=== PATIENT | female | born 1965 | race Hispanic/Latino ===

== ENCOUNTER 2018-08-21 14:21 | Emergency (ER) | payer OTHER ==
--- OUTSIDE RECORDS SUMMARY | 2018-08-21 14:23 | XMS REPORT | Clinical Summary ---
:1965 Author Organization [facility] Address [address] [place] [address] Phone Care Team Providers Name Role Phone Unavailable Primary Care Provider Unavailable Allergies No Known Allergies Current Medications Prescription Sig. Disp. Refills Start Date End Date Status risperiDONE (RISPERDAL) Take 4 mg by Active 4 MG tablet mouth 2 (two) times daily. insulin syringe-needle To use 4 a day. 400 each 3 05/09/2016 Active U-100 1 mL 31 x 5/16" Syrg Active Problems Problem Noted Date Hypokalemia 05/10/2016 Hypomagnesemia 05/10/2016 Essential hypertension 05/08/2016 Metabolic syndrome 05/08/2016 DM ketoacidosis type II, uncontrolled ([facility]) 05/08/2016 Bipolar affective disorder in remission ([facility]) 05/08/2016 DKA (diabetic ketoacidoses) ([facility]) 05/07/2016 Immunizations Name Dates Previously Given Next Due Influenza Three-TIV PF 5+ YRS 05/09/2016 Social History Tobacco Use Types Packs/Day Years Used Date Never Smoker Sex Assigned at Date Recorded Not on file Last Filed Vital Signs Not on file Plan of Treatment Not on file Results Not on fileafter 08/20/2017
[2018-08-21] MEDS ORDERED: NA CHLORIDE 0.9% 500 ML ONE ×2 (15:26→17:42)
[2018-08-21] MEDS ORDERED: ONDANSETRON 4 MG/2 ML VIAL ONE (15:26)
[2018-08-21] MEDS ORDERED: MORPHINE 4 MG/ML SYR ONE (15:26)
[2018-08-21 15:30] LABS: Absolute Lymphocytes (CBC) 1.1 K/uL (0.7-4.9); Absolute Monocytes 0.4 K/uL (0.1-1.3); Absolute Neutrophil 6.2 K/uL (1.8-8.0); Basophils % 0.3 % (0-1.3); Hematocrit 31.1 % (36.0-45.0); Lymphocytes % 13.9 % (15.3-44.8); MCV 83.9 fL (80-100); MPV 6.6 fL (7.6-11.3); Monocytes % 4.9 % (3.3-12.3); RBC Red Blood Cell Count 3.71 M/uL (3.86-4.86)
[2018-08-21 15:56] LABS: Urine Blood TRACE (NEG); Urine Glucose NEGATIVE (NEG); Urine Protein NEGATIVE (NEG); Urine Specific Gravity 1.025 (1.005-1.030)
[2018-08-21 16:32] LABS: Albumin 3.9 g/dL (3.4-5.0); Bilirubin Direct 0.2 mg/dL (0-0.2); Bilirubin Total 0.3 mg/dL (0.2-1.0); Potassium 3.5 mmol/L (3.5-5.1); Protein, Total 8.3 g/dL (6.4-8.2)
[2018-08-21 17:02] LABS: Urine Bacteria <20 /HPF (<20); Urine Culture Reflex Order REFLEXED; Urine RBC <5 /HPF (NONE SEEN)
--- NOTE | 2018-08-21 17:11 | RAD REPORT ---
EXAM DESCRIPTION: CT - Abdomen Pelvis W Contrast - 08/21/2018 4:48 pm CLINICAL HISTORY: Abdominal pain with vomiting. Status post hysterectomy approximately 2 weeks ago COMPARISON: October 2017 TECHNIQUE: Computed axial tomography of the abdomen pelvis was obtained. 100 cc Isovue-300 was admin istered intravenously. Oral contrast was not requested which limits evaluation of bowel. All CT scans are performed using dose optimization technique as appropriate and may include automated exposure control or mA/KV adjustment according to patient size. FINDINGS: Liver has a diminished attenuation consistent with fatty infiltration Spleen, pancreas, and adrenals appear unremarkable. Mild renal cortical thinning likely secondary to prior inflammation There is no evidence of diverticulitis. Appendix is normal A hysterectomy has been performed. Air is present within the vagina. Sigmoid colon abuts the vagina. Significant stranding within the adjacent fat is not seen. A fluid collection is not noted A heterogeneous fluid collection is present within the anterior subcutaneous fat of the pelvis near m idline measuring 55 millimeters IMPRESSION: Heterogeneous fluid collection within the anterior subcutaneous fat of the pelvis near m idline measuring 55 millimeters likely represents a subacute hematoma Small amount of air is present within the vagina. Presumably this is not significant. Infection and f istula can result in this appearance and should be correlated clinically
--- NOTE | 2018-08-21 17:48 | ER ---
Nurse's Notes [facility] Name: Mary Jane Jacobsen Age: 53 yrs Sex: Female : 1965 Arrival Date: 08/21/2018 Time: 14:24 Bed 7 Private MD: Diagnosis: Hematoma of abdominal wall Presentation: 08/21 14:33 Presenting complaint: Patient states: lower abd pain. Pt states "the abdominal pain aa5 started right after I vomited about 2 days ago and it felt like something ruptured inside". Pt states "I just vomited once". Pt reports hysterectomy completed 08/09/18 at [facility]. Transition of care: patient was not received from another setting of care. Onset of symptoms was August 2018. Risk Assessment: Do you want to hurt yourself or someone else? Patient reports no desire to harm self or others. Initial Sepsis Screen: Does the patient meet any 2 criteria? No. Patient's initial sepsis screen is negative. Does the patient have a suspected source of infection? No. Patient's initial sepsis screen is negative. Care prior to arrival: None. 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 - Social history:: Smoking status: Patient/guardian denies using tobacco. - Ebola Screening: : No symptoms or risks identified at this time. - Family history:: not pertinent. - Hospitalizations: : Patient was recently seen at. Screenin:22 Abuse screen: Denies threats or abuse. Nutritional screening: No deficits noted. la1 Tuberculosis screening: No symptoms or risk factors identified. Fall Risk None identified. Assessment: 15:21 General: Appears uncomfortable, Behavior is calm, cooperative. Pain: Complains of pain la1 in suprapubic area, right lower quadrant and left lower quadrant. Neuro: Level of Consciousness is awake, alert, obeys commands, Oriented to person, place, time, situation. Cardiovascular: Capillary refill < 3 seconds Patient's skin is warm and dry. Respiratory: Airway is patent Respiratory effort is even, unlabored, Respiratory pattern is regular, symmetrical. GI: Abdomen is obese, Bowel sounds present X 4 quads. Abd is soft X 4 quads. : No signs and/or symptoms were reported regarding the genitourinary system. 18:07 Reassessment: Patient appears in no apparent distress at this time. No changes from la1 previously documented assessment. Patient and/or family updated on plan of care and expected duration. Pain level reassessed. Patient is alert, oriented x 3, equal unlabored respirations, skin warm/dry/pink. GI: surgical abdominal wound well approximated without redness swelling or drainage. Vital Signs: 14:35 BP 139 / 80; Pulse 114; Resp 18 S; Temp 97.2(TE); Pulse Ox 96% on R/A; Weight 91.63 kg aa5 (R); Height 5 ft. 5 in. (165.10 cm) (R); Pain 8/10; 16:13 BP 124 / 77; Pulse 98; Resp 16; Pulse Ox 98% on R/A; la1 18:07 BP 122 / 74; Pulse 86; Resp 16; Pulse Ox 98% on R/A; la1 14:35 Body Mass Index 33.61 (91.63 kg, 165.10 cm) aa5 ED Course: 14:24 Patient arrived in ED. as 14:34 Triage completed. aa5 14:35 Arm band placed on. aa5 14:36 Rosendo Colmenares, RN is Primary Nurse. la1 14:37 Lyndon Causey MD is Attending Physician. rn 15:21 No provider procedures requiring assistance completed. Inserted saline lock: 20 gauge la1 in right antecubital area, using aseptic technique. Blood collected. 15:54 Radiology exam delayed due to lab results not completed at this time. (BUN/Creatinine). jg6 16:14 Placed in gown. Bed in low position. Call light in reach. la1 16:42 CT completed. Patient moved to CT via wheelchair. Patient moved back from CT. jg6 16:48 CT Abd/Pelvis - W/Contrast In Process Unspecified. EDMS 18:07 IV discontinued, intact, bleeding controlled, No redness/swelling at site. Pressure la1 dressing applied. Administered Medications: 15:35 Drug: NS 0.9% 500 ml Route: IV; Rate: bolus; Site: right antecubital; ph 16:23 Follow up: IV Status: Completed infusion la1 15:35 Drug: morphine 4 mg Route: IVP; Site: right antecubital; ph 16:23 Follow up: Response: No adverse reaction; Pain is decreased la1 15:35 Drug: Zofran 4 mg Route: IVP; Site: right antecubital; ph 16:23 Follow up: Response: No adverse reaction la1 18:07 Not Given (Physician Discretion): NS 0.9% 500 ml IV at bolus once la1 Outcome: 17:48 Discharge ordered by . rn 18:07 Discharged to home ambulatory. la1 18:07 Condition: stable 18:07 Discharge instructions given to patient, Instructed on discharge instructions, follow up and referral plans. medication usage, Demonstrated understanding of instructions, follow-up care, medications, Prescriptions given X 3. 18:08 Patient left the ED. la1 Addendum: 08/24/2018 08:47 Addendum: Culture Results: Positive urine culture. Instruct pt to follow up with PCP a a5 (sensitive to other cephalosporins) per Sandra Obrien NP. Unable to contact patient, pt's phone number not active at this time. Attempted to contact pt's daughter Jodie per contact information on file and phone number does not belong to pt's daughter. Signatures: Dispatcher [employer] Elana Willoughby Roman, MD MD rn Calderon, Audri, RN RN aa5 Rosendo Colmenares RN RN laYvette Tellez RN RN Brianda Friend
--- NOTE | 2018-08-21 17:48 | EDPHYS ---
Physician Documentation [facility] Name: Mary Jane Jacobsen Age: 53 yrs Sex: Female : 1965 Arrival Date: 08/21/2018 Time: 14:24 Bed 7 Private MD: ED Physician Lyndon Causey HPI: 08/21 15:21 This 53 yrs old Female presents to ER via Ambulatory with complaints of rn Abdominal Pain - post hysterectomy. 15:21 The patient presents with abdominal pain. rn 15:21 Onset: The symptoms/episode began/occurred 2 day(s) ago. The symptoms do not radiate. rn Associated signs and symptoms: Pertinent positives: nausea and vomiting, constipation, Pertinent negatives: fever, hematuria, vaginal discharge, vomiting blood. The symptoms are described as crampy, intermittent, sharp. Modifying factors: The symptoms are alleviated by nothing, the symptoms are aggravated by movement, touching the area, vomiting. Severity of pain: At its worst the pain was moderate in the emergency department the pain has improved. The patient has not experienced similar symptoms in the past. Reports hysterectomy at [facility] almost 2 weeks ago, uncomplicated surgery, was doing fine until 2 days ago, had single episode of vomiting, states "a lot", and felt something in abdomen "rip open", + constipation, but having bowel movements, ran out of pain meds recently. . 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 - Social history:: Smoking status: Patient/guardian denies using tobacco. - Ebola Screening: : No symptoms or risks identified at this time. - Family history:: not pertinent. - Hospitalizations: : Patient was recently seen at. ROS: 15:21 Constitutional: Negative for fever, chills, and weight loss, Eyes: Negative for injury, rn pain, redness, and discharge, Neck: Negative for injury, pain, and swelling, Cardiovascular: Negative for chest pain, palpitations, and edema, Respiratory: Negative for shortness of breath, cough, wheezing, and pleuritic chest pain, Abdomen/GI: + abdominal pain and constipation MS/Extremity: Negative for injury and deformity, Skin: Negative for injury, rash, and discoloration, Neuro: Negative for headache, weakness, numbness, tingling, and seizure. Exam: 15:21 Constitutional: Overweight female, no acute distress Head/Face: Normocephalic, rn atraumatic. Eyes: Pupils equal round and reactive to light, extra-ocular motions intact. Lids and lashes normal. Conjunctiva and sclera are non-icteric and not injected. Cornea within normal limits. Periorbital areas with no swelling, redness, or edema. Cardiovascular: tachycardic, regular, no murmur Respiratory: Lungs have equal breath sounds bilaterally, clear to auscultation. No increased work of breathing, no retractions or nasal flaring. Abdomen/GI: soft, mild LLQ tenderness, wound c/d/i, no signs of superficial infection Skin: Warm, dry with normal turgor. Normal color with no rashes, no lesions, and no evidence of cellulitis. MS/ Extremity: Pulses equal, no cyanosis. Neurovascular intact. Full, normal range of motion. Equal circumference. Neuro: Awake and alert, GCS 15, oriented to person, place, time, and situation. Cranial nerves II-XII grossly intact. Motor strength 5/5 in all extremities. Sensory grossly intact. Vital Signs: 14:35 BP 139 / 80; Pulse 114; Resp 18 S; Temp 97.2(TE); Pulse Ox 96% on R/A; Weight 91.63 kg aa5 (R); Height 5 ft. 5 in. (165.10 cm) (R); Pain 8/10; 16:13 BP 124 / 77; Pulse 98; Resp 16; Pulse Ox 98% on R/A; la1 18:07 BP 122 / 74; Pulse 86; Resp 16; Pulse Ox 98% on R/A; la1 14:35 Body Mass Index 33.61 (91.63 kg, 165.10 cm) aa5 MDM: 14:37 Patient medically screened. rn 17:41 Differential diagnosis: diverticulitis, non-specific abd pain, urinary tract infection, rn hematoma, post-op complication, fluid collection. Data reviewed: vital signs, nurses notes, lab test result(s), radiologic studies, CT scan. Counseling: I had a detailed discussion with the patient and/or guardian regarding: the historical points, exam findings, and any diagnostic results supporting the discharge/admit diagnosis, lab results, radiology results, the need for outpatient follow up, to return to the emergency department if symptoms worsen or persist or if there are any questions or concerns that arise at home. Response to treatment: the patient's symptoms have markedly improved after treatment, and as a result, I will discharge patient. Special discussion: Based on the patient's Hx, exam, and Dx evaluation, there is no indication for emergent surgery or inpatient Tx. It is understood by the patient/guardian that if the Sx's persist or worsen they need to return immediately for re-evaluation. I discussed with the patient/guardian in detail that at this point there is no indication for admission to the hospital. It is understood, however, that if the symptoms persist or worsen the patient needs to return immediately for re-evaluation. ED course: Pt with ct showing some post-op changes along with subcutaneous hematoma, no stranding, no sign of fluid collection or stranding, normal WBC, afebrile, non-toxic, hematoma of subcutaneous tissue fits with story of vomiting and feeling like something tore, only involves subcutaneous tissues, peritoneum intact, will dc home with pain meds, warm compresses, abx, and has appt with her surgeon in 1 week. . 08/21 14:57 Order name: Basic Metabolic Panel; Complete Time: 17: rn 08/21 14:57 Order name: CBC with Diff; Complete Time: 17: rn 08/21 14:57 Order name: Creatinine for Radiology; Complete Time: 17: rn 08/21 14:57 Order name: Hepatic Function; Complete Time: 17: rn 08/21 14:57 Order name: Lipase; Complete Time: 17:09 rn 08/21 14:57 Order name: Urine Microscopic Only; Complete Time: 17:09 rn 08/21 14:57 Order name: IV Saline Lock; Complete Time: 15:42 rn 08/21 14:57 Order name: CT Abd/Pelvis - W/Contrast; Complete Time: 17:20 rn 08/21 15:44 Order name: Urine Dipstick--Ancillary (enter results); Complete Time: 17:09 eb 08/21 17:03 Order name: Urine Culture EDTX 08/21 14:57 Order name: Labs collected and sent; Complete Time: 15:42 rn 08/21 14:57 Order name: Urine Dipstick-Ancillary (obtain specimen); Complete Time: 15:42 rn Administered Medications: 15:35 Drug: NS 0.9% 500 ml Route: IV; Rate: bolus; Site: right antecubital; ph 16:23 Follow up: IV Status: Completed infusion la1 15:35 Drug: morphine 4 mg Route: IVP; Site: right antecubital; ph 16:23 Follow up: Response: No adverse reaction; Pain is decreased la1 15:35 Drug: Zofran 4 mg Route: IVP; Site: right antecubital; ph 16:23 Follow up: Response: No adverse reaction la1 18:07 Not Given (Physician Discretion): NS 0.9% 500 ml IV at bolus once la1 Disposition: 08/21/18 17:48 Discharged to Home. Impression: Hematoma of abdominal wall. - Condition is Stable. - Discharge Instructions: Hematoma. - Prescriptions for Keflex 500 mg Oral Capsule - take 1 capsule by ORAL route every 12 hours for 10 days; 20 capsule. Tylenol- Codeine #3 300-30 mg Oral Tablet - take 1 tablet by ORAL route every 6 hours As needed; 15 tablet. Doxycycline Monohydrate 100 mg Oral Tablet - take 1 tablet by ORAL route every 12 hours for 10 days; 20 tablet. - Medication Reconciliation Form, Thank You Letter, Antibiotic Education, Prescription Opioid Use form. - Follow up: Private Physician; When: 5 - 6 days; Reason: Recheck today's complaints, Re-evaluation by your physician. - Problem is new. - Symptoms have improved. Signatures: Dispatcher [employer] EDMS Lyndon Causey MD MD rn Calderon, Audri, RN RN aa5 Rosendo Colmenares RN RN la1 Yvette Davis RN RN ph Corrections: (The following items were deleted from the chart) 18:08 17:48 08/21/2018 17:48 Discharged to Home. Impression: Hematoma of abdominal wall. la1 Condition is Stable. Forms are Medication Reconciliation Form, Thank You Letter, Antibiotic Education, Prescription Opioid Use. Follow up: Private Physician; When: 5 - 6 days; Reason: Recheck today's complaints, Re-evaluation by your physician. Problem is new. Symptoms have improved. rn
[2018-08-21 18:17] VITALS: TEMP 97.2
[2018-08-21 18:18] VITALS: O2SAT 98
[2018-08-21 18:20] VITALS: BP 122/74
== END 2018-08-21 18:08 | disposition home or self-care (01) ==
LOC: ER 14:21
DX: S30.1XXA Contusion of abdominal wall, initial encounter (principal); Z90.710 Acquired absence of both cervix and uterus; I10 Essential (primary) hypertension
CPT/HCPCS: 36415; 74177; 80048; 80076; 83690; 85025; 87077; 87086; 87088; 87186; 96361; 96374; 96375; 99284; J2405; Q9967; 81003; 81015

== ENCOUNTER 2018-08-26 16:43 | Emergency (ER) | payer OTHER ==
--- OUTSIDE RECORDS SUMMARY | 2018-08-26 17:07 | XMS REPORT | Clinical Summary ---
:1965 [address] [facility] Address [address] [place] [address] Phone Care Team Providers Name Role Phone [...] syndrome 05/08/2016 DM ketoacidosis type II, uncontrolled ([facility]) 05/08/2016 Bipolar affective disorder in remission ([facility]) 05/08/2016 DKA (diabetic ketoacidoses) ([facility]) 05/07/2016 Immunizations Name Dates Previously Given Next Due Influenza Three-TIV PF 5+ YRS 05/09/2016 Social History Tobacco Use Types Packs/Day Years Used Date Never Smoker Sex Assigned at Date Recorded Not on file Last Filed Vital Signs Not on file Plan of Treatment Not on file Results Not on fileafter 08/25/2017
[2018-08-26] MEDS ORDERED: NA CHLORIDE 0.9% 500 ML ONE (17:38)
[2018-08-26 17:50] LABS: Absolute Monocytes 0.4 K/uL (0.1-1.3); Absolute Neutrophil 4.6 K/uL (1.8-8.0); Basophils % 0.3 % (0-1.3); Eosinophils % 4.7 % (0-4.4); Hematocrit 31.2 % (36.0-45.0); Lymphocytes % 16.5 % (15.3-44.8); MCH 28.9 pg (27.0-35.0); MPV 6.7 fL (7.6-11.3); Monocytes % 5.7 % (3.3-12.3); RBC Red Blood Cell Count 3.75 M/uL (3.86-4.86)
[2018-08-26] MEDS ORDERED: FENTANYL CITR 100 MCG/2 ML ONE (18:08)
[2018-08-26 18:45] LABS: ALT/SGPT 54 U/L (12-78); AST/SGOT 28 U/L (15-37); Alkaline Phosphatase 108 U/L (45-117); BUN Blood Urea Nitrogen 24 mg/dL (7-18); Bicarbonate 29 mmol/L (21-32); Bilirubin Direct < 0.1 mg/dL (0-0.2); Bilirubin Total 0.3 mg/dL (0.2-1.0); Glucose Level 129 mg/dL (74-106); Lipase 294 U/L (73-393); Magnesium 1.9 mg/dL (1.8-2.4); Potassium 3.5 mmol/L (3.5-5.1); Sodium Level 140 mmol/L (136-145)
[2018-08-26] MEDS ORDERED: D50W 25 GM/50 ML SYRINGE IV ONE (18:55)
[2018-08-26] MEDS ORDERED: CLINDAMYCIN 900MG/D5W 900 MG/50 ML BAG IV ONE (19:02)
[2018-08-26] MEDS ORDERED: SMZ./TMP. 800/160 MG TABLET ONE (19:02)
--- NOTE | 2018-08-26 19:57 | ER ---
Nurse's Notes [facility] Name: Mary Jane Jacobsen Age: 53 yrs Sex: Female : 1965 Arrival Date: 08/26/2018 Time: 16:47 Bed 8 Private MD: Diagnosis: Cellulitis of abdominal wall Presentation: 08/26 16:51 Presenting complaint: Patient states: pt had a hysterectomy 2 weeks ago, pt was seen sv here Thursday for having the incision open after coughing. Pt reports that now her incision has opened up more and "leaking stuff.". Transition of care: patient was not received from another setting of care. Onset of symptoms was August 26, 2018. Care prior to arrival: None. 16:51 Method Of Arrival: Wheelchair sv 16:51 Acuity: MILLY 3 sv 17:20 Risk Assessment: Do you want to hurt yourself or someone else? Patient reports no hj desire to harm self or others. Initial Sepsis Screen: Does the patient meet any 2 criteria? No. Patient's initial sepsis screen is negative. Does the patient have a suspected source of infection? No. Patient's initial sepsis screen is negative. Triage Assessment: 17:19 General: Appears in no apparent distress. uncomfortable, Behavior is calm, cooperative, hj appropriate for age. Pain: Complains of pain in abdomen. EENT: No signs and/or symptoms were reported regarding the EENT system. Neuro: Level of Consciousness is awake, alert, obeys commands, Oriented to person, place, time, situation, Appropriate for age. Cardiovascular: Capillary refill < 3 seconds Patient's skin is warm and dry. Respiratory: Airway is patent Respiratory effort is even, unlabored, Respiratory pattern is regular, symmetrical. GI: Reports lower abdominal pain, incision sites; stats" my incision is open". : No signs and/or symptoms were reported regarding the genitourinary system. Derm: Musculoskeletal: No signs and/or symptoms reported regarding the musculoskeletal system. 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 - Social history:: Smoking status: Patient/guardian denies using tobacco. - Ebola Screening: : No symptoms or risks identified at this time. Screenin:19 Abuse screen: Denies threats or abuse. Denies injuries from another. Nutritional hj screening: No deficits noted. Tuberculosis screening: No symptoms or risk factors identified. Fall Risk None identified. Assessment: 17:22 Reassessment: see triage for assessment;. hj 18:39 Reassessment: awaiting results and POC:. hj 20:07 Reassessment: Patient and/or family updated on plan of care and expected duration. Pain tl1 level reassessed. Patient is alert, oriented x 3, equal unlabored respirations, skin warm/dry/pink. Patient states feeling better. Patient states symptoms have improved. Vital Signs: 16:52 BP 152 / 81; Pulse 101; Resp 18; Temp 97.5; Pulse Ox 99% ; Weight 92.08 kg; Height 5 sv ft. 5 in. (165.10 cm); Pain 10/10; 18:39 BP 133 / 69; Pulse 95; Resp 18; Pulse Ox 100% on R/A; hj 19:08 BP 146 / 72; Pulse 101; Resp 17; Pulse Ox 98% on R/A; tl1 19:36 BP 148 / 82; Pulse 99; Pulse Ox 97% on R/A; tl2 19:55 BP 148 / 82; Pulse 96; Resp 18; Pulse Ox 100% on R/A; mt 20:08 Temp 97.2; Pain 2/10; tl1 16:52 Body Mass Index 33.78 (92.08 kg, 165.10 cm) sv ED Course: 16:47 Patient arrived in ED. as 16:52 Triage completed. sv 16:53 Arm band placed on. sv 17:18 Justni Linares, GAVIN is Primary Nurse. hj 17:19 Initial lab(s) drawn, by wy. Inserted saline lock: 22 gauge in right antecubital area, hj using aseptic technique. Blood collected. 17:20 Patient has correct armband on for positive identification. Placed in gown. Bed in low hj position. Call light in reach. Side rails up X 1. 17:22 Miles Yu PA is PHCP. cp 17:22 Roly Car MD is Attending Physician. cp 19:14 Hui Adorno, GAVIN is Primary Nurse. tl1 20:08 No provider procedures requiring assistance completed. IV discontinued, intact, tl1 bleeding controlled, No redness/swelling at site. Pressure dressing applied. 20:11 Primary Nurse role handed off by Hui Adorno RN tl1 20:32 Wound care: to surgical incision located on abdomen was cleaned with with normal tl1 saline, dressed with steri strips. Administered Medications: 17:30 Drug: NS 0.9% 500 ml Route: IV; Rate: bolus; Site: right antecubital; hj 20:09 Follow up: IV Status: Completed infusion tl1 17:58 Drug: fentaNYL (PF) 25 mcg Route: IVP; Site: right antecubital; hj 20:03 Follow up: Response: No adverse reaction; Marked relief of symptoms; Pain is decreased tl1 18:48 Drug: D50W 50 ml Route: IVP; Site: right antecubital; hj 20:02 Follow up: Response: No adverse reaction; Marked relief of symptoms; Blood sugar is tl1 elevated 18:50 Drug: Clindamycin 900 mg Route: IVPB; Infused Over: 30 mins; Site: right antecubital; hj 20:09 Follow up: IV Status: Completed infusion tl1 18:50 Drug: Bactrim (160 mg-800 mg (DS) 1 tablet Route: PO; hj 20:03 Follow up: Response: No adverse reaction; No change in condition; Medication tl1 administered at discharge. Point of Care Testing: Blood Glucose: 18:50 Blood Glucose: 42 mg/dL; hj 19:14 Blood Glucose: 160 mg/dL; tl1 Ranges: Outcome: 19:56 Discharge ordered by . cp 20:08 Discharged to home ambulatory, with family. tl1 20:08 Condition: improved 20:08 Discharge instructions given to patient, Instructed on discharge instructions, follow up and referral plans. medication usage, Demonstrated understanding of instructions, follow-up care, medications, Prescriptions given X 2. 20:10 Patient left the ED. tl1 20:34 Patient left the ED. tl1 Signatures: Laurita Hunter RN RN sv Martinez, Amelia as Lasagna, Tonya, RN RN tl1 Justin Linares RN RN hj Page, Corey, PA PA cp Knox, Taylor, RN RN tl2 Mariely Suazo mt
--- NOTE | 2018-08-26 19:57 | EDPHYS ---
Physician Documentation [facility] Name: Mary Jane Jacobsen Age: 53 yrs Sex: Female : 1965 Arrival Date: 08/26/2018 Time: 16:47 Bed 8 Private MD: ED Physician Roly Car HPI: 08/26 17:30 This 53 yrs old Female presents to ER via Wheelchair with complaints of cp Incision Problem. 17:30 The patient presents with abdominal pain in the lower abdomen. cp 17:30 Onset: The symptoms/episode began/occurred gradually. Associated signs and symptoms: cp Pertinent negatives: nausea and vomiting, chest pain, constipation, diarrhea, dysuria, fever. 17:30 Patient reports having hysterectomy 2 weeks at [facility] and reports noticing cp drainage from wound that has increased since being seen on 08-21-2018. Patient reports she has been taking prescribed doxycycline. 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 - Social history:: Smoking status: Patient/guardian denies using tobacco. - Ebola Screening: : No symptoms or risks identified at this time. ROS: 17:35 Constitutional: Negative for body aches, chills, fever, poor PO intake. cp 17:35 Eyes: Negative for injury, pain, redness, and discharge. cp 17:35 ENT: Negative for drainage from ear(s), ear pain, sore throat, difficulty swallowing, difficulty handling secretions. 17:35 Cardiovascular: Negative for chest pain, edema, palpitations. 17:35 Respiratory: Negative for cough, shortness of breath, wheezing. 17:35 Abdomen/GI: Positive for abdominal pain, Negative for constipation, black/tarry stool, rectal bleeding. 17:35 Neuro: Negative for altered mental status, headache, weakness. 17:35 All other systems are negative. Exam: 17:40 Head/Face: Normocephalic, atraumatic. cp 17:40 Constitutional: The patient appears in no acute distress, alert, awake, non-diaphoretic, non-toxic, well developed, well nourished. 17:40 Eyes: Periorbital structures: appear normal, Conjunctiva: normal, no exudate, no cp injection, Sclera: no appreciated abnormality, Lids and lashes: appear normal, bilaterally. 17:40 ENT: External ear(s): are unremarkable, Nose: is normal, Mouth: Lips: moist, Oral mucosa: moist, Posterior pharynx: is normal, airway is patent, no erythema, no exudate. 17:40 Chest/axilla: Inspection: normal, Palpation: is normal, no crepitus, no tenderness. 17:40 Cardiovascular: Rate: tachycardic, Rhythm: regular. 17:40 Respiratory: the patient does not display signs of respiratory distress, Respirations: normal, no use of accessory muscles, no retractions, no splinting, no tachypnea, labored breathing, is not present, Breath sounds: are clear throughout, no decreased breath sounds, no stridor, no wheezing. 17:40 Abdomen/GI: Inspection: scar(s), are noted in the midline lower abdomen, surgical wound appears with mild dehiscence, scant colored drainage noted, minimal erythema. 17:40 Back: pain, is absent, ROM is normal. Vital Signs: 16:52 BP 152 / 81; Pulse 101; Resp 18; Temp 97.5; Pulse Ox 99% ; Weight 92.08 kg; Height 5 sv ft. 5 in. (165.10 cm); Pain 10/10; 18:39 BP 133 / 69; Pulse 95; Resp 18; Pulse Ox 100% on R/A; hj 19:08 BP 146 / 72; Pulse 101; Resp 17; Pulse Ox 98% on R/A; tl1 19:36 BP 148 / 82; Pulse 99; Pulse Ox 97% on R/A; tl2 19:55 BP 148 / 82; Pulse 96; Resp 18; Pulse Ox 100% on R/A; mt 20:08 Temp 97.2; Pain 2/10; tl1 16:52 Body Mass Index 33.78 (92.08 kg, 165.10 cm) sv MDM: 17:22 Patient medically screened. cp 19:55 Data reviewed: vital signs, nurses notes, old medical records, lab test result(s), and cp as a result, I will discharge patient. 19:55 ED course: VSS. Culture report and CT report of abdomen/pelvis reviewed from visit on cp 08-21-2018. Will have patient stop doxycycline and start oral clindamycin and Bactrim. Patient reports having appt with surgeon tomorrow. 08/26 17:29 Order name: Basic Metabolic Panel; Complete Time: 18:47 cp 08/26 18:47 Interpretation: Normal except: GLUC 129; BUN 24; GFR 58. cp 08/26 17:29 Order name: CBC with Diff; Complete Time: 18:18 cp 08/26 18:18 Interpretation: Normal except: WBC 6.3; RBC 3.75; HGB 10.8; HCT 31.2; PLT 490; MPV 6.7; cp EOSINOPHIL % 4.7. 08/26 17:29 Order name: Creatinine for Radiology; Complete Time: 18:18 cp 08/26 18:18 Interpretation: Abnormal: GFR 58. cp 08/26 17:29 Order name: Hepatic Function; Complete Time: 18:47 cp 08/26 17:29 Order name: Lipase; Complete Time: 18:47 cp 08/26 17:29 Order name: Magnesium; Complete Time: 18:47 cp 08/26 17:29 Order name: IV Saline Lock; Complete Time: 17:30 cp 08/26 17:29 Order name: Labs collected and sent; Complete Time: 17:30 cp 08/26 20:12 Order name: Wound dressing: redress with steri strips; Complete Time: 20:27 cp Administered Medications: 17:30 Drug: NS 0.9% 500 ml Route: IV; Rate: bolus; Site: right antecubital; hj 20:09 Follow up: IV Status: Completed infusion tl1 17:58 Drug: fentaNYL (PF) 25 mcg Route: IVP; Site: right antecubital; hj 20:03 Follow up: Response: No adverse reaction; Marked relief of symptoms; Pain is decreased tl1 18:48 Drug: D50W 50 ml Route: IVP; Site: right antecubital; hj 20:02 Follow up: Response: No adverse reaction; Marked relief of symptoms; Blood sugar is tl1 elevated 18:50 Drug: Clindamycin 900 mg Route: IVPB; Infused Over: 30 mins; Site: right antecubital; hj 20:09 Follow up: IV Status: Completed infusion tl1 18:50 Drug: Bactrim (160 mg-800 mg (DS) 1 tablet Route: PO; 20:03 Follow up: Response: No adverse reaction; No change in condition; Medication tl1 administered at discharge. Point of Care Testing: Blood Glucose: 18:50 Blood Glucose: 42 mg/dL; hj 19:14 Blood Glucose: 160 mg/dL; tl1 Ranges: Critical Glucose Levels:Adult <50 mg/dl or >400 mg/dl <40 mg/dl or >180 mg/dl Disposition: 08/26/18 19:56 Discharged to Home. Impression: Cellulitis of abdominal wall. - Condition is Stable. - Discharge Instructions: Cellulitis, Adult, Surgical Wound Debridement, Care After. - Prescriptions for Clindamycin HCl 300 mg Oral Capsule - take 1 capsule by ORAL route every 6 hours for 10 days; 40 capsule. Bactrim DS 800- 160 mg Oral Tablet - take 1 tablet by ORAL route every 12 hours for 10 days; 20 tablet. - Medication Reconciliation Form, Thank You Letter, Antibiotic Education, Prescription Opioid Use form. - Follow up: Private Physician; When: Tomorrow; Reason: Recheck today's complaints, as scheduled for wound check. - Problem is an ongoing problem. - Symptoms have improved. Addendum: 08/28/2018 13:34 Co-signature as Attending Physician, Roly Car MD. tahir beasley Signatures: Dispatcher [employer] Laurita Rose RN RN sv Rittger, Kevin, MD MD kdr Lasagna, Tonya, RN RN tl1 Justin Linares RN RN hj Page, Corey, PA PA cp Corrections: (The following items were deleted from the chart) 08/26 20:10 19:56 08/26/2018 19:56 Discharged to Home. Impression: Cellulitis of abdominal wall. tl1 Condition is Stable. Forms are Medication Reconciliation Form, Thank You Letter, Antibiotic Education, Prescription Opioid Use. Follow up: Private Physician; When: Tomorrow; Reason: Recheck today's complaints, as scheduled for wound check. Problem is an ongoing problem. Symptoms have improved. cp 20:34 20:10 08/26/2018 19:56 Discharged to Home. Impression: Cellulitis of abdominal wall. tl1 Condition is Stable. Discharge Instructions: Cellulitis, Adult, Surgical Wound Debridement, Care After. Prescriptions for Clindamycin HCl 300 mg Oral Capsule - take 1 capsule by ORAL route every 6 hours for 10 days; 40 capsule, Bactrim DS 800-160 mg Oral Tablet - take 1 tablet by ORAL route every 12 hours for 10 days; 20 tablet. and Forms are Medication Reconciliation Form, Thank You Letter, Antibiotic Education, Prescription Opioid Use. Follow up: Private Physician; When: Tomorrow; Reason: Recheck today's complaints, as scheduled for wound check. Problem is an ongoing problem. Symptoms have improved. tl1
[2018-08-26 20:32] VITALS: BP 148/82
[2018-08-26 20:33] VITALS: O2SAT 100
[2018-08-26 20:34] VITALS: TEMP 97.2
== END 2018-08-26 20:34 | disposition home or self-care (01) ==
LOC: ER 16:43
DX: L03.311 Cellulitis of abdominal wall (principal); I10 Essential (primary) hypertension; Z90.710 Acquired absence of both cervix and uterus
CPT/HCPCS: 36415; 80048; 80076; 83690; 83735; 85025; 96361; 96365; 96375; 99284; J3010; 82962

== ENCOUNTER 2018-11-11 16:37 | Emergency (ER) | payer OTHER ==
--- OUTSIDE RECORDS SUMMARY | 2018-11-11 16:40 | XMS REPORT ---
:1965 Author Organization [facility] Address [address] [place] [address] [place] [id number] Care Team Providers Name Role Phone Unavailable Unavailable Unavailable Problems This patient has no known problems. Allergies, Adverse Reactions, Alerts This patient has no known allergies or adverse reactions. Medications This patient has no known medications.
--- OUTSIDE RECORDS SUMMARY | 2018-11-11 16:40 | XMS REPORT | Clinical Summary ---
:1965 Author Organization [facility] Address [address] [place] [address] Care Team Providers Name Role Phone Magaly Primary Care Provider Allergies No Known Allergies Medications Medication Sig Dispensed Refills Start Date End Date Status risperiDONE (RISPERDAL) Take 4 mg by 0 Active 4 MG tablet mouth 2 (two) times daily. insulin syringe-needle To use 4 a day. 400 each 3 05/09/2016 Active U-100 1 mL 31 x 5/16" Syrg Active Problems Problem Noted Date Hypokalemia 05/10/2016 Hypomagnesemia 05/10/2016 Essential hypertension 05/08/2016 Metabolic syndrome 05/08/2016 DM ketoacidosis type II, uncontrolled 05/08/2016 Bipolar affective disorder in remission 05/08/2016 DKA (diabetic ketoacidoses) 05/07/2016 Immunizations Name Dates Previously Given Next Due Influenza Three-TIV PF 5+ YRS 05/09/2016 Social History Tobacco Use Types Packs/Day Years Used Date Never Smoker Sex Assigned at Date Recorded Not on file Job Start Date Occupation Industry Not on file Not on file Not on file Travel History Travel Start Travel End No recent travel history available. Last Filed Vital Signs Not on file Plan of Treatment Not on file Results Not on fileafter 11/10/2017 Advance Directives For more information, please contact:[facility] [place] [address] [phone] Code Status Date Activated Date Inactivated Comments Full Code 05/07/2016 3:14 PM 05/11/2016 3:28 PM This code status was determined by: Patient
[2018-11-11 17:20] LABS: Absolute Lymphocytes (CBC) 1.7 K/uL (0.7-4.9); Absolute Monocytes 0.4 K/uL (0.1-1.3); Absolute Neutrophil 5.3 K/uL (1.8-8.0); Basophils % 0.4 % (0-1.3); Eosinophils % 3.6 % (0-4.4); Hematocrit 33.7 % (36.0-45.0); Lymphocytes % 21.7 % (15.3-44.8); MPV 7.1 fL (7.6-11.3); Monocytes % 5.1 % (3.3-12.3); RBC Red Blood Cell Count 4.15 M/uL (3.86-4.86)
[2018-11-11] MEDS ORDERED: ONDANSETRON 4 MG/2 ML VIAL ONE (17:26)
[2018-11-11] MEDS ORDERED: MORPHINE 4 MG/ML SYR ONE (17:26)
--- NOTE | 2018-11-11 17:32 | RAD REPORT ---
EXAM DESCRIPTION: RAD - Chest Single View - 11/11/2018 5:18 pm CLINICAL HISTORY: CHEST PAIN Chest pain. COMPARISON: Chest Single View dated 03/29/2016; Chest Single View dated 03/28/2016; CHEST SINGLE VIEW dated 05/24/2014; CHEST SINGLE VIEW dated 09/12/2013 FINDINGS: Portable technique limits examination quality. The lungs are grossly clear. The heart is normal in size. No displaced fractures. IMPRESSION: No acute intrathoracic process suspected.
[2018-11-11 17:38] LABS: Protime INR 0.93
[2018-11-11 17:39] LABS: ALT/SGPT 44 U/L (12-78); AST/SGOT 27 U/L (15-37); Albumin 3.8 g/dL (3.4-5.0); Alkaline Phosphatase 103 U/L (45-117); BUN Blood Urea Nitrogen 18 mg/dL (7-18); Bicarbonate 28 mmol/L (21-32); Bilirubin Direct < 0.1 mg/dL (0-0.2); Bilirubin Total 0.1 mg/dL (0.2-1.0); Glucose Level 131 mg/dL (74-106); Magnesium 1.5 mg/dL (1.8-2.4); NT PRO-BNP 15 pg/mL (<125); Potassium 3.2 mmol/L (3.5-5.1); Protein, Total 7.6 g/dL (6.4-8.2); Sodium Level 141 mmol/L (136-145); Troponin (Emerg Dept Use Only) < 0.02 ng/mL (0.0-0.045)
[2018-11-11] MEDS ORDERED: POTASSIUM CL SA 10 MEQ TAB PO ONE (18:15)
[2018-11-11] MEDS ORDERED: MAGNESIUM SULFATE 1 gm IVPB 1 GM/100 ML BAG IV ONE (18:15)
--- NOTE | 2018-11-11 19:54 | EDPHYS ---
Physician Documentation [facility] Name: Mary Jane Jacobsen Age: 53 yrs Sex: Female : 1965 Arrival Date: 11/11/2018 Time: 16:49 Bed 8 Private MD: ED Physician Vale Navarro HPI: 11/11 17:30 This 53 yrs old Female presents to ER via EMS with complaints of Chest Pain. pm1 17:30 The patient or guardian reports chest pain that is located primarily in the anterior pm1 aspect of left upper chest. Onset: at 13:00. The pain does not radiate. Associated signs and symptoms: Pertinent negatives: abdominal pain, cough, diaphoresis, dizziness, headache, lightheadedness, nausea, palpitations, shortness of breath, vomiting. The chest pain is described as sharp. Duration: The patient or guardian reports a single episode, that is still ongoing. Modifying factors: The symptoms are alleviated by nothing. the symptoms are aggravated by deep breath, palpation of area, moving her left arm. Severity of pain: in the emergency department the pain is unchanged. The patient has not experienced similar symptoms in the past. 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 - Hysterectomy bp Historical: - Allergies: 16:57 NKDA; bp - Home Meds: 16:57 glimepiride 5 MG Oral tab 1 tab twice a day [Active]; lisinopril-hydrochlorothiazide bp 20-12.5 mg Oral tab 1 tab once daily [Active]; metformin 1,000 mg Oral tab 1 tab daily [Active]; atorvastatin 20 mg oral tab 1 tab once daily [Active]; amitriptyline 50 mg Oral tab 2 tabs once daily [Active]; benztropine 2 mg Oral tab 1 tab 2 times per day [Active]; propranolol 40 mg Oral tab 1 tab 2 times per day [Active]; Risperdal 4 mg Oral tab 2 tabs 2 times per day [Active]; Tegretol 200 mg Oral tab 3 tabs nightly [Active]; fenofibrate nanocrystallized 145 mg oral tab 1 tab once daily [Active]; - PMHx: 16:57 Bipolar disorder; Diabetes - NIDDM; High Cholesterol; Hypertension; Schizophrenia; bp Seizures; - Immunization history:: Adult Immunizations up to date. - Social history:: Smoking status: Patient/guardian denies using tobacco. - Ebola Screening: : Patient negative for fever greater than or equal to 101.5 degrees Fahrenheit, and additional compatible Ebola Virus Disease symptoms Patient denies exposure to infectious person Patient denies travel to an Ebola-affected area in the 21 days before illness onset No symptoms or risks identified at this time. ROS: 17:30 Constitutional: Negative for fever, chills, and weight loss, Eyes: Negative for injury, pm1 pain, redness, and discharge, ENT: Negative for injury, pain, and discharge, Neck: Negative for injury, pain, and swelling. 17:30 Respiratory: Negative for shortness of breath, cough, wheezing, and pleuritic chest pain, Abdomen/GI: Negative for abdominal pain, nausea, vomiting, diarrhea, and constipation, Back: Negative for injury and pain, : Negative for injury, bleeding, discharge, and swelling, MS/Extremity: Negative for injury and deformity, Skin: Negative for injury, rash, and discoloration, Neuro: Negative for headache, weakness, numbness, tingling, and seizure. 17:30 Cardiovascular: Positive for chest pain, Negative for edema, orthopnea, palpitations, paroxysmal nocturnal dyspnea. Exam: 17:30 Constitutional: This is a well developed, well nourished patient who is awake, alert, pm1 and in no acute distress. Head/Face: Normocephalic, atraumatic. Eyes: Pupils equal round and reactive to light, extra-ocular motions intact. Lids and lashes normal. Conjunctiva and sclera are non-icteric and not injected. Cornea within normal limits. Periorbital areas with no swelling, redness, or edema. ENT: Nares patent. No nasal discharge, no septal abnormalities noted. Tympanic membranes are normal and external auditory canals are clear. Oropharynx with no redness, swelling, or masses, exudates, or evidence of obstruction, uvula midline. Mucous membranes moist. Neck: Trachea midline, no thyromegaly or masses palpated, and no cervical lymphadenopathy. Supple, full range of motion without nuchal rigidity, or vertebral point tenderness. No Meningismus. Cardiovascular: Regular rate and rhythm with a normal S1 and S2. No gallops, murmurs, or rubs. Normal PMI, no JVD. No pulse deficits. Respiratory: Lungs have equal breath sounds bilaterally, clear to auscultation and percussion. No rales, rhonchi or wheezes noted. No increased work of breathing, no retractions or nasal flaring. Abdomen/GI: Soft, non-tender, with normal bowel sounds. No distension or tympany. No guarding or rebound. No evidence of tenderness throughout. 17:30 Back: No spinal tenderness. No costovertebral tenderness. Full range of motion. Skin: Warm, dry with normal turgor. Normal color with no rashes, no lesions, and no evidence of cellulitis. MS/ Extremity: Pulses equal, no cyanosis. Neurovascular intact. Full, normal range of motion. 17:30 Chest/axilla: Inspection: normal, Palpation: crepitus, is not appreciated, tenderness, that is moderate, of the anterior aspect of left upper chest, that totally reproduces the patient's complaints, reproduced with deep breathing and movement of left arm. 17:30 Neuro: Orientation: is normal, Motor: is normal, moves all fours. Vital Signs: 16:57 BP 149 / 89; Pulse 108; Resp 21; Temp 97; Pulse Ox 100% ; Weight 90.72 kg; bp 17:53 BP 134 / 116; Pulse 105; Resp 13; Pulse Ox 98% ; bp 18:55 BP 128 / 104; Pulse 108; Resp 20; Pulse Ox 98% ; bp 19:10 BP 130 / 82; Pulse 105; Resp 20; Pulse Ox 96% on R/A; Pain 0/10; ca1 19:47 BP 142 / 80; Pulse 104; Resp 18; Pulse Ox 99% on R/A; ca1 MDM: 16:55 Patient medically screened. pm1 19:50 Refusal of service: The patient/guardian displays adequate decision making capability pm1 and despite a detailed discussion of alternatives, benefits, risks, and consequences refuses: Admission to the hospital for further work-up and treatment, repeat troponin. Patient's pain resolved and she wants to go home. Patient present with family and they are present in the room with her decision. 19:52 Data reviewed: vital signs. Data interpreted: Pulse oximetry: on room air is 99 %. pm1 Interpretation: normal. Counseling: I had a detailed discussion with the patient and/or guardian regarding: the historical points, exam findings, and any diagnostic results supporting the discharge/admit diagnosis, lab results, radiology results, the need for outpatient follow up, to return to the emergency department if symptoms worsen or persist or if there are any questions or concerns that arise at home. 11/11 17:01 Order name: Basic Metabolic Panel; Complete Time: 17:50 pm1 11/11 17:01 Order name: CBC with Diff; Complete Time: 17:34 pm1 11/11 17:01 Order name: LFT's; Complete Time: 17:50 pm1 11/11 17:01 Order name: Magnesium; Complete Time: 17:50 pm1 11/11 17:01 Order name: NT PRO-BNP; Complete Time: 17:50 pm1 11/11 17:01 Order name: PT-INR; Complete Time: 17:50 pm1 11/11 17:01 Order name: Troponin (emerg Dept Use Only); Complete Time: 17:50 pm1 11/11 17:01 Order name: XRAY Chest (1 view); Complete Time: 17:34 pm1 11/11 17:01 Order name: EKG; Complete Time: 17:02 pm1 11/11 17:01 Order name: Cardiac monitoring; Complete Time: 17:51 pm1 11/11 17:01 Order name: EKG - Nurse/Tech; Complete Time: 17:51 pm1 11/11 17:01 Order name: IV Saline Lock; Complete Time: 17:51 pm1 11/11 17:01 Order name: Labs collected and sent; Complete Time: 17:52 pm1 11/11 17:01 Order name: O2 Per Protocol; Complete Time: 17:52 pm1 11/11 17:01 Order name: O2 Sat Monitoring; Complete Time: 17:52 pm1 Administered Medications: 17:20 Drug: morphine 4 mg Route: IVP; Site: left antecubital; bp 17:52 Follow up: Response: No adverse reaction; Pain is decreased bp 17:20 Drug: Zofran 4 mg Route: IVP; Site: left antecubital; bp 17:52 Follow up: Response: Pain is decreased bp 18:00 Drug: Magnesium Sulfate 1 grams Route: IVPB; Infused Over: 1 hrs; Site: left bp antecubital; 19:30 Follow up: Response: No adverse reaction; IV Status: Completed infusion ca1 18:00 Drug: Potassium Chloride 40 mEq Route: PO; bp 19:30 Follow up: Response: No adverse reaction ca1 Disposition: 11/11/18 19:53 Discharged to Home. Impression: Chest pain, unspecified. - Condition is Stable. - Discharge Instructions: Nonspecific Chest Pain. - Medication Reconciliation Form, Thank You Letter form. - Follow up: Emergency Department; When: As needed; Reason: Worsening of condition. Follow up: Private Physician; When: 2 - 3 days; Reason: Recheck today's complaints, Continuance of care, Re-evaluation by your physician. - Problem is new. - Symptoms have improved. Addendum: 11/13/2018 15:34 Co-signature as Attending Physician, Vale Navarro MD. m a2 Signatures: Dispatcher [employer] EDMS Ino Chaparro, DEANDRE DECKHAND CRAB BOAT pm1 Joe Soliman, RN RN Vale Hernandez MD MD ma2 Kassi Silva RN RN ca1 Corrections: (The following items were deleted from the chart) 11/11 20:06 19:53 11/11/2018 19:53 Discharged to Home. Impression: Chest pain, unspecified. ca1 Condition is Stable. Forms are Medication Reconciliation Form, Thank You Letter, Antibiotic Education, Prescription Opioid Use. Follow up: Emergency Department; When: As needed; Reason: Worsening of condition. Follow up: Private Physician; When: 2 - 3 days; Reason: Recheck today's complaints, Continuance of care, Re-evaluation by your physician. Problem is new. Symptoms have improved. pm1
--- NOTE | 2018-11-11 19:54 | ER ---
Nurse's Notes [facility] Name: Mary Jane Jacobsen Age: 53 yrs Sex: Female : 1965 Arrival Date: 11/11/2018 Time: 16:49 Bed 8 Private MD: Diagnosis: Chest pain, unspecified Presentation: 11/11 16:50 Presenting complaint: EMS states: LEFT SIDED CP RADIATING TO THE BACK. Transition of bp care: [facility]. Onset of symptoms was November 11, 2018 at 14:30. Risk Assessment: Do you want to hurt yourself or someone else? Patient reports no desire to harm self or others. Initial Sepsis Screen: Does the patient meet any 2 criteria? HR > 90 bpm. No. Patient's initial sepsis screen is negative. Does the patient have a suspected source of infection? No. Patient's initial sepsis screen is negative. Care prior to arrival: Medication(s) given: ASA, 81 mg, x 4, Nitroglycerin, 0.4 mg SL x 1, IV initiated. 20 GA, in the left antecubital area, Glucose check: 142. 16:50 Method Of Arrival: EMS: [facility] bp 16:50 Acuity: MILLY 2 bp Triage Assessment: 16:57 General: Appears in no apparent distress. comfortable, Behavior is cooperative, bp appropriate for age, anxious. Pain: Complains of pain in chest Pain radiates to back. EENT: No deficits noted. Neuro: Level of Consciousness is awake, alert, obeys commands, Oriented to person, place, time, situation, Appropriate for age. Cardiovascular: Rhythm is sinus tachycardia. Respiratory: Airway is patent Respiratory effort is even, unlabored, Respiratory pattern is regular, symmetrical. GI: No signs and/or symptoms were reported involving the gastrointestinal system. : No signs and/or symptoms were reported regarding the genitourinary system. Derm: No deficits noted. Musculoskeletal: Circulation, motion, and sensation intact. Range of motion: intact in all extremities. 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 DEVELOPMENT CONSULTANT: 16:57 LMP N/A - Hysterectomy bp Historical: - Allergies: 16:57 NKDA; bp - Home Meds: 16:57 glimepiride 5 MG Oral tab 1 tab twice a day [Active]; lisinopril-hydrochlorothiazide bp 20-12.5 mg Oral tab 1 tab once daily [Active]; metformin 1,000 mg Oral tab 1 tab daily [Active]; atorvastatin 20 mg oral tab 1 tab once daily [Active]; amitriptyline 50 mg Oral tab 2 tabs once daily [Active]; benztropine 2 mg Oral tab 1 tab 2 times per day [Active]; propranolol 40 mg Oral tab 1 tab 2 times per day [Active]; Risperdal 4 mg Oral tab 2 tabs 2 times per day [Active]; Tegretol 200 mg Oral tab 3 tabs nightly [Active]; fenofibrate nanocrystallized 145 mg oral tab 1 tab once daily [Active]; - PMHx: 16:57 Bipolar disorder; Diabetes - NIDDM; High Cholesterol; Hypertension; Schizophrenia; bp Seizures; - Immunization history:: Adult Immunizations up to date. - Social history:: Smoking status: Patient/guardian denies using tobacco. - Ebola Screening: : Patient negative for fever greater than or equal to 101.5 degrees Fahrenheit, and additional compatible Ebola Virus Disease symptoms Patient denies exposure to infectious person Patient denies travel to an Ebola-affected area in the 21 days before illness onset No symptoms or risks identified at this time. Screenin:02 Abuse screen: Denies threats or abuse. Denies injuries from another. Nutritional bp screening: No deficits noted. Tuberculosis screening: No symptoms or risk factors identified. Fall Risk None identified. Assessment: 17:00 General: SEE TRIAGE NOTE. Pain: Pain began THIS AM. bp 18:56 Reassessment: ALL CURRENT ORDERS COMPLETED, DISPO PENDING. bp 19:10 Reassessment: Patient appears in no apparent distress at this time. Patient and/or ca1 family updated on plan of care and expected duration. Pain level reassessed. Patient is alert, oriented x 3, equal unlabored respirations, skin warm/dry/pink. Pain: Denies pain. 19:50 Reassessment: Discussed importance of repeat Troponin to patient. Refused repeat ca1 Troponin test and requested to go home. . 19:55 Reassessment: Patient appears in no apparent distress at this time. Patient and/or ca1 family updated on plan of care and expected duration. Pain level reassessed. Patient is alert, oriented x 3, equal unlabored respirations, skin warm/dry/pink. Pain: Denies pain. Vital Signs: 16:57 BP 149 / 89; Pulse 108; Resp 21; Temp 97; Pulse Ox 100% ; Weight 90.72 kg; bp 17:53 BP 134 / 116; Pulse 105; Resp 13; Pulse Ox 98% ; bp 18:55 BP 128 / 104; Pulse 108; Resp 20; Pulse Ox 98% ; bp 19:10 BP 130 / 82; Pulse 105; Resp 20; Pulse Ox 96% on R/A; Pain 0/10; ca1 19:47 BP 142 / 80; Pulse 104; Resp 18; Pulse Ox 99% on R/A; ca1 ED Course: 16:49 Patient arrived in ED. bp 16:51 Triage completed. bp 16:53 Ino Chaparro, FEEDER CATCHER is PHCP. pm1 16:53 Vale Navarro MD is Attending Physician. pm1 16:57 Arm band placed on. bp 16:59 EKG done, by interventional technologist. reviewed by Ino Chaparro NP. sm3 17:02 Maintain EMS IV. Dressing intact. Good blood return noted. Site clean \T\ dry. 20 GAUGE bp LEFT AC. Patient maintains SpO2 saturation greater than 95% on room air. 17:02 Patient has correct armband on for positive identification. Placed in gown. Call light bp in reach. monitor tech on. Pulse ox on. NIBP on. 17:07 Joe Soliman, RN is Primary Nurse. bp 17:18 XRAY Chest (1 view) In Process Unspecified. EDMS 20:01 No provider procedures requiring assistance completed. IV discontinued, intact, jd3 bleeding controlled, No redness/swelling at site. Pressure dressing applied. Administered Medications: 17:20 Drug: morphine 4 mg Route: IVP; Site: left antecubital; bp 17:52 Follow up: Response: No adverse reaction; Pain is decreased bp 17:20 Drug: Zofran 4 mg Route: IVP; Site: left antecubital; bp 17:52 Follow up: Response: Pain is decreased bp 18:00 Drug: Magnesium Sulfate 1 grams Route: IVPB; Infused Over: 1 hrs; Site: left bp antecubital; 19:30 Follow up: Response: No adverse reaction; IV Status: Completed infusion ca1 18:00 Drug: Potassium Chloride 40 mEq Route: PO; bp 19:30 Follow up: Response: No adverse reaction ca1 Outcome: 19:53 Discharge ordered by . pm1 20:01 Discharged to home ambulatory, with family. jd3 20:01 Condition: stable 20:01 Discharge instructions given to patient, family, Instructed on discharge instructions, follow up and referral plans. Demonstrated understanding of instructions, follow-up care. 20:06 Patient left the ED. ca1 Signatures: Dispatcher [employer] EDMS Ino Chaparro NP FEEDER CATCHER pm1 Addison Ga RN RN jd3 Joe Soliman RN RN Ashlee Hart sm3 Kassi Silva RN RN ca1
[2018-11-11 21:02] VITALS: TEMP 97
[2018-11-11 21:07] VITALS: BP 142/80; O2SAT 99
--- NOTE | 2018-11-12 06:54 | EKG ---
Test Date: 2018-11-11 Test Time: 16:54:19 Spot Billing Clerk: BI MEASUREMENT RESULTS: Intervals: Rate: 108 NV: 170 QRSD: 96 QT: 358 QTc: 479 [place]: P: 56 NV: 170 QRS: -52 T: 53 INTERPRETIVE STATEMENTS: Sinus tachycardia Left anterior fascicular block Minimal voltage criteria for LVH, may be normal variant Anterior infarct, age undetermined Abnormal ECG Compared to ECG 03/29/2016 05:42:00 Left anterior fascicular block now present Myocardial infarct finding now present Sinus rhythm no longer present Left-axis deviation no longer present Electronically Signed On 11-12-18 06:53:35 DRAMATIC ART TEACHER by Silver Massey
== END 2018-11-11 20:06 | disposition home or self-care (01) ==
LOC: ER 16:37
DX: R07.9 Chest pain, unspecified (principal); I44.4 Left anterior fascicular block; R00.0 Tachycardia, unspecified; R94.31 Abnormal electrocardiogram [ECG] [EKG]; E11.9 Type 2 diabetes mellitus without complications; E78.00 Pure hypercholesterolemia, unspecified; I10 Essential (primary) hypertension; F20.9 Schizophrenia, unspecified; F31.9 Bipolar disorder, unspecified; Z79.84 Long term (current) use of oral hypoglycemic drugs; Z79.899 Other long term (current) drug therapy
CPT/HCPCS: 36415; 71045; 80048; 80076; 83735; 83880; 84484; 85025; 85610; 93005; 96365; 96375; 99285; J2405; J3475

== ENCOUNTER 2019-12-11 11:40 | Emergency (ER) | payer OTHER ==
--- OUTSIDE RECORDS SUMMARY | 2019-12-11 11:42 | XMS REPORT ---
:1965 Author Organization [facility] Address [address] [place] [address] [address] [place] [address] Care Team Providers Name Role Phone Unavailable Unavailable Unavailable Problems This patient has no known problems. Allergies, Adverse Reactions, Alerts This patient has no known allergies or adverse reactions. Medications This patient has no known medications.
[2019-12-11] MEDS ORDERED: NA CHLORIDE 0.9% 1,000 ML ONE (12:43)
[2019-12-11 12:46] LABS: Absolute Lymphocytes (CBC) 0.7 K/uL (0.7-4.9); Basophils % 0.3 % (0-1.3); Hematocrit 37.5 % (36.0-45.0); Lymphocytes % 11.8 % (15.3-44.8); RBC Red Blood Cell Count 4.46 M/uL (3.86-4.86)
[2019-12-11 13:03] LABS: Albumin 4.2 g/dL (3.4-5.0); Bilirubin Direct 0.1 mg/dL (0-0.2); Bilirubin Total 0.3 mg/dL (0.2-1.0); Potassium 3.6 mmol/L (3.5-5.1); Protein, Total 8.3 g/dL (6.4-8.2)
--- NOTE | 2019-12-11 14:27 | EDPHYS ---
Physician Documentation [facility] Name: Mary Jane Jacobsen Age: 54 yrs Sex: Female : 1965 Arrival Date: 12/11/2019 Time: 11:42 Bed 25 Private MD: out of town, doctor ED Physician Roly Car HPI: 12/11 12:17 This 54 yrs old Female presents to ER via Ambulatory with complaints of Fever, pm1 Chills, Diarrhea. 12:17 The patient presents to the emergency department with diarrhea, 3 times since the onset pm1 of symptoms. Onset: The symptoms/episode began/occurred last night. Possible causes: unknown, she thinks it might be the flu. The symptoms are aggravated by nothing. The symptoms are alleviated by nothing. Associated signs and symptoms: Pertinent positives: subjective fever, chills and bodyaches, Pertinent negatives: abdominal pain, nausea, vomiting, cough. It is unknown whether or not the patient has recently seen a physician. Patient presents to the ER with complaints of diarrhea (3 episodes since last night), body aches, subjective fever and chills. Patient is concerned that she might have the flu. No cough, SOB, chest pain, runny nose, sore throat, or earache present. Historical: - Allergies: 11:59 NKDA; aj1 - Home Meds: 11:59 amitriptyline 50 mg Oral tab 2 tabs once daily [Active]; atorvastatin 20 mg Oral tab 1 aj1 tab once daily [Active]; benztropine 2 mg Oral tab 1 tab 2 times per day [Active]; fenofibrate nanocrystallized 145 mg Oral tab 1 tab once daily [Active]; glimepiride 5 MG Oral tab 1 tab twice a day [Active]; lisinopril-hydrochlorothiazide 20-12.5 mg Oral tab 1 tab once daily [Active]; metformin 1,000 mg Oral tab 1 tab daily [Active]; propranolol 40 mg Oral tab 1 tab 2 times per day [Active]; Risperdal 4 mg Oral tab 2 tabs 2 times per day [Active]; Tegretol 200 mg Oral tab 3 tabs nightly [Active]; - PMHx: 11:59 Bipolar disorder; Diabetes - NIDDM; High Cholesterol; Hypertension; Schizophrenia; aj1 Seizures; - Immunization history:: Flu vaccine is up to date. - Coronavirus screen:: The patient has NOT traveled to [place], [place], or [place] in the past 14 days. - Social history:: Smoking status: Patient/guardian denies using tobacco. - Ebola Screening: : Patient denies travel to an Ebola-affected area in the 21 days before illness onset. ROS: 12:17 Eyes: Negative for injury, pain, redness, and discharge, ENT: Negative for injury, pm1 pain, and discharge, Neck: Negative for injury, pain, and swelling, Cardiovascular: Negative for chest pain, palpitations, and edema, Respiratory: Negative for shortness of breath, cough, wheezing, and pleuritic chest pain. 12:17 Back: Negative for injury and pain, : Negative for injury, bleeding, discharge, and swelling, MS/Extremity: Negative for injury and deformity, Skin: Negative for injury, rash, and discoloration, Neuro: Negative for headache, weakness, numbness, tingling, and seizure. 12:17 Constitutional: Positive for body aches, chills, fever. 12:17 Abdomen/GI: Positive for vomiting, Negative for abdominal pain, nausea and vomiting, constipation. Exam: 12:17 Constitutional: This is a well developed, well nourished patient who is awake, alert, pm1 and in no acute distress. Head/Face: Normocephalic, atraumatic. Neck: Trachea midline, no thyromegaly or masses palpated, and no cervical lymphadenopathy. Supple, full range of motion without nuchal rigidity, or vertebral point tenderness. No Meningismus. Chest/axilla: Normal chest wall appearance and motion. Nontender with no deformity. No lesions are appreciated. Cardiovascular: Regular rate and rhythm with a normal S1 and S2. No gallops, murmurs, or rubs. Normal PMI, no JVD. No pulse deficits. Respiratory: Lungs have equal breath sounds bilaterally, clear to auscultation and percussion. No rales, rhonchi or wheezes noted. No increased work of breathing, no retractions or nasal flaring. 12:17 Back: No spinal tenderness. No costovertebral tenderness. Full range of motion. Skin: Warm, dry with normal turgor. Normal color with no rashes, no lesions, and no evidence of cellulitis. MS/ Extremity: Pulses equal, no cyanosis. Neurovascular intact. Full, normal range of motion. 12:17 Abdomen/GI: Inspection: abdomen appears normal, Bowel sounds: normal, Palpation: abdomen is soft and non-tender, in all quadrants, mass, is not appreciated, rebound tenderness, is not appreciated. 12:17 Neuro: Orientation: is normal, Motor: is normal, moves all fours. Vital Signs: 11:59 BP 138 / 83; Pulse 121; Resp 18; Temp 98.5; Pulse Ox 97% on R/A; Weight 92.99 kg (R); aj1 Height 5 ft. 5 in. (165.10 cm) (R); Pain 0/10; 13:26 BP 110 / 74; Pulse 110; Resp 18; Pulse Ox 100% on R/A; aj1 14:21 BP 128 / 59; Pulse 111; Resp 18; Pulse Ox 99% on R/A; aj1 11:59 Body Mass Index 34.11 (92.99 kg, 165.10 cm) aj1 MDM: 12:11 Patient medically screened. pm1 14:19 Data reviewed: vital signs. Data interpreted: Pulse oximetry: on room air is 100 %. pm1 Interpretation: normal. Counseling: I had a detailed discussion with the patient and/or guardian regarding: the historical points, exam findings, and any diagnostic results supporting the discharge/admit diagnosis, lab results, radiology results, the need for outpatient follow up, for definitive care, a urologist, to return to the emergency department if symptoms worsen or persist or if there are any questions or concerns that arise at home. 12/11 12:16 Order name: Basic Metabolic Panel; Complete Time: 14:19 pm12/11 12:16 Order name: CBC with Diff; Complete Time: 14:19 pm12/11 12:16 Order name: Hepatic Function; Complete Time: 14:19 pm12/11 12:16 Order name: Flu; Complete Time: 14:19 pm12/11 12:16 Order name: IV Saline Lock; Complete Time: 12:43 pm12/11 12:16 Order name: Labs collected and sent; Complete Time: 12:43 pm1 Administered Medications: 12:42 Drug: NS 0.9% 1000 ml Route: IV; Rate: 1000 ml; Site: right antecubital; mg2 14:43 Follow up: IV Status: Completed infusion; IV Intake: 1000ml aj1 14:24 CANCELLED (Physician Discretion): Flomax 0.4 mg PO once aj1 14:40 CANCELLED (Physician Discretion): NS 0.9% 1000 ml IV at 1000 ml once aj1 Disposition: 21:28 Co-signature as Attending Physician, Roly Car MD I agree with the assessment and kdr plan of care. Disposition: 12/11/19 14:27 Discharged to Home. Impression: Diarrhea, unspecified. - Condition is Stable. - Discharge Instructions: Food Choices to Help Relieve Diarrhea, Adult, Diarrhea, Adult, Viral Gastroenteritis, Adult. - Work release form, Medication Reconciliation Form, Thank You Letter, Antibiotic Education, Prescription Opioid Use form. - Follow up: Emergency Department; When: As needed; Reason: Worsening of condition. Follow up: Private Physician; When: 2 - 3 days; Reason: Recheck today's complaints, Continuance of care, Re-evaluation by your physician. - Problem is new. - Symptoms have improved. Signatures: Dispatcher [employer] EDNY Clare Khoury RN RN aj1 Roly Car MD MD kdr Ino Chaparro, MALT HOUSE OPERATOR MALT HOUSE OPERATOR pm1 Clifton Boykin RN RN mg2 Corrections: (The following items were deleted from the chart) 14:24 14:21 Flomax 0.4 mg PO once ordered. pm1 aj 14:24 14:22 Urine Dipstick-Ancillary ordered. pm1 aj 14:25 14:23 Urine Microscopic Only ordered. EDNY EDNY 14:40 14:22 NS 0.9% 1000 ml IV at 1000 ml once ordered. pm1 aj 14:43 14:27 12/11/2019 14:27 Discharged to Home. Impression: Diarrhea, unspecified. Condition aj1 is Stable. Forms are Medication Reconciliation Form, Thank You Letter, Antibiotic Education, Prescription Opioid Use. Follow up: Emergency Department; When: As needed; Reason: Worsening of condition. Follow up: Private Physician; When: 2 - 3 days; Reason: Recheck today's complaints, Continuance of care, Re-evaluation by your physician. Problem is new. Symptoms have improved. pm1
--- NOTE | 2019-12-11 14:27 | ER ---
Nurse's Notes [facility] Name: Mary Jane Jacobsen Age: 54 yrs Sex: Female : 1965 Arrival Date: 12/11/2019 Time: 11:42 Bed 25 Private MD: out of town, doctor Diagnosis: Diarrhea, unspecified Presentation: 12/11 11:53 Presenting complaint: Patient states: Fever, chills, bodyaches, cough, congestion, and aj1 diarrhea since last night. Denies vomiting. Denies pain. Transition of care: patient was not received from another setting of care. Onset of symptoms was November 2019. Risk Assessment: Do you want to hurt yourself or someone else? Patient reports no desire to harm self or others. Initial Sepsis Screen: Does the patient meet any 2 criteria? HR > 90 bpm. No. Patient's initial sepsis screen is negative. Does the patient have a suspected source of infection? Yes: Productive cough/pneumonia. Care prior to arrival: None. 11:53 Method Of Arrival: Ambulatory aj1 11:53 Acuity: MILLY 3 aj1 Triage Assessment: 11:59 General: Appears in no apparent distress. comfortable, Behavior is calm, cooperative, aj1 appropriate for age. Pain: Denies pain. Historical: - Allergies: 11:59 NKDA; aj1 - Home Meds: 11:59 amitriptyline 50 mg Oral tab 2 tabs once daily [Active]; atorvastatin 20 mg Oral tab 1 aj1 tab once daily [Active]; benztropine 2 mg Oral tab 1 tab 2 times per day [Active]; fenofibrate nanocrystallized 145 mg Oral tab 1 tab once daily [Active]; glimepiride 5 MG Oral tab 1 tab twice a day [Active]; lisinopril-hydrochlorothiazide 20-12.5 mg Oral tab 1 tab once daily [Active]; metformin 1,000 mg Oral tab 1 tab daily [Active]; propranolol 40 mg Oral tab 1 tab 2 times per day [Active]; Risperdal 4 mg Oral tab 2 tabs 2 times per day [Active]; Tegretol 200 mg Oral tab 3 tabs nightly [Active]; - PMHx: 11:59 Bipolar disorder; Diabetes - NIDDM; High Cholesterol; Hypertension; Schizophrenia; aj1 Seizures; - Immunization history:: Flu vaccine is up to date. - Coronavirus screen:: The patient has NOT traveled to [place], [place], or [place] in the past 14 days. - Social history:: Smoking status: Patient/guardian denies using tobacco. - Ebola Screening: : Patient denies travel to an Ebola-affected area in the 21 days before illness onset. Screenin:01 Abuse screen: Denies threats or abuse. Denies injuries from another. Nutritional aj1 screening: No deficits noted. Tuberculosis screening: No symptoms or risk factors identified. 14:42 Fall Risk None identified. aj1 Assessment: 12:01 General: Appears in no apparent distress. comfortable, Behavior is calm, cooperative, aj1 appropriate for age. Pain: Denies pain. Neuro: Level of Consciousness is awake, alert, obeys commands, Oriented to person, place, time, situation. Cardiovascular: Patient's skin is warm and dry. Respiratory: Reports cough that is hacking, persistent Airway is patent Respiratory effort is even, unlabored, Respiratory pattern is regular, symmetrical. GI: Abdomen is non-distended, Reports diarrhea. : No signs and/or symptoms were reported regarding the genitourinary system. EENT: Reports nasal congestion nasal discharge. Derm: No signs and/or symptoms reported regarding the dermatologic system. Skin is pink, warm \T\ dry. normal. Musculoskeletal: No signs and/or symptoms reported regarding the musculoskeletal system. Circulation, motion, and sensation intact. 13:25 Reassessment: Patient appears in no apparent distress at this time. Patient and/or aj1 family updated on plan of care and expected duration. Pain level reassessed. Patient is alert, oriented x 3, equal unlabored respirations, skin warm/dry/pink. Patient states that she is feeling much better now that she has had some IV fluids. 14:20 Reassessment: Patient appears in no apparent distress at this time. No changes from aj1 previously documented assessment. Patient and/or family updated on plan of care and expected duration. Pain level reassessed. Patient is alert, oriented x 3, equal unlabored respirations, skin warm/dry/pink. Vital Signs: 11:59 BP 138 / 83; Pulse 121; Resp 18; Temp 98.5; Pulse Ox 97% on R/A; Weight 92.99 kg (R); aj1 Height 5 ft. 5 in. (165.10 cm) (R); Pain 0/10; 13:26 BP 110 / 74; Pulse 110; Resp 18; Pulse Ox 100% on R/A; aj1 14:21 BP 128 / 59; Pulse 111; Resp 18; Pulse Ox 99% on R/A; aj1 11:59 Body Mass Index 34.11 (92.99 kg, 165.10 cm) aj1 ED Course: 11:42 Patient arrived in ED. ag5 11:44 out of town, doctor is Private Physician. ag5 11:54 Triage completed. aj1 11:59 Arm band placed on Patient placed in an exam room. aj1 12:01 Patient has correct armband on for positive identification. Bed in low position. Call aj1 light in reach. 12:01 No provider procedures requiring assistance completed. aj1 12:11 Ino Chaparro NP is PHCP. pm1 12:11 Roly Car MD is Attending Physician. pm1 12:16 Clare Khoury RN is Primary Nurse. aj1 12:43 Inserted saline lock: 22 gauge in right antecubital area, using aseptic technique. mg2 Blood collected. by AMARI Smyth Tech. 14:41 IV discontinued, intact, bleeding controlled, No redness/swelling at site. Pressure aj1 dressing applied. Administered Medications: 12:42 Drug: NS 0.9% 1000 ml Route: IV; Rate: 1000 ml; Site: right antecubital; mg2 14:43 Follow up: IV Status: Completed infusion; IV Intake: 1000ml aj1 14:24 CANCELLED (Physician Discretion): Flomax 0.4 mg PO once aj1 14:40 CANCELLED (Physician Discretion): NS 0.9% 1000 ml IV at 1000 ml once aj1 Intake: 14:43 IV: 1000ml; Total: 1000ml. aj1 Outcome: 14:27 Discharge ordered by . pm1 14:43 Discharged to home ambulatory. aj1 14:43 Condition: good 14:43 Discharge instructions given to patient, Instructed on discharge instructions, follow up and referral plans. Demonstrated understanding of instructions, follow-up care. 14:43 Patient left the ED. aj1 Signatures: Clare Khoury RN RN aj1 Ino Chaparro NP FIELD PIPELINES SUPERVISOR pm1 Clifton Boykin RN RN mg2 Sonal Redmond ag5 Corrections: (The following items were deleted from the chart) 12:03 11:53 Acuity: MILLY 4 aj1 aj1
[2019-12-11 14:51] VITALS: TEMP 98.5
[2019-12-11 14:52] VITALS: BP 110/74; O2SAT 100
== END 2019-12-11 14:43 | disposition home or self-care (01) ==
LOC: ER 11:40
DX: R19.7 Diarrhea, unspecified (principal); I10 Essential (primary) hypertension; E78.5 Hyperlipidemia, unspecified; E11.9 Type 2 diabetes mellitus without complications; R56.9 Unspecified convulsions
CPT/HCPCS: 96361; 85025; 80048; 36415; 80076; 87804 ×2; 96360; 99283; J7030

== ENCOUNTER 2020-09-16 14:19 | Emergency (ER) | payer OTHER ==
--- OUTSIDE RECORDS SUMMARY | 2020-09-16 14:21 | XMS REPORT | Continuity of Care Document ---
:1965 Author Organization [facility] t Address [address] [place] [address] Care Team Providers Name Role Phone Sharpaleida Primary Care Physician Problems Condition Condition Condition Status Onset Resolution Last Treating Co mments Source Name Details Category Date Date Treatment Clinician Date Hypokalemi Hypokalemi Disease Active [facility] - [facility]: [facility] 00 [place] Hypomagnes Hypomagnes Disease Active [facility] emia emia 05-10 [facility]: Medical 00 [place] Essential Essential Disease Active [facility] hypertensi hypertensi 6-23 [facility] - on on 00:00: Medical 00 [place] Metabolic Metabolic Disease Active [facility] syndrome syndrome 05-08 [facility] - [facility]: Medical 00 [place] DM DM Disease Active [facility] ketoacidos ketoacidos 05-08 [facility] - is type is type 00:00: Medical II, II, 00 Center uncontroll uncontroll ed ed Bipolar Bipolar Disease Active [facility] affective affective 6- [facility] - disorder disorder 00:00: Medica l in in 00 Center remission remission DKA DKA Disease Active [facility] (diabetic (diabetic - [facility] - ketoacidos ketoacidos 00:00: Me dical es) es) 00 Center Allergies, Adverse Reactions, Alerts This patient has no known allergies or adverse reactions. Social History Social Habit Start Date Stop Date Quantity Comments Source Sex Assigned At [facility] Smoking Status Start Date Stop Date Source Never smoker [facility] Medications Ordered Filled Start Stop Current Ordering Indication Dosage Frequency Signature Comments Components Source Medication Medication Date Date Medication? Clinician (SIG) Name Name risperiDONE 2015-0 Yes 4mg Q.5D Take [address] (RISPERDAL) 6-26 by mouth 2 [facility] - 4 MG tablet 13:28: (two) Medic al 33 times Center daily. insulin Yes To use [address] [facility] syringe-nee 6-24 day. [facility] - dle U-100 1 00:00: Medica l mL 31 x 00 Center 03/31" Syrg Immunizations Ordered Immunization Filled Immunization Date Status Commen ts Source Name Name Influenza Three-TIV 2016-05-09 [facility] 5[facility] Procedures This patient has no known procedures. Results This patient has no known results.
--- OUTSIDE RECORDS SUMMARY | 2020-09-16 14:21 | XMS REPORT | Clinical Summary ---
:1965 Author Organization [facility] Address [address] [place] [address] Care Team Providers Name Role Phone Magaly [...] 05/08/2016 DKA (diabetic ketoacidoses) 05/07/2016 Immunizations Name Administration Dates Next Due Influenza Three-TIV PF 5+ YRS 05/09/2016 Social History Tobacco Use Types Packs/Day Years Used Date Never Smoker Sex Assigned at Date Recorded Not on file Last Filed Vital Signs Not on file Plan of Treatment Not on file Results Not on fileafter 09/16/2019 Advance Directives For more information, please contact: [phone] Code Status Date Activated Date Inactivated Comments Full Code 05/07/2016 3:14 PM 05/11/2016 3:28 PM This code status was determined by: Patient
--- NOTE | 2020-09-16 15:21 | RAD REPORT ---
EXAM DESCRIPTION: RAD - Chest Single View - 09/16/2020 3:07 pm CLINICAL HISTORY: COUGH COMPARISON: Portable October 2018 TECHNIQUE: AP portable chest image was obtained 09/16/2020 3:07 pm . FINDINGS: Lungs are clear. Heart and vasculature are normal. No measurable pleural effusion and no p neumothorax. No acute bony abnormality seen. No acute aortic findings suspected. IMPRESSION: No acute cardiopulmonary process. No suspicious change from comparison
--- NOTE | 2020-09-16 16:04 | ER ---
Nurse's Notes [facility] Name: Mary Jane Jacobsen Age: 55 yrs Sex: Female : 1965 Arrival Date: 09/16/2020 Time: 14:21 Bed 15 Private MD: Diagnosis: Streptococcal pharyngitis Presentation: 09/16 14:30 Chief complaint: Patient states: Severe cough x 2 mos. Seen several doctors and ca1 prescribed cough syrup with no relief. Cough is productive has been worse for the past month. Reports loss of voice and sore throat. Denies fever. Denies Nasal congestion. Coronavirus screen: Client denies travel out of the [place] in the last 14 days. cough unrelated to allergies, Client presents with at least one sign or symptom that may indicate coronavirus-19. Standard/surgical mask placed on the client. Provider contacted for isolation considerations. The client denies any previous COVID testing. Ebola Screen: Patient negative for fever greater than or equal to 101.5 degrees Fahrenheit, and additional compatible Ebola Virus Disease symptoms Patient denies exposure to infectious person. Patient denies travel to an Ebola-affected area in the 21 days before illness onset. No symptoms or risks identified at this time. Initial Sepsis Screen: Does the patient meet any 2 criteria? No. Patient's initial sepsis screen is negative. Does the patient have a suspected source of infection? No. Patient's initial sepsis screen is negative. Risk Assessment: Do you want to hurt yourself or someone else? Patient reports no desire to harm self or others. Onset of symptoms was September 16, 2020. 14:30 Method Of Arrival: Ambulatory ca1 14:30 Acuity: MILLY 3 ca1 Triage Assessment: 14:52 General: Appears in no apparent distress. comfortable, Behavior is calm, cooperative, ca1 appropriate for age. Pain: Denies pain. EENT: Throat is clear. Neuro: Level of Consciousness is awake, alert, obeys commands, Oriented to person, place, time, situation. Cardiovascular: Heart tones S1 S2 present Capillary refill < 3 seconds Patient's skin is warm and dry. Respiratory: Airway is patent Respiratory effort is even, unlabored, Respiratory pattern is regular, symmetrical, Breath sounds are clear bilaterally. Respiratory: Reports cough that is productive, since 2 months. GI: Abdomen is round non-distended, Bowel sounds present X 4 quads. Abd is soft and non tender X 4 quads. : No signs and/or symptoms were reported regarding the genitourinary system. Derm: Skin is intact, is healthy with good turgor, Skin is pink, warm \T\ dry. Musculoskeletal: Circulation, motion, and sensation intact. Capillary refill < 3 seconds. Historical: - Allergies: 14:52 NKDA; ca1 - Home Meds: 14:52 amitriptyline 50 mg Oral tab 2 tabs once daily [Active]; rosuvastatin 40 mg oral tab 1 ca1 tab once daily [Active]; metformin 1,000 mg Oral tab 1 tab daily [Active]; glipizide 5 mg Oral tab 1 tab 2 times per day [Active]; benztropine 2 mg Oral tab 1 tab 2 times per day [Active]; propranolol 40 mg Oral tab 1 tab 2 times per day [Active]; Tegretol 200 mg Oral tab 3 tabs nightly [Active]; Risperdal 4 mg Oral tab 2 tabs 2 times per day [Active]; losartan 100 mg oral tab 1 tab once daily [Active]; fluconazole 150 mg Oral tab 1 tab every 72 hrs [Active]; mupirocin 2 % topical oint 3 times per day [Active]; estrogen complete menopause Relief 4mg daily [Active]; loratadine 10 mg oral tab 1 tab once daily [Active]; - PMHx: 14:52 Bipolar disorder; Diabetes - NIDDM; High Cholesterol; Hypertension; Schizophrenia; ca1 Seizures; - Immunization history:: Adult Immunizations up to date, Flu vaccine is up to date. - Social history:: Smoking status: Patient denies any tobacco usage or history of. Screenin:54 Abuse screen: Denies threats or abuse. Denies injuries from another. Nutritional ca1 screening: No deficits noted. Tuberculosis screening: No symptoms or risk factors identified. Fall Risk None identified. Assessment: 14:54 Reassessment: see triage notes. ca1 15:55 Reassessment: Patient appears in no apparent distress at this time. Patient and/or ca1 family updated on plan of care and expected duration. Pain level reassessed. Patient is alert, oriented x 3, equal unlabored respirations, skin warm/dry/pink. Vital Signs: 14:30 BP 161 / 96; Pulse 105; Resp 18 S; Temp 99(O); Pulse Ox 100% on R/A; Weight 90.72 kg ca1 (R); Height 5 ft. 5 in. (165.10 cm) (R); Pain 0/10; 15:55 BP 160 / 92; Pulse 107; Resp 16 S; Pulse Ox 100% on R/A; ca1 14:30 Body Mass Index 33.28 (90.72 kg, 165.10 cm) ca1 ED Course: 14:21 Patient arrived in ED. as 14:27 Ino Chaparro NP is PHCP. pm1 14:27 Roly Car MD is Attending Physician. pm1 14:29 Kassi Silva RN is Primary Nurse. ca1 14:47 Triage completed. ca1 14:52 Arm band placed on right wrist. ca1 14:54 Patient has correct armband on for positive identification. Placed in gown. Bed in low ca1 position. Call light in reach. Side rails up X2. Pulse ox on. NIBP on. Warm blanket given. 15:07 Chest Single View XRAY In Process Unspecified. EDMS 15:12 COVID-19 Sent. [facility] 15:12 Flu Sent. 4 15:12 Strep Sent. dh4 16:30 No provider procedures requiring assistance completed. Patient did not have IV access ca1 during this emergency room visit. Administered Medications: No medications were administered Outcome: 16:04 Discharge ordered by . pm1 16:30 Discharged to home ambulatory, with family. ca1 16:30 Condition: stable 16:30 Discharge instructions given to patient, Instructed on discharge instructions, follow up and referral plans. medication usage, Demonstrated understanding of instructions, follow-up care, medications, Prescriptions given X 1. 16:31 Patient left the ED. ca1 Addendum: 09/18/2020 17:38 Addendum: COVID-19 Result: Negative result given to RN to notify pt. Attempted to a a5 contact pt regarding negative COVID-19 swab results. Other: Pt's phone number not working, called pt's daughter and left voice mail for pt to call back. Signatures: Dispatcher [employer] EDMS Elana Ivan Audri RN RN aa5 Ino Chaparro NP [employer]EWAL MANAGER pm1 Kassi Silva RN RN [facility] Brandon Tolbert [facility]
--- NOTE | 2020-09-16 16:04 | EDPHYS ---
Physician Documentation [facility] Name: Mary Jane Jacobsen Age: 55 yrs Sex: Female : 1965 Arrival Date: 09/16/2020 Time: 14:21 Bed 15 Private MD: ED Physician Roly Car HPI: 09/16 14:35 This 55 yrs old Female presents to ER via Ambulatory with complaints of Cough, pm1 Chest Congestion. 14:35 The patient or guardian reports cough, with productive sputum, that is yellow. Onset: pm1 The symptoms/episode began/occurred 2 month(s) ago. Severity of symptoms: in the emergency department the symptoms are actually worse, past 1 month. Modifying factors: The symptoms are alleviated by nothing, the symptoms are aggravated by nothing. Associated signs and symptoms: Pertinent positives: sore throat, hoarse voice, Pertinent negatives: chest pain, ear ache, fever, shortness of breath. Patient has seen 4 doctors in the past month for the same complaint and was told that it was a cold. She presents to the ER wanting to rule out pneumonia or bronchitis. Historical: - Allergies: 14:52 NKDA; ca1 - Home Meds: 14:52 amitriptyline 50 mg Oral tab 2 tabs once daily [Active]; rosuvastatin 40 mg oral tab 1 ca1 tab once daily [Active]; metformin 1,000 mg Oral tab 1 tab daily [Active]; glipizide 5 mg Oral tab 1 tab 2 times per day [Active]; benztropine 2 mg Oral tab 1 tab 2 times per day [Active]; propranolol 40 mg Oral tab 1 tab 2 times per day [Active]; Tegretol 200 mg Oral tab 3 tabs nightly [Active]; Risperdal 4 mg Oral tab 2 tabs 2 times per day [Active]; losartan 100 mg oral tab 1 tab once daily [Active]; fluconazole 150 mg Oral tab 1 tab every 72 hrs [Active]; mupirocin 2 % topical oint 3 times per day [Active]; estrogen complete menopause Relief 4mg daily [Active]; loratadine 10 mg oral tab 1 tab once daily [Active]; - PMHx: 14:52 Bipolar disorder; Diabetes - NIDDM; High Cholesterol; Hypertension; Schizophrenia; ca1 Seizures; - Immunization history:: Adult Immunizations up to date, Flu vaccine is up to date. - Social history:: Smoking status: Patient denies any tobacco usage or history of. ROS: 14:35 Constitutional: Negative for fever, chills, and weight loss. pm1 14:35 Cardiovascular: Negative for chest pain, palpitations, and edema. 14:35 Abdomen/GI: Negative for abdominal pain, nausea, vomiting, diarrhea, and constipation, Back: Negative for injury and pain, MS/Extremity: Negative for injury and deformity, Skin: Negative for injury, rash, and discoloration. 14:35 Neuro: Negative for headache, weakness, numbness, tingling, and seizure. 14:35 ENT: Positive for hoarseness, Negative for drainage from ear(s), ear pain, difficulty swallowing, difficulty handling secretions. 14:35 Respiratory: Positive for cough, with yellow sputum, Negative for shortness of breath, wheezing. Exam: 14:35 Constitutional: This is a well developed, well nourished patient who is awake, alert, pm1 and in no acute distress. Head/Face: Normocephalic, atraumatic. 14:35 Back: No spinal tenderness. No costovertebral tenderness. Full range of motion. Skin: Warm, dry with normal turgor. Normal color with no rashes, no lesions, and no evidence of cellulitis. MS/ Extremity: Pulses equal, no cyanosis. Neurovascular intact. Full, normal range of motion. 14:35 Cardiovascular: Exam negative for acute changes, Rate: normal, Rhythm: regular, Pulses: no pulse deficits are appreciated. 14:35 Respiratory: Exam negative for acute changes, respiratory distress, shortness of breath. 14:35 Neuro: Exam negative for acute changes, Orientation: is normal, Motor: is normal, moves all fours. Vital Signs: 14:30 BP 161 / 96; Pulse 105; Resp 18 S; Temp 99(O); Pulse Ox 100% on R/A; Weight 90.72 kg ca1 (R); Height 5 ft. 5 in. (165.10 cm) (R); Pain 0/10; 15:55 BP 160 / 92; Pulse 107; Resp 16 S; Pulse Ox 100% on R/A; ca1 14:30 Body Mass Index 33.28 (90.72 kg, 165.10 cm) ca1 MDM: 14:30 Patient medically screened. pm1 16:04 Data reviewed: vital signs. Data interpreted: Pulse oximetry: on room air is 100 %. pm1 Interpretation: normal. Counseling: I had a detailed discussion with the patient and/or guardian regarding: the historical points, exam findings, and any diagnostic results supporting the discharge/admit diagnosis, lab results, the need for outpatient follow up, to return to the emergency department if symptoms worsen or persist or if there are any questions or concerns that arise at home. 09/16 14:34 Order name: COVID-19 pm1 09/16 14:34 Order name: Flu; Complete Time: 16:03 pm1 09/16 14:34 Order name: Strep; Complete Time: 16:03 pm1 09/16 14:34 Order name: Droplet/Contact Precautions; Complete Time: 14:54 pm1 09/16 14:35 Order name: Chest Single View XRAY; Complete Time: 15:34 pm1 09/16 14:34 Order name: Labs collected and sent; Complete Time: 14:54 pm1 Administered Medications: No medications were administered Disposition: 09/17 06:38 Co-signature as Attending Physician, Roly Car MD I agree with the assessment and kdr plan of care. Disposition: 09/16/20 16:04 Discharged to Home. Impression: Streptococcal pharyngitis. - Condition is Stable. - Discharge Instructions: Strep Throat. - Prescriptions for Amoxicillin 500 mg Oral Capsule - take 1 capsule by ORAL route every 8 hours for 10 days; 30 tablet. - Medication Reconciliation Form, Thank You Letter, Antibiotic Education, Prescription Opioid Use form. - Follow up: Emergency Department; When: As needed; Reason: Worsening of condition. Follow up: Private Physician; When: 2 - 3 days; Reason: Recheck today's complaints, Continuance of care, Re-evaluation by your physician. - Problem is new. - Symptoms have improved. Signatures: Dispatcher [employer] Roly Salas MD MD kdr Marinas, Patrick, NP MAIL CLERK pm1 Kassi Silva RN RN ca1 Corrections: (The following items were deleted from the chart) 09/16 14:56 14:35 Chest Pa And Lat (2 Views)+RAD.RAD.BRZ ordered. [facility] 16:31 16:04 09/16/2020 16:04 Discharged to Home. Impression: Streptococcal pharyngitis. ca1 Condition is Stable. Forms are Medication Reconciliation Form, Thank You Letter, Antibiotic Education, Prescription Opioid Use. Follow up: Emergency Department; When: As needed; Reason: Worsening of condition. Follow up: Private Physician; When: 2 - 3 days; Reason: Recheck today's complaints, Continuance of care, Re-evaluation by your physician. Problem is new. Symptoms have improved. pm1
[2020-09-16 16:53] VITALS: TEMP 99; O2SAT 100
[2020-09-16 16:54] VITALS: BP 160/92
== END 2020-09-16 16:31 | disposition home or self-care (01) ==
LOC: ER 14:19
DX: J02.0 Streptococcal pharyngitis (principal); Z20.828 Contact with and (suspected) exposure to other viral communicable diseases; I10 Essential (primary) hypertension; E11.9 Type 2 diabetes mellitus without complications; E78.00 Pure hypercholesterolemia, unspecified; F20.9 Schizophrenia, unspecified
CPT/HCPCS: 87081; 87804 ×2; 71045; 99284; U0002

== ENCOUNTER 2021-08-20 12:17 | Emergency (ER) | payer OTHER ==
--- NOTE | 2021-08-20 14:30 | RAD REPORT ---
EXAM DESCRIPTION: RAD - Chest Single View - 08/20/2021 2:05 pm CLINICAL HISTORY: COUGH COMPARISON: Portable September 2020 TECHNIQUE: AP portable chest image was obtained 08/20/2021 2:05 pm . FINDINGS: Lung volumes are low. Linear stranding in each lung base is favored to be low lung volume atelectasis rather than infiltrate. Right costophrenic angle blunting is probably from low lung volum e as well. Minimal right pleural effusion is fossa. Minimal bibasilar infiltrates cannot be excluded. No chest findings suspicious for COVID-19 infection. Heart and vasculature are normal. No measurable pleural effusion and no pneumothorax. No acute bony abnormality seen. No acute aortic findings suspected. IMPRESSION: Bibasilar linear stranding favored to be atelectasis rather than bibasilar infiltrate. Possible minimal right pleural effusion. No chest findings typical for COVID-19 infection.
--- NOTE | 2021-08-20 15:23 | EDPHYS ---
Physician Documentation [facility] Name: Mary Jane Jacobsen Age: 56 yrs Sex: Female : 1965 Arrival Date: 08/20/2021 Time: 12:20 Bed 12 Private MD: ED Physician Lyndon Causey HPI: 08/20 14:36 This 56 yrs old Female presents to ER via Ambulatory with complaints of Cough, rn breathing Difficulty. 14:37 The patient or guardian reports cough, that is intermittent, described as mild, with rn productive sputum, difficulty breathing. Onset: The symptoms/episode began/occurred 2 day(s) ago. Severity of symptoms: At their worst the symptoms were mild, in the emergency department the symptoms are unchanged. Modifying factors: The symptoms are alleviated by nothing, the symptoms are aggravated by nothing. Associated signs and symptoms: Pertinent positives: rhinorrhea, Pertinent negatives: chest pain, fever, sore throat, vomiting. The patient has not experienced similar symptoms in the past. The patient has not recently seen a physician. Patient reports cough and shortness of breath that began 2 days ago. Denies any fever. Denies any sick contacts. No chronic lung issues or recurrent pneumonia.. Historical: - Allergies: 12:23 NKDA; sv - PMHx: 12:23 Bipolar disorder; Hypertension; Schizophrenia; High Cholesterol; Diabetes - NIDDM; sv Seizures; - Immunization history:: Adult Immunizations up to date. - Social history:: Smoking status: Patient denies any tobacco usage or history of. - Family history:: not pertinent. - Hospitalizations: : No recent hospitalization is reported. ROS: 14:37 Constitutional: Negative for fever, chills, and weight loss, Eyes: Negative for injury, rn pain, redness, and discharge, Neck: Negative for injury, pain, and swelling, Cardiovascular: Negative for chest pain, palpitations, and edema, Respiratory: Positive for cough and shortness of breath Abdomen/GI: Negative for abdominal pain, nausea, vomiting, diarrhea, and constipation, Back: Negative for injury and pain, MS/Extremity: Negative for injury and deformity, Skin: Negative for injury, rash, and discoloration, Neuro: Negative for headache,numbness, tingling, and seizure. Exam: 14:37 Constitutional: This is a well developed, well nourished patient who is awake, alert, rn and in no acute distress. Frequent coughing spells Head/Face: Normocephalic, atraumatic. Eyes: Periorbital areas with no swelling, redness, or edema. ENT: Moist mucous membranes, no stridor Cardiovascular: Tachycardic, regular. No pulse deficits. Respiratory: No increased work of breathing, no retractions or nasal flaring. Skin: Warm, dry MS/ Extremity: Pulses equal, no cyanosis. Neuro: Awake and alert, GCS 15 Vital Signs: 12:23 BP 153 / 94; Pulse 110; Resp 20; Temp 97; Pulse Ox 97% on R/A; Weight 81.65 kg; Height sv 5 ft. 5 in. (165.10 cm); 15:03 BP 144 / 90; Pulse 96; Resp 19; Pulse Ox 97% on R/A; oh 12:23 Body Mass Index 29.95 (81.65 kg, 165.10 cm) sv MDM: 12:45 Patient medically screened. rn 15:21 Differential Diagnosis: Bronchitis Influenza Upper Respiratory Infection Viral Syndrome rn Pneumonia. Data reviewed: vital signs, nurses notes, lab test result(s), radiologic studies, plain films, and as a result, I will discharge patient. Data interpreted: Pulse oximetry: on room air is 97 %. Interpretation: normal. Test interpretation: by ED physician or midlevel provider: plain radiologic studies, Chest x-ray with possible interstitial infiltrate. Counseling: I had a detailed discussion with the patient and/or guardian regarding: the historical points, exam findings, and any diagnostic results supporting the discharge/admit diagnosis, lab results, radiology results, the need for outpatient follow up, to return to the emergency department if symptoms worsen or persist or if there are any questions or concerns that arise at home. Special discussion: I discussed with the patient/guardian in detail that at this point there is no indication for admission to the hospital. It is understood, however, that if the symptoms persist or worsen the patient needs to return immediately for re-evaluation. 08/20 12:49 Order name: Flu; Complete Time: 15:21 rn 08/20 12:49 Order name: XRAY Chest (1 view); Complete Time: 14:32 rn 08/20 12:49 Order name: Strep; Complete Time: 14:32 rn 08/20 14:25 Order name: Throat Culture EDMS 08/20 14:35 Order name: SARS-COV-2 RT PCR; Complete Time: 15:21 EDMS Administered Medications: No medications were administered Disposition Summary: 08/20/21 15:22 Discharge Ordered Location: Home rn Problem: new rn Symptoms: have improved rn Condition: Stable rn Diagnosis - Pneumonia, unspecified organism rn Followup: rn - With: Private Physician - When: As needed - Reason: Recheck today's complaints, Re-evaluation by your physician Discharge Instructions: - Discharge Summary Sheet rn - Community-Acquired Pneumonia, Adult rn Forms: - Medication Reconciliation Form rn - Thank You Letter rn - Antibiotic event marketing intern - Prescription Opioid Use rn Prescriptions: - Zithromax Z-Hayden 250 mg Oral Tablet - take 1 tablet by ORAL route as directed for 5 days Day 1 - take two (2) tablets rn one time. Day 2, 3, 4 , 5 take one (1) tablet once daily.; 6 tablet; Refills: 0, Product Selection Permitted Signatures: Dispatcher [employer] Laurita Rose RN RN sv Nieto, Roman, MD MD rn Harriott, Oneka, RN RN ms Corrections: (The following items were deleted from the chart) 13:28 12:49 CORONAVIRUS+MR.LAB.BRZ ordered. EDNY EDMS
--- NOTE | 2021-08-20 15:23 | ER ---
Nurse's Notes [facility] Name: Mary Jane Jacobsen Age: 56 yrs Sex: Female : 1965 Arrival Date: 08/20/2021 Time: 12:20 Bed 12 Private MD: Diagnosis: Pneumonia, unspecified organism Presentation: 08/20 12:22 Chief complaint: Patient states: SOB and productive cough x 4 days. Coronavirus screen: sv Vaccine status: Patient reports receiving the 2nd dose of the covid vaccine. Patient reports receiving the 1st dose of the Covid vaccine. Client denies travel out of the [place] in the last 14 days. Ebola Screen: No symptoms or risks identified at this time. Risk Assessment: Do you want to hurt yourself or someone else? Patient reports no desire to harm self or others. Onset of symptoms was August 16, 2021. 12:22 Method Of Arrival: Ambulatory sv 12:22 Acuity: MILLY 3 sv 12:23 Initial Sepsis Screen: Does the patient meet any 2 criteria? HR > 90 bpm. No. Patient's sv initial sepsis screen is negative. Does the patient have a suspected source of infection? No. Patient's initial sepsis screen is negative. Triage Assessment: 12:24 General: Appears in no apparent distress. comfortable, Behavior is calm, cooperative. sv Neuro: Level of Consciousness is awake, alert, obeys commands, Gait is steady. Respiratory: Respiratory effort is even, unlabored. Historical: - Allergies: 12:23 NKDA; sv - PMHx: 12:23 Bipolar disorder; Hypertension; Schizophrenia; High Cholesterol; Diabetes - NIDDM; sv Seizures; - Immunization history:: Adult Immunizations up to date. - Social history:: Smoking status: Patient denies any tobacco usage or history of. - Family history:: not pertinent. - Hospitalizations: : No recent hospitalization is reported. Screenin:31 Abuse screen: Denies threats or abuse. Abuse screen: Denies threats or abuse. oh Nutritional screening: No deficits noted. Tuberculosis screening: No symptoms or risk factors identified. Fall Risk None identified. Assessment: 12:31 Respiratory: Reports shortness of breath cough that is. oh Vital Signs: 12:23 BP 153 / 94; Pulse 110; Resp 20; Temp 97; Pulse Ox 97% on R/A; Weight 81.65 kg; Height sv 5 ft. 5 in. (165.10 cm); 15:03 BP 144 / 90; Pulse 96; Resp 19; Pulse Ox 97% on R/A; oh 12:23 Body Mass Index 29.95 (81.65 kg, 165.10 cm) sv ED Course: 12:20 Patient arrived in ED. mr 12:22 Arm band placed on. sv 12:23 Triage completed. sv 12:26 Latonya Rajput, GAVIN is Primary Nurse. oh 12:45 Lyndon Causey MD is Attending Physician. rn 12:49 Bed in low position. Call light in reach. oh 12:59 Strep Sent. oh 12:59 Flu Sent. oh 14:05 XRAY Chest (1 view) In Process Unspecified. EDMS 15:54 Patient did not have IV access during this emergency room visit. oh Administered Medications: No medications were administered Outcome: 15:22 Discharge ordered by . rn 15:54 Discharged to home oh 15:54 Condition: stable 15:54 Discharge instructions given to Prescriptions given X 15:55 Patient left the ED. oh Signatures: Dispatcher [employer] EDMS Laurita Hunter RN GAVIN leon Alissa Goins mr Lyndon Causey MD MD rn Harriott, Oneka, RN RN oh Corrections: (The following items were deleted from the chart) 12:25 12:23 Pulse 110bpm; Resp 20bpm; Pulse Ox 97% RA; Temp 97F; 81.65 kg; Height 5 ft. 5 sv in.; BMI: 29.9; sv 13:28 12:59 CORONAVIRUS+MR.LAB.BRZ drawn and sent. oh EDMS
[2021-08-20 16:06] VITALS: TEMP 97; O2SAT 97
[2021-08-20 16:07] VITALS: BP 144/90
== END 2021-08-20 15:55 | disposition home or self-care (01) ==
LOC: ER 12:17
DX: J18.9 Pneumonia, unspecified organism (principal); Z20.822 Contact with and (suspected) exposure to COVID-19; I10 Essential (primary) hypertension
CPT/HCPCS: 87070; 87081; 87804 ×2; 71045; 99283; U0003

== ENCOUNTER 2021-11-06 21:18 | Emergency (ER) | payer OTHER ==
--- OUTSIDE RECORDS SUMMARY | 2021-11-06 21:25 | XMS REPORT | Continuity of Care Document ---
:1965 Author Organization [facility] t Address [address] [place] [address] Dr. Fern[address] [place] [address] Care Team Providers Name Role Phone DAX Primary Care Physician Unavailable Radiology Attending Clinician Unavailable RADIOLOGY Attending Clinician Unavailable Doctor Unassigned, Name Attending Clinician Unavailable DAX Attending Clinician Unavailable Makayla HUMPHREY Attending Clinician MAKAYLA Attending Clinician Unavailable John OG Attending Clinician Jenny PHD, L Attending Clinician Felix Schmitt DO Attending Clinician Payers Payer Name Policy Type Policy Number Effective Date Expiration Date S ource Problems Condition Condition Condition Status Onset Resolution Last Treating Co mments Source Name Details Category Date Date Treatment Clinician Date Surgery, Surgery, Disease Active Unive rs elective elective 9-25 ity of 00:00: [address] Branch Obesity Obesity Disease Active Univers (BMI (BMI 9-21 ity of 30-39.9) 30-39.9) 00:00: [place] [address] Medical Branch Adnexal Adnexal Disease Active Overview: Univ ers mass mass 9-17 Formattin ity of 00:00: g of this note Medical might be Branch different from the original. Added automatic ally from request for surgery [id number] Type 2 Type 2 Disease Active Univers diabetes diabetes 1-08 ity of mellitus mellitus 00:00: [place] [address] Medical Branch Bipolar Bipolar Disease Active Univers affective affective 6-23 ity of disorder disorder 00:00: [place] in in 00 Medical remission remission Bran ch Essential Essential Disease Active Uni vers hypertensi hypertensi 6-23 it y of on on 00:00: [address] Depression Depression Disease Active Overview : Univers Formattin ity of g of this [place] note Medical might be Branch different from the original. denies si/hi Hyperchole Hyperchole Disease Active U nivers steremia steremia ity of [facility] Hypertensi Hypertensi Disease Active U nivers on on ity of [facility] Mental Mental Disease Active Univers disorder disorder ity of [facility] Allergies, Adverse Reactions, Alerts Allergy Allergy Status Severity Reaction(s) Onset Inactive Treating Comm ents Source Name Type Date Date Clinician NO KNOWN Drug Active Univers ALLERGIE Class ity of [facility] Social History Social Habit Start Date Stop Date Quantity Comments Source Exposure to Not sure [facility] SARS-CoV-2 [facility] (event) Branch Alcohol intake 2021-02-01 2021-02-01 Current [facility] 00:00:00 00:00:00 non-drinker of [facility] alcohol [place] (finding) Tobacco use and 2014-04-25 2014-04-25 Never used Universit y of exposure 00:00:00 00:00:00 [facility] Sex Ass[birth year] Universit y of 00:00:00 00:00:00 [facility] Smoking Status Start Date Stop Date Source Never smoker [facility] Medications Ordered Filled Start Stop Current Ordering Indication Dosage Frequency Signature Comments Components Source Medication Medication Date Date Medication? Clinician (SIG) Name Name budesonide- Yes [id number] 2{puff} Inhale 2 Univers formoteroL 6-23 Puffs 2 ity of 80-4.5 00:00: (two) [place] mcg/actuati 00 times Medical on inhaler daily. Branch fluticasone Yes [id number] 1{spray Use 1 Univers propionate 6-23 } [place] in ity o f 50 00:00: each [place] mcg/actuati 00 nostril 2 Med ical on nasal (two) Branch spray times daily. budesonide- Yes [id number] 2{puff} Inhale 2 Univers formoteroL 6-23 Puffs 2 ity of 80-4.5 00:00: (two) [place] mcg/actuati 00 times Medical on inhaler daily. Branch fluticasone Yes [id number] 1{spray Use 1 Univers propionate 6-23 } [place] in ity o f 50 00:00: each [place] mcg/actuati 00 nostril 2 Med ical on nasal (two) Branch spray times daily. budesonide- Yes [id number] 2{puff} Inhale 2 Univers formoteroL 6-23 Puffs 2 ity of 80-4.5 00:00: (two) [place] mcg/actuati 00 times Medical on inhaler daily. Branch fluticasone Yes [id number] 1{spray Use 1 Univers propionate 6-23 } [place] in ity o f 50 00:00: each [place] mcg/actuati 00 nostril 2 Med ical on nasal (two) Branch spray times daily. budesonide- Yes [id number] 2{puff} Inhale 2 Univers formoteroL 6-23 Puffs 2 ity of 80-4.5 00:00: (two) [place] mcg/actuati 00 times Medical on inhaler daily. Branch fluticasone Yes [id number] 1{spray Use 1 Univers propionate 6-23 } [place] in ity o f 50 00:00: each [place] mcg/actuati 00 nostril 2 Med ical on nasal (two) Branch spray times daily. budesonide- Yes [id number] 2{puff} Inhale 2 Univers formoteroL 6-23 Puffs 2 ity of 80-4.5 00:00: (two) [place] mcg/actuati 00 times Medical on inhaler daily. Branch fluticasone Yes [id number] 1{spray Use 1 Univers propionate 6-23 } [place] in ity o f 50 00:00: each [place] mcg/actuati 00 nostril 2 Med ical on nasal (two) Branch spray times daily. budesonide- Yes [id number] 2{puff} Inhale 2 Univers formoteroL 6-23 Puffs 2 ity of 80-4.5 00:00: (two) [place] mcg/actuati 00 times Medical on inhaler daily. Branch fluticasone 2020- Yes [id number] 1{spray Use 1 Univers propionate 6-23 } [place] in ity o f 50 00:00: each [place] mcg/actuati 00 nostril 2 Med ical on nasal (two) Branch spray times daily. budesonide- Yes [id number] 2{puff} Inhale 2 Univers formoteroL 6-23 Puffs 2 ity of 80-4.5 00:00: (two) [place] mcg/actuati 00 times Medical on inhaler daily. Branch fluticasone Yes [id number] 1{spray Use 1 Univers propionate 6-23 } [place] in ity o f 50 00:00: each [place] mcg/actuati 00 nostril 2 Med ical on nasal (two) Branch spray times daily. budesonide- Yes [id number] 2{puff} Inhale 2 Univers formoteroL 6-23 Puffs 2 ity of 80-4.5 00:00: (two) [place] mcg/actuati 00 times Medical on inhaler daily. Branch fluticasone Yes [id number] 1{spray Use 1 Univers propionate 6-23 } [place] in ity o f 50 00:00: each [place] mcg/actuati 00 nostril 2 Med ical on nasal (two) Branch spray times daily. budesonide- Yes [id number] 2{puff} Inhale 2 Univers formoteroL 6-23 Puffs 2 ity of 80-4.5 00:00: (two) [place] mcg/actuati 00 times Medical on inhaler daily. Branch fluticasone Yes [id number] 1{spray Use 1 Univers propionate 6-23 } [place] in ity o f 50 00:00: each [place] mcg/actuati 00 nostril 2 Med ical on nasal (two) Branch spray times daily. fluticasone Yes [id number] 1{spray Use 1 Univers propionate 3-19 } [place] in ity o f 50 00:00: each [place] mcg/actuati 00 nostril 2 Med ical on nasal (two) Branch spray times daily. famotidine Yes [id number] 40mg Take 1 U nivers 40 mg 3-19 tablet by ity of tablet 00:00: mouth at [place] 00 bedtime. Medical Branch budesonide- Yes [id number] 2{puff} Inhale 2 Univers formoteroL 3-19 Puffs 2 ity of 80-4.5 00:00: (two) [place] mcg/actuati 00 times Medical on inhaler daily. Branch fluticasone Yes [id number] 1{spray Use 1 Univers propionate 3-19 } [place] in ity o f 50 00:00: each [place] mcg/actuati 00 nostril 2 Med ical on nasal (two) Branch spray times daily. famotidine Yes [id number] 40mg Take 1 U nivers 40 mg 3-19 tablet by ity of tablet 00:00: mouth at [place] 00 bedtime. Medical Branch budesonide- Yes [id number] 2{puff} Inhale 2 Univers formoteroL 3-19 Puffs 2 ity of 80-4.5 00:00: (two) [place] mcg/actuati 00 times Medical on inhaler daily. Branch fluticasone Yes [id number] 1{spray Use 1 Univers propionate 3-19 } [place] in ity o f 50 00:00: each [place] mcg/actuati 00 nostril 2 Med ical on nasal (two) Branch spray times daily. famotidine Yes [id number] 40mg Take 1 U nivers 40 mg 3-19 tablet by ity of tablet 00:00: mouth at [place] 00 bedtime. Medical Branch budesonide- Yes [id number] 2{puff} Inhale 2 Univers formoteroL 3-19 Puffs 2 ity of 80-4.5 00:00: (two) [place] mcg/actuati 00 times Medical on inhaler daily. Branch fluticasone Yes [id number] 1{spray Use 1 Univers propionate 3-19 } [place] in ity o f 50 00:00: each [place] mcg/actuati 00 nostril 2 Med ical on nasal (two) Branch spray times daily. famotidine Yes [id number] 40mg Take 1 U nivers 40 mg 3-19 tablet by ity of tablet 00:00: mouth at [place] 00 bedtime. Medical Branch budesonide- Yes [id number] 2{puff} Inhale 2 Univers formoteroL 3-19 Puffs 2 ity of 80-4.5 00:00: (two) [place] mcg/actuati 00 times Medical on inhaler daily. Branch fluticasone Yes [id number] 1{spray Use 1 Univers propionate 3-19 } [place] in ity o f 50 00:00: each [place] mcg/actuati 00 nostril 2 Med ical on nasal (two) Branch spray times daily. famotidine Yes [id number] 40mg Take 1 U nivers 40 mg 3-19 tablet by ity of tablet 00:00: mouth at [place] [address] bedtime. Medical Branch budesonide- Yes [id number] 2{puff} Inhale 2 Univers formoteroL 3-19 Puffs 2 ity of 80-4.5 00:00: (two) [place] mcg/actuati 00 times Medical on inhaler daily. Branch famotidine Yes [id number] 40mg Take 1 U nivers 40 mg 3-19 tablet by ity of tablet 00:00: mouth at [place] [address] bedtime. Medical Branch famotidine Yes [id number] 40mg Take 1 U nivers 40 mg 3-19 tablet by ity of tablet 00:00: mouth at [place] [address] bedtime. Medical Branch famotidine Yes [id number] 40mg Take 1 U nivers 40 mg 3-19 tablet by ity of tablet 00:00: mouth at [place] [address] bedtime. Medical Branch famotidine Yes [id number] 40mg Take 1 U nivers 40 mg 3-19 tablet by ity of tablet 00:00: mouth at [place] [address] bedtime. Medical Branch famotidine Yes [id number] 40mg Take 1 U nivers 40 mg 3-19 tablet by ity of tablet 00:00: mouth at [place] [address] bedtime. Medical Branch famotidine 0 Yes [id number] 40mg Take 1 U nivers 40 mg 3-19 tablet by ity of tablet 00:00: mouth at [place] [address] bedtime. Medical Branch famotidine 0 Yes [id number] 40mg Take 1 U nivers 40 mg 3-19 tablet by ity of tablet 00:00: mouth at [place] [address] bedtime. Medical Branch famotidine Yes [id number] 40mg Take 1 U nivers 40 mg 3-19 tablet by ity of tablet 00:00: mouth at [place] [address] bedtime. Medical Branch famotidine Yes [id number] 40mg Take 1 U nivers 40 mg 3-19 tablet by ity of tablet 00:00: mouth at [place] [address] bedtime. Medical Branch fluticasone 2020- No [id number] 1{spray Use 1 Univers propionate 3-23 } [place] in ity of 50 00:00: 00:00 each [place] mcg/actuati 00 :00 nostril 2 Med ical on nasal (two) Branch spray times daily. budesonide- 2020- No [id number] 2{puff} Inhale 2 Univers formoteroL 3-19 06-23 Puffs 2 ity o f 80-4.5 00:00: 00:00 (two) [place] mcg/actuati 00 :00 times Medical on inhaler daily. Branch benzonatate Yes [id number] 100mg Take 1 Univers 100 mg 1-07 capsule by ity of capsule 00:00: mouth 3 [place] (three) Medical times Branch daily as needed for Cough. famotidine Yes [id number] 40mg Take 1 U nivers 40 mg 1-07 tablet by ity of tablet 00:00: mouth at [place] [address] bedtime. Medical Branch fluticasone Yes [id number] 1{spray Use 1 Univers propionate 1-07 } [place] in ity o f 50 00:00: each [place] mcg/actuati 00 nostril 2 Med ical on nasal (two) Branch spray times daily. budesonide- 0 Yes [id number] 2{puff} Inhale 2 Univers formoteroL 1-07 Puffs 2 ity of 80-4.5 00:00: (two) [place] mcg/actuati 00 times Medical on inhaler daily. Branch benzonatate 2020-0 Yes [id number] 100mg Take 1 Univers 100 mg 1-07 capsule by ity of capsule 00:00: mouth 3 [place] 00 (three) Medical times Branch daily as needed for Cough. famotidine 2020-0 Yes [id number] 40mg Take 1 U nivers 40 mg 1-07 tablet by ity of tablet 00:00: mouth at [place] 00 bedtime. Medical Branch fluticasone Yes [id number] 1{spray Use 1 Univers propionate 1-07 } [place] in ity o f 50 00:00: each [place] mcg/actuati 00 nostril 2 Med ical on nasal (two) Branch spray times daily. budesonide- 0 Yes [id number] 2{puff} Inhale 2 Univers formoteroL 1-07 Puffs 2 ity of 80-4.5 00:00: (two) [place] mcg/actuati 00 times Medical on inhaler daily. Branch benzonatate Yes [id number] 100mg Take 1 Univers 100 mg 1-07 capsule by ity of capsule 00:00: mouth 3 [place] (three) Medical times Branch daily as needed for Cough. famotidine Yes [id number] 40mg Take 1 U nivers 40 mg 1-07 tablet by ity of tablet 00:00: mouth at [place] [address] bedtime. Medical Branch fluticasone Yes [id number] 1{spray Use 1 Univers propionate 1-07 } [place] in ity o f 50 00:00: each [place] mcg/actuati 00 nostril 2 Med ical on nasal (two) Branch spray times daily. budesonide- Yes [id number] 2{puff} Inhale 2 Univers formoteroL 1-07 Puffs 2 ity of 80-4.5 00:00: (two) [place] mcg/actuati 00 times Medical on inhaler daily. Branch benzonatate Yes [id number] 100mg Take 1 Univers 100 mg 1-07 capsule by ity of capsule 00:00: mouth 3 [place] 00 (three) Medical times Branch daily as needed for Cough. famotidine 0 Yes [id number] 40mg Take 1 U nivers 40 mg 1-07 tablet by ity of tablet 00:00: mouth at [place] [address] bedtime. Medical Branch fluticasone Yes [id number] 1{spray Use 1 Univers propionate 1-07 } [place] in ity o f 50 00:00: each [place] mcg/actuati 00 nostril 2 Med ical on nasal (two) Branch spray times daily. budesonide- 2020-0 Yes [id number] 2{puff} Inhale 2 Univers formoteroL 1-07 Puffs 2 ity of 80-4.5 00:00: (two) [place] mcg/actuati 00 times Medical on inhaler daily. Branch benzonatate 2020-0 Yes [id number] 100mg Take 1 Univers 100 mg 1-07 capsule by ity of capsule 00:00: mouth 3 (three) Medical times Branch daily as needed for Cough. benzonatate 2020-0 Yes [id number] 100mg Take 1 Univers 100 mg 1-07 capsule by ity of capsule 00:00: mouth 3 [place] (three) Medical times Branch daily as needed for Cough. benzonatate 2020-0 Yes [id number] 100mg Take 1 Univers 100 mg 1-07 capsule by ity of capsule 00:00: mouth 3 [place] (three) Medical times Branch daily as needed for Cough. benzonatate 2020-0 Yes [id number] 100mg Take 1 Univers 100 mg 1-07 capsule by ity of capsule 00:00: mouth 3 [place] (three) Medical times Branch daily as needed for Cough. benzonatate 2020-0 Yes [id number] 100mg Take 1 Univers 100 mg 1-07 capsule by ity of capsule 00:00: mouth [place] (three) Medical times Branch daily as needed for Cough. benzonatate 2020-0 Yes [id number] 100mg Take 1 Univers 100 mg 1-07 capsule by ity of capsule 00:00: mouth [address] [place] [address] (three) Medical times Branch daily as needed for Cough. benzonatate 2020-0 Yes [id number] 100mg Take 1 Univers 100 mg 1-07 capsule by ity of capsule 00:00: mouth [place] (three) Medical times Branch daily as needed for Cough. benzonatate 2020-0 Yes [id number] 100mg Take 1 Univers 100 mg 1-07 capsule by ity of capsule 00:00: mouth [place] (three) Medical times Branch daily as needed for Cough. benzonatate 2020-0 Yes [id number] 100mg Take 1 Univers 100 mg 1-07 capsule by ity of capsule 00:00: mouth 3 [place] (three) Medical times Branch daily as needed for Cough. benzonatate 2020-0 Yes [id number] 100mg Take 1 Univers 100 mg 1-07 capsule by ity of capsule 00:00: mouth [place] (three) Medical times Branch daily as needed for Cough. benzonatate 0 Yes [id number] 100mg Take 1 Univers 100 mg 1-07 capsule by ity of capsule 00:00: mouth 3 [place] 00 (three) Medical times Branch daily as needed for Cough. benzonatate 0 Yes [id number] 100mg Take 1 Univers 100 mg 1-07 capsule by ity of capsule 00:00: mouth 3 [place] 00 (three) Medical times Branch daily as needed for Cough. benzonatate Yes [id number] 100mg Take 1 Univers 100 mg 1-07 capsule by ity of capsule 00:00: mouth 3 [place] 00 (three) Medical times Branch daily as needed for Cough. benzonatate Yes [id number] 100mg Take 1 Univers 100 mg 1-07 capsule by ity of capsule 00:00: mouth 3 [place] 00 (three) Medical times Branch daily as needed for Cough. famotidine 2020- No [id number] 40mg Take 1 Univers 40 mg 11-22-19 tablet by ity of tablet 00:00: 00:00 mouth at [place] 00 :00 bedtime. Medical Branch fluticasone 2020- No [id number] 1{spray Use 1 Univers propionate 11-22- } [place] in ity of 50 00:00: 00:00 each [place] mcg/actuati 00 :00 nostril 2 Med ical on nasal (two) Branch spray times daily. budesonide- 2020- No [id number] 2{puff} Inhale 2 Univers formoteroL 11-22-19 Puffs 2 ity o f 80-4.5 00:00: 00:00 (two) [place] mcg/actuati 00 :00 times Medical on inhaler daily. Branch famotidine 2020- No [id number] 40mg Take 1 Univers 40 mg 11-22-19 tablet by ity of tablet 00:00: 00:00 mouth at [place] 00 :00 bedtime. Medical Branch fluticasone 2020- No [id number] 1{spray Use 1 Univers propionate 11-22-19 } [place] in ity of 50 00:00: 00:00 each [place] mcg/actuati 00 :00 nostril 2 Med ical on nasal (two) Branch spray times daily. budesonide- 2020-0 2020- No [id number] 2{puff} Inhale 2 Univers formoteroL 1-07 03-19 Puffs 2 ity o f 80-4.5 00:00: 00:00 (two) [place] mcg/actuati 00 :00 times Medical on inhaler daily. Branch lisinopril 2021-0 Yes 20mg Take 20 mg U nivers (PRINIVIL,Z 1-06 by mouth ity of ESTRIL) 20 15:36: daily. [place] mg tablet 18 Medical Branch metoprolol 2020-0 Yes 50mg Take 50 mg U nivers succinate 1-06 by mouth ity of XL (TOPROL 15:36: daily. [place] XL) 50 mg 18 Medical 24 hr Branch tablet metFORMIN 2020-0 Yes 500mg Take 500 Uni vers (GLUCOPHAGE 1-06 mg by ity of ) 500 mg 15:36: mouth 2 [place] tablet 18 (two) Medical times Branch daily with meals. lisinopril 1-0 Yes 20mg Take 20 mg U nivers (PRINIVIL,Z 1-06 by mouth ity of ESTRIL) 20 15:36: daily. [place] mg tablet 18 Medical Branch metoprolol 2020-0 Yes 50mg Take 50 mg U nivers succinate 1-06 by mouth ity of XL (TOPROL 15:36: daily. [place] XL) 50 mg 18 Medical 24 hr Branch tablet metFORMIN 2020-0 Yes 500mg Take 500 Uni vers (GLUCOPHAGE 1-06 mg by ity of ) 500 mg 15:36: mouth 2 [place] tablet 18 (two) Medical times Branch daily with meals. lisinopril 2021-0 Yes 20mg Take 20 mg U nivers (PRINIVIL,Z 1-06 by mouth ity of ESTRIL) 20 15:36: daily. [place] mg tablet 18 Medical Branch metoprolol 1-0 Yes 50mg Take 50 mg U nivers succinate 1-06 by mouth ity of XL (TOPROL 15:36: daily. [place] XL) 50 mg 18 Medical 24 hr Branch tablet metFORMIN 1-0 Yes 500mg Take 500 Uni vers (GLUCOPHAGE 1-06 mg by ity of ) 500 mg 15:36: mouth 2 [place] tablet 18 (two) Medical times Branch daily with meals. lisinopril 2021-0 Yes 20mg Take 20 mg U nivers (PRINIVIL,Z 1-06 by mouth ity of ESTRIL) 20 15:36: daily. [place] mg tablet 18 Medical Branch metoprolol 1-0 Yes 50mg Take 50 mg U nivers succinate 1-06 by mouth ity of XL (TOPROL 15:36: daily. [place] XL) 50 mg 18 Medical 24 hr Branch tablet metFORMIN 2021-0 Yes 500mg Take 500 Uni vers (GLUCOPHAGE 1-06 mg by ity of ) 500 mg 15:36: mouth 2 [place] tablet 18 (two) Medical times Branch daily with meals. lisinopril 2021-0 Yes 20mg Take 20 mg U nivers (PRINIVIL,Z 1-06 by mouth ity of ESTRIL) 20 15:36: daily. [place] mg tablet 18 Medical Branch metoprolol 1-0 Yes 50mg Take 50 mg U nivers succinate 1-06 by mouth ity of XL (TOPROL 15:36: daily. [place] XL) 50 mg 18 Medical 24 hr Branch tablet metFORMIN 2020-0 Yes 500mg Take 500 Uni vers (GLUCOPHAGE 1-06 mg by ity of ) 500 mg 15:36: mouth 2 [place] tablet 18 (two) Medical times Branch daily with meals. lisinopril 2021-0 Yes 20mg Take 20 mg U nivers (PRINIVIL,Z 1-06 by mouth ity of ESTRIL) 20 15:36: daily. [place] mg tablet 18 Medical Branch metoprolol 1-0 Yes 50mg Take 50 mg U nivers succinate 1-06 by mouth ity of XL (TOPROL 15:36: daily. [place] XL) 50 mg 18 Medical 24 hr Branch tablet metFORMIN 2020-0 Yes 500mg Take 500 Uni vers (GLUCOPHAGE 1-06 mg by ity of ) 500 mg 15:36: mouth 2 [place] tablet 18 (two) Medical times Branch daily with meals. lisinopril 2021-0 Yes 20mg Take 20 mg U nivers (PRINIVIL,Z 1-06 by mouth ity of ESTRIL) 20 15:36: daily. [place] mg tablet 18 Medical Branch metoprolol 2021-0 Yes 50mg Take 50 mg U nivers succinate 1-06 by mouth ity of XL (TOPROL 15:36: daily. [place] XL) 50 mg 18 Medical 24 hr Branch tablet metFORMIN 2021-0 Yes 500mg Take 500 Uni vers (GLUCOPHAGE 1-06 mg by ity of ) 500 mg 15:36: mouth 2 [place] tablet 18 (two) Medical times Branch daily with meals. lisinopril 2021-0 Yes 20mg Take 20 mg U nivers (PRINIVIL,Z 1-06 by mouth ity of ESTRIL) 20 15:36: daily. [place] mg tablet 18 Medical Branch metoprolol 2021-0 Yes 50mg Take 50 mg U nivers succinate 1-06 by mouth ity of XL (TOPROL 15:36: daily. [place] XL) 50 mg 18 Medical 24 hr Branch tablet metFORMIN 2021-0 Yes 500mg Take 500 Uni vers (GLUCOPHAGE 1-06 mg by ity of ) 500 mg 15:36: mouth 2 [place] tablet 18 (two) Medical times Branch daily with meals. lisinopril 2021-0 Yes 20mg Take 20 mg U nivers (PRINIVIL,Z 1-06 by mouth ity of ESTRIL) 20 15:36: daily. [place] mg tablet 18 Medical Branch metoprolol 2021-0 Yes 50mg Take 50 mg U nivers succinate 1-06 by mouth ity of XL (TOPROL 15:36: daily. [place] XL) 50 mg 18 Medical 24 hr Branch tablet metFORMIN 1-0 Yes 500mg Take 500 Uni vers (GLUCOPHAGE 1-06 mg by ity of ) 500 mg 15:36: mouth 2 [place] tablet 18 (two) Medical times Branch daily with meals. lisinopril 2021-0 Yes 20mg Take 20 mg U nivers (PRINIVIL,Z 1-06 by mouth ity of ESTRIL) 20 15:36: daily. [place] mg tablet 18 Medical Branch metoprolol 2021-0 Yes 50mg Take 50 mg U nivers succinate 1-06 by mouth ity of XL (TOPROL 15:36: daily. [place] XL) 50 mg 18 Medical 24 hr Branch tablet metFORMIN 2021-0 Yes 500mg Take 500 Uni vers (GLUCOPHAGE 1-06 mg by ity of ) 500 mg 15:36: mouth 2 [place] tablet 18 (two) Medical times Branch daily with meals. lisinopril 2021-0 Yes 20mg Take 20 mg U nivers (PRINIVIL,Z 1-06 by mouth ity of ESTRIL) 20 15:36: daily. [place] mg tablet 18 Medical Branch metoprolol 2021-0 Yes 50mg Take 50 mg U nivers succinate 1-06 by mouth ity of XL (TOPROL 15:36: daily. [place] XL) 50 mg 18 Medical 24 hr Branch tablet metFORMIN 1-0 Yes 500mg Take 500 Uni vers (GLUCOPHAGE 1-06 mg by ity of ) 500 mg 15:36: mouth 2 [place] tablet 18 (two) Medical times Branch daily with meals. lisinopril 2021-0 Yes 20mg Take 20 mg U nivers (PRINIVIL,Z 1-06 by mouth ity of ESTRIL) 20 15:36: daily. [place] mg tablet 18 Medical Branch metoprolol 1-0 Yes 50mg Take 50 mg U nivers succinate 1-06 by mouth ity of XL (TOPROL 15:36: daily. [place] XL) 50 mg 18 Medical 24 hr Branch tablet metFORMIN 2020-0 Yes 500mg Take 500 Uni vers (GLUCOPHAGE 1-06 mg by ity of ) 500 mg 15:36: mouth 2 [place] tablet 18 (two) Medical times Branch daily with meals. lisinopril 2021-0 Yes 20mg Take 20 mg U nivers (PRINIVIL,Z 1-06 by mouth ity of ESTRIL) 20 15:36: daily. [place] mg tablet 18 Medical Branch metoprolol 1-0 Yes 50mg Take 50 mg U nivers succinate 1-06 by mouth ity of XL (TOPROL 15:36: daily. [place] XL) 50 mg 18 Medical 24 hr Branch tablet metFORMIN 1-0 Yes 500mg Take 500 Uni vers (GLUCOPHAGE 1-06 mg by ity of ) 500 mg 15:36: mouth 2 [place] tablet 18 (two) Medical times Branch daily with meals. lisinopril 2021-0 Yes 20mg Take 20 mg U nivers (PRINIVIL,Z 1-06 by mouth ity of ESTRIL) 20 09:36: daily. [place] mg tablet 18 Medical Branch metoprolol 2021-0 Yes 50mg Take 50 mg U nivers succinate 1-06 by mouth ity of XL (TOPROL 09:36: daily. [place] XL) 50 mg 18 Medical 24 hr Branch tablet metFORMIN 2021-0 Yes 500mg Take 500 Uni vers (GLUCOPHAGE 1-06 mg by ity of ) 500 mg 09:36: mouth 2 [place] tablet 18 (two) Medical times Branch daily with meals. lisinopril 2021-0 Yes 20mg Take 20 mg U nivers (PRINIVIL,Z 1-06 by mouth ity of ESTRIL) 20 09:36: daily. [place] mg tablet 18 Medical Branch metoprolol 2021-0 Yes 50mg Take 50 mg U nivers succinate 1-06 by mouth ity of XL (TOPROL 09:36: daily. [place] XL) 50 mg 18 Medical 24 hr Branch tablet metFORMIN 2021-0 Yes 500mg Take 500 Uni vers (GLUCOPHAGE 1-06 mg by ity of ) 500 mg 09:36: mouth 2 [place] tablet 18 (two) Medical times Branch daily with meals. lisinopril 2021-0 Yes 20mg Take 20 mg U nivers (PRINIVIL,Z 1-06 by mouth ity of ESTRIL) 20 09:36: daily. [place] mg tablet 18 Medical Branch metoprolol 2021-0 Yes 50mg Take 50 mg U nivers succinate 1-06 by mouth ity of XL (TOPROL 09:36: daily. [place] XL) 50 mg 18 Medical 24 hr Branch tablet metFORMIN 2021-0 Yes 500mg Take 500 Uni vers (GLUCOPHAGE 1-06 mg by ity of ) 500 mg 09:36: mouth 2 [place] tablet 18 (two) Medical times Branch daily with meals. lisinopril 2021-0 Yes 20mg Take 20 mg U nivers (PRINIVIL,Z 1-06 by mouth ity of ESTRIL) 20 09:36: daily. [place] mg tablet 18 Medical Branch metoprolol 2021-0 Yes 50mg Take 50 mg U nivers succinate 1-06 by mouth ity of XL (TOPROL 09:36: daily. [place] XL) 50 mg 18 Medical 24 hr Branch tablet metFORMIN 2021-0 Yes 500mg Take 500 Uni vers (GLUCOPHAGE 1-06 mg by ity of ) 500 mg 09:36: mouth 2 [place] tablet 18 (two) Medical times Branch daily with meals. lisinopril 2021-0 Yes 20mg Take 20 mg [facility] (PRINIVIL,Z 1-06 by mouth ity of ESTRIL) 20 09:36: daily. [place] mg tablet 18 Medical Branch metoprolol 2021-0 Yes 50mg Take 50 mg [facility] succinate 1-06 by mouth ity of XL (TOPROL 09:36: daily. [place] XL) 50 mg 18 Medical 24 hr Branch tablet metFORMIN 2021-0 Yes 500mg Take 500 [facility] vers (GLUCOPHAGE 1-06 mg by ity of ) 500 mg 09:36: mouth 2 [place] tablet 18 (two) Medical times Branch daily with meals. lisinopril 2021-0 Yes 20mg Take 20 mg [facility] (PRINIVIL,Z 1-06 by mouth ity of ESTRIL) 20 09:36: daily. [place] mg tablet 18 Medical Branch metoprolol 2021-0 Yes 50mg Take 50 mg [facility] succinate 1-06 by mouth ity of XL (TOPROL 09:36: daily. [place] XL) 50 mg 18 Medical 24 hr Branch tablet metFORMIN 1-0 Yes 500mg Take 500 [facility] vers (GLUCOPHAGE 1-06 mg by ity of ) 500 mg 09:36: mouth 2 [place] tablet 18 (two) Medical times Branch daily with meals. lisinopril 2021-0 Yes 20mg Take 20 mg [facility] (PRINIVIL,Z 1-06 by mouth ity of ESTRIL) 20 09:36: daily. [place] mg tablet 18 Medical Branch metoprolol 1-0 Yes 50mg Take 50 mg [facility] succinate 1-06 by mouth ity of XL (TOPROL 09:36: daily. [place] XL) 50 mg 18 Medical 24 hr Branch tablet metFORMIN 2020-0 Yes 500mg Take 500 [facility] vers (GLUCOPHAGE 1-06 mg by ity of ) 500 mg 09:36: mouth 2 [place] tablet 18 (two) Medical times Branch daily with meals. lisinopril 2021-0 Yes 20mg Take 20 mg [facility] (PRINIVIL,Z 1-06 by mouth ity of ESTRIL) 20 09:36: daily. [place] mg tablet 18 Medical [facility] metoprolol 2021-0 Yes 50mg Take 50 mg [facility] succinate 1-06 by mouth ity of XL (TOPROL 09:36: daily. [place] XL) 50 mg 18 Medical 24 hr Branch tablet metFORMIN 2021-0 Yes 500mg Take 500 [facility] vers (GLUCOPHAGE 1-06 mg by ity of ) 500 mg 09:36: mouth 2 [place] tablet 18 (two) Medical times Branch daily with meals. budesonide- 2021-0 Yes [id number] 2{puff} Inhale 2 [facility] formoteroL 1-06 Puffs 2 ity of 80-4.5 00:00: (two) [place] mcg/actuati 00 times Medical on inhaler daily. Branch fluticasone 2020- Yes [id number] 1{spray Use 1 [facility] propionate 1-06 } [place] in ity o f 50 00:00: each [place] mcg/actuati 00 nostril 2 Med ical on nasal (two) Branch spray times daily. famotidine 2020-0 Yes [id number] 40mg Take 1 [facility] 40 mg 1-06 tablet by ity of tablet 00:00: mouth at [place] 00 bedtime. Medical Branch benzonatate 2020-0 Yes [id number] 100mg Take 1 [facility] 100 mg 1-06 capsule by ity of capsule 00:00: mouth 3 [place] (three) Medical times Branch daily as needed for Cough. budesonide- 2020-0 Yes [id number] 2{puff} Inhale 2 [facility] formoteroL 1-06 Puffs 2 ity of 80-4.5 00:00: (two) [place] mcg/actuati 00 times Medical on inhaler daily. Branch fluticasone 0 Yes [id number] 1{spray Use 1 [facility] propionate 1-06 } [place] in ity o f 50 00:00: each [place] mcg/actuati 00 nostril 2 Med ical on nasal (two) Branch spray times daily. famotidine 0 Yes [id number] 40mg Take 1 [facility] 40 mg 1-06 tablet by ity of tablet 00:00: mouth at [place] [address] bedtime. Medical Branch benzonatate 0 Yes [id number] 100mg Take 1 [facility] 100 mg 1-06 capsule by ity of capsule 00:00: mouth 3 [place] 00 (three) Medical times Branch daily as needed for Cough. budesonide- 2020-0 Yes [id number] 2{puff} Inhale 2 [facility] formoteroL 1-06 Puffs 2 ity of 80-4.5 00:00: (two) [place] mcg/actuati 00 times Medical on inhaler daily. Branch fluticasone 2020-0 Yes [id number] 1{spray Use 1 [facility] propionate 1-06 } [place] in ity o f 50 00:00: each [place] mcg/actuati 00 nostril 2 Med ical on nasal (two) Branch spray times daily. famotidine Yes [id number] 40mg Take 1 [facility] 40 mg -06 tablet by ity of tablet 00:00: mouth at [place] 00 bedtime. Medical Branch benzonatate Yes [id number] 100mg Take 1 [facility] 100 mg -06 capsule by ity of capsule 00:00: mouth 3 [place] 00 (three) Medical times Branch daily as needed for Cough. budesonide- 2020- No [id number] 2{puff} Inhale 2 [facility] formoteroL 11-21 Puffs 2 ity o f 80-4.5 00:00: 00:00 (two) [place] mcg/actuati 00 :00 times Medical on inhaler daily. Branch fluticasone 2020- No [id number] 1{spray Use 1 [facility] propionate 11-21 } [place] in ity of 50 00:00: 00:00 each [place] mcg/actuati 00 :00 nostril 2 Med ical on nasal (two) Branch spray times daily. famotidine 2020- No [id number] 40mg Take 1 [facility] 40 mg 11-21 tablet by ity of tablet 00:00: 00:00 mouth at [place] 00 :00 bedtime. Medical Branch benzonatate 2020- No [id number] 100mg Take 1 [facility] 100 mg 11-21 capsule by ity of capsule 00:00: 00:00 mouth 3 [place] 00 :00 (three) Medical times Branch daily as needed for Cough. budesonide- 2020- No [id number] 2{puff} Inhale 2 [facility] formoteroL 11-21 Puffs 2 ity o f 80-4.5 00:00: 00:00 (two) [place] mcg/actuati 00 :00 times Medical on inhaler daily. Branch fluticasone 2020- No [id number] 1{spray Use 1 [facility] propionate 11-21 } [place] in ity of 50 00:00: 00:00 each [place] mcg/actuati 00 :00 nostril 2 Med ical on nasal (two) Branch spray times daily. famotidine 2020- No [id number] 40mg Take 1 [facility] 40 mg 1-06 01-07 tablet by ity of tablet 00:00: 00:00 mouth at [place] 00 :00 bedtime. Medical Branch benzonatate 2020-0 2020- No [id number] 100mg Take 1 [facility] 100 mg 11-21 capsule by ity of capsule 00:00: 00:00 mouth 3 [place] 00 :00 (three) Medical times Branch daily as needed for Cough. sulfamethox 2017-11 Yes [id number] 1{tbl} Take 1 [facility] azole-trime 0-12 tablet by ity of thoprim 00:00: mouth 2 [place] 800-160 mg 00 (two) Medical per tablet times Branch daily. traMADOL 50 2017-11 Yes [id number] 50mg Take 1 [facility] mg tablet 0-12 tablet by ity o f 00:00: mouth [place] 00 every 6 Medical (six) Branch hours as needed for Pain (scale 4-6) or Pain (scale 7-10). sulfamethox 2017-11 Yes [id number] 1{tbl} Take 1 [facility] azole-trime 0-12 tablet by ity of thoprim 00:00: mouth 2 [place] 800-160 mg 00 (two) Medical per tablet times Branch daily. traMADOL 50 2017-11 Yes [id number] 50mg Take 1 [facility] mg tablet 0-12 tablet by ity o f 00:00: mouth [place] 00 every 6 Medical (six) Branch hours as needed for Pain (scale 4-6) or Pain (scale 7-10). sulfamethox 2017-11 Yes [id number] 1{tbl} Take 1 [facility] azole-trime 0-12 tablet by ity of thoprim 00:00: mouth 2 [place] 800-160 mg 00 (two) Medical per tablet times Branch daily. traMADOL 50 2017-11 Yes [id number] 50mg Take 1 [facility] mg tablet 0-12 tablet by ity o f 00:00: mouth [place] 00 every 6 Medical (six) Branch hours as needed for Pain (scale 4-6) or Pain (scale 7-10). sulfamethox 2017-11 Yes [id number] 1{tbl} Take 1 [facility] azole-trime 0-12 tablet by ity of thoprim 00:00: mouth 2 [place] 800-160 mg 00 (two) Medical per tablet times Branch daily. traMADOL 50 2017-11 Yes [id number] 50mg Take 1 [facility] mg tablet 0-12 tablet by ity o f 00:00: mouth [place] 00 every 6 Medical (six) Branch hours as needed for Pain (scale 4-6) or Pain (scale 7-10). sulfamethox 2017-11 Yes [id number] 1{tbl} Take 1 [facility] azole-trime 0-12 tablet by ity of thoprim 00:00: mouth 2 [place] 800-160 mg 00 (two) Medical per tablet times Branch daily. traMADOL 50 2017-11 Yes [id number] 50mg Take 1 [facility] mg tablet 0-12 tablet by ity o f 00:00: mouth [place] 00 every 6 Medical (six) Branch hours as needed for Pain (scale 4-6) or Pain (scale 7-10). sulfamethox 2017-11 Yes [id number] 1{tbl} Take 1 [facility] azole-trime 0-12 tablet by ity of thoprim 00:00: mouth 2 [place] 800-160 mg 00 (two) Medical per tablet times Branch daily. traMADOL 50 2017-11 Yes [id number] 50mg Take 1 [facility] mg tablet 0-12 tablet by ity o f 00:00: mouth [place] 00 every 6 Medical (six) Branch hours as needed for Pain (scale 4-6) or Pain (scale 7-10). sulfamethox 2017-11 Yes [id number] 1{tbl} Take 1 [facility] azole-trime 0-12 tablet by ity of thoprim 00:00: mouth 2 [place] 800-160 mg 00 (two) Medical per tablet times Branch daily. traMADOL 50 2017-11 Yes [id number] 50mg Take 1 [facility] mg tablet 0-12 tablet by ity o f 00:00: mouth [place] 00 every 6 Medical (six) Branch hours as needed for Pain (scale 4-6) or Pain (scale 7-10). sulfamethox 2017-11 Yes [id number] 1{tbl} Take 1 [facility] azole-trime 0-12 tablet by ity of thoprim 00:00: mouth 2 [place] 800-160 mg 00 (two) Medical per tablet times Branch daily. traMADOL 50 2017-11 Yes [id number] 50mg Take 1 [facility] mg tablet 0-12 tablet by ity o f 00:00: mouth [place] 00 every 6 Medical (six) Branch hours as needed for Pain (scale 4-6) or Pain (scale 7-10). sulfamethox 2017-11 Yes [id number] 1{tbl} Take 1 [facility] azole-trime 0-12 tablet by ity of thoprim 00:00: mouth 2 [place] 800-160 mg 00 (two) Medical per tablet times Branch daily. traMADOL 50 2017-11 Yes [id number] 50mg Take 1 [facility] mg tablet 0-12 tablet by ity o f 00:00: mouth [place] 00 every 6 Medical (six) Branch hours as needed for Pain (scale 4-6) or Pain (scale 7-10). sulfamethox 2017-11 Yes [id number] 1{tbl} Take 1 [facility] azole-trime 0-12 tablet by ity of thoprim 00:00: mouth 2 [place] 800-160 mg 00 (two) Medical per tablet times Branch daily. traMADOL 50 2017-11 Yes [id number] 50mg Take 1 [facility] mg tablet 0-12 tablet by ity o f 00:00: mouth [place] 00 every 6 Medical (six) Branch hours as needed for Pain (scale 4-6) or Pain (scale 7-10). sulfamethox 2017-11 Yes [id number] 1{tbl} Take 1 [facility] azole-trime 0-12 tablet by ity of thoprim 00:00: mouth 2 [place] 800-160 mg 00 (two) Medical per tablet times Branch daily. traMADOL 50 2017-11 Yes [id number] 50mg Take 1 [facility] mg tablet 0-12 tablet by ity o f 00:00: mouth [place] 00 every 6 Medical (six) Branch hours as needed for Pain (scale 4-6) or Pain (scale 7-10). sulfamethox 2017-11 Yes [id number] 1{tbl} Take 1 [facility] azole-trime 0-12 tablet by ity of thoprim 00:00: mouth 2 [place] 800-160 mg 00 (two) Medical per tablet times Branch daily. traMADOL 50 2017-11 Yes [id number] 50mg Take 1 [facility] mg tablet 0-12 tablet by ity o f 00:00: mouth [place] 00 every 6 Medical (six) Branch hours as needed for Pain (scale 4-6) or Pain (scale 7-10). sulfamethox 2017-11 Yes [id number] 1{tbl} Take 1 [facility] azole-trime 0-12 tablet by ity of thoprim 00:00: mouth 2 [place] 800-160 mg 00 (two) Medical per tablet times Branch daily. traMADOL 50 2017-11 Yes [id number] 50mg Take 1 [facility] mg tablet 0-12 tablet by ity o f 00:00: mouth [place] 00 every 6 Medical (six) Branch hours as needed for Pain (scale 4-6) or Pain (scale 7-10). sulfamethox 2017-11 Yes [id number] 1{tbl} Take 1 [facility] azole-trime 0-12 tablet by ity of thoprim 00:00: mouth 2 [place] 800-160 mg 00 (two) Medical per tablet times Branch daily. traMADOL 50 2017-11 Yes [id number] 50mg Take 1 [facility] mg tablet 0-12 tablet by ity o f 00:00: mouth [place] 00 every 6 Medical (six) Branch hours as needed for Pain (scale 4-6) or Pain (scale 7-10). sulfamethox 2017-11 Yes [id number] 1{tbl} Take 1 [facility] azole-trime 0-12 tablet by ity of thoprim 00:00: mouth 2 [place] 800-160 mg 00 (two) Medical per tablet times Branch daily. traMADOL 50 2017-11 Yes [id number] 50mg Take 1 [facility] mg tablet 0-12 tablet by ity o f 00:00: mouth [place] 00 every 6 Medical (six) Branch hours as needed for Pain (scale 4-6) or Pain (scale 7-10). sulfamethox 2017-11 Yes [id number] 1{tbl} Take 1 [facility] azole-trime 0-12 tablet by ity of thoprim 00:00: mouth 2 [place] 800-160 mg 00 (two) Medical per tablet times Branch daily. traMADOL 50 2017-11 Yes [id number] 50mg Take 1 [facility] mg tablet 0-12 tablet by ity o f 00:00: mouth [place] 00 every 6 Medical (six) Branch hours as needed for Pain (scale 4-6) or Pain (scale 7-10). sulfamethox 2017-11 Yes [id number] 1{tbl} Take 1 [facility] azole-trime 0-12 tablet by ity of thoprim 00:00: mouth 2 [place] 800-160 mg 00 (two) Medical per tablet times Branch daily. traMADOL 50 2017-11 Yes [id number] 50mg Take 1 [facility] mg tablet 0-12 tablet by ity o f 00:00: mouth [place] 00 every 6 Medical (six) Branch hours as needed for Pain (scale 4-6) or Pain (scale 7-10). sulfamethox 2017-11 Yes [id number] 1{tbl} Take 1 [facility] azole-trime 0-12 tablet by ity of thoprim 00:00: mouth 2 [place] 800-160 mg 00 (two) Medical per tablet times Branch daily. traMADOL 50 2017-11 Yes [id number] 50mg Take 1 [facility] mg tablet 0-12 tablet by ity o f 00:00: mouth [place] 00 every 6 Medical (six) Branch hours as needed for Pain (scale 4-6) or Pain (scale 7-10). sulfamethox 2017-11 Yes [id number] 1{tbl} Take 1 [facility] azole-trime 0-12 tablet by ity of thoprim 00:00: mouth 2 [place] 800-160 mg 00 (two) Medical per tablet times Branch daily. traMADOL 50 2017-11 Yes [id number] 50mg Take 1 [facility] mg tablet 0-12 tablet by ity o f 00:00: mouth [place] 00 every 6 Medical (six) Branch hours as needed for Pain (scale 4-6) or Pain (scale 7-10). sulfamethox 2017-11 Yes [id number] 1{tbl} Take 1 [facility] azole-trime 0-12 tablet by ity of thoprim 00:00: mouth 2 [place] 800-160 mg 00 (two) Medical per tablet times Branch daily. traMADOL 50 2017-11 Yes [id number] 50mg Take 1 [facility] mg tablet 0-12 tablet by ity o f 00:00: mouth [place] 00 every 6 Medical (six) Branch hours as needed for Pain (scale 4-6) or Pain (scale 7-10). sulfamethox 2017-11 Yes [id number] 1{tbl} Take 1 [facility] azole-trime 0-12 tablet by ity of thoprim 00:00: mouth 2 [place] 800-160 mg 00 (two) Medical per tablet times Branch daily. traMADOL 50 2017-11 Yes [id number] 50mg Take 1 [facility] mg tablet 0-12 tablet by ity o f 00:00: mouth [place] 00 every 6 Medical (six) Branch hours as needed for Pain (scale 4-6) or Pain (scale 7-10). sulfamethox 2017-11 Yes [id number] 1{tbl} Take 1 [facility] azole-trime 0-12 tablet by ity of thoprim 00:00: mouth 2 [place] 800-160 mg 00 (two) Medical per tablet times Branch daily. traMADOL 50 2017-11 Yes [id number] 50mg Take 1 [facility] mg tablet 0-12 tablet by ity o f 00:00: mouth [place] 00 every 6 Medical (six) Branch hours as needed for Pain (scale 4-6) or Pain (scale 7-10). lisinopril 2017- Yes 20mg Take 20 mg [facility] (PRINIVIL,Z 9-26 by mouth ity of ESTRIL) 20 20:04: daily. [place] mg tablet 20 Medical Branch metoprolol Yes 50mg Take 50 mg [facility] succinate 9-26 by mouth ity of XL (TOPROL 20:04: daily. [place] XL) 50 mg 20 Medical 24 hr Branch tablet metFORMIN Yes 500mg Take 500 [facility] vers (GLUCOPHAGE 9-26 mg by ity of ) 500 mg 20:04: mouth 2 [place] tablet 20 (two) Medical times Branch daily with meals. ibuprofen Yes 600mg Take 1 [facility] rs 600 mg 9-26 tablet by ity of tablet 00:00: mouth [place] 00 every 6 Medical (six) Branch hours as needed for Pain (scale 4-6) or Alternate with [facility] for pain scale 1-3. LORazepam 2018- Yes .5mg Take 1 [facility] s 0.5 mg 9-26 tablet by ity of tablet 00:00: mouth at [place] 00 bedtime as Medical needed for Branch Anxiety. ibuprofen 2018-0 Yes 600mg Take 1 [facility] rs 600 mg 9-26 tablet by ity of tablet 00:00: mouth [place] 00 every 6 Medical (six) Branch hours as needed for Pain (scale 4-6) or Alternate with [facility] Branch for pain scale 1-3. LORazepam 2018- Yes .5mg Take 1 [facility] s 0.5 mg 9-26 tablet by ity of tablet 00:00: mouth at [place] 00 bedtime as Medical needed for Branch Anxiety. ibuprofen 2017-0 Yes 600mg Take 1 [facility] rs 600 mg 9-26 tablet by ity of tablet 00:00: mouth [place] 00 every 6 Medical (six) Branch hours as needed for Pain (scale 4-6) or Alternate with [facility] Branch for pain scale 1-3. LORazepam 2018-0 Yes .5mg Take 1 [facility] s 0.5 mg 9-26 tablet by ity of tablet 00:00: mouth at [place] 00 bedtime as Medical needed for Branch Anxiety. ibuprofen 2018-0 Yes 600mg Take 1 [facility] rs 600 mg 9-26 tablet by ity of tablet 00:00: mouth [place] 00 every 6 Medical (six) Branch hours as needed for Pain (scale 4-6) or Alternate with [facility] Branch for pain scale 1-3. LORazepam 2018-0 Yes .5mg Take 1 [facility] s 0.5 mg 9-26 tablet by ity of tablet 00:00: mouth at [place] 00 bedtime as Medical needed for Branch Anxiety. ibuprofen 2018-0 Yes 600mg Take 1 [facility] rs 600 mg 9-26 tablet by ity of tablet 00:00: mouth [place] 00 every 6 Medical (six) Branch hours as needed for Pain (scale 4-6) or Alternate with [facility] Branch for pain scale 1-3. LORazepam 2018-0 Yes .5mg Take 1 [facility] 0.5 mg 9-26 tablet by ity of tablet 00:00: mouth at [place] 00 bedtime as Medical needed for Branch Anxiety. ibuprofen 2018-0 Yes 600mg Take 1 [facility] rs 600 mg 9-26 tablet by ity of tablet 00:00: mouth [place] 00 every 6 Medical (six) Branch hours as needed for Pain (scale 4-6) or Alternate with [facility] Branch for pain scale 1-3. LORazepam 2018-0 Yes .5mg Take 1 [facility] 0.5 mg 9-26 tablet by ity of tablet 00:00: mouth at [place] 00 bedtime as Medical needed for Branch Anxiety. ibuprofen 2018-0 Yes 600mg Take 1 [facility] rs 600 mg 9-26 tablet by ity of tablet 00:00: mouth [place] 00 every 6 Medical (six) Branch hours as needed for Pain (scale 4-6) or Alternate with [facility] for pain scale 1-3. LORazepam 2018-0 Yes .5mg Take 1 [facility] 0.5 mg 9-26 tablet by ity of tablet 00:00: mouth at [place] 00 bedtime as Medical needed for Branch Anxiety. ibuprofen 2018-0 Yes 600mg Take 1 [facility] rs 600 mg 9-26 tablet by ity of tablet 00:00: mouth [place] 00 every 6 Medical (six) Branch hours as needed for Pain (scale 4-6) or Alternate with [facility] for pain scale 1-3. LORazepam 2018-0 Yes .5mg Take 1 [facility] s 0.5 mg 9-26 tablet by ity of tablet 00:00: mouth at [place] 00 bedtime as Medical needed for Branch Anxiety. ibuprofen 2018-0 Yes 600mg Take 1 [facility] rs 600 mg 9-26 tablet by ity of tablet 00:00: mouth [place] 00 every 6 Medical (six) Branch hours as needed for Pain (scale 4-6) or Alternate with [facility] Branch for pain scale 1-3. LORazepam 2018-0 Yes .5mg Take 1 [facility] 0.5 mg 9-26 tablet by ity of tablet 00:00: mouth at [place] 00 bedtime as Medical needed for Branch Anxiety. ibuprofen 2018-0 Yes 600mg Take 1 [facility] rs 600 mg 9-26 tablet by ity of tablet 00:00: mouth [place] 00 every 6 Medical (six) Branch hours as needed for Pain (scale 4-6) or Alternate with [facility] Branch for pain scale 1-3. LORazepam 2018-0 Yes .5mg Take 1 [facility] 0.5 mg 9-26 tablet by ity of tablet 00:00: mouth at [place] 00 bedtime as Medical needed for Branch Anxiety. ibuprofen 2018-0 Yes 600mg Take 1 [facility] rs 600 mg 9-26 tablet by ity of tablet 00:00: mouth [place] 00 every 6 Medical (six) Branch hours as needed for Pain (scale 4-6) or Alternate with [facility] for pain scale 1-3. LORazepam 2018-0 Yes .5mg Take 1 [facility] 0.5 mg 9-26 tablet by ity of tablet 00:00: mouth at [place] 00 bedtime as Medical needed for Branch Anxiety. ibuprofen 2018-0 Yes 600mg Take 1 [facility] rs 600 mg 9-26 tablet by ity of tablet 00:00: mouth [place] 00 every 6 Medical (six) Branch hours as needed for Pain (scale 4-6) or Alternate with [facility] for pain scale 1-3. LORazepam 2018-0 Yes .5mg Take 1 [facility] 0.5 mg 9-26 tablet by ity of tablet 00:00: mouth at [place] 00 bedtime as Medical needed for Branch Anxiety. ibuprofen 2018-0 Yes 600mg Take 1 [facility] rs 600 mg 9-26 tablet by ity of tablet 00:00: mouth [place] 00 every 6 Medical (six) Branch hours as needed for Pain (scale 4-6) or Alternate with [facility] Branch for pain scale 1-3. LORazepam 2018-0 Yes .5mg Take 1 [facility] 0.5 mg 9-26 tablet by ity of tablet 00:00: mouth at [place] 00 bedtime as Medical needed for Branch Anxiety. ibuprofen 2018-0 Yes 600mg Take 1 [facility] rs 600 mg 9-26 tablet by ity of tablet 00:00: mouth [place] 00 every 6 Medical (six) Branch hours as needed for Pain (scale 4-6) or Alternate with [facility] for pain scale 1-3. LORazepam 2018-0 Yes .5mg Take 1 [facility] 0.5 mg 9-26 tablet by ity of tablet 00:00: mouth at [place] 00 bedtime as Medical needed for Branch Anxiety. ibuprofen 2018-0 Yes 600mg Take 1 [facility] rs 600 mg 9-26 tablet by ity of tablet 00:00: mouth [place] 00 every 6 Medical (six) Branch hours as needed for Pain (scale 4-6) or Alternate with [facility] for pain scale 1-3. LORazepam 2018-0 Yes .5mg Take 1 [facility] 0.5 mg 9-26 tablet by ity of tablet 00:00: mouth at [place] 00 bedtime as Medical needed for Branch Anxiety. ibuprofen 2018-0 Yes 600mg Take 1 [facility] rs 600 mg 9-26 tablet by ity of tablet 00:00: mouth [place] 00 every 6 Medical (six) Branch hours as needed for Pain (scale 4-6) or Alternate with [facility] for pain scale 1-3. LORazepam 2018-0 Yes .5mg Take 1 [facility] 0.5 mg 9-26 tablet by ity of tablet 00:00: mouth at [place] 00 bedtime as Medical needed for Branch Anxiety. ibuprofen 2018-0 Yes 600mg Take 1 [facility] rs 600 mg 9-26 tablet by ity of tablet 00:00: mouth [place] 00 every 6 Medical (six) Branch hours as needed for Pain (scale 4-6) or Alternate with [facility] for pain scale 1-3. LORazepam 2018-0 Yes .5mg Take 1 [facility] 0.5 mg 9-26 tablet by ity of tablet 00:00: mouth at [place] 00 bedtime as Medical needed for Branch Anxiety. ibuprofen 2018-0 Yes 600mg Take 1 [facility] rs 600 mg 9-26 tablet by ity of tablet 00:00: mouth [place] 00 every 6 Medical (six) Branch hours as needed for Pain (scale 4-6) or Alternate with [facility] for pain scale 1-3. LORazepam 2018-0 Yes .5mg Take 1 [facility] 0.5 mg 9-26 tablet by ity of tablet 00:00: mouth at [place] 00 bedtime as Medical needed for Branch Anxiety. ibuprofen 2018-0 Yes 600mg Take 1 [facility] rs 600 mg 9-26 tablet by ity of tablet 00:00: mouth [place] 00 every 6 Medical (six) Branch hours as needed for Pain (scale 4-6) or Alternate with [facility] for pain scale 1-3. LORazepam 2018-0 Yes .5mg Take 1 [facility] 0.5 mg 9-26 tablet by ity of tablet 00:00: mouth at [place] 00 bedtime as Medical needed for Branch Anxiety. ibuprofen 2018-0 Yes 600mg Take 1 [facility] rs 600 mg 9-26 tablet by ity of tablet 00:00: mouth [place] 00 every 6 Medical (six) Branch hours as needed for Pain (scale 4-6) or Alternate with [facility] for pain scale 1-3. LORazepam 2018-0 Yes .5mg Take 1 [facility] 0.5 mg 9-26 tablet by ity of tablet 00:00: mouth at [place] 00 bedtime as Medical needed for Branch Anxiety. ibuprofen 2018-0 Yes 600mg Take 1 [facility] rs 600 mg 9-26 tablet by ity of tablet 00:00: mouth [place] 00 every 6 Medical (six) Branch hours as needed for Pain (scale 4-6) or Alternate with [facility] for pain scale 1-3. LORazepam 2018-0 Yes .5mg Take 1 [facility] 0.5 mg 9-26 tablet by ity of tablet 00:00: mouth at [place] 00 bedtime as Medical needed for Branch Anxiety. ibuprofen 2018-0 Yes 600mg Take 1 [facility] rs 600 mg 9-26 tablet by ity of tablet 00:00: mouth [place] 00 every 6 Medical (six) Branch hours as needed for Pain (scale 4-6) or Alternate with [facility] for pain scale 1-3. LORazepam Yes .5mg Take 1 [facility] 0.5 mg 9-26 tablet by ity of tablet 00:00: mouth at [place] 00 bedtime as Medical needed for Branch Anxiety. traZODone Yes [id number] 150mg Take 1 Tab [facility] (DESYREL) 8-06 by mouth ity of 150 mg 00:00: at [place] tablet 00 bedtime. Medical Branch traZODone Yes [id number] 150mg Take 1 Tab [facility] (DESYREL) 8-06 by mouth ity of 150 mg 00:00: at [place] tablet 00 bedtime. Medical Branch traZODone Yes [id number] 150mg Take 1 Tab [facility] (DESYREL) 8-06 by mouth ity of 150 mg 00:00: at [place] tablet 00 bedtime. Medical Branch traZODone Yes [id number] 150mg Take 1 Tab [facility] (DESYREL) 8-06 by mouth ity of 150 mg 00:00: at [place] tablet 00 bedtime. Medical Branch traZODone Yes [id number] 150mg Take 1 Tab [facility] (DESYREL) 8-06 by mouth ity of 150 mg 00:00: at [place] tablet 00 bedtime. Medical Branch traZODone Yes [id number] 150mg Take 1 Tab [facility] (DESYREL) 8-06 by mouth ity of 150 mg 00:00: at [place] tablet 00 bedtime. Medical Branch traZODone Yes [id number] 150mg Take 1 Tab [facility] (DESYREL) 8-06 by mouth ity of 150 mg 00:00: at [place] tablet 00 bedtime. Medical Branch traZODone Yes [id number] 150mg Take 1 Tab [facility] (DESYREL) 8-06 by mouth ity of 150 mg 00:00: at [place] tablet 00 bedtime. Medical Branch traZODone Yes [id number] 150mg Take 1 Tab [facility] (DESYREL) 8-06 by mouth ity of 150 mg 00:00: at [place] tablet 00 bedtime. Medical Branch traZODone Yes [id number] 150mg Take 1 Tab [facility] (DESYREL) 8-06 by mouth ity of 150 mg 00:00: at [place] tablet 00 bedtime. Medical Branch traZODone 2013-0 Yes [id number] 150mg Take 1 Tab [facility] (DESYREL) 8-06 by mouth ity of 150 mg 00:00: at [place] tablet 00 bedtime. Medical Branch traZODone 2013-0 Yes [id number] 150mg Take 1 Tab [facility] (DESYREL) 8-06 by mouth ity of 150 mg 00:00: at [place] tablet 00 bedtime. Medical Branch traZODone 2013-0 Yes [id number] 150mg Take 1 Tab [facility] (DESYREL) 8-06 by mouth ity of 150 mg 00:00: at [place] tablet 00 bedtime. Medical Branch traZODone 2013-0 Yes [id number] 150mg Take 1 Tab [facility] (DESYREL) 8-06 by mouth ity of 150 mg 00:00: at [place] tablet 00 bedtime. Medical Branch traZODone 2013-0 Yes [id number] 150mg Take 1 Tab [facility] (DESYREL) 8-06 by mouth ity of 150 mg 00:00: at [place] tablet 00 bedtime. Medical Branch traZODone 2013-0 Yes [id number] 150mg Take 1 Tab [facility] (DESYREL) 8-06 by mouth ity of 150 mg 00:00: at [place] tablet 00 bedtime. [facility] traZODone 2013-0 Yes [id number] 150mg Take 1 [facility] (DESYREL) 8-06 by mouth ity of 150 mg 00:00: at [place] tablet 00 bedtime. [facility] traZODone 2013-0 Yes [id number] 150mg Take 1 Tab [facility] (DESYREL) 8-06 by mouth ity of 150 mg 00:00: at [place] tablet 00 bedtime. [facility] traZODone 2013-0 Yes [id number] 150mg Take 1 Tab [facility] (DESYREL) 8-06 by mouth ity of 150 mg 00:00: at [place] tablet 00 bedtime. [facility] traZODone 2013-0 Yes [id number] 150mg Take 1 Tab [facility] (DESYREL) 8-06 by mouth ity of 150 mg 00:00: at [place] tablet 00 bedtime. [facility] traZODone 2013-0 Yes [id number] 150mg Take 1 Tab [facility] (DESYREL) 8-06 by mouth ity of 150 mg 00:00: at [place] tablet 00 bedtime. [facility] traZODone Yes [id number] 150mg Take 1 Tab [facility] (DESYREL) 8-06 by mouth ity of 150 mg 00:00: at [place] tablet 00 bedtime. [facility] benztropine Yes [id number] 2mg Take 1 [facility] (COGENTIN) 7-09 by mouth ity o f 2 mg tablet 00:00: at [place] 00 bedtime. [facility] citalopram Yes [id number] 40mg Take 1 [facility] (CELEXA) 40 7-09 by mouth ity of mg tablet 00:00: daily. [facility] benztropine Yes [id number] 2mg Take 1 [facility] (COGENTIN) 7-09 by mouth ity o f 2 mg tablet 00:00: at [place] 00 bedtime. [facility] citalopram Yes [id number] 40mg Take 1 [facility] (CELEXA) 40 7-09 by mouth ity of mg tablet 00:00: daily. [facility] benztropine Yes [id number] 2mg Take 1 [facility] (COGENTIN) 7-09 by mouth ity o f 2 mg tablet 00:00: at [place] 00 bedtime. [facility] citalopram Yes [id number] 40mg Take 1 [facility] (CELEXA) 40 7-09 by mouth ity of mg tablet 00:00: daily. [facility] benztropine Yes [id number] 2mg Take 1 [facility] (COGENTIN) 7-09 by mouth ity o f 2 mg tablet 00:00: at [place] 00 bedtime. [facility] citalopram Yes [id number] 40mg Take 1 [facility] (CELEXA) 40 7-09 by mouth ity of mg tablet 00:00: daily. [facility] benztropine Yes [id number] 2mg Take 1 [facility] (COGENTIN) 7-09 by mouth ity o f 2 mg tablet 00:00: at [place] 00 bedtime. [facility] citalopram Yes [id number] 40mg Take 1 [facility] (CELEXA) 40 7-09 by mouth ity of mg tablet 00:00: daily. [facility] benztropine Yes [id number] 2mg Take 1 [facility] (COGENTIN) 7-09 by mouth ity o f 2 mg tablet 00:00: at [place] [address] bedtime. [facility] citalopram Yes [id number] 40mg Take 1 [facility] (CELEXA) 40 7-09 by mouth ity of mg tablet 00:00: daily. [facility] benztropine Yes [id number] 2mg Take 1 [facility] (COGENTIN) 7-09 by mouth ity o f 2 mg tablet 00:00: at [place] 00 bedtime. [facility] citalopram Yes [id number] 40mg Take 1 [facility] (CELEXA) 40 7-09 by mouth ity of mg tablet 00:00: daily. Medical [place] benztropine Yes [id number] 2mg Take 1 [facility] (COGENTIN) 7-09 by mouth ity o f 2 mg tablet 00:00: at [place] [address] bedtime. [facility] citalopram Yes [id number] 40mg Take 1 [facility] (CELEXA) 40 7-09 by mouth ity of mg tablet 00:00: daily. [facility] benztropine Yes [id number] 2mg Take 1 [facility] (COGENTIN) 7-09 by mouth ity o f 2 mg tablet 00:00: at [place] [address] bedtime. [facility] citalopram Yes [id number] 40mg Take 1 [facility] (CELEXA) 40 7-09 by mouth ity of mg tablet 00:00: daily. [facility] benztropine Yes [id number] 2mg Take 1 [facility] (COGENTIN) 7-09 by mouth ity o f 2 mg tablet 00:00: at [place] [address] bedtime. [facility] citalopram Yes [id number] 40mg Take 1 [facility] (CELEXA) 40 7-09 by mouth ity of mg tablet 00:00: daily. [facility] benztropine Yes [id number] 2mg Take 1 [facility] (COGENTIN) 7-09 by mouth ity o f 2 mg tablet 00:00: at [place] 00 bedtime. [facility] citalopram Yes [id number] 40mg Take 1 [facility] (CELEXA) 40 7-09 by mouth ity of mg tablet 00:00: daily. [facility] benztropine Yes [id number] 2mg Take 1 [facility] (COGENTIN) 7-09 by mouth ity o f 2 mg tablet 00:00: at [place] [address] bedtime. [facility] citalopram Yes [id number] 40mg Take 1 [facility] (CELEXA) 40 7-09 by mouth ity of mg tablet 00:00: daily. [facility] benztropine Yes [id number] 2mg Take 1 [facility] (COGENTIN) 7-09 by mouth ity o f 2 mg tablet 00:00: at [place] [address] bedtime. [facility] citalopram Yes [id number] 40mg Take 1 [facility] (CELEXA) 40 7-09 by mouth ity of mg tablet 00:00: daily. [facility] benztropine Yes [id number] 2mg Take 1 [facility] (COGENTIN) 7-09 by mouth ity o f 2 mg tablet 00:00: at [place] [address] bedtime. [facility] citalopram Yes [id number] 40mg Take 1 [facility] (CELEXA) 40 7-09 by mouth ity of mg tablet 00:00: daily. [facility] benztropine Yes [id number] 2mg Take 1 [facility] (COGENTIN) 7-09 by mouth ity o f 2 mg tablet 00:00: at [place] [address] bedtime. [facility] citalopram Yes [id number] 40mg Take 1 [facility] (CELEXA) 40 7-09 by mouth ity of mg tablet 00:00: daily. [facility] benztropine Yes [id number] 2mg Take 1 [facility] (COGENTIN) 7-09 by mouth ity o f 2 mg tablet 00:00: at [place] [address] bedtime. [facility] citalopram Yes [id number] 40mg Take 1 [facility] (CELEXA) 40 7-09 by mouth ity of mg tablet 00:00: daily. [facility] benztropine Yes [id number] 2mg Take 1 [facility] (COGENTIN) 7-09 by mouth ity o f 2 mg tablet 00:00: at [place] [address] bedtime. [facility] citalopram Yes [id number] 40mg Take 1 [facility] (CELEXA) 40 7-09 by mouth ity of mg tablet 00:00: daily. [facility] benztropine Yes [id number] 2mg Take 1 [facility] (COGENTIN) 7-09 by mouth ity o f 2 mg tablet 00:00: at [place] 00 bedtime. [facility] citalopram Yes [id number] 40mg Take 1 [facility] (CELEXA) 40 7-09 by mouth ity of mg tablet 00:00: daily. Medical [place] benztropine Yes [id number] 2mg Take 1 [facility] (COGENTIN) 7-09 by mouth ity o f 2 mg tablet 00:00: at [place] [address] bedtime. [facility] citalopram Yes [id number] 40mg Take 1 [facility] (CELEXA) 40 7-09 by mouth ity of mg tablet 00:00: daily. [facility] benztropine Yes [id number] 2mg Take 1 [facility] (COGENTIN) 7-09 by mouth ity o f 2 mg tablet 00:00: at [place] [address] bedtime. [facility] citalopram Yes [id number] 40mg Take 1 [facility] (CELEXA) 40 7-09 by mouth ity of mg tablet 00:00: daily. [facility] benztropine Yes [id number] 2mg Take 1 Tab [facility] (COGENTIN) 7-09 by mouth ity o f 2 mg tablet 00:00: at [place] [address] bedtime. [facility] citalopram 0 Yes [id number] 40mg Take 1 [facility] (CELEXA) 40 7-09 by mouth ity of mg tablet 00:00: daily. [facility] benztropine Yes [id number] 2mg Take 1 Tab [facility] (COGENTIN) 7-09 by mouth ity o f 2 mg tablet 00:00: at [place] [address] bedtime. [facility] citalopram 2014-0 Yes [id number] 40mg Take 1 [facility] (CELEXA) 40 7-09 by mouth ity of mg tablet 00:00: daily. [place] 00 [facility] pravastatin 0 Yes [id number] 40mg Take 1 Tab [facility] (PRAVACHOL) 6-11 by mouth ity of 40 mg 00:00: at [place] tablet 00 bedtime. [facility] pravastatin Yes [id number] 40mg Take 1 Tab [facility] (PRAVACHOL) 6-11 by mouth ity of 40 mg 00:00: at [place] tablet 00 bedtime. [facility] pravastatin Yes [id number] 40mg Take 1 Tab [facility] (PRAVACHOL) 6-11 by mouth ity of 40 mg 00:00: at [place] tablet 00 bedtime. [facility] pravastatin Yes [id number] 40mg Take 1 Tab [facility] (PRAVACHOL) 6-11 by mouth ity of 40 mg 00:00: at [place] tablet 00 bedtime. [facility] pravastatin Yes [id number] 40mg Take 1 Tab [facility] (PRAVACHOL) 6-11 by mouth ity of 40 mg 00:00: at [place] tablet 00 bedtime. [facility] pravastatin Yes [id number] 40mg Take 1 Tab [facility] (PRAVACHOL) 6-11 by mouth ity of 40 mg 00:00: at [place] tablet 00 bedtime. [facility] pravastatin Yes [id number] 40mg Take 1 Tab [facility] (PRAVACHOL) 6-11 by mouth ity of 40 mg 00:00: at [place] tablet 00 bedtime. [facility] pravastatin Yes [id number] 40mg Take 1 Tab [facility] (PRAVACHOL) 6-11 by mouth ity of 40 mg 00:00: at [place] tablet 00 bedtime. [facility] pravastatin Yes [id number] 40mg Take 1 Tab [facility] (PRAVACHOL) 6-11 by mouth ity of 40 mg 00:00: at [place] tablet 00 bedtime. [facility] pravastatin 2013- Yes [id number] 40mg Take 1 Tab [facility] (PRAVACHOL) 6-11 by mouth ity of 40 mg 00:00: at [place] tablet 00 bedtime. [facility] pravastatin Yes [id number] 40mg Take 1 Tab [facility] (PRAVACHOL) 6-11 by mouth ity of 40 mg 00:00: at [place] tablet 00 bedtime. [facility] pravastatin 2013-0 Yes [id number] 40mg Take 1 Tab [facility] (PRAVACHOL) 6-11 by mouth ity of 40 mg 00:00: at [place] tablet 00 bedtime. [facility] pravastatin 2013-0 Yes [id number] 40mg Take 1 Tab [facility] (PRAVACHOL) 6-11 by mouth ity of 40 mg 00:00: at [place] tablet 00 bedtime. [facility] pravastatin 2013-0 Yes [id number] 40mg Take 1 Tab [facility] (PRAVACHOL) 6-11 by mouth ity of 40 mg 00:00: at [place] tablet 00 bedtime. [facility] pravastatin 2013-0 Yes [id number] 40mg Take 1 Tab [facility] (PRAVACHOL) 6-11 by mouth ity of 40 mg 00:00: at [place] tablet 00 bedtime. [facility] pravastatin 2013-0 Yes [id number] 40mg Take 1 Tab [facility] (PRAVACHOL) 6-11 by mouth ity of 40 mg 00:00: at [place] tablet 00 bedtime. [facility] pravastatin 2013-0 Yes [id number] 40mg Take 1 Tab [facility] (PRAVACHOL) 6-11 by mouth ity of 40 mg 00:00: at [place] tablet 00 bedtime. [facility] pravastatin 2013-0 Yes [id number] 40mg Take 1 Tab [facility] (PRAVACHOL) 6-11 by mouth ity of 40 mg 00:00: at [place] tablet 00 bedtime. [facility] pravastatin 2013-0 Yes [id number] 40mg Take 1 Tab [facility] (PRAVACHOL) 6-11 by mouth ity of 40 mg 00:00: at [place] tablet 00 bedtime. [facility] pravastatin 2013-0 Yes [id number] 40mg Take 1 Tab [facility] (PRAVACHOL) 6-11 by mouth ity of 40 mg 00:00: at [place] tablet 00 bedtime. [facility] pravastatin 2013-0 Yes [id number] 40mg Take 1 Tab [facility] (PRAVACHOL) 6-11 by mouth ity of 40 mg 00:00: at [place] tablet 00 bedtime. [facility] pravastatin 2013-0 Yes [id number] 40mg Take 1 Tab [facility] (PRAVACHOL) 6-11 by mouth ity of 40 mg 00:00: at [place] tablet 00 bedtime. [facility] Immunizations Ordered Filled Immunization Date Status Comments [facility] e Immunization Name Name Influenza Virus 2018-08-11 Completed Universit y of Vaccine Quad .5 mL 00:00:00 [place] [facility] 6+ MO Branch Influenza Virus 2018-08-11 Completed Universit y of Vaccine Quad .5 mL 00:00:00 [place] [facility] IM 6+ MO Branch Influenza Virus 2018-08-11 Completed Universit y of Vaccine Quad .5 mL 00:00:00 [place] [facility] IM 6+ MO Branch Influenza Virus 2018-08-11 Completed Universit y of Vaccine Quad .5 mL 00:00:00 [place] [facility] IM 6+ MO Branch Influenza Virus 2018-08-11 Completed Universit y of Vaccine Quad .5 mL 00:00:00 [place] [facility] IM 6+ MO Branch Influenza Virus 2018-08-11 Completed Universit y of Vaccine Quad .5 mL 00:00:00 [place] [facility] 6+ MO Branch Influenza Virus 2018-08-11 Completed Universit y of Vaccine Quad .5 mL 00:00:00 [place] [facility] IM 6+ MO Branch Influenza Virus 2018-08-11 Completed Universit y of Vaccine Quad .5 mL 00:00:00 [place] [facility] 6+ MO Branch Influenza Virus 2018-08-11 Completed Universit y of Vaccine Quad .5 mL 00:00:00 [place] [facility] IM 6+ MO Branch Influenza Virus 2018-08-11 Completed Universit y of Vaccine Quad .5 mL 00:00:00 [place] [facility] 6+ MO Branch Influenza Virus 2018-08-11 Completed Universit y of Vaccine Quad .5 mL 00:00:00 [place] [facility] IM 6+ MO Branch Influenza Virus 2018-08-11 Completed Universit y of Vaccine Quad .5 mL 00:00:00 [place] [facility] IM 6+ MO Branch Influenza Virus 2018-08-11 Completed Universit y of Vaccine Quad .5 mL 00:00:00 [place] [facility] IM 6+ MO Branch Influenza Virus 2018-08-11 Completed Universit y of Vaccine Quad .5 mL 00:00:00 [place] [facility] IM 6+ MO Branch Influenza Virus 2018-08-11 Completed Universit y of Vaccine Quad .5 mL 00:00:00 [place] [facility] IM 6+ MO Branch Influenza Virus 2018-08-11 Completed Universit y of Vaccine Quad .5 mL 00:00:00 [place] [facility] IM 6+ MO Branch Influenza Virus 2018-08-11 Completed Universit y of Vaccine Quad .5 mL 00:00:00 [facility] IM 6+ MO Branch Influenza Virus 2018-08-11 Completed Universit y of Vaccine Quad .5 mL 00:00:00 [place] [facility] IM 6+ MO Branch Influenza Virus 2018-08-11 Completed Universit y of Vaccine Quad .5 mL 00:00:00 [facility] IM 6+ MO Branch Influenza Virus 2018-08-11 Completed Universit y of Vaccine Quad .5 mL 00:00:00 [facility] IM 6+ MO Branch Influenza Virus 2018-08-11 Completed Universit y of Vaccine Quad .5 mL 00:00:00 [facility] IM 6+ MO Branch Influenza Virus 2018-08-11 Completed Universit y of Vaccine Quad .5 mL 00:00:00 [facility] 6+ MO Branch Influenza Virus 2017-10-26 Completed Universit y of Vaccine 00:00:00 [facility] Pneumococcal 2017-10-26 Completed University o f Polysaccharide, 00:00:00 [place] [facility] ical PPSV23 (PNEUMOVAX) Branch Influenza Virus 2017-10-26 Completed Universit y of Vaccine 00:00:00 [facility] Pneumococcal 2017-10-26 Completed University o f Polysaccharide, 00:00:00 [place] [facility] ical PPSV23 (PNEUMOVAX) Branch Influenza Virus 2017-10-26 Completed Universit y of Vaccine 00:00:00 [facility] Pneumococcal 2017-10-26 Completed University o f Polysaccharide, 00:00:00 [place] [facility] PPSV23 (PNEUMOVAX) Branch Influenza Virus 2017-10-26 Completed Universit y of Vaccine 00:00:00 [facility] Pneumococcal 2017-10-26 Completed University o f Polysaccharide, 00:00:00 [place] [facility] ical PPSV23 (PNEUMOVAX) Branch Influenza Virus 2017-10-26 Completed Universit y of Vaccine 00:00:00 [facility] Pneumococcal 2017-10-26 Completed University o f Polysaccharide, 00:00:00 [place] [facility] ical PPSV23 (PNEUMOVAX) Branch Influenza Virus 2017-10-26 Completed Universit y of Vaccine 00:00:00 [facility] Pneumococcal 2017-10-26 Completed University o f Polysaccharide, 00:00:00 [place] [facility] PPSV23 (PNEUMOVAX) Branch Influenza Virus 2017-10-26 Completed Universit y of Vaccine 00:00:00 [facility] Pneumococcal 2017-10-26 Completed University o f Polysaccharide, 00:00:00 [place] [facility] ical PPSV23 (PNEUMOVAX) Branch Influenza Virus 2017-10-26 Completed Universit y of Vaccine 00:00:00 [facility] Pneumococcal 2017-10-26 Completed University o f Polysaccharide, 00:00:00 [place] [facility] PPSV23 (PNEUMOVAX) Branch Influenza Virus 2017-10-26 Completed Universit y of Vaccine 00:00:00 [facility] Pneumococcal 2017-10-26 Completed University o f Polysaccharide, 00:00:00 [place] [facility] PPSV23 (PNEUMOVAX) Branch Influenza Virus 2017-10-26 Completed Universit y of Vaccine 00:00:00 [facility] Pneumococcal 2017-10-26 Completed University o f Polysaccharide, 00:00:00 [place] [facility] PPSV23 (PNEUMOVAX) Branch Influenza Virus 2017-10-26 Completed Universit y of Vaccine 00:00:00 [facility] Pneumococcal 2017-10-26 Completed University o f Polysaccharide, 00:00:00 [place] [facility] PPSV23 (PNEUMOVAX) Branch Influenza Virus 2017-10-26 Completed Universit y of Vaccine 00:00:00 [facility] Pneumococcal 2017-10-26 Completed University o f Polysaccharide, 00:00:00 [facility] ical PPSV23 (PNEUMOVAX) Branch Influenza Virus 2017-10-26 Completed Universit y of Vaccine 00:00:00 [facility] Pneumococcal 2017-10-26 Completed University o f Polysaccharide, 00:00:00 [facility] ical PPSV23 (PNEUMOVAX) Branch Influenza Virus 2017-10-26 Completed Universit y of Vaccine 00:00:00 [facility] Pneumococcal 2017-10-26 Completed University o f Polysaccharide, 00:00:00 [place] [facility] PPSV23 (PNEUMOVAX) Branch Influenza Virus 2017-10-26 Completed Universit y of Vaccine 00:00:00 [facility] Pneumococcal 2017-10-26 Completed University o f Polysaccharide, 00:00:00 [place] [facility] PPSV23 (PNEUMOVAX) Branch Influenza Virus 2017-10-26 Completed Universit y of Vaccine 00:00:00 [facility] Pneumococcal 2017-10-26 Completed University o f Polysaccharide, 00:00:00 [place] [facility] PPSV23 (PNEUMOVAX) Branch Influenza Virus 2017-10-26 Completed Universit y of Vaccine 00:00:00 [facility] Pneumococcal 2017-10-26 Completed University o f Polysaccharide, 00:00:00 [place] [facility] PPSV23 (PNEUMOVAX) Branch Influenza Virus 2017-10-26 Completed Universit y of Vaccine 00:00:00 [facility] Pneumococcal 2017-10-26 Completed University o f Polysaccharide, 00:00:00 [place] [facility] ical PPSV23 (PNEUMOVAX) Branch Influenza Virus 2017-10-26 Completed Universit y of Vaccine 00:00:00 [facility] Pneumococcal 2017-10-26 Completed University o f Polysaccharide, 00:00:00 [place] [facility] ical PPSV23 (PNEUMOVAX) Branch Influenza Virus 2017-10-26 Completed Universit y of Vaccine 00:00:00 [facility] Pneumococcal 2017-10-26 Completed University o f Polysaccharide, 00:00:00 [place] [facility] PPSV23 (PNEUMOVAX) Branch Influenza Virus 2017-10-26 Completed Universit y of Vaccine 00:00:00 [facility] Pneumococcal 2017-10-26 Completed University o f Polysaccharide, 00:00:00 [place] [facility] PPSV23 (PNEUMOVAX) Branch Influenza Virus 2017-10-26 Completed Universit y of Vaccine 00:00:00 [facility] Pneumococcal 2017-10-26 Completed University o f Polysaccharide, 00:00:00 [place] [facility] PPSV23 (PNEUMOVAX) [place] Influenza Virus 2016-05-09 Completed Universit y of Vaccine 00:00:00 [facility] Influenza Virus 2016-05-09 Completed Universit y of Vaccine 00:00:00 [facility] Influenza Virus 2016-05-09 Completed Universit y of Vaccine 00:00:00 [facility] Influenza Virus 2016-05-09 Completed Universit y of Vaccine 00:00:00 [facility] Influenza Virus 2016-05-09 Completed Universit y of Vaccine 00:00:00 [facility] Influenza Virus 2016-05-09 Completed Universit y of Vaccine 00:00:00 [facility] Influenza Virus 2016-05-09 Completed Universit y of Vaccine 00:00:00 [facility] Influenza Virus 2016-05-09 Completed Universit y of Vaccine 00:00:00 [facility] Influenza Virus 2016-05-09 Completed Universit y of Vaccine 00:00:00 [facility] Influenza Virus 2016-05-09 Completed Universit y of Vaccine 00:00:00 [facility] Influenza Virus 2016-05-09 Completed Universit y of Vaccine 00:00:00 [facility] Influenza Virus 2016-05-09 Completed Universit y of Vaccine 00:00:00 [facility] Influenza Virus 2016-05-09 Completed Universit y of Vaccine 00:00:00 [facility] Influenza Virus 2016-05-09 Completed Universit y of Vaccine 00:00:00 [facility] Influenza Virus 2016-05-09 Completed Universit y of Vaccine 00:00:00 [facility] Influenza Virus 2016-05-09 Completed Universit y of Vaccine 00:00:00 [facility] Influenza Virus 2016-05-09 Completed Universit y of Vaccine 00:00:00 [facility] Influenza Virus 2016-05-09 Completed Universit y of Vaccine 00:00:00 [facility] Influenza Virus 2016-05-09 Completed Universit y of Vaccine 00:00:00 [facility] Influenza Virus 2016-05-09 Completed Universit y of Vaccine 00:00:00 [facility] Influenza Virus 2016-05-09 Completed Universit y of Vaccine 00:00:00 [facility] Influenza Virus 2016-05-09 Completed Universit y of Vaccine 00:00:00 [facility] Td 2006-11-16 Completed University of 00:00:00 [facility] Td 2006-11-16 Completed University of 00:00:00 [facility] Td 2006-11-16 Completed University of 00:00:00 [facility] Td 2006-11-16 Completed University of 00:00:00 [facility] Td 2006-11-16 Completed University of 00:00:00 [facility] Td 2006-11-16 Completed University of 00:00:00 [facility] Td 2006-11-16 Completed University of 00:00:00 [facility] Td 2006-11-16 Completed University of 00:00:00 [facility] Td 2006-11-16 Completed University of 00:00:00 [facility] Td 2006-11-16 Completed University of 00:00:00 [facility] Td 2006-11-16 Completed University of 00:00:00 [facility] Td 2006-11-16 Completed University of 00:00:00 [facility] Td 2006-11-16 Completed University of 00:00:00 [facility] Td 2006-11-16 Completed University of 00:00:00 [facility] Td 2006-11-16 Completed University of 00:00:00 [facility] Td 2006-11-16 Completed University of 00:00:00 [place] [facility] Td 2006-11-16 Completed University of 00:00:00 [place] [facility] Td 2006-11-16 Completed University of 00:00:00 [place] [facility] Td 2006-11-16 Completed University of 00:00:00 [place] [facility] Td 2006-11-16 Completed University of 00:00:00 [place] [facility] Td 2006-11-16 Completed University of 00:00:00 [place] [facility] Td 2006-11-16 Completed University of 00:00:00 [facility] Vital Signs Vital Name Observation Time Observation Value Comments Source Body temperature 2021-02-01 19:33:[address] [facility] Body height 2021-02-01 19:33:00 165.1 cm Universi ty [facility] Body weight 2021-02-01 19:33:00 90.266 kg [facility] BMI 2021-02-01 19:33:00 33.12 kg/m2 [facility] Body temperature 2020-11-21 15:37:[address] [facility] Body height 2020-11-21 15:37:00 165.1 cm Universi ty [facility] Body weight 2020-11-21 15:37:00 91.989 kg [facility] BMI 2020-11-21 15:37:00 33.75 kg/m2 [facility] Procedures Procedure Date / Time Performing Clinician Source Performed BI US GUIDED CORE BREAST 2021-10-19 15:54:25 [facility] BIOPSY [facility] BI ULTRASOUND BREAST 2021-09-17 20:49:30 Requisition, Paper [facility] COMPLETE [facility] BI DIAGNOSTIC 2021-09-17 20:06:54 Requisition, Paper [facility] TOMOSYNTHESIS [facility] Medical [facility] h ASSIGNMENT OF BENEFITS 2021-09-17 18:57:21 Doctor Unassigned, No [facility] Medical Branch ASSIGNMENT OF BENEFITS 2021-08-27 17:40:18 Doctor Unassigned, No [facility] Branch ASSIGNMENT OF BENEFITS 2021-04-03 14:38:13 Doctor Unassigned, No [facility] Branch ASSIGNMENT OF BENEFITS 2021-02-01 18:02:47 Doctor Unassigned, No [facility] Name Medical Branch REFERRAL- 2020-11-13 06:01:00 Doctor Unassigned, No [facility] REQUEST/RESPONSE Name Medical Branch Encounters Start End Encounter Admission Attending Care Care Encounter Source Date/Time Date/Time Type Type Clinicians Facility Department ID 2021-10-19 2021-10-19 [facility] Radiology [facility] [id number] Univers 08:50:54 23:59:00 Encounter [place] [id number] ity [place] [id number] [id number] [place] [id number] [place] 2021-10-19 2021-10-19 [facility] Radiology [facility] [id number] Univers 08:50:39 23:59:00 Encounter [place] [id number] [place] [id number] [address] 2021-10-19 2021-10-19 Outpatient R RADIOLOGY [facility] [id number] Univers 00:00:00 23:59:00 ity of [facility] 2021-10-19 2021-10-19 Outpatient R RADIOLOGY [facility] [id number] Univers 00:00:00 00:00:00 [id number] ity of [facility] 2021-09-17 2021-09-17 [facility] Radiology [facility] 1.2.840.114 [id number] Univers 14:01:36 23:59:00 Encounter [place] [id number] [place] [id number] [address] 2021-09-17 2021-09-17 Outpatient R RADIOLOGY [facility] [id number] Univers 13:58:59 14:00:00 ity of [facility] 2021-09-17 2021-09-17 [facility] Radiology [facility] 1.2.840.114 [id number] Univers 13:58:59 14:00:00 Encounter [place] [id number] [place] [id number] [facility] [address] 2021-09-17 2021-09-17 Outpatient R RADIOLOGY [facility] [id number] Univers 00:00:00 00:00:00 [id number] ity of [facility] 2021-09-17 2021-09-17 Orders Doctor COLE[place] 1.2.840.114 [id number] Univers 00:00:00 00:00:00 Only Unassigned, SURAJ 350.1.13.10 ity of [place] [facility] 4.2.7.2.686 [place] [id number] [facility] [address] 2021-08-27 2021-08-27 [facility] Radiology [facility] 1.2.840.114 [id number] Univers 12:43:08 23:59:00 Encounter [employer] 350.1.13.10 ity of [place] [facility] [id number] [facility] [address] 2021-08-27 2021-08-27 [facility] Radiology [facility] 1.2.840.114 [id number] Univers 12:30:00 12:42:00 Encounter [employer] 350.1.13.10 ity of [place] [facility]7[place]2[facility] [id number] [facility] [address] 2021-08-27 2021-08-27 Outpatient R [facility] [id number] Univers 00:00:00 00:00:00 [id number] ity of [facility] 2021-08-27 2021-08-27 Outpatient R RADIOLOGY [facility] [id number] Univers 00:00:00 00:00:00 ity of [facility] 2021-08-27 2021-08-27 Orders Doctor COLEEN 1.2.840.114 [id number] Univers 00:00:00 00:00:00 Only Unassigned, SURAJ 350.1.13.10 ity of [place] [facility] 4.2.7.2.686 [place] [id number] [facility] [address] 2021-07-02 2021-07-02 Outpatient R RADIOLOGY [facility] [id number] Univers 10:00:00 10:00:00 [id number] ity of [facility] 2021-06-14 2021-06-14 Outpatient R DAX [facility] [id number] Univers 00:00:00 00:00:00 ANGEL [id number] ity of [facility] 2021-06-07 2021-06-07 Outpatient R DAX [facility] [id number] Univers 10:00:00 10:00:00 ANGEL [id number] ity of [facility] 2021-06-07 2021-06-07 [facility] [id number] Univers 00:00:00 00:00:00 ANGEL ity [facility] 2021-05-06 2021-05-06 [facility] 1.2.840.114 [id number] Univers 00:00:00 00:00:00 Lea SHEEHAN 350.1.13.10 i ty of [facility] [place] [id number] [facility] [address] 2021-04-03 2021-04-03 Hospital Radiology [facility] 1.2.840.114 [id number] Univers 09:39:20 23:59:00 Encounter Y[place] 350.1.13.10 ity of [place] 4.2.7[address] [facility] [id number] [facility] [address] 2021-04-03 2021-04-03 Outpatient R RADIOLOGY [facility] [id number] Univers 09:40:00 09:40:00 [id number] ity of [facility] 2021-04-03 2021-04-03 Outpatient R RADIOLOGY [facility] [id number] Univers 00:00:00 00:00:00 ity of [facility] 2021-04-03 2021-04-03 Orders Doctor COLEEN 1.2.840.114 [id number] Univers 00:00:00 00:00:00 Only Unassigned, SURAJ 350.1.13.10 ity of [place] [facility] 4.2.7.2.686 [place] [id number] [facility] [address] 2021-02-01 2021-02-01 [facility] [id number] Univers 14:30:00 14:30:00 LEA bally of [facility] 2021-02-01 2021-02-01 Ancillary Geovanna Lopez [facility] 1.2.840.1 [id number] Univers 13:05:26 13:50:26 Visit Natasha AlvaradoTANY 350.1.13.1 0 ity of [facility] [place] [id number] [facility] [address] 2021-02-01 2021-02-01 Office Makayla [facility] 1.2.840.114 [id number] Univers 13:05:43 13:20:43 Visit Lea SHEEHAN 350.1.13.10 i ty of [facility] [place] [id number] [facility] [address] 2021-02-01 2021-02-01 Outpatient R [facility] [id number] Univers 13:00:00 13:00:00 [id number] ity [facility] 2021-02-01 2021-02-01 Orders Doctor COLEEN 1.2.840.114 [id number] Univers 00:00:00 00:00:00 Only Unassigned, SURAJ 350.1.13.10 ity of [place] [facility] 4.2.7.2.686 [place] [id number] [facility] [address] 2021-01-26 2021-01-26 Patient Oskar [facility] 1.2.840.114 [id number] Univers 00:00:00 00:00:00 Outreach Tomasz CERNA 350.1.13.10 i ty of [facility] [place]7.2.[place] [id number] [place] [address] 2021-01-23 2021-01-23 Outpatient R [facility] [id number] Univers 09:45:00 09:45:00 [id number] ity [facility] 2021-01-02 2021-01-02 Outpatient R [facility] [id number] Univers 09:00:00 09:00:00 [id number] ity [facility] 2021-01-02 2021-01-02 Outpatient R [facility] [id number] Univers 09:00:00 09:00:00 ity [facility] 2020-11-21 2020-11-21 Outpatient Adel[facility] [id number] Univers 09:45:00 09:45:00 LEA [id number] ity [facility] 2020-11-21 2020-11-21 Outpatient Adelso [facility] [id number] Univers 09:45:00 09:45:00 LEA [facility] 2020-11-21 2020-11-21 Office [facility] 1.2.840.114 [id number] Univers 08:50:03 09:05:03 Visit Lea SHEEHAN 350.1.13.10 i ty of [facility] [place] [id number] [address] 2020-11-21 2020-11-21 [facility]phone [facility] 1.2.840.114 [id number] Univers 00:00:00 00:00:00 Lea SISSY 350.1.13.10 i ty of [facility] [place] [id number] [facility] [address] 2020-11-13 2020-11-13 Orders Doctor COLEEN 1.2.840.114 [id number] Univers 00:00:00 00:00:00 Only Unassigned, SURAJ 350.1.13.10 ity of [place] [facility] 4.2.7.2.686 [place] [id number] [place] [address] Branch Results This patient has no known results.
[2021-11-06 22:43] LABS: Urine Blood Trace-intact (Negative); Urine Glucose 1+ (Negative); Urine Protein 1+ (Negative); Urine Specific Gravity 1.015 (1.005-1.030)
[2021-11-06 22:55] LABS: Absolute Lymphocytes (CBC) 1.5 K/uL (0.7-4.9); Basophils % 0.3 % (0-1.3); Lymphocytes % 17.3 % (15.3-44.8); MPV 6.5 fL (7.6-11.3); RBC Red Blood Cell Count 4.16 M/uL (3.86-4.86)
[2021-11-06 22:55] LABS: Urine Bacteria 20-50 /HPF (<20)
[2021-11-06 22:56] LABS: Urine RBC <5 /HPF (NONE SEEN); Urine Urothelial Cells <5 /HPF (NONE SEEN)
[2021-11-06 23:03] LABS: Potassium 3.4 mmol/L (3.5-5.1)
[2021-11-06] MEDS ORDERED: CIPROFLOXACIN HCL 500 MG TAB ONE (23:30)
--- NOTE | 2021-11-07 00:55 | ER ---
Nurse's Notes [facility] Name: Mary Jane Jacobsen Age: 56 yrs Sex: Female : 1965 Arrival Date: 11/06/2021 Time: 21:23 Bed 18 Private MD: Diagnosis: UTI/ Urinary tract infection, site not specified;Low back pain Presentation: 11/06 21:59 Chief complaint: Patient states: My lower back is hurting, both sides. Pain began ld1 yesterday and is worse today. Pt reports feeling a "gush" on the right side of lower back yesterday evening \\T\\ now she is in pain. Coronavirus screen: At this time, the client does not indicate any symptoms associated with coronavirus-19. Ebola Screen: No symptoms or risks identified at this time. Initial Sepsis Screen: Does the patient meet any 2 criteria? No. Patient's initial sepsis screen is negative. Does the patient have a suspected source of infection? No. Patient's initial sepsis screen is negative. Risk Assessment: Do you want to hurt yourself or someone else? Patient reports no desire to harm self or others. Onset of symptoms was November 06, 2021. 21:59 Method Of Arrival: Ambulatory ld1 21:59 Acuity: IMLLY 3 ld1 Triage Assessment: 22:01 General: Appears in no apparent distress. comfortable, Behavior is cooperative. Pain: ld1 Complains of pain in back. Respiratory: Airway is patent Respiratory effort is even, unlabored. Historical: - Allergies: 22:01 NKDA; ld1 - Home Meds: 22:01 Unable to obtain [Active]; ld1 - PMHx: 22:01 Bipolar disorder; Diabetes - NIDDM; High Cholesterol; Hypertension; Seizures; ld1 Schizophrenia; - PSHx: 22:01 None; ld1 - Immunization history:: Adult Immunizations up to date, Client reports receiving the 2nd dose of the Covid vaccine. - Social history:: Smoking status: Patient denies any tobacco usage or history of. Patient/guardian denies using alcohol, street drugs. - Family history:: not pertinent. - Hospitalizations: : No recent hospitalization is reported. Screenin:56 Abuse screen: Denies threats or abuse. Denies injuries from another. Nutritional kd3 screening: No deficits noted. Tuberculosis screening: No symptoms or risk factors identified. Fall Risk IV access (20 points). Vital Signs: 21:59 BP 172 / 99; Pulse 109; Resp 19; Temp 98.4(O); Pulse Ox 99% on R/A; Weight 84.37 kg; ld1 Height 5 ft. 6 in. (167.64 cm); Pain 10/10; 12 01:13 BP 168 / 89; Pulse 98; Resp 16; Pulse Ox 100% on R/A; kd3 11/06 21:59 Body Mass Index 30.02 (84.37 kg, 167.64 cm) ld1 ED Course: 11/06 21:23 Patient arrived in ED. ja2 22:01 Triage completed. ld1 22:01 Arm band placed on left wrist. ld1 22:15 Lyndon Causey MD is Attending Physician. rn 22:29 Julita Meléndez RN is Primary Nurse. kd3 22:37 Inserted saline lock: 22 gauge in left antecubital area, using aseptic technique. Blood ds4 collected. 23:56 Patient has correct armband on for positive identification. Bed in low position. Call kd3 light in reach. Side rails up X 1. 11/07 00:08 CT Stone Protocol In Process Unspecified. EDMS 01:13 No provider procedures requiring assistance completed. IV discontinued, bleeding kd3 controlled, No redness/swelling at site. Pressure dressing applied. Administered Medications: 11/06 23:33 Drug: Cipro (ciprofloxacin) 500 mg Route: PO; kd3 11/07 01:14 Follow up: Response: No adverse reaction kd3 Outcome: 00:55 Discharge ordered by . rn 01:13 Discharged to home ambulatory. kd3 01:13 Condition: stable 01:13 Discharge instructions given to patient, Instructed on discharge instructions, follow up and referral plans. medication usage, Demonstrated understanding of instructions, follow-up care, medications. 01:14 Patient left the ED. kd3 Addendum: 11/10/2021 07:07 Addendum: Culture Results: Positive urine culture. No further action required. Bacteria e b sensitive to prescribed antibiotic. Signatures: Dispatcher [employer] EDMS Lyndon Causey MD MD rn Swanson, Donovan ds4 Dixie Rich Lauren, RN RN ld1 SixtoBrianda Kyli, RN RN kd3
--- NOTE | 2021-11-07 00:55 | EDPHYS ---
Physician Documentation [facility] Name: Mary Jane Jacobsen Age: 56 yrs Sex: Female : 1965 Arrival Date: 11/06/2021 Time: 21:23 Bed 18 Private MD: ED Physician Lyndon Causey HPI: 11/06 22:32 This 56 yrs old Female presents to ER via Ambulatory with complaints of Low rn Back Pain. 22:32 The patient presents with pain that is acute. The symptoms are located in the low back. rn The pain does not radiate. The problem was sustained when bending over, when lifting. Onset: The symptoms/episode began/occurred this morning. Modifying factors: The patient symptoms are alleviated by remaining still, the patient symptoms are aggravated by any movement, bending, lifting. Associated signs and symptoms: Pertinent positives: none Pertinent negatives: abdominal pain, chest pain, constipation, dysuria, fever, hematuria, incontinence, nausea, numbness, tingling, urinary retention. Severity of symptoms: At their worst the symptoms were mild, in the emergency department the symptoms are unchanged. The patient has not experienced similar symptoms in the past. The patient has been recently seen by a physician:. Patient reports was lifting a family member today a small child, when felt low back pain and a gush. She is concerned that it may have injured her kidneys because she was told she has severe kidney disease by her PCP and was given an appointment to follow-up with the plumber assistant. Patient reports diabetes and hypertension for years and was diagnosed with chronic kidney disease and anemia of chronic disease recently and told needs to follow-up with nephrology. She is concerned because her follow-up visit is not for a few more weeks and then had back pain today. She wants to make sure her kidneys were not injured. Historical: - Allergies: 22:01 NKDA; ld1 - Home Meds: 22:01 Unable to obtain [Active]; ld1 - PMHx: 22:01 Bipolar disorder; Diabetes - NIDDM; High Cholesterol; Hypertension; Seizures; ld1 Schizophrenia; - PSHx: 22:01 None; ld1 - Immunization history:: Adult Immunizations up to date, Client reports receiving the 2nd dose of the Covid vaccine. - Social history:: Smoking status: Patient denies any tobacco usage or history of. Patient/guardian denies using alcohol, street drugs. - Family history:: not pertinent. - Hospitalizations: : No recent hospitalization is reported. ROS: 22:32 Constitutional: Negative for fever, chills, and weight loss, Eyes: Negative for injury, rn pain, redness, and discharge, Neck: Negative for injury, pain, and swelling, Cardiovascular: Negative for chest pain, palpitations, and edema, Respiratory: Negative for shortness of breath, cough, wheezing, and pleuritic chest pain, Abdomen/GI: Negative for abdominal pain, nausea, vomiting, diarrhea, and constipation, Back: Positive for low back pain : Negative for injury, bleeding, discharge, and swelling, MS/Extremity: Negative for injury and deformity, Skin: Negative for injury, rash, and discoloration, Neuro: Negative for headache, weakness, numbness, tingling, and seizure. Exam: 22:32 Constitutional: This is a well developed, well nourished patient who is awake, alert, rn and in no acute distress. Head/Face: Normocephalic, atraumatic. Eyes: Periorbital areas with no swelling, redness, or edema. Cardiovascular: Tachycardic, regular. No pulse deficits. Respiratory: No increased work of breathing, no retractions or nasal flaring. Abdomen/GI: Soft, non-tender Back: No spinal tenderness. No costovertebral tenderness. Skin: Warm, dry MS/ Extremity: Pulses equal, no cyanosis. Neurovascular intact. Full, normal range of motion. Equal circumference. Neuro: Awake and alert, GCS 15, oriented to person, place, time, and situation. Cranial nerves II-XII grossly intact. Motor strength 5/5 in all extremities. Sensory grossly intact. Cerebellar exam normal. Normal gait. Vital Signs: 21:59 BP 172 / 99; Pulse 109; Resp 19; Temp 98.4(O); Pulse Ox 99% on R/A; Weight 84.37 kg; ld1 Height 5 ft. 6 in. (167.64 cm); Pain 10; 11/07 01:13 BP 168 / 89; Pulse 98; Resp 16; Pulse Ox 100% on R/A; kd3 11/06 21:59 Body Mass Index 30.02 (84.37 kg, 167.64 cm) ld1 MDM: 11/06 22:15 Patient medically screened. rn 12/23 00:54 Differential diagnosis: strain, Herniated disc UTI, CKD. Data reviewed: vital signs, rn nurses notes, lab test result(s), radiologic studies, doppler, and as a result, I will discharge patient. Counseling: I had a detailed discussion with the patient and/or guardian regarding: the historical points, exam findings, and any diagnostic results supporting the discharge/admit diagnosis, lab results, radiology results, the need for outpatient follow up, to return to the emergency department if symptoms worsen or persist or if there are any questions or concerns that arise at home. Response to treatment: the patient's symptoms have mildly improved after treatment, and as a result, I will discharge patient. Special discussion: I discussed with the patient/guardian in detail that at this point there is no indication for admission to the hospital. It is understood, however, that if the symptoms persist or worsen the patient needs to return immediately for re-evaluation. 11/06 22:23 Order name: CBC with Diff; Complete Time: 23:21 rn 11/06 22:23 Order name: Basic Metabolic Panel; Complete Time: 23:21 rn 11/06 22:23 Order name: Urine Microscopic Only; Complete Time: 23:21 rn 11/06 22:23 Order name: CT Stone Protocol rn 11/06 22:42 Order name: Urine Dipstick-Ancillary; Complete Time: 23:21 EDMS 11/06 22:56 Order name: Urine Culture EDDE 11/06 22:23 Order name: IV Start; Complete Time: 22:37 rn 11/06 22:23 Order name: Urine Dipstick-Ancillary (obtain specimen); Complete Time: 22:44 rn Administered Medications: 11/06 23:33 Drug: Cipro (ciprofloxacin) 500 mg Route: PO; kd3 11/07 01:14 Follow up: Response: No adverse reaction kd3 Disposition Summary: 11/07/21 00:55 Discharge Ordered Location: Home rn Problem: new rn Symptoms: have improved rn Condition: Stable rn Diagnosis - UTI/ Urinary tract infection, site not specified rn - Low back pain rn Followup: rn - With: Private Physician - When: As needed - Reason: Recheck today's complaints, Re-evaluation by your physician Discharge Instructions: - Discharge Summary Sheet rn - Acute Back Pain, Adult rn - Urinary Tract Infection, Adult rn Forms: - Medication Reconciliation Form rn - Thank You Letter rn - Antibiotic case management rn - Prescription Opioid Use rn Prescriptions: - Cipro 500 mg Oral Tablet - take 1 tablet by ORAL route every 12 hours for 7 days; 14 tablet; Refills: 0, rn Product Selection Permitted Signatures: Dispatcher [employer] Lyndon Stokes MD MD rn Dibbern, Lauren RN RN ld1 Julita Meléndez RN RN kd3
[2021-11-07 01:26] VITALS: TEMP 98.4
[2021-11-07 01:28] VITALS: BP 168/89; O2SAT 100
--- NOTE | 2021-11-07 12:23 | RAD REPORT ---
EXAM DESCRIPTION: CT - Stone Protocol - 11/07/2021 5:31 am CLINICAL HISTORY: 56 years, Female, back pain COMPARISON: 08/21/2018. TECHNIQUE: Multiple transaxial tomograms of the abdomen and pelvis were performed from the lung base s to the symphysis pubis 3 mm slice thickness at 3 mm interval reconstruction, without administration of IV and oral contrast. Multiplanar reformats in the sagittal and coronal plane were generated and reviewed. This exam was performed according to our departmental dose-optimization protocol, which includes auto mated exposure control, adjustment of the mA and/or kV according to patient size and/or use of iterat regina reconstruction technique. FINDINGS: The lack of IV and oral contrast limits evaluation of solid organs, subtle lesions cannot be excluded. The lung bases demonstrate to be clear. Minimal dependent atelectatic changes. Small trace pericardia l effusion. Grossly the unopacified liver is prominent. Otherwise the liver, gallbladder, pancreas, spleen and ad renal glands demonstrate to be within normal limits, no significant focal lesions were identified. The kidneys demonstrate grossly unremarkable. There is no evidence for nephrolithiasis and/or hydro nephrosis. No focal masses were demonstrated. The ureters displays normal appearance with normal caliber, no hydroureter was seen. Grossly the unopacified stomach, small bowel and large bowel demonstrate to be within normal limits. There is no evidence for bowel dilatation/or free air. The appendix is normal. The left site colon is decompressed. The urinary bladder demonstrate to be within normal limits. The uterus is absent. There are no adnexa l masses. The aorta demonstrate minimal atheromatous plaque formation at the aortic bifurcation. Th ere is no retroperitoneal lymphadenopathy. There is no evidence for ascites. The rest of the soft t issue demonstrate to be grossly unremarkable. IMPRESSION: No evidence for nephrolithiasis and/or hydronephrosis. Small trace pericardial effusion. Hepatomegaly. Status post hysterectomy. 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 The interpreting r adiologist is fully responsible for the content of the report.
== END 2021-11-07 01:14 | disposition home or self-care (01) ==
LOC: ER 21:18
DX: N39.0 Urinary tract infection, site not specified (principal); I10 Essential (primary) hypertension
CPT/HCPCS: 36415; 74176; 76377; 80048; 81003; 81015; 85025; 87077; 87086; 87088; 87186; 99284

== ENCOUNTER 2022-08-18 21:02 | Observation (INO) | payer OTHER ==
--- OUTSIDE RECORDS SUMMARY | 2022-08-18 21:47 | XMS REPORT | Continuity of Care Document ---
:1965 Author Organization [facility] t Address [address] [place] [address] Care Team Providers Name Role Phone Sharpless Primary Care Physician Radiology Attending Clinician Unavailable RADIOLOGY Attending Clinician Unavailable Doctor Unassigned, [place] Attending Clinician Unavailable ANGEL VERDUZCO Attending Clinician Unavailable Lea Benavides MD Attending Clinician LEA BENAVIDES Attending Clinician Unavailable Geovnana Biswas Attending Clinician Jenny PHD, Natasha Collins Attending Clinician Tomasz Schmitt DO Attending Clinician Payers Payer Name Policy Type Policy Number Effective Date Expiration Date S ource Problems Condition Condition Condition Status Onset Resolution Last Treating Co mments Source Name Details Category Date Date Treatment Clinician Date Surgery, Surgery, Disease Active Unive rs elective elective -25 ity of 00:00: [place] [address] Medical Branch Obesity Obesity Disease Active Univers (BMI (BMI 9-21 ity of 30-39.9) 30-39.9) 00:00: [place] [address] Medical Branch Adnexal Adnexal Disease Active Overview: Univ ers mass mass 9-17 Formattin ity of 00:00: g of this [place] [address] note Medical might be Branch different from the original. Added automatic ally from request for surgery [id number] Type 2 Type 2 Disease Active [facility] diabetes diabetes 1-08 ity of mellitus mellitus 00:00: [place] [address] Medical Branch Hypokalemi Hypokalemi Disease Active [facility] Hypomagnes Hypomagnes Disease Active [facility] emia [facility] Essential Essential Disease Active [facility]ensi [facility]-08 [facility] Center Metabolic Metabolic Disease Active [facility] DM DM Disease Active [facility] ketoacidos ketoacidos 05-08 [facility] [facility] is type is type 00:00: Medical II, II, 00 Center uncontroll uncontroll ed ed Bipolar Bipolar Disease Active [facility] affective affective 05-08 [facility] disorder disorder 00:00: Medica l in in 00 Center remission remission DKA DKA Disease Active [facility] (diabetic (diabetic 05-07 [facility] ketoacidos ketoacidos 00:00: Me dical es) es) 00 Center Depression Depression Disease Active Overview : Univers Formattin ity of g of this [place] note Medical might be Branch different from the original. denies si/hi Hyperchole Hyperchole Disease [facility] Disease Active U nivers on on ity of [facility] Mental Mental Disease Active Univers disorder disorder ity of [facility] Allergies, Adverse Reactions, Alerts Allergy Allergy Status Severity Reaction(s) Onset Inactive Treating Comm ents Source Name Type Date Date Clinician NO KNOWN Drug Active Univers ALLERGIE Class ity of S [facility] Social History Social Habit Start Date Stop Date Quantity Comments Source Exposure to Not sure [facility] SARS-CoV-2 [facility] (event) Branch Alcohol intake 2021-02-01 2021-02-01 Current University of 00:00:00 00:00:00 non-drinker of [facility] alcohol Branch (finding) Tobacco use and 2014-04-25 2014-04-25 Never used Universit y of exposure 00:00:00 00:00:00 [facility] Sex Assigned At [address] [facility] 00:00[facility]00 [facility]00 [facility] Center Smoking Status Start Date Stop Date Source Never smoker [facility] Medications Ordered Filled Start Stop Current Ordering Indication Dosage Frequency Signature Comments Components Source Medication Medication Date Date Medication? Clinician (SIG) Name Name Dose 2-0 No 1000 Unknown 07-03 00:00: 00 Dose 2022-0 No 1000 Unknown 07-03 00:00: 00 Dose 2022-0 No Unknown 06-27 00:00: 00 Dose 2022-0 No Unknown 06-27 00:00: 00 Dose 2022-0 No Unknown 06-27 00:00: 00 Dose 2022-0 No Unknown 06-25 00:00: 00 Dose 2022-0 No 150 Unknown 06-25 00:00: 00 Dose 2022-0 No Unknown 06-25 00:00: 00 Dose 2022-0 No 150 Unknown 06-25 00:00: 00 Dose 2022-0 No Unknown 06-25 00:00: 00 Dose 2022-0 No 150 Unknown 06-25 00:00: 00 Dose 2022-0 No 200 Unknown 06-24 00:00: 00 Dose 2022-0 No 150 Unknown 06-24 00:00: 00 Dose 2022-0 No 40 Unknown 06-24 00:00: 00 Dose 2022-0 No Unknown 06-24 00:00: 00 TAKE 1 2-0 No 10 TABLET 06-24 DAILY. 00:00: 00 Dose 2022-0 No 150 Unknown 06-24 00:00: 00 Dose 2022-0 No Unknown 06-24 00:00: 00 Dose 2022-0 No 200 Unknown 06-24 00:00: 00 Dose 2022-0 No 200 Unknown 06-24 00:00: 00 Dose 2022-0 No 150 Unknown 06-24 00:00: 00 Dose 2022-0 No 40 Unknown 06-24 00:00: 00 Dose 2022-0 No Unknown 06-24 00:00: 00 TAKE 1 2-0 No 10 TABLET - DAILY. 00:00: 00 Dose 2022-0 No 150 Unknown 06-24 00:00: 00 Dose 2022-0 No Unknown 06-24 00:00: 00 Dose 2022-0 No 200 Unknown 06-24 00:00: 00 Dose 2022-0 No 200 Unknown 06-24 00:00: 00 Dose 2022-0 No 150 Unknown 06-24 00:00: 00 Dose 2022-0 No 40 Unknown 06-24 00:00: 00 Dose 2022-0 No Unknown 06-24 00:00: 00 TAKE 1 2022-0 No 10 TABLET 06-24 DAILY. 00:00: 00 Dose 2022-0 No 150 Unknown 06-24 00:00: 00 Dose 2022-0 No Unknown 06-24 00:00: 00 Dose 2022-0 No 200 Unknown 06-24 00:00: 00 Dose 2022-0 No 200 Unknown 06-24 00:00: 00 Dose 2022-0 No 150 Unknown 06-24 00:00: 00 Dose 2022-0 No 40 Unknown 06-24 00:00: 00 Dose 2022-0 No Unknown 06-24 00:00: 00 TAKE 1 2022-0 No 10 TABLET 06-24 DAILY. 00:00: 00 Dose 2022-0 No 150 Unknown 06-24 00:00: 00 Dose 2022-0 No Unknown 06-24 00:00: 00 Dose 2022-0 No 200 Unknown 06-24 00:00: 00 &lt 2022-0 No 2 8- 00:00: 00 &lt 2022-0 No 2 - 00:00: 00 &lt 2022-0 No 2 06-23 00:00: 00 &lt 2022-0 No 2 06-23 00:00: 00 Dose 2022-0 No 2 Unknown 06-18 00:00: 00 Dose 2022-0 No Unknown 06-18 00:00: 00 Dose 2022-0 No 2 Unknown 06-18 00:00: 00 Dose 2022-0 No Unknown 06-18 00:00: 00 Dose 2022-0 No 2 Unknown 06-18 00:00: 00 Dose 2022-0 No Unknown 06-18 00:00: 00 Dose 2022-0 No 2 Unknown 06-18 00:00: 00 Dose 2022-0 No Unknown 06-18 00:00: 00 Dose 2022-0 No 200 Unknown 06-13 00:00: 00 Dose 2022-0 No Unknown 06-13 00:00: 00 TAKE 1 2022-0 No 2 TABLET BY 06-13 MOUTH TWICE 00:00: DAILY 00 NEEDED FOR SHAKING OR TONGUE MOVEMENTS Dose 2022-0 No 40 Unknown 06-13 00:00: 00 Dose 2022-0 No Unknown 06-13 00:00: 00 Dose 2022-0 No 200 Unknown 06-13 00:00: 00 &lt 2022-0 No 10 06-13 00:00: 00 TAKE 1 2-0 No 40 TABLET BY 06-13 MOUTH ONCE 00:00: DAILY FOR 00 RESTLESSNES S &lt 2022-0 No 2 06-13 00:00: 00 Dose 2022-0 No Unknown 06-13 00:00: 00 Dose 2022-0 No Unknown 06-13 00:00: 00 Dose 2022-0 No Unknown 06-13 00:00: 00 &lt 2022-0 No 4 06-13 00:00: 00 &lt 2022-0 No 2 06-13 00:00: 00 Dose 2-0 No Unknown 06-13 00:00: 00 Dose 2-0 No 150 Unknown 06-13 00:00: 00 TAKE 2 2-0 No 4 TABLETS BY 06-13 MOUTH ONCE 00:00: DAILY IN 00 THE MORNING , THEN TAKE 2 TABLETS AT BEDTIME &lt 2022-0 No 2 06-13 00:00: 00 Dose 2022-0 No 150 Unknown 06-13 00:00: 00 Dose 2022-0 No Unknown 06-13 00:00: 00 Dose 2022-0 No 200 Unknown 06-13 00:00: 00 Dose 2022-0 No Unknown 06-13 00:00: 00 TAKE 1 2-0 No 2 TABLET BY 06-13 MOUTH TWICE 00:00: DAILY 00 NEEDED FOR SHAKING OR TONGUE MOVEMENTS Dose 2-0 No 40 Unknown 06-13 00:00: 00 Dose 2022-0 No Unknown 06-13 00:00: 00 Dose 2022-0 No 200 Unknown 06-13 00:00: 00 &lt 2022-0 No 10 06-13 00:00: 00 TAKE 1 2021-0 No 40 TABLET BY 06-13 MOUTH ONCE 00:00: DAILY FOR 00 RESTLESSNES S &lt 2022-0 No 2 06-13 00:00: 00 Dose 2022-0 No Unknown 06-13 00:00: 00 Dose 2022-0 No Unknown 06-13 00:00: 00 Dose 2022-0 No Unknown 06-13 00:00: 00 &lt 2022-0 No 4 06-13 00:00: 00 &lt 2022-0 No 2 06-13 00:00: 00 Dose 2022-0 No Unknown 06-13 00:00: 00 Dose 2022-0 No 150 Unknown 06-13 00:00: 00 TAKE 2 2-0 No 4 TABLETS BY 06-13 MOUTH ONCE 00:00: DAILY IN 00 THE MORNING , THEN TAKE 2 TABLETS AT BEDTIME &lt 2022-0 No 2 06-13 00:00: 00 Dose 2022-0 No 150 Unknown 06-13 00:00: 00 Dose 2022-0 No Unknown 06-13 00:00: 00 Dose 2022-0 No 200 Unknown 06-13 00:00: 00 Dose 2022-0 No Unknown 06-13 00:00: 00 TAKE 1 2-0 No 2 TABLET BY 06-13 MOUTH TWICE 00:00: DAILY 00 NEEDED FOR SHAKING OR TONGUE MOVEMENTS Dose 2-0 No 40 Unknown 06-13 00:00: 00 Dose 2022-0 No Unknown 06-13 00:00: 00 Dose 2022-0 No 200 Unknown 06-13 00:00: 00 &lt 2022-0 No 10 06-13 00:00: 00 TAKE 1 2-0 No 40 TABLET BY 06-13 MOUTH ONCE 00:00: DAILY FOR 00 RESTLESSNES S &lt 2-0 No 2 06-13 00:00: 00 Dose 2-0 No Unknown 06-13 00:00: 00 Dose 2022-0 No Unknown 06-13 00:00: 00 Dose 2022-0 No Unknown 06-13 00:00: 00 &lt 2022-0 No 4 06-13 00:00: 00 &lt 2022-0 No 2 06-13 00:00: 00 Dose 2022-0 No Unknown 06-13 00:00: 00 Dose 2022-0 No 150 Unknown 06-13 00:00: 00 TAKE 2 2-0 No 4 TABLETS BY 06-13 MOUTH ONCE 00:00: DAILY IN 00 THE MORNING , THEN TAKE 2 TABLETS AT BEDTIME &lt 2022-0 No 2 06-13 00:00: 00 Dose 2022-0 No 150 Unknown 06-13 00:00: 00 Dose 2022-0 No Unknown 06-13 00:00: 00 Dose 2022-0 No 200 Unknown 06-13 00:00: 00 Dose 2022-0 No Unknown 06-13 00:00: 00 TAKE 1 2-0 No 2 TABLET BY 06-13 MOUTH TWICE 00:00: DAILY 00 NEEDED FOR SHAKING OR TONGUE MOVEMENTS Dose 2-0 No 40 Unknown 06-13 00:00: 00 Dose 2022-0 No Unknown 06-13 00:00: 00 Dose 2022-0 No 200 Unknown 06-13 00:00: 00 &lt 2022-0 No 10 06-13 00:00: 00 TAKE 1 2021-0 No 40 TABLET BY 06-13 MOUTH ONCE 00:00: DAILY FOR 00 RESTLESSNES S &lt 2022-0 No 2 06-13 00:00: 00 Dose 2-0 No Unknown 06-13 00:00: 00 Dose 2-0 No Unknown 06-13 00:00: 00 Dose 2-0 No Unknown 06-13 00:00: 00 &lt 2022-0 No 4 06-13 00:00: 00 &lt 2022-0 No 2 06-13 00:00: 00 Dose 2022-0 No Unknown 06-13 00:00: 00 Dose 2022-0 No 150 Unknown 06-13 00:00: 00 TAKE 2 2-0 No 4 TABLETS BY 06-13 MOUTH ONCE 00:00: DAILY IN 00 THE MORNING , THEN TAKE 2 TABLETS AT BEDTIME &lt 2-0 No 2 06-13 00:00: 00 Dose 2-0 No 150 Unknown 06-13 00:00: 00 Dose 2022-0 No Unknown 06-13 00:00: 00 Dose 2022-0 No 40 Unknown 06-12 00:00: 00 Dose 2022-0 No Unknown 06-12 00:00: 00 TAKE 1 2-0 No 40 TABLET BY 06-12 MOUTH ONCE 00:00: DAILY FOR 00 RESTLESSNES S Dose 2021-0 No Unknown 06-12 00:00: 00 &lt 2022-0 No 150 06-12 00:00: 00 Dose 2022-0 No Unknown 06-12 00:00: 00 Dose 2022-0 No 40 Unknown 06-12 00:00: 00 Dose 2022-0 No 200 Unknown 06-12 00:00: 00 &lt 2022-0 No 2 06-12 00:00: 00 Dose 2022-0 No Unknown 06-12 00:00: 00 Dose 2022-0 No Unknown 06-12 00:00: 00 Dose 2022-0 No 10 Unknown 06-12 00:00: 00 Dose 2022-0 No Unknown 06-12 00:00: 00 TAKE 1 TO 2 2022-0 No 50 TABLETS BY - MOUTH AT 00:00: BEDTIME 00 NEEDED FOR SLEEP Dose 2022-0 No Unknown 06-12 00:00: 00 Dose 2022-0 No 200 Unknown 06-12 00:00: 00 TAKE 1 2-0 No 40 TABLET BY 06-12 MOUTH ONCE 00:00: DAILY FOR 00 RESTLESSNES S Dose 2022-0 No 2 Unknown 06-12 00:00: 00 &lt 2022-0 No 250 06-12 00:00: 00 Dose 2022-0 No 40 Unknown 06-12 00:00: 00 Dose 2022-0 No 10 Unknown 06-12 00:00: 00 Dose 2022-0 No 150 Unknown 06-12 00:00: 00 Dose 2022-0 No 40 Unknown 06-12 00:00: 00 Dose 2022-0 No Unknown 06-12 00:00: 00 TAKE 1 2-0 No 40 TABLET BY 06-12 MOUTH ONCE 00:00: DAILY FOR 00 RESTLESSNES S Dose 2022-0 No Unknown 06-12 00:00: 00 &lt 2022-0 No 150 06-12 00:00: 00 Dose 2022-0 No Unknown 06-12 00:00: 00 Dose 2022-0 No 40 Unknown 06-12 00:00: 00 Dose 2022-0 No 200 Unknown 06-12 00:00: 00 &lt 2022-0 No 2 06-12 00:00: 00 Dose 2022-0 No Unknown 06-12 00:00: 00 Dose 2022-0 No Unknown 06-12 00:00: 00 Dose 2022-0 No 10 Unknown 06-12 00:00: 00 Dose 2022-0 No Unknown 06-12 00:00: 00 TAKE 1 TO 2 2-0 No 50 TABLETS BY - MOUTH AT 00:00: BEDTIME 00 NEEDED FOR SLEEP Dose 2022-0 No Unknown 06-12 00:00: 00 Dose 2022-0 No 200 Unknown 06-12 00:00: 00 TAKE 1 2022-0 No 40 TABLET BY - MOUTH ONCE 00:00: DAILY FOR 00 RESTLESSNES S Dose 2022-0 No 2 Unknown 06-12 00:00: 00 &lt 2022-0 No 250 06-12 00:00: 00 Dose 2022-0 No 40 Unknown 06-12 00:00: 00 Dose 2022-0 No 10 Unknown 06-12 00:00: 00 Dose 2022-0 No 150 Unknown 06-12 00:00: 00 Dose 2022-0 No 40 Unknown 06-12 00:00: 00 Dose 2022-0 No Unknown 06-12 00:00: 00 TAKE 1 2022-0 No 40 TABLET BY 06-12 MOUTH ONCE 00:00: DAILY FOR 00 RESTLESSNES S Dose 2022-0 No Unknown 06-12 00:00: 00 &lt 2022-0 No 150 06-12 00:00: 00 Dose 2022-0 No Unknown 06-12 00:00: 00 Dose 2022-0 No 40 Unknown 06-12 00:00: 00 Dose 2022-0 No 200 Unknown 06-12 00:00: 00 &lt 2022-0 No 2 06-12 00:00: 00 Dose 2022-0 No Unknown 06-12 00:00: 00 Dose 2022-0 No Unknown 06-12 00:00: 00 Dose 2022-0 No 10 Unknown 06-12 00:00: 00 Dose 2022-0 No Unknown 06-12 00:00: 00 TAKE 1 TO 2 2-0 No 50 TABLETS BY - MOUTH AT 00:00: BEDTIME 00 NEEDED FOR SLEEP Dose 2022-0 No Unknown 06-12 00:00: 00 Dose 2022-0 No 200 Unknown 06-12 00:00: 00 TAKE 1 2-0 No 40 TABLET BY 06-12 MOUTH ONCE 00:00: DAILY FOR 00 RESTLESSNES S Dose 2022-0 No 2 Unknown 06-12 00:00: 00 &lt 2022-0 No 250 06-12 00:00: 00 Dose 2022-0 No 40 Unknown 06-12 00:00: 00 Dose 2022-0 No 10 Unknown 06-12 00:00: 00 Dose 2022-0 No 150 Unknown 06-12 00:00: 00 Dose 2022-0 No 40 Unknown 06-12 00:00: 00 Dose 2022-0 No Unknown 06-12 00:00: 00 TAKE 1 2-0 No 40 TABLET BY 06-12 MOUTH ONCE 00:00: DAILY FOR 00 RESTLESSNES S Dose 2022-0 No Unknown 06-12 00:00: 00 &lt 2022-0 No 150 06-12 00:00: 00 Dose 2022-0 No Unknown 06-12 00:00: 00 Dose 2022-0 No 40 Unknown 06-12 00:00: 00 Dose 2022-0 No 200 Unknown 06-12 00:00: 00 &lt 2022-0 No 2 06-12 00:00: 00 Dose 2022-0 No Unknown 06-12 00:00: 00 Dose 2022-0 No Unknown 06-12 00:00: 00 Dose 2022-0 No 10 Unknown 06-12 00:00: 00 Dose 2022-0 No Unknown 06-12 00:00: 00 TAKE 1 TO 2 2-0 No 50 TABLETS BY 06-12 MOUTH AT 00:00: BEDTIME 00 NEEDED FOR SLEEP Dose 2022-0 No Unknown 06-12 00:00: 00 Dose 2022-0 No 200 Unknown 06-12 00:00: 00 TAKE 1 2-0 No 40 TABLET BY 06-12 MOUTH ONCE 00:00: DAILY FOR 00 RESTLESSNES S Dose 2022-0 No 2 Unknown 06-12 00:00: 00 &lt 2022-0 No 250 06-12 00:00: 00 Dose 2022-0 No 40 Unknown 06-12 00:00: 00 Dose 2022-0 No 10 Unknown 06-12 00:00: 00 Dose 2022-0 No 150 Unknown 06-12 00:00: 00 Dose 2022-0 No 200 Unknown 06-10 00:00: 00 Dose 2022-0 No 200 Unknown 06-10 00:00: 00 Dose 2022-0 No 200 Unknown 06-10 00:00: 00 Dose 2022-0 No 200 Unknown 06-10 00:00: 00 Dose 2022-0 No 200 Unknown 05-22 00:00: 00 Dose 2022-0 No 10 Unknown 05-22 00:00: 00 Dose 2022-0 No Unknown 05-22 00:00: 00 Dose 2022-0 No 200 Unknown 05-22 00:00: 00 Dose 2022-0 No 10 Unknown 05-22 00:00: 00 Dose 2022-0 No Unknown 05-22 00:00: 00 Dose 2022-0 No 200 Unknown 05-22 00:00: 00 Dose 2022-0 No 10 Unknown 05-22 00:00: 00 Dose 2022-0 No Unknown 05-22 00:00: 00 Dose 2022-0 No 200 Unknown 05-22 00:00: 00 Dose 2022-0 No 10 Unknown 05-22 00:00: 00 Dose 2022-0 No Unknown 05-22 00:00: 00 &lt 2022-0 No 6-22 00:00: 00 &lt 2022-0 No 6-22 00:00: 00 &lt 2022-0 No 6-22 00:00: 00 &lt 2022-0 No 6-22 00:00: 00 &lt 2022-0 No 6-22 00:00: 00 &lt 2022-0 No 6-22 00:00: 00 &lt 2022-0 No 6-22 00:00: 00 &lt 2022-0 No 6-22 00:00: 00 &lt 2022-0 No 6-22 00:00: 00 &lt 2022-0 No 6-22 00:00: 00 &lt 2022-0 No 6-22 00:00: 00 &lt 2022-0 No 6-22 00:00: 00 &lt 2022-0 No 6-22 00:00: 00 &lt 2022-0 No 6-22 00:00: 00 &lt 2022-0 No 6-22 00:00: 00 &lt 2022-0 No 6-22 00:00: 00 &lt 2022-0 No 6-22 00:00: 00 &lt 2022-0 No 6-22 00:00: 00 &lt 2022-0 No 6-22 00:00: 00 &lt 2022-0 No 6-22 00:00: 00 &lt 2022-0 No 6-22 00:00: 00 &lt 2022-0 No 6-22 00:00: 00 &lt 2022-0 No 6-22 00:00: 00 &lt 2022-0 No 6-22 00:00: 00 &lt 2022-0 No 6-22 00:00: 00 &lt 2022-0 No 6-22 00:00: 00 &lt 2022-0 No 6-22 00:00: 00 &lt 2022-0 No 6-22 00:00: 00 fluconazole 2022-0 No 1mg 150 mg 6-21 tablet 00:00: 00 TAKE 2 2022-0 No TABLETS BY 6-21 MOUTH IN 00:00: THE MORNING 00 2 TABLETS AT BEDTIME TAKE 1 2022-0 No TABLET BY 6-21 MOUTH TWICE 00:00: DAILY 00 NEEDED FOR SHAKING OR TONGUE MOVEMENTS TAKE 1 2022-0 No TABLET BY 6-21 MOUTH IN 00:00: THE MORNING 00 , THEN TAKE 2 TABLETS AT BEDTIME &lt 2022-0 No 6-21 00:00: 00 fluconazole 2022-0 No 1mg 150 mg 6-21 tablet 00:00: 00 TAKE 2 2022-0 No TABLETS BY 6-21 MOUTH IN 00:00: THE MORNING 00 2 TABLETS AT BEDTIME TAKE 1 2022-0 No TABLET BY 6-21 MOUTH TWICE 00:00: DAILY 00 NEEDED FOR SHAKING OR TONGUE MOVEMENTS TAKE 1 2022-0 No TABLET BY 6-21 MOUTH IN 00:00: THE MORNING 00 , THEN TAKE 2 TABLETS AT BEDTIME &lt 2022-0 No 6-21 00:00: 00 fluconazole 2022-0 No 1mg 150 mg 6-21 tablet 00:00: 00 TAKE 2 2022-0 No TABLETS BY 6-21 MOUTH IN 00:00: THE MORNING 00 2 TABLETS AT BEDTIME TAKE 1 2022-0 No TABLET BY 6-21 MOUTH TWICE 00:00: DAILY 00 NEEDED FOR SHAKING OR TONGUE MOVEMENTS TAKE 1 2022-0 No TABLET BY 6-21 MOUTH IN 00:00: THE MORNING 00 , THEN TAKE 2 TABLETS AT BEDTIME &lt 2022-0 No 6-21 00:00: 00 fluconazole 2022-0 No 1mg 150 mg 6-21 tablet 00:00: 00 TAKE 2 2022-0 No TABLETS BY 6-21 MOUTH IN 00:00: THE MORNING 00 2 TABLETS AT BEDTIME TAKE 1 2022-0 No TABLET BY 6-21 MOUTH TWICE 00:00: DAILY 00 NEEDED FOR SHAKING OR TONGUE MOVEMENTS TAKE 1 2022-0 No TABLET BY 6-21 MOUTH IN 00:00: THE MORNING 00 , THEN TAKE 2 TABLETS AT BEDTIME &lt 2022-0 No 6-21 00:00: 00 Jardiance 2022-0 No 1mg 10 mg 6-17 tablet 00:00: 00 &lt 2022-0 No 6-17 00:00: 00 &lt 2022-0 No 6-17 00:00: 00 Jardiance 2022-0 No 1mg 10 mg 6-17 tablet 00:00: 00 &lt 2022-0 No 6-17 00:00: 00 &lt 2022-0 No 6-17 00:00: 00 Jardiance 2022-0 No 1mg 10 mg 6-17 tablet 00:00: 00 &lt 2022-0 No 6-17 00:00: 00 &lt 2022-0 No 6-17 00:00: 00 Jardiance 2022-0 No 1mg 10 mg 6-17 tablet 00:00: 00 &lt 2022-0 No 6-17 00:00: 00 &lt 2022-0 No 6-17 00:00: 00 lisinopril 2022-0 No 1mg 40 mg 6-12 tablet 00:00: 00 &lt 2022-0 No 6-12 00:00: 00 lisinopril 2022-0 No 1mg 40 mg 6-12 tablet 00:00: 00 &lt 2022-0 No 6-12 00:00: 00 lisinopril 2022-0 No 1mg 40 mg 6-12 tablet 00:00: 00 &lt 2022-0 No 6-12 00:00: 00 lisinopril 2022-0 No 1mg 40 mg 6-12 tablet 00:00: 00 &lt 2022-0 No 6-12 00:00: 00 Invokana 2022-0 No 1mg 100 mg 6-06 tablet 00:00: 00 &lt 2022-0 No 6-06 00:00: 00 &lt 2022-0 No 6-06 00:00: 00 &lt 2022-0 No 6-06 00:00: 00 &lt 2022-0 No 6-06 00:00: 00 &lt 2022-0 No 6-06 00:00: 00 &lt 2022-0 No 6-06 00:00: 00 &lt 2022-0 No 6-06 00:00: 00 &lt 2022-0 No 6-06 00:00: 00 &lt 2022-0 No 6-06 00:00: 00 &lt 2022-0 No 6-06 00:00: 00 &lt 2022-0 No 6-06 00:00: 00 &lt 2022-0 No 6-06 00:00: 00 Invokana 2022-0 No 1mg 100 mg 6-06 tablet 00:00: 00 &lt 2022-0 No 6-06 00:00: 00 &lt 2022-0 No 6-06 00:00: 00 &lt 2022-0 No 6-06 00:00: 00 &lt 2022-0 No 6-06 00:00: 00 &lt 2022-0 No 6-06 00:00: 00 &lt 2022-0 No 6-06 00:00: 00 &lt 2022-0 No 6-06 00:00: 00 &lt 2022-0 No 6-06 00:00: 00 &lt 2022-0 No 6-06 00:00: 00 &lt 2022-0 No 6-06 00:00: 00 &lt 2022-0 No 6-06 00:00: 00 &lt 2022-0 No 6-06 00:00: 00 Invokana 2022-0 No 1mg 100 mg 6-06 tablet 00:00: 00 &lt 2022-0 No 6-06 00:00: 00 &lt 2022-0 No 6-06 00:00: 00 &lt 2022-0 No 6-06 00:00: 00 &lt 2022-0 No 6-06 00:00: 00 &lt 2022-0 No 6-06 00:00: 00 &lt 2022-0 No 6-06 00:00: 00 &lt 2022-0 No 6-06 00:00: 00 &lt 2022-0 No 6-06 00:00: 00 &lt 2022-0 No 6-06 00:00: 00 &lt 2022-0 No 6-06 00:00: 00 &lt 2022-0 No 6-06 00:00: 00 &lt 2022-0 No 6-06 00:00: 00 Invokana 2022-0 No 1mg 100 mg 6-06 tablet 00:00: 00 &lt 2022-0 No 6-06 00:00: 00 &lt 2022-0 No 6-06 00:00: 00 &lt 2022-0 No 6-06 00:00: 00 &lt 2022-0 No 6-06 00:00: 00 &lt 2022-0 No 6-06 00:00: 00 &lt 2022-0 No 6-06 00:00: 00 &lt 2022-0 No 6-06 00:00: 00 &lt 2022-0 No 6-06 00:00: 00 &lt 2022-0 No 6-06 00:00: 00 &lt 2022-0 No 6-06 00:00: 00 &lt 2022-0 No 6-06 00:00: 00 &lt 2022-0 No 6-06 00:00: 00 Tricor 48 2022-0 No 1mg mg tablet 5-20 00:00: 00 rosuvastati 2022-0 No 1mg n 40 mg 5-20 tablet 00:00: 00 ezetimibe 2022-0 No 1mg 10 mg 5-20 tablet 00:00: 00 glipizide 2022-0 No 1mg 10 mg 5-20 tablet 00:00: 00 Tricor 48 2022-0 No 1mg mg tablet 5-20 00:00: 00 rosuvastati 2022-0 No 1mg n 40 mg 5-20 tablet 00:00: 00 ezetimibe 2022-0 No 1mg 10 mg 5-20 tablet 00:00: 00 glipizide 2022-0 No 1mg 10 mg 5-20 tablet 00:00: 00 Tricor 48 2022-0 No 1mg mg tablet 5-20 00:00: 00 rosuvastati 2022-0 No 1mg n 40 mg 5-20 tablet 00:00: 00 Dose 2022-0 No Unknown 5-20 00:00: 00 glipizide 2022-0 No 1mg 10 mg 5-20 tablet 00:00: 00 Tricor 48 2022-0 No 1mg mg tablet 5-20 00:00: 00 rosuvastati 2022-0 No 1mg n 40 mg 5-20 tablet 00:00: 00 ezetimibe 2022-0 No 1mg 10 mg 5-20 tablet 00:00: 00 glipizide 2022-0 No 1mg 10 mg 5-20 tablet 00:00: 00 hydrocortis 2022-0 No 1% one 1 % 4-27 topical 00:00: cream 00 rosuvastati 2-0 No 1mg n 40 mg 4-27 tablet 00:00: 00 Tricor 48 2-0 No 1mg mg tablet 03-12 00:00: 00 amlodipine 2022-0 No 1mg 5 mg tablet 03-12 00:00: 00 lisinopril 2022-0 No 1mg 10 mg 4-27 tablet 00:00: 00 fluconazole 2022-0 No 1mg 150 mg 4-27 tablet 00:00: 00 glipizide 2022-0 No 1mg 10 mg 4-27 tablet 00:00: 00 hydrocortis 2022-0 No 1% one 1 % 03-12 topical 00:00: cream 00 rosuvastati 2-0 No 1mg n 40 mg 4-27 tablet 00:00: 00 Tricor 48 2-0 No 1mg mg tablet 03-12 00:00: 00 amlodipine 2022-0 No 1mg 5 mg tablet 03-12 00:00: 00 lisinopril 2022-0 No 1mg 10 mg 4-27 tablet 00:00: 00 fluconazole 2022-0 No 1mg 150 mg 4-27 tablet 00:00: 00 glipizide 2022-0 No 1mg 10 mg 4-27 tablet 00:00: 00 Dose 2022-0 No Unknown - 00:00: 00 rosuvastati 2-0 No 1mg n 40 mg -27 tablet 00:00: 00 Tricor 48 2-0 No 1mg mg tablet 03-12 00:00: 00 amlodipine 2022-0 No 1mg 5 mg tablet 03-12 00:00: 00 lisinopril 2022-0 No 1mg 10 mg 4-27 tablet 00:00: 00 fluconazole 2022-0 No 1mg 150 mg 4-27 tablet 00:00: 00 glipizide 2022-0 No 1mg 10 mg 4-27 tablet 00:00: 00 hydrocortis 2022-0 No 1% one 1 % - topical 00:00: cream 00 rosuvastati 2022-0 No 1mg n 40 mg 4-27 tablet 00:00: 00 Tricor 48 2-0 No 1mg mg tablet 03-12 00:00: 00 amlodipine 2022-0 No 1mg 5 mg tablet 03-12 00:00: 00 lisinopril 2-0 No 1mg 10 mg 4-27 tablet 00:00: 00 fluconazole 2022-0 No 1mg 150 mg 4-27 tablet 00:00: 00 glipizide 2022-0 No 1mg 10 mg 4-27 tablet 00:00: 00 Dose 2022-0 No Unknown 4-22 00:00: 00 Dose 2022-0 No Unknown 4-22 00:00: 00 Dose 2022-0 No Unknown 4-22 00:00: 00 Dose 2022-0 No Unknown 4-22 00:00: 00 Dose 2022-0 No Unknown 4-22 00:00: 00 Dose 2022-0 No Unknown 4-22 00:00: 00 Dose 2-0 No Unknown 4-22 00:00: 00 Dose 2-0 No Unknown 4-22 00:00: 00 Dose 2022-0 No Unknown 4-09 00:00: 00 Dose 2022-0 No Unknown 4-09 00:00: 00 Dose 2022-0 No Unknown 4-09 00:00: 00 Dose 2022-0 No Unknown 4-09 00:00: 00 Dose 2022-0 No Unknown 4-09 00:00: 00 Dose 2022-0 No Unknown 4-09 00:00: 00 Dose 2022-0 No Unknown 4-09 00:00: 00 Dose 2022-0 No Unknown 4-09 00:00: 00 Dose 2022-0 No Unknown 4-09 00:00: 00 Dose 2022-0 No Unknown 4-09 00:00: 00 Dose 2022-0 No Unknown 4-09 00:00: 00 Dose 2022-0 No Unknown 4-09 00:00: 00 Dose 2022-0 No Unknown 4-09 00:00: 00 Dose 2022-0 No Unknown 4-09 00:00: 00 Dose 2022-0 No Unknown 4-09 00:00: 00 Dose 2022-0 No Unknown 4-09 00:00: 00 Dose 2022-0 No Unknown 4-09 00:00: 00 Dose 2022-0 No Unknown 4-09 00:00: 00 Dose 2022-0 No Unknown 4-09 00:00: 00 Dose 2022-0 No Unknown 4-09 00:00: 00 Dose 2022-0 No Unknown 4-09 00:00: 00 Dose 2022-0 No Unknown 4- 00:00: 00 Dose 2-0 No Unknown 4- 00:00: 00 Dose 2-0 No Unknown 4- 00:00: 00 Dose 2-0 No Unknown 4- 00:00: 00 Dose 2-0 No Unknown 4- 00:00: 00 Dose 2022-0 No Unknown 4- 00:00: 00 Dose 2-0 No Unknown 4- 00:00: 00 ProAir HFA 2-0 No 12mcg/a 90 4-06 ctuatio mcg/actuati 00:00: n on aerosol 00 inhaler amoxicillin 2-0 No 1mg 875 4-06 mg-potassiu 00:00: m 00 clavulanate 125 mg tablet ProAir HFA 2021-0 No 12mcg/a 90 4-06 ctuatio mcg/actuati 00:00: n on aerosol 00 inhaler amoxicillin 2-0 No 1mg 875 4-06 mg-potassiu 00:00: m 00 clavulanate 125 mg tablet ProAir HFA 2-0 No 12mcg/a 90 4-06 ctuatio mcg/actuati 00:00: n on aerosol 00 inhaler amoxicillin 2-0 No 1mg 875 4-06 mg-potassiu 00:00: m 00 clavulanate 125 mg tablet ProAir HFA 2-0 No 12mcg/a 90 4-06 ctuatio mcg/actuati 00:00: n on aerosol 00 inhaler amoxicillin 2-0 No 1mg 875 4-06 mg-potassiu 00:00: m 00 clavulanate 125 mg tablet Dose 2-0 No Unknown 3-29 00:00: 00 Dose 2-0 No Unknown 3-29 00:00: 00 Dose 2-0 No Unknown 3-29 00:00: 00 Dose 2-0 No Unknown 3-29 00:00: 00 Dose 2-0 No Unknown 3-19 00:00: 00 fluconazole 2022-0 No 1mg 150 mg 3-19 tablet 00:00: 00 Dose 2022-0 No Unknown 3-19 00:00: 00 Dose 2022-0 No Unknown 3-19 00:00: 00 Dose 2022-0 No Unknown 3-19 00:00: 00 Dose 2022-0 No Unknown 3-19 00:00: 00 Dose 2022-0 No Unknown 3-19 00:00: 00 Dose 2022-0 No Unknown 3-19 00:00: 00 Dose 2022-0 No Unknown 3-19 00:00: 00 Dose 2022-0 No Unknown 3-19 00:00: 00 Dose 2022-0 No Unknown 3-19 00:00: 00 Dose 2022-0 No Unknown 3-19 00:00: 00 Dose 2022-0 No Unknown 3-19 00:00: 00 Dose 2022-0 No Unknown 3-19 00:00: 00 Dose 2022-0 No Unknown 3-19 00:00: 00 Dose 2022-0 No Unknown 3-19 00:00: 00 Dose 2022-0 No Unknown 3-19 00:00: 00 Dose 2022-0 No Unknown 3-19 00:00: 00 Dose 2022-0 No Unknown 3-19 00:00: 00 Dose 2022-0 No Unknown 3-19 00:00: 00 Dose 2022-0 No Unknown 3-19 00:00: 00 Dose 2022-0 No Unknown 3-19 00:00: 00 Dose 2022-0 No Unknown 3-19 00:00: 00 Dose 2022-0 No Unknown 3-19 00:00: 00 Dose 2022-0 No Unknown 3-19 00:00: 00 Dose 2022-0 No Unknown 3-19 00:00: 00 Dose 2022-0 No Unknown 3-19 00:00: 00 Dose 2022-0 No Unknown 3-19 00:00: 00 Dose 2022-0 No Unknown 3-19 00:00: 00 Dose 2022-0 No Unknown 3-19 00:00: 00 Dose 2022-0 No Unknown 3-19 00:00: 00 Dose 2022-0 No Unknown 3-19 00:00: 00 Dose 2022-0 No Unknown 3-19 00:00: 00 Dose 2022-0 No Unknown 3-19 00:00: 00 Dose 2022-0 No Unknown 3-19 00:00: 00 Dose 2022-0 No Unknown 3-19 00:00: 00 Dose 2022-0 No Unknown 3-19 00:00: 00 Dose 2022-0 No Unknown 3-19 00:00: 00 Dose 2022-0 No Unknown 3-19 00:00: 00 Dose 2022-0 No Unknown 3-19 00:00: 00 Dose 2022-0 No Unknown 3-19 00:00: 00 Dose 2022-0 No Unknown 3-19 00:00: 00 Dose 2022-0 No Unknown 3-19 00:00: 00 Dose 2022-0 No Unknown 3-19 00:00: 00 Dose 2022-0 No Unknown 3-19 00:00: 00 Dose 2022-0 No Unknown 3-19 00:00: 00 Dose 2022-0 No Unknown 3-19 00:00: 00 Dose 2022-0 No Unknown 3-19 00:00: 00 Dose 2022-0 No Unknown 3-19 00:00: 00 Dose 2022-0 No Unknown 3-19 00:00: 00 Dose 2022-0 No Unknown 3-19 00:00: 00 Dose 2022-0 No Unknown 3-19 00:00: 00 Dose 2022-0 No Unknown 3-19 00:00: 00 Dose 2022-0 No Unknown 3-19 00:00: 00 Dose 2022-0 No Unknown 3-19 00:00: 00 Dose 2022-0 No Unknown 3-19 00:00: 00 Dose 2022-0 No Unknown 3-19 00:00: 00 Dose 2022-0 No Unknown 3-19 00:00: 00 Dose 2022-0 No Unknown 3-19 00:00: 00 Dose 2022-0 No Unknown 3-19 00:00: 00 Dose 2022-0 No Unknown 3-19 00:00: 00 Dose 2022-0 No Unknown 3-19 00:00: 00 Dose 2022-0 No Unknown 3-19 00:00: 00 Dose 2022-0 No Unknown 3-19 00:00: 00 Dose 2022-0 No Unknown 3-19 00:00: 00 Dose 2022-0 No Unknown 3-19 00:00: 00 Dose 2022-0 No Unknown 3-19 00:00: 00 Dose 2022-0 No Unknown 3-19 00:00: 00 Dose 2022-0 No Unknown 3-19 00:00: 00 Dose 2022-0 No Unknown 3-19 00:00: 00 Dose 2022-0 No Unknown 3-19 00:00: 00 Dose 2022-0 No Unknown 3-19 00:00: 00 Dose 2022-0 No Unknown 3-19 00:00: 00 Dose 2022-0 No Unknown 3-19 00:00: 00 Dose 2022-0 No Unknown 3-19 00:00: 00 Dose 2022-0 No Unknown 3-19 00:00: 00 Dose 2022-0 No Unknown 3-19 00:00: 00 Dose 2022-0 No Unknown 3-19 00:00: 00 Dose 2022-0 No Unknown 3-19 00:00: 00 Dose 2022-0 No Unknown 3-19 00:00: 00 Dose 2022-0 No Unknown 3-19 00:00: 00 Dose 2022-0 No Unknown 3-19 00:00: 00 Dose 2022-0 No Unknown 3-19 00:00: 00 Dose 2022-0 No Unknown 3-19 00:00: 00 Dose 2022-0 No Unknown 3-19 00:00: 00 Dose 2022-0 No Unknown 3-19 00:00: 00 Dose 2022-0 No Unknown 3-19 00:00: 00 Dose 2022-0 No Unknown 3-19 00:00: 00 Dose 2022-0 No Unknown 3-19 00:00: 00 Dose 2022-0 No Unknown 3-19 00:00: 00 Dose 2022-0 No Unknown 3-19 00:00: 00 Dose 2022-0 No Unknown 3-19 00:00: 00 Dose 2022-0 No Unknown 3-19 00:00: 00 Dose 2022-0 No Unknown 3-19 00:00: 00 Dose 2022-0 No Unknown 3-19 00:00: 00 Dose 2022-0 No Unknown 3-19 00:00: 00 Dose 2022-0 No Unknown 3-19 00:00: 00 Dose 2022-0 No Unknown 3-19 00:00: 00 Dose 2022-0 No Unknown 3-19 00:00: 00 Dose 2022-0 No Unknown 3-19 00:00: 00 Dose 2022-0 No Unknown 3-19 00:00: 00 Dose 2022-0 No Unknown 3-19 00:00: 00 Dose 2022-0 No Unknown 3-19 00:00: 00 Dose 2022-0 No Unknown 3-19 00:00: 00 Dose 2022-0 No Unknown 3-19 00:00: 00 Dose 2022-0 No Unknown 3-19 00:00: 00 Dose 2022-0 No Unknown 3-19 00:00: 00 Dose 2022-0 No Unknown 3-19 00:00: 00 Dose 2022-0 No Unknown 3-19 00:00: 00 Dose 2022-0 No Unknown 3-19 00:00: 00 Dose 2022-0 No Unknown 3-19 00:00: 00 Dose 2022-0 No Unknown 3-19 00:00: 00 Dose 2022-0 No Unknown 3-19 00:00: 00 Dose 2022-0 No Unknown 3-19 00:00: 00 Dose 2022-0 No Unknown 3-19 00:00: 00 Dose 2022-0 No Unknown 3-19 00:00: 00 Dose 2022-0 No Unknown 3-19 00:00: 00 Dose 2022-0 No Unknown 3-19 00:00: 00 Dose 2022-0 No Unknown 3-19 00:00: 00 Dose 2022-0 No Unknown 3-19 00:00: 00 Dose 2022-0 No Unknown 3-19 00:00: 00 Dose 2022-0 No Unknown 3-19 00:00: 00 Dose 2022-0 No Unknown 3-19 00:00: 00 Dose 2022-0 No Unknown 3-19 00:00: 00 Dose 2022-0 No Unknown 3-19 00:00: 00 Dose 2022-0 No Unknown 3-19 00:00: 00 Dose 2022-0 No Unknown 3-19 00:00: 00 Dose 2022-0 No Unknown 3-19 00:00: 00 Dose 2022-0 No Unknown 3-19 00:00: 00 Dose 2022-0 No Unknown 3-19 00:00: 00 Dose 2022-0 No Unknown 3-19 00:00: 00 Dose 2022-0 No Unknown 3-19 00:00: 00 Dose 2022-0 No Unknown 3-19 00:00: 00 Dose 2022-0 No Unknown 3-19 00:00: 00 Dose 2022-0 No Unknown 3-19 00:00: 00 Dose 2022-0 No Unknown 3-19 00:00: 00 Dose 2022-0 No Unknown 3-19 00:00: 00 Dose 2022-0 No Unknown 3-19 00:00: 00 Dose 2022-0 No Unknown 3-19 00:00: 00 Dose 2022-0 No Unknown 3-19 00:00: 00 Dose 2022-0 No Unknown 3-19 00:00: 00 Dose 2022-0 No Unknown 3-19 00:00: 00 Dose 2022-0 No Unknown 3-19 00:00: 00 fluconazole 2022-0 No 1mg 150 mg 3-19 tablet 00:00: 00 Dose 2022-0 No Unknown 3-19 00:00: 00 Dose 2022-0 No Unknown 3-19 00:00: 00 Dose 2022-0 No Unknown 3-19 00:00: 00 Dose 2022-0 No Unknown 3-19 00:00: 00 Dose 2022-0 No Unknown 3-19 00:00: 00 Dose 2022-0 No Unknown 3-19 00:00: 00 Dose 2022-0 No Unknown 3-19 00:00: 00 Dose 2022-0 No Unknown 3-19 00:00: 00 Dose 2022-0 No Unknown 3-19 00:00: 00 Dose 2022-0 No Unknown 3-19 00:00: 00 Dose 2022-0 No Unknown 3-19 00:00: 00 Dose 2022-0 No Unknown 3-19 00:00: 00 Dose 2022-0 No Unknown 3-19 00:00: 00 Dose 2022-0 No Unknown 3-19 00:00: 00 Dose 2022-0 No Unknown 3-19 00:00: 00 Dose 2022-0 No Unknown 3-19 00:00: 00 Dose 2022-0 No Unknown 3-19 00:00: 00 Dose 2022-0 No Unknown 3-19 00:00: 00 Dose 2022-0 No Unknown 3-19 00:00: 00 Dose 2022-0 No Unknown 3-19 00:00: 00 Dose 2022-0 No Unknown 3-19 00:00: 00 Dose 2022-0 No Unknown 3-19 00:00: 00 Dose 2022-0 No Unknown 3-19 00:00: 00 Dose 2022-0 No Unknown 3-19 00:00: 00 Dose 2022-0 No Unknown 3-19 00:00: 00 Dose 2022-0 No Unknown 3-19 00:00: 00 Dose 2022-0 No Unknown 3-19 00:00: 00 Dose 2022-0 No Unknown 3-19 00:00: 00 Dose 2022-0 No Unknown 3-19 00:00: 00 Dose 2022-0 No Unknown 3-19 00:00: 00 Dose 2022-0 No Unknown 3-19 00:00: 00 Dose 2022-0 No Unknown 3-19 00:00: 00 Dose 2022-0 No Unknown 3-19 00:00: 00 Dose 2022-0 No Unknown 3-19 00:00: 00 Dose 2022-0 No Unknown 3-19 00:00: 00 Dose 2022-0 No Unknown 3-19 00:00: 00 Dose 2022-0 No Unknown 3-19 00:00: 00 Dose 2022-0 No Unknown 3-19 00:00: 00 Dose 2022-0 No Unknown 3-19 00:00: 00 Dose 2022-0 No Unknown 3-19 00:00: 00 Dose 2022-0 No Unknown 3-19 00:00: 00 Dose 2022-0 No Unknown 3-19 00:00: 00 Dose 2022-0 No Unknown 3-19 00:00: 00 Dose 2022-0 No Unknown 3-19 00:00: 00 Dose 2022-0 No Unknown 3-19 00:00: 00 Dose 2022-0 No Unknown 3-19 00:00: 00 Dose 2022-0 No Unknown 3-19 00:00: 00 Dose 2022-0 No Unknown 3-19 00:00: 00 Dose 2022-0 No Unknown 3-19 00:00: 00 Dose 2022-0 No Unknown 3-19 00:00: 00 Dose 2022-0 No Unknown 3-19 00:00: 00 Dose 2022-0 No Unknown 3-19 00:00: 00 Dose 2022-0 No Unknown 3-19 00:00: 00 Dose 2022-0 No Unknown 3-19 00:00: 00 Dose 2022-0 No Unknown 3-19 00:00: 00 Dose 2022-0 No Unknown 3-19 00:00: 00 Dose 2022-0 No Unknown 3-19 00:00: 00 Dose 2022-0 No Unknown 3-19 00:00: 00 Dose 2022-0 No Unknown 3-19 00:00: 00 Dose 2022-0 No Unknown 3-19 00:00: 00 Dose 2022-0 No Unknown 3-19 00:00: 00 Dose 2022-0 No Unknown 3-19 00:00: 00 Dose 2022-0 No Unknown 3-19 00:00: 00 Dose 2022-0 No Unknown 3-19 00:00: 00 Dose 2022-0 No Unknown 3-19 00:00: 00 Dose 2022-0 No Unknown 3-19 00:00: 00 Dose 2022-0 No Unknown 3-19 00:00: 00 Dose 2022-0 No Unknown 3-19 00:00: 00 Dose 2022-0 No Unknown 3-19 00:00: 00 Dose 2022-0 No Unknown 3-19 00:00: 00 Dose 2022-0 No Unknown 3-19 00:00: 00 Dose 2022-0 No Unknown 3-19 00:00: 00 Dose 2022-0 No Unknown 3-19 00:00: 00 Dose 2022-0 No Unknown 3-19 00:00: 00 Dose 2022-0 No Unknown 3-19 00:00: 00 Dose 2022-0 No Unknown 3-19 00:00: 00 Dose 2022-0 No Unknown 3-19 00:00: 00 Dose 2022-0 No Unknown 3-19 00:00: 00 Dose 2022-0 No Unknown 3-19 00:00: 00 Dose 2022-0 No Unknown 3-19 00:00: 00 Dose 2022-0 No Unknown 3-19 00:00: 00 Dose 2022-0 No Unknown 3-19 00:00: 00 Dose 2022-0 No Unknown 3-19 00:00: 00 Dose 2022-0 No Unknown 3-19 00:00: 00 Dose 2022-0 No Unknown 3-19 00:00: 00 Dose 2022-0 No Unknown 3-19 00:00: 00 Dose 2022-0 No Unknown 3-19 00:00: 00 Dose 2022-0 No Unknown 3-19 00:00: 00 Dose 2022-0 No Unknown 3-19 00:00: 00 Dose 2022-0 No Unknown 3-19 00:00: 00 Dose 2022-0 No Unknown 3-19 00:00: 00 Dose 2022-0 No Unknown 3-19 00:00: 00 Dose 2022-0 No Unknown 3-19 00:00: 00 Dose 2022-0 No Unknown 3-19 00:00: 00 Dose 2022-0 No Unknown 3-19 00:00: 00 Dose 2022-0 No Unknown 3-19 00:00: 00 Dose 2022-0 No Unknown 3-19 00:00: 00 Dose 2022-0 No Unknown 3-19 00:00: 00 Dose 2022-0 No Unknown 3-19 00:00: 00 Dose 2022-0 No Unknown 3-19 00:00: 00 Dose 2022-0 No Unknown 3-19 00:00: 00 Dose 2022-0 No Unknown 3-19 00:00: 00 Dose 2022-0 No Unknown 3-19 00:00: 00 Dose 2022-0 No Unknown 3-19 00:00: 00 Dose 2022-0 No Unknown 3-19 00:00: 00 Dose 2022-0 No Unknown 3-19 00:00: 00 Dose 2022-0 No Unknown 3-19 00:00: 00 Dose 2022-0 No Unknown 3-19 00:00: 00 Dose 2022-0 No Unknown 3-19 00:00: 00 Dose 2022-0 No Unknown 3-19 00:00: 00 Dose 2022-0 No Unknown 3-19 00:00: 00 Dose 2022-0 No Unknown 3-19 00:00: 00 Dose 2022-0 No Unknown 3-19 00:00: 00 Dose 2022-0 No Unknown 3-19 00:00: 00 Dose 2022-0 No Unknown 3-19 00:00: 00 Dose 2022-0 No Unknown 3-19 00:00: 00 Dose 2022-0 No Unknown 3-19 00:00: 00 Dose 2022-0 No Unknown 3-19 00:00: 00 Dose 2022-0 No Unknown 3-19 00:00: 00 Dose 2022-0 No Unknown 3-19 00:00: 00 Dose 2022-0 No Unknown 3-19 00:00: 00 Dose 2022-0 No Unknown 3-19 00:00: 00 Dose 2022-0 No Unknown 3-19 00:00: 00 Dose 2022-0 No Unknown 3-19 00:00: 00 Dose 2022-0 No Unknown 3-19 00:00: 00 Dose 2022-0 No Unknown 3-19 00:00: 00 Dose 2022-0 No Unknown 3-19 00:00: 00 Dose 2022-0 No Unknown 3-19 00:00: 00 Dose 2022-0 No Unknown 3-19 00:00: 00 Dose 2022-0 No Unknown 3-19 00:00: 00 Dose 2022-0 No Unknown 3-19 00:00: 00 Dose 2022-0 No Unknown 3-19 00:00: 00 Dose 2022-0 No Unknown 3-19 00:00: 00 Dose 2022-0 No Unknown 3-19 00:00: 00 Dose 2022-0 No Unknown 3-19 00:00: 00 Dose 2022-0 No Unknown 3-19 00:00: 00 Dose 2022-0 No Unknown 3-19 00:00: 00 Dose 2022-0 No Unknown 3-19 00:00: 00 Dose 2022-0 No Unknown 3-19 00:00: 00 Dose 2022-0 No Unknown 3-19 00:00: 00 Dose 2022-0 No Unknown 3-19 00:00: 00 fluconazole 2022-0 No 1mg 150 mg 3-19 tablet 00:00: 00 Dose 2022-0 No Unknown 3-19 00:00: 00 Dose 2022-0 No Unknown 3-19 00:00: 00 Dose 2022-0 No Unknown 3-19 00:00: 00 Dose 2022-0 No Unknown 3-19 00:00: 00 Dose 2022-0 No Unknown 3-19 00:00: 00 Dose 2022-0 No Unknown 3-19 00:00: 00 Dose 2022-0 No Unknown 3-19 00:00: 00 Dose 2022-0 No Unknown 3-19 00:00: 00 Dose 2022-0 No Unknown 3-19 00:00: 00 Dose 2022-0 No Unknown 3-19 00:00: 00 Dose 2022-0 No Unknown 3-19 00:00: 00 Dose 2022-0 No Unknown 3-19 00:00: 00 Dose 2022-0 No Unknown 3-19 00:00: 00 Dose 2022-0 No Unknown 3-19 00:00: 00 Dose 2022-0 No Unknown 3-19 00:00: 00 Dose 2022-0 No Unknown 3-19 00:00: 00 Dose 2022-0 No Unknown 3-19 00:00: 00 Dose 2022-0 No Unknown 3-19 00:00: 00 Dose 2022-0 No Unknown 3-19 00:00: 00 Dose 2022-0 No Unknown 3-19 00:00: 00 Dose 2022-0 No Unknown 3-19 00:00: 00 Dose 2022-0 No Unknown 3-19 00:00: 00 Dose 2022-0 No Unknown 3-19 00:00: 00 Dose 2022-0 No Unknown 3-19 00:00: 00 Dose 2022-0 No Unknown 3-19 00:00: 00 Dose 2022-0 No Unknown 3-19 00:00: 00 Dose 2022-0 No Unknown 3-19 00:00: 00 Dose 2022-0 No Unknown 3-19 00:00: 00 Dose 2022-0 No Unknown 3-19 00:00: 00 Dose 2022-0 No Unknown 3-19 00:00: 00 Dose 2022-0 No Unknown 3-19 00:00: 00 Dose 2022-0 No Unknown 3-19 00:00: 00 Dose 2022-0 No Unknown 3-19 00:00: 00 Dose 2022-0 No Unknown 3-19 00:00: 00 Dose 2022-0 No Unknown 3-19 00:00: 00 Dose 2022-0 No Unknown 3-19 00:00: 00 Dose 2022-0 No Unknown 3-19 00:00: 00 Dose 2022-0 No Unknown 3-19 00:00: 00 Dose 2022-0 No Unknown 3-19 00:00: 00 Dose 2022-0 No Unknown 3-19 00:00: 00 Dose 2022-0 No Unknown 3-19 00:00: 00 Dose 2022-0 No Unknown 3-19 00:00: 00 Dose 2022-0 No Unknown 3-19 00:00: 00 Dose 2022-0 No Unknown 3-19 00:00: 00 Dose 2022-0 No Unknown 3-19 00:00: 00 Dose 2022-0 No Unknown 3-19 00:00: 00 Dose 2022-0 No Unknown 3-19 00:00: 00 Dose 2022-0 No Unknown 3-19 00:00: 00 Dose 2022-0 No Unknown 3-19 00:00: 00 Dose 2022-0 No Unknown 3-19 00:00: 00 Dose 2022-0 No Unknown 3-19 00:00: 00 Dose 2022-0 No Unknown 3-19 00:00: 00 Dose 2022-0 No Unknown 3-19 00:00: 00 Dose 2022-0 No Unknown 3-19 00:00: 00 Dose 2022-0 No Unknown 3-19 00:00: 00 Dose 2022-0 No Unknown 3-19 00:00: 00 Dose 2022-0 No Unknown 3-19 00:00: 00 Dose 2022-0 No Unknown 3-19 00:00: 00 Dose 2022-0 No Unknown 3-19 00:00: 00 Dose 2022-0 No Unknown 3-19 00:00: 00 Dose 2022-0 No Unknown 3-19 00:00: 00 Dose 2022-0 No Unknown 3-19 00:00: 00 Dose 2022-0 No Unknown 3-19 00:00: 00 Dose 2022-0 No Unknown 3-19 00:00: 00 Dose 2022-0 No Unknown 3-19 00:00: 00 Dose 2022-0 No Unknown 3-19 00:00: 00 Dose 2022-0 No Unknown 3-19 00:00: 00 Dose 2022-0 No Unknown 3-19 00:00: 00 Dose 2022-0 No Unknown 3-19 00:00: 00 Dose 2022-0 No Unknown 3-19 00:00: 00 Dose 2022-0 No Unknown 3-19 00:00: 00 Dose 2022-0 No Unknown 3-19 00:00: 00 Dose 2022-0 No Unknown 3-19 00:00: 00 Dose 2022-0 No Unknown 3-19 00:00: 00 Dose 2022-0 No Unknown 3-19 00:00: 00 Dose 2022-0 No Unknown 3-19 00:00: 00 Dose 2022-0 No Unknown 3-19 00:00: 00 Dose 2022-0 No Unknown 3-19 00:00: 00 Dose 2022-0 No Unknown 3-19 00:00: 00 Dose 2022-0 No Unknown 3-19 00:00: 00 Dose 2022-0 No Unknown 3-19 00:00: 00 Dose 2022-0 No Unknown 3-19 00:00: 00 Dose 2022-0 No Unknown 3-19 00:00: 00 Dose 2022-0 No Unknown 3-19 00:00: 00 Dose 2022-0 No Unknown 3-19 00:00: 00 Dose 2022-0 No Unknown 3-19 00:00: 00 Dose 2022-0 No Unknown 3-19 00:00: 00 Dose 2022-0 No Unknown 3-19 00:00: 00 Dose 2022-0 No Unknown 3-19 00:00: 00 Dose 2022-0 No Unknown 3-19 00:00: 00 Dose 2022-0 No Unknown 3-19 00:00: 00 Dose 2022-0 No Unknown 3-19 00:00: 00 Dose 2022-0 No Unknown 3-19 00:00: 00 Dose 2022-0 No Unknown 3-19 00:00: 00 Dose 2022-0 No Unknown 3-19 00:00: 00 Dose 2022-0 No Unknown 3-19 00:00: 00 Dose 2022-0 No Unknown 3-19 00:00: 00 Dose 2022-0 No Unknown 3-19 00:00: 00 Dose 2022-0 No Unknown 3-19 00:00: 00 Dose 2022-0 No Unknown 3-19 00:00: 00 Dose 2022-0 No Unknown 3-19 00:00: 00 Dose 2022-0 No Unknown 3-19 00:00: 00 Dose 2022-0 No Unknown 3-19 00:00: 00 Dose 2022-0 No Unknown 3-19 00:00: 00 Dose 2022-0 No Unknown 3-19 00:00: 00 Dose 2022-0 No Unknown 3-19 00:00: 00 Dose 2022-0 No Unknown 3-19 00:00: 00 Dose 2022-0 No Unknown 3-19 00:00: 00 Dose 2022-0 No Unknown 3-19 00:00: 00 Dose 2022-0 No Unknown 3-19 00:00: 00 Dose 2022-0 No Unknown 3-19 00:00: 00 Dose 2022-0 No Unknown 3-19 00:00: 00 Dose 2022-0 No Unknown 3-19 00:00: 00 Dose 2022-0 No Unknown 3-19 00:00: 00 Dose 2022-0 No Unknown 3-19 00:00: 00 Dose 2022-0 No Unknown 3-19 00:00: 00 Dose 2022-0 No Unknown 3-19 00:00: 00 Dose 2022-0 No Unknown 3-19 00:00: 00 Dose 2022-0 No Unknown 3-19 00:00: 00 Dose 2022-0 No Unknown 3-19 00:00: 00 Dose 2022-0 No Unknown 3-19 00:00: 00 Dose 2022-0 No Unknown 3-19 00:00: 00 Dose 2022-0 No Unknown 3-19 00:00: 00 Dose 2022-0 No Unknown 3-19 00:00: 00 Dose 2022-0 No Unknown 3-19 00:00: 00 Dose 2022-0 No Unknown 3-19 00:00: 00 Dose 2022-0 No Unknown 3-19 00:00: 00 Dose 2022-0 No Unknown 3-19 00:00: 00 Dose 2022-0 No Unknown 3-19 00:00: 00 Dose 2022-0 No Unknown 3-19 00:00: 00 Dose 2022-0 No Unknown 3-19 00:00: 00 Dose 2022-0 No Unknown 3-19 00:00: 00 Dose 2022-0 No Unknown 3-19 00:00: 00 Dose 2022-0 No Unknown 3-19 00:00: 00 Dose 2022-0 No Unknown 3-19 00:00: 00 Dose 2022-0 No Unknown 3-19 00:00: 00 Dose 2022-0 No Unknown 3-19 00:00: 00 Dose 2022-0 No Unknown 3-19 00:00: 00 Dose 2022-0 No Unknown 3-19 00:00: 00 Dose 2022-0 No Unknown 3-19 00:00: 00 Dose 2022-0 No Unknown 3-19 00:00: 00 fluconazole 2022-0 No 1mg 150 mg 3-19 tablet 00:00: 00 Dose 2022-0 No Unknown 3-19 00:00: 00 Dose 2022-0 No Unknown 3-19 00:00: 00 Dose 2022-0 No Unknown 3-19 00:00: 00 Dose 2022-0 No Unknown 3-19 00:00: 00 Dose 2022-0 No Unknown 3-19 00:00: 00 Dose 2022-0 No Unknown 3-19 00:00: 00 Dose 2022-0 No Unknown 3-19 00:00: 00 Dose 2022-0 No Unknown 3-19 00:00: 00 Dose 2022-0 No Unknown 3-19 00:00: 00 Dose 2022-0 No Unknown 3-19 00:00: 00 Dose 2022-0 No Unknown 3-19 00:00: 00 Dose 2022-0 No Unknown 3-19 00:00: 00 Dose 2022-0 No Unknown 3-19 00:00: 00 Dose 2022-0 No Unknown 3-19 00:00: 00 Dose 2022-0 No Unknown 3-19 00:00: 00 Dose 2022-0 No Unknown 3-19 00:00: 00 Dose 2022-0 No Unknown 3-19 00:00: 00 Dose 2022-0 No Unknown 3-19 00:00: 00 Dose 2022-0 No Unknown 3-19 00:00: 00 Dose 2022-0 No Unknown 3-19 00:00: 00 Dose 2022-0 No Unknown 3-19 00:00: 00 Dose 2022-0 No Unknown 3-19 00:00: 00 Dose 2022-0 No Unknown 3-19 00:00: 00 Dose 2022-0 No Unknown 3-19 00:00: 00 Dose 2022-0 No Unknown 3-19 00:00: 00 Dose 2022-0 No Unknown 3-19 00:00: 00 Dose 2022-0 No Unknown 3-19 00:00: 00 Dose 2022-0 No Unknown 3-19 00:00: 00 Dose 2022-0 No Unknown 3-19 00:00: 00 Dose 2022-0 No Unknown 3-19 00:00: 00 Dose 2022-0 No Unknown 3-19 00:00: 00 Dose 2022-0 No Unknown 3-19 00:00: 00 Dose 2022-0 No Unknown 3-19 00:00: 00 Dose 2022-0 No Unknown 3-19 00:00: 00 Dose 2022-0 No Unknown 3-19 00:00: 00 Dose 2022-0 No Unknown 3-19 00:00: 00 Dose 2022-0 No Unknown 3-19 00:00: 00 Dose 2022-0 No Unknown 3-19 00:00: 00 Dose 2022-0 No Unknown 3-19 00:00: 00 Dose 2022-0 No Unknown 3-19 00:00: 00 Dose 2022-0 No Unknown 3-19 00:00: 00 Dose 2022-0 No Unknown 3-19 00:00: 00 Dose 2022-0 No Unknown 3-19 00:00: 00 Dose 2022-0 No Unknown 3-19 00:00: 00 Dose 2022-0 No Unknown 3-19 00:00: 00 Dose 2022-0 No Unknown 3-19 00:00: 00 Dose 2022-0 No Unknown 3-19 00:00: 00 Dose 2022-0 No Unknown 3-19 00:00: 00 Dose 2022-0 No Unknown 3-19 00:00: 00 Dose 2022-0 No Unknown 3-19 00:00: 00 Dose 2022-0 No Unknown 3-19 00:00: 00 Dose 2022-0 No Unknown 3-19 00:00: 00 Dose 2022-0 No Unknown 3-19 00:00: 00 Dose 2022-0 No Unknown 3-19 00:00: 00 Dose 2022-0 No Unknown 3-19 00:00: 00 Dose 2022-0 No Unknown 3-19 00:00: 00 Dose 2022-0 No Unknown 3-19 00:00: 00 Dose 2022-0 No Unknown 3-19 00:00: 00 Dose 2022-0 No Unknown 3-19 00:00: 00 Dose 2022-0 No Unknown 3-19 00:00: 00 Dose 2022-0 No Unknown 3-19 00:00: 00 Dose 2022-0 No Unknown 3-19 00:00: 00 Dose 2022-0 No Unknown 3-19 00:00: 00 Dose 2022-0 No Unknown 3-19 00:00: 00 Dose 2022-0 No Unknown 3-19 00:00: 00 Dose 2022-0 No Unknown 3-19 00:00: 00 Dose 2022-0 No Unknown 3-19 00:00: 00 Dose 2022-0 No Unknown 3-19 00:00: 00 Dose 2022-0 No Unknown 3-19 00:00: 00 Dose 2022-0 No Unknown 3-19 00:00: 00 Dose 2022-0 No Unknown 3-19 00:00: 00 Dose 2022-0 No Unknown 3-19 00:00: 00 Dose 2022-0 No Unknown 3-19 00:00: 00 Dose 2022-0 No Unknown 3-19 00:00: 00 Dose 2022-0 No Unknown 3-19 00:00: 00 Dose 2022-0 No Unknown 3-19 00:00: 00 Dose 2022-0 No Unknown 3-19 00:00: 00 Dose 2022-0 No Unknown 3-19 00:00: 00 Dose 2022-0 No Unknown 3-19 00:00: 00 Dose 2022-0 No Unknown 3-19 00:00: 00 Dose 2022-0 No Unknown 3-19 00:00: 00 Dose 2022-0 No Unknown 3-19 00:00: 00 Dose 2022-0 No Unknown 3-19 00:00: 00 Dose 2022-0 No Unknown 3-19 00:00: 00 Dose 2022-0 No Unknown 3-19 00:00: 00 Dose 2022-0 No Unknown 3-19 00:00: 00 Dose 2022-0 No Unknown 3-19 00:00: 00 Dose 2022-0 No Unknown 3-19 00:00: 00 Dose 2022-0 No Unknown 3-19 00:00: 00 Dose 2022-0 No Unknown 3-19 00:00: 00 Dose 2022-0 No Unknown 3-19 00:00: 00 Dose 2022-0 No Unknown 3-19 00:00: 00 Dose 2022-0 No Unknown 3-19 00:00: 00 Dose 2022-0 No Unknown 3-19 00:00: 00 Dose 2022-0 No Unknown 3-19 00:00: 00 Dose 2022-0 No Unknown 3-19 00:00: 00 Dose 2022-0 No Unknown 3-19 00:00: 00 Dose 2022-0 No Unknown 3-19 00:00: 00 Dose 2022-0 No Unknown 3-19 00:00: 00 Dose 2022-0 No Unknown 3-19 00:00: 00 Dose 2022-0 No Unknown 3-19 00:00: 00 Dose 2022-0 No Unknown 3-19 00:00: 00 Dose 2022-0 No Unknown 3-19 00:00: 00 Dose 2022-0 No Unknown 3-19 00:00: 00 Dose 2022-0 No Unknown 3-19 00:00: 00 Dose 2022-0 No Unknown 3-19 00:00: 00 Dose 2022-0 No Unknown 3-19 00:00: 00 Dose 2022-0 No Unknown 3-19 00:00: 00 Dose 2022-0 No Unknown 3-19 00:00: 00 Dose 2022-0 No Unknown 3-19 00:00: 00 Dose 2022-0 No Unknown 3-19 00:00: 00 Dose 2022-0 No Unknown 3-19 00:00: 00 Dose 2022-0 No Unknown 3-19 00:00: 00 Dose 2022-0 No Unknown 3-19 00:00: 00 Dose 2022-0 No Unknown 3-19 00:00: 00 Dose 2022-0 No Unknown 3-19 00:00: 00 Dose 2022-0 No Unknown 3-19 00:00: 00 Dose 2022-0 No Unknown 3-19 00:00: 00 Dose 2022-0 No Unknown 3-19 00:00: 00 Dose 2022-0 No Unknown 3-19 00:00: 00 Dose 2022-0 No Unknown 3-19 00:00: 00 Dose 2022-0 No Unknown 3-19 00:00: 00 Dose 2022-0 No Unknown 3-19 00:00: 00 Dose 2022-0 No Unknown 3-19 00:00: 00 Dose 2022-0 No Unknown 3-19 00:00: 00 Dose 2022-0 No Unknown 3-19 00:00: 00 Dose 2022-0 No Unknown 3-19 00:00: 00 Dose 2022-0 No Unknown 3-19 00:00: 00 Dose 2022-0 No Unknown 3-19 00:00: 00 Dose 2022-0 No Unknown 3-19 00:00: 00 Dose 2022-0 No Unknown 3-19 00:00: 00 Dose 2022-0 No Unknown 3-19 00:00: 00 Dose 2022-0 No Unknown 3-19 00:00: 00 Dose 2022-0 No Unknown 3-19 00:00: 00 Dose 2022-0 No Unknown 3-19 00:00: 00 Dose 2022-0 No Unknown 3-19 00:00: 00 Dose 2022-0 No Unknown 3-19 00:00: 00 Dose 2022-0 No Unknown 3-19 00:00: 00 Dose 2022-0 No Unknown 3-19 00:00: 00 Dose 2022-0 No Unknown 3-19 00:00: 00 Dose 2022-0 No Unknown 3-16 00:00: 00 Dose 2022-0 No Unknown 3-16 00:00: 00 Dose 2022-0 No Unknown 3-16 00:00: 00 Dose 2022-0 No Unknown 3-16 00:00: 00 Dose 2022-0 No Unknown 3-16 00:00: 00 Dose 2022-0 No Unknown 3-16 00:00: 00 Dose 2022-0 No Unknown 3-16 00:00: 00 Dose 2022-0 No Unknown 3-16 00:00: 00 Dose 2022-0 No Unknown 3-16 00:00: 00 Dose 2022-0 No Unknown 3-16 00:00: 00 Dose 2022-0 No Unknown 3-16 00:00: 00 Dose 2022-0 No Unknown 3-16 00:00: 00 Dose 2022-0 No Unknown 3-16 00:00: 00 Dose 2022-0 No Unknown 3-16 00:00: 00 Dose 2022-0 No Unknown 3-16 00:00: 00 Dose 2022-0 No Unknown 3-16 00:00: 00 Dose 2022-0 No Unknown 3-16 00:00: 00 Dose 2022-0 No Unknown 3-16 00:00: 00 Dose 2022-0 No Unknown 3-16 00:00: 00 Dose 2022-0 No Unknown 3-16 00:00: 00 Dose 2022-0 No Unknown 3-16 00:00: 00 Dose 2022-0 No Unknown 3-16 00:00: 00 Dose 2022-0 No Unknown 3-16 00:00: 00 Dose 2022-0 No Unknown 3-16 00:00: 00 Dose 2022-0 No Unknown 3-16 00:00: 00 Dose 2022-0 No Unknown 3-16 00:00: 00 Dose 2022-0 No Unknown 3-16 00:00: 00 Dose 2022-0 No Unknown 3-16 00:00: 00 lisinopril 2022-0 No 1mg 20 mg 3-07 tablet 00:00: 00 lisinopril 2022-0 No 1mg 20 mg 3-07 tablet 00:00: 00 lisinopril 2022-0 No 1mg 20 mg 3-07 tablet 00:00: 00 lisinopril 2022-0 No 1mg 20 mg 3-07 tablet 00:00: 00 Dose 2022-0 No Unknown 3-02 00:00: 00 Dose 2022-0 No Unknown 3-02 00:00: 00 Dose 2022-0 No Unknown 3-02 00:00: 00 Dose 2022-0 No Unknown 3-02 00:00: 00 Dose 2022-0 No Unknown 3-02 00:00: 00 Dose 2022-0 No Unknown 3-02 00:00: 00 Dose 2022-0 No Unknown 3-02 00:00: 00 Dose 2022-0 No Unknown 3-02 00:00: 00 Dose 2022-0 No Unknown 3-02 00:00: 00 Dose 2022-0 No Unknown 3-02 00:00: 00 Dose 2022-0 No Unknown 3-02 00:00: 00 Dose 2022-0 No Unknown 3-02 00:00: 00 Dose 2022-0 No Unknown 3-02 00:00: 00 Dose 2022-0 No Unknown 3-02 00:00: 00 Dose 2022-0 No Unknown 3-02 00:00: 00 Dose 2022-0 No Unknown 3-02 00:00: 00 Dose 2022-0 No Unknown 3-02 00:00: 00 Dose 2022-0 No Unknown 3-02 00:00: 00 Dose 2022-0 No Unknown 3-02 00:00: 00 Dose 2022-0 No Unknown 3-02 00:00: 00 Dose 2022-0 No Unknown 3-02 00:00: 00 Dose 2022-0 No Unknown 3-02 00:00: 00 Dose 2022-0 No Unknown 3-02 00:00: 00 Dose 2022-0 No Unknown 3-02 00:00: 00 Dose 2022-0 No Unknown 3-02 00:00: 00 Dose 2022-0 No Unknown 3-02 00:00: 00 Dose 2022-0 No Unknown 3-02 00:00: 00 Dose 2022-0 No Unknown 3-02 00:00: 00 Dose 2022-0 No Unknown 3-02 00:00: 00 Dose 2022-0 No Unknown 3-02 00:00: 00 Dose 2022-0 No Unknown 3-02 00:00: 00 Dose 2022-0 No Unknown 3-02 00:00: 00 Dose 2022-0 No Unknown 3-02 00:00: 00 Dose 2022-0 No Unknown 3-02 00:00: 00 Dose 2022-0 No Unknown 3-02 00:00: 00 Dose 2022-0 No Unknown 3-02 00:00: 00 Dose 2022-0 No Unknown 3-02 00:00: 00 Dose 2022-0 No Unknown 3-02 00:00: 00 Dose 2022-0 No Unknown 3-02 00:00: 00 Dose 2022-0 No Unknown 3-02 00:00: 00 Dose 2022-0 No Unknown 3-02 00:00: 00 Dose 2022-0 No Unknown 3-02 00:00: 00 Dose 2022-0 No Unknown 3-02 00:00: 00 Dose 2022-0 No Unknown 3-02 00:00: 00 Dose 2022-0 No Unknown 3-02 00:00: 00 Dose 2022-0 No Unknown 3-02 00:00: 00 Dose 2022-0 No Unknown 3-02 00:00: 00 Dose 2022-0 No Unknown 3-02 00:00: 00 Dose 2022-0 No Unknown 3-02 00:00: 00 Dose 2022-0 No Unknown 3-02 00:00: 00 Dose 2022-0 No Unknown 3-02 00:00: 00 Dose 2022-0 No Unknown 3-02 00:00: 00 Dose 2022-0 No Unknown 3-02 00:00: 00 Dose 2022-0 No Unknown 3-02 00:00: 00 Dose 2022-0 No Unknown 3-02 00:00: 00 Dose 2022-0 No Unknown 3-02 00:00: 00 Dose 2022-0 No Unknown 3-02 00:00: 00 Dose 2022-0 No Unknown 3-02 00:00: 00 Dose 2022-0 No Unknown 3-02 00:00: 00 Dose 2022-0 No Unknown 3-02 00:00: 00 Dose 2022-0 No Unknown 3-02 00:00: 00 Dose 2022-0 No Unknown 3-02 00:00: 00 Dose 2022-0 No Unknown 3-02 00:00: 00 Dose 2022-0 No Unknown 3-02 00:00: 00 Dose 2022-0 No Unknown 3-02 00:00: 00 Dose 2022-0 No Unknown 3-02 00:00: 00 Dose 2022-0 No Unknown 3-02 00:00: 00 Dose 2022-0 No Unknown 3-02 00:00: 00 Dose 2022-0 No Unknown 3-02 00:00: 00 Dose 2022-0 No Unknown 3-02 00:00: 00 Dose 2022-0 No Unknown 3-02 00:00: 00 Dose 2022-0 No Unknown 3-02 00:00: 00 Dose 2022-0 No Unknown 3-02 00:00: 00 Dose 2022-0 No Unknown 3-02 00:00: 00 Dose 2022-0 No Unknown 3-02 00:00: 00 Dose 2022-0 No Unknown 3-02 00:00: 00 Dose 2022-0 No Unknown 3-02 00:00: 00 Dose 2022-0 No Unknown 3-02 00:00: 00 Dose 2022-0 No Unknown 3-02 00:00: 00 Dose 2022-0 No Unknown 3-02 00:00: 00 Dose 2022-0 No Unknown 3-02 00:00: 00 Dose 2022-0 No Unknown 3-02 00:00: 00 Dose 2022-0 No Unknown 3-02 00:00: 00 Dose 2022-0 No Unknown 3-02 00:00: 00 Dose 2022-0 No Unknown 3-02 00:00: 00 Dose 2022-0 No Unknown 3-02 00:00: 00 Dose 2022-0 No Unknown 3-02 00:00: 00 Dose 2022-0 No Unknown 3-02 00:00: 00 Dose 2022-0 No Unknown 3-02 00:00: 00 Dose 2022-0 No Unknown 3-02 00:00: 00 Dose 2022-0 No Unknown 3-02 00:00: 00 Dose 2022-0 No Unknown 3-02 00:00: 00 Dose 2022-0 No Unknown 3-02 00:00: 00 Dose 2022-0 No Unknown 3-02 00:00: 00 Dose 2022-0 No Unknown 3-02 00:00: 00 Dose 2022-0 No Unknown 3-02 00:00: 00 Dose 2022-0 No Unknown 3-02 00:00: 00 Dose 2022-0 No Unknown 3-02 00:00: 00 Dose 2022-0 No Unknown 3-02 00:00: 00 Dose 2022-0 No Unknown 3-02 00:00: 00 Dose 2022-0 No Unknown 3-02 00:00: 00 Dose 2022-0 No Unknown 3-02 00:00: 00 Dose 2022-0 No Unknown 3-02 00:00: 00 Dose 2022-0 No Unknown 3-02 00:00: 00 Dose 2022-0 No Unknown 3-02 00:00: 00 Dose 2022-0 No Unknown 3-02 00:00: 00 Dose 2022-0 No Unknown 3-02 00:00: 00 Dose 2022-0 No Unknown 3-02 00:00: 00 Dose 2022-0 No Unknown 3-02 00:00: 00 Dose 2022-0 No Unknown 3-02 00:00: 00 Dose 2022-0 No Unknown 3-02 00:00: 00 Dose 2022-0 No Unknown 3-02 00:00: 00 Dose 2022-0 No Unknown 3-02 00:00: 00 Dose 2022-0 No Unknown 3-02 00:00: 00 Dose 2022-0 No Unknown 3-02 00:00: 00 Dose 2022-0 No Unknown 3-02 00:00: 00 Dose 2022-0 No Unknown 3-02 00:00: 00 Dose 2022-0 No Unknown 3-02 00:00: 00 Dose 2022-0 No Unknown 3-02 00:00: 00 Dose 2022-0 No Unknown 3-02 00:00: 00 Dose 2022-0 No Unknown 3-02 00:00: 00 Dose 2022-0 No Unknown 3-02 00:00: 00 Dose 2022-0 No Unknown 3-02 00:00: 00 Dose 2022-0 No Unknown 3-02 00:00: 00 Dose 2022-0 No Unknown 3-02 00:00: 00 Dose 2022-0 No Unknown 3-02 00:00: 00 Dose 2022-0 No Unknown 3-02 00:00: 00 Dose 2022-0 No Unknown 3-02 00:00: 00 Dose 2022-0 No Unknown 3-02 00:00: 00 Dose 2022-0 No Unknown 3-02 00:00: 00 Dose 2022-0 No Unknown 3-02 00:00: 00 Dose 2022-0 No Unknown 3-02 00:00: 00 Dose 2022-0 No Unknown 3-02 00:00: 00 Dose 2022-0 No Unknown 3-02 00:00: 00 Dose 2022-0 No Unknown 3-02 00:00: 00 Dose 2022-0 No Unknown 3-02 00:00: 00 Dose 2022-0 No Unknown 3-02 00:00: 00 Dose 2022-0 No Unknown 3-02 00:00: 00 Dose 2022-0 No Unknown 3-02 00:00: 00 Dose 2022-0 No Unknown 3-02 00:00: 00 Dose 2022-0 No Unknown 3-02 00:00: 00 Dose 2022-0 No Unknown 3-02 00:00: 00 Dose 2022-0 No Unknown 3-02 00:00: 00 Dose 2022-0 No Unknown 3-02 00:00: 00 Dose 2022-0 No Unknown 3-02 00:00: 00 Dose 2022-0 No Unknown 3-02 00:00: 00 Dose 2022-0 No Unknown 3-02 00:00: 00 Dose 2022-0 No Unknown 3-02 00:00: 00 Dose 2022-0 No Unknown 3-02 00:00: 00 Dose 2022-0 No Unknown 3-02 00:00: 00 Dose 2022-0 No Unknown 3-02 00:00: 00 Dose 2022-0 No Unknown 3-02 00:00: 00 Dose 2022-0 No Unknown 3-02 00:00: 00 Dose 2022-0 No Unknown 3-02 00:00: 00 Dose 2022-0 No Unknown 3-02 00:00: 00 Dose 2022-0 No Unknown 3-02 00:00: 00 Dose 2022-0 No Unknown 3-02 00:00: 00 Dose 2022-0 No Unknown 3-02 00:00: 00 Dose 2022-0 No Unknown 3-02 00:00: 00 Dose 2022-0 No Unknown 3-02 00:00: 00 Dose 2022-0 No Unknown 3-02 00:00: 00 Dose 2022-0 No Unknown 3-02 00:00: 00 Dose 2022-0 No Unknown 3-02 00:00: 00 Dose 2022-0 No Unknown 3-02 00:00: 00 Dose 2022-0 No Unknown 3-02 00:00: 00 Dose 2022-0 No Unknown 3-02 00:00: 00 Dose 2022-0 No Unknown 3-02 00:00: 00 Dose 2022-0 No Unknown 3-02 00:00: 00 Dose 2022-0 No Unknown 3-02 00:00: 00 Dose 2022-0 No Unknown 3-02 00:00: 00 Dose 2022-0 No Unknown 3-02 00:00: 00 Dose 2022-0 No Unknown 3-02 00:00: 00 Dose 2022-0 No Unknown 3-02 00:00: 00 Dose 2022-0 No Unknown 3-02 00:00: 00 Dose 2022-0 No Unknown 3-02 00:00: 00 Dose 2022-0 No Unknown 3-02 00:00: 00 Dose 2022-0 No Unknown 3-02 00:00: 00 Dose 2022-0 No Unknown 3-02 00:00: 00 Dose 2022-0 No Unknown 3-02 00:00: 00 Dose 2022-0 No Unknown 3-02 00:00: 00 Dose 2022-0 No Unknown 3-02 00:00: 00 Dose 2022-0 No Unknown 3-02 00:00: 00 Dose 2022-0 No Unknown 3-02 00:00: 00 Dose 2022-0 No Unknown 3-02 00:00: 00 Dose 2022-0 No Unknown 3-02 00:00: 00 Dose 2022-0 No Unknown 3-02 00:00: 00 Dose 2022-0 No Unknown 3-02 00:00: 00 Dose 2022-0 No Unknown 3-02 00:00: 00 Dose 2022-0 No Unknown 3-02 00:00: 00 Dose 2022-0 No Unknown 3-02 00:00: 00 Dose 2022-0 No Unknown 3-02 00:00: 00 Dose 2022-0 No Unknown 3-02 00:00: 00 Dose 2022-0 No Unknown 3-02 00:00: 00 Dose 2022-0 No Unknown 3-02 00:00: 00 Dose 2022-0 No Unknown 3-02 00:00: 00 Dose 2022-0 No Unknown 3-02 00:00: 00 Dose 2022-0 No Unknown 3-02 00:00: 00 Dose 2022-0 No Unknown 3-02 00:00: 00 Dose 2022-0 No Unknown 3-02 00:00: 00 Dose 2022-0 No Unknown 3-02 00:00: 00 Dose 2022-0 No Unknown 3-02 00:00: 00 Dose 2022-0 No Unknown 3-02 00:00: 00 Dose 2022-0 No Unknown 3-02 00:00: 00 Dose 2022-0 No Unknown 3-02 00:00: 00 Dose 2022-0 No Unknown 3-02 00:00: 00 Dose 2022-0 No Unknown 3-02 00:00: 00 Dose 2022-0 No Unknown 3-02 00:00: 00 Dose 2022-0 No Unknown 3-02 00:00: 00 Dose 2022-0 No Unknown 3-02 00:00: 00 Dose 2022-0 No Unknown 3-02 00:00: 00 Dose 2022-0 No Unknown 3-02 00:00: 00 Dose 2022-0 No Unknown 3-02 00:00: 00 Dose 2022-0 No Unknown 3-02 00:00: 00 Dose 2022-0 No Unknown 3-02 00:00: 00 Dose 2022-0 No Unknown 3-02 00:00: 00 Dose 2022-0 No Unknown 3-02 00:00: 00 Dose 2022-0 No Unknown 3-02 00:00: 00 Dose 2022-0 No Unknown 3-02 00:00: 00 Dose 2022-0 No Unknown 3-02 00:00: 00 Dose 2022-0 No Unknown 3-02 00:00: 00 Dose 2022-0 No Unknown 3-02 00:00: 00 Dose 2022-0 No Unknown 3-02 00:00: 00 Dose 2022-0 No Unknown 3-02 00:00: 00 Dose 2022-0 No Unknown 3-02 00:00: 00 Dose 2022-0 No Unknown 3-02 00:00: 00 Dose 2022-0 No Unknown 3-02 00:00: 00 Dose 2022-0 No Unknown 3-02 00:00: 00 Dose 2022-0 No Unknown 3-02 00:00: 00 Dose 2022-0 No Unknown 3-02 00:00: 00 Dose 2022-0 No Unknown 3-02 00:00: 00 Dose 2022-0 No Unknown 3-02 00:00: 00 Dose 2022-0 No Unknown 3-02 00:00: 00 Dose 2022-0 No Unknown 3-02 00:00: 00 Dose 2022-0 No Unknown 3-02 00:00: 00 Dose 2022-0 No Unknown 3-02 00:00: 00 Dose 2022-0 No Unknown 3-02 00:00: 00 Dose 2022-0 No Unknown 3-02 00:00: 00 Dose 2022-0 No Unknown 3-02 00:00: 00 Dose 2022-0 No Unknown 3-02 00:00: 00 Dose 2022-0 No Unknown 3-02 00:00: 00 Dose 2022-0 No Unknown 3-02 00:00: 00 Dose 2022-0 No Unknown 3-02 00:00: 00 Dose 2022-0 No Unknown 3-02 00:00: 00 Dose 2022-0 No Unknown 3-02 00:00: 00 Dose 2022-0 No Unknown 3-02 00:00: 00 Dose 2022-0 No Unknown 3-02 00:00: 00 Dose 2022-0 No Unknown 3-02 00:00: 00 Dose 2022-0 No Unknown 3-02 00:00: 00 Dose 2022-0 No Unknown 3-02 00:00: 00 Dose 2022-0 No Unknown 3-02 00:00: 00 Dose 2022-0 No Unknown 3-02 00:00: 00 Dose 2022-0 No Unknown 3-02 00:00: 00 Dose 2022-0 No Unknown 3-02 00:00: 00 Dose 2022-0 No Unknown 3-02 00:00: 00 Dose 2022-0 No Unknown 3-02 00:00: 00 Dose 2022-0 No Unknown 3-02 00:00: 00 Dose 2022-0 No Unknown 3-02 00:00: 00 Dose 2022-0 No Unknown 3-02 00:00: 00 Dose 2022-0 No Unknown 3-02 00:00: 00 Dose 2022-0 No Unknown 3-02 00:00: 00 Dose 2022-0 No Unknown 3-02 00:00: 00 Dose 2022-0 No Unknown 3-02 00:00: 00 Dose 2022-0 No Unknown 3-02 00:00: 00 Dose 2022-0 No Unknown 3-02 00:00: 00 Dose 2022-0 No Unknown 3-02 00:00: 00 Dose 2022-0 No Unknown 3-02 00:00: 00 Dose 2022-0 No Unknown 3-02 00:00: 00 Dose 2022-0 No Unknown 3-02 00:00: 00 Dose 2022-0 No Unknown 3-02 00:00: 00 Dose 2022-0 No Unknown 3-02 00:00: 00 Dose 2022-0 No Unknown 3-02 00:00: 00 Dose 2022-0 No Unknown 3-02 00:00: 00 Dose 2022-0 No Unknown 3-02 00:00: 00 Dose 2022-0 No Unknown 3-02 00:00: 00 Dose 2022-0 No Unknown 3-02 00:00: 00 Dose 2022-0 No Unknown 3-02 00:00: 00 Dose 2022-0 No Unknown 3-02 00:00: 00 Dose 2022-0 No Unknown 3-02 00:00: 00 Dose 2022-0 No Unknown 3-02 00:00: 00 Dose 2022-0 No Unknown 3-02 00:00: 00 Dose 2022-0 No Unknown 3-02 00:00: 00 Dose 2022-0 No Unknown 3-02 00:00: 00 Dose 2022-0 No Unknown 3-02 00:00: 00 Dose 2022-0 No Unknown 3-02 00:00: 00 Dose 2022-0 No Unknown 3-02 00:00: 00 Dose 2022-0 No Unknown 3-02 00:00: 00 Dose 2022-0 No Unknown 3-02 00:00: 00 Dose 2022-0 No Unknown 3-02 00:00: 00 Dose 2022-0 No Unknown 3-02 00:00: 00 Dose 2022-0 No Unknown 3-02 00:00: 00 Dose 2022-0 No Unknown 3-02 00:00: 00 Dose 2022-0 No Unknown 3-02 00:00: 00 Dose 2022-0 No Unknown 3-02 00:00: 00 Dose 2022-0 No Unknown 3-02 00:00: 00 Dose 2022-0 No Unknown 3-02 00:00: 00 Dose 2022-0 No Unknown 3-02 00:00: 00 Dose 2022-0 No Unknown 3-02 00:00: 00 Dose 2022-0 No Unknown 3-02 00:00: 00 Dose 2022-0 No Unknown 3-02 00:00: 00 Dose 2022-0 No Unknown 3-02 00:00: 00 Dose 2022-0 No Unknown 3-02 00:00: 00 Dose 2022-0 No Unknown 3-02 00:00: 00 Dose 2022-0 No Unknown 3-02 00:00: 00 Dose 2022-0 No Unknown 3-02 00:00: 00 Dose 2022-0 No Unknown 3-02 00:00: 00 Dose 2022-0 No Unknown 3-02 00:00: 00 Dose 2022-0 No Unknown 3-02 00:00: 00 Dose 2022-0 No Unknown 3-02 00:00: 00 Dose 2022-0 No Unknown 3-02 00:00: 00 Dose 2022-0 No Unknown 3-02 00:00: 00 Dose 2022-0 No Unknown 3-02 00:00: 00 Dose 2022-0 No Unknown 3-02 00:00: 00 Dose 2022-0 No Unknown 3-02 00:00: 00 Dose 2022-0 No Unknown 3-02 00:00: 00 Dose 2022-0 No Unknown 3-02 00:00: 00 Dose 2022-0 No Unknown 3-02 00:00: 00 Dose 2022-0 No Unknown 3-02 00:00: 00 Dose 2022-0 No Unknown 3-02 00:00: 00 Dose 2022-0 No Unknown 3-02 00:00: 00 Dose 2022-0 No Unknown 3-02 00:00: 00 Dose 2022-0 No Unknown 3-02 00:00: 00 Dose 2022-0 No Unknown 3-02 00:00: 00 Dose 2022-0 No Unknown 3-02 00:00: 00 Dose 2022-0 No Unknown 3-02 00:00: 00 Dose 2022-0 No Unknown 3-02 00:00: 00 Dose 2022-0 No Unknown 3-02 00:00: 00 Dose 2022-0 No Unknown 3-02 00:00: 00 Dose 2022-0 No Unknown 3-02 00:00: 00 Dose 2022-0 No Unknown 3-02 00:00: 00 Dose 2022-0 No Unknown 3-02 00:00: 00 Dose 2022-0 No Unknown 3-02 00:00: 00 Dose 2022-0 No Unknown 3-02 00:00: 00 Dose 2022-0 No Unknown 3-02 00:00: 00 Dose 2022-0 No Unknown 3-02 00:00: 00 Dose 2022-0 No Unknown 3-02 00:00: 00 Dose 2022-0 No Unknown 3-02 00:00: 00 Dose 2022-0 No Unknown 3-02 00:00: 00 Dose 2022-0 No Unknown 3-02 00:00: 00 Dose 2022-0 No Unknown 3-02 00:00: 00 Dose 2022-0 No Unknown 3-02 00:00: 00 Dose 2022-0 No Unknown 3-02 00:00: 00 Dose 2022-0 No Unknown 3-02 00:00: 00 Dose 2022-0 No Unknown 3-02 00:00: 00 Dose 2022-0 No Unknown 3-02 00:00: 00 Dose 2022-0 No Unknown 3-02 00:00: 00 Dose 2022-0 No Unknown 3-02 00:00: 00 Dose 2022-0 No Unknown 3-02 00:00: 00 Dose 2022-0 No Unknown 3-02 00:00: 00 Dose 2022-0 No Unknown 3-02 00:00: 00 Dose 2022-0 No Unknown 3-02 00:00: 00 Dose 2022-0 No Unknown 3-02 00:00: 00 Dose 2022-0 No Unknown 3-02 00:00: 00 Dose 2022-0 No Unknown 3-02 00:00: 00 Dose 2022-0 No Unknown 3-02 00:00: 00 Dose 2022-0 No Unknown 3-02 00:00: 00 Dose 2022-0 No Unknown 3-02 00:00: 00 Dose 2022-0 No Unknown 3-02 00:00: 00 Dose 2022-0 No Unknown 3-02 00:00: 00 Dose 2022-0 No Unknown 3-02 00:00: 00 Dose 2022-0 No Unknown 3-02 00:00: 00 Dose 2022-0 No Unknown 3-02 00:00: 00 Dose 2022-0 No Unknown 3-02 00:00: 00 Dose 2022-0 No Unknown 3-02 00:00: 00 Dose 2022-0 No Unknown 3-02 00:00: 00 Dose 2022-0 No Unknown 3-02 00:00: 00 Dose 2022-0 No Unknown 3-02 00:00: 00 Dose 2022-0 No Unknown 3-02 00:00: 00 Dose 2022-0 No Unknown 3-02 00:00: 00 Dose 2022-0 No Unknown 3-02 00:00: 00 Dose 2022-0 No Unknown 3-02 00:00: 00 Dose 2022-0 No Unknown 3-02 00:00: 00 Dose 2022-0 No Unknown 3-02 00:00: 00 Dose 2022-0 No Unknown 3-02 00:00: 00 Dose 2022-0 No Unknown 3-02 00:00: 00 Dose 2022-0 No Unknown 3-02 00:00: 00 Dose 2022-0 No Unknown 3-02 00:00: 00 Dose 2022-0 No Unknown 3-02 00:00: 00 Dose 2022-0 No Unknown 3-02 00:00: 00 Dose 2022-0 No Unknown 3-02 00:00: 00 Dose 2022-0 No Unknown 3-02 00:00: 00 Dose 2022-0 No Unknown 3-02 00:00: 00 Dose 2022-0 No Unknown 3-02 00:00: 00 Dose 2022-0 No Unknown 3-02 00:00: 00 Dose 2022-0 No Unknown 3-02 00:00: 00 EpiPen 0.3 2022-0 No mg/0.3 mg/0.3 mL 2-28 mL injection, 00:00: auto-inject 00 or Dose 2022-0 No Unknown 2-28 00:00: 00 Dose 2022-0 No Unknown 2-28 00:00: 00 Dose 2022-0 No Unknown 2-28 00:00: 00 Dose 2022-0 No Unknown 2-28 00:00: 00 Dose 2022-0 No Unknown 2-28 00:00: 00 Dose 2022-0 No Unknown 2-28 00:00: 00 Dose 2022-0 No Unknown 2-28 00:00: 00 Dose 2022-0 No Unknown 2-28 00:00: 00 Dose 2022-0 No Unknown 2-28 00:00: 00 Dose 2022-0 No Unknown 2-28 00:00: 00 Dose 2022-0 No Unknown 2-28 00:00: 00 Dose 2022-0 No Unknown 2-28 00:00: 00 Dose 2022-0 No Unknown 2-28 00:00: 00 Dose 2022-0 No Unknown 2-28 00:00: 00 Dose 2022-0 No Unknown 2-28 00:00: 00 Dose 2022-0 No Unknown 2-28 00:00: 00 Dose 2022-0 No Unknown 2-28 00:00: 00 Dose 2022-0 No Unknown 2-28 00:00: 00 Dose 2022-0 No Unknown 2-28 00:00: 00 Dose 2022-0 No Unknown 2-28 00:00: 00 Dose 2022-0 No Unknown 2-28 00:00: 00 Dose 2022-0 No Unknown 2-28 00:00: 00 Dose 2022-0 No Unknown 2-28 00:00: 00 Dose 2022-0 No Unknown 2-28 00:00: 00 Dose 2022-0 No Unknown 2-28 00:00: 00 Dose 2022-0 No Unknown 2-28 00:00: 00 Dose 2022-0 No Unknown 2-28 00:00: 00 Dose 2022-0 No Unknown 2-28 00:00: 00 Dose 2022-0 No Unknown 2-28 00:00: 00 Dose 2022-0 No Unknown 2-28 00:00: 00 Dose 2022-0 No Unknown 2-28 00:00: 00 Dose 2022-0 No Unknown 2-28 00:00: 00 Dose 2022-0 No Unknown 2-28 00:00: 00 Dose 2022-0 No Unknown 2-28 00:00: 00 Dose 2022-0 No Unknown 2-28 00:00: 00 Dose 2022-0 No Unknown 2-28 00:00: 00 Dose 2022-0 No Unknown 2-28 00:00: 00 Dose 2022-0 No Unknown 2-28 00:00: 00 Dose 2022-0 No Unknown 2-28 00:00: 00 Dose 2022-0 No Unknown 2-28 00:00: 00 Dose 2022-0 No Unknown 2-28 00:00: 00 Dose 2022-0 No Unknown 2-28 00:00: 00 Dose 2022-0 No Unknown 2-28 00:00: 00 Dose 2022-0 No Unknown 2-28 00:00: 00 Dose 2022-0 No Unknown 2-28 00:00: 00 Dose 2022-0 No Unknown 2-28 00:00: 00 Dose 2022-0 No Unknown 2-28 00:00: 00 Dose 2022-0 No Unknown 2-28 00:00: 00 Dose 2022-0 No Unknown 2-28 00:00: 00 Dose 2022-0 No Unknown 2-28 00:00: 00 Dose 2022-0 No Unknown 2-28 00:00: 00 Dose 2022-0 No Unknown 2-28 00:00: 00 Dose 2022-0 No Unknown 2-28 00:00: 00 Dose 2022-0 No Unknown 2-28 00:00: 00 Dose 2022-0 No Unknown 2-28 00:00: 00 Dose 2022-0 No Unknown 2-28 00:00: 00 Dose 2022-0 No Unknown 2-28 00:00: 00 Dose 2022-0 No Unknown 2-28 00:00: 00 Dose 2022-0 No Unknown 2-28 00:00: 00 Dose 2022-0 No Unknown 2-28 00:00: 00 Dose 2022-0 No Unknown 2-28 00:00: 00 Dose 2022-0 No Unknown 2-28 00:00: 00 Dose 2022-0 No Unknown 2-28 00:00: 00 Dose 2022-0 No Unknown 2-28 00:00: 00 Dose 2022-0 No Unknown 2-28 00:00: 00 Dose 2022-0 No Unknown 2-28 00:00: 00 Dose 2022-0 No Unknown 2-28 00:00: 00 Dose 2022-0 No Unknown 2-28 00:00: 00 Dose 2022-0 No Unknown 2-28 00:00: 00 Dose 2022-0 No Unknown 2-28 00:00: 00 Dose 2022-0 No Unknown 2-28 00:00: 00 Dose 2022-0 No Unknown 2-28 00:00: 00 Dose 2022-0 No Unknown 2-28 00:00: 00 Dose 2022-0 No Unknown 2-28 00:00: 00 Dose 2022-0 No Unknown 2-28 00:00: 00 Dose 2022-0 No Unknown 2-28 00:00: 00 Dose 2022-0 No Unknown 2-28 00:00: 00 Dose 2022-0 No Unknown 2-28 00:00: 00 Dose 2022-0 No Unknown 2-28 00:00: 00 Dose 2022-0 No Unknown 2-28 00:00: 00 Dose 2022-0 No Unknown 2-28 00:00: 00 Dose 2022-0 No Unknown 2-28 00:00: 00 Dose 2022-0 No Unknown 2-28 00:00: 00 Dose 2022-0 No Unknown 2-28 00:00: 00 Dose 2022-0 No Unknown 2-28 00:00: 00 Dose 2022-0 No Unknown 2-28 00:00: 00 Dose 2022-0 No Unknown 2-28 00:00: 00 Dose 2022-0 No Unknown 2-28 00:00: 00 Dose 2022-0 No Unknown 2-28 00:00: 00 Dose 2022-0 No Unknown 2-28 00:00: 00 Dose 2022-0 No Unknown 2-28 00:00: 00 Dose 2022-0 No Unknown 2-28 00:00: 00 Dose 2022-0 No Unknown 2-28 00:00: 00 Dose 2022-0 No Unknown 2- 00:00: 00 Dose 2022-0 No Unknown 2- 00:00: 00 Dose 2022-0 No Unknown 2- 00:00: 00 EpiPen 0.3 2022-0 No mg/0.3 mg/0.3 mL 2-28 mL injection, 00:00: auto-inject 00 or Dose 2022-0 No Unknown 2-28 00:00: 00 Dose 2022-0 No Unknown 2-28 00:00: 00 Dose 2022-0 No Unknown 2-28 00:00: 00 Dose 2022-0 No Unknown 2-28 00:00: 00 Dose 2022-0 No Unknown 2-28 00:00: 00 Dose 2022-0 No Unknown 2-28 00:00: 00 Dose 2022-0 No Unknown 2-28 00:00: 00 Dose 2022-0 No Unknown 2-28 00:00: 00 Dose 2022-0 No Unknown 2-28 00:00: 00 Dose 2022-0 No Unknown 2-28 00:00: 00 Dose 2022-0 No Unknown 2-28 00:00: 00 Dose 2022-0 No Unknown 2-28 00:00: 00 Dose 2022-0 No Unknown 2-28 00:00: 00 Dose 2022-0 No Unknown 2-28 00:00: 00 Dose 2022-0 No Unknown 2-28 00:00: 00 Dose 2022-0 No Unknown 2-28 00:00: 00 Dose 2022-0 No Unknown 2-28 00:00: 00 Dose 2022-0 No Unknown 2-28 00:00: 00 Dose 2022-0 No Unknown 2-28 00:00: 00 Dose 2022-0 No Unknown 2-28 00:00: 00 Dose 2022-0 No Unknown 2-28 00:00: 00 Dose 2022-0 No Unknown 2-28 00:00: 00 Dose 2022-0 No Unknown 2-28 00:00: 00 Dose 2022-0 No Unknown 2-28 00:00: 00 Dose 2022-0 No Unknown 2-28 00:00: 00 Dose 2022-0 No Unknown 2-28 00:00: 00 Dose 2022-0 No Unknown 2-28 00:00: 00 Dose 2022-0 No Unknown 2-28 00:00: 00 Dose 2022-0 No Unknown 2-28 00:00: 00 Dose 2022-0 No Unknown 2-28 00:00: 00 Dose 2022-0 No Unknown 2-28 00:00: 00 Dose 2022-0 No Unknown 2-28 00:00: 00 Dose 2022-0 No Unknown 2-28 00:00: 00 Dose 2022-0 No Unknown 2-28 00:00: 00 Dose 2022-0 No Unknown 2-28 00:00: 00 Dose 2022-0 No Unknown 2-28 00:00: 00 Dose 2022-0 No Unknown 2-28 00:00: 00 Dose 2022-0 No Unknown 2-28 00:00: 00 Dose 2022-0 No Unknown 2-28 00:00: 00 Dose 2022-0 No Unknown 2-28 00:00: 00 Dose 2022-0 No Unknown 2-28 00:00: 00 Dose 2022-0 No Unknown 2-28 00:00: 00 Dose 2022-0 No Unknown 2-28 00:00: 00 Dose 2022-0 No Unknown 2-28 00:00: 00 Dose 2022-0 No Unknown 2-28 00:00: 00 Dose 2022-0 No Unknown 2-28 00:00: 00 Dose 2022-0 No Unknown 2-28 00:00: 00 Dose 2022-0 No Unknown 2-28 00:00: 00 Dose 2022-0 No Unknown 2-28 00:00: 00 Dose 2022-0 No Unknown 2-28 00:00: 00 Dose 2022-0 No Unknown 2-28 00:00: 00 Dose 2022-0 No Unknown 2-28 00:00: 00 Dose 2022-0 No Unknown 2-28 00:00: 00 Dose 2022-0 No Unknown 2-28 00:00: 00 Dose 2022-0 No Unknown 2-28 00:00: 00 Dose 2022-0 No Unknown 2-28 00:00: 00 Dose 2022-0 No Unknown 2-28 00:00: 00 Dose 2022-0 No Unknown 2-28 00:00: 00 Dose 2022-0 No Unknown 2-28 00:00: 00 Dose 2022-0 No Unknown 2-28 00:00: 00 Dose 2022-0 No Unknown 2-28 00:00: 00 Dose 2022-0 No Unknown 2-28 00:00: 00 Dose 2022-0 No Unknown 2-28 00:00: 00 Dose 2022-0 No Unknown 2-28 00:00: 00 Dose 2022-0 No Unknown 2-28 00:00: 00 Dose 2022-0 No Unknown 2-28 00:00: 00 Dose 2022-0 No Unknown 2-28 00:00: 00 Dose 2022-0 No Unknown 2-28 00:00: 00 Dose 2022-0 No Unknown 2-28 00:00: 00 Dose 2022-0 No Unknown 2-28 00:00: 00 Dose 2022-0 No Unknown 2-28 00:00: 00 Dose 2022-0 No Unknown 2-28 00:00: 00 Dose 2022-0 No Unknown 2-28 00:00: 00 Dose 2022-0 No Unknown 2-28 00:00: 00 Dose 2022-0 No Unknown 2-28 00:00: 00 Dose 2022-0 No Unknown 2-28 00:00: 00 Dose 2022-0 No Unknown 2-28 00:00: 00 Dose 2022-0 No Unknown 2-28 00:00: 00 Dose 2022-0 No Unknown 2-28 00:00: 00 Dose 2022-0 No Unknown 2-28 00:00: 00 Dose 2022-0 No Unknown 2-28 00:00: 00 Dose 2022-0 No Unknown 2-28 00:00: 00 Dose 2022-0 No Unknown 2-28 00:00: 00 Dose 2022-0 No Unknown 2-28 00:00: 00 Dose 2022-0 No Unknown 2-28 00:00: 00 Dose 2022-0 No Unknown 2-28 00:00: 00 Dose 2022-0 No Unknown 2-28 00:00: 00 Dose 2022-0 No Unknown 2-28 00:00: 00 Dose 2022-0 No Unknown 2-28 00:00: 00 Dose 2022-0 No Unknown 2-28 00:00: 00 Dose 2022-0 No Unknown 2-28 00:00: 00 Dose 2022-0 No Unknown 2-28 00:00: 00 Dose 2022-0 No Unknown 2-28 00:00: 00 Dose 2022-0 No Unknown 2-28 00:00: 00 Dose 2022-0 No Unknown 2-28 00:00: 00 Dose 2022-0 No Unknown 2-28 00:00: 00 EpiPen 0.3 2022-0 No mg/0.3 mg/0.3 mL 2-28 mL injection, 00:00: auto-inject 00 or Dose 2022-0 No Unknown 2-28 00:00: 00 Dose 2022-0 No Unknown 2-28 00:00: 00 Dose 2022-0 No Unknown 2-28 00:00: 00 Dose 2022-0 No Unknown 2-28 00:00: 00 Dose 2022-0 No Unknown 2-28 00:00: 00 Dose 2022-0 No Unknown 2-28 00:00: 00 Dose 2022-0 No Unknown 2-28 00:00: 00 Dose 2022-0 No Unknown 2-28 00:00: 00 Dose 2022-0 No Unknown 2-28 00:00: 00 Dose 2022-0 No Unknown 2-28 00:00: 00 Dose 2022-0 No Unknown 2-28 00:00: 00 Dose 2022-0 No Unknown 2-28 00:00: 00 Dose 2022-0 No Unknown 2-28 00:00: 00 Dose 2022-0 No Unknown 2-28 00:00: 00 Dose 2022-0 No Unknown 2-28 00:00: 00 Dose 2022-0 No Unknown 2-28 00:00: 00 Dose 2022-0 No Unknown 2-28 00:00: 00 Dose 2022-0 No Unknown 2-28 00:00: 00 Dose 2022-0 No Unknown 2-28 00:00: 00 EpiPen 0.3 2-0 No mg/0.3 mg/0.3 mL 2-28 mL injection, 00:00: auto-inject 00 or Dose 2022-0 No Unknown 2-28 00:00: 00 Dose 2022-0 No Unknown 2-28 00:00: 00 Dose 2022-0 No Unknown 2-28 00:00: 00 Dose 2022-0 No Unknown 2-28 00:00: 00 Dose 2022-0 No Unknown 2-28 00:00: 00 Dose 2022-0 No Unknown 2-28 00:00: 00 Dose 2022-0 No Unknown 2-28 00:00: 00 Dose 2022-0 No Unknown 2-28 00:00: 00 Dose 2022-0 No Unknown 2-28 00:00: 00 Dose 2022-0 No Unknown 2-28 00:00: 00 Dose 2022-0 No Unknown 2-28 00:00: 00 Dose 2022-0 No Unknown 2-28 00:00: 00 Dose 2022-0 No Unknown 2-28 00:00: 00 Dose 2022-0 No Unknown 2-28 00:00: 00 Dose 2022-0 No Unknown 2-28 00:00: 00 Dose 2022-0 No Unknown 2-28 00:00: 00 Dose 2022-0 No Unknown 2-28 00:00: 00 Dose 2022-0 No Unknown 2-28 00:00: 00 Dose 2022-0 No Unknown 2-28 00:00: 00 Dose 2022-0 No Unknown 2-28 00:00: 00 Dose 2022-0 No Unknown 2-28 00:00: 00 Dose 2022-0 No Unknown 2-28 00:00: 00 Dose 2022-0 No Unknown 2-28 00:00: 00 Dose 2022-0 No Unknown 2-28 00:00: 00 Dose 2022-0 No Unknown 2-28 00:00: 00 Dose 2022-0 No Unknown 2-28 00:00: 00 Dose 2022-0 No Unknown 2-28 00:00: 00 Dose 2022-0 No Unknown 2-28 00:00: 00 Dose 2022-0 No Unknown 2-28 00:00: 00 Dose 2022-0 No Unknown 2-28 00:00: 00 Dose 2022-0 No Unknown 2-28 00:00: 00 Dose 2022-0 No Unknown 2-28 00:00: 00 Dose 2022-0 No Unknown 2-28 00:00: 00 Dose 2022-0 No Unknown 2-28 00:00: 00 Dose 2022-0 No Unknown 2-28 00:00: 00 Dose 2022-0 No Unknown 2-28 00:00: 00 Dose 2022-0 No Unknown 2-28 00:00: 00 Dose 2022-0 No Unknown 2-28 00:00: 00 Dose 2022-0 No Unknown 2-28 00:00: 00 Dose 2022-0 No Unknown 2-28 00:00: 00 Dose 2022-0 No Unknown 2-28 00:00: 00 Dose 2022-0 No Unknown 2-28 00:00: 00 Dose 2022-0 No Unknown 2-28 00:00: 00 Dose 2022-0 No Unknown 2-28 00:00: 00 Dose 2022-0 No Unknown 2-28 00:00: 00 Dose 2022-0 No Unknown 2-28 00:00: 00 Dose 2022-0 No Unknown 2-28 00:00: 00 Dose 2022-0 No Unknown 2-28 00:00: 00 Dose 2022-0 No Unknown 2-28 00:00: 00 Dose 2022-0 No Unknown 2-28 00:00: 00 Dose 2022-0 No Unknown 2-28 00:00: 00 Dose 2022-0 No Unknown 2-28 00:00: 00 Dose 2022-0 No Unknown 2-28 00:00: 00 Dose 2022-0 No Unknown 2-28 00:00: 00 Dose 2022-0 No Unknown 2-28 00:00: 00 Dose 2022-0 No Unknown 2-28 00:00: 00 Dose 2022-0 No Unknown 2-28 00:00: 00 Dose 2022-0 No Unknown 2-28 00:00: 00 Dose 2022-0 No Unknown 2-28 00:00: 00 Dose 2022-0 No Unknown 2-28 00:00: 00 Dose 2022-0 No Unknown 2-28 00:00: 00 Dose 2022-0 No Unknown 2-28 00:00: 00 Dose 2022-0 No Unknown 2-28 00:00: 00 Dose 2022-0 No Unknown 2-28 00:00: 00 Dose 2022-0 No Unknown 2-28 00:00: 00 Dose 2022-0 No Unknown 2-28 00:00: 00 Dose 2022-0 No Unknown 2-28 00:00: 00 Dose 2022-0 No Unknown 2-28 00:00: 00 Dose 2022-0 No Unknown 2-28 00:00: 00 Dose 2022-0 No Unknown 2-28 00:00: 00 Dose 2022-0 No Unknown 2-28 00:00: 00 Dose 2022-0 No Unknown 2-28 00:00: 00 Dose 2022-0 No Unknown 2-28 00:00: 00 Dose 2022-0 No Unknown 2-28 00:00: 00 Dose 2022-0 No Unknown 2-28 00:00: 00 Dose 2022-0 No Unknown 2-28 00:00: 00 Dose 2022-0 No Unknown 2-28 00:00: 00 Dose 2022-0 No Unknown 2-28 00:00: 00 Dose 2022-0 No Unknown 2-28 00:00: 00 Dose 2022-0 No Unknown 2-28 00:00: 00 Dose 2022-0 No Unknown 2-28 00:00: 00 Dose 2022-0 No Unknown 2-28 00:00: 00 Dose 2022-0 No Unknown 2-28 00:00: 00 Dose 2022-0 No Unknown 2-28 00:00: 00 Dose 2022-0 No Unknown 2-28 00:00: 00 Dose 2022-0 No Unknown 2-28 00:00: 00 Dose 2022-0 No Unknown 2-28 00:00: 00 Dose 2022-0 No Unknown 2-28 00:00: 00 Dose 2022-0 No Unknown 2-28 00:00: 00 Dose 2022-0 No Unknown 2-28 00:00: 00 Dose 2022-0 No Unknown 2-28 00:00: 00 Dose 2022-0 No Unknown 2-28 00:00: 00 Dose 2022-0 No Unknown 2-28 00:00: 00 Dose 2022-0 No Unknown 2-28 00:00: 00 Dose 2022-0 No Unknown 2-28 00:00: 00 Dose 2022-0 No Unknown 2-28 00:00: 00 Dose 2022-0 No Unknown 2-28 00:00: 00 Dose 2022-0 No Unknown 2-28 00:00: 00 Dose 2022-0 No Unknown 2-28 00:00: 00 Dose 2022-0 No Unknown 2-28 00:00: 00 Dose 2022-0 No Unknown 2-28 00:00: 00 Dose 2022-0 No Unknown 2-28 00:00: 00 Dose 2022-0 No Unknown 2-28 00:00: 00 Dose 2022-0 No Unknown 2-28 00:00: 00 Dose 2022-0 No Unknown 2-28 00:00: 00 Dose 2022-0 No Unknown 2-28 00:00: 00 Dose 2022-0 No Unknown 2-28 00:00: 00 Dose 2022-0 No Unknown 2-28 00:00: 00 Dose 2022-0 No Unknown 2-28 00:00: 00 Dose 2022-0 No Unknown 2-28 00:00: 00 Dose 2022-0 No Unknown 2-28 00:00: 00 Dose 2022-0 No Unknown 2-28 00:00: 00 Dose 2022-0 No Unknown 2-28 00:00: 00 Dose 2022-0 No Unknown 2-28 00:00: 00 Dose 2022-0 No Unknown 2-28 00:00: 00 Dose 2022-0 No Unknown 2-28 00:00: 00 Dose 2022-0 No Unknown 2-28 00:00: 00 Dose 2022-0 No Unknown 2-28 00:00: 00 Dose 2022-0 No Unknown 2-28 00:00: 00 Dose 2022-0 No Unknown 2-28 00:00: 00 Dose 2022-0 No Unknown 2-28 00:00: 00 Dose 2022-0 No Unknown 2-28 00:00: 00 Dose 2022-0 No Unknown 2-28 00:00: 00 Dose 2022-0 No Unknown 2-28 00:00: 00 Dose 2022-0 No Unknown 2-28 00:00: 00 Dose 2022-0 No Unknown 2-28 00:00: 00 Dose 2022-0 No Unknown 2-28 00:00: 00 Dose 2022-0 No Unknown 2-28 00:00: 00 Dose 2022-0 No Unknown 2-28 00:00: 00 Dose 2022-0 No Unknown 2-28 00:00: 00 Dose 2022-0 No Unknown 2-28 00:00: 00 Dose 2022-0 No Unknown 2-28 00:00: 00 Dose 2022-0 No Unknown 2-28 00:00: 00 Dose 2022-0 No Unknown 2-28 00:00: 00 Dose 2022-0 No Unknown 2-28 00:00: 00 Dose 2022-0 No Unknown 2-28 00:00: 00 Dose 2022-0 No Unknown 2-28 00:00: 00 Dose 2022-0 No Unknown 2-28 00:00: 00 Dose 2022-0 No Unknown 2-28 00:00: 00 Dose 2022-0 No Unknown 2-28 00:00: 00 Dose 2022-0 No Unknown 2-28 00:00: 00 Dose 2022-0 No Unknown 2-28 00:00: 00 Dose 2022-0 No Unknown 2-28 00:00: 00 Dose 2022-0 No Unknown 2-28 00:00: 00 Dose 2022-0 No Unknown 2-28 00:00: 00 Dose 2022-0 No Unknown 2-28 00:00: 00 Dose 2022-0 No Unknown 2-28 00:00: 00 Dose 2022-0 No Unknown 2-28 00:00: 00 Dose 2022-0 No Unknown 2-28 00:00: 00 Dose 2022-0 No Unknown 2-28 00:00: 00 Dose 2022-0 No Unknown 2-28 00:00: 00 Dose 2022-0 No Unknown 2-28 00:00: 00 Dose 2022-0 No Unknown 2-28 00:00: 00 Dose 2022-0 No Unknown 2-28 00:00: 00 Dose 2022-0 No Unknown 2-28 00:00: 00 Dose 2022-0 No Unknown 2-28 00:00: 00 Dose 2022-0 No Unknown 2-28 00:00: 00 Dose 2022-0 No Unknown 2-28 00:00: 00 Dose 2022-0 No Unknown 2-28 00:00: 00 Dose 2022-0 No Unknown 2-28 00:00: 00 Dose 2022-0 No Unknown 2-28 00:00: 00 Dose 2022-0 No Unknown 2-28 00:00: 00 Dose 2022-0 No Unknown 2-28 00:00: 00 Dose 2022-0 No Unknown 2-28 00:00: 00 Dose 2022-0 No Unknown 2-28 00:00: 00 Dose 2022-0 No Unknown 2-28 00:00: 00 Dose 2022-0 No Unknown 2-28 00:00: 00 Dose 2022-0 No Unknown 2-28 00:00: 00 Dose 2022-0 No Unknown 2-28 00:00: 00 Dose 2022-0 No Unknown 2-28 00:00: 00 Dose 2022-0 No Unknown 2-28 00:00: 00 Dose 2022-0 No Unknown 2-28 00:00: 00 Dose 2022-0 No Unknown 2-28 00:00: 00 Dose 2022-0 No Unknown 2-25 00:00: 00 Dose 2022-0 No Unknown 2-25 00:00: 00 Dose 2022-0 No Unknown 2-25 00:00: 00 Dose 2022-0 No Unknown 2-25 00:00: 00 Dose 2022-0 No Unknown 2-25 00:00: 00 Dose 2022-0 No Unknown 2-25 00:00: 00 Dose 2022-0 No Unknown 2-25 00:00: 00 Dose 2022-0 No Unknown 2-25 00:00: 00 Dose 2022-0 No Unknown 2-25 00:00: 00 Dose 2022-0 No Unknown 2-25 00:00: 00 Dose 2022-0 No Unknown 2-25 00:00: 00 Dose 2022-0 No Unknown 2-25 00:00: 00 Dose 2022-0 No Unknown 2-25 00:00: 00 Dose 2022-0 No Unknown 2-25 00:00: 00 Dose 2022-0 No Unknown 2-25 00:00: 00 Dose 2022-0 No Unknown 2-25 00:00: 00 Dose 2022-0 No Unknown 2-25 00:00: 00 Dose 2022-0 No Unknown 2-25 00:00: 00 Dose 2022-0 No Unknown 2-25 00:00: 00 Dose 2022-0 No Unknown 2-25 00:00: 00 Dose 2022-0 No Unknown 2-25 00:00: 00 Dose 2022-0 No Unknown 2-25 00:00: 00 Dose 2022-0 No Unknown 2-25 00:00: 00 Dose 2022-0 No Unknown 2-25 00:00: 00 Dose 2022-0 No Unknown 2-25 00:00: 00 Dose 2022-0 No Unknown 2-25 00:00: 00 Dose 2022-0 No Unknown 2-25 00:00: 00 Dose 2022-0 No Unknown 2-25 00:00: 00 Dose 2022-0 No Unknown 2-25 00:00: 00 Dose 2022-0 No Unknown 2-25 00:00: 00 Dose 2022-0 No Unknown 2-25 00:00: 00 Dose 2022-0 No Unknown 2-25 00:00: 00 Dose 2022-0 No Unknown 2-25 00:00: 00 Dose 2022-0 No Unknown 2-25 00:00: 00 Dose 2022-0 No Unknown 2-25 00:00: 00 Dose 2022-0 No Unknown 2-25 00:00: 00 Dose 2022-0 No Unknown 2-25 00:00: 00 Dose 2022-0 No Unknown 2-25 00:00: 00 Dose 2022-0 No Unknown 2-25 00:00: 00 Dose 2022-0 No Unknown 2-25 00:00: 00 Dose 2022-0 No Unknown 2-25 00:00: 00 Dose 2022-0 No Unknown 2-25 00:00: 00 Dose 2022-0 No Unknown 2-25 00:00: 00 Dose 2022-0 No Unknown 2-25 00:00: 00 Dose 2022-0 No Unknown 2-25 00:00: 00 Dose 2022-0 No Unknown 2-25 00:00: 00 Dose 2022-0 No Unknown 2-25 00:00: 00 Dose 2022-0 No Unknown 2-25 00:00: 00 Dose 2022-0 No Unknown 2-25 00:00: 00 Dose 2022-0 No Unknown 2-25 00:00: 00 Dose 2022-0 No Unknown 2-25 00:00: 00 Dose 2022-0 No Unknown 2-25 00:00: 00 Dose 2022-0 No Unknown 2-25 00:00: 00 Dose 2022-0 No Unknown 2-25 00:00: 00 Dose 2022-0 No Unknown 2-25 00:00: 00 Dose 2022-0 No Unknown 2-25 00:00: 00 Dose 2022-0 No Unknown 2-25 00:00: 00 Dose 2022-0 No Unknown 2-25 00:00: 00 Dose 2022-0 No Unknown 2-25 00:00: 00 Dose 2022-0 No Unknown 2-25 00:00: 00 Dose 2022-0 No Unknown 2-25 00:00: 00 Dose 2022-0 No Unknown 2-25 00:00: 00 Dose 2022-0 No Unknown 2-25 00:00: 00 Dose 2022-0 No Unknown 2-25 00:00: 00 Dose 2022-0 No Unknown 2-25 00:00: 00 Dose 2022-0 No Unknown 2-25 00:00: 00 Dose 2022-0 No Unknown 2-25 00:00: 00 Dose 2022-0 No Unknown 2-25 00:00: 00 Dose 2022-0 No Unknown 2-25 00:00: 00 Dose 2022-0 No Unknown 2-25 00:00: 00 Dose 2022-0 No Unknown 2-25 00:00: 00 Dose 2022-0 No Unknown 2-25 00:00: 00 Dose 2022-0 No Unknown 2-25 00:00: 00 Dose 2022-0 No Unknown 2-25 00:00: 00 Dose 2022-0 No Unknown 2-25 00:00: 00 Dose 2022-0 No Unknown 2-25 00:00: 00 Dose 2022-0 No Unknown 2-25 00:00: 00 Dose 2022-0 No Unknown 2-25 00:00: 00 Dose 2022-0 No Unknown 2-25 00:00: 00 Dose 2022-0 No Unknown 2-25 00:00: 00 Dose 2022-0 No Unknown 2-25 00:00: 00 Dose 2022-0 No Unknown 2-25 00:00: 00 Dose 2022-0 No Unknown 2-25 00:00: 00 Dose 2022-0 No Unknown 2-25 00:00: 00 Dose 2022-0 No Unknown 2-25 00:00: 00 Dose 2022-0 No Unknown 2-25 00:00: 00 Dose 2022-0 No Unknown 2-25 00:00: 00 Dose 2022-0 No Unknown 2-25 00:00: 00 Dose 2022-0 No Unknown 2-25 00:00: 00 Dose 2022-0 No Unknown 2-25 00:00: 00 Dose 2022-0 No Unknown 2-25 00:00: 00 Dose 2022-0 No Unknown 2-25 00:00: 00 Dose 2022-0 No Unknown 2-25 00:00: 00 Dose 2022-0 No Unknown 2-25 00:00: 00 Dose 2022-0 No Unknown 2-25 00:00: 00 Dose 2022-0 No Unknown 2-25 00:00: 00 Dose 2022-0 No Unknown 2-25 00:00: 00 Dose 2022-0 No Unknown 2-25 00:00: 00 Dose 2022-0 No Unknown 2-25 00:00: 00 Dose 2022-0 No Unknown 2-25 00:00: 00 Dose 2022-0 No Unknown 2-25 00:00: 00 Dose 2022-0 No Unknown 2-25 00:00: 00 Dose 2022-0 No Unknown 2-25 00:00: 00 Dose 2022-0 No Unknown 2-25 00:00: 00 Dose 2022-0 No Unknown 2-25 00:00: 00 Dose 2022-0 No Unknown 2-25 00:00: 00 Dose 2022-0 No Unknown 2-25 00:00: 00 Dose 2022-0 No Unknown 2-25 00:00: 00 Dose 2022-0 No Unknown 2-25 00:00: 00 Dose 2022-0 No Unknown 2-25 00:00: 00 Dose 2022-0 No Unknown 2-25 00:00: 00 Dose 2022-0 No Unknown 2-25 00:00: 00 Dose 2022-0 No Unknown 2-25 00:00: 00 Dose 2022-0 No Unknown 2-25 00:00: 00 Dose 2022-0 No Unknown 2-25 00:00: 00 Dose 2022-0 No Unknown 2-25 00:00: 00 Dose 2022-0 No Unknown 2-25 00:00: 00 Dose 2022-0 No Unknown 2-25 00:00: 00 Dose 2022-0 No Unknown 2-25 00:00: 00 Dose 2022-0 No Unknown 2-25 00:00: 00 Dose 2022-0 No Unknown 2-25 00:00: 00 Dose 2022-0 No Unknown 2-25 00:00: 00 Dose 2022-0 No Unknown 2-25 00:00: 00 Dose 2022-0 No Unknown 2-25 00:00: 00 Dose 2022-0 No Unknown 2-25 00:00: 00 Dose 2022-0 No Unknown 2-25 00:00: 00 Dose 2022-0 No Unknown 2-25 00:00: 00 Dose 2022-0 No Unknown 2-25 00:00: 00 Dose 2022-0 No Unknown 2-25 00:00: 00 Dose 2022-0 No Unknown 2-25 00:00: 00 Dose 2022-0 No Unknown 2-25 00:00: 00 Dose 2022-0 No Unknown 2-25 00:00: 00 Dose 2022-0 No Unknown 2-25 00:00: 00 Dose 2022-0 No Unknown 2-25 00:00: 00 Dose 2022-0 No Unknown 2-25 00:00: 00 Dose 2022-0 No Unknown 2-25 00:00: 00 Dose 2022-0 No Unknown 2-25 00:00: 00 Dose 2022-0 No Unknown 2-25 00:00: 00 Dose 2022-0 No Unknown 2-25 00:00: 00 Dose 2022-0 No Unknown 2-25 00:00: 00 Dose 2022-0 No Unknown 2-25 00:00: 00 Dose 2022-0 No Unknown 2-25 00:00: 00 Dose 2022-0 No Unknown 2-25 00:00: 00 Dose 2022-0 No Unknown 2-25 00:00: 00 Dose 2022-0 No Unknown 2-25 00:00: 00 Dose 2022-0 No Unknown 2-25 00:00: 00 Dose 2022-0 No Unknown 2-25 00:00: 00 Dose 2022-0 No Unknown 2-25 00:00: 00 Dose 2022-0 No Unknown 2-25 00:00: 00 Dose 2022-0 No Unknown 2-25 00:00: 00 Dose 2022-0 No Unknown 2-25 00:00: 00 Dose 2022-0 No Unknown 2-25 00:00: 00 Dose 2022-0 No Unknown 2-25 00:00: 00 Dose 2022-0 No Unknown 2-25 00:00: 00 Dose 2022-0 No Unknown 2-25 00:00: 00 Dose 2022-0 No Unknown 2-25 00:00: 00 Dose 2022-0 No Unknown 2-25 00:00: 00 Dose 2022-0 No Unknown 2-25 00:00: 00 Dose 2022-0 No Unknown 2-25 00:00: 00 Dose 2022-0 No Unknown 2-25 00:00: 00 Dose 2022-0 No Unknown 2-25 00:00: 00 Dose 2022-0 No Unknown 2-25 00:00: 00 Dose 2022-0 No Unknown 2-25 00:00: 00 Dose 2022-0 No Unknown 2-25 00:00: 00 Dose 2022-0 No Unknown 2-25 00:00: 00 Dose 2022-0 No Unknown 2-25 00:00: 00 Dose 2022-0 No Unknown 2-25 00:00: 00 Dose 2022-0 No Unknown 2-25 00:00: 00 Dose 2022-0 No Unknown 2-25 00:00: 00 Dose 2022-0 No Unknown 2-25 00:00: 00 Dose 2022-0 No Unknown 2-25 00:00: 00 Dose 2022-0 No Unknown 2-25 00:00: 00 Dose 2022-0 No Unknown 2-25 00:00: 00 Dose 2022-0 No Unknown 2-25 00:00: 00 Dose 2022-0 No Unknown 2-25 00:00: 00 Dose 2022-0 No Unknown 2-25 00:00: 00 Dose 2022-0 No Unknown 2-25 00:00: 00 Dose 2022-0 No Unknown 2-25 00:00: 00 Dose 2022-0 No Unknown 2-25 00:00: 00 Dose 2022-0 No Unknown 2-25 00:00: 00 Dose 2022-0 No Unknown 2-25 00:00: 00 Dose 2022-0 No Unknown 2-25 00:00: 00 Dose 2022-0 No Unknown 2-25 00:00: 00 Dose 2022-0 No Unknown 2-25 00:00: 00 Dose 2022-0 No Unknown 2-25 00:00: 00 Dose 2022-0 No Unknown 2-25 00:00: 00 Dose 2022-0 No Unknown 2-25 00:00: 00 Dose 2022-0 No Unknown 2-25 00:00: 00 Dose 2022-0 No Unknown 2-25 00:00: 00 Dose 2022-0 No Unknown 2-25 00:00: 00 Dose 2022-0 No Unknown 2-25 00:00: 00 Dose 2022-0 No Unknown 2-25 00:00: 00 Dose 2022-0 No Unknown 2-25 00:00: 00 Dose 2022-0 No Unknown 2-25 00:00: 00 Dose 2022-0 No Unknown 2-25 00:00: 00 Dose 2022-0 No Unknown 2-25 00:00: 00 Dose 2022-0 No Unknown 2-25 00:00: 00 Dose 2022-0 No Unknown 2-25 00:00: 00 Dose 2022-0 No Unknown 2-25 00:00: 00 Dose 2022-0 No Unknown 2-25 00:00: 00 Dose 2022-0 No Unknown 2-25 00:00: 00 Dose 2022-0 No Unknown 2-25 00:00: 00 Dose 2022-0 No Unknown 2-25 00:00: 00 Dose 2022-0 No Unknown 2-25 00:00: 00 Dose 2022-0 No Unknown 2-25 00:00: 00 Dose 2022-0 No Unknown 2-25 00:00: 00 Dose 2022-0 No Unknown 2-25 00:00: 00 Dose 2022-0 No Unknown 2-25 00:00: 00 Dose 2022-0 No Unknown 2-25 00:00: 00 Dose 2022-0 No Unknown 2-25 00:00: 00 Dose 2022-0 No Unknown 2-25 00:00: 00 Dose 2022-0 No Unknown 2-25 00:00: 00 Dose 2022-0 No Unknown 2-25 00:00: 00 Dose 2022-0 No Unknown 2-25 00:00: 00 Dose 2022-0 No Unknown 2-25 00:00: 00 Dose 2022-0 No Unknown 2-25 00:00: 00 Dose 2022-0 No Unknown 2-25 00:00: 00 Dose 2022-0 No Unknown 2-25 00:00: 00 Dose 2022-0 No Unknown 2-25 00:00: 00 Dose 2022-0 No Unknown 2-25 00:00: 00 Dose 2022-0 No Unknown 2-25 00:00: 00 Dose 2022-0 No Unknown 2-25 00:00: 00 Dose 2022-0 No Unknown 2-25 00:00: 00 Dose 2022-0 No Unknown 2-25 00:00: 00 Dose 2022-0 No Unknown 2-25 00:00: 00 Dose 2022-0 No Unknown 2-25 00:00: 00 Dose 2022-0 No Unknown 2-25 00:00: 00 Dose 2022-0 No Unknown 2-25 00:00: 00 Dose 2022-0 No Unknown 2-25 00:00: 00 Dose 2022-0 No Unknown 2-25 00:00: 00 Dose 2022-0 No Unknown 2-25 00:00: 00 Dose 2022-0 No Unknown 2-25 00:00: 00 Dose 2022-0 No Unknown 2-25 00:00: 00 Dose 2022-0 No Unknown 2-25 00:00: 00 Dose 2022-0 No Unknown 2-25 00:00: 00 Dose 2022-0 No Unknown 2-25 00:00: 00 Dose 2022-0 No Unknown 2-25 00:00: 00 Dose 2022-0 No Unknown 2-25 00:00: 00 Dose 2022-0 No Unknown 2-25 00:00: 00 Dose 2022-0 No Unknown 2-25 00:00: 00 Dose 2022-0 No Unknown 2-25 00:00: 00 Dose 2022-0 No Unknown 2-25 00:00: 00 Dose 2022-0 No Unknown 2-25 00:00: 00 Dose 2022-0 No Unknown 2-25 00:00: 00 Dose 2022-0 No Unknown 2-25 00:00: 00 Dose 2022-0 No Unknown 2-25 00:00: 00 Dose 2022-0 No Unknown 2-25 00:00: 00 Dose 2022-0 No Unknown 2-25 00:00: 00 Dose 2022-0 No Unknown 2-25 00:00: 00 Dose 2022-0 No Unknown 2-25 00:00: 00 Dose 2022-0 No Unknown 2-25 00:00: 00 Dose 2022-0 No Unknown 2-25 00:00: 00 Dose 2022-0 No Unknown 2-25 00:00: 00 Dose 2022-0 No Unknown 2-25 00:00: 00 Dose 2022-0 No Unknown 2-25 00:00: 00 Dose 2022-0 No Unknown 2-25 00:00: 00 Dose 2022-0 No Unknown 2-25 00:00: 00 Dose 2022-0 No Unknown 2-25 00:00: 00 Dose 2022-0 No Unknown 2-25 00:00: 00 Dose 2022-0 No Unknown 2-25 00:00: 00 Dose 2022-0 No Unknown 2-25 00:00: 00 Dose 2022-0 No Unknown 2-25 00:00: 00 Dose 2022-0 No Unknown 2-25 00:00: 00 Dose 2022-0 No Unknown 2-25 00:00: 00 Dose 2022-0 No Unknown 2-25 00:00: 00 Dose 2022-0 No Unknown 2-25 00:00: 00 Dose 2022-0 No Unknown 2-25 00:00: 00 Dose 2022-0 No Unknown 2-25 00:00: 00 Dose 2022-0 No Unknown 2-25 00:00: 00 Dose 2022-0 No Unknown 2-25 00:00: 00 Dose 2022-0 No Unknown 2-25 00:00: 00 Dose 2022-0 No Unknown 2-25 00:00: 00 Dose 2022-0 No Unknown 2-25 00:00: 00 Dose 2022-0 No Unknown 2-25 00:00: 00 Dose 2022-0 No Unknown 2-25 00:00: 00 Dose 2022-0 No Unknown 2-25 00:00: 00 Dose 2022-0 No Unknown 2-25 00:00: 00 Dose 2022-0 No Unknown 2-25 00:00: 00 Dose 2022-0 No Unknown 2-25 00:00: 00 Dose 2022-0 No Unknown 2-25 00:00: 00 Dose 2022-0 No Unknown 2-25 00:00: 00 Dose 2022-0 No Unknown 2-25 00:00: 00 Dose 2022-0 No Unknown 2-25 00:00: 00 Dose 2022-0 No Unknown 2-25 00:00: 00 Dose 2022-0 No Unknown 2-25 00:00: 00 Dose 2022-0 No Unknown 2-25 00:00: 00 Dose 2022-0 No Unknown 2-25 00:00: 00 Dose 2022-0 No Unknown 2-25 00:00: 00 Dose 2022-0 No Unknown 2-23 00:00: 00 Dose 2022-0 No Unknown 2-23 00:00: 00 Dose 2022-0 No Unknown 2-23 00:00: 00 Dose 2022-0 No Unknown 2-23 00:00: 00 Dose 2022-0 No Unknown 2-23 00:00: 00 Dose 2022-0 No Unknown 2-23 00:00: 00 Dose 2022-0 No Unknown 2-23 00:00: 00 Dose 2022-0 No Unknown 2-23 00:00: 00 Dose 2022-0 No Unknown 2-23 00:00: 00 Dose 2022-0 No Unknown 2-23 00:00: 00 Dose 2022-0 No Unknown 2-23 00:00: 00 Dose 2022-0 No Unknown 2-23 00:00: 00 Dose 2022-0 No Unknown 2-23 00:00: 00 Dose 2022-0 No Unknown 2-23 00:00: 00 Dose 2022-0 No Unknown 2-23 00:00: 00 Dose 2022-0 No Unknown 2-23 00:00: 00 Dose 2022-0 No Unknown 2-23 00:00: 00 Dose 2022-0 No Unknown 2-23 00:00: 00 Dose 2022-0 No Unknown 2-23 00:00: 00 Dose 2022-0 No Unknown 2-23 00:00: 00 Dose 2022-0 No Unknown 2-23 00:00: 00 Dose 2022-0 No Unknown 2-23 00:00: 00 Dose 2022-0 No Unknown 2-23 00:00: 00 Dose 2022-0 No Unknown 2-23 00:00: 00 Dose 2022-0 No Unknown 2-23 00:00: 00 Dose 2022-0 No Unknown 2-23 00:00: 00 Dose 2022-0 No Unknown 2-23 00:00: 00 Dose 2022-0 No Unknown 2-23 00:00: 00 Dose 2022-0 No Unknown 2-23 00:00: 00 Dose 2022-0 No Unknown 2-23 00:00: 00 Dose 2022-0 No Unknown 2-23 00:00: 00 Dose 2022-0 No Unknown 2-23 00:00: 00 Dose 2022-0 No Unknown 2-23 00:00: 00 Dose 2022-0 No Unknown 2-23 00:00: 00 Dose 2022-0 No Unknown 2-23 00:00: 00 Dose 2022-0 No Unknown 2-23 00:00: 00 Dose 2022-0 No Unknown 2-23 00:00: 00 Dose 2022-0 No Unknown 2-23 00:00: 00 Dose 2022-0 No Unknown 2-23 00:00: 00 Dose 2022-0 No Unknown 2-23 00:00: 00 Dose 2022-0 No Unknown 2-23 00:00: 00 Dose 2022-0 No Unknown 2-23 00:00: 00 Dose 2022-0 No Unknown 2-23 00:00: 00 Dose 2022-0 No Unknown 2-23 00:00: 00 Dose 2022-0 No Unknown 2-23 00:00: 00 Dose 2022-0 No Unknown 2-23 00:00: 00 Dose 2022-0 No Unknown 2-23 00:00: 00 Dose 2022-0 No Unknown 2-23 00:00: 00 Dose 2022-0 No Unknown 2-23 00:00: 00 Dose 2022-0 No Unknown 2-23 00:00: 00 Dose 2022-0 No Unknown 2-23 00:00: 00 Dose 2022-0 No Unknown 2-23 00:00: 00 Dose 2022-0 No Unknown 2-23 00:00: 00 Dose 2022-0 No Unknown 2-23 00:00: 00 Dose 2022-0 No Unknown 2-23 00:00: 00 Dose 2022-0 No Unknown 2-23 00:00: 00 Dose 2022-0 No Unknown 2-23 00:00: 00 Dose 2022-0 No Unknown 2-23 00:00: 00 Dose 2022-0 No Unknown 2-23 00:00: 00 Dose 2022-0 No Unknown 2-23 00:00: 00 Dose 2022-0 No Unknown 2-23 00:00: 00 Dose 2022-0 No Unknown 2-23 00:00: 00 Dose 2022-0 No Unknown 2-23 00:00: 00 Dose 2022-0 No Unknown 2-23 00:00: 00 Dose 2022-0 No Unknown 2-23 00:00: 00 Dose 2022-0 No Unknown 2-23 00:00: 00 Dose 2022-0 No Unknown 2-23 00:00: 00 Dose 2022-0 No Unknown 2-23 00:00: 00 Dose 2022-0 No Unknown 2-23 00:00: 00 Dose 2022-0 No Unknown 2-23 00:00: 00 Dose 2022-0 No Unknown 2-23 00:00: 00 Dose 2022-0 No Unknown 2-23 00:00: 00 Dose 2022-0 No Unknown 2-23 00:00: 00 Dose 2022-0 No Unknown 2-23 00:00: 00 Dose 2022-0 No Unknown 2-23 00:00: 00 Dose 2022-0 No Unknown 2-23 00:00: 00 Dose 2022-0 No Unknown 2-23 00:00: 00 Dose 2022-0 No Unknown 2-23 00:00: 00 Dose 2022-0 No Unknown 2-23 00:00: 00 Dose 2022-0 No Unknown 2-23 00:00: 00 Dose 2022-0 No Unknown 2-23 00:00: 00 Dose 2022-0 No Unknown 2-23 00:00: 00 Dose 2022-0 No Unknown 2-23 00:00: 00 Dose 2022-0 No Unknown 2-23 00:00: 00 Dose 2022-0 No Unknown 2-23 00:00: 00 Dose 2022-0 No Unknown 2-23 00:00: 00 Dose 2022-0 No Unknown 2-23 00:00: 00 Dose 2022-0 No Unknown 2-23 00:00: 00 Dose 2022-0 No Unknown 2-23 00:00: 00 Dose 2022-0 No Unknown 2-23 00:00: 00 Dose 2022-0 No Unknown 2-23 00:00: 00 Dose 2022-0 No Unknown 2-23 00:00: 00 Dose 2022-0 No Unknown 2-23 00:00: 00 Dose 2022-0 No Unknown 2-23 00:00: 00 Dose 2022-0 No Unknown 2-23 00:00: 00 Dose 2022-0 No Unknown 2-23 00:00: 00 Dose 2022-0 No Unknown 2-23 00:00: 00 Dose 2022-0 No Unknown 2-23 00:00: 00 Dose 2022-0 No Unknown 2-23 00:00: 00 Dose 2022-0 No Unknown 2-23 00:00: 00 Dose 2022-0 No Unknown 2-23 00:00: 00 Dose 2022-0 No Unknown 2-23 00:00: 00 Dose 2022-0 No Unknown 2-23 00:00: 00 Dose 2022-0 No Unknown 2-23 00:00: 00 Dose 2022-0 No Unknown 2-23 00:00: 00 Dose 2022-0 No Unknown 2-23 00:00: 00 Dose 2022-0 No Unknown 2-23 00:00: 00 Dose 2022-0 No Unknown 2-23 00:00: 00 Dose 2022-0 No Unknown 2-23 00:00: 00 Dose 2022-0 No Unknown 2-23 00:00: 00 Dose 2022-0 No Unknown 2-23 00:00: 00 Dose 2022-0 No Unknown 2-23 00:00: 00 Dose 2022-0 No Unknown 2-23 00:00: 00 Dose 2022-0 No Unknown 2-23 00:00: 00 Dose 2022-0 No Unknown 2-23 00:00: 00 Dose 2022-0 No Unknown 2-23 00:00: 00 Dose 2022-0 No Unknown 2-23 00:00: 00 Dose 2022-0 No Unknown 2-23 00:00: 00 Dose 2022-0 No Unknown 2-23 00:00: 00 Dose 2022-0 No Unknown 2-23 00:00: 00 Dose 2022-0 No Unknown 2-23 00:00: 00 Dose 2022-0 No Unknown 2-23 00:00: 00 Dose 2022-0 No Unknown 2-23 00:00: 00 Dose 2022-0 No Unknown 2-23 00:00: 00 Dose 2022-0 No Unknown 2-23 00:00: 00 Dose 2022-0 No Unknown 2-23 00:00: 00 Dose 2022-0 No Unknown 2-23 00:00: 00 Dose 2022-0 No Unknown 2-23 00:00: 00 Dose 2022-0 No Unknown 2-23 00:00: 00 Dose 2022-0 No Unknown 2-23 00:00: 00 Dose 2022-0 No Unknown 2-23 00:00: 00 Dose 2022-0 No Unknown 2-23 00:00: 00 Dose 2022-0 No Unknown 2-23 00:00: 00 Dose 2022-0 No Unknown 2-23 00:00: 00 Dose 2022-0 No Unknown 2-23 00:00: 00 Dose 2022-0 No Unknown 2-23 00:00: 00 Dose 2022-0 No Unknown 2-23 00:00: 00 Dose 2022-0 No Unknown 2-23 00:00: 00 Dose 2022-0 No Unknown 2-23 00:00: 00 Dose 2022-0 No Unknown 2-23 00:00: 00 Dose 2022-0 No Unknown 2-23 00:00: 00 Dose 2022-0 No Unknown 2-23 00:00: 00 Dose 2022-0 No Unknown 2-23 00:00: 00 Dose 2-0 No Unknown 2-23 00:00: 00 amlodipine 2-0 No 1mg 5 mg tablet 2-22 00:00: 00 Invokana 2-0 No 1mg 100 mg 2-22 tablet 00:00: 00 Dose 2-0 No Unknown 2-22 00:00: 00 lactulose 2-0 No 15gram/ 10 gram/15 2-22 15 mL mL oral 00:00: solution 00 Dose 2-0 No Unknown 2-22 00:00: 00 Dose 2-0 No Unknown 2-22 00:00: 00 Dose 2022-0 No Unknown 2-22 00:00: 00 Dose 2-0 No Unknown 2-22 00:00: 00 Dose 2-0 No Unknown 2-22 00:00: 00 Dose 2-0 No Unknown 2-22 00:00: 00 Dose 2-0 No Unknown 2-22 00:00: 00 Dose 2022-0 No Unknown 2-22 00:00: 00 Dose 2022-0 No Unknown 2-22 00:00: 00 Dose 2022-0 No Unknown 2-22 00:00: 00 Dose 2022-0 No Unknown 2-22 00:00: 00 Dose 2022-0 No Unknown 2-22 00:00: 00 Dose 2022-0 No Unknown 2-22 00:00: 00 Dose 2022-0 No Unknown 2-22 00:00: 00 Dose 2022-0 No Unknown 2-22 00:00: 00 Dose 2022-0 No Unknown 2-22 00:00: 00 Dose 2022-0 No Unknown 2-22 00:00: 00 Dose 2022-0 No Unknown 2-22 00:00: 00 Dose 2022-0 No Unknown 2-22 00:00: 00 Dose 2022-0 No Unknown 2-22 00:00: 00 Dose 2022-0 No Unknown 2-22 00:00: 00 Dose 2-0 No Unknown 2-22 00:00: 00 Dose 2-0 No Unknown 2-22 00:00: 00 Dose 2022-0 No Unknown 2-22 00:00: 00 Dose 2022-0 No Unknown 2-22 00:00: 00 Dose 2022-0 No Unknown 2-22 00:00: 00 Dose 2022-0 No Unknown 2-22 00:00: 00 Dose 2-0 No Unknown 2-22 00:00: 00 Dose 2-0 No Unknown 2-22 00:00: 00 Dose 2-0 No Unknown 2-22 00:00: 00 Dose 2-0 No Unknown 2-22 00:00: 00 Dose 2-0 No Unknown 2-22 00:00: 00 Dose 2-0 No Unknown 2-22 00:00: 00 Dose 2-0 No Unknown 2-22 00:00: 00 Dose 2-0 No Unknown 2-22 00:00: 00 Dose 2-0 No Unknown 2-22 00:00: 00 Dose 2-0 No Unknown 2-22 00:00: 00 Dose 2-0 No Unknown 2-22 00:00: 00 Dose 2-0 No Unknown 2-22 00:00: 00 Dose 2-0 No Unknown 2-22 00:00: 00 Dose 2-0 No Unknown 2-22 00:00: 00 Dose 2-0 No Unknown 2-22 00:00: 00 amlodipine 2-0 No 1mg 5 mg tablet 2-22 00:00: 00 Invokana 2-0 No 1mg 100 mg 2-22 tablet 00:00: 00 Dose 2-0 No Unknown 2-22 00:00: 00 lactulose 2-0 No 15gram/ 10 gram/15 2-22 15 mL mL oral 00:00: solution 00 Dose 2-0 No Unknown 2-22 00:00: 00 Dose 2-0 No Unknown 2-22 00:00: 00 Dose 2-0 No Unknown 2-22 00:00: 00 Dose 2-0 No Unknown 2-22 00:00: 00 Dose 2-0 No Unknown 2-22 00:00: 00 Dose 2022-0 No Unknown 2-22 00:00: 00 Dose 2022-0 No Unknown 2-22 00:00: 00 Dose 2022-0 No Unknown 2-22 00:00: 00 Dose 2022-0 No Unknown 2-22 00:00: 00 Dose 2022-0 No Unknown 2-22 00:00: 00 Dose 2022-0 No Unknown 2-22 00:00: 00 Dose 2022-0 No Unknown 2-22 00:00: 00 Dose 2022-0 No Unknown 2-22 00:00: 00 Dose 2022-0 No Unknown 2-22 00:00: 00 Dose 2022-0 No Unknown 2-22 00:00: 00 Dose 2022-0 No Unknown 2-22 00:00: 00 Dose 2022-0 No Unknown 2-22 00:00: 00 Dose 2022-0 No Unknown 2-22 00:00: 00 Dose 2022-0 No Unknown 2-22 00:00: 00 Dose 2022-0 No Unknown 2-22 00:00: 00 Dose 2022-0 No Unknown 2-22 00:00: 00 Dose 2022-0 No Unknown 2-22 00:00: 00 Dose 2022-0 No Unknown 2-22 00:00: 00 Dose 2022-0 No Unknown 2-22 00:00: 00 Dose 2022-0 No Unknown 2-22 00:00: 00 Dose 2022-0 No Unknown 2-22 00:00: 00 Dose 2022-0 No Unknown 2-22 00:00: 00 Dose 2022-0 No Unknown 2-22 00:00: 00 Dose 2022-0 No Unknown 2-22 00:00: 00 Dose 2022-0 No Unknown 2-22 00:00: 00 Dose 2022-0 No Unknown 2-22 00:00: 00 Dose 2022-0 No Unknown 2-22 00:00: 00 Dose 2022-0 No Unknown 2-22 00:00: 00 Dose 2022-0 No Unknown 2-22 00:00: 00 Dose 2022-0 No Unknown 2-22 00:00: 00 Dose 2022-0 No Unknown 2-22 00:00: 00 Dose 2022-0 No Unknown 2-22 00:00: 00 Dose 2022-0 No Unknown 2-22 00:00: 00 Dose 2022-0 No Unknown 2-22 00:00: 00 Dose 2022-0 No Unknown 2-22 00:00: 00 Dose 2022-0 No Unknown 2-22 00:00: 00 Dose 2-0 No Unknown 2-22 00:00: 00 amlodipine 2-0 No 1mg 5 mg tablet 2-22 00:00: 00 Invokana 2-0 No 1mg 100 mg 2-22 tablet 00:00: 00 Dose 2-0 No Unknown 2-22 00:00: 00 lactulose 2-0 No 15gram/ 10 gram/15 2-22 15 mL mL oral 00:00: solution 00 Dose 2-0 No Unknown 2-22 00:00: 00 Dose 2-0 No Unknown 2-22 00:00: 00 Dose 2-0 No Unknown 2-22 00:00: 00 Dose 2-0 No Unknown 2-22 00:00: 00 Dose 2-0 No Unknown 2-22 00:00: 00 Dose 2-0 No Unknown 2-22 00:00: 00 Dose 2-0 No Unknown 2-22 00:00: 00 Dose 2022-0 No Unknown 2-22 00:00: 00 Dose 2-0 No Unknown 2-22 00:00: 00 Dose 2-0 No Unknown 2-22 00:00: 00 Dose 2-0 No Unknown 2-22 00:00: 00 Dose 2-0 No Unknown 2-22 00:00: 00 Dose 2022-0 No Unknown 2-22 00:00: 00 Dose 2022-0 No Unknown 2-22 00:00: 00 Dose 2022-0 No Unknown 2-22 00:00: 00 Dose 2-0 No Unknown 2-22 00:00: 00 Dose 2022-0 No Unknown 2-22 00:00: 00 Dose 2022-0 No Unknown 2-22 00:00: 00 Dose 2-0 No Unknown 2-22 00:00: 00 Dose 2022-0 No Unknown 2-22 00:00: 00 Dose 2022-0 No Unknown 2-22 00:00: 00 Dose 2022-0 No Unknown 2-22 00:00: 00 Dose 2022-0 No Unknown 2-22 00:00: 00 Dose 2022-0 No Unknown 2-22 00:00: 00 Dose 2022-0 No Unknown 2-22 00:00: 00 Dose 2022-0 No Unknown 2-22 00:00: 00 Dose 2022-0 No Unknown 2-22 00:00: 00 Dose 2022-0 No Unknown 2-22 00:00: 00 Dose 2022-0 No Unknown 2-22 00:00: 00 Dose 2022-0 No Unknown 2-22 00:00: 00 Dose 2022-0 No Unknown 2-22 00:00: 00 Dose 2022-0 No Unknown 2-22 00:00: 00 Dose 2022-0 No Unknown 2-22 00:00: 00 Dose 2-0 No Unknown 2-22 00:00: 00 Dose 2-0 No Unknown 2-22 00:00: 00 Dose 2-0 No Unknown 2-22 00:00: 00 Dose 2-0 No Unknown 2-22 00:00: 00 Dose 2-0 No Unknown 2-22 00:00: 00 Dose 2-0 No Unknown 2-22 00:00: 00 Dose 2-0 No Unknown 2-22 00:00: 00 Dose 2-0 No Unknown 2-22 00:00: 00 Dose 2-0 No Unknown 2-22 00:00: 00 amlodipine 2-0 No 1mg 5 mg tablet 2-22 00:00: 00 Invokana 2-0 No 1mg 100 mg 2-22 tablet 00:00: 00 Dose 2-0 No Unknown 2-22 00:00: 00 lactulose 2-0 No 15gram/ 10 gram/15 2-22 15 mL mL oral 00:00: solution 00 Dose 2-0 No Unknown 2-22 00:00: 00 Dose 2-0 No Unknown 2-22 00:00: 00 Dose 2-0 No Unknown 2-22 00:00: 00 Dose 2-0 No Unknown 2-22 00:00: 00 Dose 2-0 No Unknown 2-22 00:00: 00 Dose 2-0 No Unknown 2-22 00:00: 00 Dose 2022-0 No Unknown 2-22 00:00: 00 Dose 2022-0 No Unknown 2-22 00:00: 00 Dose 2022-0 No Unknown 2-22 00:00: 00 Dose 2022-0 No Unknown 2-22 00:00: 00 Dose 2022-0 No Unknown 2-22 00:00: 00 Dose 2022-0 No Unknown 2-22 00:00: 00 Dose 2022-0 No Unknown 2-22 00:00: 00 Dose 2022-0 No Unknown 2-22 00:00: 00 Dose 2022-0 No Unknown 2-22 00:00: 00 Dose 2022-0 No Unknown 2-22 00:00: 00 Dose 2022-0 No Unknown 2-22 00:00: 00 Dose 2022-0 No Unknown 2-22 00:00: 00 Dose 2022-0 No Unknown 2-22 00:00: 00 Dose 2022-0 No Unknown 2-22 00:00: 00 Dose 2022-0 No Unknown 2-22 00:00: 00 Dose 2022-0 No Unknown 2-22 00:00: 00 Dose 2022-0 No Unknown 2-22 00:00: 00 Dose 2022-0 No Unknown 2-22 00:00: 00 Dose 2022-0 No Unknown 2-22 00:00: 00 Dose 2022-0 No Unknown 2-22 00:00: 00 Dose 2022-0 No Unknown 2-22 00:00: 00 Dose 2022-0 No Unknown 2-22 00:00: 00 Dose 2022-0 No Unknown 2-22 00:00: 00 Dose 2022-0 No Unknown 2-22 00:00: 00 Dose 2022-0 No Unknown 2-22 00:00: 00 Dose 2022-0 No Unknown 2-22 00:00: 00 Dose 2022-0 No Unknown 2-22 00:00: 00 Dose 2022-0 No Unknown 2-22 00:00: 00 Dose 2022-0 No Unknown 2-22 00:00: 00 Dose 2022-0 No Unknown 2-22 00:00: 00 Dose 2022-0 No Unknown 2-22 00:00: 00 Dose 2022-0 No Unknown 2-22 00:00: 00 Dose 2022-0 No Unknown 2-22 00:00: 00 Dose 2022-0 No Unknown 2-22 00:00: 00 Dose 2022-0 No Unknown 2-22 00:00: 00 Dose 2022-0 No Unknown 2-22 00:00: 00 Dose 2022-0 No Unknown 2-19 00:00: 00 Dose 2022-0 No Unknown 2-19 00:00: 00 Dose 2022-0 No Unknown 2-19 00:00: 00 Dose 2022-0 No Unknown 2-19 00:00: 00 Dose 2022-0 No Unknown 2-19 00:00: 00 Dose 2022-0 No Unknown 2-19 00:00: 00 Dose 2022-0 No Unknown 2-19 00:00: 00 Dose 2022-0 No Unknown 2-19 00:00: 00 Dose 2022-0 No Unknown 2-19 00:00: 00 Dose 2022-0 No Unknown 2-19 00:00: 00 Dose 2022-0 No Unknown 2-19 00:00: 00 Dose 2022-0 No Unknown 2-19 00:00: 00 ezetimibe 2022-0 No 1mg 10 mg 1-13 tablet 00:00: 00 Dose 2022-0 No Unknown 1-13 00:00: 00 Dose 2022-0 No Unknown 1-13 00:00: 00 lisinopril 2022-0 No 1mg 10 mg 1-13 tablet 00:00: 00 Dose 2022-0 No Unknown 1-13 00:00: 00 Dose 2022-0 No Unknown 1-13 00:00: 00 ezetimibe 2022-0 No 1mg 10 mg 1-13 tablet 00:00: 00 Dose 2022-0 No Unknown 1-13 00:00: 00 Dose 2022-0 No Unknown 1-13 00:00: 00 lisinopril 2022-0 No 1mg 10 mg 1-13 tablet 00:00: 00 Dose 2022-0 No Unknown 1-13 00:00: 00 Dose 2022-0 No Unknown 1-13 00:00: 00 ezetimibe 2022-0 No 1mg 10 mg 1-13 tablet 00:00: 00 Dose 2022-0 No Unknown 1-13 00:00: 00 Dose 2022-0 No Unknown 1-13 00:00: 00 lisinopril 2022-0 No 1mg 10 mg 1-13 tablet 00:00: 00 Dose 2022-0 No Unknown 1-13 00:00: 00 Dose 2022-0 No Unknown 1-13 00:00: 00 ezetimibe 2022-0 No 1mg 10 mg 1-13 tablet 00:00: 00 Dose 2-0 No Unknown 1-13 00:00: 00 Dose 2022-0 No Unknown 1-13 00:00: 00 lisinopril 2-0 No 1mg 10 mg 1-13 tablet 00:00: 00 Dose 2022-0 No Unknown 1-13 00:00: 00 Dose 2022-0 No Unknown 1-13 00:00: 00 Invokana 2022-0 No 1mg 100 mg 1-08 tablet 00:00: 00 Invokana 2022-0 No 1mg 100 mg 1-08 tablet 00:00: 00 Invokana 2022-0 No 1mg 100 mg 1-08 tablet 00:00: 00 Invokana 2022-0 No 1mg 100 mg 1-08 tablet 00:00: 00 Dose 1-1 No Unknown 1-15 00:00: 00 prednisone 1-1 No 1mg 10 mg 1-15 tablet 00:00: 00 doxycycline 2020-1 No 1mg hyclate 100 1-15 mg capsule 00:00: 00 Dose 1-1 No Unknown 1-15 00:00: 00 prednisone 1-1 No 1mg 10 mg 1-15 tablet 00:00: 00 doxycycline 1-1 No 1mg hyclate 100 1-15 mg capsule 00:00: 00 Dose 1-1 No Unknown 1-15 00:00: 00 prednisone 1-1 No 1mg 10 mg 1-15 tablet 00:00: 00 doxycycline 1-1 No 1mg hyclate 100 1-15 mg capsule 00:00: 00 Dose 1-1 No Unknown 1-15 00:00: 00 prednisone 1-1 No 1mg 10 mg 1-15 tablet 00:00: 00 doxycycline 1-1 No 1mg hyclate 100 1-15 mg capsule 00:00: 00 lisinopril 1-1 No 1mg 2.5 mg 0-27 tablet 00:00: 00 lisinopril 1-1 No 1mg 2.5 mg 0-27 tablet 00:00: 00 lisinopril 1-1 No 1mg 2.5 mg 0-27 tablet 00:00: 00 lisinopril 2020-1 No 1mg 2.5 mg 0-27 tablet 00:00: 00 Ozempic 1 2020-1 No 1(2 mg/dose (2 0-23 mg/1.5 mg/1.5 mL) 00:00: mL) subcutaneou 00 s pen injector ezetimibe 2020-11 No 1mg 10 mg 0-23 tablet 00:00: 00 Ozempic 1 2020-11 No 1(2 mg/dose (2 0-23 mg/1.5 mg/1.5 mL) 00:00: mL) subcutaneou 00 s pen injector ezetimibe 2020-11 No 1mg 10 mg 0-23 tablet 00:00: 00 Ozempic 1 2020-11 No 1(2 mg/dose (2 0-23 mg/1.5 mg/1.5 mL) 00:00: mL) subcutaneou 00 s pen injector ezetimibe 2020-11 No 1mg 10 mg 0-23 tablet 00:00: 00 Ozempic 1 2020-11 No 1(2 mg/dose (2 0-23 mg/1.5 mg/1.5 mL) 00:00: mL) subcutaneou 00 s pen injector ezetimibe 2020-11 No 1mg 10 mg 0-23 tablet 00:00: 00 prednisone 2020-1 No 1mg 10 mg 0-13 tablet 00:00: 00 Tricor 48 2020-11 No 1mg mg tablet 0-13 00:00: 00 rosuvastati 2020-11 No 1mg n 40 mg 0-13 tablet 00:00: 00 lisinopril 2020-11 No 1mg 2.5 mg 0-13 tablet 00:00: 00 metformin 2020- No 1mg 1,000 mg 0-13 tablet 00:00: 00 glipizide 2020-11 No 1mg 10 mg 0-13 tablet 00:00: 00 prednisone 2020-1 No 1mg 10 mg 0-13 tablet 00:00: 00 Tricor 48 2020-11 No 1mg mg tablet 0-13 00:00: 00 rosuvastati 2020-11 No 1mg n 40 mg 0-13 tablet 00:00: 00 lisinopril 2020-11 No 1mg 2.5 mg 0-13 tablet 00:00: 00 metformin 2020- No 1mg 1,000 mg 0-13 tablet 00:00: 00 glipizide 2021-1 No 1mg 10 mg 0-13 tablet 00:00: 00 prednisone 2021-1 No 1mg 10 mg 0-13 tablet 00:00: 00 Tricor 48 1-1 No 1mg mg tablet 0-13 00:00: 00 rosuvastati 1-1 No 1mg n 40 mg 0-13 tablet 00:00: 00 lisinopril 1-1 No 1mg 2.5 mg 0-13 tablet 00:00: 00 metformin 1-1 No 1mg 1,000 mg 0-13 tablet 00:00: 00 glipizide 1-1 No 1mg 10 mg 0-13 tablet 00:00: 00 prednisone 1-1 No 1mg 10 mg 0-13 tablet 00:00: 00 Tricor 48 2020-1 No 1mg mg tablet 0-13 00:00: 00 rosuvastati 2020-1 No 1mg n 40 mg 0-13 tablet 00:00: 00 lisinopril 1-1 No 1mg 2.5 mg 0-13 tablet 00:00: 00 metformin 1-1 No 1mg 1,000 mg 0-13 tablet 00:00: 00 glipizide 1-1 No 1mg 10 mg 0-13 tablet 00:00: 00 lisinopril 1-0 No 1mg 2.5 mg 7-08 tablet 00:00: 00 Tricor 48 1-0 No 1mg mg tablet 7-08 00:00: 00 rosuvastati 1-0 No 1mg n 40 mg 7-08 tablet 00:00: 00 metformin 1-0 No 1mg 1,000 mg 7-08 tablet 00:00: 00 glipizide 2021-0 No 1mg 10 mg 7-08 tablet 00:00: 00 Dose 2021-0 No Unknown 7-08 00:00: 00 lisinopril 2021-0 No 1mg 2.5 mg 7-08 tablet 00:00: 00 Tricor 48 2021-0 No 1mg mg tablet 7-08 00:00: 00 rosuvastati 2021-0 No 1mg n 40 mg 7-08 tablet 00:00: 00 metformin 2021-0 No 1mg 1,000 mg 7-08 tablet 00:00: 00 glipizide 2021-0 No 1mg 10 mg 7-08 tablet 00:00: 00 Dose 2021-0 No Unknown 7-08 00:00: 00 lisinopril 2021-0 No 1mg 2.5 mg 7-08 tablet 00:00: 00 Tricor 48 1-0 No 1mg mg tablet 7-08 00:00: 00 rosuvastati 2021-0 No 1mg n 40 mg 7-08 tablet 00:00: 00 metformin 2021-0 No 1mg 1,000 mg 7-08 tablet 00:00: 00 glipizide 2021-0 No 1mg 10 mg 7-08 tablet 00:00: 00 Dose 2021-0 No Unknown 7-08 00:00: 00 lisinopril 2021-0 No 1mg 2.5 mg 7-08 tablet 00:00: 00 Tricor 48 1-0 No 1mg mg tablet 7-08 00:00: 00 rosuvastati 2021-0 No 1mg n 40 mg 7-08 tablet 00:00: 00 metformin 1-0 No 1mg 1,000 mg 7-08 tablet 00:00: 00 glipizide 2021-0 No 1mg 10 mg 7-08 tablet 00:00: 00 Dose 2021-0 No Unknown 7-08 00:00: 00 Dose 2021-0 No Unknown 6-30 00:00: 00 Dose 2021-0 No Unknown 6-30 00:00: 00 Dose 2021-0 No Unknown 6-30 00:00: 00 Dose 2021-0 No Unknown 6-30 00:00: 00 budesonide- 2020-0 Yes [id number] 2{puff} Inhale 2 [facility] formoteroL 6-23 Puffs 2 ity of 80-4.5 00:00: (two) [place] mcg/actuati 00 times Medical on inhaler daily. Branch fluticasone 0 Yes [id number] 1{spray Use 1 [facility] propionate 6-23 } Cascade in ity o f 50 00:00: each [place] mcg/actuati 00 nostril 2 Med ical on nasal (two) Branch spray times daily. budesonide- 0 Yes [id number] 2{puff} Inhale 2 [facility] formoteroL 6-23 Puffs 2 ity of 80-4.5 00:00: (two) [place] mcg/actuati 00 times Medical on inhaler daily. Branch fluticasone Yes [id number] 1{spray Use 1 [facility] propionate 6-23 } Cascade in ity o f 50 00:00: each [place] mcg/actuati 00 nostril 2 Med ical on nasal (two) Branch spray times daily. budesonide- Yes [id number] 2{puff} Inhale 2 [facility] formoteroL 6-23 Puffs 2 ity of 80-4.5 00:00: (two) [place] mcg/actuati 00 times Medical on inhaler daily. Branch fluticasone Yes [id number] 1{spray Use 1 [facility] propionate 6-23 } Cascade in ity o f 50 00:00: each [place] mcg/actuati 00 nostril 2 Med ical on nasal (two) Branch spray times daily. budesonide- Yes [id number] 2{puff} Inhale 2 [facility] formoteroL 6-23 Puffs 2 ity of 80-4.5 00:00: (two) [place] mcg/actuati 00 times Medical on inhaler daily. Branch fluticasone Yes [id number] 1{spray Use 1 [facility] propionate 6-23 } [place] in ity o f 50 00:00: each [place] mcg/actuati 00 nostril 2 Med ical on nasal (two) Branch spray times daily. budesonide- Yes [id number] 2{puff} Inhale 2 [facility] formoteroL 6-23 Puffs 2 ity of 80-4.5 00:00: (two) [place] mcg/actuati 00 times Medical on inhaler daily. Branch fluticasone Yes [id number] 1{spray Use 1 [facility] propionate 6-23 } Cascade in ity o f 50 00:00: each [place] mcg/actuati 00 nostril 2 Med ical on nasal (two) Branch spray times daily. budesonide- Yes [id number] 2{puff} Inhale 2 [facility] formoteroL 6-23 Puffs 2 ity of 80-4.5 00:00: (two) [place] mcg/actuati 00 times Medical on inhaler daily. Branch fluticasone Yes [id number] 1{spray Use 1 [facility] propionate 6-23 } [place]ascade in ity o f 50 00:00: each [place] mcg/actuati 00 nostril 2 Med ical on nasal (two) Branch spray times daily. budesonide- Yes [id number] 2{puff} Inhale 2 [facility] formoteroL 6-23 Puffs 2 ity of 80-4.5 00:00: (two) [place] mcg/actuati 00 times Medical on inhaler daily. Branch fluticasone Yes [id number] 1{spray Use 1 [facility] propionate 6-23 } [place] in ity o f 50 00:00: each [place] mcg/actuati 00 nostril 2 Med ical on nasal (two) Branch spray times daily. budesonide- Yes [id number] 2{puff} Inhale 2 [facility] formoteroL 6-23 Puffs 2 ity of 80-4.5 00:00: (two) [place] mcg/actuati 00 times Medical on inhaler daily. Branch fluticasone Yes [id number] 1{spray Use 1 [facility] propionate 6-23 } [place]ascade in ity o f 50 00:00: each [place] mcg/actuati 00 nostril 2 Med ical on nasal (two) Branch spray times daily. budesonide- Yes [id number] 2{puff} Inhale 2 [facility] formoteroL 6-23 Puffs 2 ity of 80-4.5 00:00: (two) [place] mcg/actuati 00 times Medical on inhaler daily. Branch fluticasone Yes [id number] 1{spray Use 1 [facility] propionate 6-23 } Cascade in ity o f 50 00:00: each [place] mcg/actuati 00 nostril 2 Med ical on nasal (two) Branch spray times daily. Dose 2020-0 No Unknown 4-22 00:00: 00 Dose 2020-0 No Unknown 4-22 00:00: 00 Dose 2020-0 No Unknown 4-22 00:00: 00 Dose 2020-0 No Unknown 4-22 00:00: 00 Dose 2020-0 No Unknown 4-22 00:00: 00 Dose 2020-0 No Unknown 4-22 00:00: 00 Dose 2020-0 No Unknown 4-22 00:00: 00 Dose 2021-0 No Unknown 4-22 00:00: 00 Tricor 48 1-0 No 1mg mg tablet 4-08 00:00: 00 Dose 1-0 No Unknown 4-08 00:00: 00 Dose 2020-0 No Unknown 4-08 00:00: 00 Tricor 48 2020-0 No 1mg mg tablet 4-08 00:00: 00 Dose 2020-0 No Unknown 4-08 00:00: 00 Dose 2020-0 No Unknown 4-08 00:00: 00 Tricor 48 2020-0 No 1mg mg tablet 4-08 00:00: 00 Dose 2020-0 No Unknown 4-08 00:00: 00 Dose 2020-0 No Unknown 4-08 00:00: 00 Tricor 48 2020-0 No 1mg mg tablet 4-08 00:00: 00 Dose 2020-0 No Unknown 4-08 00:00: 00 Dose 1-0 No Unknown 4-08 00:00: 00 rosuvastati 2020-0 No 1mg n 40 mg 3-20 tablet 00:00: 00 Dose 2020-0 No Unknown 3-20 00:00: 00 Dose 2020-0 No Unknown 3-20 00:00: 00 rosuvastati 1-0 No 1mg n 40 mg 3-20 tablet 00:00: 00 Dose 2020-0 No Unknown 3-20 00:00: 00 Dose 2020-0 No Unknown 3-20 00:00: 00 rosuvastati 1-0 No 1mg n 40 mg 3-20 tablet 00:00: 00 Dose 1-0 No Unknown 3-20 00:00: 00 Dose 2020-0 No Unknown 3-20 00:00: 00 rosuvastati 1-0 No 1mg n 40 mg 3-20 tablet 00:00: 00 Dose 2020-0 No Unknown 3-20 00:00: 00 Dose 2020-0 No Unknown 3-20 00:00: 00 fluticasone 2020-0 Yes [id number] 1{spray Use 1 [facility] propionate 3-19 } [place] in ity o f 50 00:00: each [place] mcg/actuati 00 nostril 2 Med ical on nasal (two) Branch spray times daily. famotidine 0 Yes [id number] 40mg Take 1 U nivers 40 mg 3-19 tablet by ity of tablet 00:00: mouth at [place] 00 bedtime. Medical Branch budesonide- Yes [id number] 2{puff} Inhale 2 [facility] formoteroL 3-19 Puffs 2 ity of 80-4.5 00:00: (two) [place] mcg/actuati 00 times Medical on inhaler daily. Branch fluticasone Yes [id number] 1{spray Use 1 [facility] propionate 3-19 } [place] in ity o f 50 00:00: each [place] mcg/actuati 00 nostril 2 Med ical on nasal (two) Branch spray times daily. famotidine Yes [id number] 40mg Take 1 U nivers 40 mg 3-19 tablet by ity of tablet 00:00: mouth at [place] 00 bedtime. Medical Branch budesonide- Yes [id number] 2{puff} Inhale 2 [facility] formoteroL 3-19 Puffs 2 ity of 80-4.5 00:00: (two) [place] mcg/actuati 00 times Medical on inhaler daily. Branch fluticasone Yes [id number] 1{spray Use 1 [facility] propionate 3-19 } [place] in ity o f 50 00:00: each [place] mcg/actuati 00 nostril 2 Med ical on nasal (two) Branch spray times daily. famotidine Yes [id number] 40mg Take 1 U nivers 40 mg 3-19 tablet by ity of tablet 00:00: mouth at [place] 00 bedtime. Medical Branch budesonide- Yes [id number] 2{puff} Inhale 2 [facility] formoteroL 3-19 Puffs 2 ity of 80-4.5 00:00: (two) [place] mcg/actuati 00 times Medical on inhaler daily. Branch fluticasone Yes [id number] 1{spray Use 1 [facility] propionate 3-19 } Cascade in ity o f 50 00:00: each [place] mcg/actuati 00 nostril 2 Med ical on nasal (two) Branch spray times daily. famotidine Yes [id number] 40mg Take 1 U nivers 40 mg 3-19 tablet by ity of tablet 00:00: mouth at [place] 00 bedtime. Medical Branch budesonide- Yes [id number] 2{puff} Inhale 2 [facility] formoteroL 3-19 Puffs 2 ity of 80-4.5 00:00: (two) [place] mcg/actuati 00 times Medical on inhaler daily. Branch fluticasone Yes [id number] 1{spray Use 1 [facility] propionate 3-19 } Cascade in ity o f 50 00:00: each [place] mcg/actuati 00 nostril 2 Med ical on nasal (two) Branch spray times daily. famotidine Yes [id number] 40mg Take 1 [facility] nivers 40 mg 3-19 tablet by ity of tablet 00:00: mouth at [place] [address] bedtime. Medical Branch budesonide- Yes [id number] 2{puff} Inhale 2 [facility] formoteroL 3-19 Puffs 2 ity of 80-4.5 00:00: (two) [place] mcg/actuati 00 times Medical on inhaler daily. Branch famotidine Yes [id number] 40mg Take 1 [facility] nivers 40 mg 3-19 tablet by ity of tablet 00:00: mouth at [place] [address] bedtime. Medical Branch famotidine Yes [id number] 40mg Take 1 [facility] nivers 40 mg 3-19 tablet by ity of tablet 00:00: mouth at [place] [address] bedtime. Medical Branch famotidine Yes [id number] 40mg Take 1 [facility] nivers 40 mg 3-19 tablet by ity of tablet 00:00: mouth at [place] [address] bedtime. Medical Branch famotidine Yes [id number] 40mg Take 1 [facility] nivers 40 mg 3-19 tablet by ity of tablet 00:00: mouth at [place] [address] bedtime. Medical Branch famotidine 0 Yes [id number] 40mg Take 1 [facility] nivers 40 mg 3-19 tablet by ity of tablet 00:00: mouth at [place] [address] bedtime. Medical Branch famotidine 0 Yes [id number] 40mg Take 1 [facility] nivers 40 mg 3-19 tablet by ity of tablet 00:00: mouth at [place] [address] bedtime. Medical Branch famotidine 0 Yes [id number] 40mg Take 1 [facility] nivers 40 mg 3-19 tablet by ity of tablet 00:00: mouth at [place] [address] bedtime. Medical Branch famotidine 2020-0 Yes [id number] 40mg Take 1 [facility] nivers 40 mg 3-19 tablet by ity of tablet 00:00: mouth at [place] [address] bedtime. Medical Branch famotidine 2020-0 Yes [id number] 40mg Take 1 [facility] nivers 40 mg 3-19 tablet by ity of tablet 00:00: mouth at [place] [address] bedtime. Medical Branch fluticasone 2020- No [id number] 1{spray Use 1 [facility] propionate 02-01 } Cascade in ity of 50 00:00: 00:00 each [place] mcg/actuati 00 :00 nostril 2 Med ical on nasal (two) Branch spray times daily. budesonide- 2020- No [id number] 2{puff} Inhale 2 [facility] formoteroL 02-01 Puffs 2 ity o f 80-4.5 00:00: 00:00 (two) [place] mcg/actuati 00 :00 times Medical on inhaler daily. Branch metformin 2020-0 No 1mg 1,000 mg 3-05 tablet 00:00: 00 metformin 1-0 No 1mg 1,000 mg 3-05 tablet 00:00: 00 metformin 1-0 No 1mg 1,000 mg 3-05 tablet 00:00: 00 metformin 1-0 No 1mg 1,000 mg 3-05 tablet 00:00: 00 ibuprofen 2021-0 No 1mg 800 mg 2-26 tablet 00:00: 00 ibuprofen 2021-0 No 1mg 800 mg 2-26 tablet 00:00: 00 ibuprofen 2021-0 No 1mg 800 mg 2-26 tablet 00:00: 00 ibuprofen 2021-0 No 1mg 800 mg 2-26 tablet 00:00: 00 rosuvastati 2021-0 No 1mg n 40 mg 2-12 tablet 00:00: 00 rosuvastati 1-0 No 1mg n 40 mg 2-12 tablet 00:00: 00 rosuvastati 2021-0 No 1mg n 40 mg 2-12 tablet 00:00: 00 rosuvastati 1-0 No 1mg n 40 mg 2-12 tablet 00:00: 00 glipizide 5 2020-0 No 1mg mg tablet 1-20 00:00: 00 glipizide 5 2020-0 No 1mg mg tablet -20 00:00: 00 glipizide 5 2020-0 No 1mg mg tablet -20 00:00: 00 glipizide 5 2020-0 No 1mg mg tablet -20 00:00: 00 rosuvastati 1-0 No 1mg n 40 mg 1-09 tablet 00:00: 00 rosuvastati 2020-0 No 1mg n 40 mg 1-09 tablet 00:00: 00 rosuvastati 1-0 No 1mg n 40 mg 1-09 tablet 00:00: 00 rosuvastati 2020-0 No 1mg n 40 mg 1-09 tablet 00:00: 00 benzonatate 2020-0 Yes [id number] 100mg Take 1 [facility] 100 mg 1-07 capsule by ity of capsule 00:00: mouth 3 [place] [address] (three) Medical times Branch daily as needed for Cough. famotidine Yes [id number] 40mg Take 1 [facility] nivers 40 mg 1-07 tablet by ity of tablet 00:00: mouth at [place] [address] bedtime. Medical Branch fluticasone Yes [id number] 1{spray Use 1 [facility] propionate 1-07 } Cascade in ity o f 50 00:00: each [place] mcg/actuati 00 nostril 2 Med ical on nasal (two) Branch spray times daily. budesonide- Yes [id number] 2{puff} Inhale 2 [facility] formoteroL 1-07 Puffs 2 ity of 80-4.5 00:00: (two) [place] mcg/actuati 00 times Medical on inhaler daily. Branch benzonatate 0 Yes [id number] 100mg Take 1 [facility] 100 mg 1-07 capsule by ity of capsule 00:00: mouth 3 [place] 00 (three) Medical times Branch daily as needed for Cough. famotidine 2020-0 Yes [id number] 40mg Take 1 [facility] nivers 40 mg 1-07 tablet by ity of tablet 00:00: mouth at [place] [address] bedtime. Medical Branch fluticasone 2020- Yes [id number] 1{spray Use 1 [facility] propionate 1-07 } [place] in ity o f 50 00:00: each [place] mcg/actuati 00 nostril 2 Med ical on nasal (two) Branch spray times daily. budesonide- 2020-0 Yes [id number] 2{puff} Inhale 2 [facility] formoteroL 1-07 Puffs 2 ity of 80-4.5 00:00: (two) [place] mcg/actuati 00 times Medical on inhaler daily. Branch benzonatate 2020-0 Yes [id number] 100mg Take 1 [facility] 100 mg 1-07 capsule by ity of capsule 00:00: mouth 3 [place] (three) Medical times Branch daily as needed for Cough. famotidine 2020-0 Yes [id number] 40mg Take 1 [facility] nivers 40 mg 1-07 tablet by ity of tablet 00:00: mouth at [place] [address] bedtime. Medical Branch fluticasone 2020-0 Yes [id number] 1{spray Use 1 [facility] propionate 1-07 } [place] in ity o f 50 00:00: each [place] mcg/actuati 00 nostril 2 Med ical on nasal (two) Branch spray times daily. budesonide- 2020-0 Yes [id number] 2{puff} Inhale 2 [facility] formoteroL 1-07 Puffs 2 ity of 80-4.5 00:00: (two) [place] mcg/actuati 00 times Medical on inhaler daily. Branch benzonatate 2020-0 Yes [id number] 100mg Take 1 [facility] 100 mg 1-07 capsule by ity of capsule 00:00: mouth 3 [place] 00 (three) Medical times Branch daily as needed for Cough. famotidine 2020-0 Yes [id number] 40mg Take 1 [facility] nivers 40 mg 1-07 tablet by ity of tablet 00:00: mouth at [place] [address] bedtime. Medical Branch fluticasone 2020-0 Yes [id number] 1{spray Use 1 [facility] propionate 1-07 } [place] in ity o f 50 00:00: each [place] mcg/actuati 00 nostril 2 Med ical on nasal (two) Branch spray times daily. budesonide- 2020-0 Yes [id number] 2{puff} Inhale 2 [facility] formoteroL 1-07 Puffs 2 ity of 80-4.5 00:00: (two) [place] mcg/actuati 00 times Medical on inhaler daily. Branch benzonatate 2020-0 Yes [id number] 100mg Take 1 [facility] 100 mg 1-07 capsule by ity of capsule 00:00: mouth [place] (three) Medical times Branch daily as needed for Cough. benzonatate 2020-0 Yes [id number] 100mg Take 1 [facility] 100 mg 1-07 capsule by ity of capsule 00:00: mouth (three) Medical times Branch daily as needed for Cough. benzonatate 2020-0 Yes [id number] 100mg Take 1 [facility] 100 mg 1-07 capsule by ity of capsule 00:00: mouth (three) Medical times Branch daily as needed for Cough. benzonatate 2020-0 Yes [id number] 100mg Take 1 [facility] 100 mg 1-07 capsule by ity of capsule 00:00: mouth [place] (three) Medical times Branch daily as needed for Cough. benzonatate 2020-0 Yes [id number] 100mg Take 1 [facility] 100 mg 1-07 capsule by ity of capsule 00:00: mouth [place] (three) Medical times Branch daily as needed for Cough. benzonatate 2020-0 Yes [id number] 100mg Take 1 [facility] 100 mg 1-07 capsule by ity of capsule 00:00: mouth [place] (three) Medical times Branch daily as needed for Cough. benzonatate 2020-0 Yes [id number] 100mg Take 1 [facility] 100 mg 1-07 capsule by ity of capsule 00:00: mouth [place] (three) Medical times Branch daily as needed for Cough. benzonatate 2020-0 Yes [id number] 100mg Take 1 [facility] 100 mg 1-07 capsule by ity of capsule 00:00: mouth [place] (three) Medical times Branch daily as needed for Cough. benzonatate 2020-0 Yes [id number] 100mg Take 1 [facility] 100 mg 1-07 capsule by ity of capsule 00:00: mouth [place] (three) Medical times Branch daily as needed for Cough. benzonatate 1-0 Yes [id number] 100mg Take 1 [facility] 100 mg 1-07 capsule by ity of capsule 00:00: mouth 3 [place] (three) Medical times Branch daily as needed for Cough. benzonatate 1-0 Yes [id number] 100mg Take 1 [facility] 100 mg 1-07 capsule by ity of capsule 00:00: mouth 3 [place] 00 (three) Medical times Branch daily as needed for Cough. benzonatate Yes [id number] 100mg Take 1 [facility] 100 mg 1-07 capsule by ity of capsule 00:00: mouth 3 [place] 00 (three) Medical times Branch daily as needed for Cough. benzonatate Yes [id number] 100mg Take 1 [facility] 100 mg 1-07 capsule by ity of capsule 00:00: mouth 3 [place] 00 (three) Medical times Branch daily as needed for Cough. benzonatate Yes [id number] 100mg Take 1 [facility] 100 mg 1-07 capsule by ity of capsule 00:00: mouth 3 [place] 00 (three) Medical times Branch daily as needed for Cough. famotidine 2020- No [id number] 40mg Take 1 [facility] 40 mg 11-22 tablet by ity of tablet 00:00: 00:00 mouth at [place] 00 :00 bedtime. Medical Branch fluticasone 2020- No [id number] 1{spray Use 1 [facility] propionate 11-22 } [place] in ity of 50 00:00: 00:00 each [place] mcg/actuati 00 :00 nostril 2 Med ical on nasal (two) Branch spray times daily. budesonide- 2020- No [id number] 2{puff} Inhale 2 [facility] formoteroL 11-22 Puffs 2 ity o f 80-4.5 00:00: 00:00 (two) [place] mcg/actuati 00 :00 times Medical on inhaler daily. Branch famotidine 2020- No [id number] 40mg Take 1 [facility] 40 mg 11-22 tablet by ity of tablet 00:00: 00:00 mouth at [place] 00 :00 bedtime. Medical Branch fluticasone 2020- No [id number] 1{spray Use 1 [facility] propionate 11-22 } [place] in ity of 50 00:00: 00:00 each [place] mcg/actuati 00 :00 nostril 2 Med ical on nasal (two) Branch spray times daily. budesonide- 2020- No [id number] 2{puff} Inhale 2 [facility] formoteroL 1-07 03-19 [...] Branch daily with meals. budesonide- 2021-0 Yes [id number] 2{puff} Inhale 2 [facility] formoteroL 1-06 Puffs 2 ity of 80-4.5 00:00: (two) [place] mcg/actuati 00 times Medical on inhaler daily. Branch fluticasone Yes [id number] 1{spray Use 1 [facility] propionate 1-06 } [place] in ity o f 50 00:00: each [place] mcg/actuati 00 nostril 2 Med ical on nasal (two) Branch spray times daily. famotidine 0 Yes [id number] 40mg Take 1 [facility] 40 mg 1-06 tablet by ity of tablet 00:00: mouth at [place] 00 bedtime. Medical Branch benzonatate Yes [id number] 100mg Take 1 [facility] 100 mg 1-06 capsule by ity of capsule 00:00: mouth 3 [place] 00 (three) Medical times Branch daily as needed for Cough. budesonide- Yes [id number] 2{puff} Inhale 2 [facility] formoteroL 1-06 Puffs 2 ity of 80-4.5 00:00: (two) [place] mcg/actuati 00 times Medical on inhaler daily. Branch fluticasone Yes [id number] 1{spray Use 1 [facility] propionate 1-06 } [place] in ity o f 50 00:00: each [place] mcg/actuati 00 nostril 2 Med ical on nasal (two) Branch spray times daily. famotidine Yes [id number] 40mg Take 1 [facility] 40 mg 1-06 tablet by ity of tablet 00:00: mouth at [place] 00 bedtime. Medical Branch benzonatate 0 Yes [id number] 100mg Take 1 [facility] 100 mg 1-06 capsule by ity of capsule 00:00: mouth 3 [place] 00 (three) Medical times Branch daily as needed for Cough. budesonide- 0 Yes [id number] 2{puff} Inhale 2 [facility] formoteroL 1-06 Puffs 2 ity of 80-4.5 00:00: (two) [place] mcg/actuati 00 times Medical on inhaler daily. Branch fluticasone Yes [id number] 1{spray Use 1 [facility] propionate 1-06 } [place] in ity o f 50 00:00: each [place] mcg/actuati 00 nostril 2 Med ical on nasal (two) Branch spray times daily. famotidine 2020-0 Yes [id number] 40mg Take 1 [facility] 40 mg 1-06 tablet by ity of tablet 00:00: mouth at [place] 00 bedtime. Medical Branch benzonatate Yes [id number] 100mg Take 1 [facility] 100 mg - capsule by ity of capsule 00:00: mouth 3 [place] 00 (three) Medical times [place] daily as needed for Cough. budesonide- 2020- No [id number] 2{puff} Inhale 2 [facility] formoteroL 11-21- Puffs 2 ity o f 80-4.5 00:00: 00:00 (two) [place] mcg/actuati 00 :00 times Medical on inhaler daily. Branch fluticasone 2020- No [id number] 1{spray Use 1 [facility] propionate 11-21 } [place] in ity of 50 00:00: 00:00 each [place] mcg/actuati 00 :00 nostril 2 Med ical on nasal (two) Branch spray times daily. famotidine 2020- No [id number] 40mg Take 1 [facility] 40 mg 11-21 tablet by ity of tablet 00:00: 00:00 mouth at [place] 00 :[address] [facility] benzonatate 2020- No [id number] 100mg Take 1 [facility] 100 mg 11-21 capsule by ity of capsule 00:00: 00:00 mouth 3 [place] 00 :00 (three) Medical times [place] daily as needed for Cough. budesonide- 2020- No [id number] 2{puff} Inhale 2 [facility] formoteroL 11-21- Puffs 2 ity o f 80-4.5 00:00: 00:00 (two) [place] mcg/actuati 00 :00 times Medical on inhaler daily. Branch fluticasone 2020- No [id number] 1{spray Use 1 [facility] propionate 11-21 } [place] in ity of 50 00:00: 00:00 each [place] mcg/actuati 00 :00 nostril 2 Med ical on nasal (two) Branch spray times daily. famotidine 2020- No [id number] 40mg Take 1 [facility] 40 mg 11-21 tablet by ity of tablet 00:00: 00:00 mouth at [place] 00 :00 bedtime. Medical Branch benzonatate 0 202- No [id number] 100mg Take 1 [facility] 100 mg 11-21 capsule by ity of capsule 00:00: 00:00 mouth 3 [place] 00 :00 (three) Medical times Branch daily as needed for Cough. loratadine 2019-11 No 1mg 10 mg 2-29 tablet 00:00: 00 azithromyci 2019- No 1mg n 250 mg 2-29 tablet 00:00: 00 loratadine 2019- No 1mg 10 mg 2-29 tablet 00:00: 00 azithromyci 2019- No 1mg n 250 mg 2-29 tablet 00:00: 00 loratadine 2019-11 No 1mg 10 mg 2-29 tablet 00:00: 00 azithromyci 2019- No 1mg n 250 mg 2-29 tablet 00:00: 00 loratadine 2019-11 No 1mg 10 mg 2-29 tablet 00:00: 00 azithromyci 2019-11 No 1mg n 250 mg 2-29 tablet 00:00: 00 Dose 2019- No Unknown 2-15 00:00: 00 Dose 2019- No Unknown 2-15 00:00: 00 Dose 2019- No Unknown 2-15 00:00: 00 Dose 2019- No Unknown 2-15 00:00: 00 Bromfed DM 2019-11 No 10mg/5 2 mg-30 2-08 mL mg-10 mg/5 00:00: mL oral 00 syrup Bromfed DM 2019-11 No 10mg/5 2 mg-30 2-08 mL mg-10 mg/5 00:00: mL oral 00 syrup Bromfed DM 2019-11 No 10mg/5 2 mg-30 2-08 mL mg-10 mg/5 00:00: mL oral 00 syrup Bromfed DM 2019-11 No 10mg/5 2 mg-30 2-08 mL mg-10 mg/5 00:00: mL oral 00 syrup loratadine 2019-11 No 1mg 10 mg 2-02 tablet 00:00: 00 loratadine 2019-11 No 1mg 10 mg 2-02 tablet 00:00: 00 loratadine 2019-11 No 1mg 10 mg 2-02 tablet 00:00: 00 loratadine 2019- No 1mg 10 mg 2-02 tablet 00:00: 00 Bromfed DM 2019- No 5mg/5 2 mg-30 1-16 mL mg-10 mg/5 00:00: mL oral 00 syrup Bromfed DM 2019- No 5mg/5 2 mg-30 1-16 mL mg-10 mg/5 00:00: mL oral 00 syrup Bromfed DM 2019- No 5mg/5 2 mg-30 1-16 mL mg-10 mg/5 00:00: mL oral 00 syrup Bromfed DM 2019- No 5mg/5 2 mg-30 1-16 mL mg-10 mg/5 00:00: mL oral 00 syrup mupirocin 2 2019- No 1% % topical 0-26 ointment 00:00: 00 rosuvastati 2019- No 1mg n 40 mg 0-26 tablet 00:00: 00 losartan 2019- No 1mg 100 mg 0-26 tablet 00:00: 00 glipizide 5 2019-11 No 1mg mg tablet 0-26 00:00: 00 metformin 2019- No 1mg 1,000 mg 0-26 tablet 00:00: 00 fluconazole 2019- No 1mg 150 mg 0-26 tablet 00:00: 00 mupirocin 2 2019- No 1% % topical 0-26 ointment 00:00: 00 rosuvastati 2019- No 1mg n 40 mg 0-26 tablet 00:00: 00 losartan 2019- No 1mg 100 mg 0-26 tablet 00:00: 00 glipizide 5 2019- No 1mg mg tablet 0-26 00:00: 00 metformin 2019-1 No 1mg 1,000 mg 0-26 tablet 00:00: 00 fluconazole 2019-1 No 1mg 150 mg 0-26 tablet 00:00: 00 mupirocin 2 2019- No 1% % topical 0-26 ointment 00:00: 00 rosuvastati 2020- No 1mg n 40 mg 0-26 tablet 00:00: 00 losartan 2019-1 No 1mg 100 mg 0-26 tablet 00:00: 00 glipizide 5 2019-1 No 1mg mg tablet 0-26 00:00: 00 metformin 2020-1 No 1mg 1,000 mg 0-26 tablet 00:00: 00 fluconazole 2019-1 No 1mg 150 mg 0-26 tablet 00:00: 00 mupirocin 2 2019- No 1% % topical 0-26 ointment 00:00: 00 rosuvastati 2019- No 1mg n 40 mg 0-26 tablet 00:00: 00 losartan 2019-1 No 1mg 100 mg 0-26 tablet 00:00: 00 glipizide 5 2019- No 1mg mg tablet 0-26 00:00: 00 metformin 2019- No 1mg 1,000 mg 0-26 tablet 00:00: 00 fluconazole 2019- No 1mg 150 mg 0-26 tablet 00:00: 00 Bromfed DM 2019- No 5mg/5 2 mg-30 0-23 mL mg-10 mg/5 00:00: mL oral 00 syrup Bromfed DM 2019- No 5mg/5 2 mg-30 0-23 mL mg-10 mg/5 00:00: mL oral 00 syrup Bromfed DM 2019- No 5mg/5 2 mg-30 0-23 mL mg-10 mg/5 00:00: mL oral 00 syrup Bromfed DM 2019- No 5mg/5 2 mg-30 0-23 mL mg-10 mg/5 00:00: mL oral 00 syrup Bromfed DM 2019- No 5mg/5 2 mg-30 0-23 mL mg-10 mg/5 00:00: mL oral 00 syrup Bromfed DM 2019- No 5mg/5 2 mg-30 0-23 mL mg-10 mg/5 00:00: mL oral 00 syrup Bromfed DM 2019- No 5mg/5 2 mg-30 0-23 mL mg-10 mg/5 00:00: mL oral 00 syrup Bromfed DM 2019- No 5mg/5 2 mg-30 0-23 mL mg-10 mg/5 00:00: mL oral 00 syrup miconazole 2019-0 No % nitrate 2 % 08-12 topical 00:00: cream 00 Preparation 2019-0 No % H Maximum 08-12 Strength 00:00: 0.25 %-1 % 00 rectal cream benzonatate 2019-0 No 1mg 100 mg 9 capsule 00:00: 00 miconazole 2019-0 No % nitrate 2 % 08-12 topical 00:00: cream Preparation 2019-0 No % H Maximum 9-27 Strength 00:00: 0.25 %-1 % 00 rectal cream benzonatate 2020-0 No 1mg 100 mg 9- capsule 00:00: 00 miconazole 2020-0 No % nitrate 2 % 9 topical 00:00: cream 00 Preparation 2020-0 No % H Maximum 9-27 Strength 00:00: 0.25 %-1 % 00 rectal cream benzonatate 2020-0 No 1mg 100 mg 9- capsule 00:00: 00 miconazole 2020-0 No % nitrate 2 % 08-12 topical 00:00: cream 00 Preparation 2020-0 No % H Maximum 9 Strength 00:00: 0.25 %-1 % 00 rectal cream benzonatate 2020-0 No 1mg 100 mg 9- capsule 00:00: 00 benzonatate 2020-0 No 12mg 100 mg 8- capsule 00:00: 00 benzonatate 2020-0 No 12mg 100 mg 8- capsule 00:00: 00 benzonatate 2020-0 No 12mg 100 mg 8- capsule 00:00: 00 benzonatate 2020-0 No 12mg 100 mg 8-28 capsule 00:00: 00 Tricor 48 2020-0 No 1mg mg tablet 07-10 00:00: 00 Tricor 48 2020-0 No 1mg mg tablet 07-10 00:00: 00 Tricor 48 2020-0 No 1mg mg tablet 07-10 00:00: 00 Tricor 48 2020-0 No 1mg mg tablet 07-10 00:00: 00 loratadine 2020-0 No 1mg 10 mg 8-08 tablet 00:00: 00 rosuvastati 2020-0 No 1mg n 20 mg 8-08 tablet 00:00: 00 glipizide 5 2020-0 No 1mg mg tablet 808 00:00: 00 metformin 2020-0 No 1mg 1,000 mg 8-08 tablet 00:00: 00 lisinopril 2020-0 No 1mg 20 8-08 mg-hydrochl 00:00: orothiazide 00 12.5 mg tablet loratadine 2020-0 No 1mg 10 mg 8-08 tablet 00:00: 00 rosuvastati 2020-0 No 1mg n 20 mg 8-08 tablet 00:00: 00 glipizide 5 2020-0 No 1mg mg tablet 8-08 00:00: 00 metformin 2020-0 No 1mg 1,000 mg 8-08 tablet 00:00: 00 lisinopril 2020-0 No 1mg 20 8-08 mg-hydrochl 00:00: orothiazide 00 12.5 mg tablet loratadine 2020-0 No 1mg 10 mg 8-08 tablet 00:00: 00 rosuvastati 2020-0 No 1mg n 20 mg 8-08 tablet 00:00: 00 glipizide 5 2020-0 No 1mg mg tablet 8-08 00:00: 00 metformin 2020-0 No 1mg 1,000 mg 8-08 tablet 00:00: 00 lisinopril 2020-0 No 1mg 20 8-08 mg-hydrochl 00:00: orothiazide 00 12.5 mg tablet loratadine 2020-0 No 1mg 10 mg 8-08 tablet 00:00: 00 rosuvastati 2020-0 No 1mg n 20 mg 8-08 tablet 00:00: 00 glipizide 5 2020-0 No 1mg mg tablet 8-08 00:00: 00 metformin 2020-0 No 1mg 1,000 mg 8-08 tablet 00:00: 00 lisinopril 2020-0 No 1mg 20 8-08 mg-hydrochl 00:00: orothiazide 00 12.5 mg tablet lisinopril 2020-0 No 1mg 20 7-30 mg-hydrochl 00:00: orothiazide 00 12.5 mg tablet lisinopril 2020-0 No 1mg 20 7-30 mg-hydrochl 00:00: orothiazide 00 12.5 mg tablet lisinopril 2020-0 No 1mg 20 7-30 mg-hydrochl 00:00: orothiazide 00 12.5 mg tablet lisinopril 2020-0 No 1mg 20 7-30 mg-hydrochl 00:00: orothiazide 00 12.5 mg tablet rosuvastati 2020-0 No 1mg n 20 mg 7-02 tablet 00:00: 00 loratadine 2020-0 No 1mg 10 mg 7-02 tablet 00:00: 00 rosuvastati 2020-0 No 1mg n 20 mg 7-02 tablet 00:00: 00 loratadine 2020-0 No 1mg 10 mg 7-02 tablet 00:00: 00 lisinopril 2020-0 No 1mg 20 7-02 mg-hydrochl 00:00: orothiazide 00 12.5 mg tablet metformin 2020-0 No 1mg 1,000 mg 7-02 tablet 00:00: 00 glipizide 5 2020-0 No 1mg mg tablet 7 00:00: 00 lisinopril 2020-0 No 1mg 20 7-02 mg-hydrochl 00:00: orothiazide 00 12.5 mg tablet metformin 2020-0 No 1mg 1,000 mg 7-02 tablet 00:00: 00 glipizide 5 2020-0 No 1mg mg tablet 7 00:00: 00 rosuvastati 2020-0 No 1mg n 20 mg 7-02 tablet 00:00: 00 loratadine 2020-0 No 1mg 10 mg 7-02 tablet 00:00: 00 lisinopril 2020-0 No 1mg 20 7-02 mg-hydrochl 00:00: orothiazide 00 12.5 mg tablet metformin 2020-0 No 1mg 1,000 mg 7-02 tablet 00:00: 00 glipizide 5 2020-0 No 1mg mg tablet 7 00:00: 00 rosuvastati 2020-0 No 1mg n 20 mg 7-02 tablet 00:00: 00 loratadine 2020-0 No 1mg 10 mg 7-02 tablet 00:00: 00 lisinopril 2020-0 No 1mg 20 7-02 mg-hydrochl 00:00: orothiazide 00 12.5 mg tablet metformin 2020-0 No 1mg 1,000 mg 7-02 tablet 00:00: 00 glipizide 5 2020-0 No 1mg mg tablet 7 00:00: 00 loratadine 2020-0 No 1mg 10 mg 6-25 tablet 00:00: 00 loratadine 2020-0 No 1mg 10 mg 6-25 tablet 00:00: 00 loratadine 2020-0 No 1mg 10 mg 6-25 tablet 00:00: 00 loratadine 2020-0 No 1mg 10 mg 6-25 tablet 00:00: 00 loratadine 2020-0 No 1mg 10 mg 3-27 tablet 00:00: 00 lisinopril 2020-0 No 1mg 20 3-27 mg-hydrochl 00:00: orothiazide 00 12.5 mg tablet glipizide 5 2020-0 No 1mg mg tablet 3-27 00:00: 00 metformin 2020-0 No 1mg 1,000 mg 3-27 tablet 00:00: 00 loratadine 2020-0 No 1mg 10 mg 3-27 tablet 00:00: 00 lisinopril 2020-0 No 1mg 20 3-27 mg-hydrochl 00:00: orothiazide 00 12.5 mg tablet glipizide 5 2020-0 No 1mg mg tablet 3 00:00: 00 metformin 2020-0 No 1mg 1,000 mg 3-27 tablet 00:00: 00 loratadine 2020-0 No 1mg 10 mg 3-27 tablet 00:00: 00 lisinopril 2020-0 No 1mg 20 3-27 mg-hydrochl 00:00: orothiazide 00 12.5 mg tablet glipizide 5 2020-0 No 1mg mg tablet 02-09 00:00: 00 metformin 2020-0 No 1mg 1,000 mg 3-27 tablet 00:00: 00 loratadine 2020-0 No 1mg 10 mg 3-27 tablet 00:00: 00 lisinopril 2020-0 No 1mg 20 3-27 mg-hydrochl 00:00: orothiazide 00 12.5 mg tablet glipizide 5 2020-0 No 1mg mg tablet 02-09 00:00: 00 metformin 2020-0 No 1mg 1,000 mg 3-27 tablet 00:00: 00 rosuvastati 2020-0 No 1mg n 20 mg 2-04 tablet 00:00: 00 rosuvastati 2020-0 No 1mg n 20 mg 2-04 tablet 00:00: 00 rosuvastati 2020-0 No 1mg n 20 mg 2-04 tablet 00:00: 00 rosuvastati 2020-0 No 1mg n 20 mg 2-04 tablet 00:00: 00 rosuvastati 2020-0 No 1mg n 20 mg 1-03 tablet 00:00: 00 loratadine 2020-0 No 1mg 10 mg 1-03 tablet 00:00: 00 metformin 2020-0 No 1mg 1,000 mg 1-03 tablet 00:00: 00 glipizide 5 2020-0 No 1mg mg tablet 1-03 00:00: 00 lisinopril 2020-0 No 1mg 20 1-03 mg-hydrochl 00:00: orothiazide 00 12.5 mg tablet rosuvastati 2020-0 No 1mg n 20 mg 1-03 tablet 00:00: 00 loratadine 2020-0 No 1mg 10 mg 1-03 tablet 00:00: 00 metformin 2020-0 No 1mg 1,000 mg 1-03 tablet 00:00: 00 glipizide 5 2020-0 No 1mg mg tablet 1-03 00:00: 00 lisinopril 2020-0 No 1mg 20 1-03 mg-hydrochl 00:00: orothiazide 00 12.5 mg tablet rosuvastati 2020-0 No 1mg n 20 mg 1-03 tablet 00:00: 00 loratadine 2020-0 No 1mg 10 mg 1-03 tablet 00:00: 00 metformin 2020-0 No 1mg 1,000 mg 1-03 tablet 00:00: 00 glipizide 5 2019-0 No 1mg mg tablet 1-03 00:00: 00 lisinopril 2020-0 No 1mg 20 1-03 mg-hydrochl 00:00: orothiazide 00 12.5 mg tablet rosuvastati 2020-0 No 1mg n 20 mg 1-03 tablet 00:00: 00 loratadine 2020-0 No 1mg 10 mg 1-03 tablet 00:00: 00 metformin 2020-0 No 1mg 1,000 mg 1-03 tablet 00:00: 00 glipizide 5 2019-0 No 1mg mg tablet 11-18 00:00: 00 lisinopril 2020-0 No 1mg 20 1-03 mg-hydrochl 00:00: orothiazide 00 12.5 mg tablet glipizide 5 2018-1 No 1mg mg tablet 12-10 00:00: 00 metformin 2019-1 No 1mg 1,000 mg 1-25 tablet 00:00: 00 glipizide 5 2018-1 No 1mg mg tablet 12-10 00:00: 00 metformin 2019-1 No 1mg 1,000 mg 1-25 tablet 00:00: 00 glipizide 5 2018-1 No 1mg mg tablet 12-10 00:00: 00 metformin 2019-1 No 1mg 1,000 mg 1-25 tablet 00:00: 00 glipizide 5 2018-1 No 1mg mg tablet 12-10 00:00: 00 metformin 2019-1 No 1mg 1,000 mg 1-25 tablet 00:00: 00 loratadine 2019-1 No 1mg 10 mg 1-19 tablet 00:00: 00 lisinopril 2019-1 No 1mg 20 1-19 mg-hydrochl 00:00: orothiazide 00 12.5 mg tablet loratadine 2019-1 No 1mg 10 mg 1-19 tablet 00:00: 00 lisinopril 2019-1 No 1mg 20 1-19 mg-hydrochl 00:00: orothiazide 00 12.5 mg tablet loratadine 2019-1 No 1mg 10 mg 1-19 tablet 00:00: 00 lisinopril 2019-1 No 1mg 20 1-19 mg-hydrochl 00:00: orothiazide 00 12.5 mg tablet loratadine 2018-1 No 1mg 10 mg 1-19 tablet 00:00: 00 lisinopril 2019-1 No 1mg 20 1-19 mg-hydrochl 00:00: orothiazide 00 12.5 mg tablet ibuprofen 2019-1 No 1mg 800 mg 0-02 tablet 00:00: 00 ibuprofen 2019-1 No 1mg 800 mg 0-02 tablet 00:00: 00 ibuprofen 2019-1 No 1mg 800 mg 0-02 tablet 00:00: 00 ibuprofen 2019-1 No 1mg 800 mg 0-02 tablet 00:00: 00 lisinopril 2019-0 No 1mg 20 8-22 mg-hydrochl 00:00: orothiazide 00 12.5 mg tablet lisinopril 2019-0 No 1mg 20 8-22 mg-hydrochl 00:00: orothiazide 00 12.5 mg tablet lisinopril 2019-0 No 1mg 20 8-22 mg-hydrochl 00:00: orothiazide 00 12.5 mg tablet lisinopril 2019-0 No 1mg 20 8-22 mg-hydrochl 00:00: orothiazide 00 12.5 mg tablet glipizide 5 2019-0 No 1mg mg tablet 8 00:00: 00 metformin 2019-0 No 1mg 1,000 mg 8-21 tablet 00:00: 00 glipizide 5 2019-0 No 1mg mg tablet 8 00:00: 00 metformin 2019-0 No 1mg 1,000 mg 8-21 tablet 00:00: 00 glipizide 5 2019-0 No 1mg mg tablet 8-21 00:00: 00 metformin 2019-0 No 1mg 1,000 mg 8-21 tablet 00:00: 00 glipizide 5 2019-0 No 1mg mg tablet 8-21 00:00: 00 metformin 2019-0 No 1mg 1,000 mg 8-21 tablet 00:00: 00 lisinopril 2019-0 No 1mg 20 7-02 mg-hydrochl 00:00: orothiazide 00 12.5 mg tablet lisinopril 2019-0 No 1mg 20 7-02 mg-hydrochl 00:00: orothiazide 00 12.5 mg tablet lisinopril 2019-0 No 1mg 20 7-02 mg-hydrochl 00:00: orothiazide 00 12.5 mg tablet lisinopril 2019-0 No 1mg 20 7-02 mg-hydrochl 00:00: orothiazide 00 12.5 mg tablet glipizide 5 2019-0 No 1mg mg tablet 6-10 00:00: 00 glipizide 5 2019-0 No 1mg mg tablet 6-10 00:00: 00 glipizide 5 2019-0 No 1mg mg tablet 6-10 00:00: 00 glipizide 5 2019-0 No 1mg mg tablet 6-10 00:00: 00 lisinopril 2019-0 No 1mg 20 5-30 mg-hydrochl 00:00: orothiazide 00 12.5 mg tablet lisinopril 2019-0 No 1mg 20 5-30 mg-hydrochl 00:00: orothiazide 00 12.5 mg tablet lisinopril 2019-0 No 1mg 20 5-30 mg-hydrochl 00:00: orothiazide 00 12.5 mg tablet lisinopril 2019-0 No 1mg 20 5-30 mg-hydrochl 00:00: orothiazide 00 12.5 mg tablet metformin 2019-0 No 1mg 1,000 mg 5-16 tablet 00:00: 00 metformin 2019-0 No 1mg 1,000 mg 5-16 tablet 00:00: 00 metformin 2019-0 No 1mg 1,000 mg 5-16 tablet 00:00: 00 metformin 2019-0 No 1mg 1,000 mg 5-16 tablet 00:00: 00 glipizide 5 2019-0 No 1mg mg tablet 5-10 00:00: 00 glipizide 5 2019-0 No 1mg mg tablet 5-10 00:00: 00 glipizide 5 2019-0 No 1mg mg tablet 5-10 00:00: 00 glipizide 5 2019-0 No 1mg mg tablet 5-10 00:00: 00 ketoconazol 2019-0 No 1% e 2 % 4-16 topical 00:00: cream ketoconazol 2019-0 No 1% e 2 % 4-16 topical 00:00: cream 00 ketoconazol 2019-0 No 1% e 2 % 4-16 topical 00:00: cream 00 ketoconazol 2019-0 No 1% e 2 % 4-16 topical 00:00: cream 00 glipizide 5 2019-0 No 1mg mg tablet 2- 00:00: 00 lisinopril 2019-0 No 1mg 20 2-01 mg-hydrochl 00:00: orothiazide 00 12.5 mg tablet metformin 2019-0 No 1mg 1,000 mg 2-01 tablet 00:00: 00 glipizide 5 2019-0 No 1mg mg tablet 2 00:00: 00 lisinopril 2019-0 No 1mg 20 2-01 mg-hydrochl 00:00: orothiazide 00 12.5 mg tablet metformin 2019-0 No 1mg 1,000 mg 2-01 tablet 00:00: 00 glipizide 5 2019-0 No 1mg mg tablet 2 00:00: 00 lisinopril 2019-0 No 1mg 20 2-01 mg-hydrochl 00:00: orothiazide 00 12.5 mg tablet metformin 2019-0 No 1mg 1,000 mg 2-01 tablet 00:00: 00 glipizide 5 2019-0 No 1mg mg tablet 2 00:00: 00 lisinopril 2019-0 No 1mg 20 2-01 mg-hydrochl 00:00: orothiazide 00 12.5 mg tablet metformin 2019-0 No 1mg 1,000 mg 2-01 tablet 00:00: 00 glipizide 5 2017-1 No 1mg mg tablet 2- 00:00: 00 glipizide 5 2017-1 No 1mg mg tablet 2- 00:00: 00 glipizide 5 2018-1 No 1mg mg tablet - 00:00: 00 glipizide 5 2017-11 No 1mg mg tablet - 00:00: 00 glipizide 5 2017-11 No 1mg mg tablet - 00:00: 00 glipizide 5 2017-11 No 1mg mg tablet - 00:00: 00 glipizide 5 2017-11 No 1mg mg tablet - 00:00: 00 glipizide 5 2017-11 No 1mg mg tablet - 00:00: 00 sulfamethox 2017- Yes [id number] 1{tbl} Take 1 [facility] azole-trime 0-12 tablet by ity of thoprim 00:00: mouth 2 [place] 800-160 mg 00 (two) Medical per tablet times Branch daily. traMADOL 50 2017-11 Yes [id number] 50mg Take 1 [facility] mg tablet 0-12 tablet by ity o f 00:00: mouth [place] 00 every 6 Medical (six) Branch hours as needed for Pain (scale 4-6) or Pain (scale 7-10). sulfamethox 2017-11 Yes [id number] 1{tbl} Take 1 [facility] azole-trime 0-12 tablet by ity of thoprim 00:00: mouth 2 [place] 800-160 mg 00 (two) Medical per tablet times Branch daily. traMADOL 50 2017-11 Yes [id number] 50mg Take 1 [facility] mg tablet 0-12 tablet by ity o f 00:00: mouth [place] 00 every 6 Medical (six) Branch hours as needed for Pain (scale 4-6) or Pain (scale 7-10). sulfamethox 2017-11 Yes [id number] 1{tbl} Take 1 [facility] azole-trime 0-12 tablet by ity of thoprim 00:00: mouth 2 [place] 800-160 mg 00 (two) Medical per tablet times Branch daily. traMADOL 50 2017-11 Yes [id number] 50mg Take 1 [facility] mg tablet 0-12 tablet by ity o f 00:00: mouth [place] 00 every 6 Medical (six) Branch hours as needed for Pain (scale 4-6) or Pain (scale 7-10). sulfamethox 2017-11 Yes [id number] 1{tbl} Take 1 [facility] azole-trime 0-12 tablet by ity of thoprim 00:00: mouth 2 [place] 800-160 mg 00 (two) Medical per tablet times Branch daily. traMADOL 50 2017-11 Yes [id number] 50mg Take 1 [facility] mg tablet 0-12 tablet by ity o f 00:00: mouth [place] 00 every 6 Medical (six) Branch hours as needed for Pain (scale 4-6) or Pain (scale 7-10). sulfamethox 2017-11 Yes [id number] 1{tbl} Take 1 [facility] azole-trime 0-12 tablet by ity of thoprim 00:00: mouth 2 [place] 800-160 mg 00 (two) Medical per tablet times Branch daily. traMADOL 50 2017-11 Yes [id number] 50mg Take 1 [facility] mg tablet 0-12 tablet by ity o f 00:00: mouth [place] 00 every 6 Medical (six) Branch hours as needed for Pain (scale 4-6) or Pain (scale 7-10). sulfamethox 2017-11 Yes [id number] 1{tbl} Take 1 [facility] azole-trime 0-12 tablet by ity of thoprim 00:00: mouth 2 [place] 800-160 mg 00 (two) Medical per tablet times Branch daily. traMADOL 50 2017-11 Yes [id number] 50mg Take 1 [facility] mg tablet 0-12 tablet by ity o f 00:00: mouth [place] 00 every 6 Medical (six) Branch hours as needed for Pain (scale 4-6) or Pain (scale 7-10). sulfamethox 2017-11 Yes [id number] 1{tbl} Take 1 [facility] azole-trime 0-12 tablet by ity of thoprim 00:00: mouth 2 [place] 800-160 mg 00 (two) Medical per tablet times Branch daily. traMADOL 50 2017-11 Yes [id number] 50mg Take 1 [facility] mg tablet 0-12 tablet by ity o f 00:00: mouth [place] 00 every 6 Medical (six) Branch hours as needed for Pain (scale 4-6) or Pain (scale 7-10). sulfamethox 2017- Yes [id number] 1{tbl} Take 1 [facility] azole-trime 0-12 tablet by ity of thoprim 00:00: mouth 2 [place] 800-160 mg 00 (two) Medical per tablet times Branch daily. traMADOL 50 2017-11 Yes [id number] 50mg Take 1 [facility] mg tablet 0-12 tablet by ity o f 00:00: mouth [place] 00 every 6 Medical (six) Branch hours as needed for Pain (scale 4-6) or Pain (scale 7-10). sulfamethox 2017-11 Yes [id number] 1{tbl} Take 1 [facility] azole-trime 0-12 tablet by ity of thoprim 00:00: mouth 2 [place] 800-160 mg 00 (two) Medical per tablet times Branch daily. traMADOL 50 2017-11 Yes [id number] 50mg Take 1 [facility] mg tablet 0-12 tablet by ity o f 00:00: mouth [place] 00 every 6 Medical (six) Branch hours as needed for Pain (scale 4-6) or Pain (scale 7-10). sulfamethox 2017-11 Yes [id number] 1{tbl} Take 1 [facility] azole-trime 0-12 tablet by ity of thoprim 00:00: mouth 2 [place] 800-160 mg 00 (two) Medical per tablet times Branch daily. traMADOL 50 2017-11 Yes [id number] 50mg Take 1 [facility] mg tablet 0-12 tablet by [facility] o f 00:00: mouth [place] 00 every 6 Medical (six) Branch hours as needed for Pain (scale 4-6) or Pain (scale 7-10). sulfamethox 2017-11 Yes [id number] 1{tbl} Take 1 [facility] azole-trime 0-12 tablet by [facility] of thoprim 00:00: mouth 2 [place] 800-160 mg 00 (two) Medical per tablet times Branch daily. traMADOL 50 2017-11 Yes [id number] 50mg Take 1 [facility] mg tablet 0-12 tablet by [facility] o f 00:00: mouth [place] 00 every 6 Medical (six) Branch hours as needed for Pain (scale 4-6) or Pain (scale 7-10). sulfamethox 2017-11 Yes [id number] 1{tbl} Take 1 [facility] azole-trime 0-12 tablet by [facility] of thoprim 00:00: mouth 2 [place] 800-160 mg 00 (two) Medical per tablet times Branch daily. traMADOL 50 2017-11 Yes [id number] 50mg Take 1 [facility] mg tablet 0-12 tablet by [facility] o f 00:00: mouth [place] 00 every 6 Medical (six) Branch hours as needed for Pain (scale 4-6) or Pain (scale 7-10). sulfamethox 2017-11 Yes [id number] 1{tbl} Take 1 [facility] azole-trime 0-12 tablet by [facility] of thoprim 00:00: mouth 2 [place] 800-160 mg 00 (two) Medical per tablet times Branch daily. traMADOL 50 2017-11 Yes [id number] 50mg Take 1 [facility] mg tablet 0-12 tablet by [facility] o f 00:00: mouth [place] 00 every 6 Medical (six) Branch hours as needed for Pain (scale 4-6) or Pain (scale 7-10). sulfamethox 2017-11 Yes [id number] 1{tbl} Take 1 [facility] azole-trime 0-12 tablet by [facility] of thoprim 00:00: mouth 2 [place] 800-160 mg 00 (two) Medical per tablet times Branch daily. traMADOL 50 2017-11 Yes [id number] 50mg Take 1 [facility] mg tablet 0-12 tablet by [facility] o f 00:00: mouth [place] 00 every 6 Medical (six) Branch hours as needed for Pain (scale 4-6) or Pain (scale 7-10). sulfamethox 2017-11 Yes [id number] 1{tbl} Take 1 [facility] azole-trime 0-12 tablet by [facility] of thoprim 00:00: mouth 2 [place] 800-160 mg 00 (two) Medical per tablet times Branch daily. traMADOL 50 2017-11 Yes [id number] 50mg Take 1 [facility] mg tablet 0-12 tablet by [facility] o f 00:00: mouth [place] 00 every 6 Medical (six) Branch hours as needed for Pain (scale 4-6) or Pain (scale 7-10). sulfamethox 2017-11 Yes [id number] 1{tbl} Take 1 [facility] azole-trime 0-12 tablet by [facility] thoprim 00:00: mouth 2 [place] 800-160 mg 00 (two) Medical per tablet times Branch daily. traMADOL 50 2017-11 Yes [id number] 50mg Take 1 [facility] mg tablet 0-12 tablet by ity o f 00:00: mouth [place] 00 every 6 Medical (six) Branch hours as needed for Pain (scale 4-6) or Pain (scale 7-10). sulfamethox 2017-11 Yes [id number] 1{tbl} Take 1 [facility] azole-trime 0-12 tablet by [facility] of thoprim 00:00: mouth 2 [place] 800-160 mg 00 (two) Medical per tablet times Branch daily. traMADOL 50 2017-11 Yes [id number] 50mg Take 1 [facility] mg tablet 0-12 tablet by ity o f 00:00: mouth [place] 00 every 6 Medical (six) Branch hours as needed for Pain (scale 4-6) or Pain (scale 7-10). sulfamethox 2017-11 Yes [id number] 1{tbl} Take 1 [facility] azole-trime 0-12 tablet by [facility] of thoprim 00:00: mouth 2 [place] 800-160 mg 00 (two) Medical per tablet times Branch daily. traMADOL 50 2017-11 Yes [id number] 50mg Take 1 [facility] mg tablet 0-12 tablet by ity o f 00:00: mouth [place] 00 every 6 Medical (six) Branch hours as needed for Pain (scale 4-6) or Pain (scale 7-10). sulfamethox 2017-11 Yes [id number] 1{tbl} Take 1 [facility] azole-trime 0-12 tablet by [facility] of thoprim 00:00: mouth 2 [place] 800-160 mg 00 (two) Medical per tablet times Branch daily. traMADOL 50 2017-11 Yes [id number] 50mg Take 1 [facility] mg tablet 0-12 tablet by ity o f 00:00: mouth [place] 00 every 6 Medical (six) Branch hours as needed for Pain (scale 4-6) or Pain (scale 7-10). sulfamethox 2017-11 Yes [id number] 1{tbl} Take 1 [facility] azole-trime 0-12 tablet by [facility] of thoprim 00:00: mouth 2 [place] 800-160 mg 00 (two) Medical per tablet times Branch daily. traMADOL 50 2017-11 Yes [id number] 50mg Take 1 [facility] mg tablet 0-12 tablet by ity o f 00:00: mouth [place] 00 every 6 Medical (six) Branch hours as needed for Pain (scale 4-6) or Pain (scale 7-10). sulfamethox 2017-11 Yes [id number] 1{tbl} Take 1 [facility] azole-trime 0-12 tablet by [facility] of thoprim 00:00: mouth 2 [place] 800-160 mg 00 (two) Medical per tablet times Branch daily. traMADOL 50 2017-11 Yes [id number] 50mg Take 1 [facility] mg tablet 0-12 tablet by ity o f 00:00: mouth [place] 00 every 6 Medical (six) Branch hours as needed for Pain (scale 4-6) or Pain (scale 7-10). sulfamethox 2017-11 Yes [id number] 1{tbl} Take 1 [facility] azole-trime 0-12 tablet by [facility] of thoprim 00:00: mouth 2 [place] 800-160 mg 00 (two) Medical per tablet times Branch daily. traMADOL 50 2017-11 Yes [id number] 50mg Take 1 [facility] mg tablet 0-12 tablet by ity o f 00:00: mouth [place] 00 every 6 Medical (six) Branch hours as needed for Pain (scale 4-6) or Pain (scale 7-10). lisinopril 2017-11 No 1mg 20 0-09 mg-hydrochl 00:00: orothiazide 00 12.5 mg tablet metformin 2017-11 No 1mg 1,000 mg 0-09 tablet 00:00: 00 lisinopril 2017-11 No 1mg 20 0-09 mg-hydrochl 00:00: orothiazide 00 12.5 mg tablet metformin 2017-11 No 1mg 1,000 mg 0-09 tablet 00:00: 00 lisinopril 2017-11 No 1mg 20 0-09 mg-hydrochl 00:00: orothiazide 00 12.5 mg tablet metformin 2017-11 No 1mg 1,000 mg 0-09 tablet 00:00: 00 lisinopril 2017-11 No 1mg 20 0-09 mg-hydrochl 00:00: orothiazide 00 12.5 mg tablet metformin 2017-11 No 1mg 1,000 mg 0-09 tablet 00:00: 00 lisinopril Yes 20mg Take 20 mg [facility] (PRINIVIL,Z 9- by mouth ity of ESTRIL) 20 20:04: [...] Medical times Branch daily with meals. ibuprofen 2018-0 Yes 600mg Take 1 [facility] rs 600 mg 9-26 tablet by ity of tablet 00:00: mouth [place] 00 every 6 Medical (six) Branch hours as needed for Pain (scale 4-6) or Alternate with [place] for pain scale 1-3. LORazepam 2018-0 Yes .5mg Take 1 [facility] s 0.5 mg 9-26 tablet by ity of tablet 00:00: mouth at [place] 00 bedtime as Medical needed for Branch Anxiety. ibuprofen 2018-0 Yes 600mg Take 1 [facility] rs 600 mg 9-26 tablet by ity of tablet 00:00: mouth [place] 00 every 6 Medical (six) Branch hours as needed for Pain (scale 4-6) or Alternate with [place] for pain scale 1-3. LORazepam 2018-0 Yes .5mg Take 1 [facility] s 0.5 mg 9-26 tablet by ity of tablet 00:00: mouth at [place] 00 bedtime as Medical needed for Branch Anxiety. ibuprofen 2018-0 Yes 600mg Take 1 [facility] rs 600 mg 9-26 tablet by ity of tablet 00:00: mouth [place] 00 every 6 Medical (six) Branch hours as needed for Pain (scale 4-6) or Alternate with [place] for pain scale 1-3. LORazepam 2018-0 Yes .5mg Take 1 [facility] s 0.5 mg 9-26 tablet by ity of tablet 00:00: mouth at [place] 00 bedtime as Medical needed for Branch Anxiety. ibuprofen 2018-0 Yes 600mg Take 1 [facility] rs 600 mg 9-26 tablet by ity of tablet 00:00: mouth [place] 00 every 6 Medical (six) Branch hours as needed for Pain (scale 4-6) or Alternate with [place] for pain scale 1-3. LORazepam 2018-0 Yes .5mg Take 1 Univer s 0.5 mg 9-26 tablet by ity of tablet 00:00: mouth at [place] 00 bedtime as Medical needed for Branch Anxiety. ibuprofen 2018-0 Yes 600mg Take 1 [facility] rs 600 mg 9-26 tablet by ity of tablet 00:00: mouth [place] 00 every 6 Medical (six) Branch hours as needed for Pain (scale 4-6) or Alternate with [place] for pain scale 1-3. LORazepam 2018-0 Yes [...] for Pain (scale 4-6) or Alternate with [place] for pain scale 1-3. LORazepam 2018-0 Yes [...] for Pain (scale 4-6) or Alternate with [place] for pain scale 1-3. LORazepam 2018-0 Yes [...] for Pain (scale 4-6) or Alternate with [place] for pain scale 1-3. LORazepam 2018-0 Yes [...] for Pain (scale 4-6) or Alternate with [place] for pain scale 1-3. LORazepam 2018-0 Yes [...] for Pain (scale 4-6) or Alternate with [place] for pain scale 1-3. LORazepam 2018-0 Yes [...] for Pain (scale 4-6) or Alternate with [place] for pain scale 1-3. LORazepam 2018-0 Yes [...] for Pain (scale 4-6) or Alternate with [place] for pain scale 1-3. LORazepam 2018-0 Yes [...] for Pain (scale 4-6) or Alternate with [place] for pain scale 1-3. LORazepam 2018-0 Yes [...] for Pain (scale 4-6) or Alternate with [place] for pain scale 1-3. LORazepam 2018-0 Yes [...] for Pain (scale 4-6) or Alternate with [place] for pain scale 1-3. LORazepam 2018-0 Yes [...] for Pain (scale 4-6) or Alternate with [place] for pain scale 1-3. LORazepam 2018-0 Yes [...] for Pain (scale 4-6) or Alternate with [place] for pain scale 1-3. LORazepam 2018-0 Yes [...] for Pain (scale 4-6) or Alternate with [place] for pain scale 1-3. LORazepam 2018-0 Yes [...] for Pain (scale 4-6) or Alternate with [place] for pain scale 1-3. LORazepam 2018-0 Yes [...] for Pain (scale 4-6) or Alternate with [place] for pain scale 1-3. LORazepam 2018-0 Yes [...] for Pain (scale 4-6) or Alternate with [place] for pain scale 1-3. LORazepam 2018-0 Yes [...] for Pain (scale 4-6) or Alternate with [place] for pain scale 1-3. LORazepam 2018-0 Yes .5mg Take 1 [facility] s 0.5 mg 9-26 tablet by ity of tablet 00:00: mouth at [place] 00 bedtime as Medical needed for Branch Anxiety. Tegretol 2018-0 No 3mg 200 mg 9-18 tablet 00:00: 00 benztropine 2018-0 No 1mg 2 mg tablet 08-03 00:00: 00 propranolol 2018-0 No 1mg 40 mg 9-18 tablet 00:00: 00 Risperdal 4 2018-0 No 2mg mg tablet 08-03 00:00: 00 amitriptyli 2018-0 No 2mg ne 50 mg 9-18 tablet 00:00: 00 Tegretol 2018-0 No 3mg 200 mg 9-18 tablet 00:00: 00 benztropine 2018-0 No 1mg 2 mg tablet 08-03 00:00: 00 propranolol 2018-0 No 1mg 40 mg 9-18 tablet 00:00: 00 Risperdal 4 2018-0 No 2mg mg tablet 08-03 00:00: 00 amitriptyli 2018-0 No 2mg ne 50 mg 9-18 tablet 00:00: 00 Tegretol 2018-0 No 3mg 200 mg 9-18 tablet 00:00: 00 benztropine 2018-0 No 1mg 2 mg tablet 08-03 00:00: 00 propranolol 2018-0 No 1mg 40 mg 9-18 tablet 00:00: 00 Risperdal 4 2018-0 No 2mg mg tablet 08-03 00:00: 00 amitriptyli 2018-0 No 2mg ne 50 mg 9-18 tablet 00:00: 00 Tegretol 2018-0 No 3mg 200 mg 9-18 tablet 00:00: 00 benztropine 2018-0 No 1mg 2 mg tablet 08-03 00:00: 00 propranolol 2018-0 No 1mg 40 mg 9-18 tablet 00:00: 00 Risperdal 4 2018-0 No 2mg mg tablet 08-03 00:00: 00 amitriptyli 2018-0 No 2mg ne 50 mg 9-18 tablet 00:00: 00 clotrimazol 2018-0 No 1% e 1 % 7-12 vaginal 00:00: cream 00 Diflucan 2018-0 No 1mg 100 mg 7-12 tablet 00:00: 00 clotrimazol 2018-0 No 1% e 1 % 7-12 vaginal 00:00: cream 00 Diflucan 2018-0 No 1mg 100 mg 7-12 tablet 00:00: 00 clotrimazol 2018-0 No 1% e 1 % 7-12 vaginal 00:00: cream 00 Diflucan 2018-0 No 1mg 100 mg 7-12 tablet 00:00: 00 clotrimazol 2018-0 No 1% e 1 % 7-12 vaginal 00:00: cream 00 Diflucan 2018-0 No 1mg 100 mg 7-12 tablet 00:00: 00 lisinopril 2018-0 No 1mg 20 7-10 mg-hydrochl 00:00: orothiazide 00 12.5 mg tablet glipizide 5 2018-0 No 1mg mg tablet 05-25 00:00: 00 lisinopril 2018-0 No 1mg 20 7-10 mg-hydrochl 00:00: orothiazide 00 12.5 mg tablet glipizide 5 2018-0 No 1mg mg tablet 05-25 00:00: 00 lisinopril 2018-0 No 1mg 20 7-10 mg-hydrochl 00:00: orothiazide 00 12.5 mg tablet glipizide 5 2018-0 No 1mg mg tablet 7-10 00:00: 00 lisinopril 2018-0 No 1mg 20 7-10 mg-hydrochl 00:00: orothiazide 00 12.5 mg tablet glipizide 5 2018-0 No 1mg mg tablet 7-10 00:00: 00 metoprolol 2018-0 No 1mg tartrate 25 5-18 mg tablet 00:00: 00 metformin 2018-0 No 1mg 1,000 mg 5-18 tablet 00:00: 00 lisinopril 2018-0 No 1mg 20 5-18 mg-hydrochl 00:00: orothiazide 00 12.5 mg tablet metoprolol 2018-0 No 1mg tartrate 25 5-18 mg tablet 00:00: 00 metformin 2018-0 No 1mg 1,000 mg 5-18 tablet 00:00: 00 lisinopril 2018-0 No 1mg 20 5-18 mg-hydrochl 00:00: orothiazide 00 12.5 mg tablet metoprolol 2018-0 No 1mg tartrate 25 5-18 mg tablet 00:00: 00 metformin 2018-0 No 1mg 1,000 mg 5-18 tablet 00:00: 00 lisinopril 2018-0 No 1mg 20 5-18 mg-hydrochl 00:00: orothiazide 00 12.5 mg tablet metoprolol 2018-0 No 1mg tartrate 25 5-18 mg tablet 00:00: 00 metformin 2018-0 No 1mg 1,000 mg 5-18 tablet 00:00: 00 lisinopril 2018-0 No 1mg 20 5-18 mg-hydrochl 00:00: orothiazide 00 12.5 mg tablet metformin 2018-0 No 1mg 1,000 mg 1-11 tablet 00:00: 00 metoprolol 2018-0 No 1mg tartrate 25 1-11 mg tablet 00:00: 00 lisinopril 2018-0 No 1mg 20 1-11 mg-hydrochl 00:00: orothiazide 00 12.5 mg tablet metformin 2018-0 No 1mg 1,000 mg 1-11 tablet 00:00: 00 metoprolol 2018-0 No 1mg tartrate 25 1-11 mg tablet 00:00: 00 lisinopril 2018-0 No 1mg 20 1-11 mg-hydrochl 00:00: orothiazide 00 12.5 mg tablet metformin 2018-0 No 1mg 1,000 mg 1-11 tablet 00:00: 00 metoprolol 2018-0 No 1mg tartrate 25 1-11 mg tablet 00:00: 00 lisinopril 2018-0 No 1mg 20 1-11 mg-hydrochl 00:00: orothiazide 00 12.5 mg tablet metformin 2018-0 No 1mg 1,000 mg 1-11 tablet 00:00: 00 metoprolol 2018-0 No 1mg tartrate 25 1-11 mg tablet 00:00: 00 lisinopril 2018-0 No 1mg 20 1-11 mg-hydrochl 00:00: orothiazide 00 12.5 mg tablet acyclovir 2017-1 No 1mg 800 mg 1-22 tablet 00:00: 00 gabapentin 2017-1 No 1mg 100 mg 1-22 capsule 00:00: 00 acyclovir 2017-1 No 1mg 800 mg 1-22 tablet 00:00: 00 gabapentin 2017-1 No 1mg 100 mg 1-22 capsule 00:00: 00 acyclovir 2017-1 No 1mg 800 mg 1-22 tablet 00:00: 00 gabapentin 2017-1 No 1mg 100 mg 1-22 capsule 00:00: 00 acyclovir 2017-1 No 1mg 800 mg 1-22 tablet 00:00: 00 gabapentin 2017-1 No 1mg 100 mg 1-22 capsule 00:00: 00 metformin 2017-0 No 1mg 1,000 mg 9-22 tablet 00:00: 00 metoprolol 2017-0 No 1mg tartrate 25 9-22 mg tablet 00:00: 00 lisinopril 2017-0 No 1mg 20 9-22 mg-hydrochl 00:00: orothiazide 00 12.5 mg tablet metformin 2017-0 No 1mg 1,000 mg 9-22 tablet 00:00: 00 metoprolol 2017-0 No 1mg tartrate 25 9-22 mg tablet 00:00: 00 lisinopril 2017-0 No 1mg 20 9-22 mg-hydrochl 00:00: orothiazide 00 12.5 mg tablet metformin 2017-0 No 1mg 1,000 mg 9-22 tablet 00:00: 00 metoprolol 2017-0 No 1mg tartrate 25 9-22 mg tablet 00:00: 00 lisinopril 2017-0 No 1mg 20 9-22 mg-hydrochl 00:00: orothiazide 00 12.5 mg tablet metformin 2017-0 No 1mg 1,000 mg 9-22 tablet 00:00: 00 metoprolol 2017-0 No 1mg tartrate 25 9-22 mg tablet 00:00: 00 lisinopril 2017-0 No 1mg 20 9-22 mg-hydrochl 00:00: orothiazide 00 12.5 mg tablet pravastatin 2017-0 No 1mg 40 mg 6-13 tablet 00:00: 00 pravastatin 2017-0 No 1mg 40 mg 6-13 tablet 00:00: 00 pravastatin 2017-0 No 1mg 40 mg 6-13 tablet 00:00: 00 pravastatin 2017-0 No 1mg 40 mg 6-13 tablet 00:00: 00 pravastatin 2017-0 No 1mg 40 mg 6-13 tablet 00:00: 00 pravastatin 2017-0 No 1mg 40 mg 6-13 tablet 00:00: 00 pravastatin 2017-0 No 1mg 40 mg 6-13 tablet 00:00: 00 pravastatin 2017-0 No 1mg 40 mg 6-13 tablet 00:00: 00 pravastatin 2017-0 No 1mg 20 mg 6-08 tablet 00:00: 00 metformin 2017-0 No 1mg 1,000 mg 6-08 tablet 00:00: 00 metoprolol 2017-0 No 1mg tartrate 25 6-08 mg tablet 00:00: 00 lisinopril 2017-0 No 1mg 20 6-08 mg-hydrochl 00:00: orothiazide 00 12.5 mg tablet pravastatin 2017-0 No 1mg 20 mg 6-08 tablet 00:00: 00 metformin 2017-0 No 1mg 1,000 mg 6-08 tablet 00:00: 00 metoprolol 2017-0 No 1mg tartrate 25 6-08 mg tablet 00:00: 00 lisinopril 2017-0 No 1mg 20 6-08 mg-hydrochl 00:00: orothiazide 00 12.5 mg tablet pravastatin 2017-0 No 1mg 20 mg 6-08 tablet 00:00: 00 metformin 2017-0 No 1mg 1,000 mg 6-08 tablet 00:00: 00 metoprolol 2017-0 No 1mg tartrate 25 6-08 mg tablet 00:00: 00 lisinopril 2017-0 No 1mg 20 6-08 mg-hydrochl 00:00: orothiazide 00 12.5 mg tablet pravastatin 2017-0 No 1mg 20 mg 6-08 tablet 00:00: 00 metformin 2017-0 No 1mg 1,000 mg 6-08 tablet 00:00: 00 metoprolol 2017-0 No 1mg tartrate 25 6-08 mg tablet 00:00: 00 lisinopril 2017-0 No 1mg 20 6-08 mg-hydrochl 00:00: orothiazide 00 12.5 mg tablet pravastatin 2017-0 No 1mg 20 mg 5-25 tablet 00:00: 00 metoprolol 2017-0 No 1mg tartrate 25 5-25 mg tablet 00:00: 00 metformin 2017-0 No 1mg 1,000 mg 5-25 tablet 00:00: 00 lisinopril 2017-0 No 1mg 20 5-25 mg-hydrochl 00:00: orothiazide 00 12.5 mg tablet pravastatin 2017-0 No 1mg 20 mg 5-25 tablet 00:00: 00 metoprolol 2017-0 No 1mg tartrate 25 5-25 mg tablet 00:00: 00 metformin 2017-0 No 1mg 1,000 mg 5-25 tablet 00:00: 00 lisinopril 2017-0 No 1mg 20 5-25 mg-hydrochl 00:00: orothiazide 00 12.5 mg tablet pravastatin 2017-0 No 1mg 20 mg 5-25 tablet 00:00: 00 metoprolol 2017-0 No 1mg tartrate 25 5-25 mg tablet 00:00: 00 metformin 2017-0 No 1mg 1,000 mg 5-25 tablet 00:00: 00 lisinopril 2017-0 No 1mg 20 5-25 mg-hydrochl 00:00: orothiazide 00 12.5 mg tablet pravastatin 2017-0 No 1mg 20 mg 5-25 tablet 00:00: 00 metoprolol 2017-0 No 1mg tartrate 25 5-25 mg tablet 00:00: 00 metformin 2017-0 No 1mg 1,000 mg 5-25 tablet 00:00: 00 lisinopril 2017-0 No 1mg 20 5-25 mg-hydrochl 00:00: orothiazide 00 12.5 mg tablet pravastatin 2017-0 No 1mg 20 mg 4-20 tablet 00:00: 00 metoprolol 2017-0 No 1mg tartrate 25 4-20 mg tablet 00:00: 00 metformin 2017-0 No 1mg 1,000 mg 4-20 tablet 00:00: 00 lisinopril 2017-0 No 1mg 20 4-20 mg-hydrochl 00:00: orothiazide 00 12.5 mg tablet pravastatin 2017-0 No 1mg 20 mg 4-20 tablet 00:00: 00 metoprolol 2017-0 No 1mg tartrate 25 4-20 mg tablet 00:00: 00 metformin 2017-0 No 1mg 1,000 mg 4-20 tablet 00:00: 00 lisinopril 2017-0 No 1mg 20 4-20 mg-hydrochl 00:00: orothiazide 00 12.5 mg tablet pravastatin 2017-0 No 1mg 20 mg 4-20 tablet 00:00: 00 metoprolol 2017-0 No 1mg tartrate 25 4-20 mg tablet 00:00: 00 metformin 2017-0 No 1mg 1,000 mg 4-20 tablet 00:00: 00 lisinopril 2017-0 No 1mg 20 4-20 mg-hydrochl 00:00: orothiazide 00 12.5 mg tablet pravastatin 2017-0 No 1mg 20 mg 4-20 tablet 00:00: 00 metoprolol 2017-0 No 1mg tartrate 25 4-20 mg tablet 00:00: 00 metformin 2017-0 No 1mg 1,000 mg 4-20 tablet 00:00: 00 lisinopril 2017-0 No 1mg 20 4-20 mg-hydrochl 00:00: orothiazide 00 12.5 mg tablet pravastatin 2017-0 No 1mg 20 mg 3-23 tablet 00:00: 00 metoprolol 2017-0 No 1mg tartrate 25 3-23 mg tablet 00:00: 00 metformin 2017-0 No 1mg 1,000 mg 3-23 tablet 00:00: 00 lisinopril 2017-0 No 1mg 20 3-23 mg-hydrochl 00:00: orothiazide 00 12.5 mg tablet pravastatin 2017-0 No 1mg 20 mg 3-23 tablet 00:00: 00 metoprolol 2017-0 No 1mg tartrate 25 3-23 mg tablet 00:00: 00 metformin 2017-0 No 1mg 1,000 mg 3-23 tablet 00:00: 00 lisinopril 2017-0 No 1mg 20 3-23 mg-hydrochl 00:00: orothiazide 00 12.5 mg tablet pravastatin 2017-0 No 1mg 20 mg 3-23 tablet 00:00: 00 metoprolol 2017-0 No 1mg tartrate 25 3-23 mg tablet 00:00: 00 metformin 2017-0 No 1mg 1,000 mg 3-23 tablet 00:00: 00 lisinopril 2017-0 No 1mg 20 3-23 mg-hydrochl 00:00: orothiazide 00 12.5 mg tablet pravastatin 2017-0 No 1mg 20 mg 3-23 tablet 00:00: 00 metoprolol 2017-0 No 1mg tartrate 25 3-23 mg tablet 00:00: 00 metformin 2017-0 No 1mg 1,000 mg 3-23 tablet 00:00: 00 lisinopril 2017-0 No 1mg 20 3-23 mg-hydrochl 00:00: orothiazide 00 12.5 mg tablet pravastatin 2015-1 No 1mg 20 mg 2-17 tablet 00:00: 00 pravastatin 2016-1 No 1mg 20 mg 2-17 tablet 00:00: 00 pravastatin 2015-1 No 1mg 20 mg 2-17 tablet 00:00: 00 pravastatin 2015-1 No 1mg 20 mg 2-17 tablet 00:00: 00 metoprolol 2015-1 No 1mg tartrate 25 2-01 mg tablet 00:00: 00 metformin 2015-1 No 1mg 1,000 mg 2-01 tablet 00:00: 00 lisinopril 2015-1 No 1mg 20 2-01 mg-hydrochl 00:00: orothiazide 00 12.5 mg tablet pravastatin 2015-1 No 1mg 10 mg 2-01 tablet 00:00: 00 metoprolol 2015-1 No 1mg tartrate 25 2-01 mg tablet 00:00: 00 metformin 2015-1 No 1mg 1,000 mg 2-01 tablet 00:00: 00 lisinopril 2015-1 No 1mg 20 2-01 mg-hydrochl 00:00: orothiazide 00 12.5 mg tablet pravastatin 2015-1 No 1mg 10 mg 2-01 tablet 00:00: 00 metoprolol 2015-11 No 1mg tartrate 25 2-01 mg tablet 00:00: 00 metformin 2015-11 No 1mg 1,000 mg 2-01 tablet 00:00: 00 lisinopril 2015-11 No 1mg 20 2-01 mg-hydrochl 00:00: orothiazide 00 12.5 mg tablet pravastatin 2015-11 No 1mg 10 mg 2-01 tablet 00:00: 00 metoprolol 2015-11 No 1mg tartrate 25 2-01 mg tablet 00:00: 00 metformin 2015-11 No 1mg 1,000 mg 2-01 tablet 00:00: 00 lisinopril 2015-11 No 1mg 20 2-01 mg-hydrochl 00:00: orothiazide 00 12.5 mg tablet pravastatin 2015-11 No 1mg 10 mg 2-01 tablet 00:00: 00 aspirin 81 2015-11 No 1mg mg 1-22 tablet,sundeep 00:00: yed release 00 clonidine 2015-11 No 1mg HCl 0.1 mg 1-22 tablet 00:00: 00 lisinopril 2015-11 No 1mg 20 1-22 mg-hydrochl 00:00: orothiazide 00 12.5 mg tablet pravastatin 2015-11 No 1mg 10 mg 1-22 tablet 00:00: 00 glimepiride 2015-11 No 1mg 2 mg tablet 22 00:00: 00 aspirin 81 2015-11 No 1mg mg 1-22 tablet,sundeep 00:00: yed release 00 clonidine 2015-11 No 1mg HCl 0.1 mg 1-22 tablet 00:00: 00 lisinopril 2015-11 No 1mg 20 1-22 mg-hydrochl 00:00: orothiazide 00 12.5 mg tablet pravastatin 2015-11 No 1mg 10 mg 1-22 tablet 00:00: 00 glimepiride 2015-11 No 1mg 2 mg tablet 22 00:00: 00 aspirin 81 2015-11 No 1mg mg 1-22 tablet,sundeep 00:00: yed release 00 clonidine 2015-11 No 1mg HCl 0.1 mg 1-22 tablet 00:00: 00 lisinopril 2015-11 No 1mg 20 1-22 mg-hydrochl 00:00: orothiazide 00 12.5 mg tablet pravastatin 2016-1 No 1mg 10 mg 1-22 tablet 00:00: 00 glimepiride 2016-1 No 1mg 2 mg tablet 122 00:00: 00 aspirin 81 2015-1 No 1mg mg 1-22 tablet,sundeep 00:00: yed release 00 clonidine 2015-1 No 1mg HCl 0.1 mg 1-22 tablet 00:00: 00 lisinopril 2015-1 No 1mg 20 1-22 mg-hydrochl 00:00: orothiazide 00 12.5 mg tablet pravastatin 2016-1 No 1mg 10 mg 1-22 tablet 00:00: 00 glimepiride 2015-1 No 1mg 2 mg tablet 22 00:00: 00 aspirin 81 2016-0 No 1mg mg 8-25 tablet,sundeep 00:00: yed release 00 clonidine 2016-0 No 1mg HCl 0.1 mg 8-25 tablet 00:00: 00 pravastatin 2016-0 No 1mg 10 mg 8-25 tablet 00:00: 00 glimepiride 2016-0 No 1mg 2 mg tablet 825 00:00: 00 aspirin 81 2016-0 No 1mg mg 8-25 tablet,sundeep 00:00: yed release 00 clonidine 2016-0 No 1mg HCl 0.1 mg 8-25 tablet 00:00: 00 pravastatin 2016-0 No 1mg 10 mg 8-25 tablet 00:00: 00 glimepiride 2016-0 No 1mg 2 mg tablet 825 00:00: 00 aspirin 81 2016-0 No 1mg mg 8-25 tablet,sundeep 00:00: yed release 00 aspirin 81 2016-0 No 1mg mg 8-25 tablet,sundeep 00:00: yed release 00 clonidine 2016-0 No 1mg HCl 0.1 mg 8-25 tablet 00:00: 00 pravastatin 2016-0 No 1mg 10 mg 8-25 tablet 00:00: 00 glimepiride 2016-0 No 1mg 2 mg tablet 825 00:00: 00 clonidine 2016-0 No 1mg HCl 0.1 mg 8-25 tablet 00:00: 00 pravastatin 2016-0 No 1mg 10 mg 8-25 tablet 00:00: 00 glimepiride 2016-0 No 1mg 2 mg tablet 8-25 00:00: 00 lisinopril 2016-0 No 1mg 20 8-11 mg-hydrochl 00:00: orothiazide 00 12.5 mg tablet lisinopril 2016-0 No 1mg 20 8-11 mg-hydrochl 00:00: orothiazide 00 12.5 mg tablet lisinopril 2016-0 No 1mg 20 8-11 mg-hydrochl 00:00: orothiazide 00 12.5 mg tablet lisinopril 2016-0 No 1mg 20 8-11 mg-hydrochl 00:00: orothiazide 00 12.5 mg tablet Novolin N 2016-0 No 30unit/ 100 unit/mL 7-07 mL subcutaneou 00:00: s 00 suspension metoprolol 2016-0 No 1mg tartrate 25 7-07 mg tablet 00:00: 00 metformin 2016-0 No 1mg 1,000 mg 7-07 tablet 00:00: 00 lisinopril 2016-0 No 1mg 20 mg 7-07 tablet 00:00: 00 clonidine 2016-0 No 1mg HCl 0.1 mg 7-07 tablet 00:00: 00 lisinopril 2016-0 No 1mg 20 7-07 mg-hydrochl 00:00: orothiazide 00 12.5 mg tablet Novolin N 2016-0 No 30unit/ 100 unit/mL 7-07 mL subcutaneou 00:00: s 00 suspension metoprolol 2016-0 No 1mg tartrate 25 7-07 mg tablet 00:00: 00 metformin 2016-0 No 1mg 1,000 mg 7-07 tablet 00:00: 00 lisinopril 2016-0 No 1mg 20 mg 7-07 tablet 00:00: 00 clonidine 2016-0 No 1mg HCl 0.1 mg 7-07 tablet 00:00: 00 lisinopril 2016-0 No 1mg 20 7-07 mg-hydrochl 00:00: orothiazide 00 12.5 mg tablet Novolin N 2016-0 No 30unit/ 100 unit/mL 7-07 mL subcutaneou 00:00: s 00 suspension metoprolol 2016-0 No 1mg tartrate 25 7-07 mg tablet 00:00: 00 metformin 2016-0 No 1mg 1,000 mg 7-07 tablet 00:00: 00 lisinopril 2016-0 No 1mg 20 mg 7-07 tablet 00:00: 00 clonidine 2015-0 No 1mg HCl 0.1 mg 7-07 tablet 00:00: 00 lisinopril 2015-0 No 1mg 20 7-07 mg-hydrochl 00:00: orothiazide 00 12.5 mg tablet Novolin N 2015-0 No 30unit/ 100 unit/mL 7-07 mL subcutaneou 00:00: s 00 suspension metoprolol 2015-0 No 1mg tartrate 25 7-07 mg tablet 00:00: 00 metformin 2015-0 No 1mg 1,000 mg 7-07 tablet 00:00: 00 lisinopril 2015-0 No 1mg 20 mg 7-07 tablet 00:00: 00 clonidine 2015- No 1mg HCl 0.1 mg 7-07 tablet 00:00: 00 lisinopril 2015-0 No 1mg 20 7-07 mg-hydrochl 00:00: orothiazide 00 12.5 mg tablet metoprolol 2015-0 No 1mg tartrate 25 6-28 mg tablet 00:00: 00 metoprolol 2015-0 No 1mg tartrate 25 6-28 mg tablet 00:00: 00 metoprolol 2015-0 No 1mg tartrate 25 6-28 mg tablet 00:00: 00 metoprolol 2015-0 No 1mg tartrate 25 6-28 mg tablet 00:00: 00 risperiDONE 2015-0 Yes 4mg Q.5D Take [address] [facility] (RISPERDAL) 6-26 by mouth 2 [place] 4 MG tablet 13:28: (two) Medic al 33 times Center daily. insulin 0 Yes To use [address] [facility] syringe-nee 6-24 day. [facility] 1 00:00: Medica l mL 31 x 00 Center 5/16" Syrg metoprolol 2015-0 No 1mg tartrate 25 5-12 mg tablet 00:00: 00 amlodipine 2015-0 No 1mg 10 mg 5-12 tablet 00:00: 00 lisinopril 2015-0 No 1mg 20 mg 5-12 tablet 00:00: 00 clonidine 2015-0 No 1mg HCl 0.1 mg 5-12 tablet 00:00: 00 lisinopril 0 No 1mg 20 5-12 mg-hydrochl 00:00: orothiazide 00 12.5 mg tablet metoprolol 2016-0 No 1mg tartrate 25 5-12 mg tablet 00:00: 00 amlodipine 2016-0 No 1mg 10 mg 5-12 tablet 00:00: 00 metoprolol 2016-0 No 1mg tartrate 25 5-12 mg tablet 00:00: 00 amlodipine 2016-0 No 1mg 10 mg 5-12 tablet 00:00: 00 lisinopril 2016-0 No 1mg 20 mg 5-12 tablet 00:00: 00 clonidine 2016-0 No 1mg HCl 0.1 mg 5-12 tablet 00:00: 00 lisinopril 2016-0 No 1mg 20 5-12 mg-hydrochl 00:00: orothiazide 00 12.5 mg tablet lisinopril 2016-0 No 1mg 20 mg 5-12 tablet 00:00: 00 clonidine 2016-0 No 1mg HCl 0.1 mg 5-12 tablet 00:00: 00 lisinopril 2016-0 No 1mg 20 5-12 mg-hydrochl 00:00: orothiazide 00 12.5 mg tablet metoprolol 2016-0 No 1mg tartrate 25 5-12 mg tablet 00:00: 00 amlodipine 2016-0 No 1mg 10 mg 5-12 tablet 00:00: 00 lisinopril 2016-0 No 1mg 20 mg 5-12 tablet 00:00: 00 clonidine 2016-0 No 1mg HCl 0.1 mg 5-12 tablet 00:00: 00 lisinopril 2016-0 No 1mg 20 5-12 mg-hydrochl 00:00: orothiazide 00 12.5 mg tablet metoprolol 2016-0 No 5mg tartrate 25 4-14 mg tablet 00:00: 00 amlodipine 2016-0 No 1mg 10 mg 4-14 tablet 00:00: 00 lisinopril 2016-0 No 1mg 20 mg 4-14 tablet 00:00: 00 clonidine 2016-0 No 1mg HCl 0.2 mg 4-14 tablet 00:00: 00 lisinopril 2016-0 No 1mg 20 4-14 mg-hydrochl 00:00: orothiazide 00 12.5 mg tablet metoprolol 2016-0 No 5mg tartrate 25 4-14 mg tablet 00:00: 00 amlodipine 2016-0 No 1mg 10 mg 4-14 tablet 00:00: 00 lisinopril 2016-0 No 1mg 20 mg 4-14 tablet 00:00: 00 clonidine 2016-0 No 1mg HCl 0.2 mg 4-14 tablet 00:00: 00 lisinopril 2016-0 No 1mg 20 4-14 mg-hydrochl 00:00: orothiazide 00 12.5 mg tablet metoprolol 2016-0 No 5mg tartrate 25 4-14 mg tablet 00:00: 00 amlodipine 2016-0 No 1mg 10 mg 4-14 tablet 00:00: 00 lisinopril 2016-0 No 1mg 20 mg 4-14 tablet 00:00: 00 clonidine 2016-0 No 1mg HCl 0.2 mg 4-14 tablet 00:00: 00 lisinopril 2016-0 No 1mg 20 4-14 mg-hydrochl 00:00: orothiazide 00 12.5 mg tablet metoprolol 2016-0 No 5mg tartrate 25 4-14 mg tablet 00:00: 00 amlodipine 2016-0 No 1mg 10 mg 4-14 tablet 00:00: 00 lisinopril 2016-0 No 1mg 20 mg 4-14 tablet 00:00: 00 clonidine 2016-0 No 1mg HCl 0.2 mg 4-14 tablet 00:00: 00 lisinopril 2016-0 No 1mg 20 4-14 mg-hydrochl 00:00: orothiazide 00 12.5 mg tablet lisinopril 2016-0 No 1mg 40 mg 3-24 tablet 00:00: 00 lisinopril 2016-0 No 1mg 40 mg 3-24 tablet 00:00: 00 lisinopril 2016-0 No 1mg 40 mg 3-24 tablet 00:00: 00 lisinopril 2016-0 No 1mg 40 mg 3-24 tablet 00:00: 00 metoprolol 2016-0 No 5mg tartrate 25 3-17 mg tablet 00:00: 00 metoprolol 2016-0 No 5mg tartrate 25 3-17 mg tablet 00:00: 00 metformin 2016-0 No 1mg 500 mg 3-17 tablet 00:00: 00 Norvasc 10 2016-0 No 1mg mg tablet 3-17 00:00: 00 lisinopril 2016-0 No 1mg 20 mg 3-17 tablet 00:00: 00 metformin 2016-0 No 1mg 500 mg 3-17 tablet 00:00: 00 Norvasc 10 2016-0 No 1mg mg tablet 3-17 00:00: 00 lisinopril 2016-0 No 1mg 20 mg 3-17 tablet 00:00: 00 metoprolol 2016-0 No 5mg tartrate 25 3-17 mg tablet 00:00: 00 metformin 2016-0 No 1mg 500 mg 3-17 tablet 00:00: 00 Norvasc 10 2015-0 No 1mg mg tablet 3-17 00:00: 00 lisinopril 2016-0 No 1mg 20 mg 3-17 tablet 00:00: 00 metoprolol 2016-0 No 5mg tartrate 25 3-17 mg tablet 00:00: 00 metformin 2016-0 No 1mg 500 mg 3-17 tablet 00:00: 00 Norvasc 10 2016-0 No 1mg mg tablet 3-17 00:00: 00 lisinopril 2016-0 No 1mg 20 mg 3-17 tablet 00:00: 00 lisinopril 2016-0 No 1mg 10 mg 2-29 tablet 00:00: 00 lisinopril 2016-0 No 1mg 10 mg 2-29 tablet 00:00: 00 lisinopril 2016-0 No 1mg 10 mg 2-29 tablet 00:00: 00 lisinopril 2016-0 No 1mg 10 mg 2-29 tablet 00:00: 00 lisinopril 2016-0 No 1mg 10 mg 1-21 tablet 00:00: 00 lisinopril 2016-0 No 1mg 10 mg 1-21 tablet 00:00: 00 lisinopril 2015-0 No 1mg 10 mg 1-21 tablet 00:00: 00 lisinopril 2015-0 No 1mg 10 mg 1-21 tablet 00:00: 00 lisinopril 2014-1 No 1mg 10 mg 2-16 tablet 00:00: 00 lisinopril 2014-1 No 1mg 10 mg 2-16 tablet 00:00: 00 lisinopril 2014-1 No 1mg 10 mg 2-16 tablet 00:00: 00 lisinopril 2014-1 No 1mg 10 mg 2-16 tablet 00:00: 00 citalopram 2014-1 No 1mg 40 mg 2-10 tablet 00:00: 00 risperidone 2014-1 No 2mg 4 mg tablet 2-10 00:00: 00 propranolol 2014-1 No 1mg 40 mg 2-10 tablet 00:00: 00 Tegretol 2014-11 No 1mg 200 mg 2-10 tablet 00:00: 00 citalopram 2014-11 No 1mg 40 mg 2-10 tablet 00:00: 00 risperidone 2014-11 No 2mg 4 mg tablet 2-10 00:00: 00 propranolol 2014- No 1mg 40 mg 2-10 tablet 00:00: 00 Tegretol 2014-11 No 1mg 200 mg 2-10 tablet 00:00: 00 citalopram 2014-11 No 1mg 40 mg 2-10 tablet 00:00: 00 citalopram 2014-11 No 1mg 40 mg 2-10 tablet 00:00: 00 risperidone 2014- No 2mg 4 mg tablet 2-10 00:00: 00 propranolol 2014- No 1mg 40 mg 2-10 tablet 00:00: 00 Tegretol 2014-11 No 1mg 200 mg 2-10 tablet 00:00: 00 risperidone 2014-11 No 2mg 4 mg tablet 2-10 00:00: 00 propranolol 2014-11 No 1mg 40 mg 2-10 tablet 00:00: 00 Tegretol 2014-11 No 1mg 200 mg 2-10 tablet 00:00: 00 traZODone 2013-0 Yes [id number] 150mg Take 1 Tab [facility] (DESYREL) 8-06 by mouth ity of 150 mg 00:00: at [place] tablet 00 bedtime. [facility] traZODone 2013-0 Yes [id number] 150mg Take 1 Tab [facility] (DESYREL) 8-06 by mouth ity of 150 mg 00:00: at [place] tablet 00 bedtime. [facility] traZODone 2013-0 Yes [id number] 150mg Take 1 Tab [facility] (DESYREL) 8-06 by mouth ity of 150 mg 00:00: at [place] tablet 00 bedtime. [facility] traZODone 2013-0 Yes [id number] 150mg Take 1 Tab [facility] (DESYREL) 8-06 by mouth ity of 150 mg 00:00: at [place] tablet 00 bedtime. [facility] traZODone 2013-0 Yes [id number] 150mg Take 1 Tab [facility] (DESYREL) 8-06 by mouth ity of 150 mg 00:00: at [place] tablet 00 bedtime. [facility] traZODone 2013-0 Yes [id number] 150mg Take 1 Tab [facility] (DESYREL) 8-06 by mouth ity of 150 mg 00:00: at [place] tablet 00 bedtime. [facility] traZODone 2013-0 Yes [id number] 150mg Take 1 Tab [facility] (DESYREL) 8-06 by mouth ity of 150 mg 00:00: at [place] tablet 00 bedtime. [facility] traZODone 2013-0 Yes [id number] 150mg Take 1 Tab [facility] (DESYREL) 8-06 by mouth ity of 150 mg 00:00: at [place] tablet 00 bedtime. [facility] traZODone 2013-0 Yes [id number] 150mg Take 1 Tab [facility] (DESYREL) 8-06 by mouth ity of 150 mg 00:00: at [place] tablet 00 bedtime. [facility] traZODone 2013-0 Yes [id number] 150mg Take 1 Tab [facility] (DESYREL) 8-06 by mouth ity of 150 mg 00:00: at [place] tablet 00 bedtime. [facility] traZODone 2013-0 Yes [id number] 150mg Take 1 Tab [facility] (DESYREL) 8-06 by mouth ity of 150 mg 00:00: at [place] tablet 00 bedtime. [facility] traZODone 2013-0 Yes [id number] 150mg Take 1 Tab [facility] (DESYREL) 8-06 by mouth ity of 150 mg 00:00: at [place] tablet 00 bedtime. [facility] traZODone 2013-0 Yes [id number] 150mg Take 1 Tab [facility] (DESYREL) 8-06 by mouth ity of 150 mg 00:00: at [place] tablet 00 bedtime. [facility] traZODone 2013-0 Yes [id number] 150mg Take 1 Tab [facility] (DESYREL) 8-06 by mouth ity of 150 mg 00:00: at [place] tablet 00 bedtime. [facility] traZODone 2013-0 Yes [id number] 150mg Take 1 Tab [facility] (DESYREL) 8-06 by mouth ity of 150 mg 00:00: at [place] tablet 00 bedtime. [facility] traZODone 2013-0 Yes [id number] 150mg Take 1 Tab [facility] (DESYREL) 8-06 by mouth ity of 150 mg 00:00: at [place] tablet 00 bedtime. [facility] traZODone 2013-0 Yes [id number] 150mg Take 1 Tab [facility] (DESYREL) 8-06 by mouth ity of 150 mg 00:00: at [place] tablet 00 bedtime. [facility] traZODone Yes [id number] 150mg Take 1 Tab [facility] (DESYREL) 8-06 by mouth ity of 150 mg 00:00: at [place] tablet 00 bedtime. [facility] traZODone Yes [id number] 150mg Take 1 Tab [facility] (DESYREL) 8-06 by mouth ity of 150 mg 00:00: at [place] tablet 00 bedtime. [facility] traZODone Yes [id number] 150mg Take 1 Tab [facility] (DESYREL) 8-06 by mouth ity of 150 mg 00:00: at [place] tablet 00 bedtime. [facility] traZODone Yes [id number] 150mg Take 1 Tab [facility] (DESYREL) 8-06 by mouth ity of 150 mg 00:00: at [place] tablet 00 bedtime. [facility] traZODone Yes [id number] 150mg Take 1 Tab [facility] (DESYREL) 8-06 by mouth ity of 150 mg 00:00: at [place] tablet 00 bedtime. [facility] benztropine Yes [id number] 2mg Take 1 Tab [facility] (COGENTIN) 7-09 by mouth ity o f 2 mg tablet 00:00: at [place] 00 bedtime. [facility] citalopram Yes [id number] 40mg Take 1 Tab [facility] (CELEXA) 40 7-09 by mouth ity of mg tablet 00:00: daily. [facility] benztropine Yes [id number] 2mg Take 1 Tab [facility] (COGENTIN) 7-09 by mouth ity o f 2 mg tablet 00:00: at [place] 00 bedtime. [facility] citalopram Yes [id number] 40mg Take 1 Tab [facility] (CELEXA) 40 7-09 by mouth ity of mg tablet 00:00: daily. [facility] benztropine Yes [id number] 2mg Take 1 Tab [facility] (COGENTIN) 7-09 by mouth ity o f 2 mg tablet 00:00: at [place] 00 bedtime. [facility] citalopram Yes [id number] 40mg Take 1 Tab [facility] (CELEXA) 40 7-09 by mouth ity of mg tablet 00:00: daily. [facility] benztropine Yes [id number] 2mg Take 1 Tab [facility] (COGENTIN) 7-09 by mouth ity o f 2 mg tablet 00:00: at [place] [address] bedtime. [facility] citalopram Yes [id number] 40mg Take 1 Tab [facility] (CELEXA) 40 7-09 by mouth ity of mg tablet 00:00: daily. [facility] benztropine Yes [id number] 2mg Take 1 Tab [facility] (COGENTIN) 7-09 by mouth ity o f 2 mg tablet 00:00: at [place] [address] bedtime. [facility] citalopram Yes [id number] 40mg Take 1 Tab [facility] (CELEXA) 40 7-09 by mouth ity of mg tablet 00:00: daily. [facility] benztropine Yes [id number] 2mg Take 1 Tab [facility] (COGENTIN) 7-09 by mouth ity o f 2 mg tablet 00:00: at [place] [address] bedtime. [facility] citalopram Yes [id number] 40mg Take 1 Tab [facility] (CELEXA) 40 7-09 by mouth ity of mg tablet 00:00: daily. [facility] benztropine Yes [id number] 2mg Take 1 Tab [facility] (COGENTIN) 7-09 by mouth ity o f 2 mg tablet 00:00: at [place] [address] bedtime. [facility] citalopram Yes [id number] 40mg Take 1 Tab [facility] (CELEXA) 40 7-09 by mouth ity of mg tablet 00:00: daily. [facility] benztropine Yes [id number] 2mg Take 1 Tab [facility] (COGENTIN) 7-09 by mouth ity o f 2 mg tablet 00:00: at [place] [address] bedtime. [facility] citalopram Yes [id number] 40mg Take 1 Tab [facility] (CELEXA) 40 7-09 by mouth ity of mg tablet 00:00: daily. [facility] benztropine Yes [id number] 2mg Take 1 Tab [facility] (COGENTIN) 7-09 by mouth ity o f 2 mg tablet 00:00: at [place] 00 bedtime. [facility] citalopram Yes [id number] 40mg Take 1 Tab [facility] (CELEXA) 40 7-09 by mouth ity of mg tablet 00:00: daily. [facility] benztropine Yes [id number] 2mg Take 1 Tab [facility] (COGENTIN) 7-09 by mouth ity o f 2 mg tablet 00:00: at [place] 00 bedtime. [facility] citalopram Yes [id number] 40mg Take 1 Tab [facility] (CELEXA) 40 7-09 by mouth ity of mg tablet 00:00: daily. [facility] benztropine Yes [id number] 2mg Take 1 Tab [facility] (COGENTIN) 7-09 by mouth ity o f 2 mg tablet 00:00: at [place] [address] bedtime. [facility] citalopram Yes [id number] 40mg Take 1 Tab [facility] (CELEXA) 40 7-09 by mouth ity of mg tablet 00:00: daily. [facility] benztropine Yes [id number] 2mg Take 1 Tab [facility] (COGENTIN) 7-09 by mouth ity o f 2 mg tablet 00:00: at [place] [address] bedtime. [facility] citalopram Yes [id number] 40mg Take 1 Tab [facility] (CELEXA) 40 7-09 by mouth ity of mg tablet 00:00: daily. [facility] benztropine Yes [id number] 2mg Take 1 Tab [facility] (COGENTIN) 7-09 by mouth ity o f 2 mg tablet 00:00: at [place] 00 bedtime. [facility] citalopram Yes [id number] 40mg Take 1 Tab [facility] (CELEXA) 40 7-09 by mouth ity of mg tablet 00:00: daily. [facility] [place] benztropine Yes [id number] 2mg Take 1 Tab [facility] (COGENTIN) 7-09 by mouth ity o f 2 mg tablet 00:00: at [place] [address] bedtime. [facility] citalopram Yes [id number] 40mg Take 1 Tab [facility] (CELEXA) 40 7-09 by mouth ity of mg tablet 00:00: daily. [facility] benztropine Yes [id number] 2mg Take 1 Tab [facility] (COGENTIN) 7-09 by mouth ity o f 2 mg tablet 00:00: at [place] [address] bedtime. [facility] citalopram Yes [id number] 40mg Take 1 Tab [facility] (CELEXA) 40 7-09 by mouth ity of mg tablet 00:00: daily. [facility] benztropine Yes [id number] 2mg Take 1 Tab [facility] (COGENTIN) 7-09 by mouth ity o f 2 mg tablet 00:00: at [place] [address] bedtime. [facility] citalopram Yes [id number] 40mg Take 1 Tab [facility] (CELEXA) 40 7-09 by mouth ity of mg tablet 00:00: daily. [facility] benztropine Yes [id number] 2mg Take 1 Tab [facility] (COGENTIN) 7-09 by mouth ity o f 2 mg tablet 00:00: at [place] [address] bedtime. [facility] citalopram Yes [id number] 40mg Take 1 Tab [facility] (CELEXA) 40 7-09 by mouth ity of mg tablet 00:00: daily. [facility] benztropine Yes [id number] 2mg Take 1 Tab [facility] (COGENTIN) 7-09 by mouth ity o f 2 mg tablet 00:00: at [place] [address] bedtime. [facility] citalopram Yes [id number] 40mg Take 1 Tab [facility] (CELEXA) 40 7-09 by mouth ity of mg tablet 00:00: daily. [facility] benztropine Yes [id number] 2mg Take 1 Tab [facility] (COGENTIN) 7-09 by mouth ity o f 2 mg tablet 00:00: at [place] [address] bedtime. [facility] citalopram Yes [id number] 40mg Take 1 Tab [facility] (CELEXA) 40 7-09 by mouth ity of mg tablet 00:00: daily. [facility] benztropine Yes [id number] 2mg Take 1 Tab [facility] (COGENTIN) 7-09 by mouth ity o f 2 mg tablet 00:00: at [place] 00 bedtime. [facility] citalopram Yes [id number] 40mg Take 1 Tab [facility] (CELEXA) 40 7-09 by mouth ity of mg tablet 00:00: daily. [facility] benztropine Yes [id number] 2mg Take 1 Tab [facility] (COGENTIN) 7-09 by mouth ity o f 2 mg tablet 00:00: at [place] 00 bedtime. [facility] citalopram Yes [id number] 40mg Take 1 Tab [facility] (CELEXA) 40 7-09 by mouth ity of mg tablet 00:00: daily. [facility] benztropine Yes [id number] 2mg Take 1 Tab [facility] (COGENTIN) 7-09 by mouth ity o f 2 mg tablet 00:00: at [place] 00 bedtime. [facility] citalopram Yes [id number] 40mg Take 1 Tab [facility] (CELEXA) 40 7-09 by mouth ity of mg tablet 00:00: daily. [facility] pravastatin Yes [id number] 40mg Take 1 Tab [facility] (PRAVACHOL) 6-11 by mouth ity of 40 mg 00:00: at [place] tablet 00 bedtime. [facility] pravastatin 2013- Yes [id number] 40mg Take 1 Tab [facility] (PRAVACHOL) 6-11 by mouth ity of 40 mg 00:00: at [place] tablet 00 bedtime. [facility] pravastatin 2013-0 Yes [id number] 40mg Take 1 Tab [facility] (PRAVACHOL) 6-11 by mouth ity of 40 mg 00:00: at [place] tablet 00 bedtime. [facility] pravastatin 2013-0 Yes [id number] 40mg Take 1 Tab [facility] (PRAVACHOL) 6-11 by mouth ity of 40 mg 00:00: at [place] tablet 00 bedtime. [facility] pravastatin 2013-0 Yes [id number] 40mg Take 1 Tab [facility] (PRAVACHOL) 6-11 by mouth ity of 40 mg 00:00: at [place] tablet 00 bedtime. [facility] pravastatin 2013-0 Yes [id number] 40mg Take 1 Tab [facility] (PRAVACHOL) 6-11 by mouth ity of 40 mg 00:00: at [place] tablet 00 bedtime. [facility] pravastatin 2013-0 Yes [id number] 40mg Take 1 Tab [facility] (PRAVACHOL) 6-11 by mouth ity of 40 mg 00:00: at [place] tablet 00 bedtime. [facility] pravastatin 2013-0 Yes [id number] 40mg Take 1 Tab [facility] (PRAVACHOL) 6-11 by mouth ity of 40 mg 00:00: at [place] tablet 00 bedtime. [facility] pravastatin 2013-0 Yes [id number] 40mg Take 1 Tab [facility] (PRAVACHOL) 6-11 by mouth ity of 40 mg 00:00: at [place] tablet 00 bedtime. [facility] pravastatin 2013- Yes [id number] 40mg Take 1 Tab [facility] (PRAVACHOL) 6-11 by mouth ity of 40 mg 00:00: at [place] tablet 00 bedtime. [facility] pravastatin 2013-0 Yes [id number] 40mg Take 1 Tab [facility] (PRAVACHOL) 6-11 by mouth ity of 40 mg 00:00: at [place] tablet 00 bedtime. [facility] pravastatin 2013-0 Yes [id number] 40mg Take 1 Tab [facility] (PRAVACHOL) 6-11 by mouth ity of 40 mg 00:00: at [place] tablet 00 bedtime. [facility] pravastatin 2013-0 Yes [id number] 40mg Take 1 Tab [facility] (PRAVACHOL) 6-11 by mouth ity of 40 mg 00:00: at [place] tablet 00 bedtime. [facility] pravastatin 2013-0 Yes [id number] 40mg Take 1 Tab [facility] (PRAVACHOL) 6-11 by mouth ity of 40 mg 00:00: at [place] tablet 00 bedtime. [facility] pravastatin 2013-0 Yes [id number] 40mg Take 1 Tab [facility] (PRAVACHOL) 6-11 by mouth ity of 40 mg 00:00: at [place] tablet 00 bedtime. [facility] pravastatin 2013-0 Yes [id number] 40mg Take 1 Tab [facility] (PRAVACHOL) 6-11 by mouth ity of 40 mg 00:00: at [place] tablet 00 bedtime. [facility] pravastatin 2013-0 Yes [id number] 40mg Take 1 Tab [facility] (PRAVACHOL) 6-11 by mouth ity of 40 mg 00:00: at [place] tablet 00 bedtime. [facility] pravastatin 2013-0 Yes [id number] 40mg Take 1 Tab [facility] (PRAVACHOL) 6-11 by mouth ity of 40 mg 00:00: at [place] tablet 00 bedtime. [facility] pravastatin Yes [id number] 40mg Take 1 Tab [facility] (PRAVACHOL) 6-11 by mouth ity of 40 mg 00:00: at [place] tablet 00 bedtime. [facility] pravastatin Yes [id number] 40mg Take 1 Tab [facility] (PRAVACHOL) 6-11 by mouth ity of 40 mg 00:00: at [place] tablet 00 bedtime. [facility] pravastatin Yes [id number] 40mg Take 1 Tab [facility] (PRAVACHOL) 6-11 by mouth ity of 40 mg 00:00: at [place] tablet 00 bedtime. [facility] pravastatin Yes [id number] 40mg Take 1 Tab [facility] (PRAVACHOL) 6-11 by mouth ity of 40 mg 00:00: at [place] tablet 00 bedtime. [facility] Immunizations Ordered Filled Immunization Date Status Comments [facility] Immunization Name Name Lon COVID-19 2022-05-22 Completed Vaccine 00:00:00 Jakea COVID-19 2022-05-22 Completed Vaccine 00:00:00 Jakea COVID-19 2022-05-22 Completed Vaccine 00:00:00 Jakea COVID-19 2022-05-22 Completed Vaccine 00:00:00 pneumococcal 2022-01-08 Completed polysacchar 00:00:00 Tdap 2022-01-08 Completed 00:00:00 pneumococcal 2022-01-08 Completed polysacchar 00:00:00 Tdap 2022-01-08 Completed 00:00:00 pneumococcal 2022-01-08 Completed polysacchar 00:00:00 Tdap 2022-01-08 Completed 00:00:00 pneumococcal 2022-01-08 Completed polysacchar 00:00:00 Tdap 2022-01-08 Completed 00:00:00 influenza, 2022-01-07 Completed injectable 00:00:00 influenza, 2022-01-07 Completed injectable 00:00:00 influenza, 2022-01-07 Completed injectable 00:00:00 influenza, 2022-01-07 Completed injectable 00:00:00 Moderna COVID-19 2021-08-07 Completed Vaccine 00:00:00 Moderna COVID-19 2021-08-07 Completed Vaccine 00:00:00 Moderna COVID-19 2021-08-07 Completed Vaccine 00:00:00 Moderna COVID-19 2021-08-07 Completed Vaccine 00:00:00 Moderna COVID-19 2021-02-26 Completed Vaccine 00:00:00 Moderna COVID-19 2021-02-26 Completed Vaccine 00:00:00 Moderna COVID-19 2021-02-26 Completed Vaccine 00:00:00 Moderna COVID-19 2021-02-26 Completed Vaccine 00:00:00 Moderna COVID-19 2020-12-26 Completed Vaccine 00:00:00 Moderna COVID-19 2020-12-26 Completed Vaccine 00:00:00 Moderna COVID-19 2020-12-26 Completed Vaccine 00:00:00 Moderna COVID-19 2020-12-26 Completed Vaccine 00:00:00 Influenza Virus 2018-08-11 Completed Universit [facility] of Vaccine Quad .5 mL 00:00:00 [place] [facility] 6+ [facility] Influenza Virus 2018-08-11 Completed Universit y of Vaccine Quad .5 mL 00:00:00 [place] [facility] 6+ MO [facility] Influenza Virus 2018-08-11 Completed Universit y of Vaccine Quad .5 mL 00:00:00 [place] [facility] IM 6+ MO [facility] Influenza Virus 2018-08-11 Completed Universit y of Vaccine Quad .5 mL 00:00:00 [place] [facility] IM 6+ MO Branch Influenza Virus 2018-08-11 Completed Universit y of Vaccine Quad .5 mL 00:00:00 [place] [facility] IM 6+ MO Branch Influenza Virus 2018-08-11 Completed Universit y of Vaccine Quad .5 mL 00:00:00 [place] [facility] IM 6+ MO Branch Influenza Virus 2018-08-11 Completed Universit y of Vaccine Quad .5 mL 00:00:00 [place] [facility] IM 6+ MO Branch Influenza Virus 2018-08-11 Completed Universit y of Vaccine Quad .5 mL 00:00:00 [place] [facility] IM 6+ MO Branch Influenza Virus 2018-08-11 Completed Universit y of Vaccine Quad .5 mL 00:00:00 [place] [facility] IM 6+ MO Branch Influenza Virus 2018-08-11 Completed Universit y of Vaccine Quad .5 mL 00:00:00 [place] [facility] IM 6+ MO Branch Influenza Virus 2018-08-11 Completed Universit y of Vaccine Quad .5 mL 00:00:00 [place] [facility] 6+ MO Branch Influenza Virus 2018-08-11 Completed Universit y of Vaccine Quad .5 mL 00:00:00 [place] [facility] IM 6+ MO Branch Influenza Virus 2018-08-11 Completed Universit y of Vaccine Quad .5 mL 00:00:00 [place] [facility] 6+ MO Branch Influenza Virus 2018-08-11 Completed Universit y of Vaccine Quad .5 mL 00:00:00 [place] [facility] 6+ [facility] Branch Influenza Virus 2018-08-11 Completed Universit y of Vaccine Quad .5 mL 00:00:00 [place] [facility] 6+ MO Branch Influenza Virus 2018-08-11 Completed Universit y of Vaccine Quad .5 mL 00:00:00 [place] [facility] 6+ MO Branch Influenza Virus 2018-08-11 Completed Universit y of Vaccine Quad .5 mL 00:00:00 [facility] 6+ MO Branch Influenza Virus 2018-08-11 Completed Universit y of Vaccine Quad .5 mL 00:00:00 [facility] 6+ MO Branch Influenza Virus 2018-08-11 Completed Universit y of Vaccine Quad .5 mL 00:00:00 [facility] 6+ MO Branch Influenza Virus 2018-08-11 Completed Universit y of Vaccine Quad .5 mL 00:00:00 [facility] 6+ MO Branch Influenza Virus 2018-08-11 Completed Universit y of Vaccine Quad .5 mL 00:00:00 [facility] 6+ MO Branch Influenza Virus 2018-08-11 Completed Universit y of Vaccine Quad .5 mL 00:00:00 [facility] 6+ MO Branch Influenza Virus 2017-10-26 Completed Universit y of Vaccine 00:00:00 [facility] Pneumococcal 2017-10-26 Completed University o f Polysaccharide, 00:00:00 [place] [facility] PPSV23 (PNEUMOVAX) Branch Influenza Virus 2017-10-26 Completed Universit y of Vaccine 00:00:00 [facility] Pneumococcal 2017-10-26 Completed University o f Polysaccharide, 00:00:00 [place] [facility] PPSV23 (PNEUMOVAX) Branch Influenza Virus 2017-10-26 Completed Universit y of Vaccine 00:00:00 [facility] Pneumococcal 2017-10-26 Completed University o f Polysaccharide, 00:00:00 [place] [facility] PPSV23 (PNEUMOVAX) Branch Influenza Virus 2017-10-26 Completed Universit y of Vaccine 00:00:00 [facility] Pneumococcal 2017-10-26 Completed University o f Polysaccharide, 00:00:00 [place] [facility] PPSV23 (PNEUMOVAX) Branch Influenza Virus 2017-10-26 Completed Universit y of Vaccine 00:00:00 [facility] Pneumococcal 2017-10-26 Completed University o f Polysaccharide, 00:00:00 [place] [facility] PPSV23 (PNEUMOVAX) Branch Influenza Virus 2017-10-26 Completed Universit y of Vaccine 00:00:00 [facility] Pneumococcal 2017-10-26 Completed University o f Polysaccharide, 00:00:00 [place] [facility] PPSV23 (PNEUMOVAX) Branch Influenza Virus 2017-10-26 Completed Universit y of Vaccine 00:00:00 [facility] Pneumococcal 2017-10-26 Completed University o f Polysaccharide, 00:00:00 [place] [facility] PPSV23 (PNEUMOVAX) Branch Influenza Virus 2017-10-26 Completed Universit y of Vaccine 00:00:00 [facility] Pneumococcal 2017-10-26 Completed University o f Polysaccharide, 00:00:00 [place] [facility] PPSV23 (PNEUMOVAX) Branch Influenza Virus 2017-10-26 Completed Universit y of Vaccine 00:00:00 [facility] Pneumococcal 2017-10-26 Completed University o f Polysaccharide, 00:00:00 [place] [facility] PPSV23 (PNEUMOVAX) Branch Influenza Virus 2017-10-26 Completed Universit y of Vaccine 00:00:00 [facility] Pneumococcal 2017-10-26 Completed University o f Polysaccharide, 00:00:00 [place] [facility] PPSV23 (PNEUMOVAX) Branch Influenza Virus 2017-10-26 Completed Universit y of Vaccine 00:00:00 [facility] Pneumococcal 2017-10-26 Completed University o f Polysaccharide, 00:00:00 [place] [facility] PPSV23 (PNEUMOVAX) Branch Influenza Virus 2017-10-26 Completed Universit y of Vaccine 00:00:00 [facility] Pneumococcal 2017-10-26 Completed University o f Polysaccharide, 00:00:00 [place] [facility] PPSV23 (PNEUMOVAX) Branch Influenza Virus 2017-10-26 Completed Universit y of Vaccine 00:00:00 [facility] Pneumococcal 2017-10-26 Completed University o f Polysaccharide, 00:00:00 [place] [facility] PPSV23 (PNEUMOVAX) Branch Influenza Virus 2017-10-26 Completed Universit y of Vaccine 00:00:00 [facility] Pneumococcal 2017-10-26 Completed University o f Polysaccharide, 00:00:00 [place] [facility] PPSV23 (PNEUMOVAX) Branch Influenza Virus 2017-10-26 Completed Universit y of Vaccine 00:00:00 [facility] Pneumococcal 2017-10-26 Completed University o f Polysaccharide, 00:00:00 [place] [facility] PPSV23 (PNEUMOVAX) Branch Influenza Virus 2017-10-26 Completed Universit y of Vaccine 00:00:00 [facility] Pneumococcal 2017-10-26 Completed University o f Polysaccharide, 00:00:00 [place] [facility] PPSV23 (PNEUMOVAX) Branch Influenza Virus 2017-10-26 Completed Universit y of Vaccine 00:00:00 [facility] Pneumococcal 2017-10-26 Completed University o f Polysaccharide, 00:00:00 [place] [facility] PPSV23 (PNEUMOVAX) Branch Influenza Virus 2017-10-26 Completed Universit y of Vaccine 00:00:00 [facility] Pneumococcal 2017-10-26 Completed University o f Polysaccharide, 00:00:00 [place] [facility] PPSV23 (PNEUMOVAX) Branch Influenza Virus 2017-10-26 Completed Universit y of Vaccine 00:00:00 [facility] Pneumococcal 2017-10-26 Completed University o f Polysaccharide, 00:00:00 [facility] ical PPSV23 (PNEUMOVAX) Branch Influenza Virus 2017-10-26 Completed Universit y of Vaccine 00:00:00 [facility] Pneumococcal 2017-10-26 Completed University o f Polysaccharide, 00:00:00 [place] [facility] PPSV23 (PNEUMOVAX) Branch Influenza Virus 2017-10-26 Completed Universit y of Vaccine 00:00:00 [facility] Pneumococcal 2017-10-26 Completed University o f Polysaccharide, 00:00:00 [place] [facility] PPSV23 (PNEUMOVAX) Branch Influenza Virus 2017-10-26 Completed [facility] Vaccine 00:00:00 [facility] [facility] Pneumococcal 2017-10-26 Completed University o f Polysaccharide, 00:00:00 [place] [facility] PPSV23 (PNEUMOVAX) [place] Influenza Three-TIV 2016-05-09 Completed [facility] 5[facility] Y[facility] 00:00:00 [facility] Influenza Virus 2016-05-09 Completed Universit y of Vaccine 00:00:00 [facility] Influenza Virus 2016-05-09 Completed Universit y of Vaccine 00:00:00 [facility] Influenza Virus 2016-05-09 Completed Universit y of Vaccine 00:00:00 [facility] Influenza Virus 2016-05-09 Completed Universit y of Vaccine 00:00:00 [facility] Influenza Virus 2016-05-09 Completed Universit y of Vaccine 00:00:00 [facility] Influenza Virus 2016-05-09 Completed Universit y of Vaccine 00:00:00 [facility] Influenza Virus 2016-05-09 Completed Universit y of Vaccine 00:00:00 [facility] Influenza Virus 2016-05-09 Completed Universit y of Vaccine 00:00:00 [facility] Influenza Virus 2016-05-09 Completed Universit y of Vaccine 00:00:00 [facility] Influenza Virus 2016-05-09 Completed Universit y of Vaccine 00:00:00 [facility] Influenza Virus 2016-05-09 Completed Universit y of Vaccine 00:00:00 [facility] Influenza Virus 2016-05-09 Completed Universit y of Vaccine 00:00:00 [facility] Influenza Virus 2016-05-09 Completed Universit y of Vaccine 00:00:00 [facility] Influenza Virus 2016-05-09 Completed Universit y of Vaccine 00:00:00 [facility] Influenza Virus 2016-05-09 Completed Universit y of Vaccine 00:00:00 [facility] Influenza Virus 2016-05-09 Completed Universit y of Vaccine 00:00:00 [facility] Influenza Virus 2016-05-09 Completed Universit y of Vaccine 00:00:00 [facility] Influenza Virus 2016-05-09 Completed Universit y of Vaccine 00:00:00 [facility] Influenza Virus 2016-05-09 Completed Universit y of Vaccine 00:00:00 [facility] Influenza Virus 2016-05-09 Completed Universit y of Vaccine 00:00:00 [facility] Influenza Virus 2016-05-09 Completed Universit y of Vaccine 00:00:00 [facility] Influenza Virus 2016-05-09 Completed Universit y of Vaccine 00:00:00 [facility] Td 2006-11-16 Completed University of 00:00:00 [facility] Td 2006-11-16 Completed University of 00:00:00 [facility] Td 2006-11-16 Completed University of 00:00:00 [facility] Td 2006-11-16 Completed University of 00:00:00 [facility] Td 2006-11-16 Completed University of 00:00:00 [facility] Td 2006-11-16 Completed University of 00:00:00 [facility] Td 2006-11-16 Completed University of 00:00:00 [facility] Td 2006-11-16 Completed University of 00:00:00 [facility] Td 2006-11-16 Completed University of 00:00:00 [facility] Td 2006-11-16 Completed University of 00:00:00 [facility] Td 2006-11-16 Completed University of 00:00:00 [facility] Td 2006-11-16 Completed University of 00:00:00 [facility] Td 2006-11-16 Completed University of 00:00:00 [facility] Td 2006-11-16 Completed University of 00:00:00 [facility] Td 2006-11-16 Completed University of 00:00:00 [facility] Td 2006-11-16 Completed University of 00:00:00 [facility] Td 2006-11-16 Completed University of 00:00:00 [facility] Td 2006-11-16 Completed University of 00:00:00 [facility] Td 2006-11-16 Completed University of 00:00:00 [facility] Td 2006-11-16 Completed University of 00:00:00 [facility] Td 2006-11-16 Completed University of 00:00:00 [facility] Td 2006-11-16 Completed University of 00:00:00 [facility] Vital Signs Vital Name Observation Time Observation Value Comments Source Body temperature 2021-02-01 19:33:00 37.33 [facility] Body height 2021-02-01 19:33:00 165.1 cm Universi ty [facility] Body weight 2021-02-01 19:33:00 90.266 kg Universi ty [facility] BMI 2021-02-01 19:33:00 33.12 kg/m2 Universi ty [facility] Body temperature 2020-11-21 15:37:00 36.39 [facility] Body height 2020-11-21 15:37:00 165.1 cm Universi ty [facility] Body weight 2020-11-21 15:37:00 91.989 kg [facility] BMI 2020-11-21 15:37:00 33.75 kg/m2 [facility] BP Systolic 2022-08-14 09:41:00 138 mm[Hg] BP Diastolic 2022-08-14 09:41:00 78 mm[Hg] Weight Measured 2022-08-14 09:41:00 188.00 pounds Height Measured 2022-08-14 09:41:00 65.00 inches Body Temperature 2022-08-14 09:41:00 97.40 degrees Heart Rate 2022-08-14 09:41:00 117.00 /min Respiratory Rate 2022-08-14 09:41:00 24.00 /min BP Systolic 2022-07-02 09:51:00 153 mm[Hg] BP Diastolic 2022-07-02 09:51:00 96 mm[Hg] Weight Measured 2022-07-02 09:51:00 192.40 pounds Height Measured 2022-07-02 09:51:00 65.00 inches Body Temperature 2022-07-02 09:51:00 97.00 degrees Heart Rate 2022-07-02 09:51:00 113.00 /min Respiratory Rate 2022-07-02 09:51:00 BP Systolic 2022-06-24 11:26:00 140 mm[Hg] BP Diastolic 2022-06-24 11:26:00 77 mm[Hg] Weight Measured 2022-06-24 11:26:00 192.00 pounds Height Measured 2022-06-24 11:26:00 65.00 inches Body Temperature 2022-06-24 11:26:00 97.00 degrees Heart Rate 2022-06-24 11:26:00 104.00 /min Respiratory Rate 2022-06-24 11:26:00 24.00 /min BP Systolic 2022-06-13 09:51:00 150 mm[Hg] BP Diastolic 2022-06-13 09:51:00 95 mm[Hg] Weight Measured 2022-06-13 09:51:00 189.80 pounds Height Measured 2022-06-13 09:51:00 65.00 inches Body Temperature 2022-06-13 09:51:00 98.10 degrees Heart Rate 2022-06-13 09:51:00 70.00 /min Respiratory Rate 2022-06-13 09:51:00 BP Systolic 2022-05-06 15:56:00 BP Diastolic 2022-05-06 15:56:00 Weight Measured 2022-05-06 15:56:00 185.00 pounds Height Measured 2022-05-06 15:56:00 65.00 inches Body Temperature 2022-05-06 15:56:00 Heart Rate 2022-05-06 15:56:00 Respiratory Rate 2022-05-06 15:56:00 BP Systolic 2022-04-21 11:28:00 149 mm[Hg] BP Diastolic 2022-04-21 11:28:00 96 mm[Hg] Weight Measured 2022-04-21 11:28:00 185.00 pounds Height Measured 2022-04-21 11:28:00 65.00 inches Body Temperature 2022-04-21 11:28:00 97.70 degrees Heart Rate 2022-04-21 11:28:00 94.00 /min Respiratory Rate 2022-04-21 11:28:00 BP Systolic 2022-04-05 11:49:00 BP Diastolic 2022-04-05 11:49:00 Weight Measured 2022-04-05 11:49:00 184.20 pounds Height Measured 2022-04-05 11:49:00 65.00 inches Body Temperature 2022-04-05 11:49:00 Heart Rate 2022-04-05 11:49:00 Respiratory Rate 2022-04-05 11:49:00 BP Systolic 2022-03-12 20:47:00 148 mm[Hg] BP Diastolic 2022-03-12 20:47:00 98 mm[Hg] Weight Measured 2022-03-12 20:47:00 186.60 pounds Height Measured 2022-03-12 20:47:00 65.00 inches Body Temperature 2022-03-12 20:47:00 97.00 degrees Heart Rate 2022-03-12 20:47:00 105.00 /min Respiratory Rate 2022-03-12 20:47:00 BP Systolic 2022-03-12 11:02:00 148 mm[Hg] BP Diastolic 2022-03-12 11:02:00 98 mm[Hg] Weight Measured 2022-03-12 11:02:00 186.60 pounds Height Measured 2022-03-12 11:02:00 65.00 inches Body Temperature 2022-03-12 11:02:00 97.00 degrees Heart Rate 2022-03-12 11:02:00 105.00 /min Respiratory Rate 2022-03-12 11:02:00 BP Systolic 2022-03-07 11:25:00 136 mm[Hg] BP Diastolic 2022-03-07 11:25:00 88 mm[Hg] Weight Measured 2022-03-07 11:25:00 185.20 pounds Height Measured 2022-03-07 11:25:00 65.00 inches Body Temperature 2022-03-07 11:25:00 98.10 degrees Heart Rate 2022-03-07 11:25:00 97.00 /min Respiratory Rate 2022-03-07 11:25:00 Weight Measured 2022-02-19 10:34:00 191.10 pounds Height Measured 2022-02-19 10:34:00 65.00 inches Body Temperature 2022-02-19 10:34:00 Heart Rate 2022-02-19 10:34:00 98.00 /min Respiratory Rate 2022-02-19 10:34:00 BP Systolic 2022-02-19 10:34:00 130 mm[Hg] BP Diastolic 2022-02-19 10:34:00 72 mm[Hg] BP Systolic 2022-02-01 10:36:00 152 mm[Hg] BP Diastolic 2022-02-01 10:36:00 88 mm[Hg] Weight Measured 2022-02-01 10:36:00 188.20 pounds Height Measured 2022-02-01 10:36:00 65.00 inches Body Temperature 2022-02-01 10:36:00 98.00 degrees Heart Rate 2022-02-01 10:36:00 86.00 /min Respiratory Rate 2022-02-01 10:36:00 16.00 /min Procedures Procedure Date / Time Performing Clinician Source Performed BI US GUIDED CORE BREAST 2021-10-19 15:54:25 Bryanna Lawrence [facility] BI ULTRASOUND BREAST 2021-09-17 20:49:30 Requisition, Paper [facility] COMPLETE LEFT Medical Branch BI DIAGNOSTIC 2021-09-17 20:06:54 Requisition, Paper [facility] TOMOSYNTHESIS LEFT Medical Branc h ASSIGNMENT OF BENEFITS 2021-09-17 18:57:21 Doctor Unassigned, No [facility] Name Medical Branch ASSIGNMENT OF BENEFITS 2021-08-27 17:40:18 Doctor Unassigned, No [facility] Medical Branch ASSIGNMENT OF BENEFITS 2021-04-03 14:38:13 Doctor Unassigned, No [facility] Medical Branch ASSIGNMENT OF BENEFITS 2021-02-01 18:02:47 Doctor Unassigned, No [facility] Medical Branch REFERRAL- 2020-11-13 06:01:00 Doctor Unassigned, No [facility] REQUEST/RESPONSE Name Medical Branch Plan of Care Planned Activity Planned Date Details Comments Source Goal Plan of Care Note [code = 32747-9] Goal Plan of Care Note [code = 89452-6] Goal Plan of Care Note [code = 20877-4] Goal Plan of Care Note [code = 24355-3] Goal Plan of Care Note [code = 53489-1] Goal Plan of Care Note [code = 79233-7] Goal Plan of Care Note [code = 06985-2] Goal Plan of Care Note [code = 02934-4] Goal Plan of Care Note [code = 87488-3] Goal Plan of Care Note [code = 03826-9] Goal Plan of Care Note [code = 05818-5] Goal Plan of Care Note [code = 86909-0] Goal Plan of Care Note [code = 09429-3] Goal Plan of Care Note [code = 30267-5] Goal Plan of Care Note [code = 98207-6] Goal Plan of Care Note [code = 44310-4] Goal Plan of Care Note [code = 61251-3] Goal Plan of Care Note [code = 41010-2] Goal Plan of Care Note [code = 52660-8] Goal Plan of Care Note [code = 01258-2] Goal Plan of Care Note [code = 33781-1] Goal Plan of Care Note [code = 34220-3] Goal Plan of Care Note [code = 51889-7] Goal Plan of Care Note [code = 64164-1] Goal Plan of Care Note [code = 74081-9] Goal Plan of Care Note [code = 21813-8] Goal Plan of Care Note [code = 11928-2] Goal Plan of Care Note [code = 81571-4] Goal Plan of Care Note [code = 16943-1] Goal Plan of Care Note [code = 04295-7] Goal Plan of Care Note [code = 88477-5] Goal Plan of Care Note [code = 42543-0] Goal Plan of Care Note [code = 94446-6] Goal Plan of Care Note [code = 22691-6] Goal Plan of Care Note [code = 18717-3] Goal Plan of Care Note [code = 32407-9] Goal Plan of Care Note [code = 93130-7] Goal Plan of Care Note [code = 91609-4] Goal Plan of Care Note [code = 02519-7] Goal Plan of Care Note [code = 92396-1] Goal Plan of Care Note [code = 33123-5] Goal Plan of Care Note [code = 04335-8] Goal Plan of Care Note [code = 72403-3] Goal Plan of Care Note [code = 69298-2] Goal Plan of Care Note [code = 47900-8] Goal Plan of Care Note [code = 52232-1] Goal Plan of Care Note [code = 50523-0] Goal Plan of Care Note [code = 17126-8] Goal Plan of Care Note [code = 41310-1] Goal Plan of Care Note [code = 93276-1] Goal Plan of Care Note [code = 39209-6] Goal Plan of Care Note [code = 79231-9] Goal Plan of Care Note [code = 36241-0] Goal Plan of Care Note [code = 11479-2] Goal Plan of Care Note [code = 91385-9] Goal Plan of Care Note [code = 54135-0] Goal Plan of Care Note [code = 47356-8] Goal Plan of Care Note [code = 41169-1] Goal Plan of Care Note [code = 99583-6] Goal Plan of Care Note [code = 36501-0] Goal Plan of Care Note [code = 93993-0] Goal Plan of Care Note [code = 76062-9] Goal Plan of Care Note [code = 74590-4] Goal Plan of Care Note [code = 07896-6] Goal Plan of Care Note [code = 49115-5] Goal Plan of Care Note [code = 28751-4] Goal Plan of Care Note [code = 67613-2] Goal Plan of Care Note [code = 99496-6] Goal Plan of Care Note [code = 84772-2] Goal Plan of Care Note [code = 31399-0] Goal Plan of Care Note [code = 20113-4] Goal Plan of Care Note [code = 32767-4] Goal Plan of Care Note [code = 39977-9] Goal Plan of Care Note [code = 65674-4] Goal Plan of Care Note [code = 91758-1] Goal Plan of Care Note [code = 03607-1] Goal Plan of Care Note [code = 19086-3] Goal Plan of Care Note [code = 07241-2] Goal Plan of Care Note [code = 33394-4] Goal Plan of Care Note [code = 51258-1] Goal Plan of Care Note [code = 93312-7] Goal Plan of Care Note [code = 71513-9] Goal Plan of Care Note [code = 33447-9] Goal Plan of Care Note [code = 39534-7] Goal Plan of Care Note [code = 27990-6] Goal Plan of Care Note [code = 49818-6] Goal Plan of Care Note [code = 76772-9] Goal Plan of Care Note [code = 50806-6] Goal Plan of Care Note [code = 92435-3] Goal Plan of Care Note [code = 49219-8] Goal Plan of Care Note [code = 60064-9] Goal Plan of Care Note [code = 98678-7] Goal Plan of Care Note [code = 67908-2] Goal Plan of Care Note [code = 10859-7] Goal Plan of Care Note [code = 07679-4] Goal Plan of Care Note [code = 45043-2] Goal Plan of Care Note [code = 40473-5] Goal Plan of Care Note [code = 11057-6] Goal Plan of Care Note [code = 56391-6] Goal Plan of Care Note [code = 67601-0] Goal Plan of Care Note [code = 16621-2] Goal Plan of Care Note [code = 84884-4] Goal Plan of Care Note [code = 05733-6] Goal Plan of Care Note [code = 81388-5] Goal Plan of Care Note [code = 48334-3] Goal Plan of Care Note [code = 73491-7] Goal Plan of Care Note [code = 93140-2] Goal Plan of Care Note [code = 27005-7] Goal Plan of Care Note [code = 83095-7] Goal Plan of Care Note [code = 23989-0] Goal Plan of Care Note [code = 40994-5] Goal Plan of Care Note [code = 04426-5] Goal Plan of Care Note [code = 47711-7] Goal Plan of Care Note [code = 79508-2] Goal Plan of Care Note [code = 93878-4] Goal Plan of Care Note [code = 41269-1] Goal Plan of Care Note [code = 33301-6] Goal Plan of Care Note [code = 73004-1] Goal Plan of Care Note [code = 47811-8] Goal Plan of Care Note [code = 54233-4] Goal Plan of Care Note [code = 01415-3] Goal Plan of Care Note [code = 62731-8] Goal Plan of Care Note [code = 47369-6] Goal Plan of Care Note [code = 45502-8] Goal Plan of Care Note [code = 92166-6] Goal Plan of Care Note [code = 54262-0] Goal Plan of Care Note [code = 62111-1] Goal Plan of Care Note [code = 88994-9] Goal Plan of Care Note [code = 33335-2] Goal Plan of Care Note [code = 98603-9] Goal Plan of Care Note [code = 76869-6] Goal Plan of Care Note [code = 20851-8] Goal Plan of Care Note [code = 42116-4] Goal Plan of Care Note [code = 61592-8] Goal Plan of Care Note [code = 79247-4] Goal Plan of Care Note [code = 97040-0] Goal Plan of Care Note [code = 32384-3] Goal Plan of Care Note [code = 12726-8] Goal Plan of Care Note [code = 90820-2] Goal Plan of Care Note [code = 13410-3] Goal Plan of Care Note [code = 77826-9] Goal Plan of Care Note [code = 31868-8] Goal Plan of Care Note [code = 19648-3] Goal Plan of Care Note [code = 30092-9] Goal Plan of Care Note [code = 28309-0] Goal Plan of Care Note [code = 08430-9] Goal Plan of Care Note [code = 83643-4] Goal Plan of Care Note [code = 42905-6] Goal Plan of Care Note [code = 67673-1] Goal Plan of Care Note [code = 77241-4] Goal Plan of Care Note [code = 91597-8] Goal Plan of Care Note [code = 51497-0] Goal Plan of Care Note [code = 39677-5] Goal Plan of Care Note [code = 53353-8] Goal Plan of Care Note [code = 99560-3] Goal Plan of Care Note [code = 48003-5] Goal Plan of Care Note [code = 47684-7] Goal Plan of Care Note [code = 77497-7] Goal Plan of Care Note [code = 70838-5] Goal Plan of Care Note [code = 56911-8] Goal Plan of Care Note [code = 83128-4] Goal Plan of Care Note [code = 11072-4] Goal Plan of Care Note [code = 19156-5] Goal Plan of Care Note [code = 02619-0] Goal Plan of Care Note [code = 29343-2] Goal Plan of Care Note [code = 81976-2] Goal Plan of Care Note [code = 45162-5] Goal Plan of Care Note [code = 87907-0] Goal Plan of Care Note [code = 54270-9] Goal Plan of Care Note [code = 00417-1] Goal Plan of Care Note [code = 17806-0] Goal Plan of Care Note [code = 42176-4] Goal Plan of Care Note [code = 79846-0] Goal Plan of Care Note [code = 90765-2] Goal Plan of Care Note [code = 35240-3] Goal Plan of Care Note [code = 93847-7] Goal Plan of Care Note [code = 31252-1] Goal Plan of Care Note [code = 38632-9] Goal Plan of Care Note [code = 91673-6] Goal Plan of Care Note [code = 77659-7] Goal Plan of Care Note [code = 36778-6] Goal Plan of Care Note [code = 58173-0] Goal Plan of Care Note [code = 02350-2] Goal Plan of Care Note [code = 16782-7] Goal Plan of Care Note [code = 50127-4] Goal Plan of Care Note [code = 47700-6] Goal Plan of Care Note [code = 00396-7] Goal Plan of Care Note [code = 55040-1] Goal Plan of Care Note [code = 79582-2] Goal Plan of Care Note [code = 14288-2] Goal Plan of Care Note [code = 07212-0] Goal Plan of Care Note [code = 42334-5] Goal Plan of Care Note [code = 14438-7] Goal Plan of Care Note [code = 79256-3] Goal Plan of Care Note [code = 32392-8] Goal Plan of Care Note [code = 09066-2] Goal Plan of Care Note [code = 62568-2] Goal Plan of Care Note [code = 73657-8] Goal Plan of Care Note [code = 23002-4] Goal Plan of Care Note [code = 62619-1] Goal Plan of Care Note [code = 89822-7] Goal Plan of Care Note [code = 08990-5] Goal Plan of Care Note [code = 75629-2] Goal Plan of Care Note [code = 27348-3] Goal Plan of Care Note [code = 34457-7] Goal Plan of Care Note [code = 27933-4] Goal Plan of Care Note [code = 54190-6] Goal Plan of Care Note [code = 55491-2] Goal Plan of Care Note [code = 45326-9] Goal Plan of Care Note [code = 05653-3] Goal Plan of Care Note [code = 03821-3] Goal Plan of Care Note [code = 56836-7] Goal Plan of Care Note [code = 03191-0] Goal Plan of Care Note [code = 55732-2] Goal Plan of Care Note [code = 82684-5] Goal Plan of Care Note [code = 45395-8] Goal Plan of Care Note [code = 07970-3] Goal Plan of Care Note [code = 70560-7] Encounters Start End Encounter Admission Attending Care Care Encounter Source Date/Time Date/Time Type Type Clinicians Facility Department ID 2022-08-14 2022-08-14 Outpatient [id number] [id number] 00:00:00 00:00:00 Visit 5ql6-7k37 fc6-4d26-8 -8abc-e72 [facility]-p18368 [id number] 9143-08-17 2022-07-02 Outpatient sr5p31g5- [id number] 7n78d2-x 00:00:00 00:00:00 Visit u592-2o1t 132-4a9d-b -d1g6-78q 9o2-80i94o 66onj837k xf603o 2022-06-24 2022-06-24 Outpatient [id number]- [id number] 6s7151-g 00:00:00 00:00:00 Visit bh4p-21m9 p9j-09c3-4 -5u88-mk2 k79-jh838c 29ed715z2 b462a8 2022-06-13 2022-06-13 Outpatient [id number] 6l83iy-i 00:00:00 00:00:00 Visit afb2-4cdf fb2-4cdf-a -x98r-em5 78e-fc8d82 [id number] 2021-10-19 2021-10-19 [facility] 1.2.840.114 [id number] Univers 08:50:54 23:59:00 Encounter [place] [id number] ity of [place] 4.2.7.2.686 [facility] [id number] [facility] 806 Branch 2021-10-19 2021-10-19 [facility] 1.2.840.114 [id number] Univers 08:50:39 23:59:00 Encounter [place] [id number] ity of [place] 4.2.7.2.686 [facility] [id number] [facility] 806 Branch 2021-10-19 2021-10-19 Outpatient R RADIOLOGY [facility] [id number] Univers 00:00:00 23:59:00 ity of [facility] 2021-10-19 2021-10-19 Outpatient R RADIOLOGY [facility] [id number] Univers 00:00:00 00:00:00 [id number] ity of [facility] 2021-09-17 2021-09-17 Hospital Radiology [facility] 1.2.840.114 [id number] Univers 14:01:36 23:59:00 Encounter [place] [id number] ity of [place] 4.2.7.2.686 [facility] [id number] [facility] 806 Branch 2021-09-17 2021-09-17 Outpatient R RADIOLOGY [facility] [id number] Univers 13:58:59 14:00:00 ity of [facility] 2021-09-17 2021-09-17 Hospital Radiology [facility] 1.2.840.114 [id number] Univers 13:58:59 14:00:00 Encounter [place] [id number] ity of [facility] 4.2.7.2.686 [facility] [id number] [facility] 800 Branch 2021-09-17 2021-09-17 Outpatient R RADIOLOGY [facility] [id number] 5N-20 Univers 00:00:00 00:00:00 [id number] ity of [facility] 2021-09-17 2021-09-17 Orders Doctor HORNE 1.2.840.114 [id number] Univers 00:00:00 00:00:00 Only Unassigned, SURAJ [id number] ity of [place] [facility] 4.2.7.2.686 [place] as [id number] [facility] 009 Branch 2021-08-27 2021-08-27 [facility]iology [facility] 1.2.840.114 [id number] Univers 12:43:08 23:59:00 Encounter [place] 350.1.13.10 ity of [place] 4.2.7.2.686 [facility] [id number] [facility] 806 Branch 2021-08-27 2021-08-27 Hospital Radiology [facility] 1.2.840.114 [id number] Univers 12:30:00 12:42:00 Encounter [place] [id number] ity of [place] 4.2.7.2.686 [place] [facility] [id number] [facility] 800 Branch 2021-08-27 2021-08-27 Outpatient R [facility] [id number] Univers 00:00:00 00:00:00 [id number] ity of [facility] 2021-08-27 2021-08-27 Outpatient R RADIOLOGY [facility] [id number] Univers 00:00:00 00:00:00 ity of [facility] 2021-08-27 2021-08-27 Orders Doctor HORNE 1.2.840.114 [id number] Univers 00:00:00 00:00:00 Only Unassigned, SURAJ 350.1.13.10 ity of [place] [facility] 4.2.7.2.686 [place] [id number] [facility] 009 Branch 2021-07-02 2021-07-02 Outpatient R RADIOLOGY [facility] [id number] Univers 10:00:00 10:00:00 [id number] ity [facility] 2021-06-14 2021-06-14 Outpatient R SHARONA, [facility] [id number] Univers 00:00:00 00:00:00 ANGEL [id number] ity [facility] 2021-06-07 2021-06-07 Outpatient R DAX, [facility] [id number] Univers 10:00:00 10:00:00 ANGEL [id number] ity [facility] 2021-06-07 2021-06-07 Outpatient R SHARONA, [facility] [id number] Univers 00:00:00 00:00:00 ANGEL [facility] 2021-05-06 2021-05-06 [facility] 1.2.840.114 [id number] Univers 00:00:00 00:00:00 Lea SHEEHAN 350.1.13.10 i ty of [facility] [place]7.2.[place] [id number] [facility] 144 Branch 2021-04-03 2021-04-03 Hospital Radiology [facility] 1.2.840.114 [id number] Univers 09:39:20 23:59:00 Encounter [place] 350.1.13.10 ity of [place] 4.2.7.2.686 [facility] [id number] [facility] 800 Branch 2021-04-03 2021-04-03 Outpatient R RADIOLOGY [facility] [id number] [id number] Univers 09:40:00 09:40:00 [id number] ity of [facility] 2021-04-03 2021-04-03 Outpatient R RADIOLOGY [facility] [id number] Univers 00:00:00 00:00:00 ity [facility] 2021-04-03 2021-04-03 Orders Doctor COLEEN [id number] Univers 00:00:00 00:00:00 Only Unassigned, SURAJ [id number] [id number] [id number] [facility] [address] 2021-02-01 2021-02-01 Outpatient R MAKAYLA [facility] [id number] Univers 14:30:00 14:30:00 LEA grant [facility] 2021-02-01 2021-02-01 Ancillary Geovanna Lopez [facility] [id number] Univers 13:05:26 13:50:26 Visit Natasha Alvarado [id number] 0 ity of [facility] [place] [id number] [facility] [address] 2021-02-01 2021-02-01 Office Makayla [facility] [id number] Univers 13:05:43 13:20:43 Visit Lea SHEEHAN [id number] i ty of [facility] 4[place].2.[place] [phone] [facility] [address] 2021-02-01 2021-02-01 Out[facility] [id number] Univers 13:00:00 13:00:00 [id number] ity [facility] 2021-02-01 2021-02-01 Orders Doctor COLEEN 1.2.840.114 [id number] Univers 00:00:00 00:00:00 Only Unassigned, SURAJ 350.1.13.10 ity of [place] [facility] 4.2.7.2.[phone] [facility] leah 009 Branch 2021-01-26 2021-01-26 Patient Oskar [facility] 1.2.840.114 [id number] Univers 00:00:00 00:00:00 Outreach Tomasz PRIMARY 350.1.13.10 i ty of [facility] 4.2.7.2.686 [place] t[place] SANCHEZ [phone] In dical 388 [address] 2021-01-23 2021-01-23 Outpatient R [facility] [id number] Univers 09:45:00 09:45:00 [id number] ity [facility] 2021-01-02 2021-01-02 Outpatient R [facility] [id number] Univers 09:00:00 09:00:00 [id number] ity [facility] 2021-01-02 2021-01-02 Outpatient R [facility] [id number] Univers 09:00:00 09:00:00 ity [facility] 2020-11-21 2020-11-21 [facility] [id number] Univers 09:45:00 09:45:00 LEA [id number] ity [facility] 2020-11-21 2020-11-21 [facility] [id number] Univers 09:45:00 09:45:00 [facility] 2020-11-21 2020-11-21 [facility] 1.2.840.114 [id number] Univers 08:50:03 09:05:03 Visit Lea SHEEHAN 350.1.13.10 i ty [place]2.[place] [phone] [facility] [address] 2020-11-21 2020-11-21 Telephone Makayla [facility] [id number] Univers 00:00:00 00:00:00 Lea SHEEHAN 350.1.13.10 i ty of [facility] 4[place].2.[place] [phone] [facility] [address] 2020-11-13 2020-11-13 Orders Doctor COLEEN 1.2.840.114 [id number] [facility] 00:00:00 00:00:00 Only Unassigned, SURAJ 350.1.13.10 ity of [place] [facility] 4.2.7.2.686 [place] [id number] [facility] 009 Branch Results Test Description Test Time Test Comments Results Result Comments Source ALBUMIN/CREATININE RATIO, URINE, RANDOM 2022-07-04 05:39:10 Test Item Value Reference Range Interpretation Comme nts CREATININE, URINE, RANDOM 62.7 MG/DL NOT ESTAB (test code = 2072) ALBUMIN, URINE, RANDOM (test 76.1 MG/DL NOT ESTAB code = 45369) CALC ALBUMIN/CREAT, RND (test 1214 MG/G <30 H Note: Albumin/Creatinine ratio code = 81833) reference inte rval reflects ADA and NKF guideli slade. UNLESS OTHERWISE INDIC ATED, ALL TESTING PERFORMED [facility], [facility]. [address] [place] [address] 4 SERVICE PLANNER: Osei PHELPS [id number] CAP ACCREDITATION N O. [id number] LIPID [id number] 04:10:17 Test Item Value Reference Range Interpretation Comments CHOLESTEROL (test 196 MG/DL <200 code = 2210) TRIGLYCERIDES (test 876 MG/DL <150 H code = 2232) HDL CHOLESTEROL 35 MG/DL >39 L (test code = 2220) CALC LDL CHOL (test (NOTE) MG/DL <100 UNABLE T O CALCULATE A code = 2237) VALID LDL OPAL STEROL WHEN THE TRIGLYCERIDEVAL UE IS GREATER THAN 40 0 MG/DL.UNABLE TO CALCULATE A STEF ID LDL CHOLESTEROL WHE N THE TRIGLYCERIDEVAL UE IS GREATER THAN 40 0 MG/DL. NOTE: CALCULATE D LDL IS BASED ON CHRISTIAN -NICHOLS METHOD WHICHINC LUDES ADJUSTABLE TRIGLYCERIDE:VL DL CHOLESTEROL RAT IO.THIS FACTOR VARIES B Y MEASURED TRIGLY CERIDE AND NON-HDLCHOL ESTEROL CONCENTRATIONS WITH INCREASED CALCU LATED LDL SEENIN HIGH ER TRIGLYCERIDE OR LOWER NON-HDL SPECIME NS. FOR MOREINFORMATION , SEE CLIENT ANNOUNCE MENT AT [email or web address] CalcLDL-C RISK RATIO LDL/HDL (NOTE) RATIO <3.22 UNABLE T O CALCULATE (test code = 223) COMPREHENSIVE METABOLIC [id number] 04:10:17 Test Item Value Reference Range Interpretation Comments GLUCOSE (test code = 294 MG/DL 70-99 H 2216) BUN (test code = 24 MG/DL 6-20 H 2207) CREATININE (test 0.82 MG/DL 0.60-1.30 code = 221) eGFR (2020 CKD-EPI) 83 ML/MIN/1.73 >60 (test code = 33610) CALC BUN/CREAT (test 29 RATIO 6-28 H code = 2235) SODIUM (test code = 136 MEQ/L 686-276 0643) POTASSIUM (test code 4.1 MEQ/L 3.5-5.4 = 2227) CHLORIDE (test code 97 MEQ/L 95-107 = 2214) CARBON DIOXIDE (test 25 MEQ/L 19-31 code = 220) CALCIUM (test code = 9.8 MG/DL 8.5-10.5 2208) PROTEIN, TOTAL (test 7.4 G/DL 6.1-8.3 code = 222) ALBUMIN (test code = 4.5 G/DL 3.5-5.2 2200) CALC GLOBULIN (test 2.9 G/DL 1.9-3.7 code = 2240) CALC A/G RATIO (test 1.6 RATIO 1.0-2.6 code = 223) BILIRUBIN, TOTAL 0.2 MG/DL See_Comment [Automated message] (test code = 220) The syste m which generated this result transmit nati reference range : <=1.2. The refe rence range was not u sed to interpret th is result as normal/abnormal . ALKALINE PHOSPHATASE 145 U/L 40-136 H (test code = 2203) AST (test code = 19 U/L 9-40 2217) ALT (test code = 29 U/L 5-40 2218) HEMOGLOBIN [id number] 02:52:29 Test Item Value Reference Range Interpretation Comments HEMOGLOBIN A1c (test 11.3 % 4.2-5.6 H AMERIC AN DIABETES code = 15510) ASSOCIATION IDELINES FOR HGB A1C: PREDIABETES/INC REASED RISK . . . . . . . 5 .7-6.4% DIAGNOSIS OF DI ABETES . . . . . . . . . >=6 .5% WITH CONFIRMATION OR APPROPRIATE SYMPTOMS NOTE: ASSAY MAY BE AFFECTED BY HEMOGLOBINOPATH IES (SICKLE CELL ANEMIA, S- C DISEASE, OTHERS) OR COLE FICIALLY LOWERED BY DECR EASED RED CELL SURVIVAL ( HEMOLYTIC ANEMIAS, BLOOD LOSS, ETC.). CONSIDER ALTERN ATE TESTING OR LABORATORY C ONSULTATION. LIPID [id number] 00:00:00 Test Item Value Reference Range Interpretation Comments CHOLESTEROL (test code = 2210) 196 MG/DL TRIGLYCERIDES (test code = 2232) 876 MG/DL HDL CHOLESTEROL (test code = 35 MG/DL 2220) CALC LDL CHOL (test code = 2237) (NOTE) MG/DL RISK RATIO LDL/HDL (test code = (NOTE) RATIO 2238) LIPID [id number] 00:00:00 Test Item Value Reference Range Interpretation Comments CHOLESTEROL (test code = 2210) 196 MG/DL TRIGLYCERIDES (test code = 2232) 876 MG/DL HDL CHOLESTEROL (test code = 35 MG/DL 2220) CALC LDL CHOL (test code = 2237) (NOTE) MG/DL RISK RATIO LDL/HDL (test code = (NOTE) RATIO 2238) COMPREHENSIVE METABOLIC [id number] 00:00:00 Test Item Value Reference Range Interpretation Comments GLUCOSE (test code = 2217) 294 MG/DL BUN (test code = 2208) 24 MG/DL CREATININE (test code = 2214) 0.82 MG/DL eGFR (2020 CKD-EPI) (test code 83 ML/MIN/1.73 = 30514) CALC BUN/CREAT (test code = 29 RATIO 2235) SODIUM (test code = 2231) 136 MEQ/L POTASSIUM (test code = 2228) 4.1 MEQ/L CHLORIDE (test code = 2215) 97 MEQ/L CARBON DIOXIDE (test code = 25 MEQ/L 2205) CALCIUM (test code = 2209) 9.8 MG/DL PROTEIN, TOTAL (test code = 7.4 G/DL 2228) ALBUMIN (test code = 2201) 4.5 G/DL CALC GLOBULIN (test code = 2.9 G/DL 2240) CALC A/G RATIO (test code = 1.6 RATIO 2234) BILIRUBIN, TOTAL (test code = 0.2 MG/DL 2206) ALKALINE PHOSPHATASE (test 145 U/L code = 2204) AST (test code = 2218) 19 U/L ALT (test code = 2219) 29 U/L COMPREHENSIVE METABOLIC [id number] 00:00:00 Test Item Value Reference Range Interpretation Comments GLUCOSE (test code = 2217) 294 MG/DL BUN (test code = 2208) 24 MG/DL CREATININE (test code = 2214) 0.82 MG/DL eGFR (2020 CKD-EPI) (test code 83 ML/MIN/1.73 = 74328) CALC BUN/CREAT (test code = 29 RATIO 2235) SODIUM (test code = 2231) 136 MEQ/L POTASSIUM (test code = 2228) 4.1 MEQ/L CHLORIDE (test code = 2215) 97 MEQ/L CARBON DIOXIDE (test code = 25 MEQ/L 2205) CALCIUM (test code = 2209) 9.8 MG/DL PROTEIN, TOTAL (test code = 7.4 G/DL 2228) ALBUMIN (test code = 2201) 4.5 G/DL CALC GLOBULIN (test code = 2.9 G/DL 2240) CALC A/G RATIO (test code = 1.6 RATIO 2234) BILIRUBIN, TOTAL (test code = 0.2 MG/DL 2206) ALKALINE PHOSPHATASE (test 145 U/L code = 2204) AST (test code = 2218) 19 U/L ALT (test code = 2219) 29 U/L HEMOGLOBIN [id number] 00:00:00 Test Item Value Reference Range Interpretation Comments HEMOGLOBIN A1c (test code = 28098) 11.3 % HEMOGLOBIN [id number] 00:00:00 Test Item Value Reference Range Interpretation Comments HEMOGLOBIN A1c (test code = 36893) 11.3 % HEMOGLOBIN [id number] 00:00:00 Test Item Value Reference Range Interpretation Comments HEMOGLOBIN A1c (test code = 36964) 11.3 % ALBUMIN/CREATININE RATIO, RANDOM [id number] 00:00:00 Test Item Value Reference Range Interpretation Comments CREATININE, URINE, RANDOM (test 62.7 MG/DL code = 2072) ALBUMIN, URINE, RANDOM (test code 76.1 MG/DL = 01679) CALC ALBUMIN/CREAT, RND (test code 1214 MG/G = 20396) ALBUMIN/CREATININE RATIO, RANDOM [id number] 00:00:00 Test Item Value Reference Range Interpretation Comments CREATININE, URINE, RANDOM (test 62.7 MG/DL code = 2072) ALBUMIN, URINE, RANDOM (test code 76.1 MG/DL = 99248) CALC ALBUMIN/CREAT, RND (test code 1214 MG/G = 13273) LIPID [id number] 00:00:00 Test Item Value Reference Range Interpretation Comments CHOLESTEROL (test code = 2210) 196 MG/DL TRIGLYCERIDES (test code = 2232) 876 MG/DL HDL CHOLESTEROL (test code = 35 MG/DL 2220) CALC LDL CHOL (test code = 2237) (NOTE) MG/DL RISK RATIO LDL/HDL (test code = (NOTE) RATIO 2238) LIPID [id number] 00:00:00 Test Item Value Reference Range Interpretation Comments CHOLESTEROL (test code = 2210) 196 MG/DL TRIGLYCERIDES (test code = 2232) 876 MG/DL HDL CHOLESTEROL (test code = 35 MG/DL 2220) CALC LDL CHOL (test code = 2237) (NOTE) MG/DL RISK RATIO LDL/HDL (test code = (NOTE) RATIO 2238) COMPREHENSIVE METABOLIC [id number] 00:00:00 Test Item Value Reference Range Interpretation Comments GLUCOSE (test code = 2217) 294 MG/DL BUN (test code = 2208) 24 MG/DL CREATININE (test code = 2214) 0.82 MG/DL eGFR (2020 CKD-EPI) (test code 83 ML/MIN/1.73 = 98577) CALC BUN/CREAT (test code = 29 RATIO 2235) SODIUM (test code = 2231) 136 MEQ/L POTASSIUM (test code = 2228) 4.1 MEQ/L CHLORIDE (test code = 2215) 97 MEQ/L CARBON DIOXIDE (test code = 25 MEQ/L 2205) CALCIUM (test code = 2209) 9.8 MG/DL PROTEIN, TOTAL (test code = 7.4 G/DL 2228) ALBUMIN (test code = 2201) 4.5 G/DL CALC GLOBULIN (test code = 2.9 G/DL 2240) CALC A/G RATIO (test code = 1.6 RATIO 2234) BILIRUBIN, TOTAL (test code = 0.2 MG/DL 2206) ALKALINE PHOSPHATASE (test 145 U/L code = 2204) AST (test code = 2218) 19 U/L ALT (test code = 2219) 29 U/L COMPREHENSIVE METABOLIC [id number] 00:00:00 Test Item Value Reference Range Interpretation Comments GLUCOSE (test code = 2217) 294 MG/DL BUN (test code = 2208) 24 MG/DL CREATININE (test code = 2214) 0.82 MG/DL eGFR (2020 CKD-EPI) (test code 83 ML/MIN/1.73 = 84675) CALC BUN/CREAT (test code = 29 RATIO 2235) SODIUM (test code = 2231) 136 MEQ/L POTASSIUM (test code = 2228) 4.1 MEQ/L CHLORIDE (test code = 2215) 97 MEQ/L CARBON DIOXIDE (test code = 25 MEQ/L 2205) CALCIUM (test code = 2209) 9.8 MG/DL PROTEIN, TOTAL (test code = 7.4 G/DL 2228) ALBUMIN (test code = 2201) 4.5 G/DL CALC GLOBULIN (test code = 2.9 G/DL 2240) CALC A/G RATIO (test code = 1.6 RATIO 2234) BILIRUBIN, TOTAL (test code = 0.2 MG/DL 2206) ALKALINE PHOSPHATASE (test 145 U/L code = 2204) AST (test code = 2218) 19 U/L ALT (test code = 2219) 29 U/L HEMOGLOBIN [id number] 00:00:00 Test Item Value Reference Range Interpretation Comments HEMOGLOBIN A1c (test code = 55052) 11.3 % HEMOGLOBIN [id number] 00:00:00 Test Item Value Reference Range Interpretation Comments HEMOGLOBIN A1c (test code = 11342) 11.3 % HEMOGLOBIN [id number] 00:00:00 Test Item Value Reference Range Interpretation Comments HEMOGLOBIN A1c (test code = 47714) 11.3 % ALBUMIN/CREATININE RATIO, RANDOM [id number] 00:00:00 Test Item Value Reference Range Interpretation Comments CREATININE, URINE, RANDOM (test 62.7 MG/DL code = 2072) ALBUMIN, URINE, RANDOM (test code 76.1 MG/DL = 56000) CALC ALBUMIN/CREAT, RND (test code 1214 MG/G = 51415) ALBUMIN/CREATININE RATIO, RANDOM [id number] 00:00:00 Test Item Value Reference Range Interpretation Comments CREATININE, URINE, RANDOM (test 62.7 MG/DL code = 2072) ALBUMIN, URINE, RANDOM (test code 76.1 MG/DL = 21988) CALC ALBUMIN/CREAT, RND (test code 1214 MG/G = 37961) ALBUMIN/CREATININE RATIO, URINE, [id number] 05:38:00 Test Item Value Reference Range Interpretation Comments CREATININE, URINE, 79.8 MG/DL NOT ESTAB RANDOM (test code = 2072) ALBUMIN, URINE, 123.9 MG/DL NOT ESTAB RANDOM (test code = 37563) CALC ALBUMIN/CREAT, 1553 MG/G <30 H Note: RND (test code = Albumin/Cre atinine 97194) ratio reference interval reflec ts ADA and NKF guideli slade. VITAMIN D, 25 [id number] 04:28:47 Test Item Value Reference Range Interpretation Comments VITAMIN D, 25 OH 19 NG/ML SEE BELOW L NOTE: 25-H YDROXYVITAMIN D (test code = 4958) ASSAY INC LUDES 25-HYDROXYVITAM IN D2 AND D3. METHODOLOGY IS CHEMILUMINESCEN T IMMUNOASSAY. INTERPRETIVE RA NGES PEDIATRIC (<17 YEARS) . . . . . . . . . . . NG/ML 20-100ADULT: IN SUFFICIENT . . . . . . . . . . . . . . NG/ML <20 SUBOP TIMAL . . . . . . . . . . . . . . . NG/ML 20-29 OPT IMAL . . . . . . . . . . . . . . . . . NG/ML 30-100 UN LESS OTHERWISE INDIC ATED, ALL TESTING PERFORM [facility] [place] [address] [place] [id number] LABORATORY DIRE CTOR: Luther PHELPS. CLIA NUMBER [id number] CAP ACCREDITATION N O. [id number] MICROALBUMIN/CREATININE, RANDOM AND [id number] 00:00:00 Test Item Value Reference Range Interpretation Comments CREATININE, URINE, RANDOM (test 79.8 MG/DL code = 2072) ALBUMIN, URINE, RANDOM (test code 123.9 MG/DL = 66189) CALC ALBUMIN/CREAT, RND (test 1553 MG/G code = 75141) MICROALBUMIN/CREATININE, RANDOM AND [id number] 00:00:00 Test Item Value Reference Range Interpretation Comments CREATININE, URINE, RANDOM (test 79.8 MG/DL code = 2072) ALBUMIN, URINE, RANDOM (test code 123.9 MG/DL = 42618) CALC ALBUMIN/CREAT, RND (test 1553 MG/G code = 18459) VITAMIN D, 25 [id number] 00:00:00 Test Item Value Reference Range Interpretation Comments VITAMIN D, 25 OH (test code = 4958) 19 NG/ML VITAMIN D, 25 [id number] 00:00:00 Test Item Value Reference Range Interpretation Comments VITAMIN D, 25 OH (test code = 4958) 19 NG/ML MICROALBUMIN/CREATININE, RANDOM AND [id number] 00:00:00 Test Item Value Reference Range Interpretation Comments CREATININE, URINE, RANDOM (test 79.8 MG/DL code = 2072) ALBUMIN, URINE, RANDOM (test code 123.9 MG/DL = 09014) CALC ALBUMIN/CREAT, RND (test 1553 MG/G code = 90916) MICROALBUMIN/CREATININE, RANDOM AND [id number] 00:00:00 Test Item Value Reference Range Interpretation Comments CREATININE, URINE, RANDOM (test 79.8 MG/DL code = 2072) ALBUMIN, URINE, RANDOM (test code 123.9 MG/DL = 03071) CALC ALBUMIN/CREAT, RND (test 1553 MG/G code = 68772) VITAMIN D, 25 [id number] 00:00:00 Test Item Value Reference Range Interpretation Comments VITAMIN D, 25 OH (test code = 4958) 19 NG/ML VITAMIN D, 25 [id number] 00:00:00 Test Item Value Reference Range Interpretation Comments VITAMIN D, 25 OH (test code = 4958) 19 NG/ML MICROALBUMIN/CREATININE, RANDOM AND [id number] 00:00:00 Test Item Value Reference Range Interpretation Comments CREATININE, URINE, RANDOM (test 79.8 MG/DL code = 2072) ALBUMIN, URINE, RANDOM (test code 123.9 MG/DL = 59610) CALC ALBUMIN/CREAT, RND (test 1553 MG/G code = 53282) MICROALBUMIN/CREATININE, RANDOM AND [id number] 00:00:00 Test Item Value Reference Range Interpretation Comments CREATININE, URINE, RANDOM (test 79.8 MG/DL code = 2072) ALBUMIN, URINE, RANDOM (test code 123.9 MG/DL = 78711) CALC ALBUMIN/CREAT, RND (test 1553 MG/G code = 01258) VITAMIN D, 25 [id number] 00:00:00 Test Item Value Reference Range Interpretation Comments VITAMIN D, 25 OH (test code = 4958) 19 NG/ML VITAMIN D, 25 [id number] 00:00:00 Test Item Value Reference Range Interpretation Comments VITAMIN D, 25 OH (test code = 4958) 19 NG/ML MICROALBUMIN/CREATININE, RANDOM AND [id number] 00:00:00 Test Item Value Reference Range Interpretation Comments CREATININE, URINE, RANDOM (test 79.8 MG/DL code = 2072) ALBUMIN, URINE, RANDOM (test code 123.9 MG/DL = 40187) CALC ALBUMIN/CREAT, RND (test 1553 MG/G code = 87896) VITAMIN D, 25 [id number] 00:00:00 Test Item Value Reference Range Interpretation Comments VITAMIN D, 25 OH (test code = 4958) 19 NG/ML LIPID [id number] 01:19:35 Test Item Value Reference Range Interpretation Comments CHOLESTEROL (test 261 MG/DL <200 H code = 2210) TRIGLYCERIDES (test 907 MG/DL <150 H SPE CIMEN LIPEMIC code = 2232) RESULTS RECHECK ED AND VERIFIED HDL CHOLESTEROL 39 MG/DL >39 L (test code = 2220) CALC LDL CHOL (test (NOTE) MG/DL <100 UNABLE T O CALCULATE A code = 2237) VALID LDL OPAL STEROL WHEN THE TRIGLYCERIDEVAL UE IS GREATER THAN 40 0 MG/DL.UNABLE TO CALCULATE A STEF ID LDL CHOLESTEROL WHE N THE TRIGLYCERIDEVAL UE IS GREATER THAN 40 0 MG/DL. NOTE: CALCULATE D LDL IS BASED ON CHRISTIAN -NICHOLS METHOD WHICHINC LUDES ADJUSTABLE TRIGLYCERIDE:VL DL CHOLESTEROL RAT IO.THIS FACTOR VARIES B Y MEASURED TRIGLY CERIDE AND NON-HDLCHOL ESTEROL CONCENTRATIONS WITH INCREASED CALCU LATED LDL SEENIN HIGH ER TRIGLYCERIDE OR LOWER NON-HDL SPECIME NS. FOR MOREINFORMATION , SEE CLIENT ANNOUNCE MENT AT [email or web address] CalcLDL-C RISK RATIO LDL/HDL (NOTE) RATIO <3.22 UNABLE T O CALCULATE (test code = 2237) COMPREHENSIVE METABOLIC [id number] 01:19:35 Test Item Value Reference Range Interpretation Comments GLUCOSE (test code = 247 MG/DL 70-99 H 2216) BUN (test code = 19 MG/DL 6-20 2207) CREATININE (test 0.88 MG/DL 0.60-1.30 code = 221) eGFR (2020 CKD-EPI) 77 ML/MIN/1.73 >60 (test code = 38029) CALC BUN/CREAT (test 22 RATIO 6-28 code = 2235) SODIUM (test code = 139 MEQ/L 279-443 5124) POTASSIUM (test code 4.1 MEQ/L 3.5-5.4 = 2227) CHLORIDE (test code 98 MEQ/L 95-107 = 2214) CARBON DIOXIDE (test 26 MEQ/L 19-31 code = 2206) CALCIUM (test code = 10.7 MG/DL 8.5-10.5 H 2208) PROTEIN, TOTAL (test 7.8 G/DL 6.1-8.3 code = 2229) ALBUMIN (test code = 4.9 G/DL 3.5-5.2 2200) CALC GLOBULIN (test 2.9 G/DL 1.9-3.7 code = 2240) CALC A/G RATIO (test 1.7 RATIO 1.0-2.6 code = 2234) BILIRUBIN, TOTAL <0.2 MG/DL See_Comment [Automated message] (test code = 220) The syste m which generated this result transmit nati reference range : <=1.2. The refe rence range was not u sed to interpret th is result as normal/abnormal . ALKALINE PHOSPHATASE 123 U/L 40-136 (test code = 2203) AST (test code = 21 U/L 9-40 2217) ALT (test code = 19 U/L 5-40 2218) URIC [id number] 01:19:35 Test Item Value Reference Range Interpretation Comments URIC ACID (test code = 2233) 3.6 MG/DL 2.7-6.1 [id number] 01:19:31 Test Item Value Reference Range Interpretation Comments PHOSPHORUS (test code = 2227) 3.1 MG/DL 2.5-4.5 LIPID [id number] 00:00:00 Test Item Value Reference Range Interpretation Comments CHOLESTEROL (test code = 2210) 261 MG/DL TRIGLYCERIDES (test code = 2232) 907 MG/DL HDL CHOLESTEROL (test code = 39 MG/DL 2220) CALC LDL CHOL (test code = 2237) (NOTE) MG/DL RISK RATIO LDL/HDL (test code = (NOTE) RATIO 2238) LIPID [id number] 00:00:00 Test Item Value Reference Range Interpretation Comments CHOLESTEROL (test code = 2210) 261 MG/DL TRIGLYCERIDES (test code = 2232) 907 MG/DL HDL CHOLESTEROL (test code = 39 MG/DL 0) CALC LDL CHOL (test code = 2237) (NOTE) MG/DL RISK RATIO LDL/HDL (test code = (NOTE) RATIO 2238) COMPREHENSIVE METABOLIC [id number] 00:00:00 Test Item Value Reference Range Interpretation Comments GLUCOSE (test code = 2217) 247 MG/DL BUN (test code = 2208) 19 MG/DL CREATININE (test code = 2214) 0.88 MG/DL eGFR (2020 CKD-EPI) (test code 77 ML/MIN/1.73 = 20501) CALC BUN/CREAT (test code = 22 RATIO 2235) SODIUM (test code = 2231) 139 MEQ/L POTASSIUM (test code = 2228) 4.1 MEQ/L CHLORIDE (test code = 2215) 98 MEQ/L CARBON DIOXIDE (test code = 26 MEQ/L 2205) CALCIUM (test code = 2209) 10.7 MG/DL PROTEIN, TOTAL (test code = 7.8 G/DL 2228) ALBUMIN (test code = 2201) 4.9 G/DL CALC GLOBULIN (test code = 2.9 G/DL 0) CALC A/G RATIO (test code = 1.7 RATIO 2234) BILIRUBIN, TOTAL (test code = <0.2 MG/DL 2206) ALKALINE PHOSPHATASE (test 123 U/L code = 2204) AST (test code = 2218) 21 U/L ALT (test code = 2219) 19 U/L COMPREHENSIVE METABOLIC [id number] 00:00:00 Test Item Value Reference Range Interpretation Comments GLUCOSE (test code = 2217) 247 MG/DL BUN (test code = 2208) 19 MG/DL CREATININE (test code = 2214) 0.88 MG/DL eGFR (2020 CKD-EPI) (test code 77 ML/MIN/1.73 = 44115) CALC BUN/CREAT (test code = 22 RATIO 2235) SODIUM (test code = 2231) 139 MEQ/L POTASSIUM (test code = 2228) 4.1 MEQ/L CHLORIDE (test code = 2215) 98 MEQ/L CARBON DIOXIDE (test code = 26 MEQ/L 2205) CALCIUM (test code = 2209) 10.7 MG/DL PROTEIN, TOTAL (test code = 7.8 G/DL 2228) ALBUMIN (test code = 2201) 4.9 G/DL CALC GLOBULIN (test code = 2.9 G/DL 2239) CALC A/G RATIO (test code = 1.7 RATIO 4) BILIRUBIN, TOTAL (test code = <0.2 MG/DL 2206) ALKALINE PHOSPHATASE (test 123 U/L code = 2204) AST (test code = 2218) 21 U/L ALT (test code = 2219) 19 U/L URIC [id number] 00:00:00 Test Item Value Reference Range Interpretation Comments URIC ACID (test code = 2233) 3.6 MG/DL URIC [id number] 00:00:00 Test Item Value Reference Range Interpretation Comments URIC ACID (test code = 2233) 3.6 MG/DL [id number] 00:00:00 Test Item Value Reference Range Interpretation Comments PHOSPHORUS (test code = 2227) 3.1 MG/DL [id number] 00:00:00 Test Item Value Reference Range Interpretation Comments PHOSPHORUS (test code = 2227) 3.1 MG/DL LIPID [id number] 00:00:00 Test Item Value Reference Range Interpretation Comments CHOLESTEROL (test code = 2210) 261 MG/DL TRIGLYCERIDES (test code = 2232) 907 MG/DL HDL CHOLESTEROL (test code = 39 MG/DL 2220) CALC LDL CHOL (test code = 2237) (NOTE) MG/DL RISK RATIO LDL/HDL (test code = (NOTE) RATIO 2238) LIPID [id number] 00:00:00 Test Item Value Reference Range Interpretation Comments CHOLESTEROL (test code = 2210) 261 MG/DL TRIGLYCERIDES (test code = 2232) 907 MG/DL HDL CHOLESTEROL (test code = 39 MG/DL 2220) CALC LDL CHOL (test code = 2237) (NOTE) MG/DL RISK RATIO LDL/HDL (test code = (NOTE) RATIO 2238) COMPREHENSIVE METABOLIC [id number] 00:00:00 Test Item Value Reference Range Interpretation Comments GLUCOSE (test code = 2217) 247 MG/DL BUN (test code = 2208) 19 MG/DL CREATININE (test code = 2214) 0.88 MG/DL eGFR (2020 CKD-EPI) (test code 77 ML/MIN/1.73 = 79060) CALC BUN/CREAT (test code = 22 RATIO 2235) SODIUM (test code = 2231) 139 MEQ/L POTASSIUM (test code = 2228) 4.1 MEQ/L CHLORIDE (test code = 2215) 98 MEQ/L CARBON DIOXIDE (test code = 26 MEQ/L 2205) CALCIUM (test code = 2209) 10.7 MG/DL PROTEIN, TOTAL (test code = 7.8 G/DL 2228) ALBUMIN (test code = 2201) 4.9 G/DL CALC GLOBULIN (test code = 2.9 G/DL 2240) CALC A/G RATIO (test code = 1.7 RATIO 2234) BILIRUBIN, TOTAL (test code = <0.2 MG/DL 2206) ALKALINE PHOSPHATASE (test 123 U/L code = 2204) AST (test code = 2218) 21 U/L ALT (test code = 2219) 19 U/L COMPREHENSIVE METABOLIC [id number] 00:00:00 Test Item Value Reference Range Interpretation Comments GLUCOSE (test code = 2217) 247 MG/DL BUN (test code = 2208) 19 MG/DL CREATININE (test code = 2214) 0.88 MG/DL eGFR (2020 CKD-EPI) (test code 77 ML/MIN/1.73 = 44609) CALC BUN/CREAT (test code = 22 RATIO 2235) SODIUM (test code = 2231) 139 MEQ/L POTASSIUM (test code = 2228) 4.1 MEQ/L CHLORIDE (test code = 2215) 98 MEQ/L CARBON DIOXIDE (test code = 26 MEQ/L 2205) CALCIUM (test code = 2209) 10.7 MG/DL PROTEIN, TOTAL (test code = 7.8 G/DL 2228) ALBUMIN (test code = 2201) 4.9 G/DL CALC GLOBULIN (test code = 2.9 G/DL 224) CALC A/G RATIO (test code = 1.7 RATIO 2234) BILIRUBIN, TOTAL (test code = <0.2 MG/DL 2206) ALKALINE PHOSPHATASE (test 123 U/L code = 2204) AST (test code = 2218) 21 U/L ALT (test code = 2219) 19 U/L URIC [id number] 00:00:00 Test Item Value Reference Range Interpretation Comments URIC ACID (test code = 2233) 3.6 MG/DL URIC [id number] 00:00:00 Test Item Value Reference Range Interpretation Comments URIC ACID (test code = 2233) 3.6 MG/DL [id number] 00:00:00 Test Item Value Reference Range Interpretation Comments PHOSPHORUS (test code = 2227) 3.1 MG/DL [id number] 00:00:00 Test Item Value Reference Range Interpretation Comments PHOSPHORUS (test code = 2227) 3.1 MG/DL LIPID [id number] 00:00:00 Test Item Value Reference Range Interpretation Comments CHOLESTEROL (test code = 2210) 261 MG/DL TRIGLYCERIDES (test code = 2232) 907 MG/DL HDL CHOLESTEROL (test code = 39 MG/DL 2220) CALC LDL CHOL (test code = 2237) (NOTE) MG/DL RISK RATIO LDL/HDL (test code = (NOTE) RATIO 2238) LIPID [id number] 00:00:00 Test Item Value Reference Range Interpretation Comments CHOLESTEROL (test code = 2210) 261 MG/DL TRIGLYCERIDES (test code = 2232) 907 MG/DL HDL CHOLESTEROL (test code = 39 MG/DL 2220) CALC LDL CHOL (test code = 2237) (NOTE) MG/DL RISK RATIO LDL/HDL (test code = (NOTE) RATIO 2238) COMPREHENSIVE METABOLIC [id number] 00:00:00 Test Item Value Reference Range Interpretation Comments GLUCOSE (test code = 2217) 247 MG/DL BUN (test code = 2208) 19 MG/DL CREATININE (test code = 2214) 0.88 MG/DL eGFR (2020 CKD-EPI) (test code 77 ML/MIN/1.73 = 29184) CALC BUN/CREAT (test code = 22 RATIO 2235) SODIUM (test code = 2231) 139 MEQ/L POTASSIUM (test code = 2228) 4.1 MEQ/L CHLORIDE (test code = 2215) 98 MEQ/L CARBON DIOXIDE (test code = 26 MEQ/L 2206) CALCIUM (test code = 2209) 10.7 MG/DL PROTEIN, TOTAL (test code = 7.8 G/DL 2228) ALBUMIN (test code = 2201) 4.9 G/DL CALC GLOBULIN (test code = 2.9 G/DL 2240) CALC A/G RATIO (test code = 1.7 RATIO 2234) BILIRUBIN, TOTAL (test code = <0.2 MG/DL 2206) ALKALINE PHOSPHATASE (test 123 U/L code = 2204) AST (test code = 2218) 21 U/L ALT (test code = 2219) 19 U/L COMPREHENSIVE METABOLIC [id number] 00:00:00 Test Item Value Reference Range Interpretation Comments GLUCOSE (test code = 2217) 247 MG/DL BUN (test code = 2208) 19 MG/DL CREATININE (test code = 2214) 0.88 MG/DL eGFR (2020 CKD-EPI) (test code 77 ML/MIN/1.73 = 68778) CALC BUN/CREAT (test code = 22 RATIO 2235) SODIUM (test code = 2231) 139 MEQ/L POTASSIUM (test code = 2228) 4.1 MEQ/L CHLORIDE (test code = 2215) 98 MEQ/L CARBON DIOXIDE (test code = 26 MEQ/L 2206) CALCIUM (test code = 2209) 10.7 MG/DL PROTEIN, TOTAL (test code = 7.8 G/DL 222) ALBUMIN (test code = 2201) 4.9 G/DL CALC GLOBULIN (test code = 2.9 G/DL 2240) CALC A/G RATIO (test code = 1.7 RATIO 2234) BILIRUBIN, TOTAL (test code = <0.2 MG/DL 2206) ALKALINE PHOSPHATASE (test 123 U/L code = 2204) AST (test code = 2218) 21 U/L ALT (test code = 2219) 19 U/L URIC [id number] 00:00:00 Test Item Value Reference Range Interpretation Comments URIC ACID (test code = 2233) 3.6 MG/DL URIC [id number] 00:00:00 Test Item Value Reference Range Interpretation Comments URIC ACID (test code = 2233) 3.6 MG/DL [id number] 00:00:00 Test Item Value Reference Range Interpretation Comments PHOSPHORUS (test code = 2227) 3.1 MG/DL [id number] 00:00:00 Test Item Value Reference Range Interpretation Comments PHOSPHORUS (test code = 2227) 3.1 MG/DL LIPID [id number] 00:00:00 Test Item Value Reference Range Interpretation Comments CHOLESTEROL (test code = 2210) 261 MG/DL TRIGLYCERIDES (test code = 2232) 907 MG/DL HDL CHOLESTEROL (test code = 39 MG/DL 2219) CALC LDL CHOL (test code = 2237) (NOTE) MG/DL RISK RATIO LDL/HDL (test code = (NOTE) RATIO 2238) COMPREHENSIVE METABOLIC [id number] 00:00:00 Test Item Value Reference Range Interpretation Comments GLUCOSE (test code = 2217) 247 MG/DL BUN (test code = 2208) 19 MG/DL CREATININE (test code = 2214) 0.88 MG/DL eGFR (2020 CKD-EPI) (test code 77 ML/MIN/1.73 = 46543) CALC BUN/CREAT (test code = 22 RATIO 2235) SODIUM (test code = 2231) 139 MEQ/L POTASSIUM (test code = 2228) 4.1 MEQ/L CHLORIDE (test code = 2215) 98 MEQ/L CARBON DIOXIDE (test code = 26 MEQ/L 2205) CALCIUM (test code = 2209) 10.7 MG/DL PROTEIN, TOTAL (test code = 7.8 G/DL 2228) ALBUMIN (test code = 2201) 4.9 G/DL CALC GLOBULIN (test code = 2.9 G/DL 2239) CALC A/G RATIO (test code = 1.7 RATIO 2234) BILIRUBIN, TOTAL (test code = <0.2 MG/DL 2206) ALKALINE PHOSPHATASE (test 123 U/L code = 2204) AST (test code = 2218) 21 U/L ALT (test code = 2219) 19 U/L URIC [id number] 00:00:00 Test Item Value Reference Range Interpretation Comments URIC ACID (test code = 2233) 3.6 MG/DL [id number] 00:00:00 Test Item Value Reference Range Interpretation Comments PHOSPHORUS (test code = 2227) 3.1 MG/DL URINALYSIS W/REFLEX [id number] 08:31:54 Test Item Value Reference Range Interpretation Comments COLOR (test code = YELLOW YELLOW-STRAW 1501) APPEARANCE (test code CLEAR CLEAR = 1502) SPECIFIC GRAVITY (test 1.023 1.005-1.035 code = 1503) LEUKOCYTE ESTERASE NEGATIVE NEGATIVE (test code = 1504) NITRITE (test code = NEGATIVE NEGATIVE 1505) pH (test code = 1506) 6.5 5.0-9.0 PROTEIN (test code = 3+ NEGATIVE A 1507) GLUCOSE (test code = 3+ NEGATIVE A 1508) KETONES (test code = NEGATIVE NEGATIVE 1509) UROBILINOGEN (test 0.2 MG/DL See_Comment [Automat ed message] code = 1510) The system [employer] generated this result transmitted ref erence range: <=2.0. T he reference range was not used to int erpret this result as normal/abnormal . BILIRUBIN (test code = NEGATIVE NEGATIVE 1511) OCCULT BLOOD (test NEGATIVE NEGATIVE code = 1512) WHITE BLOOD CELLS 5-10 /HPF 0-5 A (test code = 1513) RED BLOOD CELLS (test 10-15 /HPF 0-5 A code = 1514) EPITHELIAL CELLS (test 0-5 /HPF 0-10 code = 17648) BACTERIA (test code = NONE SEEN NONE SEEN 1515) CASTS, HYALINE (test NONE SEEN NONE-TRACE code = 1517) HEMOGLOBIN [id number] 03:20:35 Test Item Value Reference Range Interpretation Comments HEMOGLOBIN A1c (test 12.5 % 4.2-5.6 H AMERIC AN DIABETES code = 68563) ASSOCIATION IDELINES FOR HGB A1C: PREDIABETES/INC REASED RISK . . . . . . . 5 .7-6.4% DIAGNOSIS OF DI ABETES . . . . . . . . . >=6 .5% WITH CONFIRMATION OR APPROPRIATE SYMPTOMS NOTE: ASSAY MAY BE AFFECTED BY HEMOGLOBINOPATH IES (SICKLE CELL ANEMIA, S- C DISEASE, OTHERS) OR COLE FICIALLY LOWERED BY DECR EASED RED CELL SURVIVAL ( HEMOLYTIC ANEMIAS, BLOOD LOSS, ETC.). CONSIDER ALTERN ATE TESTING OR LABORATORY C ONSULTATION. URINALYSIS W/REFLEX [id number] 00:00:00 Test Item Value Reference Range Interpretation Comments COLOR (test code = 1501) YELLOW APPEARANCE (test code = 1502) CLEAR SPECIFIC GRAVITY (test code = 1.023 1503) LEUKOCYTE ESTERASE (test code = NEGATIVE 1504) NITRITE (test code = 1505) NEGATIVE pH (test code = 1506) 6.5 PROTEIN (test code = 1507) 3+ GLUCOSE (test code = 1508) 3+ KETONES (test code = 1509) NEGATIVE UROBILINOGEN (test code = 1510) 0.2 MG/DL BILIRUBIN (test code = 1511) NEGATIVE OCCULT BLOOD (test code = 1512) NEGATIVE WHITE BLOOD CELLS (test code = 5-10 /HPF 1513) RED BLOOD CELLS (test code = 1514) 10-15 /HPF EPITHELIAL CELLS (test code = 0-5 /HPF 99946) BACTERIA (test code = 1515) NONE SEEN CASTS, HYALINE (test code = 1517) NONE SEEN URINALYSIS W/REFLEX [id number] 00:00:00 Test Item Value Reference Range Interpretation Comments COLOR (test code = 1501) YELLOW APPEARANCE (test code = 1502) CLEAR SPECIFIC GRAVITY (test code = 1.023 1503) LEUKOCYTE ESTERASE (test code = NEGATIVE 1504) NITRITE (test code = 1505) NEGATIVE pH (test code = 1506) 6.5 PROTEIN (test code = 1507) 3+ GLUCOSE (test code = 1508) 3+ KETONES (test code = 1509) NEGATIVE UROBILINOGEN (test code = 1510) 0.2 MG/DL BILIRUBIN (test code = 1511) NEGATIVE OCCULT BLOOD (test code = 1512) NEGATIVE WHITE BLOOD CELLS (test code = 5-10 /HPF 1513) RED BLOOD CELLS (test code = 1514) 10-15 /HPF EPITHELIAL CELLS (test code = 0-5 /HPF 99568) BACTERIA (test code = 1515) NONE SEEN CASTS, HYALINE (test code = 1517) NONE SEEN HEMOGLOBIN [id number] 00:00:00 Test Item Value Reference Range Interpretation Comments HEMOGLOBIN A1c (test code = 30638) 12.5 % HEMOGLOBIN [id number] 00:00:00 Test Item Value Reference Range Interpretation Comments HEMOGLOBIN A1c (test code = 99141) 12.5 % HEMOGLOBIN [id number] 00:00:00 Test Item Value Reference Range Interpretation Comments HEMOGLOBIN A1c (test code = 49991) 12.5 % URINALYSIS W/REFLEX [id number] 00:00:00 Test Item Value Reference Range Interpretation Comments COLOR (test code = 1501) YELLOW APPEARANCE (test code = 1502) CLEAR SPECIFIC GRAVITY (test code = 1.023 1503) LEUKOCYTE ESTERASE (test code = NEGATIVE 1504) NITRITE (test code = 1505) NEGATIVE pH (test code = 1506) 6.5 PROTEIN (test code = 1507) 3+ GLUCOSE (test code = 1508) 3+ KETONES (test code = 1509) NEGATIVE UROBILINOGEN (test code = 1510) 0.2 MG/DL BILIRUBIN (test code = 1511) NEGATIVE OCCULT BLOOD (test code = 1512) NEGATIVE WHITE BLOOD CELLS (test code = 5-10 /HPF 1513) RED BLOOD CELLS (test code = 1514) 10-15 /HPF EPITHELIAL CELLS (test code = 0-5 /HPF 12568) BACTERIA (test code = 1515) NONE SEEN CASTS, HYALINE (test code = 1517) NONE SEEN URINALYSIS W/REFLEX [id number] 00:00:00 Test Item Value Reference Range Interpretation Comments COLOR (test code = 1501) YELLOW APPEARANCE (test code = 1502) CLEAR SPECIFIC GRAVITY (test code = 1.023 1503) LEUKOCYTE ESTERASE (test code = NEGATIVE 1504) NITRITE (test code = 1505) NEGATIVE pH (test code = 1506) 6.5 PROTEIN (test code = 1507) 3+ GLUCOSE (test code = 1508) 3+ KETONES (test code = 1509) NEGATIVE UROBILINOGEN (test code = 1510) 0.2 MG/DL BILIRUBIN (test code = 1511) NEGATIVE OCCULT BLOOD (test code = 1512) NEGATIVE WHITE BLOOD CELLS (test code = 5-10 /HPF 1513) RED BLOOD CELLS (test code = 1514) 10-15 /HPF EPITHELIAL CELLS (test code = 0-5 /HPF 24314) BACTERIA (test code = 1515) NONE SEEN CASTS, HYALINE (test code = 1517) NONE SEEN HEMOGLOBIN [id number] 00:00:00 Test Item Value Reference Range Interpretation Comments HEMOGLOBIN A1c (test code = 48232) 12.5 % HEMOGLOBIN [id number] 00:00:00 Test Item Value Reference Range Interpretation Comments HEMOGLOBIN A1c (test code = 67242) 12.5 % HEMOGLOBIN [id number] 00:00:00 Test Item Value Reference Range Interpretation Comments HEMOGLOBIN A1c (test code = 01650) 12.5 % URINALYSIS W/REFLEX [id number] 00:00:00 Test Item Value Reference Range Interpretation Comments COLOR (test code = 1501) YELLOW APPEARANCE (test code = 1502) CLEAR SPECIFIC GRAVITY (test code = 1.023 1503) LEUKOCYTE ESTERASE (test code = NEGATIVE 1504) NITRITE (test code = 1505) NEGATIVE pH (test code = 1506) 6.5 PROTEIN (test code = 1507) 3+ GLUCOSE (test code = 1508) 3+ KETONES (test code = 1509) NEGATIVE UROBILINOGEN (test code = 1510) 0.2 MG/DL BILIRUBIN (test code = 1511) NEGATIVE OCCULT BLOOD (test code = 1512) NEGATIVE WHITE BLOOD CELLS (test code = 5-10 /HPF 1513) RED BLOOD CELLS (test code = 1514) 10-15 /HPF EPITHELIAL CELLS (test code = 0-5 /HPF 51547) BACTERIA (test code = 1515) NONE SEEN CASTS, HYALINE (test code = 1517) NONE SEEN URINALYSIS W/REFLEX [id number] 00:00:00 Test Item Value Reference Range Interpretation Comments COLOR (test code = 1501) YELLOW APPEARANCE (test code = 1502) CLEAR SPECIFIC GRAVITY (test code = 1.023 1503) LEUKOCYTE ESTERASE (test code = NEGATIVE 1504) NITRITE (test code = 1505) NEGATIVE pH (test code = 1506) 6.5 PROTEIN (test code = 1507) 3+ GLUCOSE (test code = 1508) 3+ KETONES (test code = 1509) NEGATIVE UROBILINOGEN (test code = 1510) 0.2 MG/DL BILIRUBIN (test code = 1511) NEGATIVE OCCULT BLOOD (test code = 1512) NEGATIVE WHITE BLOOD CELLS (test code = 5-10 /HPF 1513) RED BLOOD CELLS (test code = 1514) 10-15 /HPF EPITHELIAL CELLS (test code = 0-5 /HPF 64090) BACTERIA (test code = 1515) NONE SEEN CASTS, HYALINE (test code = 1517) NONE SEEN HEMOGLOBIN [id number] 00:00:00 Test Item Value Reference Range Interpretation Comments HEMOGLOBIN A1c (test code = 72273) 12.5 % HEMOGLOBIN [id number] 00:00:00 Test Item Value Reference Range Interpretation Comments HEMOGLOBIN A1c (test code = 91939) 12.5 % URINALYSIS W/REFLEX [id number] 00:00:00 Test Item Value Reference Range Interpretation Comments COLOR (test code = 1501) YELLOW APPEARANCE (test code = 1502) CLEAR SPECIFIC GRAVITY (test code = 1.023 1503) LEUKOCYTE ESTERASE (test code = NEGATIVE 1504) NITRITE (test code = 1505) NEGATIVE pH (test code = 1506) 6.5 PROTEIN (test code = 1507) 3+ GLUCOSE (test code = 1508) 3+ KETONES (test code = 1509) NEGATIVE UROBILINOGEN (test code = 1510) 0.2 MG/DL BILIRUBIN (test code = 1511) NEGATIVE OCCULT BLOOD (test code = 1512) NEGATIVE WHITE BLOOD CELLS (test code = 5-10 /HPF 1513) RED BLOOD CELLS (test code = 1514) 10-15 /HPF EPITHELIAL CELLS (test code = 0-5 /HPF 03431) BACTERIA (test code = 1515) NONE SEEN CASTS, HYALINE (test code = 1517) NONE SEEN HEMOGLOBIN [id number] 00:00:00 Test Item Value Reference Range Interpretation Comments HEMOGLOBIN A1c (test code = 83450) 12.5 % HEMOGLOBIN [id number] 00:00:00 Test Item Value Reference Range Interpretation Comments HEMOGLOBIN A1c (test code = 83831) 12.5 % HEMOGLOBIN [id number] 00:00:00 Test Item Value Reference Range Interpretation Comments HEMOGLOBIN A1c (test code = 65945) 12.5 % VAGINAL PATHOGENS DNA [id number] 14:42:05 Test Item Value Reference Range Interpretation Comments LUCY SPECIES (test NEGATIVE NEGATIVE code = 88682) G. VAGINALIS (test NEGATIVE NEGATIVE code = 95434) T. VAGINALIS (test NEGATIVE NEGATIVE UNLESS O THERWISE code = 00370) INDICATED, ALL TESTING PERFORMED [facility] PATHOLOGY [facility]. [address] [place] [address] 78 [phone] LABORATORY DIRE CTOR: ELLI BERNSTEIN M.D. CLIA NUMBER [id number] [facility] [place]. [id number] VAGINAL PATHOGENS DNA [id number] 00:00:00 Test Item Value Reference Range Interpretation Comments LUCY SPECIES (test code = 47745) NEGATIVE G. VAGINALIS (test code = 36026) NEGATIVE T. VAGINALIS (test code = 40817) NEGATIVE VAGINAL PATHOGENS DNA [id number] 00:00:00 Test Item Value Reference Range Interpretation Comments LUCY SPECIES (test code = 22120) NEGATIVE G. VAGINALIS (test code = 13820) NEGATIVE T. VAGINALIS (test code = 75473) NEGATIVE VAGINAL PATHOGENS DNA [id number] 00:00:00 Test Item Value Reference Range Interpretation Comments LUCY SPECIES (test code = 33345) NEGATIVE G. VAGINALIS (test code = 29692) NEGATIVE T. VAGINALIS (test code = 24938) NEGATIVE VAGINAL PATHOGENS DNA [id number] 00:00:00 Test Item Value Reference Range Interpretation Comments LUCY SPECIES (test code = 28878) NEGATIVE G. VAGINALIS (test code = 69495) NEGATIVE T. VAGINALIS (test code = 57826) NEGATIVE VAGINAL PATHOGENS DNA [id number] 00:00:00 Test Item Value Reference Range Interpretation Comments LUCY SPECIES (test code = 35565) NEGATIVE G. VAGINALIS (test code = 11378) NEGATIVE T. VAGINALIS (test code = 90417) NEGATIVE VAGINAL PATHOGENS DNA [id number] 00:00:00 Test Item Value Reference Range Interpretation Comments LUCY SPECIES (test code = 15807) NEGATIVE G. VAGINALIS (test code = 31721) NEGATIVE T. VAGINALIS (test code = 58433) NEGATIVE VAGINAL PATHOGENS DNA [id number] 00:00:00 Test Item Value Reference Range Interpretation Comments LUCY SPECIES (test code = 43547) NEGATIVE G. VAGINALIS (test code = 56156) NEGATIVE T. VAGINALIS (test code = 34756) NEGATIVE IMMUNOFIXATION + PROTEIN ELECTROPHORESIS, [id number] 11:30:55 Test Item Value Reference Range Interpretation Comments PROTEIN, 19 MG/DL URINE, CONC. (test code = 2635) PROTEIN, (NOTE) MG/24 0-150 RANDOM URINE S AMPLE URINE, 24 HR HR SUBMITTED. UNAB LE TO (test code = CALCULATE 24 HO UR URINE 2636) PROTEIN. % ALBUMIN 66 % (test code = 2529) % ALPHA-1 15 % (test code = 2530) % ALPHA-2 7 % (test code = 2531) % BETA (test 8 % code = 2532) % GAMMA (test 4 % code = 2533) INTERPRETATION (NOTE) MILD NON-MOLLY CTIVE , UPEP: (test PROTEINURIA. N O MONOCLONAL code = 2536) PROTEIN SEEN. Danae LOWE M.D. INTERPRETATION (NOTE) URINE IMMUNOE LECTROPHORESIS , GLADYS (IEP): SHOWS POLYCLONA L (test code = IMMUNOGLOBULINS PRESENT. NO 2525) MONOCLONAL IMMU NOGLOBULINS OR FREE MONOCLO NALLIGHT CHAINS SEEN. REA LOWE M.D. U NLESS OTHERWISE INDIC ATED, ALL TESTING PERFORM ED ATCLINICAL PATHOLOGY LABOR [facility] [address] [place] [id number] LABORATOR Y DIRECTOR: ELLI BERNSTEIN M.D. CLIA NUMBER [id number] CAP ACCREDITATION N O. [id number] PROTEIN ELECTROPHORESIS, [id number] 08:21:46 Test Item Value Reference Range Interpretation Comments ALBUMIN (test code 4.4 G/DL 2.8-4.9 = 2554) % ALBUMIN (test 58 % code = 2562) GLOBULIN (test code 3.2 G/DL 2.0-3.8 = 2555) A/G RATIO (test 1.4 RATIO 1.2-1.9 code = 2561) ALPHA-1 (test code 0.3 G/DL 0.2-0.5 = 2556) % ALPHA-1 (test 4 % code = 2563) ALPHA-2 (test code 0.8 G/DL 0.5-1.0 = 2557) % ALPHA-2 (test 11 % code = 2564) BETA (test code = 0.9 G/DL 0.5-1.2 2558) % BETA (test code = 12 % 2565) GAMMA (test code = 1.2 G/DL 0.7-1.5 2559) % GAMMA (test code 15 % = 2566) PROTEIN, TOTAL 7.6 G/DL 6.1-8.3 (test code = 2229) INTERPRETATION, (NOTE) NORMAL SERUM PROTEIN SPEP: (test code = ELECTROPH ORESIS STUDY. NO 2568) MONOCLONAL PROT EIN SEEN. FAY Simons M.D. PROTEIN ELECTROPHORESIS, [id number] 00:00:00 Test Item Value Reference Range Interpretation Comments ALBUMIN (test code = 2554) 4.4 G/DL % ALBUMIN (test code = 2562) 58 % GLOBULIN (test code = 2555) 3.2 G/DL A/G RATIO (test code = 2561) 1.4 RATIO ALPHA-1 (test code = 2556) 0.3 G/DL % ALPHA-1 (test code = 2563) 4 % ALPHA-2 (test code = 2557) 0.8 G/DL % ALPHA-2 (test code = 2564) 11 % BETA (test code = 2558) 0.9 G/DL % BETA (test code = 2565) 12 % GAMMA (test code = 2559) 1.2 G/DL % GAMMA (test code = 2566) 15 % PROTEIN, TOTAL (test code = 2229) 7.6 G/DL INTERPRETATION, SPEP: (test code = (NOTE) 2568) PROTEIN ELECTROPHORESIS, [id number] 00:00:00 Test Item Value Reference Range Interpretation Comments ALBUMIN (test code = 2554) 4.4 G/DL % ALBUMIN (test code = 2562) 58 % GLOBULIN (test code = 2555) 3.2 G/DL A/G RATIO (test code = 2561) 1.4 RATIO ALPHA-1 (test code = 2556) 0.3 G/DL % ALPHA-1 (test code = 2563) 4 % ALPHA-2 (test code = 2557) 0.8 G/DL % ALPHA-2 (test code = 2564) 11 % BETA (test code = 2558) 0.9 G/DL % BETA (test code = 2565) 12 % GAMMA (test code = 2559) 1.2 G/DL % GAMMA (test code = 2566) 15 % PROTEIN, TOTAL (test code = 2229) 7.6 G/DL INTERPRETATION, SPEP: (test code = (NOTE) 2568) PROTEIN ELECTROPHORESIS, [id number] 00:00:00 Test Item Value Reference Range Interpretation Comments ALBUMIN (test code = 2554) 4.4 G/DL % ALBUMIN (test code = 2562) 58 % GLOBULIN (test code = 2555) 3.2 G/DL A/G RATIO (test code = 2561) 1.4 RATIO ALPHA-1 (test code = 2556) 0.3 G/DL % ALPHA-1 (test code = 2563) 4 % ALPHA-2 (test code = 2557) 0.8 G/DL % ALPHA-2 (test code = 2564) 11 % BETA (test code = 2558) 0.9 G/DL % BETA (test code = 2565) 12 % GAMMA (test code = 2559) 1.2 G/DL % GAMMA (test code = 2566) 15 % PROTEIN, TOTAL (test code = 2229) 7.6 G/DL INTERPRETATION, SPEP: (test code = (NOTE) 2568) IMMUNOFIXATION + PROTEIN ELECTROPHORESIS, URINE [ADDED][id number] 00:00:00 Test Item Value Reference Range Interpretation Comments PROTEIN, URINE, CONC. (test 19 MG/DL code = 2635) PROTEIN, URINE, 24 HR (test (NOTE) MG/24HR code = 2636) % ALBUMIN (test code = 2529) 66 % % ALPHA-1 (test code = 2530) 15 % % ALPHA-2 (test code = 2531) 7 % % BETA (test code = 2532) 8 % % GAMMA (test code = 2533) 4 % INTERPRETATION, UPEP: (test (NOTE) code = 2536) INTERPRETATION, GLADYS (IEP): (NOTE) (test code = 2525) IMMUNOFIXATION + PROTEIN ELECTROPHORESIS, URINE [ADDED][id number] 00:00:00 Test Item Value Reference Range Interpretation Comments PROTEIN, URINE, CONC. (test 19 MG/DL code = 2635) PROTEIN, URINE, 24 HR (test (NOTE) MG/24HR code = 2636) % ALBUMIN (test code = 2529) 66 % % ALPHA-1 (test code = 2530) 15 % % ALPHA-2 (test code = 2531) 7 % % BETA (test code = 2532) 8 % % GAMMA (test code = 2533) 4 % INTERPRETATION, UPEP: (test (NOTE) code = 2536) INTERPRETATION, GLADYS (IEP): (NOTE) (test code = 2525) PROTEIN ELECTROPHORESIS, [id number] 00:00:00 Test Item Value Reference Range Interpretation Comments ALBUMIN (test code = 2554) 4.4 G/DL % ALBUMIN (test code = 2562) 58 % GLOBULIN (test code = 2555) 3.2 G/DL A/G RATIO (test code = 2561) 1.4 RATIO ALPHA-1 (test code = 2556) 0.3 G/DL % ALPHA-1 (test code = 2563) 4 % ALPHA-2 (test code = 2557) 0.8 G/DL % ALPHA-2 (test code = 2564) 11 % BETA (test code = 2558) 0.9 G/DL % BETA (test code = 2565) 12 % GAMMA (test code = 2559) 1.2 G/DL % GAMMA (test code = 2566) 15 % PROTEIN, TOTAL (test code = 2229) 7.6 G/DL INTERPRETATION, SPEP: (test code = (NOTE) 2568) PROTEIN ELECTROPHORESIS, [id number] 00:00:00 Test Item Value Reference Range Interpretation Comments ALBUMIN (test code = 2554) 4.4 G/DL % ALBUMIN (test code = 2562) 58 % GLOBULIN (test code = 2555) 3.2 G/DL A/G RATIO (test code = 2561) 1.4 RATIO ALPHA-1 (test code = 2556) 0.3 G/DL % ALPHA-1 (test code = 2563) 4 % ALPHA-2 (test code = 2557) 0.8 G/DL % ALPHA-2 (test code = 2564) 11 % BETA (test code = 2558) 0.9 G/DL % BETA (test code = 2565) 12 % GAMMA (test code = 2559) 1.2 G/DL % GAMMA (test code = 2566) 15 % PROTEIN, TOTAL (test code = 2229) 7.6 G/DL INTERPRETATION, SPEP: (test code = (NOTE) 2568) PROTEIN ELECTROPHORESIS, [id number] 00:00:00 Test Item Value Reference Range Interpretation Comments ALBUMIN (test code = 2554) 4.4 G/DL % ALBUMIN (test code = 2562) 58 % GLOBULIN (test code = 2555) 3.2 G/DL A/G RATIO (test code = 2561) 1.4 RATIO ALPHA-1 (test code = 2556) 0.3 G/DL % ALPHA-1 (test code = 2563) 4 % ALPHA-2 (test code = 2557) 0.8 G/DL % ALPHA-2 (test code = 2564) 11 % BETA (test code = 2558) 0.9 G/DL % BETA (test code = 2565) 12 % GAMMA (test code = 2559) 1.2 G/DL % GAMMA (test code = 2566) 15 % PROTEIN, TOTAL (test code = 2229) 7.6 G/DL INTERPRETATION, SPEP: (test code = (NOTE) 2568) IMMUNOFIXATION + PROTEIN ELECTROPHORESIS, URINE [ADDED]2021-11-21 00:00:00 Test Item Value Reference Range Interpretation Comments PROTEIN, URINE, CONC. (test 19 MG/DL code = 2635) PROTEIN, URINE, 24 HR (test (NOTE) MG/24HR code = 2636) % ALBUMIN (test code = 2529) 66 % % ALPHA-1 (test code = 2530) 15 % % ALPHA-2 (test code = 2531) 7 % % BETA (test code = 2532) 8 % % GAMMA (test code = 2533) 4 % INTERPRETATION, UPEP: (test (NOTE) code = 2536) INTERPRETATION, GLADYS (IEP): (NOTE) (test code = 2525) IMMUNOFIXATION + PROTEIN ELECTROPHORESIS, URINE [ADDED]2021-11-21 00:00:00 Test Item Value Reference Range Interpretation Comments PROTEIN, URINE, CONC. (test 19 MG/DL code = 2635) PROTEIN, URINE, 24 HR (test (NOTE) MG/24HR code = 2636) % ALBUMIN (test code = 2529) 66 % % ALPHA-1 (test code = 2530) 15 % % ALPHA-2 (test code = 2531) 7 % % BETA (test code = 2532) 8 % % GAMMA (test code = 2533) 4 % INTERPRETATION, UPEP: (test (NOTE) code = 2536) INTERPRETATION, GLADYS (IEP): (NOTE) (test code = 2525) PROTEIN ELECTROPHORESIS, [id number] 00:00:00 Test Item Value Reference Range Interpretation Comments ALBUMIN (test code = 2554) 4.4 G/DL % ALBUMIN (test code = 2562) 58 % GLOBULIN (test code = 2555) 3.2 G/DL A/G RATIO (test code = 2561) 1.4 RATIO ALPHA-1 (test code = 2556) 0.3 G/DL % ALPHA-1 (test code = 2563) 4 % ALPHA-2 (test code = 2557) 0.8 G/DL % ALPHA-2 (test code = 2564) 11 % BETA (test code = 2558) 0.9 G/DL % BETA (test code = 2565) 12 % GAMMA (test code = 2559) 1.2 G/DL % GAMMA (test code = 2566) 15 % PROTEIN, TOTAL (test code = 2229) 7.6 G/DL INTERPRETATION, SPEP: (test code = (NOTE) 2568) PROTEIN ELECTROPHORESIS, [id number] 00:00:00 Test Item Value Reference Range Interpretation Comments ALBUMIN (test code = 2554) 4.4 G/DL % ALBUMIN (test code = 2562) 58 % GLOBULIN (test code = 2555) 3.2 G/DL A/G RATIO (test code = 2561) 1.4 RATIO ALPHA-1 (test code = 2556) 0.3 G/DL % ALPHA-1 (test code = 2563) 4 % ALPHA-2 (test code = 2557) 0.8 G/DL % ALPHA-2 (test code = 2564) 11 % BETA (test code = 2558) 0.9 G/DL % BETA (test code = 2565) 12 % GAMMA (test code = 2559) 1.2 G/DL % GAMMA (test code = 2566) 15 % PROTEIN, TOTAL (test code = 2229) 7.6 G/DL INTERPRETATION, SPEP: (test code = (NOTE) 2568) PROTEIN ELECTROPHORESIS, [id number] 00:00:00 Test Item Value Reference Range Interpretation Comments ALBUMIN (test code = 2554) 4.4 G/DL % ALBUMIN (test code = 2562) 58 % GLOBULIN (test code = 2555) 3.2 G/DL A/G RATIO (test code = 2561) 1.4 RATIO ALPHA-1 (test code = 2556) 0.3 G/DL % ALPHA-1 (test code = 2563) 4 % ALPHA-2 (test code = 2557) 0.8 G/DL % ALPHA-2 (test code = 2564) 11 % BETA (test code = 2558) 0.9 G/DL % BETA (test code = 2565) 12 % GAMMA (test code = 2559) 1.2 G/DL % GAMMA (test code = 2566) 15 % PROTEIN, TOTAL (test code = 2229) 7.6 G/DL INTERPRETATION, SPEP: (test code = (NOTE) 2568) IMMUNOFIXATION + PROTEIN ELECTROPHORESIS, URINE [ADDED]2021-11-21 00:00:00 Test Item Value Reference Range Interpretation Comments PROTEIN, URINE, CONC. (test 19 MG/DL code = 2635) PROTEIN, URINE, 24 HR (test (NOTE) MG/24HR code = 2636) % ALBUMIN (test code = 2529) 66 % % ALPHA-1 (test code = 2530) 15 % % ALPHA-2 (test code = 2531) 7 % % BETA (test code = 2532) 8 % % GAMMA (test code = 2533) 4 % INTERPRETATION, UPEP: (test (NOTE) code = 2536) INTERPRETATION, GLADYS (IEP): (NOTE) (test code = 2525) IMMUNOFIXATION + PROTEIN ELECTROPHORESIS, URINE [ADDED]2021-11-21 00:00:00 Test Item Value Reference Range Interpretation Comments PROTEIN, URINE, CONC. (test 19 MG/DL code = 2635) PROTEIN, URINE, 24 HR (test (NOTE) MG/24HR code = 2636) % ALBUMIN (test code = 2529) 66 % % ALPHA-1 (test code = 2530) 15 % % ALPHA-2 (test code = 2531) 7 % % BETA (test code = 2532) 8 % % GAMMA (test code = 2533) 4 % INTERPRETATION, UPEP: (test (NOTE) code = 2536) INTERPRETATION, GLADYS (IEP): (NOTE) (test code = 2525) PROTEIN ELECTROPHORESIS, [id number] 00:00:00 Test Item Value Reference Range Interpretation Comments ALBUMIN (test code = 2554) 4.4 G/DL % ALBUMIN (test code = 2562) 58 % GLOBULIN (test code = 2555) 3.2 G/DL A/G RATIO (test code = 2561) 1.4 RATIO ALPHA-1 (test code = 2556) 0.3 G/DL % ALPHA-1 (test code = 2563) 4 % ALPHA-2 (test code = 2557) 0.8 G/DL % ALPHA-2 (test code = 2564) 11 % BETA (test code = 2558) 0.9 G/DL % BETA (test code = 2565) 12 % GAMMA (test code = 2559) 1.2 G/DL % GAMMA (test code = 2566) 15 % PROTEIN, TOTAL (test code = 2229) 7.6 G/DL INTERPRETATION, SPEP: (test code = (NOTE) 2568) PROTEIN ELECTROPHORESIS, [id number] 00:00:00 Test Item Value Reference Range Interpretation Comments ALBUMIN (test code = 2554) 4.4 G/DL % ALBUMIN (test code = 2562) 58 % GLOBULIN (test code = 2555) 3.2 G/DL A/G RATIO (test code = 2561) 1.4 RATIO ALPHA-1 (test code = 2556) 0.3 G/DL % ALPHA-1 (test code = 2563) 4 % ALPHA-2 (test code = 2557) 0.8 G/DL % ALPHA-2 (test code = 2564) 11 % BETA (test code = 2558) 0.9 G/DL % BETA (test code = 2565) 12 % GAMMA (test code = 2559) 1.2 G/DL % GAMMA (test code = 2566) 15 % PROTEIN, TOTAL (test code = 2229) 7.6 G/DL INTERPRETATION, SPEP: (test code = (NOTE) 2568) IMMUNOFIXATION + PROTEIN ELECTROPHORESIS, URINE [ADDED]2021-11-21 00:00:00 Test Item Value Reference Range Interpretation Comments PROTEIN, URINE, CONC. (test 19 MG/DL code = 2635) PROTEIN, URINE, 24 HR (test (NOTE) MG/24HR code = 2636) % ALBUMIN (test code = 2529) 66 % % ALPHA-1 (test code = 2530) 15 % % ALPHA-2 (test code = 2531) 7 % % BETA (test code = 2532) 8 % % GAMMA (test code = 2533) 4 % INTERPRETATION, UPEP: (test (NOTE) code = 2536) INTERPRETATION, GLADYS (IEP): (NOTE) (test code = 2525) INTACT [id number] 08:45:13 Test Item Value Reference Range Interpretation Comments INTACT PTH (test code = 5005) 29 PG/ML 15-65 GAVIN NON-REFLEX TO [id number] 07:58:52 Test Item Value Reference Range Interpretation Comments ANTI-NUCLEAR NEGATIVE NEGATIVE Methodology is Indirect ANTIBODIES (test Immunofluor escent Assay code = 3506) (IFA) with a t itering system using He p2000 cells (Hep2 cells tra nsfected with SS-A/Ro). A pattern reported as SS- A is considered conf irmatory in the appropriate clinical context. ALBUMIN/CREATININE RATIO, URINE, [id number] 05:57:19 Test Item Value Reference Range Interpretation Comments CREATININE, URINE, 57.7 MG/DL NOT ESTAB CONC. (test code = 2072) ALBUMIN, URINE, 9.2 MG/DL Note: Test name is RANDOM (test code = changed to Urine Albumin 74776) from [employer] in in accordance with ADA and NKF Guidelines, and Albumin/Creatin ine ratio reference inter stef reflects those Guidelines. Gavin lytic methodology is unchanged. No r eference interval for Ra ndom Urine Albumin i s available. CALC ALBUMIN/CREAT, 159 MG/G <30 H RND (test code = 42391) HEMOGLOBIN [id number] 04:25:48 Test Item Value Reference Range Interpretation Comments HEMOGLOBIN A1c (test 7.5 % 4.2-5.6 H [employer]IC AN DIABETES code = 82637) ASSOCIATION IDELINES FOR HGB A1C: PREDIABETES/INC REASED RISK . . . . . . . 5.7 -6.4% DIAGNOSIS OF DI ABETES . . . . . . . . . >=6 .5% WITH CONFIRMATION OR APPROPRIATE SYMPTOMS NOTE: ASSAY MAY BE AFFECTED BY HEMOGLOBINOPATH IES (SICKLE CELL ANEMIA, S- C DISEASE, OTHERS) OR COLE FICIALLY LOWERED BY DECR EASED RED CELL SURVIVAL ( HEMOLYTIC ANEMIAS, BLOOD LOSS, ETC.). CONSIDER ALTERN ATE TESTING OR LABORATORY C ONSULTATION. VITAMIN D, 25 [id number] 03:46:24 Test Item Value Reference Range Interpretation Comments VITAMIN D, 25 OH 32 NG/ML SEE BELOW NOTE: 25-H YDROXYVITAMIN D (test code = 4958) ASSAY INC LUDES 25-HYDROXYVITAM IN D2 AND D3. METHODOLOGY IS CHEMILUMINESCEN T IMMUNOASSAY. INTERPRETIVE RA NGES PEDIATRIC (<17 YEARS) . . . . . . . . . . . NG/ML 20-100ADULT: IN SUFFICIENT . . . . . . . . . . . . . . NG/ML <20 SUBOP TIMAL . . . . . . . . . . . . . . . NG/ML 20-29 OPT IMAL . . . . . . . . . . . . . . . . . NG/ML 30-100 CBC W/AUTO DIFF WITH [id number] 03:33:33 Test Item Value Reference Range Interpretation Comments WBC (test code = 8.0 K/UL 3.5-11.0 1001) RBC (test code = 4.27 M/UL 3.80-5.40 1002) HEMOGLOBIN (test code 12.5 G/DL 11.5-15.5 = 1003) HEMATOCRIT (test code 35.2 % 34.0-45.0 = 1004) MCV (test code = 82.4 fL 80.0-99.0 1005) MCH (test code = 29.3 PG 25.0-33.0 1006) MCHC (test code = 35.5 G/DL 31.0-36.0 1007) RDW (test code = 13.8 % 11.5-15.0 1038) NEUTROPHILS (test 65.3 % code = 1008) LYMPHOCYTES (test 23.2 % code = 1010) MONOCYTES (test code 6.1 % = 1011) EOSINOPHILS (test 4.3 % code = 1012) BASOPHILS (test code 0.5 % = 1013) IMMATURE GRANYLOCYTES 0.6 % (test code = 1036) NUCLEATED RBCS (test 0.0 /100 WBC'S See_Comment [Aut omated code = 1065) message] The sy stem which generated this result transmitted reference range : 0.0. The refere nce range was not u sed to interpret th is result as normal/abnormal . PLATELET COUNT (test 294 K/UL 130-400 code = 1015) ABSOLUTE NEUTROPHILS 5.21 K/UL 1.50-7.50 (test code = 1066) ABSOLUTE LYMPHOCYTES 1.85 K/UL 1.00-4.00 (test code = 1067) ABSOLUTE MONOCYTES 0.49 K/UL 0.20-1.00 (test code = 1068) ABSOLUTE EOSINOPHILS 0.34 K/UL 0.00-0.50 (test code = 1040) ABSOLUTE BASOPHILS 0.04 K/UL 0.00-0.20 (test code = 1069) ABS IMMATURE 0.05 K/UL 0.00-0.10 GRANULOCYTES (test code = 1020) ABS NUCLEATED RBCS 0.00 K/UL 0.00-0.11 (test code = 02478) URINALYSIS W/REFLEX [id number] 03:17:08 Test Item Value Reference Range Interpretation Comments COLOR (test code = YELLOW YELLOW-STRAW 1501) APPEARANCE (test code = CLEAR CLEAR 1502) SPECIFIC GRAVITY (test 1.012 1.005-1.035 code = 1503) LEUKOCYTE ESTERASE 1+ NEGATIVE A (test code = 1504) NITRITE (test code = NEGATIVE NEGATIVE 1505) pH (test code = 1506) 6.5 5.0-9.0 PROTEIN (test code = TRACE NEGATIVE A 1507) GLUCOSE (test code = NEGATIVE NEGATIVE 1508) KETONES (test code = NEGATIVE NEGATIVE 1509) UROBILINOGEN (test code 0.2 MG/DL See_Comment [Au tomated message] = 1510) The system [employer] generated this result transmitted ref erence range: <=2.0. T he reference range was not used to int erpret this result as normal/abnormal . BILIRUBIN (test code = NEGATIVE NEGATIVE 1511) OCCULT BLOOD (test code NEGATIVE NEGATIVE = 1512) WHITE BLOOD CELLS (test 0-5 /HPF 0-5 code = 1513) RED BLOOD CELLS (test 0-2 /HPF 0-5 code = 1514) EPITHELIAL CELLS (test 0-5 /HPF 0-10 code = 84354) BACTERIA (test code = NONE SEEN NONE SEEN 1515) CASTS, HYALINE (test NONE SEEN NONE-TRACE code = 1517) [id number] 03:12:49 Test Item Value Reference Range Interpretation Comments MAGNESIUM (test code = 2226) 2.0 MG/DL 1.6-2.6 [id number] 03:12:49 Test Item Value Reference Range Interpretation Comments PHOSPHORUS (test code = 2227) 4.0 MG/DL 2.5-4.5 LIPID [id number] 02:43:54 Test Item Value Reference Range Interpretation Comments CHOLESTEROL (test 154 MG/DL <200 code = 2210) TRIGLYCERIDES (test 383 MG/DL <150 H code = 2232) HDL CHOLESTEROL (test 41 MG/DL >39 code = 2220) CALC LDL CHOL (test 67 MG/DL <100 NOTE: C ALCULATED LDL code = 2237) IS BASED ON CHRISTIAN-NICHOLS METHOD WHICHINCLUDES ADJUSTABLE TRIGLYCERIDE:VL DL CHOLESTEROL RAT IO.THIS FACTOR VARIES B Y MEASURED TRIGLY CERIDE AND NON-HDLCHOL ESTEROL CONCENTRATIONS WITH INCREASED CALCU LATED LDL SEENIN HIGH ER TRIGLYCERIDE OR LOWER NON-HDL SPECIME NS. FOR MOREINFORMATION , SEE CLIENT ANNOUNCE MENT AT [email or web address] [email or web address] RATIO LDL/HDL 1.63 RATIO <3.22 (test code = 2238) COMPREHENSIVE METABOLIC [id number] 02:43:54 Test Item Value Reference Range Interpretation Comments GLUCOSE (test code = 146 MG/DL 70-99 H 2216) BUN (test code = 29 MG/DL 6-20 H 2207) CREATININE (test 1.51 MG/DL 0.60-1.30 H EFFECTIVE code = 2214) 10/28/2021, [facility] HAS IMPLEMENTED THE NKF-ASN RECOMME NDED KD-EPI EGF R REFIT CALCULATI ON THAT DOES NOT INCLUDE A COEFFICIENT FOR RACE. FOR MORE INFORMATION, SE E ANNOUNCEMENT [email or web address] eGFR (2020 CKD-EPI) 40 ML/MIN/1.73 >60 L (test code = 02159) CALC BUN/CREAT (test 19 RATIO 6-28 code = 2235) SODIUM (test code = 136 MEQ/L 875-095 1537) POTASSIUM (test code 3.7 MEQ/L 3.5-5.4 = 2227) CHLORIDE (test code 94 MEQ/L 95-107 L = 2215) CARBON DIOXIDE (test 27 MEQ/L 19-31 code = 2206) CALCIUM (test code = 10.2 MG/DL 8.5-10.5 2208) PROTEIN, TOTAL (test 7.6 G/DL 6.1-8.3 code = 2229) ALBUMIN (test code = 4.8 G/DL 3.5-5.2 2200) CALC GLOBULIN (test 2.8 G/DL 1.9-3.7 code = 2240) CALC A/G RATIO (test 1.7 RATIO 1.0-2.6 code = 2234) BILIRUBIN, TOTAL <0.2 MG/DL See_Comment [Automated message] (test code = 2206) The syste m which generated this result transmit nati reference range : <=1.2. The refe rence range was not u sed to interpret th is result as normal/abnormal . ALKALINE PHOSPHATASE 90 U/L 40-136 (test code = 2203) AST (test code = 18 U/L 9-40 2217) ALT (test code = 15 U/L 5-40 2218) URIC [id number] 02:43:54 Test Item Value Reference Range Interpretation Comments URIC ACID (test code = 3) 5.3 MG/DL 2.7-6.1 HEMOGLOBIN [id number] 00:00:00 Test Item Value Reference Range Interpretation Comments HEMOGLOBIN A1c (test code = 79689) 7.5 % LIPID [id number] 00:00:00 Test Item Value Reference Range Interpretation Comments CHOLESTEROL (test code = 2210) 154 MG/DL TRIGLYCERIDES (test code = 2232) 383 MG/DL HDL CHOLESTEROL (test code = 2220) 41 MG/DL CALC LDL CHOL (test code = 2237) 67 MG/DL RISK RATIO LDL/HDL (test code = 1.63 RATIO 8) LIPID [id number] 00:00:00 Test Item Value Reference Range Interpretation Comments CHOLESTEROL (test code = 2210) 154 MG/DL TRIGLYCERIDES (test code = 2232) 383 MG/DL HDL CHOLESTEROL (test code = 2220) 41 MG/DL CALC LDL CHOL (test code = 2237) 67 MG/DL RISK RATIO LDL/HDL (test code = 1.63 RATIO 2238) COMPREHENSIVE METABOLIC [id number] 00:00:00 Test Item Value Reference Range Interpretation Comments GLUCOSE (test code = 2217) 146 MG/DL BUN (test code = 2208) 29 MG/DL CREATININE (test code = 2214) 1.51 MG/DL eGFR (2020 CKD-EPI) (test code 40 ML/MIN/1.73 = 63370) CALC BUN/CREAT (test code = 19 RATIO 2235) SODIUM (test code = 2231) 136 MEQ/L POTASSIUM (test code = 2228) 3.7 MEQ/L CHLORIDE (test code = 2215) 94 MEQ/L CARBON DIOXIDE (test code = 27 MEQ/L 2205) CALCIUM (test code = 2209) 10.2 MG/DL PROTEIN, TOTAL (test code = 7.6 G/DL 2228) ALBUMIN (test code = 2201) 4.8 G/DL CALC GLOBULIN (test code = 2.8 G/DL 2240) CALC A/G RATIO (test code = 1.7 RATIO 2234) BILIRUBIN, TOTAL (test code = <0.2 MG/DL 2206) ALKALINE PHOSPHATASE (test 90 U/L code = 2204) AST (test code = 2218) 18 U/L ALT (test code = 2219) 15 U/L COMPREHENSIVE METABOLIC [id number] 00:00:00 Test Item Value Reference Range Interpretation Comments GLUCOSE (test code = 2217) 146 MG/DL BUN (test code = 2208) 29 MG/DL CREATININE (test code = 2214) 1.51 MG/DL eGFR (2020 CKD-EPI) (test code 40 ML/MIN/1.73 = 35845) CALC BUN/CREAT (test code = 19 RATIO 2235) SODIUM (test code = 2231) 136 MEQ/L POTASSIUM (test code = 2228) 3.7 MEQ/L CHLORIDE (test code = 2215) 94 MEQ/L CARBON DIOXIDE (test code = 27 MEQ/L 220) CALCIUM (test code = 2209) 10.2 MG/DL PROTEIN, TOTAL (test code = 7.6 G/DL 222) ALBUMIN (test code = 2201) 4.8 G/DL CALC GLOBULIN (test code = 2.8 G/DL 2240) CALC A/G RATIO (test code = 1.7 RATIO 2234) BILIRUBIN, TOTAL (test code = <0.2 MG/DL 2207) ALKALINE PHOSPHATASE (test 90 U/L code = 2204) AST (test code = 2218) 18 U/L ALT (test code = 2219) 15 U/L [id number] 00:00:00 Test Item Value Reference Range Interpretation Comments MAGNESIUM (test code = 2226) 2.0 MG/DL [id number] 00:00:00 Test Item Value Reference Range Interpretation Comments MAGNESIUM (test code = 2226) 2.0 MG/DL [id number] 00:00:00 Test Item Value Reference Range Interpretation Comments MAGNESIUM (test code = 2226) 2.0 MG/DL [id number] 00:00:00 Test Item Value Reference Range Interpretation Comments PHOSPHORUS (test code = 2227) 4.0 MG/DL [id number] 00:00:00 Test Item Value Reference Range Interpretation Comments PHOSPHORUS (test code = 2227) 4.0 MG/DL URIC [id number] 00:00:00 Test Item Value Reference Range Interpretation Comments URIC ACID (test code = 2233) 5.3 MG/DL URIC [id number] 00:00:00 Test Item Value Reference Range Interpretation Comments URIC ACID (test code = 2233) 5.3 MG/DL URINALYSIS W/REFLEX [id number] 00:00:00 Test Item Value Reference Range Interpretation Comments COLOR (test code = 1501) YELLOW APPEARANCE (test code = 1502) CLEAR SPECIFIC GRAVITY (test code = 1503) 1.012 LEUKOCYTE ESTERASE (test code = 1+ 1504) NITRITE (test code = 1505) NEGATIVE pH (test code = 1506) 6.5 PROTEIN (test code = 1507) TRACE GLUCOSE (test code = 1508) NEGATIVE KETONES (test code = 1509) NEGATIVE UROBILINOGEN (test code = 1510) 0.2 MG/DL BILIRUBIN (test code = 1511) NEGATIVE OCCULT BLOOD (test code = 1512) NEGATIVE WHITE BLOOD CELLS (test code = 0-5 /HPF 1513) RED BLOOD CELLS (test code = 1514) 0-2 /HPF EPITHELIAL CELLS (test code = 0-5 /HPF 68178) BACTERIA (test code = 1515) NONE SEEN CASTS, HYALINE (test code = 1517) NONE SEEN URINALYSIS W/REFLEX [id number] 00:00:00 Test Item Value Reference Range Interpretation Comments COLOR (test code = 1501) YELLOW APPEARANCE (test code = 1502) CLEAR SPECIFIC GRAVITY (test code = 1503) 1.012 LEUKOCYTE ESTERASE (test code = 1+ 1504) NITRITE (test code = 1505) NEGATIVE pH (test code = 1506) 6.5 PROTEIN (test code = 1507) TRACE GLUCOSE (test code = 1508) NEGATIVE KETONES (test code = 1509) NEGATIVE UROBILINOGEN (test code = 1510) 0.2 MG/DL BILIRUBIN (test code = 1511) NEGATIVE OCCULT BLOOD (test code = 1512) NEGATIVE WHITE BLOOD CELLS (test code = 0-5 /HPF 1513) RED BLOOD CELLS (test code = 1514) 0-2 /HPF EPITHELIAL CELLS (test code = 0-5 /HPF 08587) BACTERIA (test code = 1515) NONE SEEN CASTS, HYALINE (test code = 1517) NONE SEEN MICROALBUMIN/CREATININE, RANDOM AND [id number] 00:00:00 Test Item Value Reference Range Interpretation Comments CREATININE, URINE, CONC. (test 57.7 MG/DL code = 2072) ALBUMIN, URINE, RANDOM (test code 9.2 MG/DL = 98894) CALC ALBUMIN/CREAT, RND (test code 159 MG/G = 11241) MICROALBUMIN/CREATININE, RANDOM AND [id number] 00:00:00 Test Item Value Reference Range Interpretation Comments CREATININE, URINE, CONC. (test 57.7 MG/DL code = 2072) ALBUMIN, URINE, RANDOM (test code 9.2 MG/DL = 25513) CALC ALBUMIN/CREAT, RND (test code 159 MG/G = 05254) GAVIN NON-REFLEX TO [id number] 00:00:00 Test Item Value Reference Range Interpretation Comments ANTI-NUCLEAR ANTIBODIES (test code = NEGATIVE 3506) GAVIN NON-REFLEX TO [id number] 00:00:00 Test Item Value Reference Range Interpretation Comments ANTI-NUCLEAR ANTIBODIES (test code = NEGATIVE 3506) VITAMIN D, 25 [id number] 00:00:00 Test Item Value Reference Range Interpretation Comments VITAMIN D, 25 OH (test code = 4958) 32 NG/ML VITAMIN D, 25 [id number] 00:00:00 Test Item Value Reference Range Interpretation Comments VITAMIN D, 25 OH (test code = 4958) 32 NG/ML INTACT [id number] 00:00:00 Test Item Value Reference Range Interpretation Comments INTACT PTH (test code = 5005) 29 PG/ML INTACT [id number] 00:00:00 Test Item Value Reference Range Interpretation Comments INTACT PTH (test code = 5005) 29 PG/ML INTACT [id number] 00:00:00 Test Item Value Reference Range Interpretation Comments INTACT PTH (test code = 5005) 29 PG/ML CBC W/AUTO [id number] 00:00:00 Test Item Value Reference Range Interpretation Comments WBC (test code = 1001) 8.0 K/UL RBC (test code = 1002) 4.27 M/UL HEMOGLOBIN (test code = 1003) 12.5 G/DL HEMATOCRIT (test code = 1004) 35.2 % MCV (test code = 1005) 82.4 fL MCH (test code = 1006) 29.3 PG MCHC (test code = 1007) 35.5 G/DL RDW (test code = 1038) 13.8 % NEUTROPHILS (test code = 1008) 65.3 % LYMPHOCYTES (test code = 1010) 23.2 % MONOCYTES (test code = 1011) 6.1 % EOSINOPHILS (test code = 1012) 4.3 % BASOPHILS (test code = 1013) 0.5 % IMMATURE GRANYLOCYTES (test 0.6 % code = 1036) NUCLEATED RBCS (test code = 0.0 /100WBC'S 1065) PLATELET COUNT (test code = 294 K/UL 1015) ABSOLUTE NEUTROPHILS (test code 5.21 K/UL = 1066) ABSOLUTE LYMPHOCYTES (test code 1.85 K/UL = 1067) ABSOLUTE MONOCYTES (test code = 0.49 K/UL 1068) ABSOLUTE EOSINOPHILS (test code 0.34 K/UL = 1040) ABSOLUTE BASOPHILS (test code = 0.04 K/UL 1069) ABS IMMATURE GRANULOCYTES (test 0.05 K/UL code = 1020) ABS NUCLEATED RBCS (test code = 0.00 K/UL 66391) CBC W/AUTO [id number] 00:00:00 Test Item Value Reference Range Interpretation Comments WBC (test code = 1001) 8.0 K/UL RBC (test code = 1002) 4.27 M/UL HEMOGLOBIN (test code = 1003) 12.5 G/DL HEMATOCRIT (test code = 1004) 35.2 % MCV (test code = 1005) 82.4 fL MCH (test code = 1006) 29.3 PG MCHC (test code = 1007) 35.5 G/DL RDW (test code = 1038) 13.8 % NEUTROPHILS (test code = 1008) 65.3 % LYMPHOCYTES (test code = 1010) 23.2 % MONOCYTES (test code = 1011) 6.1 % EOSINOPHILS (test code = 1012) 4.3 % BASOPHILS (test code = 1013) 0.5 % IMMATURE GRANYLOCYTES (test 0.6 % code = 1036) NUCLEATED RBCS (test code = 0.0 /100WBC'S 1065) PLATELET COUNT (test code = 294 K/UL 1015) ABSOLUTE NEUTROPHILS (test code 5.21 K/UL = 1066) ABSOLUTE LYMPHOCYTES (test code 1.85 K/UL = 1067) ABSOLUTE MONOCYTES (test code = 0.49 K/UL 1068) ABSOLUTE EOSINOPHILS (test code 0.34 K/UL = 1040) ABSOLUTE BASOPHILS (test code = 0.04 K/UL 1069) ABS IMMATURE GRANULOCYTES (test 0.05 K/UL code = 1020) ABS NUCLEATED RBCS (test code = 0.00 K/UL 71099) CBC W/AUTO [id number] 00:00:00 Test Item Value Reference Range Interpretation Comments WBC (test code = 1001) 8.0 K/UL RBC (test code = 1002) 4.27 M/UL HEMOGLOBIN (test code = 1003) 12.5 G/DL HEMATOCRIT (test code = 1004) 35.2 % MCV (test code = 1005) 82.4 fL MCH (test code = 1006) 29.3 PG MCHC (test code = 1007) 35.5 G/DL RDW (test code = 1038) 13.8 % NEUTROPHILS (test code = 1008) 65.3 % LYMPHOCYTES (test code = 1010) 23.2 % MONOCYTES (test code = 1011) 6.1 % EOSINOPHILS (test code = 1012) 4.3 % BASOPHILS (test code = 1013) 0.5 % IMMATURE GRANYLOCYTES (test 0.6 % code = 1036) NUCLEATED RBCS (test code = 0.0 /100WBC'S 1065) PLATELET COUNT (test code = 294 K/UL 1015) ABSOLUTE NEUTROPHILS (test code 5.21 K/UL = 1066) ABSOLUTE LYMPHOCYTES (test code 1.85 K/UL = 1067) ABSOLUTE MONOCYTES (test code = 0.49 K/UL 1068) ABSOLUTE EOSINOPHILS (test code 0.34 K/UL = 1040) ABSOLUTE BASOPHILS (test code = 0.04 K/UL 1069) ABS IMMATURE GRANULOCYTES (test 0.05 K/UL code = 1020) ABS NUCLEATED RBCS (test code = 0.00 K/UL 38074) HEMOGLOBIN [id number] 00:00:00 Test Item Value Reference Range Interpretation Comments HEMOGLOBIN A1c (test code = 43813) 7.5 % HEMOGLOBIN [id number] 00:00:00 Test Item Value Reference Range Interpretation Comments HEMOGLOBIN A1c (test code = 03935) 7.5 % HEMOGLOBIN [id number] 00:00:00 Test Item Value Reference Range Interpretation Comments HEMOGLOBIN A1c (test code = 37575) 7.5 % LIPID [id number] 00:00:00 Test Item Value Reference Range Interpretation Comments CHOLESTEROL (test code = 2210) 154 MG/DL TRIGLYCERIDES (test code = 2232) 383 MG/DL HDL CHOLESTEROL (test code = 2220) 41 MG/DL CALC LDL CHOL (test code = 2237) 67 MG/DL RISK RATIO LDL/HDL (test code = 1.63 RATIO 2238) LIPID [id number] 00:00:00 Test Item Value Reference Range Interpretation Comments CHOLESTEROL (test code = 2210) 154 MG/DL TRIGLYCERIDES (test code = 2232) 383 MG/DL HDL CHOLESTEROL (test code = 2220) 41 MG/DL CALC LDL CHOL (test code = 2237) 67 MG/DL RISK RATIO LDL/HDL (test code = 1.63 RATIO 2238) COMPREHENSIVE METABOLIC [id number] 00:00:00 Test Item Value Reference Range Interpretation Comments GLUCOSE (test code = 2217) 146 MG/DL BUN (test code = 2208) 29 MG/DL CREATININE (test code = 2214) 1.51 MG/DL eGFR (2020 CKD-EPI) (test code 40 ML/MIN/1.73 = 47442) CALC BUN/CREAT (test code = 19 RATIO 2235) SODIUM (test code = 2231) 136 MEQ/L POTASSIUM (test code = 2228) 3.7 MEQ/L CHLORIDE (test code = 2215) 94 MEQ/L CARBON DIOXIDE (test code = 27 MEQ/L 2206) CALCIUM (test code = 2209) 10.2 MG/DL PROTEIN, TOTAL (test code = 7.6 G/DL 2228) ALBUMIN (test code = 2201) 4.8 G/DL CALC GLOBULIN (test code = 2.8 G/DL 2240) CALC A/G RATIO (test code = 1.7 RATIO 2234) BILIRUBIN, TOTAL (test code = <0.2 MG/DL 2206) ALKALINE PHOSPHATASE (test 90 U/L code = 2204) AST (test code = 2218) 18 U/L ALT (test code = 2219) 15 U/L COMPREHENSIVE METABOLIC [id number] 00:00:00 Test Item Value Reference Range Interpretation Comments GLUCOSE (test code = 2217) 146 MG/DL BUN (test code = 2208) 29 MG/DL CREATININE (test code = 2214) 1.51 MG/DL eGFR (2020 CKD-EPI) (test code 40 ML/MIN/1.73 = 17440) CALC BUN/CREAT (test code = 19 RATIO 2235) SODIUM (test code = 2231) 136 MEQ/L POTASSIUM (test code = 2228) 3.7 MEQ/L CHLORIDE (test code = 2215) 94 MEQ/L CARBON DIOXIDE (test code = 27 MEQ/L 2206) CALCIUM (test code = 2209) 10.2 MG/DL PROTEIN, TOTAL (test code = 7.6 G/DL 2228) ALBUMIN (test code = 2201) 4.8 G/DL CALC GLOBULIN (test code = 2.8 G/DL 2240) CALC A/G RATIO (test code = 1.7 RATIO 2234) BILIRUBIN, TOTAL (test code = <0.2 MG/DL 2206) ALKALINE PHOSPHATASE (test 90 U/L code = 2204) AST (test code = 2218) 18 U/L ALT (test code = 2219) 15 U/L [id number] 00:00:00 Test Item Value Reference Range Interpretation Comments MAGNESIUM (test code = 2226) 2.0 MG/DL [id number] 00:00:00 Test Item Value Reference Range Interpretation Comments MAGNESIUM (test code = 2226) 2.0 MG/DL [id number] 00:00:00 Test Item Value Reference Range Interpretation Comments MAGNESIUM (test code = 2226) 2.0 MG/DL [id number] 00:00:00 Test Item Value Reference Range Interpretation Comments PHOSPHORUS (test code = 2227) 4.0 MG/DL [id number] 00:00:00 Test Item Value Reference Range Interpretation Comments PHOSPHORUS (test code = 2227) 4.0 MG/DL URIC [id number] 00:00:00 Test Item Value Reference Range Interpretation Comments URIC ACID (test code = 2233) 5.3 MG/DL URIC [id number] 00:00:00 Test Item Value Reference Range Interpretation Comments URIC ACID (test code = 2233) 5.3 MG/DL URINALYSIS W/REFLEX [id number] 00:00:00 Test Item Value Reference Range Interpretation Comments COLOR (test code = 1501) YELLOW APPEARANCE (test code = 1502) CLEAR SPECIFIC GRAVITY (test code = 1503) 1.012 LEUKOCYTE ESTERASE (test code = 1+ 1504) NITRITE (test code = 1505) NEGATIVE pH (test code = 1506) 6.5 PROTEIN (test code = 1507) TRACE GLUCOSE (test code = 1508) NEGATIVE KETONES (test code = 1509) NEGATIVE UROBILINOGEN (test code = 1510) 0.2 MG/DL BILIRUBIN (test code = 1511) NEGATIVE OCCULT BLOOD (test code = 1512) NEGATIVE WHITE BLOOD CELLS (test code = 0-5 /HPF 1513) RED BLOOD CELLS (test code = 1514) 0-2 /HPF EPITHELIAL CELLS (test code = 0-5 /HPF 29133) BACTERIA (test code = 1515) NONE SEEN CASTS, HYALINE (test code = 1517) NONE SEEN URINALYSIS W/REFLEX [id number] 00:00:00 Test Item Value Reference Range Interpretation Comments COLOR (test code = 1501) YELLOW APPEARANCE (test code = 1502) CLEAR SPECIFIC GRAVITY (test code = 1503) 1.012 LEUKOCYTE ESTERASE (test code = 1+ 1504) NITRITE (test code = 1505) NEGATIVE pH (test code = 1506) 6.5 PROTEIN (test code = 1507) TRACE GLUCOSE (test code = 1508) NEGATIVE KETONES (test code = 1509) NEGATIVE UROBILINOGEN (test code = 1510) 0.2 MG/DL BILIRUBIN (test code = 1511) NEGATIVE OCCULT BLOOD (test code = 1512) NEGATIVE WHITE BLOOD CELLS (test code = 0-5 /HPF 1513) RED BLOOD CELLS (test code = 1514) 0-2 /HPF EPITHELIAL CELLS (test code = 0-5 /HPF 82618) BACTERIA (test code = 1515) NONE SEEN CASTS, HYALINE (test code = 1517) NONE SEEN MICROALBUMIN/CREATININE, RANDOM AND [id number] 00:00:00 Test Item Value Reference Range Interpretation Comments CREATININE, URINE, CONC. (test 57.7 MG/DL code = 2072) ALBUMIN, URINE, RANDOM (test code 9.2 MG/DL = 89233) CALC ALBUMIN/CREAT, RND (test code 159 MG/G = 62918) MICROALBUMIN/CREATININE, RANDOM AND [id number] 00:00:00 Test Item Value Reference Range Interpretation Comments CREATININE, URINE, CONC. (test 57.7 MG/DL code = 2072) ALBUMIN, URINE, RANDOM (test code 9.2 MG/DL = 61784) CALC ALBUMIN/CREAT, RND (test code 159 MG/G = 83793) GAVIN NON-REFLEX TO [id number] 00:00:00 Test Item Value Reference Range Interpretation Comments ANTI-NUCLEAR ANTIBODIES (test code = NEGATIVE 3506) GAVIN NON-REFLEX TO [id number] 00:00:00 Test Item Value Reference Range Interpretation Comments ANTI-NUCLEAR ANTIBODIES (test code = NEGATIVE 3506) VITAMIN D, 25 [id number] 00:00:00 Test Item Value Reference Range Interpretation Comments VITAMIN D, 25 OH (test code = 4958) 32 NG/ML VITAMIN D, 25 [id number] 00:00:00 Test Item Value Reference Range Interpretation Comments VITAMIN D, 25 OH (test code = 4958) 32 NG/ML INTACT [id number] 00:00:00 Test Item Value Reference Range Interpretation Comments INTACT PTH (test code = 5005) 29 PG/ML INTACT [id number] 00:00:00 Test Item Value Reference Range Interpretation Comments INTACT PTH (test code = 5005) 29 PG/ML INTACT [id number] 00:00:00 Test Item Value Reference Range Interpretation Comments INTACT PTH (test code = 5005) 29 PG/ML CBC W/AUTO [id number] 00:00:00 Test Item Value Reference Range Interpretation Comments WBC (test code = 1001) 8.0 K/UL RBC (test code = 1002) 4.27 M/UL HEMOGLOBIN (test code = 1003) 12.5 G/DL HEMATOCRIT (test code = 1004) 35.2 % MCV (test code = 1005) 82.4 fL MCH (test code = 1006) 29.3 PG MCHC (test code = 1007) 35.5 G/DL RDW (test code = 1038) 13.8 % NEUTROPHILS (test code = 1008) 65.3 % LYMPHOCYTES (test code = 1010) 23.2 % MONOCYTES (test code = 1011) 6.1 % EOSINOPHILS (test code = 1012) 4.3 % BASOPHILS (test code = 1013) 0.5 % IMMATURE GRANYLOCYTES (test 0.6 % code = 1036) NUCLEATED RBCS (test code = 0.0 /100WBC'S 1065) PLATELET COUNT (test code = 294 K/UL 1015) ABSOLUTE NEUTROPHILS (test code 5.21 K/UL = 1066) ABSOLUTE LYMPHOCYTES (test code 1.85 K/UL = 1067) ABSOLUTE MONOCYTES (test code = 0.49 K/UL 1068) ABSOLUTE EOSINOPHILS (test code 0.34 K/UL = 1040) ABSOLUTE BASOPHILS (test code = 0.04 K/UL 1069) ABS IMMATURE GRANULOCYTES (test 0.05 K/UL code = 1020) ABS NUCLEATED RBCS (test code = 0.00 K/UL 47350) CBC W/AUTO [id number] 00:00:00 Test Item Value Reference Range Interpretation Comments WBC (test code = 1001) 8.0 K/UL RBC (test code = 1002) 4.27 M/UL HEMOGLOBIN (test code = 1003) 12.5 G/DL HEMATOCRIT (test code = 1004) 35.2 % MCV (test code = 1005) 82.4 fL MCH (test code = 1006) 29.3 PG MCHC (test code = 1007) 35.5 G/DL RDW (test code = 1038) 13.8 % NEUTROPHILS (test code = 1008) 65.3 % LYMPHOCYTES (test code = 1010) 23.2 % MONOCYTES (test code = 1011) 6.1 % EOSINOPHILS (test code = 1012) 4.3 % BASOPHILS (test code = 1013) 0.5 % IMMATURE GRANYLOCYTES (test 0.6 % code = 1036) NUCLEATED RBCS (test code = 0.0 /100WBC'S 1065) PLATELET COUNT (test code = 294 K/UL 1015) ABSOLUTE NEUTROPHILS (test code 5.21 K/UL = 1066) ABSOLUTE LYMPHOCYTES (test code 1.85 K/UL = 1067) ABSOLUTE MONOCYTES (test code = 0.49 K/UL 1068) ABSOLUTE EOSINOPHILS (test code 0.34 K/UL = 1040) ABSOLUTE BASOPHILS (test code = 0.04 K/UL 1069) ABS IMMATURE GRANULOCYTES (test 0.05 K/UL code = 1020) ABS NUCLEATED RBCS (test code = 0.00 K/UL 94914) CBC W/AUTO [id number] 00:00:00 Test Item Value Reference Range Interpretation Comments WBC (test code = 1001) 8.0 K/UL RBC (test code = 1002) 4.27 M/UL HEMOGLOBIN (test code = 1003) 12.5 G/DL HEMATOCRIT (test code = 1004) 35.2 % MCV (test code = 1005) 82.4 fL MCH (test code = 1006) 29.3 PG MCHC (test code = 1007) 35.5 G/DL RDW (test code = 1038) 13.8 % NEUTROPHILS (test code = 1008) 65.3 % LYMPHOCYTES (test code = 1010) 23.2 % MONOCYTES (test code = 1011) 6.1 % EOSINOPHILS (test code = 1012) 4.3 % BASOPHILS (test code = 1013) 0.5 % IMMATURE GRANYLOCYTES (test 0.6 % code = 1036) NUCLEATED RBCS (test code = 0.0 /100WBC'S 1065) PLATELET COUNT (test code = 294 K/UL 1015) ABSOLUTE NEUTROPHILS (test code 5.21 K/UL = 1066) ABSOLUTE LYMPHOCYTES (test code 1.85 K/UL = 1067) ABSOLUTE MONOCYTES (test code = 0.49 K/UL 1068) ABSOLUTE EOSINOPHILS (test code 0.34 K/UL = 1040) ABSOLUTE BASOPHILS (test code = 0.04 K/UL 1069) ABS IMMATURE GRANULOCYTES (test 0.05 K/UL code = 1020) ABS NUCLEATED RBCS (test code = 0.00 K/UL 70064) HEMOGLOBIN [id number] 00:00:00 Test Item Value Reference Range Interpretation Comments HEMOGLOBIN A1c (test code = 32959) 7.5 % HEMOGLOBIN [id number] 00:00:00 Test Item Value Reference Range Interpretation Comments HEMOGLOBIN A1c (test code = 85672) 7.5 % HEMOGLOBIN [id number] 00:00:00 Test Item Value Reference Range Interpretation Comments HEMOGLOBIN A1c (test code = 69874) 7.5 % LIPID [id number] 00:00:00 Test Item Value Reference Range Interpretation Comments CHOLESTEROL (test code = 2210) 154 MG/DL TRIGLYCERIDES (test code = 2232) 383 MG/DL HDL CHOLESTEROL (test code = 2220) 41 MG/DL CALC LDL CHOL (test code = 2237) 67 MG/DL RISK RATIO LDL/HDL (test code = 1.63 RATIO 2238) LIPID [id number] 00:00:00 Test Item Value Reference Range Interpretation Comments CHOLESTEROL (test code = 2210) 154 MG/DL TRIGLYCERIDES (test code = 2232) 383 MG/DL HDL CHOLESTEROL (test code = 2220) 41 MG/DL CALC LDL CHOL (test code = 2237) 67 MG/DL RISK RATIO LDL/HDL (test code = 1.63 RATIO 2238) COMPREHENSIVE METABOLIC [id number] 00:00:00 Test Item Value Reference Range Interpretation Comments GLUCOSE (test code = 2217) 146 MG/DL BUN (test code = 2208) 29 MG/DL CREATININE (test code = 2214) 1.51 MG/DL eGFR (2020 CKD-EPI) (test code 40 ML/MIN/1.73 = 32566) CALC BUN/CREAT (test code = 19 RATIO 2235) SODIUM (test code = 2231) 136 MEQ/L POTASSIUM (test code = 2228) 3.7 MEQ/L CHLORIDE (test code = 2215) 94 MEQ/L CARBON DIOXIDE (test code = 27 MEQ/L 220) CALCIUM (test code = 2209) 10.2 MG/DL PROTEIN, TOTAL (test code = 7.6 G/DL 222) ALBUMIN (test code = 2201) 4.8 G/DL CALC GLOBULIN (test code = 2.8 G/DL 2240) CALC A/G RATIO (test code = 1.7 RATIO 2234) BILIRUBIN, TOTAL (test code = <0.2 MG/DL 2206) ALKALINE PHOSPHATASE (test 90 U/L code = 2204) AST (test code = 2218) 18 U/L ALT (test code = 2219) 15 U/L COMPREHENSIVE METABOLIC [id number] 00:00:00 Test Item Value Reference Range Interpretation Comments GLUCOSE (test code = 2217) 146 MG/DL BUN (test code = 2208) 29 MG/DL CREATININE (test code = 2214) 1.51 MG/DL eGFR (2020 CKD-EPI) (test code 40 ML/MIN/1.73 = 96694) CALC BUN/CREAT (test code = 19 RATIO 2235) SODIUM (test code = 2231) 136 MEQ/L POTASSIUM (test code = 2228) 3.7 MEQ/L CHLORIDE (test code = 2215) 94 MEQ/L CARBON DIOXIDE (test code = 27 MEQ/L 2205) CALCIUM (test code = 2209) 10.2 MG/DL PROTEIN, TOTAL (test code = 7.6 G/DL 2228) ALBUMIN (test code = 2201) 4.8 G/DL CALC GLOBULIN (test code = 2.8 G/DL 2240) CALC A/G RATIO (test code = 1.7 RATIO 2234) BILIRUBIN, TOTAL (test code = <0.2 MG/DL 2206) ALKALINE PHOSPHATASE (test 90 U/L code = 2204) AST (test code = 2218) 18 U/L ALT (test code = 2219) 15 U/L [id number] 00:00:00 Test Item Value Reference Range Interpretation Comments MAGNESIUM (test code = 2226) 2.0 MG/DL [id number] 00:00:00 Test Item Value Reference Range Interpretation Comments MAGNESIUM (test code = 2226) 2.0 MG/DL [id number] 00:00:00 Test Item Value Reference Range Interpretation Comments MAGNESIUM (test code = 2226) 2.0 MG/DL [id number] 00:00:00 Test Item Value Reference Range Interpretation Comments PHOSPHORUS (test code = 2227) 4.0 MG/DL [id number] 00:00:00 Test Item Value Reference Range Interpretation Comments PHOSPHORUS (test code = 2227) 4.0 MG/DL URIC [id number] 00:00:00 Test Item Value Reference Range Interpretation Comments URIC ACID (test code = 2233) 5.3 MG/DL URIC [id number] 00:00:00 Test Item Value Reference Range Interpretation Comments URIC ACID (test code = 2233) 5.3 MG/DL URINALYSIS W/REFLEX [id number] 00:00:00 Test Item Value Reference Range Interpretation Comments COLOR (test code = 1501) YELLOW APPEARANCE (test code = 1502) CLEAR SPECIFIC GRAVITY (test code = 1503) 1.012 LEUKOCYTE ESTERASE (test code = 1+ 1504) NITRITE (test code = 1505) NEGATIVE pH (test code = 1506) 6.5 PROTEIN (test code = 1507) TRACE GLUCOSE (test code = 1508) NEGATIVE KETONES (test code = 1509) NEGATIVE UROBILINOGEN (test code = 1510) 0.2 MG/DL BILIRUBIN (test code = 1511) NEGATIVE OCCULT BLOOD (test code = 1512) NEGATIVE WHITE BLOOD CELLS (test code = 0-5 /HPF 1513) RED BLOOD CELLS (test code = 1514) 0-2 /HPF EPITHELIAL CELLS (test code = 0-5 /HPF 55645) BACTERIA (test code = 1515) NONE SEEN CASTS, HYALINE (test code = 1517) NONE SEEN URINALYSIS W/REFLEX [id number] 00:00:00 Test Item Value Reference Range Interpretation Comments COLOR (test code = 1501) YELLOW APPEARANCE (test code = 1502) CLEAR SPECIFIC GRAVITY (test code = 1503) 1.012 LEUKOCYTE ESTERASE (test code = 1+ 1504) NITRITE (test code = 1505) NEGATIVE pH (test code = 1506) 6.5 PROTEIN (test code = 1507) TRACE GLUCOSE (test code = 1508) NEGATIVE KETONES (test code = 1509) NEGATIVE UROBILINOGEN (test code = 1510) 0.2 MG/DL BILIRUBIN (test code = 1511) NEGATIVE OCCULT BLOOD (test code = 1512) NEGATIVE WHITE BLOOD CELLS (test code = 0-5 /HPF 1513) RED BLOOD CELLS (test code = 1514) 0-2 /HPF EPITHELIAL CELLS (test code = 0-5 /HPF 34294) BACTERIA (test code = 1515) NONE SEEN CASTS, HYALINE (test code = 1517) NONE SEEN MICROALBUMIN/CREATININE, RANDOM AND [id number] 00:00:00 Test Item Value Reference Range Interpretation Comments CREATININE, URINE, CONC. (test 57.7 MG/DL code = 2072) ALBUMIN, URINE, RANDOM (test code 9.2 MG/DL = 83999) CALC ALBUMIN/CREAT, RND (test code 159 MG/G = 58172) MICROALBUMIN/CREATININE, RANDOM AND [id number] 00:00:00 Test Item Value Reference Range Interpretation Comments CREATININE, URINE, CONC. (test 57.7 MG/DL code = 2072) ALBUMIN, URINE, RANDOM (test code 9.2 MG/DL = 47958) CALC ALBUMIN/CREAT, RND (test code 159 MG/G = 41466) GAVIN NON-REFLEX TO [id number] 00:00:00 Test Item Value Reference Range Interpretation Comments ANTI-NUCLEAR ANTIBODIES (test code = NEGATIVE 3506) GAVIN NON-REFLEX TO [id number] 00:00:00 Test Item Value Reference Range Interpretation Comments ANTI-NUCLEAR ANTIBODIES (test code = NEGATIVE 3506) VITAMIN D, 25 [id number] 00:00:00 Test Item Value Reference Range Interpretation Comments VITAMIN D, 25 OH (test code = 4958) 32 NG/ML VITAMIN D, 25 [id number] 00:00:00 Test Item Value Reference Range Interpretation Comments VITAMIN D, 25 OH (test code = 4958) 32 NG/ML INTACT [id number] 00:00:00 Test Item Value Reference Range Interpretation Comments INTACT PTH (test code = 5005) 29 PG/ML INTACT [id number] 00:00:00 Test Item Value Reference Range Interpretation Comments INTACT PTH (test code = 5005) 29 PG/ML INTACT [id number] 00:00:00 Test Item Value Reference Range Interpretation Comments INTACT PTH (test code = 5005) 29 PG/ML CBC W/AUTO [id number] 00:00:00 Test Item Value Reference Range Interpretation Comments WBC (test code = 1001) 8.0 K/UL RBC (test code = 1002) 4.27 M/UL HEMOGLOBIN (test code = 1003) 12.5 G/DL HEMATOCRIT (test code = 1004) 35.2 % MCV (test code = 1005) 82.4 fL MCH (test code = 1006) 29.3 PG MCHC (test code = 1007) 35.5 G/DL RDW (test code = 1038) 13.8 % NEUTROPHILS (test code = 1008) 65.3 % LYMPHOCYTES (test code = 1010) 23.2 % MONOCYTES (test code = 1011) 6.1 % EOSINOPHILS (test code = 1012) 4.3 % BASOPHILS (test code = 1013) 0.5 % IMMATURE GRANYLOCYTES (test 0.6 % code = 1036) NUCLEATED RBCS (test code = 0.0 /100WBC'S 1065) PLATELET COUNT (test code = 294 K/UL 1015) ABSOLUTE NEUTROPHILS (test code 5.21 K/UL = 1066) ABSOLUTE LYMPHOCYTES (test code 1.85 K/UL = 1067) ABSOLUTE MONOCYTES (test code = 0.49 K/UL 1068) ABSOLUTE EOSINOPHILS (test code 0.34 K/UL = 1040) ABSOLUTE BASOPHILS (test code = 0.04 K/UL 1069) ABS IMMATURE GRANULOCYTES (test 0.05 K/UL code = 1020) ABS NUCLEATED RBCS (test code = 0.00 K/UL 51973) CBC W/AUTO [id number] 00:00:00 Test Item Value Reference Range Interpretation Comments WBC (test code = 1001) 8.0 K/UL RBC (test code = 1002) 4.27 M/UL HEMOGLOBIN (test code = 1003) 12.5 G/DL HEMATOCRIT (test code = 1004) 35.2 % MCV (test code = 1005) 82.4 fL MCH (test code = 1006) 29.3 PG MCHC (test code = 1007) 35.5 G/DL RDW (test code = 1038) 13.8 % NEUTROPHILS (test code = 1008) 65.3 % LYMPHOCYTES (test code = 1010) 23.2 % MONOCYTES (test code = 1011) 6.1 % EOSINOPHILS (test code = 1012) 4.3 % BASOPHILS (test code = 1013) 0.5 % IMMATURE GRANYLOCYTES (test 0.6 % code = 1036) NUCLEATED RBCS (test code = 0.0 /100WBC'S 1065) PLATELET COUNT (test code = 294 K/UL 1015) ABSOLUTE NEUTROPHILS (test code 5.21 K/UL = 1066) ABSOLUTE LYMPHOCYTES (test code 1.85 K/UL = 1067) ABSOLUTE MONOCYTES (test code = 0.49 K/UL 1068) ABSOLUTE EOSINOPHILS (test code 0.34 K/UL = 1040) ABSOLUTE BASOPHILS (test code = 0.04 K/UL 1069) ABS IMMATURE GRANULOCYTES (test 0.05 K/UL code = 1020) ABS NUCLEATED RBCS (test code = 0.00 K/UL 36657) HEMOGLOBIN [id number] 00:00:00 Test Item Value Reference Range Interpretation Comments HEMOGLOBIN A1c (test code = 05487) 7.5 % HEMOGLOBIN [id number] 00:00:00 Test Item Value Reference Range Interpretation Comments HEMOGLOBIN A1c (test code = 72092) 7.5 % LIPID [id number] 00:00:00 Test Item Value Reference Range Interpretation Comments CHOLESTEROL (test code = 2210) 154 MG/DL TRIGLYCERIDES (test code = 2232) 383 MG/DL HDL CHOLESTEROL (test code = 2220) 41 MG/DL CALC LDL CHOL (test code = 2237) 67 MG/DL RISK RATIO LDL/HDL (test code = 1.63 RATIO 2238) COMPREHENSIVE METABOLIC [id number] 00:00:00 Test Item Value Reference Range Interpretation Comments GLUCOSE (test code = 2217) 146 MG/DL BUN (test code = 2208) 29 MG/DL CREATININE (test code = 2214) 1.51 MG/DL eGFR (2020 CKD-EPI) (test code 40 ML/MIN/1.73 = 42381) CALC BUN/CREAT (test code = 19 RATIO 2235) SODIUM (test code = 2231) 136 MEQ/L POTASSIUM (test code = 2228) 3.7 MEQ/L CHLORIDE (test code = 2215) 94 MEQ/L CARBON DIOXIDE (test code = 27 MEQ/L 2205) CALCIUM (test code = 2209) 10.2 MG/DL PROTEIN, TOTAL (test code = 7.6 G/DL 222) ALBUMIN (test code = 2201) 4.8 G/DL CALC GLOBULIN (test code = 2.8 G/DL 2240) CALC A/G RATIO (test code = 1.7 RATIO 2234) BILIRUBIN, TOTAL (test code = <0.2 MG/DL 220) ALKALINE PHOSPHATASE (test 90 U/L code = 2204) AST (test code = 2218) 18 U/L ALT (test code = 2219) 15 U/L [id number] 00:00:00 Test Item Value Reference Range Interpretation Comments MAGNESIUM (test code = 2226) 2.0 MG/DL [id number] 00:00:00 Test Item Value Reference Range Interpretation Comments MAGNESIUM (test code = 2226) 2.0 MG/DL [id number] 00:00:00 Test Item Value Reference Range Interpretation Comments PHOSPHORUS (test code = 2227) 4.0 MG/DL URIC [id number] 00:00:00 Test Item Value Reference Range Interpretation Comments URIC ACID (test code = 2233) 5.3 MG/DL URINALYSIS W/REFLEX [id number] 00:00:00 Test Item Value Reference Range Interpretation Comments COLOR (test code = 1501) YELLOW APPEARANCE (test code = 1502) CLEAR SPECIFIC GRAVITY (test code = 1503) 1.012 LEUKOCYTE ESTERASE (test code = 1+ 1504) NITRITE (test code = 1505) NEGATIVE pH (test code = 1506) 6.5 PROTEIN (test code = 1507) TRACE GLUCOSE (test code = 1508) NEGATIVE KETONES (test code = 1509) NEGATIVE UROBILINOGEN (test code = 1510) 0.2 MG/DL BILIRUBIN (test code = 1511) NEGATIVE OCCULT BLOOD (test code = 1512) NEGATIVE WHITE BLOOD CELLS (test code = 0-5 /HPF 1513) RED BLOOD CELLS (test code = 1514) 0-2 /HPF EPITHELIAL CELLS (test code = 0-5 /HPF 57975) BACTERIA (test code = 1515) NONE SEEN CASTS, HYALINE (test code = 1517) NONE SEEN MICROALBUMIN/CREATININE, RANDOM AND [id number] 00:00:00 Test Item Value Reference Range Interpretation Comments CREATININE, URINE, CONC. (test 57.7 MG/DL code = 2072) ALBUMIN, URINE, RANDOM (test code 9.2 MG/DL = 90157) CALC ALBUMIN/CREAT, RND (test code 159 MG/G = 23791) GAVIN NON-REFLEX TO [id number] 00:00:00 Test Item Value Reference Range Interpretation Comments ANTI-NUCLEAR ANTIBODIES (test code = NEGATIVE 3506) VITAMIN D, 25 [id number] 00:00:00 Test Item Value Reference Range Interpretation Comments VITAMIN D, 25 OH (test code = 4958) 32 NG/ML INTACT [id number] 00:00:00 Test Item Value Reference Range Interpretation Comments INTACT PTH (test code = 5005) 29 PG/ML INTACT [id number] 00:00:00 Test Item Value Reference Range Interpretation Comments INTACT PTH (test code = 5005) 29 PG/ML CBC W/AUTO [id number] 00:00:00 Test Item Value Reference Range Interpretation Comments WBC (test code = 1001) 8.0 K/UL RBC (test code = 1002) 4.27 M/UL HEMOGLOBIN (test code = 1003) 12.5 G/DL HEMATOCRIT (test code = 1004) 35.2 % MCV (test code = 1005) 82.4 fL MCH (test code = 1006) 29.3 PG MCHC (test code = 1007) 35.5 G/DL RDW (test code = 1038) 13.8 % NEUTROPHILS (test code = 1008) 65.3 % LYMPHOCYTES (test code = 1010) 23.2 % MONOCYTES (test code = 1011) 6.1 % EOSINOPHILS (test code = 1012) 4.3 % BASOPHILS (test code = 1013) 0.5 % IMMATURE GRANYLOCYTES (test 0.6 % code = 1036) NUCLEATED RBCS (test code = 0.0 /100WBC'S 1065) PLATELET COUNT (test code = 294 K/UL 1015) ABSOLUTE NEUTROPHILS (test code 5.21 K/UL = 1066) ABSOLUTE LYMPHOCYTES (test code 1.85 K/UL = 1067) ABSOLUTE MONOCYTES (test code = 0.49 K/UL 1068) ABSOLUTE EOSINOPHILS (test code 0.34 K/UL = 1040) ABSOLUTE BASOPHILS (test code = 0.04 K/UL 1069) ABS IMMATURE GRANULOCYTES (test 0.05 K/UL code = 1020) ABS NUCLEATED RBCS (test code = 0.00 K/UL 31158) CBC W/AUTO [id number] 00:00:00 Test Item Value Reference Range Interpretation Comments WBC (test code = 1001) 8.0 K/UL RBC (test code = 1002) 4.27 M/UL HEMOGLOBIN (test code = 1003) 12.5 G/DL HEMATOCRIT (test code = 1004) 35.2 % MCV (test code = 1005) 82.4 fL MCH (test code = 1006) 29.3 PG MCHC (test code = 1007) 35.5 G/DL RDW (test code = 1038) 13.8 % NEUTROPHILS (test code = 1008) 65.3 % LYMPHOCYTES (test code = 1010) 23.2 % MONOCYTES (test code = 1011) 6.1 % EOSINOPHILS (test code = 1012) 4.3 % BASOPHILS (test code = 1013) 0.5 % IMMATURE GRANYLOCYTES (test 0.6 % code = 1036) NUCLEATED RBCS (test code = 0.0 /100WBC'S 1065) PLATELET COUNT (test code = 294 K/UL 1015) ABSOLUTE NEUTROPHILS (test code 5.21 K/UL = 1066) ABSOLUTE LYMPHOCYTES (test code 1.85 K/UL = 1067) ABSOLUTE MONOCYTES (test code = 0.49 K/UL 1068) ABSOLUTE EOSINOPHILS (test code 0.34 K/UL = 1040) ABSOLUTE BASOPHILS (test code = 0.04 K/UL 1069) ABS IMMATURE GRANULOCYTES (test 0.05 K/UL code = 1020) ABS NUCLEATED RBCS (test code = 0.00 K/UL 02687) CBC W/AUTO [id number] 00:00:00 Test Item Value Reference Range Interpretation Comments WBC (test code = 1001) 8.0 K/UL RBC (test code = 1002) 4.27 M/UL HEMOGLOBIN (test code = 1003) 12.5 G/DL HEMATOCRIT (test code = 1004) 35.2 % MCV (test code = 1005) 82.4 fL MCH (test code = 1006) 29.3 PG MCHC (test code = 1007) 35.5 G/DL RDW (test code = 1038) 13.8 % NEUTROPHILS (test code = 1008) 65.3 % LYMPHOCYTES (test code = 1010) 23.2 % MONOCYTES (test code = 1011) 6.1 % EOSINOPHILS (test code = 1012) 4.3 % BASOPHILS (test code = 1013) 0.5 % IMMATURE GRANYLOCYTES (test 0.6 % code = 1036) NUCLEATED RBCS (test code = 0.0 /100WBC'S 1065) PLATELET COUNT (test code = 294 K/UL 1015) ABSOLUTE NEUTROPHILS (test code 5.21 K/UL = 1066) ABSOLUTE LYMPHOCYTES (test code 1.85 K/UL = 1067) ABSOLUTE MONOCYTES (test code = 0.49 K/UL 1068) ABSOLUTE EOSINOPHILS (test code 0.34 K/UL = 1040) ABSOLUTE BASOPHILS (test code = 0.04 K/UL 1069) ABS IMMATURE GRANULOCYTES (test 0.05 K/UL code = 1020) ABS NUCLEATED RBCS (test code = 0.00 K/UL 92434) HEMOGLOBIN [id number] 00:00:00 Test Item Value Reference Range Interpretation Comments HEMOGLOBIN A1c (test code = 14751) 7.5 % HEMOGLOBIN [id number] 00:00:00 Test Item Value Reference Range Interpretation Comments HEMOGLOBIN A1c (test code = 93426) 7.5 % LIPID [id number] 00:00:00 Test Item Value Reference Range Interpretation Comments CHOLESTEROL (test code = 2210) 142 MG/DL TRIGLYCERIDES (test code = 2232) 439 MG/DL HDL CHOLESTEROL (test code = 38 MG/DL 2220) CALC LDL CHOL (test code = 2237) (NOTE) MG/DL RISK RATIO LDL/HDL (test code = (NOTE) RATIO 2238) HEMOGLOBIN [id number] 00:00:00 Test Item Value Reference Range Interpretation Comments HEMOGLOBIN A1c (test code = 95424) 6.6 % HEMOGLOBIN [id number] 00:00:00 Test Item Value Reference Range Interpretation Comments HEMOGLOBIN A1c (test code = 13202) 6.6 % HEMOGLOBIN [id number] 00:00:00 Test Item Value Reference Range Interpretation Comments HEMOGLOBIN A1c (test code = 03466) 6.6 % COMPREHENSIVE METABOLIC [id number] 00:00:00 Test Item Value Reference Range Interpretation Comments GLUCOSE (test code = 2217) 97 MG/DL BUN (test code = 2208) 40 MG/DL CREATININE (test code = 2214) 1.92 MG/DL eGFR AMER. (test code 33 ML/MIN/1.73 = 58235) eGFR NON- AMER. (test 28 ML/MIN/1.73 code = 37756) CALC BUN/CREAT (test code = 21 RATIO 2235) SODIUM (test code = 2231) 140 MEQ/L POTASSIUM (test code = 2228) 4.5 MEQ/L CHLORIDE (test code = 2215) 102 MEQ/L CARBON DIOXIDE (test code = 24 MEQ/L 2205) CALCIUM (test code = 2209) 10.1 MG/DL PROTEIN, TOTAL (test code = 7.6 G/DL 2228) ALBUMIN (test code = 2201) 4.6 G/DL CALC GLOBULIN (test code = 3.0 G/DL 2240) CALC A/G RATIO (test code = 1.5 RATIO 2234) BILIRUBIN, TOTAL (test code = <0.2 MG/DL 2206) ALKALINE PHOSPHATASE (test 111 U/L code = 2204) AST (test code = 2218) 15 U/L ALT (test code = 2219) 13 U/L COMPREHENSIVE METABOLIC [id number] 00:00:00 Test Item Value Reference Range Interpretation Comments GLUCOSE (test code = 2217) 97 MG/DL BUN (test code = 2208) 40 MG/DL CREATININE (test code = 2214) 1.92 MG/DL eGFR AMER. (test code 33 ML/MIN/1.73 = 94265) eGFR NON- AMER. (test 28 ML/MIN/1.73 code = 06927) CALC BUN/CREAT (test code = 21 RATIO 2235) SODIUM (test code = 2231) 140 MEQ/L POTASSIUM (test code = 2228) 4.5 MEQ/L CHLORIDE (test code = 2215) 102 MEQ/L CARBON DIOXIDE (test code = 24 MEQ/L 2205) CALCIUM (test code = 2209) 10.1 MG/DL PROTEIN, TOTAL (test code = 7.6 G/DL 2228) ALBUMIN (test code = 2201) 4.6 G/DL CALC GLOBULIN (test code = 3.0 G/DL 2240) CALC A/G RATIO (test code = 1.5 RATIO 2234) BILIRUBIN, TOTAL (test code = <0.2 MG/DL 2206) ALKALINE PHOSPHATASE (test 111 U/L code = 2204) AST (test code = 2218) 15 U/L ALT (test code = 2219) 13 U/L LIPID [id number] 00:00:00 Test Item Value Reference Range Interpretation Comments CHOLESTEROL (test code = 2210) 142 MG/DL TRIGLYCERIDES (test code = 2232) 439 MG/DL HDL CHOLESTEROL (test code = 38 MG/DL 2220) CALC LDL CHOL (test code = 2237) (NOTE) MG/DL RISK RATIO LDL/HDL (test code = (NOTE) RATIO 2238) LIPID [id number] 00:00:00 Test Item Value Reference Range Interpretation Comments CHOLESTEROL (test code = 2210) 142 MG/DL TRIGLYCERIDES (test code = 2232) 439 MG/DL HDL CHOLESTEROL (test code = 38 MG/DL 2220) CALC LDL CHOL (test code = 2237) (NOTE) MG/DL RISK RATIO LDL/HDL (test code = (NOTE) RATIO 2238) HEMOGLOBIN [id number] 00:00:00 Test Item Value Reference Range Interpretation Comments HEMOGLOBIN A1c (test code = 42548) 6.6 % HEMOGLOBIN [id number] 00:00:00 Test Item Value Reference Range Interpretation Comments HEMOGLOBIN A1c (test code = 03243) 6.6 % HEMOGLOBIN [id number] 00:00:00 Test Item Value Reference Range Interpretation Comments HEMOGLOBIN A1c (test code = 56927) 6.6 % COMPREHENSIVE METABOLIC [id number] 00:00:00 Test Item Value Reference Range Interpretation Comments GLUCOSE (test code = 2217) 97 MG/DL BUN (test code = 2208) 40 MG/DL CREATININE (test code = 2214) 1.92 MG/DL eGFR AMER. (test code 33 ML/MIN/1.73 = 14280) eGFR NON- AMER. (test 28 ML/MIN/1.73 code = 92498) CALC BUN/CREAT (test code = 21 RATIO 2235) SODIUM (test code = 2231) 140 MEQ/L POTASSIUM (test code = 2228) 4.5 MEQ/L CHLORIDE (test code = 2215) 102 MEQ/L CARBON DIOXIDE (test code = 24 MEQ/L 2206) CALCIUM (test code = 2209) 10.1 MG/DL PROTEIN, TOTAL (test code = 7.6 G/DL 222) ALBUMIN (test code = 2201) 4.6 G/DL CALC GLOBULIN (test code = 3.0 G/DL 2240) CALC A/G RATIO (test code = 1.5 RATIO 2234) BILIRUBIN, TOTAL (test code = <0.2 MG/DL 2206) ALKALINE PHOSPHATASE (test 111 U/L code = 2204) AST (test code = 2218) 15 U/L ALT (test code = 2219) 13 U/L COMPREHENSIVE METABOLIC [id number] 00:00:00 Test Item Value Reference Range Interpretation Comments GLUCOSE (test code = 2217) 97 MG/DL BUN (test code = 2208) 40 MG/DL CREATININE (test code = 2214) 1.92 MG/DL eGFR AMER. (test code 33 ML/MIN/1.73 = 78236) eGFR NON- AMER. (test 28 ML/MIN/1.73 code = 99819) CALC BUN/CREAT (test code = 21 RATIO 2235) SODIUM (test code = 2231) 140 MEQ/L POTASSIUM (test code = 2228) 4.5 MEQ/L CHLORIDE (test code = 2215) 102 MEQ/L CARBON DIOXIDE (test code = 24 MEQ/L 2205) CALCIUM (test code = 2209) 10.1 MG/DL PROTEIN, TOTAL (test code = 7.6 G/DL 2228) ALBUMIN (test code = 2201) 4.6 G/DL CALC GLOBULIN (test code = 3.0 G/DL 2240) CALC A/G RATIO (test code = 1.5 RATIO 2234) BILIRUBIN, TOTAL (test code = <0.2 MG/DL 2206) ALKALINE PHOSPHATASE (test 111 U/L code = 2204) AST (test code = 2218) 15 U/L ALT (test code = 2219) 13 U/L LIPID [id number] 00:00:00 Test Item Value Reference Range Interpretation Comments CHOLESTEROL (test code = 2210) 142 MG/DL TRIGLYCERIDES (test code = 2232) 439 MG/DL HDL CHOLESTEROL (test code = 38 MG/DL 2220) CALC LDL CHOL (test code = 2237) (NOTE) MG/DL RISK RATIO LDL/HDL (test code = (NOTE) RATIO 2238) LIPID [id number] 00:00:00 Test Item Value Reference Range Interpretation Comments CHOLESTEROL (test code = 2210) 142 MG/DL TRIGLYCERIDES (test code = 2232) 439 MG/DL HDL CHOLESTEROL (test code = 38 MG/DL 0) CALC LDL CHOL (test code = 2237) (NOTE) MG/DL RISK RATIO LDL/HDL (test code = (NOTE) RATIO 2238) HEMOGLOBIN [id number] 00:00:00 Test Item Value Reference Range Interpretation Comments HEMOGLOBIN A1c (test code = 08116) 6.6 % HEMOGLOBIN [id number] 00:00:00 Test Item Value Reference Range Interpretation Comments HEMOGLOBIN A1c (test code = 59111) 6.6 % HEMOGLOBIN [id number] 00:00:00 Test Item Value Reference Range Interpretation Comments HEMOGLOBIN A1c (test code = 91560) 6.6 % COMPREHENSIVE METABOLIC [id number] 00:00:00 Test Item Value Reference Range Interpretation Comments GLUCOSE (test code = 2217) 97 MG/DL BUN (test code = 2208) 40 MG/DL CREATININE (test code = 2214) 1.92 MG/DL eGFR AMER. (test code 33 ML/MIN/1.73 = 93009) eGFR NON- AMER. (test 28 ML/MIN/1.73 code = 49685) CALC BUN/CREAT (test code = 21 RATIO 2235) SODIUM (test code = 2231) 140 MEQ/L POTASSIUM (test code = 2228) 4.5 MEQ/L CHLORIDE (test code = 2215) 102 MEQ/L CARBON DIOXIDE (test code = 24 MEQ/L 2205) CALCIUM (test code = 2209) 10.1 MG/DL PROTEIN, TOTAL (test code = 7.6 G/DL 2228) ALBUMIN (test code = 2201) 4.6 G/DL CALC GLOBULIN (test code = 3.0 G/DL 0) CALC A/G RATIO (test code = 1.5 RATIO 2234) BILIRUBIN, TOTAL (test code = <0.2 MG/DL 2206) ALKALINE PHOSPHATASE (test 111 U/L code = 2204) AST (test code = 2218) 15 U/L ALT (test code = 2219) 13 U/L LIPID [id number] 00:00:00 Test Item Value Reference Range Interpretation Comments CHOLESTEROL (test code = 2210) 142 MG/DL TRIGLYCERIDES (test code = 2232) 439 MG/DL HDL CHOLESTEROL (test code = 38 MG/DL 2220) CALC LDL CHOL (test code = 2237) (NOTE) MG/DL RISK RATIO LDL/HDL (test code = (NOTE) RATIO 2238) HEMOGLOBIN [id number] 00:00:00 Test Item Value Reference Range Interpretation Comments HEMOGLOBIN A1c (test code = 42953) 6.6 % HEMOGLOBIN [id number] 00:00:00 Test Item Value Reference Range Interpretation Comments HEMOGLOBIN A1c (test code = 22959) 6.6 % COMPREHENSIVE METABOLIC [id number] 00:00:00 Test Item Value Reference Range Interpretation Comments GLUCOSE (test code = 2217) 97 MG/DL BUN (test code = 2208) 40 MG/DL CREATININE (test code = 2214) 1.92 MG/DL eGFR AMER. (test code 33 ML/MIN/1.73 = 20565) eGFR NON- AMER. (test 28 ML/MIN/1.73 code = 33414) CALC BUN/CREAT (test code = 21 RATIO 2235) SODIUM (test code = 2231) 140 MEQ/L POTASSIUM (test code = 2228) 4.5 MEQ/L CHLORIDE (test code = 2215) 102 MEQ/L CARBON DIOXIDE (test code = 24 MEQ/L 2205) CALCIUM (test code = 2209) 10.1 MG/DL PROTEIN, TOTAL (test code = 7.6 G/DL 2228) ALBUMIN (test code = 2201) 4.6 G/DL CALC GLOBULIN (test code = 3.0 G/DL 2240) CALC A/G RATIO (test code = 1.5 RATIO 2234) BILIRUBIN, TOTAL (test code = <0.2 MG/DL 2206) ALKALINE PHOSPHATASE (test 111 U/L code = 2204) AST (test code = 2218) 15 U/L ALT (test code = 2219) 13 U/L COMPREHENSIVE METABOLIC [id number] 00:00:00 Test Item Value Reference Range Interpretation Comments GLUCOSE (test code = 2217) 97 MG/DL BUN (test code = 2208) 40 MG/DL CREATININE (test code = 2214) 1.92 MG/DL eGFR AMER. (test code 33 ML/MIN/1.73 = 50487) eGFR NON- AMER. (test 28 ML/MIN/1.73 code = 41424) CALC BUN/CREAT (test code = 21 RATIO 2235) SODIUM (test code = 2231) 140 MEQ/L POTASSIUM (test code = 2228) 4.5 MEQ/L CHLORIDE (test code = 2215) 102 MEQ/L CARBON DIOXIDE (test code = 24 MEQ/L 2206) CALCIUM (test code = 2209) 10.1 MG/DL PROTEIN, TOTAL (test code = 7.6 G/DL 2228) ALBUMIN (test code = 2201) 4.6 G/DL CALC GLOBULIN (test code = 3.0 G/DL 2240) CALC A/G RATIO (test code = 1.5 RATIO 2234) BILIRUBIN, TOTAL (test code = <0.2 MG/DL 2206) ALKALINE PHOSPHATASE (test 111 U/L code = 2204) AST (test code = 2218) 15 U/L ALT (test code = 2219) 13 U/L LIPID [id number] 00:00:00 Test Item Value Reference Range Interpretation Comments CHOLESTEROL (test code = 2210) 142 MG/DL TRIGLYCERIDES (test code = 2232) 439 MG/DL HDL CHOLESTEROL (test code = 38 MG/DL 2220) CALC LDL CHOL (test code = 2237) (NOTE) MG/DL RISK RATIO LDL/HDL (test code = (NOTE) RATIO 2238) LIPID [id number] 00:00:00 Test Item Value Reference Range Interpretation Comments CHOLESTEROL (test code = 2210) 157 MG/DL TRIGLYCERIDES (test code = 2232) 454 MG/DL HDL CHOLESTEROL (test code = 37 MG/DL 2220) CALC LDL CHOL (test code = 2237) (NOTE) MG/DL RISK RATIO LDL/HDL (test code = (NOTE) RATIO 2238) COMPREHENSIVE METABOLIC [id number] 00:00:00 Test Item Value Reference Range Interpretation Comments GLUCOSE (test code = 2217) 177 MG/DL BUN (test code = 2208) 19 MG/DL CREATININE (test code = 2214) 1.02 MG/DL eGFR AMER. (test code 71 ML/MIN/1.73 = 86452) eGFR NON- AMER. (test 61 ML/MIN/1.73 code = 21766) CALC BUN/CREAT (test code = 19 RATIO 2235) SODIUM (test code = 2231) 142 MEQ/L POTASSIUM (test code = 2228) 4.1 MEQ/L CHLORIDE (test code = 2215) 100 MEQ/L CARBON DIOXIDE (test code = 23 MEQ/L 2206) CALCIUM (test code = 2209) 9.8 MG/DL PROTEIN, TOTAL (test code = 7.5 G/DL 2228) ALBUMIN (test code = 2201) 4.8 G/DL CALC GLOBULIN (test code = 2.7 G/DL 2240) CALC A/G RATIO (test code = 1.8 RATIO 2234) BILIRUBIN, TOTAL (test code = <0.2 MG/DL 2206) ALKALINE PHOSPHATASE (test 77 U/L code = 2204) AST (test code = 2218) 22 U/L ALT (test code = 2219) 21 U/L COMPREHENSIVE METABOLIC [id number] 00:00:00 Test Item Value Reference Range Interpretation Comments GLUCOSE (test code = 2217) 177 MG/DL BUN (test code = 2208) 19 MG/DL CREATININE (test code = 2214) 1.02 MG/DL eGFR AMER. (test code 71 ML/MIN/1.73 = 17660) eGFR NON- AMER. (test 61 ML/MIN/1.73 code = 99399) CALC BUN/CREAT (test code = 19 RATIO 2235) SODIUM (test code = 2231) 142 MEQ/L POTASSIUM (test code = 2228) 4.1 MEQ/L CHLORIDE (test code = 2215) 100 MEQ/L CARBON DIOXIDE (test code = 23 MEQ/L 2206) CALCIUM (test code = 2209) 9.8 MG/DL PROTEIN, TOTAL (test code = 7.5 G/DL 2228) ALBUMIN (test code = 2201) 4.8 G/DL CALC GLOBULIN (test code = 2.7 G/DL 2240) CALC A/G RATIO (test code = 1.8 RATIO 2234) BILIRUBIN, TOTAL (test code = <0.2 MG/DL 2206) ALKALINE PHOSPHATASE (test 77 U/L code = 2204) AST (test code = 2218) 22 U/L ALT (test code = 2219) 21 U/L HEMOGLOBIN [id number] 00:00:00 Test Item Value Reference Range Interpretation Comments HEMOGLOBIN A1c (test code = 48730) 6.9 % HEMOGLOBIN [id number] 00:00:00 Test Item Value Reference Range Interpretation Comments HEMOGLOBIN A1c (test code = 41509) 6.9 % HEMOGLOBIN [id number] 00:00:00 Test Item Value Reference Range Interpretation Comments HEMOGLOBIN A1c (test code = 30157) 6.9 % LIPID [id number] 00:00:00 Test Item Value Reference Range Interpretation Comments CHOLESTEROL (test code = 2210) 157 MG/DL TRIGLYCERIDES (test code = 2232) 454 MG/DL HDL CHOLESTEROL (test code = 37 MG/DL 2220) CALC LDL CHOL (test code = 2237) (NOTE) MG/DL RISK RATIO LDL/HDL (test code = (NOTE) RATIO 2238) LIPID [id number] 00:00:00 Test Item Value Reference Range Interpretation Comments CHOLESTEROL (test code = 2210) 157 MG/DL TRIGLYCERIDES (test code = 2232) 454 MG/DL HDL CHOLESTEROL (test code = 37 MG/DL 2220) CALC LDL CHOL (test code = 2237) (NOTE) MG/DL RISK RATIO LDL/HDL (test code = (NOTE) RATIO 2238) COMPREHENSIVE METABOLIC [id number] 00:00:00 Test Item Value Reference Range Interpretation Comments GLUCOSE (test code = 2217) 177 MG/DL BUN (test code = 2208) 19 MG/DL CREATININE (test code = 2214) 1.02 MG/DL eGFR AMER. (test code 71 ML/MIN/1.73 = 74252) eGFR NON- AMER. (test 61 ML/MIN/1.73 code = 21451) CALC BUN/CREAT (test code = 19 RATIO 2235) SODIUM (test code = 2231) 142 MEQ/L POTASSIUM (test code = 2228) 4.1 MEQ/L CHLORIDE (test code = 2215) 100 MEQ/L CARBON DIOXIDE (test code = 23 MEQ/L 2205) CALCIUM (test code = 2209) 9.8 MG/DL PROTEIN, TOTAL (test code = 7.5 G/DL 2228) ALBUMIN (test code = 2201) 4.8 G/DL CALC GLOBULIN (test code = 2.7 G/DL 2240) CALC A/G RATIO (test code = 1.8 RATIO 2234) BILIRUBIN, TOTAL (test code = <0.2 MG/DL 2206) ALKALINE PHOSPHATASE (test 77 U/L code = 2204) AST (test code = 2218) 22 U/L ALT (test code = 2219) 21 U/L COMPREHENSIVE METABOLIC [id number] 00:00:00 Test Item Value Reference Range Interpretation Comments GLUCOSE (test code = 2217) 177 MG/DL BUN (test code = 2208) 19 MG/DL CREATININE (test code = 2214) 1.02 MG/DL eGFR AMER. (test code 71 ML/MIN/1.73 = 98827) eGFR NON- AMER. (test 61 ML/MIN/1.73 code = 47648) CALC BUN/CREAT (test code = 19 RATIO 2235) SODIUM (test code = 2231) 142 MEQ/L POTASSIUM (test code = 2228) 4.1 MEQ/L CHLORIDE (test code = 2215) 100 MEQ/L CARBON DIOXIDE (test code = 23 MEQ/L 2206) CALCIUM (test code = 2209) 9.8 MG/DL PROTEIN, TOTAL (test code = 7.5 G/DL 2228) ALBUMIN (test code = 2201) 4.8 G/DL CALC GLOBULIN (test code = 2.7 G/DL 2240) CALC A/G RATIO (test code = 1.8 RATIO 2234) BILIRUBIN, TOTAL (test code = <0.2 MG/DL 2206) ALKALINE PHOSPHATASE (test 77 U/L code = 2204) AST (test code = 2218) 22 U/L ALT (test code = 2219) 21 U/L HEMOGLOBIN [id number] 00:00:00 Test Item Value Reference Range Interpretation Comments HEMOGLOBIN A1c (test code = 82677) 6.9 % HEMOGLOBIN [id number] 00:00:00 Test Item Value Reference Range Interpretation Comments HEMOGLOBIN A1c (test code = 49869) 6.9 % HEMOGLOBIN [id number] 00:00:00 Test Item Value Reference Range Interpretation Comments HEMOGLOBIN A1c (test code = 81619) 6.9 % LIPID [id number] 00:00:00 Test Item Value Reference Range Interpretation Comments CHOLESTEROL (test code = 2210) 157 MG/DL TRIGLYCERIDES (test code = 2232) 454 MG/DL HDL CHOLESTEROL (test code = 37 MG/DL 2220) CALC LDL CHOL (test code = 2237) (NOTE) MG/DL RISK RATIO LDL/HDL (test code = (NOTE) RATIO 2238) LIPID [id number] 00:00:00 Test Item Value Reference Range Interpretation Comments CHOLESTEROL (test code = 2210) 157 MG/DL TRIGLYCERIDES (test code = 2232) 454 MG/DL HDL CHOLESTEROL (test code = 37 MG/DL 2220) CALC LDL CHOL (test code = 2237) (NOTE) MG/DL RISK RATIO LDL/HDL (test code = (NOTE) RATIO 2238) COMPREHENSIVE METABOLIC [id number] 00:00:00 Test Item Value Reference Range Interpretation Comments GLUCOSE (test code = 2217) 177 MG/DL BUN (test code = 2208) 19 MG/DL CREATININE (test code = 2214) 1.02 MG/DL eGFR AMER. (test code 71 ML/MIN/1.73 = 06837) eGFR NON- AMER. (test 61 ML/MIN/1.73 code = 52605) CALC BUN/CREAT (test code = 19 RATIO 2235) SODIUM (test code = 2231) 142 MEQ/L POTASSIUM (test code = 2228) 4.1 MEQ/L CHLORIDE (test code = 2215) 100 MEQ/L CARBON DIOXIDE (test code = 23 MEQ/L 2206) CALCIUM (test code = 2209) 9.8 MG/DL PROTEIN, TOTAL (test code = 7.5 G/DL 2228) ALBUMIN (test code = 2201) 4.8 G/DL CALC GLOBULIN (test code = 2.7 G/DL 2240) CALC A/G RATIO (test code = 1.8 RATIO 2234) BILIRUBIN, TOTAL (test code = <0.2 MG/DL 2206) ALKALINE PHOSPHATASE (test 77 U/L code = 2204) AST (test code = 2218) 22 U/L ALT (test code = 2219) 21 U/L COMPREHENSIVE METABOLIC [id number] 00:00:00 Test Item Value Reference Range Interpretation Comments GLUCOSE (test code = 2217) 177 MG/DL BUN (test code = 2208) 19 MG/DL CREATININE (test code = 2214) 1.02 MG/DL eGFR AMER. (test code 71 ML/MIN/1.73 = 71483) eGFR NON- AMER. (test 61 ML/MIN/1.73 code = 10216) CALC BUN/CREAT (test code = 19 RATIO 2235) SODIUM (test code = 2231) 142 MEQ/L POTASSIUM (test code = 2228) 4.1 MEQ/L CHLORIDE (test code = 2215) 100 MEQ/L CARBON DIOXIDE (test code = 23 MEQ/L 2205) CALCIUM (test code = 2209) 9.8 MG/DL PROTEIN, TOTAL (test code = 7.5 G/DL 2228) ALBUMIN (test code = 2201) 4.8 G/DL CALC GLOBULIN (test code = 2.7 G/DL 2239) CALC A/G RATIO (test code = 1.8 RATIO 2234) BILIRUBIN, TOTAL (test code = <0.2 MG/DL 2206) ALKALINE PHOSPHATASE (test 77 U/L code = 220) AST (test code = 2218) 22 U/L ALT (test code = 2219) 21 U/L HEMOGLOBIN [id number] 00:00:00 Test Item Value Reference Range Interpretation Comments HEMOGLOBIN A1c (test code = 88439) 6.9 % HEMOGLOBIN [id number] 00:00:00 Test Item Value Reference Range Interpretation Comments HEMOGLOBIN A1c (test code = 55872) 6.9 % LIPID [id number] 00:00:00 Test Item Value Reference Range Interpretation Comments CHOLESTEROL (test code = 2210) 157 MG/DL TRIGLYCERIDES (test code = 2232) 454 MG/DL HDL CHOLESTEROL (test code = 37 MG/DL 2219) CALC LDL CHOL (test code = 2237) (NOTE) MG/DL RISK RATIO LDL/HDL (test code = (NOTE) RATIO 2238) COMPREHENSIVE METABOLIC [id number] 00:00:00 Test Item Value Reference Range Interpretation Comments GLUCOSE (test code = 2217) 177 MG/DL BUN (test code = 2208) 19 MG/DL CREATININE (test code = 2214) 1.02 MG/DL eGFR AMER. (test code 71 ML/MIN/1.73 = 10770) eGFR NON- AMER. (test 61 ML/MIN/1.73 code = 80846) CALC BUN/CREAT (test code = 19 RATIO 2235) SODIUM (test code = 2231) 142 MEQ/L POTASSIUM (test code = 2228) 4.1 MEQ/L CHLORIDE (test code = 2215) 100 MEQ/L CARBON DIOXIDE (test code = 23 MEQ/L 2205) CALCIUM (test code = 2209) 9.8 MG/DL PROTEIN, TOTAL (test code = 7.5 G/DL 2228) ALBUMIN (test code = 2201) 4.8 G/DL CALC GLOBULIN (test code = 2.7 G/DL 2239) CALC A/G RATIO (test code = 1.8 RATIO 4) BILIRUBIN, TOTAL (test code = <0.2 MG/DL 2206) ALKALINE PHOSPHATASE (test 77 U/L code = 2204) AST (test code = 2218) 22 U/L ALT (test code = 2219) 21 U/L HEMOGLOBIN [id number] 00:00:00 Test Item Value Reference Range Interpretation Comments HEMOGLOBIN A1c (test code = 36512) 6.9 % HEMOGLOBIN [id number] 00:00:00 Test Item Value Reference Range Interpretation Comments HEMOGLOBIN A1c (test code = 69088) 6.9 % HEMOGLOBIN [id number] 00:00:00 Test Item Value Reference Range Interpretation Comments HEMOGLOBIN A1c (test code = 62671) 6.9 % LIPID [id number] 00:00:00 Test Item Value Reference Range Interpretation Comments CHOLESTEROL (test code = 2210) 157 MG/DL TRIGLYCERIDES (test code = 2232) 454 MG/DL HDL CHOLESTEROL (test code = 37 MG/DL 2219) CALC LDL CHOL (test code = 2237) (NOTE) MG/DL RISK RATIO LDL/HDL (test code = (NOTE) RATIO 2238) LIPID [id number] 00:00:00 Test Item Value Reference Range Interpretation Comments CHOLESTEROL (test code = 2210) 135 MG/DL TRIGLYCERIDES (test code = 2232) 558 MG/DL HDL CHOLESTEROL (test code = 35 MG/DL 0) CALC LDL CHOL (test code = 2237) (NOTE) MG/DL RISK RATIO LDL/HDL (test code = (NOTE) RATIO 2238) COMPREHENSIVE METABOLIC [id number] 00:00:00 Test Item Value Reference Range Interpretation Comments GLUCOSE (test code = 2217) 340 MG/DL BUN (test code = 2208) 19 MG/DL CREATININE (test code = 2214) 0.89 MG/DL eGFR AMER. (test code 84 ML/MIN/1.73 = 43541) eGFR NON- AMER. (test 72 ML/MIN/1.73 code = 89496) CALC BUN/CREAT (test code = 21 RATIO 2235) SODIUM (test code = 2231) 138 MEQ/L POTASSIUM (test code = 2228) 3.7 MEQ/L CHLORIDE (test code = 2215) 97 MEQ/L CARBON DIOXIDE (test code = 25 MEQ/L 220) CALCIUM (test code = 2209) 9.9 MG/DL PROTEIN, TOTAL (test code = 7.7 G/DL 2228) ALBUMIN (test code = 2201) 4.9 G/DL CALC GLOBULIN (test code = 2.8 G/DL 2240) CALC A/G RATIO (test code = 1.8 RATIO 2234) BILIRUBIN, TOTAL (test code = <0.2 MG/DL 2206) ALKALINE PHOSPHATASE (test 112 U/L code = 2204) AST (test code = 2218) 30 U/L ALT (test code = 2219) 27 U/L COMPREHENSIVE METABOLIC [id number] 00:00:00 Test Item Value Reference Range Interpretation Comments GLUCOSE (test code = 2217) 340 MG/DL BUN (test code = 2208) 19 MG/DL CREATININE (test code = 2214) 0.89 MG/DL eGFR AMER. (test code 84 ML/MIN/1.73 = 97841) eGFR NON- AMER. (test 72 ML/MIN/1.73 code = 61341) CALC BUN/CREAT (test code = 21 RATIO 2235) SODIUM (test code = 2231) 138 MEQ/L POTASSIUM (test code = 2228) 3.7 MEQ/L CHLORIDE (test code = 2215) 97 MEQ/L CARBON DIOXIDE (test code = 25 MEQ/L 2206) CALCIUM (test code = 2209) 9.9 MG/DL PROTEIN, TOTAL (test code = 7.7 G/DL 2228) ALBUMIN (test code = 2201) 4.9 G/DL CALC GLOBULIN (test code = 2.8 G/DL 2240) CALC A/G RATIO (test code = 1.8 RATIO 2234) BILIRUBIN, TOTAL (test code = <0.2 MG/DL 2207) ALKALINE PHOSPHATASE (test 112 U/L code = 2204) AST (test code = 2218) 30 U/L ALT (test code = 2219) 27 U/L [id number] 00:00:00 Test Item Value Reference Range Interpretation Comments TSH, THIRD GENERATION (test code 1.680 UIU/ML = 2821) [id number] 00:00:00 Test Item Value Reference Range Interpretation Comments TSH, THIRD GENERATION (test code 1.680 UIU/ML = 2821) [id number] 00:00:00 Test Item Value Reference Range Interpretation Comments TSH, THIRD GENERATION (test code 1.680 UIU/ML = 2821) MICROALBUMIN/CREATININE, RANDOM AND [id number] 00:00:00 Test Item Value Reference Range Interpretation Comments CREATININE, URINE, CONC. (test 51.5 MG/DL code = 2072) ALBUMIN, URINE, RANDOM (test code 77.9 MG/DL = 34150) CALC ALBUMIN/CREAT, RND (test code 1513 MG/G = 81954) MICROALBUMIN/CREATININE, RANDOM AND [id number] 00:00:00 Test Item Value Reference Range Interpretation Comments CREATININE, URINE, CONC. (test 51.5 MG/DL code = 2072) ALBUMIN, URINE, RANDOM (test code 77.9 MG/DL = 36335) CALC ALBUMIN/CREAT, RND (test code 1513 MG/G = 72287) HEMOGLOBIN [id number] 00:00:00 Test Item Value Reference Range Interpretation Comments HEMOGLOBIN A1c (test code = 84515) 9.8 % HEMOGLOBIN [id number] 00:00:00 Test Item Value Reference Range Interpretation Comments HEMOGLOBIN A1c (test code = 75958) 9.8 % HEMOGLOBIN [id number] 00:00:00 Test Item Value Reference Range Interpretation Comments HEMOGLOBIN A1c (test code = 25718) 9.8 % LIPID [id number] 00:00:00 Test Item Value Reference Range Interpretation Comments CHOLESTEROL (test code = 2210) 135 MG/DL TRIGLYCERIDES (test code = 2232) 558 MG/DL HDL CHOLESTEROL (test code = 35 MG/DL 2220) CALC LDL CHOL (test code = 2237) (NOTE) MG/DL RISK RATIO LDL/HDL (test code = (NOTE) RATIO 2238) LIPID [id number] 00:00:00 Test Item Value Reference Range Interpretation Comments CHOLESTEROL (test code = 2210) 135 MG/DL TRIGLYCERIDES (test code = 2232) 558 MG/DL HDL CHOLESTEROL (test code = 35 MG/DL 2220) CALC LDL CHOL (test code = 2237) (NOTE) MG/DL RISK RATIO LDL/HDL (test code = (NOTE) RATIO 2238) COMPREHENSIVE METABOLIC [id number] 00:00:00 Test Item Value Reference Range Interpretation Comments GLUCOSE (test code = 2217) 340 MG/DL BUN (test code = 2208) 19 MG/DL CREATININE (test code = 2214) 0.89 MG/DL eGFR AMER. (test code 84 ML/MIN/1.73 = 08892) eGFR NON- AMER. (test 72 ML/MIN/1.73 code = 33425) CALC BUN/CREAT (test code = 21 RATIO 2235) SODIUM (test code = 2231) 138 MEQ/L POTASSIUM (test code = 2228) 3.7 MEQ/L CHLORIDE (test code = 2215) 97 MEQ/L CARBON DIOXIDE (test code = 25 MEQ/L 2205) CALCIUM (test code = 2209) 9.9 MG/DL PROTEIN, TOTAL (test code = 7.7 G/DL 2228) ALBUMIN (test code = 2201) 4.9 G/DL CALC GLOBULIN (test code = 2.8 G/DL 2240) CALC A/G RATIO (test code = 1.8 RATIO 2234) BILIRUBIN, TOTAL (test code = <0.2 MG/DL 220) ALKALINE PHOSPHATASE (test 112 U/L code = 2204) AST (test code = 2218) 30 U/L ALT (test code = 2219) 27 U/L COMPREHENSIVE METABOLIC [id number] 00:00:00 Test Item Value Reference Range Interpretation Comments GLUCOSE (test code = 2217) 340 MG/DL BUN (test code = 2208) 19 MG/DL CREATININE (test code = 2214) 0.89 MG/DL eGFR AMER. (test code 84 ML/MIN/1.73 = 52926) eGFR NON- AMER. (test 72 ML/MIN/1.73 code = 96135) CALC BUN/CREAT (test code = 21 RATIO 2235) SODIUM (test code = 2231) 138 MEQ/L POTASSIUM (test code = 2228) 3.7 MEQ/L CHLORIDE (test code = 2215) 97 MEQ/L CARBON DIOXIDE (test code = 25 MEQ/L 2205) CALCIUM (test code = 2209) 9.9 MG/DL PROTEIN, TOTAL (test code = 7.7 G/DL 2228) ALBUMIN (test code = 2201) 4.9 G/DL CALC GLOBULIN (test code = 2.8 G/DL 2239) CALC A/G RATIO (test code = 1.8 RATIO 2233) BILIRUBIN, TOTAL (test code = <0.2 MG/DL 2206) ALKALINE PHOSPHATASE (test 112 U/L code = 2204) AST (test code = 2218) 30 U/L ALT (test code = 2219) 27 U/L [id number] 00:00:00 Test Item Value Reference Range Interpretation Comments TSH, THIRD GENERATION (test code 1.680 UIU/ML = 2821) [id number] 00:00:00 Test Item Value Reference Range Interpretation Comments TSH, THIRD GENERATION (test code 1.680 UIU/ML = 2821) [id number] 00:00:00 Test Item Value Reference Range Interpretation Comments TSH, THIRD GENERATION (test code 1.680 UIU/ML = 2821) MICROALBUMIN/CREATININE, RANDOM AND [id number] 00:00:00 Test Item Value Reference Range Interpretation Comments CREATININE, URINE, CONC. (test 51.5 MG/DL code = 2072) ALBUMIN, URINE, RANDOM (test code 77.9 MG/DL = 30402) CALC ALBUMIN/CREAT, RND (test code 1513 MG/G = 46832) MICROALBUMIN/CREATININE, RANDOM AND [id number] 00:00:00 Test Item Value Reference Range Interpretation Comments CREATININE, URINE, CONC. (test 51.5 MG/DL code = 2072) ALBUMIN, URINE, RANDOM (test code 77.9 MG/DL = 76923) CALC ALBUMIN/CREAT, RND (test code 1513 MG/G = 76447) HEMOGLOBIN [id number] 00:00:00 Test Item Value Reference Range Interpretation Comments HEMOGLOBIN A1c (test code = 33206) 9.8 % HEMOGLOBIN [id number] 00:00:00 Test Item Value Reference Range Interpretation Comments HEMOGLOBIN A1c (test code = 94185) 9.8 % HEMOGLOBIN [id number] 00:00:00 Test Item Value Reference Range Interpretation Comments HEMOGLOBIN A1c (test code = 39300) 9.8 % LIPID [id number] 00:00:00 Test Item Value Reference Range Interpretation Comments CHOLESTEROL (test code = 2210) 135 MG/DL TRIGLYCERIDES (test code = 2232) 558 MG/DL HDL CHOLESTEROL (test code = 35 MG/DL 2220) CALC LDL CHOL (test code = 2237) (NOTE) MG/DL RISK RATIO LDL/HDL (test code = (NOTE) RATIO 2238) LIPID [id number] 00:00:00 Test Item Value Reference Range Interpretation Comments CHOLESTEROL (test code = 2210) 135 MG/DL TRIGLYCERIDES (test code = 2232) 558 MG/DL HDL CHOLESTEROL (test code = 35 MG/DL 2220) CALC LDL CHOL (test code = 2237) (NOTE) MG/DL RISK RATIO LDL/HDL (test code = (NOTE) RATIO 2238) COMPREHENSIVE METABOLIC [id number] 00:00:00 Test Item Value Reference Range Interpretation Comments GLUCOSE (test code = 2217) 340 MG/DL BUN (test code = 2208) 19 MG/DL CREATININE (test code = 2214) 0.89 MG/DL eGFR AMER. (test code 84 ML/MIN/1.73 = 46203) eGFR NON- AMER. (test 72 ML/MIN/1.73 code = 54040) CALC BUN/CREAT (test code = 21 RATIO 2235) SODIUM (test code = 2231) 138 MEQ/L POTASSIUM (test code = 2228) 3.7 MEQ/L CHLORIDE (test code = 2215) 97 MEQ/L CARBON DIOXIDE (test code = 25 MEQ/L 6) CALCIUM (test code = 2209) 9.9 MG/DL PROTEIN, TOTAL (test code = 7.7 G/DL 2228) ALBUMIN (test code = 2201) 4.9 G/DL CALC GLOBULIN (test code = 2.8 G/DL 2240) CALC A/G RATIO (test code = 1.8 RATIO 2234) BILIRUBIN, TOTAL (test code = <0.2 MG/DL 2207) ALKALINE PHOSPHATASE (test 112 U/L code = 2204) AST (test code = 2218) 30 U/L ALT (test code = 2219) 27 U/L COMPREHENSIVE METABOLIC [id number] 00:00:00 Test Item Value Reference Range Interpretation Comments GLUCOSE (test code = 2217) 340 MG/DL BUN (test code = 2208) 19 MG/DL CREATININE (test code = 2214) 0.89 MG/DL eGFR AMER. (test code 84 ML/MIN/1.73 = 32901) eGFR NON- AMER. (test 72 ML/MIN/1.73 code = 22186) CALC BUN/CREAT (test code = 21 RATIO 2235) SODIUM (test code = 2231) 138 MEQ/L POTASSIUM (test code = 2228) 3.7 MEQ/L CHLORIDE (test code = 2215) 97 MEQ/L CARBON DIOXIDE (test code = 25 MEQ/L 2206) CALCIUM (test code = 2209) 9.9 MG/DL PROTEIN, TOTAL (test code = 7.7 G/DL 2229) ALBUMIN (test code = 2201) 4.9 G/DL CALC GLOBULIN (test code = 2.8 G/DL 2240) CALC A/G RATIO (test code = 1.8 RATIO 2234) BILIRUBIN, TOTAL (test code = <0.2 MG/DL 2206) ALKALINE PHOSPHATASE (test 112 U/L code = 2204) AST (test code = 2218) 30 U/L ALT (test code = 2219) 27 U/L [id number] 00:00:00 Test Item Value Reference Range Interpretation Comments TSH, THIRD GENERATION (test code 1.680 UIU/ML = 2821) [id number] 00:00:00 Test Item Value Reference Range Interpretation Comments TSH, THIRD GENERATION (test code 1.680 UIU/ML = 2821) [id number] 00:00:00 Test Item Value Reference Range Interpretation Comments TSH, THIRD GENERATION (test code 1.680 UIU/ML = 2821) MICROALBUMIN/CREATININE, RANDOM AND [id number] 00:00:00 Test Item Value Reference Range Interpretation Comments CREATININE, URINE, CONC. (test 51.5 MG/DL code = 2072) ALBUMIN, URINE, RANDOM (test code 77.9 MG/DL = 89774) CALC ALBUMIN/CREAT, RND (test code 1513 MG/G = 97576) MICROALBUMIN/CREATININE, RANDOM AND [id number] 00:00:00 Test Item Value Reference Range Interpretation Comments CREATININE, URINE, CONC. (test 51.5 MG/DL code = 2072) ALBUMIN, URINE, RANDOM (test code 77.9 MG/DL = 09540) CALC ALBUMIN/CREAT, RND (test code 1513 MG/G = 25790) HEMOGLOBIN [id number] 00:00:00 Test Item Value Reference Range Interpretation Comments HEMOGLOBIN A1c (test code = 02192) 9.8 % HEMOGLOBIN [id number] 00:00:00 Test Item Value Reference Range Interpretation Comments HEMOGLOBIN A1c (test code = 95900) 9.8 % LIPID [id number] 00:00:00 Test Item Value Reference Range Interpretation Comments CHOLESTEROL (test code = 2210) 135 MG/DL TRIGLYCERIDES (test code = 2232) 558 MG/DL HDL CHOLESTEROL (test code = 35 MG/DL 2219) CALC LDL CHOL (test code = 2237) (NOTE) MG/DL RISK RATIO LDL/HDL (test code = (NOTE) RATIO 2238) COMPREHENSIVE METABOLIC [id number] 00:00:00 Test Item Value Reference Range Interpretation Comments GLUCOSE (test code = 2217) 340 MG/DL BUN (test code = 2208) 19 MG/DL CREATININE (test code = 2214) 0.89 MG/DL eGFR AMER. (test code 84 ML/MIN/1.73 = 49533) eGFR NON- AMER. (test 72 ML/MIN/1.73 code = 24027) CALC BUN/CREAT (test code = 21 RATIO 2235) SODIUM (test code = 2231) 138 MEQ/L POTASSIUM (test code = 2228) 3.7 MEQ/L CHLORIDE (test code = 2215) 97 MEQ/L CARBON DIOXIDE (test code = 25 MEQ/L 2205) CALCIUM (test code = 2209) 9.9 MG/DL PROTEIN, TOTAL (test code = 7.7 G/DL 2228) ALBUMIN (test code = 2201) 4.9 G/DL CALC GLOBULIN (test code = 2.8 G/DL 2239) CALC A/G RATIO (test code = 1.8 RATIO 2233) BILIRUBIN, TOTAL (test code = <0.2 MG/DL 2206) ALKALINE PHOSPHATASE (test 112 U/L code = 2204) AST (test code = 2218) 30 U/L ALT (test code = 2219) 27 U/L [id number] 00:00:00 Test Item Value Reference Range Interpretation Comments TSH, THIRD GENERATION (test code 1.680 UIU/ML = 2821) [id number] 00:00:00 Test Item Value Reference Range Interpretation Comments TSH, THIRD GENERATION (test code 1.680 UIU/ML = 2821) MICROALBUMIN/CREATININE, RANDOM AND [id number] 00:00:00 Test Item Value Reference Range Interpretation Comments CREATININE, URINE, CONC. (test 51.5 MG/DL code = 2072) ALBUMIN, URINE, RANDOM (test code 77.9 MG/DL = 73745) CALC ALBUMIN/CREAT, RND (test code 1513 MG/G = 76578) HEMOGLOBIN [id number] 00:00:00 Test Item Value Reference Range Interpretation Comments HEMOGLOBIN A1c (test code = 96789) 9.8 % HEMOGLOBIN [id number] 00:00:00 Test Item Value Reference Range Interpretation Comments HEMOGLOBIN A1c (test code = 50715) 9.8 % HEMOGLOBIN [id number] 00:00:00 Test Item Value Reference Range Interpretation Comments HEMOGLOBIN A1c (test code = 76117) 9.8 % LIPID [id number] 00:00:00 Test Item Value Reference Range Interpretation Comments CHOLESTEROL (test code = 2210) 135 MG/DL TRIGLYCERIDES (test code = 2232) 558 MG/DL HDL CHOLESTEROL (test code = 35 MG/DL 2219) CALC LDL CHOL (test code = 2237) (NOTE) MG/DL RISK RATIO LDL/HDL (test code = (NOTE) RATIO 2238) LIPID [id number] 00:00:00 Test Item Value Reference Range Interpretation Comments CHOLESTEROL (test code = 2210) 265 MG/DL TRIGLYCERIDES (test code = 2232) 680 MG/DL HDL CHOLESTEROL (test code = 45 MG/DL 2220) CALC LDL CHOL (test code = 2237) (NOTE) MG/DL RISK RATIO LDL/HDL (test code = (NOTE) RATIO 2238) CBC W/AUTO [id number] 00:00:00 Test Item Value Reference Range Interpretation Comments WBC (test code = 1001) 6.3 K/UL RBC (test code = 1002) 4.48 M/UL HEMOGLOBIN (test code = 1003) 12.7 G/DL HEMATOCRIT (test code = 1004) 37.7 % MCV (test code = 1005) 84.2 fL MCH (test code = 1006) 28.3 PG MCHC (test code = 1007) 33.7 G/DL RDW (test code = 1038) 13.7 % NEUTROPHILS (test code = 1008) 64.7 % LYMPHOCYTES (test code = 1010) 25.9 % MONOCYTES (test code = 1011) 4.6 % EOSINOPHILS (test code = 1012) 4.3 % BASOPHILS (test code = 1013) 0.5 % PLATELET COUNT (test code = 1015) 323 K/UL CBC W/AUTO [id number] 00:00:00 Test Item Value Reference Range Interpretation Comments WBC (test code = 1001) 6.3 K/UL RBC (test code = 1002) 4.48 M/UL HEMOGLOBIN (test code = 1003) 12.7 G/DL HEMATOCRIT (test code = 1004) 37.7 % MCV (test code = 1005) 84.2 fL MCH (test code = 1006) 28.3 PG MCHC (test code = 1007) 33.7 G/DL RDW (test code = 1038) 13.7 % NEUTROPHILS (test code = 1008) 64.7 % LYMPHOCYTES (test code = 1010) 25.9 % MONOCYTES (test code = 1011) 4.6 % EOSINOPHILS (test code = 1012) 4.3 % BASOPHILS (test code = 1013) 0.5 % PLATELET COUNT (test code = 1015) 323 K/UL CBC W/AUTO [id number] 00:00:00 Test Item Value Reference Range Interpretation Comments WBC (test code = 1001) 6.3 K/UL RBC (test code = 1002) 4.48 M/UL HEMOGLOBIN (test code = 1003) 12.7 G/DL HEMATOCRIT (test code = 1004) 37.7 % MCV (test code = 1005) 84.2 fL MCH (test code = 1006) 28.3 PG MCHC (test code = 1007) 33.7 G/DL RDW (test code = 1038) 13.7 % NEUTROPHILS (test code = 1008) 64.7 % LYMPHOCYTES (test code = 1010) 25.9 % MONOCYTES (test code = 1011) 4.6 % EOSINOPHILS (test code = 1012) 4.3 % BASOPHILS (test code = 1013) 0.5 % PLATELET COUNT (test code = 1015) 323 K/UL HEMOGLOBIN [id number] 00:00:00 Test Item Value Reference Range Interpretation Comments HEMOGLOBIN A1c (test code = 01630) 6.6 % HEMOGLOBIN [id number] 00:00:00 Test Item Value Reference Range Interpretation Comments HEMOGLOBIN A1c (test code = 23219) 6.6 % HEMOGLOBIN [id number] 00:00:00 Test Item Value Reference Range Interpretation Comments HEMOGLOBIN A1c (test code = 56047) 6.6 % [id number] 00:00:00 Test Item Value Reference Range Interpretation Comments TSH, THIRD GENERATION (test code 1.450 UIU/ML = 2821) [id number] 00:00:00 Test Item Value Reference Range Interpretation Comments TSH, THIRD GENERATION (test code 1.450 UIU/ML = 2821) [id number] 00:00:00 Test Item Value Reference Range Interpretation Comments TSH, THIRD GENERATION (test code 1.450 UIU/ML = 2821) COMPREHENSIVE METABOLIC [id number] 00:00:00 Test Item Value Reference Range Interpretation Comments GLUCOSE (test code = 2217) 223 MG/DL BUN (test code = 2208) 19 MG/DL CREATININE (test code = 2214) 1.04 MG/DL eGFR AMER. (test code 70 ML/MIN/1.73 = 40351) eGFR NON- AMER. (test 60 ML/MIN/1.73 code = 47532) CALC BUN/CREAT (test code = 18 RATIO 2235) SODIUM (test code = 2231) 140 MEQ/L POTASSIUM (test code = 2228) 3.8 MEQ/L CHLORIDE (test code = 2215) 98 MEQ/L CARBON DIOXIDE (test code = 24 MEQ/L 2205) CALCIUM (test code = 2209) 9.9 MG/DL PROTEIN, TOTAL (test code = 7.7 G/DL 2228) ALBUMIN (test code = 2201) 5.1 G/DL CALC GLOBULIN (test code = 2.6 G/DL 2240) CALC A/G RATIO (test code = 2.0 RATIO 2234) BILIRUBIN, TOTAL (test code = 0.2 MG/DL 2206) ALKALINE PHOSPHATASE (test 100 U/L code = 2204) AST (test code = 2218) 33 U/L ALT (test code = 2219) 37 U/L COMPREHENSIVE METABOLIC [id number] 00:00:00 Test Item Value Reference Range Interpretation Comments GLUCOSE (test code = 2217) 223 MG/DL BUN (test code = 2208) 19 MG/DL CREATININE (test code = 2214) 1.04 MG/DL eGFR AMER. (test code 70 ML/MIN/1.73 = 53635) eGFR NON- AMER. (test 60 ML/MIN/1.73 code = 52718) CALC BUN/CREAT (test code = 18 RATIO 2235) SODIUM (test code = 2231) 140 MEQ/L POTASSIUM (test code = 2228) 3.8 MEQ/L CHLORIDE (test code = 2215) 98 MEQ/L CARBON DIOXIDE (test code = 24 MEQ/L 2205) CALCIUM (test code = 2209) 9.9 MG/DL PROTEIN, TOTAL (test code = 7.7 G/DL 2228) ALBUMIN (test code = 2201) 5.1 G/DL CALC GLOBULIN (test code = 2.6 G/DL 2240) CALC A/G RATIO (test code = 2.0 RATIO 2234) BILIRUBIN, TOTAL (test code = 0.2 MG/DL 2206) ALKALINE PHOSPHATASE (test 100 U/L code = 2204) AST (test code = 2218) 33 U/L ALT (test code = 2219) 37 U/L LIPID [id number] 00:00:00 Test Item Value Reference Range Interpretation Comments CHOLESTEROL (test code = 2210) 265 MG/DL TRIGLYCERIDES (test code = 2232) 680 MG/DL HDL CHOLESTEROL (test code = 45 MG/DL 2219) CALC LDL CHOL (test code = 2237) (NOTE) MG/DL RISK RATIO LDL/HDL (test code = (NOTE) RATIO 2238) LIPID [id number] 00:00:00 Test Item Value Reference Range Interpretation Comments CHOLESTEROL (test code = 2210) 265 MG/DL TRIGLYCERIDES (test code = 2232) 680 MG/DL HDL CHOLESTEROL (test code = 45 MG/DL 2220) CALC LDL CHOL (test code = 2237) (NOTE) MG/DL RISK RATIO LDL/HDL (test code = (NOTE) RATIO 2238) CBC W/AUTO [id number] 00:00:00 Test Item Value Reference Range Interpretation Comments WBC (test code = 1001) 6.3 K/UL RBC (test code = 1002) 4.48 M/UL HEMOGLOBIN (test code = 1003) 12.7 G/DL HEMATOCRIT (test code = 1004) 37.7 % MCV (test code = 1005) 84.2 fL MCH (test code = 1006) 28.3 PG MCHC (test code = 1007) 33.7 G/DL RDW (test code = 1038) 13.7 % NEUTROPHILS (test code = 1008) 64.7 % LYMPHOCYTES (test code = 1010) 25.9 % MONOCYTES (test code = 1011) 4.6 % EOSINOPHILS (test code = 1012) 4.3 % BASOPHILS (test code = 1013) 0.5 % PLATELET COUNT (test code = 1015) 323 K/UL CBC W/AUTO [id number] 00:00:00 Test Item Value Reference Range Interpretation Comments WBC (test code = 1001) 6.3 K/UL RBC (test code = 1002) 4.48 M/UL HEMOGLOBIN (test code = 1003) 12.7 G/DL HEMATOCRIT (test code = 1004) 37.7 % MCV (test code = 1005) 84.2 fL MCH (test code = 1006) 28.3 PG MCHC (test code = 1007) 33.7 G/DL RDW (test code = 1038) 13.7 % NEUTROPHILS (test code = 1008) 64.7 % LYMPHOCYTES (test code = 1010) 25.9 % MONOCYTES (test code = 1011) 4.6 % EOSINOPHILS (test code = 1012) 4.3 % BASOPHILS (test code = 1013) 0.5 % PLATELET COUNT (test code = 1015) 323 K/UL CBC W/AUTO [id number] 00:00:00 Test Item Value Reference Range Interpretation Comments WBC (test code = 1001) 6.3 K/UL RBC (test code = 1002) 4.48 M/UL HEMOGLOBIN (test code = 1003) 12.7 G/DL HEMATOCRIT (test code = 1004) 37.7 % MCV (test code = 1005) 84.2 fL MCH (test code = 1006) 28.3 PG MCHC (test code = 1007) 33.7 G/DL RDW (test code = 1038) 13.7 % NEUTROPHILS (test code = 1008) 64.7 % LYMPHOCYTES (test code = 1010) 25.9 % MONOCYTES (test code = 1011) 4.6 % EOSINOPHILS (test code = 1012) 4.3 % BASOPHILS (test code = 1013) 0.5 % PLATELET COUNT (test code = 1015) 323 K/UL HEMOGLOBIN [id number] 00:00:00 Test Item Value Reference Range Interpretation Comments HEMOGLOBIN A1c (test code = 76488) 6.6 % HEMOGLOBIN [id number] 00:00:00 Test Item Value Reference Range Interpretation Comments HEMOGLOBIN A1c (test code = 11871) 6.6 % HEMOGLOBIN [id number] 00:00:00 Test Item Value Reference Range Interpretation Comments HEMOGLOBIN A1c (test code = 60294) 6.6 % [id number] 00:00:00 Test Item Value Reference Range Interpretation Comments TSH, THIRD GENERATION (test code 1.450 UIU/ML = 2821) [id number] 00:00:00 Test Item Value Reference Range Interpretation Comments TSH, THIRD GENERATION (test code 1.450 UIU/ML = 2821) [id number] 00:00:00 Test Item Value Reference Range Interpretation Comments TSH, THIRD GENERATION (test code 1.450 UIU/ML = 2821) COMPREHENSIVE METABOLIC [id number] 00:00:00 Test Item Value Reference Range Interpretation Comments GLUCOSE (test code = 2217) 223 MG/DL BUN (test code = 2208) 19 MG/DL CREATININE (test code = 2214) 1.04 MG/DL eGFR AMER. (test code 70 ML/MIN/1.73 = 82231) eGFR NON- AMER. (test 60 ML/MIN/1.73 code = 17845) CALC BUN/CREAT (test code = 18 RATIO 2235) SODIUM (test code = 2231) 140 MEQ/L POTASSIUM (test code = 2228) 3.8 MEQ/L CHLORIDE (test code = 2215) 98 MEQ/L CARBON DIOXIDE (test code = 24 MEQ/L 2206) CALCIUM (test code = 2209) 9.9 MG/DL PROTEIN, TOTAL (test code = 7.7 G/DL 222) ALBUMIN (test code = 2201) 5.1 G/DL CALC GLOBULIN (test code = 2.6 G/DL 2240) CALC A/G RATIO (test code = 2.0 RATIO 2234) BILIRUBIN, TOTAL (test code = 0.2 MG/DL 2206) ALKALINE PHOSPHATASE (test 100 U/L code = 220) AST (test code = 2218) 33 U/L ALT (test code = 2219) 37 U/L COMPREHENSIVE METABOLIC [id number] 00:00:00 Test Item Value Reference Range Interpretation Comments GLUCOSE (test code = 2217) 223 MG/DL BUN (test code = 2208) 19 MG/DL CREATININE (test code = 2214) 1.04 MG/DL eGFR AMER. (test code 70 ML/MIN/1.73 = 69658) eGFR NON- AMER. (test 60 ML/MIN/1.73 code = 46776) CALC BUN/CREAT (test code = 18 RATIO 2235) SODIUM (test code = 2231) 140 MEQ/L POTASSIUM (test code = 2228) 3.8 MEQ/L CHLORIDE (test code = 2215) 98 MEQ/L CARBON DIOXIDE (test code = 24 MEQ/L 2206) CALCIUM (test code = 2209) 9.9 MG/DL PROTEIN, TOTAL (test code = 7.7 G/DL 2228) ALBUMIN (test code = 2201) 5.1 G/DL CALC GLOBULIN (test code = 2.6 G/DL 2240) CALC A/G RATIO (test code = 2.0 RATIO 2234) BILIRUBIN, TOTAL (test code = 0.2 MG/DL 2206) ALKALINE PHOSPHATASE (test 100 U/L code = 2204) AST (test code = 2218) 33 U/L ALT (test code = 2219) 37 U/L LIPID [id number] 00:00:00 Test Item Value Reference Range Interpretation Comments CHOLESTEROL (test code = 2210) 265 MG/DL TRIGLYCERIDES (test code = 2232) 680 MG/DL HDL CHOLESTEROL (test code = 45 MG/DL 2220) CALC LDL CHOL (test code = 2237) (NOTE) MG/DL RISK RATIO LDL/HDL (test code = (NOTE) RATIO 2238) LIPID [id number] 00:00:00 Test Item Value Reference Range Interpretation Comments CHOLESTEROL (test code = 2210) 265 MG/DL TRIGLYCERIDES (test code = 2232) 680 MG/DL HDL CHOLESTEROL (test code = 45 MG/DL 2220) CALC LDL CHOL (test code = 2237) (NOTE) MG/DL RISK RATIO LDL/HDL (test code = (NOTE) RATIO 2238) CBC W/AUTO [id number] 00:00:00 Test Item Value Reference Range Interpretation Comments WBC (test code = 1001) 6.3 K/UL RBC (test code = 1002) 4.48 M/UL HEMOGLOBIN (test code = 1003) 12.7 G/DL HEMATOCRIT (test code = 1004) 37.7 % MCV (test code = 1005) 84.2 fL MCH (test code = 1006) 28.3 PG MCHC (test code = 1007) 33.7 G/DL RDW (test code = 1038) 13.7 % NEUTROPHILS (test code = 1008) 64.7 % LYMPHOCYTES (test code = 1010) 25.9 % MONOCYTES (test code = 1011) 4.6 % EOSINOPHILS (test code = 1012) 4.3 % BASOPHILS (test code = 1013) 0.5 % PLATELET COUNT (test code = 1015) 323 K/UL CBC W/AUTO [id number] 00:00:00 Test Item Value Reference Range Interpretation Comments WBC (test code = 1001) 6.3 K/UL RBC (test code = 1002) 4.48 M/UL HEMOGLOBIN (test code = 1003) 12.7 G/DL HEMATOCRIT (test code = 1004) 37.7 % MCV (test code = 1005) 84.2 fL MCH (test code = 1006) 28.3 PG MCHC (test code = 1007) 33.7 G/DL RDW (test code = 1038) 13.7 % NEUTROPHILS (test code = 1008) 64.7 % LYMPHOCYTES (test code = 1010) 25.9 % MONOCYTES (test code = 1011) 4.6 % EOSINOPHILS (test code = 1012) 4.3 % BASOPHILS (test code = 1013) 0.5 % PLATELET COUNT (test code = 1015) 323 K/UL CBC W/AUTO [id number] 00:00:00 Test Item Value Reference Range Interpretation Comments WBC (test code = 1001) 6.3 K/UL RBC (test code = 1002) 4.48 M/UL HEMOGLOBIN (test code = 1003) 12.7 G/DL HEMATOCRIT (test code = 1004) 37.7 % MCV (test code = 1005) 84.2 fL MCH (test code = 1006) 28.3 PG MCHC (test code = 1007) 33.7 G/DL RDW (test code = 1038) 13.7 % NEUTROPHILS (test code = 1008) 64.7 % LYMPHOCYTES (test code = 1010) 25.9 % MONOCYTES (test code = 1011) 4.6 % EOSINOPHILS (test code = 1012) 4.3 % BASOPHILS (test code = 1013) 0.5 % PLATELET COUNT (test code = 1015) 323 K/UL HEMOGLOBIN [id number] 00:00:00 Test Item Value Reference Range Interpretation Comments HEMOGLOBIN A1c (test code = 53517) 6.6 % HEMOGLOBIN [id number] 00:00:00 Test Item Value Reference Range Interpretation Comments HEMOGLOBIN A1c (test code = 51966) 6.6 % HEMOGLOBIN [id number] 00:00:00 Test Item Value Reference Range Interpretation Comments HEMOGLOBIN A1c (test code = 59458) 6.6 % [id number] 00:00:00 Test Item Value Reference Range Interpretation Comments TSH, THIRD GENERATION (test code 1.450 UIU/ML = 2821) [id number] 00:00:00 Test Item Value Reference Range Interpretation Comments TSH, THIRD GENERATION (test code 1.450 UIU/ML = 2821) [id number] 00:00:00 Test Item Value Reference Range Interpretation Comments TSH, THIRD GENERATION (test code 1.450 UIU/ML = 2821) COMPREHENSIVE METABOLIC [id number] 00:00:00 Test Item Value Reference Range Interpretation Comments GLUCOSE (test code = 2217) 223 MG/DL BUN (test code = 2208) 19 MG/DL CREATININE (test code = 2214) 1.04 MG/DL eGFR AMER. (test code 70 ML/MIN/1.73 = 37714) eGFR NON- AMER. (test 60 ML/MIN/1.73 code = 10347) CALC BUN/CREAT (test code = 18 RATIO 2235) SODIUM (test code = 2231) 140 MEQ/L POTASSIUM (test code = 2228) 3.8 MEQ/L CHLORIDE (test code = 2215) 98 MEQ/L CARBON DIOXIDE (test code = 24 MEQ/L 2205) CALCIUM (test code = 2209) 9.9 MG/DL PROTEIN, TOTAL (test code = 7.7 G/DL 2228) ALBUMIN (test code = 2201) 5.1 G/DL CALC GLOBULIN (test code = 2.6 G/DL 2239) CALC A/G RATIO (test code = 2.0 RATIO 2233) BILIRUBIN, TOTAL (test code = 0.2 MG/DL 2206) ALKALINE PHOSPHATASE (test 100 U/L code = 2204) AST (test code = 2218) 33 U/L ALT (test code = 2219) 37 U/L LIPID [id number] 00:00:00 Test Item Value Reference Range Interpretation Comments CHOLESTEROL (test code = 2210) 265 MG/DL TRIGLYCERIDES (test code = 2232) 680 MG/DL HDL CHOLESTEROL (test code = 45 MG/DL 2219) CALC LDL CHOL (test code = 2237) (NOTE) MG/DL RISK RATIO LDL/HDL (test code = (NOTE) RATIO 2238) CBC W/AUTO [id number] 00:00:00 Test Item Value Reference Range Interpretation Comments WBC (test code = 1001) 6.3 K/UL RBC (test code = 1002) 4.48 M/UL HEMOGLOBIN (test code = 1003) 12.7 G/DL HEMATOCRIT (test code = 1004) 37.7 % MCV (test code = 1005) 84.2 fL MCH (test code = 1006) 28.3 PG MCHC (test code = 1007) 33.7 G/DL RDW (test code = 1038) 13.7 % NEUTROPHILS (test code = 1008) 64.7 % LYMPHOCYTES (test code = 1010) 25.9 % MONOCYTES (test code = 1011) 4.6 % EOSINOPHILS (test code = 1012) 4.3 % BASOPHILS (test code = 1013) 0.5 % PLATELET COUNT (test code = 1015) 323 K/UL CBC W/AUTO [id number] 00:00:00 Test Item Value Reference Range Interpretation Comments WBC (test code = 1001) 6.3 K/UL RBC (test code = 1002) 4.48 M/UL HEMOGLOBIN (test code = 1003) 12.7 G/DL HEMATOCRIT (test code = 1004) 37.7 % MCV (test code = 1005) 84.2 fL MCH (test code = 1006) 28.3 PG MCHC (test code = 1007) 33.7 G/DL RDW (test code = 1038) 13.7 % NEUTROPHILS (test code = 1008) 64.7 % LYMPHOCYTES (test code = 1010) 25.9 % MONOCYTES (test code = 1011) 4.6 % EOSINOPHILS (test code = 1012) 4.3 % BASOPHILS (test code = 1013) 0.5 % PLATELET COUNT (test code = 1015) 323 K/UL HEMOGLOBIN [id number] 00:00:00 Test Item Value Reference Range Interpretation Comments HEMOGLOBIN A1c (test code = 46353) 6.6 % HEMOGLOBIN [id number] 00:00:00 Test Item Value Reference Range Interpretation Comments HEMOGLOBIN A1c (test code = 06106) 6.6 % [id number] 00:00:00 Test Item Value Reference Range Interpretation Comments TSH, THIRD GENERATION (test code 1.450 UIU/ML = 2821) [id number] 00:00:00 Test Item Value Reference Range Interpretation Comments TSH, THIRD GENERATION (test code 1.450 UIU/ML = 2821) COMPREHENSIVE METABOLIC [id number] 00:00:00 Test Item Value Reference Range Interpretation Comments GLUCOSE (test code = 2217) 223 MG/DL BUN (test code = 2208) 19 MG/DL CREATININE (test code = 2214) 1.04 MG/DL eGFR AMER. (test code 70 ML/MIN/1.73 = 45079) eGFR NON- AMER. (test 60 ML/MIN/1.73 code = 96162) CALC BUN/CREAT (test code = 18 RATIO 2235) SODIUM (test code = 2231) 140 MEQ/L POTASSIUM (test code = 2228) 3.8 MEQ/L CHLORIDE (test code = 2215) 98 MEQ/L CARBON DIOXIDE (test code = 24 MEQ/L 2206) CALCIUM (test code = 2209) 9.9 MG/DL PROTEIN, TOTAL (test code = 7.7 G/DL 2228) ALBUMIN (test code = 2201) 5.1 G/DL CALC GLOBULIN (test code = 2.6 G/DL 2240) CALC A/G RATIO (test code = 2.0 RATIO 2234) BILIRUBIN, TOTAL (test code = 0.2 MG/DL 2206) ALKALINE PHOSPHATASE (test 100 U/L code = 2204) AST (test code = 2218) 33 U/L ALT (test code = 2219) 37 U/L COMPREHENSIVE METABOLIC [id number] 00:00:00 Test Item Value Reference Range Interpretation Comments GLUCOSE (test code = 2217) 223 MG/DL BUN (test code = 2208) 19 MG/DL CREATININE (test code = 2214) 1.04 MG/DL eGFR AMER. (test code 70 ML/MIN/1.73 = 70573) eGFR NON- AMER. (test 60 ML/MIN/1.73 code = 38642) CALC BUN/CREAT (test code = 18 RATIO 2235) SODIUM (test code = 2231) 140 MEQ/L POTASSIUM (test code = 2228) 3.8 MEQ/L CHLORIDE (test code = 2215) 98 MEQ/L CARBON DIOXIDE (test code = 24 MEQ/L 2206) CALCIUM (test code = 2209) 9.9 MG/DL PROTEIN, TOTAL (test code = 7.7 G/DL 2228) ALBUMIN (test code = 2201) 5.1 G/DL CALC GLOBULIN (test code = 2.6 G/DL 2240) CALC A/G RATIO (test code = 2.0 RATIO 2234) BILIRUBIN, TOTAL (test code = 0.2 MG/DL 220) ALKALINE PHOSPHATASE (test 100 U/L code = 2204) AST (test code = 2218) 33 U/L ALT (test code = 2219) 37 U/L LIPID [id number] 00:00:00 Test Item Value Reference Range Interpretation Comments CHOLESTEROL (test code = 2210) 265 MG/DL TRIGLYCERIDES (test code = 2232) 680 MG/DL HDL CHOLESTEROL (test code = 45 MG/DL 2220) CALC LDL CHOL (test code = 2237) (NOTE) MG/DL RISK RATIO LDL/HDL (test code = (NOTE) RATIO 2238) CBC W/AUTO [id number] 00:00:00 Test Item Value Reference Range Interpretation Comments WBC (test code = 1001) 6.2 K/UL RBC (test code = 1002) 4.02 M/UL HEMOGLOBIN (test code = 1003) 11.6 G/DL HEMATOCRIT (test code = 1004) 33.9 % MCV (test code = 1005) 84.3 fL MCH (test code = 1006) 28.9 PG MCHC (test code = 1007) 34.2 G/DL RDW (test code = 1038) 14.0 % NEUTROPHILS (test code = 1008) 65.6 % LYMPHOCYTES (test code = 1010) 24.2 % MONOCYTES (test code = 1011) 5.4 % EOSINOPHILS (test code = 1012) 4.3 % BASOPHILS (test code = 1013) 0.5 % PLATELET COUNT (test code = 1015) 298 K/UL CBC W/AUTO [id number] 00:00:00 Test Item Value Reference Range Interpretation Comments WBC (test code = 1001) 6.2 K/UL RBC (test code = 1002) 4.02 M/UL HEMOGLOBIN (test code = 1003) 11.6 G/DL HEMATOCRIT (test code = 1004) 33.9 % MCV (test code = 1005) 84.3 fL MCH (test code = 1006) 28.9 PG MCHC (test code = 1007) 34.2 G/DL RDW (test code = 1038) 14.0 % NEUTROPHILS (test code = 1008) 65.6 % LYMPHOCYTES (test code = 1010) 24.2 % MONOCYTES (test code = 1011) 5.4 % EOSINOPHILS (test code = 1012) 4.3 % BASOPHILS (test code = 1013) 0.5 % PLATELET COUNT (test code = 1015) 298 K/UL CBC W/AUTO [id number] 00:00:00 Test Item Value Reference Range Interpretation Comments WBC (test code = 1001) 6.2 K/UL RBC (test code = 1002) 4.02 M/UL HEMOGLOBIN (test code = 1003) 11.6 G/DL HEMATOCRIT (test code = 1004) 33.9 % MCV (test code = 1005) 84.3 fL MCH (test code = 1006) 28.9 PG MCHC (test code = 1007) 34.2 G/DL RDW (test code = 1038) 14.0 % NEUTROPHILS (test code = 1008) 65.6 % LYMPHOCYTES (test code = 1010) 24.2 % MONOCYTES (test code = 1011) 5.4 % EOSINOPHILS (test code = 1012) 4.3 % BASOPHILS (test code = 1013) 0.5 % PLATELET COUNT (test code = 1015) 298 K/UL [id number] 00:00:00 Test Item Value Reference Range Interpretation Comments TSH, THIRD GENERATION (test code 1.300 UIU/ML = 2821) [id number] 00:00:00 Test Item Value Reference Range Interpretation Comments TSH, THIRD GENERATION (test code 1.300 UIU/ML = 2821) [id number] 00:00:00 Test Item Value Reference Range Interpretation Comments TSH, THIRD GENERATION (test code 1.300 UIU/ML = 2821) LIPID [id number] 00:00:00 Test Item Value Reference Range Interpretation Comments CHOLESTEROL (test code = 2210) 273 MG/DL TRIGLYCERIDES (test code = 2232) 952 MG/DL HDL CHOLESTEROL (test code = 42 MG/DL 2220) CALC LDL CHOL (test code = 2237) (NOTE) MG/DL RISK RATIO LDL/HDL (test code = (NOTE) RATIO 2238) LIPID [id number] 00:00:00 Test Item Value Reference Range Interpretation Comments CHOLESTEROL (test code = 2210) 273 MG/DL TRIGLYCERIDES (test code = 2232) 952 MG/DL HDL CHOLESTEROL (test code = 42 MG/DL 2220) CALC LDL CHOL (test code = 2237) (NOTE) MG/DL RISK RATIO LDL/HDL (test code = (NOTE) RATIO 2238) HEMOGLOBIN [id number] 00:00:00 Test Item Value Reference Range Interpretation Comments HEMOGLOBIN A1c (test code = 55480) 6.5 % HEMOGLOBIN [id number] 00:00:00 Test Item Value Reference Range Interpretation Comments HEMOGLOBIN A1c (test code = 98511) 6.5 % HEMOGLOBIN [id number] 00:00:00 Test Item Value Reference Range Interpretation Comments HEMOGLOBIN A1c (test code = 85038) 6.5 % COMPREHENSIVE METABOLIC [id number] 00:00:00 Test Item Value Reference Range Interpretation Comments GLUCOSE (test code = 2217) 172 MG/DL BUN (test code = 2208) 31 MG/DL CREATININE (test code = 2214) 1.54 MG/DL eGFR AMER. (test code 43 ML/MIN/1.73 = 30893) eGFR NON- AMER. (test 37 ML/MIN/1.73 code = 38896) CALC BUN/CREAT (test code = 20 RATIO 2235) SODIUM (test code = 2231) 139 MEQ/L POTASSIUM (test code = 2228) 4.2 MEQ/L CHLORIDE (test code = 2215) 99 MEQ/L CARBON DIOXIDE (test code = 27 MEQ/L 2205) CALCIUM (test code = 2209) 10.7 MG/DL PROTEIN, TOTAL (test code = 8.1 G/DL 2228) ALBUMIN (test code = 2201) 5.2 G/DL CALC GLOBULIN (test code = 2.9 G/DL 0) CALC A/G RATIO (test code = 1.8 RATIO 2234) BILIRUBIN, TOTAL (test code = <0.2 MG/DL 2206) ALKALINE PHOSPHATASE (test 104 U/L code = 2204) AST (test code = 2218) 35 U/L ALT (test code = 2219) 55 U/L COMPREHENSIVE METABOLIC [id number] 00:00:00 Test Item Value Reference Range Interpretation Comments GLUCOSE (test code = 2217) 172 MG/DL BUN (test code = 2208) 31 MG/DL CREATININE (test code = 2214) 1.54 MG/DL eGFR AMER. (test code 43 ML/MIN/1.73 = 90371) eGFR NON- AMER. (test 37 ML/MIN/1.73 code = 75730) CALC BUN/CREAT (test code = 20 RATIO 2235) SODIUM (test code = 2231) 139 MEQ/L POTASSIUM (test code = 2228) 4.2 MEQ/L CHLORIDE (test code = 2215) 99 MEQ/L CARBON DIOXIDE (test code = 27 MEQ/L 2205) CALCIUM (test code = 2209) 10.7 MG/DL PROTEIN, TOTAL (test code = 8.1 G/DL 2228) ALBUMIN (test code = 2201) 5.2 G/DL CALC GLOBULIN (test code = 2.9 G/DL 2239) CALC A/G RATIO (test code = 1.8 RATIO 2233) BILIRUBIN, TOTAL (test code = <0.2 MG/DL 2206) ALKALINE PHOSPHATASE (test 104 U/L code = 2204) AST (test code = 2218) 35 U/L ALT (test code = 2219) 55 U/L CBC W/AUTO [id number] 00:00:00 Test Item Value Reference Range Interpretation Comments WBC (test code = 1001) 6.2 K/UL RBC (test code = 1002) 4.02 M/UL HEMOGLOBIN (test code = 1003) 11.6 G/DL HEMATOCRIT (test code = 1004) 33.9 % MCV (test code = 1005) 84.3 fL MCH (test code = 1006) 28.9 PG MCHC (test code = 1007) 34.2 G/DL RDW (test code = 1038) 14.0 % NEUTROPHILS (test code = 1008) 65.6 % LYMPHOCYTES (test code = 1010) 24.2 % MONOCYTES (test code = 1011) 5.4 % EOSINOPHILS (test code = 1012) 4.3 % BASOPHILS (test code = 1013) 0.5 % PLATELET COUNT (test code = 1015) 298 K/UL CBC W/AUTO [id number] 00:00:00 Test Item Value Reference Range Interpretation Comments WBC (test code = 1001) 6.2 K/UL RBC (test code = 1002) 4.02 M/UL HEMOGLOBIN (test code = 1003) 11.6 G/DL HEMATOCRIT (test code = 1004) 33.9 % MCV (test code = 1005) 84.3 fL MCH (test code = 1006) 28.9 PG MCHC (test code = 1007) 34.2 G/DL RDW (test code = 1038) 14.0 % NEUTROPHILS (test code = 1008) 65.6 % LYMPHOCYTES (test code = 1010) 24.2 % MONOCYTES (test code = 1011) 5.4 % EOSINOPHILS (test code = 1012) 4.3 % BASOPHILS (test code = 1013) 0.5 % PLATELET COUNT (test code = 1015) 298 K/UL CBC W/AUTO [id number] 00:00:00 Test Item Value Reference Range Interpretation Comments WBC (test code = 1001) 6.2 K/UL RBC (test code = 1002) 4.02 M/UL HEMOGLOBIN (test code = 1003) 11.6 G/DL HEMATOCRIT (test code = 1004) 33.9 % MCV (test code = 1005) 84.3 fL MCH (test code = 1006) 28.9 PG MCHC (test code = 1007) 34.2 G/DL RDW (test code = 1038) 14.0 % NEUTROPHILS (test code = 1008) 65.6 % LYMPHOCYTES (test code = 1010) 24.2 % MONOCYTES (test code = 1011) 5.4 % EOSINOPHILS (test code = 1012) 4.3 % BASOPHILS (test code = 1013) 0.5 % PLATELET COUNT (test code = 1015) 298 K/UL [id number] 00:00:00 Test Item Value Reference Range Interpretation Comments TSH, THIRD GENERATION (test code 1.300 UIU/ML = 2821) [id number] 00:00:00 Test Item Value Reference Range Interpretation Comments TSH, THIRD GENERATION (test code 1.300 UIU/ML = 2821) [id number] 00:00:00 Test Item Value Reference Range Interpretation Comments TSH, THIRD GENERATION (test code 1.300 UIU/ML = 2821) LIPID [id number] 00:00:00 Test Item Value Reference Range Interpretation Comments CHOLESTEROL (test code = 2210) 273 MG/DL TRIGLYCERIDES (test code = 2232) 952 MG/DL HDL CHOLESTEROL (test code = 42 MG/DL 2220) CALC LDL CHOL (test code = 2237) (NOTE) MG/DL RISK RATIO LDL/HDL (test code = (NOTE) RATIO 2238) LIPID [id number] 00:00:00 Test Item Value Reference Range Interpretation Comments CHOLESTEROL (test code = 2210) 273 MG/DL TRIGLYCERIDES (test code = 2232) 952 MG/DL HDL CHOLESTEROL (test code = 42 MG/DL 2219) CALC LDL CHOL (test code = 2237) (NOTE) MG/DL RISK RATIO LDL/HDL (test code = (NOTE) RATIO 2238) HEMOGLOBIN [id number] 00:00:00 Test Item Value Reference Range Interpretation Comments HEMOGLOBIN A1c (test code = 50475) 6.5 % HEMOGLOBIN [id number] 00:00:00 Test Item Value Reference Range Interpretation Comments HEMOGLOBIN A1c (test code = 41143) 6.5 % HEMOGLOBIN [id number] 00:00:00 Test Item Value Reference Range Interpretation Comments HEMOGLOBIN A1c (test code = 84068) 6.5 % COMPREHENSIVE METABOLIC [id number] 00:00:00 Test Item Value Reference Range Interpretation Comments GLUCOSE (test code = 2217) 172 MG/DL BUN (test code = 2208) 31 MG/DL CREATININE (test code = 2214) 1.54 MG/DL eGFR AMER. (test code 43 ML/MIN/1.73 = 50693) eGFR NON- AMER. (test 37 ML/MIN/1.73 code = 17378) CALC BUN/CREAT (test code = 20 RATIO 2235) SODIUM (test code = 2231) 139 MEQ/L POTASSIUM (test code = 2228) 4.2 MEQ/L CHLORIDE (test code = 2215) 99 MEQ/L CARBON DIOXIDE (test code = 27 MEQ/L 2205) CALCIUM (test code = 2209) 10.7 MG/DL PROTEIN, TOTAL (test code = 8.1 G/DL 2228) ALBUMIN (test code = 2201) 5.2 G/DL CALC GLOBULIN (test code = 2.9 G/DL 2239) CALC A/G RATIO (test code = 1.8 RATIO 2234) BILIRUBIN, TOTAL (test code = <0.2 MG/DL 2206) ALKALINE PHOSPHATASE (test 104 U/L code = 2204) AST (test code = 2218) 35 U/L ALT (test code = 2219) 55 U/L COMPREHENSIVE METABOLIC [id number] 00:00:00 Test Item Value Reference Range Interpretation Comments GLUCOSE (test code = 2217) 172 MG/DL BUN (test code = 2208) 31 MG/DL CREATININE (test code = 2214) 1.54 MG/DL eGFR AMER. (test code 43 ML/MIN/1.73 = 37988) eGFR NON- AMER. (test 37 ML/MIN/1.73 code = 47931) CALC BUN/CREAT (test code = 20 RATIO 2235) SODIUM (test code = 2231) 139 MEQ/L POTASSIUM (test code = 2228) 4.2 MEQ/L CHLORIDE (test code = 2215) 99 MEQ/L CARBON DIOXIDE (test code = 27 MEQ/L 2205) CALCIUM (test code = 2209) 10.7 MG/DL PROTEIN, TOTAL (test code = 8.1 G/DL 2228) ALBUMIN (test code = 2201) 5.2 G/DL CALC GLOBULIN (test code = 2.9 G/DL 2239) CALC A/G RATIO (test code = 1.8 RATIO 2233) BILIRUBIN, TOTAL (test code = <0.2 MG/DL 2206) ALKALINE PHOSPHATASE (test 104 U/L code = 2204) AST (test code = 2218) 35 U/L ALT (test code = 2219) 55 U/L CBC W/AUTO [id number] 00:00:00 Test Item Value Reference Range Interpretation Comments WBC (test code = 1001) 6.2 K/UL RBC (test code = 1002) 4.02 M/UL HEMOGLOBIN (test code = 1003) 11.6 G/DL HEMATOCRIT (test code = 1004) 33.9 % MCV (test code = 1005) 84.3 fL MCH (test code = 1006) 28.9 PG MCHC (test code = 1007) 34.2 G/DL RDW (test code = 1038) 14.0 % NEUTROPHILS (test code = 1008) 65.6 % LYMPHOCYTES (test code = 1010) 24.2 % MONOCYTES (test code = 1011) 5.4 % EOSINOPHILS (test code = 1012) 4.3 % BASOPHILS (test code = 1013) 0.5 % PLATELET COUNT (test code = 1015) 298 K/UL CBC W/AUTO [id number] 00:00:00 Test Item Value Reference Range Interpretation Comments WBC (test code = 1001) 6.2 K/UL RBC (test code = 1002) 4.02 M/UL HEMOGLOBIN (test code = 1003) 11.6 G/DL HEMATOCRIT (test code = 1004) 33.9 % MCV (test code = 1005) 84.3 fL MCH (test code = 1006) 28.9 PG MCHC (test code = 1007) 34.2 G/DL RDW (test code = 1038) 14.0 % NEUTROPHILS (test code = 1008) 65.6 % LYMPHOCYTES (test code = 1010) 24.2 % MONOCYTES (test code = 1011) 5.4 % EOSINOPHILS (test code = 1012) 4.3 % BASOPHILS (test code = 1013) 0.5 % PLATELET COUNT (test code = 1015) 298 K/UL CBC W/AUTO [id number] 00:00:00 Test Item Value Reference Range Interpretation Comments WBC (test code = 1001) 6.2 K/UL RBC (test code = 1002) 4.02 M/UL HEMOGLOBIN (test code = 1003) 11.6 G/DL HEMATOCRIT (test code = 1004) 33.9 % MCV (test code = 1005) 84.3 fL MCH (test code = 1006) 28.9 PG MCHC (test code = 1007) 34.2 G/DL RDW (test code = 1038) 14.0 % NEUTROPHILS (test code = 1008) 65.6 % LYMPHOCYTES (test code = 1010) 24.2 % MONOCYTES (test code = 1011) 5.4 % EOSINOPHILS (test code = 1012) 4.3 % BASOPHILS (test code = 1013) 0.5 % PLATELET COUNT (test code = 1015) 298 K/UL [id number] 00:00:00 Test Item Value Reference Range Interpretation Comments TSH, THIRD GENERATION (test code 1.300 UIU/ML = 2821) [id number] 00:00:00 Test Item Value Reference Range Interpretation Comments TSH, THIRD GENERATION (test code 1.300 UIU/ML = 2821) [id number] 00:00:00 Test Item Value Reference Range Interpretation Comments TSH, THIRD GENERATION (test code 1.300 UIU/ML = 2821) LIPID [id number] 00:00:00 Test Item Value Reference Range Interpretation Comments CHOLESTEROL (test code = 2210) 273 MG/DL TRIGLYCERIDES (test code = 2232) 952 MG/DL HDL CHOLESTEROL (test code = 42 MG/DL 2220) CALC LDL CHOL (test code = 2237) (NOTE) MG/DL RISK RATIO LDL/HDL (test code = (NOTE) RATIO 2238) LIPID [id number] 00:00:00 Test Item Value Reference Range Interpretation Comments CHOLESTEROL (test code = 2210) 273 MG/DL TRIGLYCERIDES (test code = 2232) 952 MG/DL HDL CHOLESTEROL (test code = 42 MG/DL 2220) CALC LDL CHOL (test code = 2237) (NOTE) MG/DL RISK RATIO LDL/HDL (test code = (NOTE) RATIO 2238) HEMOGLOBIN [id number] 00:00:00 Test Item Value Reference Range Interpretation Comments HEMOGLOBIN A1c (test code = 96268) 6.5 % HEMOGLOBIN [id number] 00:00:00 Test Item Value Reference Range Interpretation Comments HEMOGLOBIN A1c (test code = 23481) 6.5 % COMPREHENSIVE METABOLIC [id number] 00:00:00 Test Item Value Reference Range Interpretation Comments GLUCOSE (test code = 2217) 172 MG/DL BUN (test code = 2208) 31 MG/DL CREATININE (test code = 2214) 1.54 MG/DL eGFR AMER. (test code 43 ML/MIN/1.73 = 45041) eGFR NON- AMER. (test 37 ML/MIN/1.73 code = 68832) CALC BUN/CREAT (test code = 20 RATIO 2235) SODIUM (test code = 2231) 139 MEQ/L POTASSIUM (test code = 2228) 4.2 MEQ/L CHLORIDE (test code = 2215) 99 MEQ/L CARBON DIOXIDE (test code = 27 MEQ/L 2205) CALCIUM (test code = 2209) 10.7 MG/DL PROTEIN, TOTAL (test code = 8.1 G/DL 2228) ALBUMIN (test code = 2201) 5.2 G/DL CALC GLOBULIN (test code = 2.9 G/DL 0) CALC A/G RATIO (test code = 1.8 RATIO 2234) BILIRUBIN, TOTAL (test code = <0.2 MG/DL 2206) ALKALINE PHOSPHATASE (test 104 U/L code = 2204) AST (test code = 2218) 35 U/L ALT (test code = 2219) 55 U/L CBC W/AUTO [id number] 00:00:00 Test Item Value Reference Range Interpretation Comments WBC (test code = 1001) 6.2 K/UL RBC (test code = 1002) 4.02 M/UL HEMOGLOBIN (test code = 1003) 11.6 G/DL HEMATOCRIT (test code = 1004) 33.9 % MCV (test code = 1005) 84.3 fL MCH (test code = 1006) 28.9 PG MCHC (test code = 1007) 34.2 G/DL RDW (test code = 1038) 14.0 % NEUTROPHILS (test code = 1008) 65.6 % LYMPHOCYTES (test code = 1010) 24.2 % MONOCYTES (test code = 1011) 5.4 % EOSINOPHILS (test code = 1012) 4.3 % BASOPHILS (test code = 1013) 0.5 % PLATELET COUNT (test code = 1015) 298 K/UL CBC W/AUTO [id number] 00:00:00 Test Item Value Reference Range Interpretation Comments WBC (test code = 1001) 6.2 K/UL RBC (test code = 1002) 4.02 M/UL HEMOGLOBIN (test code = 1003) 11.6 G/DL HEMATOCRIT (test code = 1004) 33.9 % MCV (test code = 1005) 84.3 fL MCH (test code = 1006) 28.9 PG MCHC (test code = 1007) 34.2 G/DL RDW (test code = 1038) 14.0 % NEUTROPHILS (test code = 1008) 65.6 % LYMPHOCYTES (test code = 1010) 24.2 % MONOCYTES (test code = 1011) 5.4 % EOSINOPHILS (test code = 1012) 4.3 % BASOPHILS (test code = 1013) 0.5 % PLATELET COUNT (test code = 1015) 298 K/UL [id number] 00:00:00 Test Item Value Reference Range Interpretation Comments TSH, THIRD GENERATION (test code 1.300 UIU/ML = 2821) [id number] 00:00:00 Test Item Value Reference Range Interpretation Comments TSH, THIRD GENERATION (test code 1.300 UIU/ML = 2821) LIPID [id number] 00:00:00 Test Item Value Reference Range Interpretation Comments CHOLESTEROL (test code = 2210) 273 MG/DL TRIGLYCERIDES (test code = 2232) 952 MG/DL HDL CHOLESTEROL (test code = 42 MG/DL 2219) CALC LDL CHOL (test code = 2237) (NOTE) MG/DL RISK RATIO LDL/HDL (test code = (NOTE) RATIO 2238) HEMOGLOBIN [id number] 00:00:00 Test Item Value Reference Range Interpretation Comments HEMOGLOBIN A1c (test code = 74178) 6.5 % HEMOGLOBIN [id number] 00:00:00 Test Item Value Reference Range Interpretation Comments HEMOGLOBIN A1c (test code = 22014) 6.5 % HEMOGLOBIN [id number] 00:00:00 Test Item Value Reference Range Interpretation Comments HEMOGLOBIN A1c (test code = 44877) 6.5 % COMPREHENSIVE METABOLIC [id number] 00:00:00 Test Item Value Reference Range Interpretation Comments GLUCOSE (test code = 2217) 172 MG/DL BUN (test code = 2208) 31 MG/DL CREATININE (test code = 2214) 1.54 MG/DL eGFR AMER. (test code 43 ML/MIN/1.73 = 68412) eGFR NON- AMER. (test 37 ML/MIN/1.73 code = 80174) CALC BUN/CREAT (test code = 20 RATIO 2235) SODIUM (test code = 2231) 139 MEQ/L POTASSIUM (test code = 2228) 4.2 MEQ/L CHLORIDE (test code = 2215) 99 MEQ/L CARBON DIOXIDE (test code = 27 MEQ/L 2205) CALCIUM (test code = 2209) 10.7 MG/DL PROTEIN, TOTAL (test code = 8.1 G/DL 2228) ALBUMIN (test code = 2201) 5.2 G/DL CALC GLOBULIN (test code = 2.9 G/DL 2239) CALC A/G RATIO (test code = 1.8 RATIO 2234) BILIRUBIN, TOTAL (test code = <0.2 MG/DL 2206) ALKALINE PHOSPHATASE (test 104 U/L code = 2204) AST (test code = 2218) 35 U/L ALT (test code = 2219) 55 U/L COMPREHENSIVE METABOLIC [id number] 00:00:00 Test Item Value Reference Range Interpretation Comments GLUCOSE (test code = 2217) 172 MG/DL BUN (test code = 2208) 31 MG/DL CREATININE (test code = 2214) 1.54 MG/DL eGFR AMER. (test code 43 ML/MIN/1.73 = 59055) eGFR NON- AMER. (test 37 ML/MIN/1.73 code = 32496) CALC BUN/CREAT (test code = 20 RATIO 2235) SODIUM (test code = 2231) 139 MEQ/L POTASSIUM (test code = 2228) 4.2 MEQ/L CHLORIDE (test code = 2215) 99 MEQ/L CARBON DIOXIDE (test code = 27 MEQ/L 2205) CALCIUM (test code = 2209) 10.7 MG/DL PROTEIN, TOTAL (test code = 8.1 G/DL 2228) ALBUMIN (test code = 2201) 5.2 G/DL CALC GLOBULIN (test code = 2.9 G/DL 224) CALC A/G RATIO (test code = 1.8 RATIO 2234) BILIRUBIN, TOTAL (test code = <0.2 MG/DL 2206) ALKALINE PHOSPHATASE (test 104 U/L code = 2204) AST (test code = 2218) 35 U/L ALT (test code = 2219) 55 U/L LIPID [id number] 00:00:00 Test Item Value Reference Range Interpretation Comments CHOLESTEROL (test code = 2210) 147 MG/DL TRIGLYCERIDES (test code = 2232) 518 MG/DL HDL CHOLESTEROL (test code = 35 MG/DL 2220) CALC LDL CHOL (test code = 2237) (NOTE) MG/DL RISK RATIO LDL/HDL (test code = (NOTE) RATIO 2238) LIPID [id number] 00:00:00 Test Item Value Reference Range Interpretation Comments CHOLESTEROL (test code = 2210) 147 MG/DL TRIGLYCERIDES (test code = 2232) 518 MG/DL HDL CHOLESTEROL (test code = 35 MG/DL 2220) CALC LDL CHOL (test code = 2237) (NOTE) MG/DL RISK RATIO LDL/HDL (test code = (NOTE) RATIO 2238) COMPREHENSIVE METABOLIC [id number] 00:00:00 Test Item Value Reference Range Interpretation Comments GLUCOSE (test code = 2217) 107 MG/DL BUN (test code = 2208) 19 MG/DL CREATININE (test code = 2214) 0.91 MG/DL eGFR AMER. (test code 82 ML/MIN/1.73 = 56673) eGFR NON- AMER. (test 71 ML/MIN/1.73 code = 38776) CALC BUN/CREAT (test code = 21 RATIO 2235) SODIUM (test code = 2231) 138 MEQ/L POTASSIUM (test code = 2228) 3.9 MEQ/L CHLORIDE (test code = 2215) 97 MEQ/L CARBON DIOXIDE (test code = 28 MEQ/L 2206) CALCIUM (test code = 2209) 9.8 MG/DL PROTEIN, TOTAL (test code = 7.7 G/DL 222) ALBUMIN (test code = 2201) 4.9 G/DL CALC GLOBULIN (test code = 2.8 G/DL 2240) CALC A/G RATIO (test code = 1.8 RATIO 2234) BILIRUBIN, TOTAL (test code = <0.2 MG/DL 2206) ALKALINE PHOSPHATASE (test 97 U/L code = 220) AST (test code = 2218) 18 U/L ALT (test code = 2219) 22 U/L COMPREHENSIVE METABOLIC [id number] 00:00:00 Test Item Value Reference Range Interpretation Comments GLUCOSE (test code = 2217) 107 MG/DL BUN (test code = 2208) 19 MG/DL CREATININE (test code = 2214) 0.91 MG/DL eGFR AMER. (test code 82 ML/MIN/1.73 = 08435) eGFR NON- AMER. (test 71 ML/MIN/1.73 code = 85374) CALC BUN/CREAT (test code = 21 RATIO 2235) SODIUM (test code = 2231) 138 MEQ/L POTASSIUM (test code = 2228) 3.9 MEQ/L CHLORIDE (test code = 2215) 97 MEQ/L CARBON DIOXIDE (test code = 28 MEQ/L 2206) CALCIUM (test code = 2209) 9.8 MG/DL PROTEIN, TOTAL (test code = 7.7 G/DL 2228) ALBUMIN (test code = 2201) 4.9 G/DL CALC GLOBULIN (test code = 2.8 G/DL 2240) CALC A/G RATIO (test code = 1.8 RATIO 2234) BILIRUBIN, TOTAL (test code = <0.2 MG/DL 2206) ALKALINE PHOSPHATASE (test 97 U/L code = 2204) AST (test code = 2218) 18 U/L ALT (test code = 2219) 22 U/L LIPID [id number] 00:00:00 Test Item Value Reference Range Interpretation Comments CHOLESTEROL (test code = 2210) 147 MG/DL TRIGLYCERIDES (test code = 2232) 518 MG/DL HDL CHOLESTEROL (test code = 35 MG/DL 2220) CALC LDL CHOL (test code = 2237) (NOTE) MG/DL RISK RATIO LDL/HDL (test code = (NOTE) RATIO 2238) LIPID [id number] 00:00:00 Test Item Value Reference Range Interpretation Comments CHOLESTEROL (test code = 2210) 147 MG/DL TRIGLYCERIDES (test code = 2232) 518 MG/DL HDL CHOLESTEROL (test code = 35 MG/DL 2220) CALC LDL CHOL (test code = 2237) (NOTE) MG/DL RISK RATIO LDL/HDL (test code = (NOTE) RATIO 2238) COMPREHENSIVE METABOLIC [id number] 00:00:00 Test Item Value Reference Range Interpretation Comments GLUCOSE (test code = 2217) 107 MG/DL BUN (test code = 2208) 19 MG/DL CREATININE (test code = 2214) 0.91 MG/DL eGFR AMER. (test code 82 ML/MIN/1.73 = 00939) eGFR NON- AMER. (test 71 ML/MIN/1.73 code = 00926) CALC BUN/CREAT (test code = 21 RATIO 2235) SODIUM (test code = 2231) 138 MEQ/L POTASSIUM (test code = 2228) 3.9 MEQ/L CHLORIDE (test code = 2215) 97 MEQ/L CARBON DIOXIDE (test code = 28 MEQ/L 2205) CALCIUM (test code = 2209) 9.8 MG/DL PROTEIN, TOTAL (test code = 7.7 G/DL 2228) ALBUMIN (test code = 2201) 4.9 G/DL CALC GLOBULIN (test code = 2.8 G/DL 2240) CALC A/G RATIO (test code = 1.8 RATIO 2234) BILIRUBIN, TOTAL (test code = <0.2 MG/DL 2206) ALKALINE PHOSPHATASE (test 97 U/L code = 2204) AST (test code = 2218) 18 U/L ALT (test code = 2219) 22 U/L COMPREHENSIVE METABOLIC [id number] 00:00:00 Test Item Value Reference Range Interpretation Comments GLUCOSE (test code = 2217) 107 MG/DL BUN (test code = 2208) 19 MG/DL CREATININE (test code = 2214) 0.91 MG/DL eGFR AMER. (test code 82 ML/MIN/1.73 = 50157) eGFR NON- AMER. (test 71 ML/MIN/1.73 code = 32876) CALC BUN/CREAT (test code = 21 RATIO 2235) SODIUM (test code = 2231) 138 MEQ/L POTASSIUM (test code = 2228) 3.9 MEQ/L CHLORIDE (test code = 2215) 97 MEQ/L CARBON DIOXIDE (test code = 28 MEQ/L 220) CALCIUM (test code = 2209) 9.8 MG/DL PROTEIN, TOTAL (test code = 7.7 G/DL 2228) ALBUMIN (test code = 2201) 4.9 G/DL CALC GLOBULIN (test code = 2.8 G/DL 2240) CALC A/G RATIO (test code = 1.8 RATIO 2234) BILIRUBIN, TOTAL (test code = <0.2 MG/DL 2206) ALKALINE PHOSPHATASE (test 97 U/L code = 2204) AST (test code = 2218) 18 U/L ALT (test code = 2219) 22 U/L LIPID [id number] 00:00:00 Test Item Value Reference Range Interpretation Comments CHOLESTEROL (test code = 2210) 147 MG/DL TRIGLYCERIDES (test code = 2232) 518 MG/DL HDL CHOLESTEROL (test code = 35 MG/DL 2220) CALC LDL CHOL (test code = 2237) (NOTE) MG/DL RISK RATIO LDL/HDL (test code = (NOTE) RATIO 2238) LIPID [id number] 00:00:00 Test Item Value Reference Range Interpretation Comments CHOLESTEROL (test code = 2210) 147 MG/DL TRIGLYCERIDES (test code = 2232) 518 MG/DL HDL CHOLESTEROL (test code = 35 MG/DL 2220) CALC LDL CHOL (test code = 2237) (NOTE) MG/DL RISK RATIO LDL/HDL (test code = (NOTE) RATIO 2238) COMPREHENSIVE METABOLIC [id number] 00:00:00 Test Item Value Reference Range Interpretation Comments GLUCOSE (test code = 2217) 107 MG/DL BUN (test code = 2208) 19 MG/DL CREATININE (test code = 2214) 0.91 MG/DL eGFR AMER. (test code 82 ML/MIN/1.73 = 47808) eGFR NON- AMER. (test 71 ML/MIN/1.73 code = 39222) CALC BUN/CREAT (test code = 21 RATIO 2235) SODIUM (test code = 2231) 138 MEQ/L POTASSIUM (test code = 2228) 3.9 MEQ/L CHLORIDE (test code = 2215) 97 MEQ/L CARBON DIOXIDE (test code = 28 MEQ/L 2205) CALCIUM (test code = 2209) 9.8 MG/DL PROTEIN, TOTAL (test code = 7.7 G/DL 2228) ALBUMIN (test code = 220) 4.9 G/DL CALC GLOBULIN (test code = 2.8 G/DL 2239) CALC A/G RATIO (test code = 1.8 RATIO 2233) BILIRUBIN, TOTAL (test code = <0.2 MG/DL 2206) ALKALINE PHOSPHATASE (test 97 U/L code = 2204) AST (test code = 2218) 18 U/L ALT (test code = 2219) 22 U/L LIPID [id number] 00:00:00 Test Item Value Reference Range Interpretation Comments CHOLESTEROL (test code = 2210) 147 MG/DL TRIGLYCERIDES (test code = 2232) 518 MG/DL HDL CHOLESTEROL (test code = 35 MG/DL 0) CALC LDL CHOL (test code = 2237) (NOTE) MG/DL RISK RATIO LDL/HDL (test code = (NOTE) RATIO 2238) COMPREHENSIVE METABOLIC [id number] 00:00:00 Test Item Value Reference Range Interpretation Comments GLUCOSE (test code = 2217) 107 MG/DL BUN (test code = 2208) 19 MG/DL CREATININE (test code = 2214) 0.91 MG/DL eGFR AMER. (test code 82 ML/MIN/1.73 = 87166) eGFR NON- AMER. (test 71 ML/MIN/1.73 code = 05333) CALC BUN/CREAT (test code = 21 RATIO 2235) SODIUM (test code = 2231) 138 MEQ/L POTASSIUM (test code = 2228) 3.9 MEQ/L CHLORIDE (test code = 2215) 97 MEQ/L CARBON DIOXIDE (test code = 28 MEQ/L 2206) CALCIUM (test code = 2209) 9.8 MG/DL PROTEIN, TOTAL (test code = 7.7 G/DL 222) ALBUMIN (test code = 2201) 4.9 G/DL CALC GLOBULIN (test code = 2.8 G/DL 2240) CALC A/G RATIO (test code = 1.8 RATIO 2234) BILIRUBIN, TOTAL (test code = <0.2 MG/DL 2206) ALKALINE PHOSPHATASE (test 97 U/L code = 2204) AST (test code = 2218) 18 U/L ALT (test code = 2219) 22 U/L COMPREHENSIVE METABOLIC [id number] 00:00:00 Test Item Value Reference Range Interpretation Comments GLUCOSE (test code = 2217) 107 MG/DL BUN (test code = 2208) 19 MG/DL CREATININE (test code = 2214) 0.91 MG/DL eGFR AMER. (test code 82 ML/MIN/1.73 = 70953) eGFR NON- AMER. (test 71 ML/MIN/1.73 code = 92344) CALC BUN/CREAT (test code = 21 RATIO 2235) SODIUM (test code = 2231) 138 MEQ/L POTASSIUM (test code = 2228) 3.9 MEQ/L CHLORIDE (test code = 2215) 97 MEQ/L CARBON DIOXIDE (test code = 28 MEQ/L 2205) CALCIUM (test code = 2209) 9.8 MG/DL PROTEIN, TOTAL (test code = 7.7 G/DL 2228) ALBUMIN (test code = 2201) 4.9 G/DL CALC GLOBULIN (test code = 2.8 G/DL 2240) CALC A/G RATIO (test code = 1.8 RATIO 2234) BILIRUBIN, TOTAL (test code = <0.2 MG/DL 2206) ALKALINE PHOSPHATASE (test 97 U/L code = 2204) AST (test code = 2218) 18 U/L ALT (test code = 2219) 22 U/L HEMOGLOBIN [id number] 00:00:00 Test Item Value Reference Range Interpretation Comments HEMOGLOBIN A1c (test code = 94804) 6.5 % HEMOGLOBIN [id number] 00:00:00 Test Item Value Reference Range Interpretation Comments HEMOGLOBIN A1c (test code = 36741) 6.5 % HEMOGLOBIN [id number] 00:00:00 Test Item Value Reference Range Interpretation Comments HEMOGLOBIN A1c (test code = 56611) 6.5 % COMPREHENSIVE METABOLIC [id number] 00:00:00 Test Item Value Reference Range Interpretation Comments GLUCOSE (test code = 2217) 163 MG/DL BUN (test code = 2208) 25 MG/DL CREATININE (test code = 2214) 1.00 MG/DL eGFR AMER. (test code 73 ML/MIN/1.73 = 99320) eGFR NON- AMER. (test 63 ML/MIN/1.73 code = 68674) CALC BUN/CREAT (test code = 25 RATIO 2235) SODIUM (test code = 2231) 139 MEQ/L POTASSIUM (test code = 2228) 4.1 MEQ/L CHLORIDE (test code = 2215) 97 MEQ/L CARBON DIOXIDE (test code = 26 MEQ/L 2206) CALCIUM (test code = 2209) 10.4 MG/DL PROTEIN, TOTAL (test code = 8.0 G/DL 2228) ALBUMIN (test code = 2201) 5.1 G/DL CALC GLOBULIN (test code = 2.9 G/DL 2240) CALC A/G RATIO (test code = 1.8 RATIO 2234) BILIRUBIN, TOTAL (test code = <0.2 MG/DL 2206) ALKALINE PHOSPHATASE (test 93 U/L code = 2204) AST (test code = 2218) 20 U/L ALT (test code = 2219) 28 U/L COMPREHENSIVE METABOLIC [id number] 00:00:00 Test Item Value Reference Range Interpretation Comments GLUCOSE (test code = 2217) 163 MG/DL BUN (test code = 2208) 25 MG/DL CREATININE (test code = 2214) 1.00 MG/DL eGFR AMER. (test code 73 ML/MIN/1.73 = 70819) eGFR NON- AMER. (test 63 ML/MIN/1.73 code = 77167) CALC BUN/CREAT (test code = 25 RATIO 2235) SODIUM (test code = 2231) 139 MEQ/L POTASSIUM (test code = 2228) 4.1 MEQ/L CHLORIDE (test code = 2215) 97 MEQ/L CARBON DIOXIDE (test code = 26 MEQ/L 2206) CALCIUM (test code = 2209) 10.4 MG/DL PROTEIN, TOTAL (test code = 8.0 G/DL 2229) ALBUMIN (test code = 2201) 5.1 G/DL CALC GLOBULIN (test code = 2.9 G/DL 2240) CALC A/G RATIO (test code = 1.8 RATIO 2234) BILIRUBIN, TOTAL (test code = <0.2 MG/DL 2207) ALKALINE PHOSPHATASE (test 93 U/L code = 2204) AST (test code = 2218) 20 U/L ALT (test code = 2219) 28 U/L CBC W/AUTO [id number] 00:00:00 Test Item Value Reference Range Interpretation Comments WBC (test code = 1001) 6.5 K/UL RBC (test code = 1002) 4.01 M/UL HEMOGLOBIN (test code = 1003) 11.6 G/DL HEMATOCRIT (test code = 1004) 33.0 % MCV (test code = 1005) 82.3 fL MCH (test code = 1006) 28.9 PG MCHC (test code = 1007) 35.2 G/DL RDW (test code = 1038) 13.6 % NEUTROPHILS (test code = 1008) 65.8 % LYMPHOCYTES (test code = 1010) 23.2 % MONOCYTES (test code = 1011) 5.9 % EOSINOPHILS (test code = 1012) 4.6 % BASOPHILS (test code = 1013) 0.5 % PLATELET COUNT (test code = 1015) 294 K/UL CBC W/AUTO [id number] 00:00:00 Test Item Value Reference Range Interpretation Comments WBC (test code = 1001) 6.5 K/UL RBC (test code = 1002) 4.01 M/UL HEMOGLOBIN (test code = 1003) 11.6 G/DL HEMATOCRIT (test code = 1004) 33.0 % MCV (test code = 1005) 82.3 fL MCH (test code = 1006) 28.9 PG MCHC (test code = 1007) 35.2 G/DL RDW (test code = 1038) 13.6 % NEUTROPHILS (test code = 1008) 65.8 % LYMPHOCYTES (test code = 1010) 23.2 % MONOCYTES (test code = 1011) 5.9 % EOSINOPHILS (test code = 1012) 4.6 % BASOPHILS (test code = 1013) 0.5 % PLATELET COUNT (test code = 1015) 294 K/UL CBC W/AUTO [id number] 00:00:00 Test Item Value Reference Range Interpretation Comments WBC (test code = 1001) 6.5 K/UL RBC (test code = 1002) 4.01 M/UL HEMOGLOBIN (test code = 1003) 11.6 G/DL HEMATOCRIT (test code = 1004) 33.0 % MCV (test code = 1005) 82.3 fL MCH (test code = 1006) 28.9 PG MCHC (test code = 1007) 35.2 G/DL RDW (test code = 1038) 13.6 % NEUTROPHILS (test code = 1008) 65.8 % LYMPHOCYTES (test code = 1010) 23.2 % MONOCYTES (test code = 1011) 5.9 % EOSINOPHILS (test code = 1012) 4.6 % BASOPHILS (test code = 1013) 0.5 % PLATELET COUNT (test code = 1015) 294 K/UL HEMOGLOBIN [id number] 00:00:00 Test Item Value Reference Range Interpretation Comments HEMOGLOBIN A1c (test code = 56540) 6.5 % HEMOGLOBIN [id number] 00:00:00 Test Item Value Reference Range Interpretation Comments HEMOGLOBIN A1c (test code = 62323) 6.5 % HEMOGLOBIN [id number] 00:00:00 Test Item Value Reference Range Interpretation Comments HEMOGLOBIN A1c (test code = 34228) 6.5 % COMPREHENSIVE METABOLIC [id number] 00:00:00 Test Item Value Reference Range Interpretation Comments GLUCOSE (test code = 2217) 163 MG/DL BUN (test code = 2208) 25 MG/DL CREATININE (test code = 2214) 1.00 MG/DL eGFR AMER. (test code 73 ML/MIN/1.73 = 83226) eGFR NON- AMER. (test 63 ML/MIN/1.73 code = 54676) CALC BUN/CREAT (test code = 25 RATIO 2235) SODIUM (test code = 2231) 139 MEQ/L POTASSIUM (test code = 2228) 4.1 MEQ/L CHLORIDE (test code = 2215) 97 MEQ/L CARBON DIOXIDE (test code = 26 MEQ/L 2205) CALCIUM (test code = 2209) 10.4 MG/DL PROTEIN, TOTAL (test code = 8.0 G/DL 2228) ALBUMIN (test code = 2201) 5.1 G/DL CALC GLOBULIN (test code = 2.9 G/DL 2240) CALC A/G RATIO (test code = 1.8 RATIO 2234) BILIRUBIN, TOTAL (test code = <0.2 MG/DL 2206) ALKALINE PHOSPHATASE (test 93 U/L code = 2204) AST (test code = 2218) 20 U/L ALT (test code = 2219) 28 U/L COMPREHENSIVE METABOLIC [id number] 00:00:00 Test Item Value Reference Range Interpretation Comments GLUCOSE (test code = 2217) 163 MG/DL BUN (test code = 2208) 25 MG/DL CREATININE (test code = 2214) 1.00 MG/DL eGFR AMER. (test code 73 ML/MIN/1.73 = 88883) eGFR NON- AMER. (test 63 ML/MIN/1.73 code = 43929) CALC BUN/CREAT (test code = 25 RATIO 2235) SODIUM (test code = 2231) 139 MEQ/L POTASSIUM (test code = 2228) 4.1 MEQ/L CHLORIDE (test code = 2215) 97 MEQ/L CARBON DIOXIDE (test code = 26 MEQ/L 2205) CALCIUM (test code = 2209) 10.4 MG/DL PROTEIN, TOTAL (test code = 8.0 G/DL 2228) ALBUMIN (test code = 2201) 5.1 G/DL CALC GLOBULIN (test code = 2.9 G/DL 2240) CALC A/G RATIO (test code = 1.8 RATIO 2234) BILIRUBIN, TOTAL (test code = <0.2 MG/DL 2206) ALKALINE PHOSPHATASE (test 93 U/L code = 2204) AST (test code = 2218) 20 U/L ALT (test code = 2219) 28 U/L CBC W/AUTO [id number] 00:00:00 Test Item Value Reference Range Interpretation Comments WBC (test code = 1001) 6.5 K/UL RBC (test code = 1002) 4.01 M/UL HEMOGLOBIN (test code = 1003) 11.6 G/DL HEMATOCRIT (test code = 1004) 33.0 % MCV (test code = 1005) 82.3 fL MCH (test code = 1006) 28.9 PG MCHC (test code = 1007) 35.2 G/DL RDW (test code = 1038) 13.6 % NEUTROPHILS (test code = 1008) 65.8 % LYMPHOCYTES (test code = 1010) 23.2 % MONOCYTES (test code = 1011) 5.9 % EOSINOPHILS (test code = 1012) 4.6 % BASOPHILS (test code = 1013) 0.5 % PLATELET COUNT (test code = 1015) 294 K/UL CBC W/AUTO [id number] 00:00:00 Test Item Value Reference Range Interpretation Comments WBC (test code = 1001) 6.5 K/UL RBC (test code = 1002) 4.01 M/UL HEMOGLOBIN (test code = 1003) 11.6 G/DL HEMATOCRIT (test code = 1004) 33.0 % MCV (test code = 1005) 82.3 fL MCH (test code = 1006) 28.9 PG MCHC (test code = 1007) 35.2 G/DL RDW (test code = 1038) 13.6 % NEUTROPHILS (test code = 1008) 65.8 % LYMPHOCYTES (test code = 1010) 23.2 % MONOCYTES (test code = 1011) 5.9 % EOSINOPHILS (test code = 1012) 4.6 % BASOPHILS (test code = 1013) 0.5 % PLATELET COUNT (test code = 1015) 294 K/UL CBC W/AUTO [id number] 00:00:00 Test Item Value Reference Range Interpretation Comments WBC (test code = 1001) 6.5 K/UL RBC (test code = 1002) 4.01 M/UL HEMOGLOBIN (test code = 1003) 11.6 G/DL HEMATOCRIT (test code = 1004) 33.0 % MCV (test code = 1005) 82.3 fL MCH (test code = 1006) 28.9 PG MCHC (test code = 1007) 35.2 G/DL RDW (test code = 1038) 13.6 % NEUTROPHILS (test code = 1008) 65.8 % LYMPHOCYTES (test code = 1010) 23.2 % MONOCYTES (test code = 1011) 5.9 % EOSINOPHILS (test code = 1012) 4.6 % BASOPHILS (test code = 1013) 0.5 % PLATELET COUNT (test code = 1015) 294 K/UL HEMOGLOBIN [id number] 00:00:00 Test Item Value Reference Range Interpretation Comments HEMOGLOBIN A1c (test code = 65188) 6.5 % HEMOGLOBIN [id number] 00:00:00 Test Item Value Reference Range Interpretation Comments HEMOGLOBIN A1c (test code = 23055) 6.5 % HEMOGLOBIN [id number] 00:00:00 Test Item Value Reference Range Interpretation Comments HEMOGLOBIN A1c (test code = 84448) 6.5 % COMPREHENSIVE METABOLIC [id number] 00:00:00 Test Item Value Reference Range Interpretation Comments GLUCOSE (test code = 2217) 163 MG/DL BUN (test code = 2208) 25 MG/DL CREATININE (test code = 2214) 1.00 MG/DL eGFR AMER. (test code 73 ML/MIN/1.73 = 95853) eGFR NON- AMER. (test 63 ML/MIN/1.73 code = 01772) CALC BUN/CREAT (test code = 25 RATIO 2235) SODIUM (test code = 2231) 139 MEQ/L POTASSIUM (test code = 2228) 4.1 MEQ/L CHLORIDE (test code = 2215) 97 MEQ/L CARBON DIOXIDE (test code = 26 MEQ/L 2205) CALCIUM (test code = 2209) 10.4 MG/DL PROTEIN, TOTAL (test code = 8.0 G/DL 2228) ALBUMIN (test code = 2201) 5.1 G/DL CALC GLOBULIN (test code = 2.9 G/DL 2240) CALC A/G RATIO (test code = 1.8 RATIO 4) BILIRUBIN, TOTAL (test code = <0.2 MG/DL 2206) ALKALINE PHOSPHATASE (test 93 U/L code = 2204) AST (test code = 2218) 20 U/L ALT (test code = 2219) 28 U/L COMPREHENSIVE METABOLIC [id number] 00:00:00 Test Item Value Reference Range Interpretation Comments GLUCOSE (test code = 2217) 163 MG/DL BUN (test code = 2208) 25 MG/DL CREATININE (test code = 2214) 1.00 MG/DL eGFR AMER. (test code 73 ML/MIN/1.73 = 84187) eGFR NON- AMER. (test 63 ML/MIN/1.73 code = 70192) CALC BUN/CREAT (test code = 25 RATIO 2235) SODIUM (test code = 2231) 139 MEQ/L POTASSIUM (test code = 2228) 4.1 MEQ/L CHLORIDE (test code = 2215) 97 MEQ/L CARBON DIOXIDE (test code = 26 MEQ/L 2205) CALCIUM (test code = 2209) 10.4 MG/DL PROTEIN, TOTAL (test code = 8.0 G/DL 2228) ALBUMIN (test code = 220) 5.1 G/DL CALC GLOBULIN (test code = 2.9 G/DL 2239) CALC A/G RATIO (test code = 1.8 RATIO 2233) BILIRUBIN, TOTAL (test code = <0.2 MG/DL 2206) ALKALINE PHOSPHATASE (test 93 U/L code = 220) AST (test code = 2218) 20 U/L ALT (test code = 2219) 28 U/L CBC W/AUTO [id number] 00:00:00 Test Item Value Reference Range Interpretation Comments WBC (test code = 1001) 6.5 K/UL RBC (test code = 1002) 4.01 M/UL HEMOGLOBIN (test code = 1003) 11.6 G/DL HEMATOCRIT (test code = 1004) 33.0 % MCV (test code = 1005) 82.3 fL MCH (test code = 1006) 28.9 PG MCHC (test code = 1007) 35.2 G/DL RDW (test code = 1038) 13.6 % NEUTROPHILS (test code = 1008) 65.8 % LYMPHOCYTES (test code = 1010) 23.2 % MONOCYTES (test code = 1011) 5.9 % EOSINOPHILS (test code = 1012) 4.6 % BASOPHILS (test code = 1013) 0.5 % PLATELET COUNT (test code = 1015) 294 K/UL CBC W/AUTO [id number] 00:00:00 Test Item Value Reference Range Interpretation Comments WBC (test code = 1001) 6.5 K/UL RBC (test code = 1002) 4.01 M/UL HEMOGLOBIN (test code = 1003) 11.6 G/DL HEMATOCRIT (test code = 1004) 33.0 % MCV (test code = 1005) 82.3 fL MCH (test code = 1006) 28.9 PG MCHC (test code = 1007) 35.2 G/DL RDW (test code = 1038) 13.6 % NEUTROPHILS (test code = 1008) 65.8 % LYMPHOCYTES (test code = 1010) 23.2 % MONOCYTES (test code = 1011) 5.9 % EOSINOPHILS (test code = 1012) 4.6 % BASOPHILS (test code = 1013) 0.5 % PLATELET COUNT (test code = 1015) 294 K/UL HEMOGLOBIN [id number] 00:00:00 Test Item Value Reference Range Interpretation Comments HEMOGLOBIN A1c (test code = 48299) 6.5 % HEMOGLOBIN [id number] 00:00:00 Test Item Value Reference Range Interpretation Comments HEMOGLOBIN A1c (test code = 87619) 6.5 % COMPREHENSIVE METABOLIC [id number] 00:00:00 Test Item Value Reference Range Interpretation Comments GLUCOSE (test code = 2217) 163 MG/DL BUN (test code = 2208) 25 MG/DL CREATININE (test code = 2214) 1.00 MG/DL eGFR AMER. (test code 73 ML/MIN/1.73 = 43557) eGFR NON- AMER. (test 63 ML/MIN/1.73 code = 82089) CALC BUN/CREAT (test code = 25 RATIO 2235) SODIUM (test code = 2231) 139 MEQ/L POTASSIUM (test code = 2228) 4.1 MEQ/L CHLORIDE (test code = 2215) 97 MEQ/L CARBON DIOXIDE (test code = 26 MEQ/L 2206) CALCIUM (test code = 2209) 10.4 MG/DL PROTEIN, TOTAL (test code = 8.0 G/DL 2228) ALBUMIN (test code = 2201) 5.1 G/DL CALC GLOBULIN (test code = 2.9 G/DL 2240) CALC A/G RATIO (test code = 1.8 RATIO 2234) BILIRUBIN, TOTAL (test code = <0.2 MG/DL 2206) ALKALINE PHOSPHATASE (test 93 U/L code = 2204) AST (test code = 2218) 20 U/L ALT (test code = 2219) 28 U/L CBC W/AUTO [id number] 00:00:00 Test Item Value Reference Range Interpretation Comments WBC (test code = 1001) 6.5 K/UL RBC (test code = 1002) 4.01 M/UL HEMOGLOBIN (test code = 1003) 11.6 G/DL HEMATOCRIT (test code = 1004) 33.0 % MCV (test code = 1005) 82.3 fL MCH (test code = 1006) 28.9 PG MCHC (test code = 1007) 35.2 G/DL RDW (test code = 1038) 13.6 % NEUTROPHILS (test code = 1008) 65.8 % LYMPHOCYTES (test code = 1010) 23.2 % MONOCYTES (test code = 1011) 5.9 % EOSINOPHILS (test code = 1012) 4.6 % BASOPHILS (test code = 1013) 0.5 % PLATELET COUNT (test code = 1015) 294 K/UL CBC W/AUTO [id number] 00:00:00 Test Item Value Reference Range Interpretation Comments WBC (test code = 1001) 6.5 K/UL RBC (test code = 1002) 4.01 M/UL HEMOGLOBIN (test code = 1003) 11.6 G/DL HEMATOCRIT (test code = 1004) 33.0 % MCV (test code = 1005) 82.3 fL MCH (test code = 1006) 28.9 PG MCHC (test code = 1007) 35.2 G/DL RDW (test code = 1038) 13.6 % NEUTROPHILS (test code = 1008) 65.8 % LYMPHOCYTES (test code = 1010) 23.2 % MONOCYTES (test code = 1011) 5.9 % EOSINOPHILS (test code = 1012) 4.6 % BASOPHILS (test code = 1013) 0.5 % PLATELET COUNT (test code = 1015) 294 K/UL CBC W/AUTO [id number] 00:00:00 Test Item Value Reference Range Interpretation Comments WBC (test code = 1001) 6.5 K/UL RBC (test code = 1002) 4.01 M/UL HEMOGLOBIN (test code = 1003) 11.6 G/DL HEMATOCRIT (test code = 1004) 33.0 % MCV (test code = 1005) 82.3 fL MCH (test code = 1006) 28.9 PG MCHC (test code = 1007) 35.2 G/DL RDW (test code = 1038) 13.6 % NEUTROPHILS (test code = 1008) 65.8 % LYMPHOCYTES (test code = 1010) 23.2 % MONOCYTES (test code = 1011) 5.9 % EOSINOPHILS (test code = 1012) 4.6 % BASOPHILS (test code = 1013) 0.5 % PLATELET COUNT (test code = 1015) 294 K/UL COMPREHENSIVE METABOLIC [id number] 00:00:00 Test Item Value Reference Range Interpretation Comments GLUCOSE (test code = 2217) 213 MG/DL BUN (test code = 2208) 37 MG/DL CREATININE (test code = 2214) 1.30 MG/DL eGFR AMER. (test code 53 ML/MIN/1.73 = 19062) eGFR NON- AMER. (test 46 ML/MIN/1.73 code = 88277) CALC BUN/CREAT (test code = 28 RATIO 2235) SODIUM (test code = 2231) 140 MEQ/L POTASSIUM (test code = 2228) 3.6 MEQ/L CHLORIDE (test code = 2215) 99 MEQ/L CARBON DIOXIDE (test code = 24 MEQ/L 2205) CALCIUM (test code = 2209) 10.2 MG/DL PROTEIN, TOTAL (test code = 7.7 G/DL 2228) ALBUMIN (test code = 2201) 4.9 G/DL CALC GLOBULIN (test code = 2.8 G/DL 2239) CALC A/G RATIO (test code = 1.8 RATIO 4) BILIRUBIN, TOTAL (test code = 0.2 MG/DL 2206) ALKALINE PHOSPHATASE (test 94 U/L code = 2204) AST (test code = 2218) 45 U/L ALT (test code = 2219) 48 U/L LIPID [id number] 00:00:00 Test Item Value Reference Range Interpretation Comments CHOLESTEROL (test code = 2210) 263 MG/DL TRIGLYCERIDES (test code = 2232) 824 MG/DL HDL CHOLESTEROL (test code = 36 MG/DL 0) CALC LDL CHOL (test code = 2237) NOTE MG/DL RISK RATIO LDL/HDL (test code = (NOTE) RATIO 2238) LIPID [id number] 00:00:00 Test Item Value Reference Range Interpretation Comments CHOLESTEROL (test code = 2210) 263 MG/DL TRIGLYCERIDES (test code = 2232) 824 MG/DL HDL CHOLESTEROL (test code = 36 MG/DL 0) CALC LDL CHOL (test code = 2237) NOTE MG/DL RISK RATIO LDL/HDL (test code = (NOTE) RATIO 2238) COMPREHENSIVE METABOLIC [id number] 00:00:00 Test Item Value Reference Range Interpretation Comments GLUCOSE (test code = 2217) 213 MG/DL BUN (test code = 2208) 37 MG/DL CREATININE (test code = 2214) 1.30 MG/DL eGFR AMER. (test code 53 ML/MIN/1.73 = 19627) eGFR NON- AMER. (test 46 ML/MIN/1.73 code = 27689) CALC BUN/CREAT (test code = 28 RATIO 2235) SODIUM (test code = 2231) 140 MEQ/L POTASSIUM (test code = 2228) 3.6 MEQ/L CHLORIDE (test code = 2215) 99 MEQ/L CARBON DIOXIDE (test code = 24 MEQ/L 2205) CALCIUM (test code = 2209) 10.2 MG/DL PROTEIN, TOTAL (test code = 7.7 G/DL 2228) ALBUMIN (test code = 2201) 4.9 G/DL CALC GLOBULIN (test code = 2.8 G/DL 2239) CALC A/G RATIO (test code = 1.8 RATIO 2234) BILIRUBIN, TOTAL (test code = 0.2 MG/DL 2206) ALKALINE PHOSPHATASE (test 94 U/L code = 2204) AST (test code = 2218) 45 U/L ALT (test code = 2219) 48 U/L COMPREHENSIVE METABOLIC [id number] 00:00:00 Test Item Value Reference Range Interpretation Comments GLUCOSE (test code = 2217) 213 MG/DL BUN (test code = 2208) 37 MG/DL CREATININE (test code = 2214) 1.30 MG/DL eGFR AMER. (test code 53 ML/MIN/1.73 = 19502) eGFR NON- AMER. (test 46 ML/MIN/1.73 code = 78291) CALC BUN/CREAT (test code = 28 RATIO 2235) SODIUM (test code = 2231) 140 MEQ/L POTASSIUM (test code = 2228) 3.6 MEQ/L CHLORIDE (test code = 2215) 99 MEQ/L CARBON DIOXIDE (test code = 24 MEQ/L 220) CALCIUM (test code = 2209) 10.2 MG/DL PROTEIN, TOTAL (test code = 7.7 G/DL 2228) ALBUMIN (test code = 2201) 4.9 G/DL CALC GLOBULIN (test code = 2.8 G/DL 2240) CALC A/G RATIO (test code = 1.8 RATIO 2234) BILIRUBIN, TOTAL (test code = 0.2 MG/DL 2206) ALKALINE PHOSPHATASE (test 94 U/L code = 2204) AST (test code = 2218) 45 U/L ALT (test code = 2219) 48 U/L LIPID [id number] 00:00:00 Test Item Value Reference Range Interpretation Comments CHOLESTEROL (test code = 2210) 263 MG/DL TRIGLYCERIDES (test code = 2232) 824 MG/DL HDL CHOLESTEROL (test code = 36 MG/DL 2220) CALC LDL CHOL (test code = 2237) NOTE MG/DL RISK RATIO LDL/HDL (test code = (NOTE) RATIO 2238) LIPID [id number] 00:00:00 Test Item Value Reference Range Interpretation Comments CHOLESTEROL (test code = 2210) 263 MG/DL TRIGLYCERIDES (test code = 2232) 824 MG/DL HDL CHOLESTEROL (test code = 36 MG/DL 2220) CALC LDL CHOL (test code = 2237) NOTE MG/DL RISK RATIO LDL/HDL (test code = (NOTE) RATIO 2238) COMPREHENSIVE METABOLIC [id number] 00:00:00 Test Item Value Reference Range Interpretation Comments GLUCOSE (test code = 2217) 213 MG/DL BUN (test code = 2208) 37 MG/DL CREATININE (test code = 2214) 1.30 MG/DL eGFR AMER. (test code 53 ML/MIN/1.73 = 64985) eGFR NON- AMER. (test 46 ML/MIN/1.73 code = 69181) CALC BUN/CREAT (test code = 28 RATIO 2235) SODIUM (test code = 2231) 140 MEQ/L POTASSIUM (test code = 2228) 3.6 MEQ/L CHLORIDE (test code = 2215) 99 MEQ/L CARBON DIOXIDE (test code = 24 MEQ/L 2206) CALCIUM (test code = 2209) 10.2 MG/DL PROTEIN, TOTAL (test code = 7.7 G/DL 2228) ALBUMIN (test code = 2201) 4.9 G/DL CALC GLOBULIN (test code = 2.8 G/DL 2240) CALC A/G RATIO (test code = 1.8 RATIO 2234) BILIRUBIN, TOTAL (test code = 0.2 MG/DL 220) ALKALINE PHOSPHATASE (test 94 U/L code = 2204) AST (test code = 2218) 45 U/L ALT (test code = 2219) 48 U/L COMPREHENSIVE METABOLIC [id number] 00:00:00 Test Item Value Reference Range Interpretation Comments GLUCOSE (test code = 2217) 213 MG/DL BUN (test code = 2208) 37 MG/DL CREATININE (test code = 2214) 1.30 MG/DL eGFR AMER. (test code 53 ML/MIN/1.73 = 73024) eGFR NON- AMER. (test 46 ML/MIN/1.73 code = 97926) CALC BUN/CREAT (test code = 28 RATIO 2235) SODIUM (test code = 2231) 140 MEQ/L POTASSIUM (test code = 2228) 3.6 MEQ/L CHLORIDE (test code = 2215) 99 MEQ/L CARBON DIOXIDE (test code = 24 MEQ/L 2206) CALCIUM (test code = 2209) 10.2 MG/DL PROTEIN, TOTAL (test code = 7.7 G/DL 222) ALBUMIN (test code = 2201) 4.9 G/DL CALC GLOBULIN (test code = 2.8 G/DL 2240) CALC A/G RATIO (test code = 1.8 RATIO 2234) BILIRUBIN, TOTAL (test code = 0.2 MG/DL 2207) ALKALINE PHOSPHATASE (test 94 U/L code = 2204) AST (test code = 2218) 45 U/L ALT (test code = 2219) 48 U/L LIPID [id number] 00:00:00 Test Item Value Reference Range Interpretation Comments CHOLESTEROL (test code = 2210) 263 MG/DL TRIGLYCERIDES (test code = 2232) 824 MG/DL HDL CHOLESTEROL (test code = 36 MG/DL 2220) CALC LDL CHOL (test code = 2237) NOTE MG/DL RISK RATIO LDL/HDL (test code = (NOTE) RATIO 2238) COMPREHENSIVE METABOLIC [id number] 00:00:00 Test Item Value Reference Range Interpretation Comments GLUCOSE (test code = 2217) 213 MG/DL BUN (test code = 2208) 37 MG/DL CREATININE (test code = 2214) 1.30 MG/DL eGFR AMER. (test code 53 ML/MIN/1.73 = 69766) eGFR NON- AMER. (test 46 ML/MIN/1.73 code = 53015) CALC BUN/CREAT (test code = 28 RATIO 2235) SODIUM (test code = 2231) 140 MEQ/L POTASSIUM (test code = 2228) 3.6 MEQ/L CHLORIDE (test code = 2215) 99 MEQ/L CARBON DIOXIDE (test code = 24 MEQ/L 2205) CALCIUM (test code = 2209) 10.2 MG/DL PROTEIN, TOTAL (test code = 7.7 G/DL 2228) ALBUMIN (test code = 2201) 4.9 G/DL CALC GLOBULIN (test code = 2.8 G/DL 2239) CALC A/G RATIO (test code = 1.8 RATIO 2234) BILIRUBIN, TOTAL (test code = 0.2 MG/DL 2206) ALKALINE PHOSPHATASE (test 94 U/L code = 2204) AST (test code = 2218) 45 U/L ALT (test code = 2219) 48 U/L LIPID [id number] 00:00:00 Test Item Value Reference Range Interpretation Comments CHOLESTEROL (test code = 2210) 263 MG/DL TRIGLYCERIDES (test code = 2232) 824 MG/DL HDL CHOLESTEROL (test code = 36 MG/DL 2220) CALC LDL CHOL (test code = 2237) NOTE MG/DL RISK RATIO LDL/HDL (test code = (NOTE) RATIO 2238) LIPID [id number] 00:00:00 Test Item Value Reference Range Interpretation Comments CHOLESTEROL (test code = 2210) 263 MG/DL TRIGLYCERIDES (test code = 2232) 824 MG/DL HDL CHOLESTEROL (test code = 36 MG/DL 2220) CALC LDL CHOL (test code = 2237) NOTE MG/DL RISK RATIO LDL/HDL (test code = (NOTE) RATIO 2238) COMPREHENSIVE METABOLIC [id number] 00:00:00 Test Item Value Reference Range Interpretation Comments GLUCOSE (test code = 2217) 213 MG/DL BUN (test code = 2208) 37 MG/DL CREATININE (test code = 2214) 1.30 MG/DL eGFR AMER. (test code 53 ML/MIN/1.73 = 26881) eGFR NON- AMER. (test 46 ML/MIN/1.73 code = 98311) CALC BUN/CREAT (test code = 28 RATIO 2235) SODIUM (test code = 2231) 140 MEQ/L POTASSIUM (test code = 2228) 3.6 MEQ/L CHLORIDE (test code = 2215) 99 MEQ/L CARBON DIOXIDE (test code = 24 MEQ/L 2205) CALCIUM (test code = 2209) 10.2 MG/DL PROTEIN, TOTAL (test code = 7.7 G/DL 2228) ALBUMIN (test code = 2201) 4.9 G/DL CALC GLOBULIN (test code = 2.8 G/DL 2239) CALC A/G RATIO (test code = 1.8 RATIO 2233) BILIRUBIN, TOTAL (test code = 0.2 MG/DL 2206) ALKALINE PHOSPHATASE (test 94 U/L code = 2204) AST (test code = 2218) 45 U/L ALT (test code = 2219) 48 U/L LIPID [id number] 00:00:00 Test Item Value Reference Range Interpretation Comments CHOLESTEROL (test code = 2210) 187 MG/DL TRIGLYCERIDES (test code = 2232) 753 MG/DL HDL CHOLESTEROL (test code = 38 MG/DL 0) CALC LDL CHOL (test code = 2237) NOTE MG/DL RISK RATIO LDL/HDL (test code = (NOTE) RATIO 2238) LIPID [id number] 00:00:00 Test Item Value Reference Range Interpretation Comments CHOLESTEROL (test code = 2210) 187 MG/DL TRIGLYCERIDES (test code = 2232) 753 MG/DL HDL CHOLESTEROL (test code = 38 MG/DL 2220) CALC LDL CHOL (test code = 2237) NOTE MG/DL RISK RATIO LDL/HDL (test code = (NOTE) RATIO 2238) CBC W/AUTO [id number] 00:00:00 Test Item Value Reference Range Interpretation Comments WBC (test code = 1001) 6.4 K/UL RBC (test code = 1002) 4.06 M/UL HEMOGLOBIN (test code = 1003) 11.6 G/DL HEMATOCRIT (test code = 1004) 33.4 % MCV (test code = 1005) 82.3 fL MCH (test code = 1006) 28.6 PG MCHC (test code = 1007) 34.7 G/DL RDW (test code = 1038) 13.8 % NEUTROPHILS (test code = 1008) 71.7 % LYMPHOCYTES (test code = 1010) 19.6 % MONOCYTES (test code = 1011) 5.0 % EOSINOPHILS (test code = 1012) 3.4 % BASOPHILS (test code = 1013) 0.3 % PLATELET COUNT (test code = 1015) 311 K/UL CBC W/AUTO [id number] 00:00:00 Test Item Value Reference Range Interpretation Comments WBC (test code = 1001) 6.4 K/UL RBC (test code = 1002) 4.06 M/UL HEMOGLOBIN (test code = 1003) 11.6 G/DL HEMATOCRIT (test code = 1004) 33.4 % MCV (test code = 1005) 82.3 fL MCH (test code = 1006) 28.6 PG MCHC (test code = 1007) 34.7 G/DL RDW (test code = 1038) 13.8 % NEUTROPHILS (test code = 1008) 71.7 % LYMPHOCYTES (test code = 1010) 19.6 % MONOCYTES (test code = 1011) 5.0 % EOSINOPHILS (test code = 1012) 3.4 % BASOPHILS (test code = 1013) 0.3 % PLATELET COUNT (test code = 1015) 311 K/UL CBC W/AUTO [id number] 00:00:00 Test Item Value Reference Range Interpretation Comments WBC (test code = 1001) 6.4 K/UL RBC (test code = 1002) 4.06 M/UL HEMOGLOBIN (test code = 1003) 11.6 G/DL HEMATOCRIT (test code = 1004) 33.4 % MCV (test code = 1005) 82.3 fL MCH (test code = 1006) 28.6 PG MCHC (test code = 1007) 34.7 G/DL RDW (test code = 1038) 13.8 % NEUTROPHILS (test code = 1008) 71.7 % LYMPHOCYTES (test code = 1010) 19.6 % MONOCYTES (test code = 1011) 5.0 % EOSINOPHILS (test code = 1012) 3.4 % BASOPHILS (test code = 1013) 0.3 % PLATELET COUNT (test code = 1015) 311 K/UL HEMOGLOBIN [id number] 00:00:00 Test Item Value Reference Range Interpretation Comments HEMOGLOBIN A1c (test code = 96165) 6.3 % HEMOGLOBIN [id number] 00:00:00 Test Item Value Reference Range Interpretation Comments HEMOGLOBIN A1c (test code = 00054) 6.3 % HEMOGLOBIN [id number] 00:00:00 Test Item Value Reference Range Interpretation Comments HEMOGLOBIN A1c (test code = 17622) 6.3 % COMPREHENSIVE METABOLIC [id number] 00:00:00 Test Item Value Reference Range Interpretation Comments GLUCOSE (test code = 2217) 161 MG/DL BUN (test code = 2208) 20 MG/DL CREATININE (test code = 2214) 1.05 MG/DL eGFR AMER. (test code 69 ML/MIN/1.73 = 93211) eGFR NON- AMER. (test 60 ML/MIN/1.73 code = 46974) CALC BUN/CREAT (test code = 19 RATIO 2235) SODIUM (test code = 2231) 140 MEQ/L POTASSIUM (test code = 2228) 4.2 MEQ/L CHLORIDE (test code = 2215) 98 MEQ/L CARBON DIOXIDE (test code = 26 MEQ/L 2205) CALCIUM (test code = 2209) 10.0 MG/DL PROTEIN, TOTAL (test code = 7.6 G/DL 2228) ALBUMIN (test code = 2201) 4.9 G/DL CALC GLOBULIN (test code = 2.7 G/DL 0) CALC A/G RATIO (test code = 1.8 RATIO 4) BILIRUBIN, TOTAL (test code = <0.2 MG/DL 2206) ALKALINE PHOSPHATASE (test 115 U/L code = 2204) AST (test code = 2218) 37 U/L ALT (test code = 2219) 35 U/L COMPREHENSIVE METABOLIC [id number] 00:00:00 Test Item Value Reference Range Interpretation Comments GLUCOSE (test code = 2217) 161 MG/DL BUN (test code = 2208) 20 MG/DL CREATININE (test code = 2214) 1.05 MG/DL eGFR AMER. (test code 69 ML/MIN/1.73 = 91605) eGFR NON- AMER. (test 60 ML/MIN/1.73 code = 78181) CALC BUN/CREAT (test code = 19 RATIO 2235) SODIUM (test code = 2231) 140 MEQ/L POTASSIUM (test code = 2228) 4.2 MEQ/L CHLORIDE (test code = 2215) 98 MEQ/L CARBON DIOXIDE (test code = 26 MEQ/L 2205) CALCIUM (test code = 2209) 10.0 MG/DL PROTEIN, TOTAL (test code = 7.6 G/DL 2228) ALBUMIN (test code = 2201) 4.9 G/DL CALC GLOBULIN (test code = 2.7 G/DL 224) CALC A/G RATIO (test code = 1.8 RATIO 2234) BILIRUBIN, TOTAL (test code = <0.2 MG/DL 2206) ALKALINE PHOSPHATASE (test 115 U/L code = 220) AST (test code = 2218) 37 U/L ALT (test code = 2219) 35 U/L LIPID [id number] 00:00:00 Test Item Value Reference Range Interpretation Comments CHOLESTEROL (test code = 2210) 187 MG/DL TRIGLYCERIDES (test code = 2232) 753 MG/DL HDL CHOLESTEROL (test code = 38 MG/DL 2220) CALC LDL CHOL (test code = 2237) NOTE MG/DL RISK RATIO LDL/HDL (test code = (NOTE) RATIO 2238) LIPID [id number] 00:00:00 Test Item Value Reference Range Interpretation Comments CHOLESTEROL (test code = 2210) 187 MG/DL TRIGLYCERIDES (test code = 2232) 753 MG/DL HDL CHOLESTEROL (test code = 38 MG/DL 2220) CALC LDL CHOL (test code = 2237) NOTE MG/DL RISK RATIO LDL/HDL (test code = (NOTE) RATIO 2238) CBC W/AUTO [id number] 00:00:00 Test Item Value Reference Range Interpretation Comments WBC (test code = 1001) 6.4 K/UL RBC (test code = 1002) 4.06 M/UL HEMOGLOBIN (test code = 1003) 11.6 G/DL HEMATOCRIT (test code = 1004) 33.4 % MCV (test code = 1005) 82.3 fL MCH (test code = 1006) 28.6 PG MCHC (test code = 1007) 34.7 G/DL RDW (test code = 1038) 13.8 % NEUTROPHILS (test code = 1008) 71.7 % LYMPHOCYTES (test code = 1010) 19.6 % MONOCYTES (test code = 1011) 5.0 % EOSINOPHILS (test code = 1012) 3.4 % BASOPHILS (test code = 1013) 0.3 % PLATELET COUNT (test code = 1015) 311 K/UL CBC W/AUTO [id number] 00:00:00 Test Item Value Reference Range Interpretation Comments WBC (test code = 1001) 6.4 K/UL RBC (test code = 1002) 4.06 M/UL HEMOGLOBIN (test code = 1003) 11.6 G/DL HEMATOCRIT (test code = 1004) 33.4 % MCV (test code = 1005) 82.3 fL MCH (test code = 1006) 28.6 PG MCHC (test code = 1007) 34.7 G/DL RDW (test code = 1038) 13.8 % NEUTROPHILS (test code = 1008) 71.7 % LYMPHOCYTES (test code = 1010) 19.6 % MONOCYTES (test code = 1011) 5.0 % EOSINOPHILS (test code = 1012) 3.4 % BASOPHILS (test code = 1013) 0.3 % PLATELET COUNT (test code = 1015) 311 K/UL CBC W/AUTO [id number] 00:00:00 Test Item Value Reference Range Interpretation Comments WBC (test code = 1001) 6.4 K/UL RBC (test code = 1002) 4.06 M/UL HEMOGLOBIN (test code = 1003) 11.6 G/DL HEMATOCRIT (test code = 1004) 33.4 % MCV (test code = 1005) 82.3 fL MCH (test code = 1006) 28.6 PG MCHC (test code = 1007) 34.7 G/DL RDW (test code = 1038) 13.8 % NEUTROPHILS (test code = 1008) 71.7 % LYMPHOCYTES (test code = 1010) 19.6 % MONOCYTES (test code = 1011) 5.0 % EOSINOPHILS (test code = 1012) 3.4 % BASOPHILS (test code = 1013) 0.3 % PLATELET COUNT (test code = 1015) 311 K/UL HEMOGLOBIN [id number] 00:00:00 Test Item Value Reference Range Interpretation Comments HEMOGLOBIN A1c (test code = 70667) 6.3 % HEMOGLOBIN [id number] 00:00:00 Test Item Value Reference Range Interpretation Comments HEMOGLOBIN A1c (test code = 32810) 6.3 % HEMOGLOBIN [id number] 00:00:00 Test Item Value Reference Range Interpretation Comments HEMOGLOBIN A1c (test code = 97763) 6.3 % COMPREHENSIVE METABOLIC [id number] 00:00:00 Test Item Value Reference Range Interpretation Comments GLUCOSE (test code = 2217) 161 MG/DL BUN (test code = 2208) 20 MG/DL CREATININE (test code = 2214) 1.05 MG/DL eGFR AMER. (test code 69 ML/MIN/1.73 = 43716) eGFR NON- AMER. (test 60 ML/MIN/1.73 code = 28651) CALC BUN/CREAT (test code = 19 RATIO 2235) SODIUM (test code = 2231) 140 MEQ/L POTASSIUM (test code = 2228) 4.2 MEQ/L CHLORIDE (test code = 2215) 98 MEQ/L CARBON DIOXIDE (test code = 26 MEQ/L 2205) CALCIUM (test code = 2209) 10.0 MG/DL PROTEIN, TOTAL (test code = 7.6 G/DL 2228) ALBUMIN (test code = 2201) 4.9 G/DL CALC GLOBULIN (test code = 2.7 G/DL 2240) CALC A/G RATIO (test code = 1.8 RATIO 2234) BILIRUBIN, TOTAL (test code = <0.2 MG/DL 2206) ALKALINE PHOSPHATASE (test 115 U/L code = 2204) AST (test code = 2218) 37 U/L ALT (test code = 2219) 35 U/L COMPREHENSIVE METABOLIC [id number] 00:00:00 Test Item Value Reference Range Interpretation Comments GLUCOSE (test code = 2217) 161 MG/DL BUN (test code = 2208) 20 MG/DL CREATININE (test code = 2214) 1.05 MG/DL eGFR AMER. (test code 69 ML/MIN/1.73 = 27350) eGFR NON- AMER. (test 60 ML/MIN/1.73 code = 82650) CALC BUN/CREAT (test code = 19 RATIO 2235) SODIUM (test code = 2231) 140 MEQ/L POTASSIUM (test code = 2228) 4.2 MEQ/L CHLORIDE (test code = 2215) 98 MEQ/L CARBON DIOXIDE (test code = 26 MEQ/L 2205) CALCIUM (test code = 2209) 10.0 MG/DL PROTEIN, TOTAL (test code = 7.6 G/DL 2228) ALBUMIN (test code = 2201) 4.9 G/DL CALC GLOBULIN (test code = 2.7 G/DL 2240) CALC A/G RATIO (test code = 1.8 RATIO 2234) BILIRUBIN, TOTAL (test code = <0.2 MG/DL 2206) ALKALINE PHOSPHATASE (test 115 U/L code = 2204) AST (test code = 2218) 37 U/L ALT (test code = 2219) 35 U/L LIPID [id number] 00:00:00 Test Item Value Reference Range Interpretation Comments CHOLESTEROL (test code = 2210) 187 MG/DL TRIGLYCERIDES (test code = 2232) 753 MG/DL HDL CHOLESTEROL (test code = 38 MG/DL 2220) CALC LDL CHOL (test code = 2237) NOTE MG/DL RISK RATIO LDL/HDL (test code = (NOTE) RATIO 2238) LIPID [id number] 00:00:00 Test Item Value Reference Range Interpretation Comments CHOLESTEROL (test code = 2210) 187 MG/DL TRIGLYCERIDES (test code = 2232) 753 MG/DL HDL CHOLESTEROL (test code = 38 MG/DL 2220) CALC LDL CHOL (test code = 2237) NOTE MG/DL RISK RATIO LDL/HDL (test code = (NOTE) RATIO 2238) CBC W/AUTO [id number] 00:00:00 Test Item Value Reference Range Interpretation Comments WBC (test code = 1001) 6.4 K/UL RBC (test code = 1002) 4.06 M/UL HEMOGLOBIN (test code = 1003) 11.6 G/DL HEMATOCRIT (test code = 1004) 33.4 % MCV (test code = 1005) 82.3 fL MCH (test code = 1006) 28.6 PG MCHC (test code = 1007) 34.7 G/DL RDW (test code = 1038) 13.8 % NEUTROPHILS (test code = 1008) 71.7 % LYMPHOCYTES (test code = 1010) 19.6 % MONOCYTES (test code = 1011) 5.0 % EOSINOPHILS (test code = 1012) 3.4 % BASOPHILS (test code = 1013) 0.3 % PLATELET COUNT (test code = 1015) 311 K/UL CBC W/AUTO [id number] 00:00:00 Test Item Value Reference Range Interpretation Comments WBC (test code = 1001) 6.4 K/UL RBC (test code = 1002) 4.06 M/UL HEMOGLOBIN (test code = 1003) 11.6 G/DL HEMATOCRIT (test code = 1004) 33.4 % MCV (test code = 1005) 82.3 fL MCH (test code = 1006) 28.6 PG MCHC (test code = 1007) 34.7 G/DL RDW (test code = 1038) 13.8 % NEUTROPHILS (test code = 1008) 71.7 % LYMPHOCYTES (test code = 1010) 19.6 % MONOCYTES (test code = 1011) 5.0 % EOSINOPHILS (test code = 1012) 3.4 % BASOPHILS (test code = 1013) 0.3 % PLATELET COUNT (test code = 1015) 311 K/UL CBC W/AUTO [id number] 00:00:00 Test Item Value Reference Range Interpretation Comments WBC (test code = 1001) 6.4 K/UL RBC (test code = 1002) 4.06 M/UL HEMOGLOBIN (test code = 1003) 11.6 G/DL HEMATOCRIT (test code = 1004) 33.4 % MCV (test code = 1005) 82.3 fL MCH (test code = 1006) 28.6 PG MCHC (test code = 1007) 34.7 G/DL RDW (test code = 1038) 13.8 % NEUTROPHILS (test code = 1008) 71.7 % LYMPHOCYTES (test code = 1010) 19.6 % MONOCYTES (test code = 1011) 5.0 % EOSINOPHILS (test code = 1012) 3.4 % BASOPHILS (test code = 1013) 0.3 % PLATELET COUNT (test code = 1015) 311 K/UL HEMOGLOBIN [id number] 00:00:00 Test Item Value Reference Range Interpretation Comments HEMOGLOBIN A1c (test code = 81012) 6.3 % HEMOGLOBIN [id number] 00:00:00 Test Item Value Reference Range Interpretation Comments HEMOGLOBIN A1c (test code = 84652) 6.3 % HEMOGLOBIN [id number] 00:00:00 Test Item Value Reference Range Interpretation Comments HEMOGLOBIN A1c (test code = 84051) 6.3 % COMPREHENSIVE METABOLIC [id number] 00:00:00 Test Item Value Reference Range Interpretation Comments GLUCOSE (test code = 2217) 161 MG/DL BUN (test code = 2208) 20 MG/DL CREATININE (test code = 2214) 1.05 MG/DL eGFR AMER. (test code 69 ML/MIN/1.73 = 43313) eGFR NON- AMER. (test 60 ML/MIN/1.73 code = 17952) CALC BUN/CREAT (test code = 19 RATIO 2235) SODIUM (test code = 2231) 140 MEQ/L POTASSIUM (test code = 2228) 4.2 MEQ/L CHLORIDE (test code = 2215) 98 MEQ/L CARBON DIOXIDE (test code = 26 MEQ/L 2205) CALCIUM (test code = 2209) 10.0 MG/DL PROTEIN, TOTAL (test code = 7.6 G/DL 2228) ALBUMIN (test code = 2201) 4.9 G/DL CALC GLOBULIN (test code = 2.7 G/DL 2239) CALC A/G RATIO (test code = 1.8 RATIO 2234) BILIRUBIN, TOTAL (test code = <0.2 MG/DL 2206) ALKALINE PHOSPHATASE (test 115 U/L code = 2204) AST (test code = 2218) 37 U/L ALT (test code = 2219) 35 U/L LIPID [id number] 00:00:00 Test Item Value Reference Range Interpretation Comments CHOLESTEROL (test code = 2210) 187 MG/DL TRIGLYCERIDES (test code = 2232) 753 MG/DL HDL CHOLESTEROL (test code = 38 MG/DL 2219) CALC LDL CHOL (test code = 2237) NOTE MG/DL RISK RATIO LDL/HDL (test code = (NOTE) RATIO 2238) CBC W/AUTO [id number] 00:00:00 Test Item Value Reference Range Interpretation Comments WBC (test code = 1001) 6.4 K/UL RBC (test code = 1002) 4.06 M/UL HEMOGLOBIN (test code = 1003) 11.6 G/DL HEMATOCRIT (test code = 1004) 33.4 % MCV (test code = 1005) 82.3 fL MCH (test code = 1006) 28.6 PG MCHC (test code = 1007) 34.7 G/DL RDW (test code = 1038) 13.8 % NEUTROPHILS (test code = 1008) 71.7 % LYMPHOCYTES (test code = 1010) 19.6 % MONOCYTES (test code = 1011) 5.0 % EOSINOPHILS (test code = 1012) 3.4 % BASOPHILS (test code = 1013) 0.3 % PLATELET COUNT (test code = 1015) 311 K/UL CBC W/AUTO [id number] 00:00:00 Test Item Value Reference Range Interpretation Comments WBC (test code = 1001) 6.4 K/UL RBC (test code = 1002) 4.06 M/UL HEMOGLOBIN (test code = 1003) 11.6 G/DL HEMATOCRIT (test code = 1004) 33.4 % MCV (test code = 1005) 82.3 fL MCH (test code = 1006) 28.6 PG MCHC (test code = 1007) 34.7 G/DL RDW (test code = 1038) 13.8 % NEUTROPHILS (test code = 1008) 71.7 % LYMPHOCYTES (test code = 1010) 19.6 % MONOCYTES (test code = 1011) 5.0 % EOSINOPHILS (test code = 1012) 3.4 % BASOPHILS (test code = 1013) 0.3 % PLATELET COUNT (test code = 1015) 311 K/UL HEMOGLOBIN [id number] 00:00:00 Test Item Value Reference Range Interpretation Comments HEMOGLOBIN A1c (test code = 67853) 6.3 % HEMOGLOBIN [id number] 00:00:00 Test Item Value Reference Range Interpretation Comments HEMOGLOBIN A1c (test code = 04555) 6.3 % COMPREHENSIVE METABOLIC [id number] 00:00:00 Test Item Value Reference Range Interpretation Comments GLUCOSE (test code = 2217) 161 MG/DL BUN (test code = 2208) 20 MG/DL CREATININE (test code = 2214) 1.05 MG/DL eGFR AMER. (test code 69 ML/MIN/1.73 = 68021) eGFR NON- AMER. (test 60 ML/MIN/1.73 code = 86075) CALC BUN/CREAT (test code = 19 RATIO 2235) SODIUM (test code = 2231) 140 MEQ/L POTASSIUM (test code = 2228) 4.2 MEQ/L CHLORIDE (test code = 2215) 98 MEQ/L CARBON DIOXIDE (test code = 26 MEQ/L 220) CALCIUM (test code = 2209) 10.0 MG/DL PROTEIN, TOTAL (test code = 7.6 G/DL 2228) ALBUMIN (test code = 2201) 4.9 G/DL CALC GLOBULIN (test code = 2.7 G/DL 2240) CALC A/G RATIO (test code = 1.8 RATIO 2234) BILIRUBIN, TOTAL (test code = <0.2 MG/DL 2206) ALKALINE PHOSPHATASE (test 115 U/L code = 2204) AST (test code = 2218) 37 U/L ALT (test code = 2219) 35 U/L COMPREHENSIVE METABOLIC [id number] 00:00:00 Test Item Value Reference Range Interpretation Comments GLUCOSE (test code = 2217) 161 MG/DL BUN (test code = 2208) 20 MG/DL CREATININE (test code = 2214) 1.05 MG/DL eGFR AMER. (test code 69 ML/MIN/1.73 = 64101) eGFR NON- AMER. (test 60 ML/MIN/1.73 code = 50261) CALC BUN/CREAT (test code = 19 RATIO 2235) SODIUM (test code = 2231) 140 MEQ/L POTASSIUM (test code = 2228) 4.2 MEQ/L CHLORIDE (test code = 2215) 98 MEQ/L CARBON DIOXIDE (test code = 26 MEQ/L 2205) CALCIUM (test code = 2209) 10.0 MG/DL PROTEIN, TOTAL (test code = 7.6 G/DL 2228) ALBUMIN (test code = 2201) 4.9 G/DL CALC GLOBULIN (test code = 2.7 G/DL 2240) CALC A/G RATIO (test code = 1.8 RATIO 2234) BILIRUBIN, TOTAL (test code = <0.2 MG/DL 2206) ALKALINE PHOSPHATASE (test 115 U/L code = 2204) AST (test code = 2218) 37 U/L ALT (test code = 2219) 35 U/L VITAMIN [id number] 00:00:00 Test Item Value Reference Range Interpretation Comments VITAMIN B1 (test code = 4952) 115 nmol/L VITAMIN [id number] 00:00:00 Test Item Value Reference Range Interpretation Comments VITAMIN B1 (test code = 4952) 115 nmol/L VITAMIN [id number] 00:00:00 Test Item Value Reference Range Interpretation Comments VITAMIN B1 (test code = 4952) 115 nmol/L VITAMIN [id number] 00:00:00 Test Item Value Reference Range Interpretation Comments VITAMIN B1 (test code = 4952) 115 nmol/L VITAMIN [id number] 00:00:00 Test Item Value Reference Range Interpretation Comments VITAMIN B1 (test code = 4952) 115 nmol/L VITAMIN [id number] 00:00:00 Test Item Value Reference Range Interpretation Comments VITAMIN B1 (test code = 4952) 115 nmol/L VITAMIN [id number] 00:00:00 Test Item Value Reference Range Interpretation Comments VITAMIN B1 (test code = 4952) 115 nmol/L IRON BINDING CAPACITY AND IRON AND % [id number] 00:00:00 Test Item Value Reference Range Interpretation Comments IRON, SERUM (test code = 2222) 62 UG/DL UNSATURATED IBC (test code = 31985) 284 UG/DL CALC TOTAL IBC (test code = 2077) 346 UG/DL CALC % IRON SAT (test code = 2079) 18 % [id number] 00:00:00 Test Item Value Reference Range Interpretation Comments FERRITIN (test code = 2075) 70 NG/ML [id number] 00:00:00 Test Item Value Reference Range Interpretation Comments FERRITIN (test code = 2075) 70 NG/ML VITAMIN [id number] 00:00:00 Test Item Value Reference Range Interpretation Comments VITAMIN B-12 (test code = 2840) 457 PG/ML VITAMIN [id number] 00:00:00 Test Item Value Reference Range Interpretation Comments VITAMIN B-12 (test code = 2840) 457 PG/ML VITAMIN [id number] 00:00:00 Test Item Value Reference Range Interpretation Comments VITAMIN B-12 (test code = 2840) 457 PG/ML FOLIC [id number] 00:00:00 Test Item Value Reference Range Interpretation Comments FOLIC ACID (test code = 2695) 6.5 UG/L FOLIC [id number] 00:00:00 Test Item Value Reference Range Interpretation Comments FOLIC ACID (test code = 2695) 6.5 UG/L HEMOGLOBIN [id number] 00:00:00 Test Item Value Reference Range Interpretation Comments HEMOGLOBIN A1c (test code = 06617) 6.6 % HEMOGLOBIN [id number] 00:00:00 Test Item Value Reference Range Interpretation Comments HEMOGLOBIN A1c (test code = 30649) 6.6 % HEMOGLOBIN [id number] 00:00:00 Test Item Value Reference Range Interpretation Comments HEMOGLOBIN A1c (test code = 03349) 6.6 % IMMUNOGLOBULINS, IgA, IgG, [id number] 00:00:00 Test Item Value Reference Range Interpretation Comments IMMUNOGLOBULIN G (IgG) (test code 1060 MG/DL = 2573) IMMUNOGLOBULIN M (IgM) (test code 43 MG/DL = 2755) IMMUNOGLOBULIN A (IgA) (test code 141 MG/DL = 2753) IMMUNOGLOBULINS, IgA, IgG, [id number] 00:00:00 Test Item Value Reference Range Interpretation Comments IMMUNOGLOBULIN G (IgG) (test code 1060 MG/DL = 2573) IMMUNOGLOBULIN M (IgM) (test code 43 MG/DL = 2755) IMMUNOGLOBULIN A (IgA) (test code 141 MG/DL = 2753) COMPREHENSIVE METABOLIC [id number] 00:00:00 Test Item Value Reference Range Interpretation Comments GLUCOSE (test code = 2217) 218 MG/DL BUN (test code = 2208) 19 MG/DL CREATININE (test code = 2214) 1.01 MG/DL eGFR AMER. (test code 73 ML/MIN/1.73 = 35899) eGFR NON- AMER. (test 63 ML/MIN/1.73 code = 52729) CALC BUN/CREAT (test code = 19 RATIO 2235) SODIUM (test code = 2231) 141 MEQ/L POTASSIUM (test code = 2228) 3.8 MEQ/L CHLORIDE (test code = 2215) 101 MEQ/L CARBON DIOXIDE (test code = 24 MEQ/L 2206) CALCIUM (test code = 2209) 9.6 MG/DL PROTEIN, TOTAL (test code = 7.4 G/DL 2228) ALBUMIN (test code = 2201) 4.9 G/DL CALC GLOBULIN (test code = 2.5 G/DL 2240) CALC A/G RATIO (test code = 2.0 RATIO 2234) BILIRUBIN, TOTAL (test code = <0.2 MG/DL 2207) ALKALINE PHOSPHATASE (test 83 U/L code = 2204) AST (test code = 2218) 48 U/L ALT (test code = 2219) 66 U/L COMPREHENSIVE METABOLIC [id number] 00:00:00 Test Item Value Reference Range Interpretation Comments GLUCOSE (test code = 2217) 218 MG/DL BUN (test code = 2208) 19 MG/DL CREATININE (test code = 2214) 1.01 MG/DL eGFR AMER. (test code 73 ML/MIN/1.73 = 11169) eGFR NON- AMER. (test 63 ML/MIN/1.73 code = 11298) CALC BUN/CREAT (test code = 19 RATIO 2235) SODIUM (test code = 2231) 141 MEQ/L POTASSIUM (test code = 2228) 3.8 MEQ/L CHLORIDE (test code = 2215) 101 MEQ/L CARBON DIOXIDE (test code = 24 MEQ/L 2205) CALCIUM (test code = 2209) 9.6 MG/DL PROTEIN, TOTAL (test code = 7.4 G/DL 2228) ALBUMIN (test code = 2201) 4.9 G/DL CALC GLOBULIN (test code = 2.5 G/DL 2240) CALC A/G RATIO (test code = 2.0 RATIO 2234) BILIRUBIN, TOTAL (test code = <0.2 MG/DL 2206) ALKALINE PHOSPHATASE (test 83 U/L code = 2204) AST (test code = 2218) 48 U/L ALT (test code = 2219) 66 U/L [id number] 00:00:00 Test Item Value Reference Range Interpretation Comments MAGNESIUM (test code = 2226) 1.8 MG/DL [id number] 00:00:00 Test Item Value Reference Range Interpretation Comments MAGNESIUM (test code = 2226) 1.8 MG/DL [id number] 00:00:00 Test Item Value Reference Range Interpretation Comments MAGNESIUM (test code = 2226) 1.8 MG/DL URIC [id number] 00:00:00 Test Item Value Reference Range Interpretation Comments URIC ACID (test code = 2233) 3.4 MG/DL URIC [id number] 00:00:00 Test Item Value Reference Range Interpretation Comments URIC ACID (test code = 2233) 3.4 MG/DL CBC W/AUTO [id number] 00:00:00 Test Item Value Reference Range Interpretation Comments WBC (test code = 1001) 5.3 K/UL RBC (test code = 1002) 3.85 M/UL HEMOGLOBIN (test code = 1003) 11.0 G/DL HEMATOCRIT (test code = 1004) 31.9 % MCV (test code = 1005) 82.9 fL MCH (test code = 1006) 28.6 PG MCHC (test code = 1007) 34.5 G/DL RDW (test code = 1038) 14.2 % NEUTROPHILS (test code = 1008) 67.6 % LYMPHOCYTES (test code = 1010) 22.7 % MONOCYTES (test code = 1011) 4.9 % EOSINOPHILS (test code = 1012) 4.2 % BASOPHILS (test code = 1013) 0.6 % PLATELET COUNT (test code = 1015) 282 K/UL CBC W/AUTO [id number] 00:00:00 Test Item Value Reference Range Interpretation Comments WBC (test code = 1001) 5.3 K/UL RBC (test code = 1002) 3.85 M/UL HEMOGLOBIN (test code = 1003) 11.0 G/DL HEMATOCRIT (test code = 1004) 31.9 % MCV (test code = 1005) 82.9 fL MCH (test code = 1006) 28.6 PG MCHC (test code = 1007) 34.5 G/DL RDW (test code = 1038) 14.2 % NEUTROPHILS (test code = 1008) 67.6 % LYMPHOCYTES (test code = 1010) 22.7 % MONOCYTES (test code = 1011) 4.9 % EOSINOPHILS (test code = 1012) 4.2 % BASOPHILS (test code = 1013) 0.6 % PLATELET COUNT (test code = 1015) 282 K/UL CBC W/AUTO [id number] 00:00:00 Test Item Value Reference Range Interpretation Comments WBC (test code = 1001) 5.3 K/UL RBC (test code = 1002) 3.85 M/UL HEMOGLOBIN (test code = 1003) 11.0 G/DL HEMATOCRIT (test code = 1004) 31.9 % MCV (test code = 1005) 82.9 fL MCH (test code = 1006) 28.6 PG MCHC (test code = 1007) 34.5 G/DL RDW (test code = 1038) 14.2 % NEUTROPHILS (test code = 1008) 67.6 % LYMPHOCYTES (test code = 1010) 22.7 % MONOCYTES (test code = 1011) 4.9 % EOSINOPHILS (test code = 1012) 4.2 % BASOPHILS (test code = 1013) 0.6 % PLATELET COUNT (test code = 1015) 282 K/UL IRON BINDING CAPACITY AND IRON AND % [id number] 00:00:00 Test Item Value Reference Range Interpretation Comments IRON, SERUM (test code = 2) 62 UG/DL UNSATURATED IBC (test code = 87112) 284 UG/DL CALC TOTAL IBC (test code = 7) 346 UG/DL CALC % IRON SAT (test code = 9) 18 % IRON BINDING CAPACITY AND IRON AND % [id number] 00:00:00 Test Item Value Reference Range Interpretation Comments IRON, SERUM (test code = 2) 62 UG/DL UNSATURATED IBC (test code = 90460) 284 UG/DL CALC TOTAL IBC (test code = 7) 346 UG/DL CALC % IRON SAT (test code = 9) 18 % [id number] 00:00:00 Test Item Value Reference Range Interpretation Comments FERRITIN (test code = 5) 70 NG/ML [id number] 00:00:00 Test Item Value Reference Range Interpretation Comments FERRITIN (test code = 5) 70 NG/ML VITAMIN [id number] 00:00:00 Test Item Value Reference Range Interpretation Comments VITAMIN B-12 (test code = 2840) 457 PG/ML VITAMIN [id number] 00:00:00 Test Item Value Reference Range Interpretation Comments VITAMIN B-12 (test code = 2840) 457 PG/ML VITAMIN [id number] 00:00:00 Test Item Value Reference Range Interpretation Comments VITAMIN B-12 (test code = 2840) 457 PG/ML FOLIC [id number] 00:00:00 Test Item Value Reference Range Interpretation Comments FOLIC ACID (test code = 2695) 6.5 UG/L FOLIC [id number] 00:00:00 Test Item Value Reference Range Interpretation Comments FOLIC ACID (test code = 2695) 6.5 UG/L HEMOGLOBIN [id number] 00:00:00 Test Item Value Reference Range Interpretation Comments HEMOGLOBIN A1c (test code = 92691) 6.6 % HEMOGLOBIN [id number] 00:00:00 Test Item Value Reference Range Interpretation Comments HEMOGLOBIN A1c (test code = 65689) 6.6 % HEMOGLOBIN [id number] 00:00:00 Test Item Value Reference Range Interpretation Comments HEMOGLOBIN A1c (test code = 27428) 6.6 % IMMUNOGLOBULINS, IgA, IgG, [id number] 00:00:00 Test Item Value Reference Range Interpretation Comments IMMUNOGLOBULIN G (IgG) (test code 1060 MG/DL = 2573) IMMUNOGLOBULIN M (IgM) (test code 43 MG/DL = 2755) IMMUNOGLOBULIN A (IgA) (test code 141 MG/DL = 2753) IMMUNOGLOBULINS, IgA, IgG, [id number] 00:00:00 Test Item Value Reference Range Interpretation Comments IMMUNOGLOBULIN G (IgG) (test code 1060 MG/DL = 2573) IMMUNOGLOBULIN M (IgM) (test code 43 MG/DL = 2755) IMMUNOGLOBULIN A (IgA) (test code 141 MG/DL = 2753) COMPREHENSIVE METABOLIC [id number] 00:00:00 Test Item Value Reference Range Interpretation Comments GLUCOSE (test code = 2217) 218 MG/DL BUN (test code = 2208) 19 MG/DL CREATININE (test code = 2214) 1.01 MG/DL eGFR AMER. (test code 73 ML/MIN/1.73 = 09622) eGFR NON- AMER. (test 63 ML/MIN/1.73 code = 97262) CALC BUN/CREAT (test code = 19 RATIO 2235) SODIUM (test code = 2231) 141 MEQ/L POTASSIUM (test code = 2228) 3.8 MEQ/L CHLORIDE (test code = 2215) 101 MEQ/L CARBON DIOXIDE (test code = 24 MEQ/L 2206) CALCIUM (test code = 2209) 9.6 MG/DL PROTEIN, TOTAL (test code = 7.4 G/DL 2228) ALBUMIN (test code = 2201) 4.9 G/DL CALC GLOBULIN (test code = 2.5 G/DL 2240) CALC A/G RATIO (test code = 2.0 RATIO 2234) BILIRUBIN, TOTAL (test code = <0.2 MG/DL 220) ALKALINE PHOSPHATASE (test 83 U/L code = 2204) AST (test code = 2218) 48 U/L ALT (test code = 2219) 66 U/L COMPREHENSIVE METABOLIC [id number] 00:00:00 Test Item Value Reference Range Interpretation Comments GLUCOSE (test code = 2217) 218 MG/DL BUN (test code = 2208) 19 MG/DL CREATININE (test code = 2214) 1.01 MG/DL eGFR AMER. (test code 73 ML/MIN/1.73 = 96095) eGFR NON- AMER. (test 63 ML/MIN/1.73 code = 69923) CALC BUN/CREAT (test code = 19 RATIO 2235) SODIUM (test code = 2231) 141 MEQ/L POTASSIUM (test code = 2228) 3.8 MEQ/L CHLORIDE (test code = 2215) 101 MEQ/L CARBON DIOXIDE (test code = 24 MEQ/L 220) CALCIUM (test code = 2209) 9.6 MG/DL PROTEIN, TOTAL (test code = 7.4 G/DL 2228) ALBUMIN (test code = 2201) 4.9 G/DL CALC GLOBULIN (test code = 2.5 G/DL 2240) CALC A/G RATIO (test code = 2.0 RATIO 2234) BILIRUBIN, TOTAL (test code = <0.2 MG/DL 2206) ALKALINE PHOSPHATASE (test 83 U/L code = 2204) AST (test code = 2218) 48 U/L ALT (test code = 2219) 66 U/L [id number] 00:00:00 Test Item Value Reference Range Interpretation Comments MAGNESIUM (test code = 2226) 1.8 MG/DL [id number] 00:00:00 Test Item Value Reference Range Interpretation Comments MAGNESIUM (test code = 2226) 1.8 MG/DL [id number] 00:00:00 Test Item Value Reference Range Interpretation Comments MAGNESIUM (test code = 2226) 1.8 MG/DL URIC [id number] 00:00:00 Test Item Value Reference Range Interpretation Comments URIC ACID (test code = 2233) 3.4 MG/DL URIC [id number] 00:00:00 Test Item Value Reference Range Interpretation Comments URIC ACID (test code = 2233) 3.4 MG/DL CBC W/AUTO [id number] 00:00:00 Test Item Value Reference Range Interpretation Comments WBC (test code = 1001) 5.3 K/UL RBC (test code = 1002) 3.85 M/UL HEMOGLOBIN (test code = 1003) 11.0 G/DL HEMATOCRIT (test code = 1004) 31.9 % MCV (test code = 1005) 82.9 fL MCH (test code = 1006) 28.6 PG MCHC (test code = 1007) 34.5 G/DL RDW (test code = 1038) 14.2 % NEUTROPHILS (test code = 1008) 67.6 % LYMPHOCYTES (test code = 1010) 22.7 % MONOCYTES (test code = 1011) 4.9 % EOSINOPHILS (test code = 1012) 4.2 % BASOPHILS (test code = 1013) 0.6 % PLATELET COUNT (test code = 1015) 282 K/UL CBC W/AUTO [id number] 00:00:00 Test Item Value Reference Range Interpretation Comments WBC (test code = 1001) 5.3 K/UL RBC (test code = 1002) 3.85 M/UL HEMOGLOBIN (test code = 1003) 11.0 G/DL HEMATOCRIT (test code = 1004) 31.9 % MCV (test code = 1005) 82.9 fL MCH (test code = 1006) 28.6 PG MCHC (test code = 1007) 34.5 G/DL RDW (test code = 1038) 14.2 % NEUTROPHILS (test code = 1008) 67.6 % LYMPHOCYTES (test code = 1010) 22.7 % MONOCYTES (test code = 1011) 4.9 % EOSINOPHILS (test code = 1012) 4.2 % BASOPHILS (test code = 1013) 0.6 % PLATELET COUNT (test code = 1015) 282 K/UL CBC W/AUTO [id number] 00:00:00 Test Item Value Reference Range Interpretation Comments WBC (test code = 1001) 5.3 K/UL RBC (test code = 1002) 3.85 M/UL HEMOGLOBIN (test code = 1003) 11.0 G/DL HEMATOCRIT (test code = 1004) 31.9 % MCV (test code = 1005) 82.9 fL MCH (test code = 1006) 28.6 PG MCHC (test code = 1007) 34.5 G/DL RDW (test code = 1038) 14.2 % NEUTROPHILS (test code = 1008) 67.6 % LYMPHOCYTES (test code = 1010) 22.7 % MONOCYTES (test code = 1011) 4.9 % EOSINOPHILS (test code = 1012) 4.2 % BASOPHILS (test code = 1013) 0.6 % PLATELET COUNT (test code = 1015) 282 K/UL IRON BINDING CAPACITY AND IRON AND % [id number] 00:00:00 Test Item Value Reference Range Interpretation Comments IRON, SERUM (test code = 2) 62 UG/DL UNSATURATED IBC (test code = 83678) 284 UG/DL CALC TOTAL IBC (test code = 7) 346 UG/DL CALC % IRON SAT (test code = 9) 18 % IRON BINDING CAPACITY AND IRON AND % [id number] 00:00:00 Test Item Value Reference Range Interpretation Comments IRON, SERUM (test code = 2) 62 UG/DL UNSATURATED IBC (test code = 31277) 284 UG/DL CALC TOTAL IBC (test code = 7) 346 UG/DL CALC % IRON SAT (test code = 9) 18 % [id number] 00:00:00 Test Item Value Reference Range Interpretation Comments FERRITIN (test code = 5) 70 NG/ML [id number] 00:00:00 Test Item Value Reference Range Interpretation Comments FERRITIN (test code = 5) 70 NG/ML VITAMIN [id number] 00:00:00 Test Item Value Reference Range Interpretation Comments VITAMIN B-12 (test code = 2840) 457 PG/ML VITAMIN [id number] 00:00:00 Test Item Value Reference Range Interpretation Comments VITAMIN B-12 (test code = 2840) 457 PG/ML VITAMIN [id number] 00:00:00 Test Item Value Reference Range Interpretation Comments VITAMIN B-12 (test code = 2840) 457 PG/ML FOLIC [id number] 00:00:00 Test Item Value Reference Range Interpretation Comments FOLIC ACID (test code = 2695) 6.5 UG/L FOLIC [id number] 00:00:00 Test Item Value Reference Range Interpretation Comments FOLIC ACID (test code = 2695) 6.5 UG/L HEMOGLOBIN [id number] 00:00:00 Test Item Value Reference Range Interpretation Comments HEMOGLOBIN A1c (test code = 14099) 6.6 % HEMOGLOBIN [id number] 00:00:00 Test Item Value Reference Range Interpretation Comments HEMOGLOBIN A1c (test code = 14471) 6.6 % HEMOGLOBIN [id number] 00:00:00 Test Item Value Reference Range Interpretation Comments HEMOGLOBIN A1c (test code = 53546) 6.6 % IMMUNOGLOBULINS, IgA, IgG, [id number] 00:00:00 Test Item Value Reference Range Interpretation Comments IMMUNOGLOBULIN G (IgG) (test code 1060 MG/DL = 2573) IMMUNOGLOBULIN M (IgM) (test code 43 MG/DL = 2755) IMMUNOGLOBULIN A (IgA) (test code 141 MG/DL = 2753) IMMUNOGLOBULINS, IgA, IgG, [id number] 00:00:00 Test Item Value Reference Range Interpretation Comments IMMUNOGLOBULIN G (IgG) (test code 1060 MG/DL = 2573) IMMUNOGLOBULIN M (IgM) (test code 43 MG/DL = 2755) IMMUNOGLOBULIN A (IgA) (test code 141 MG/DL = 2753) COMPREHENSIVE METABOLIC [id number] 00:00:00 Test Item Value Reference Range Interpretation Comments GLUCOSE (test code = 2217) 218 MG/DL BUN (test code = 2208) 19 MG/DL CREATININE (test code = 2214) 1.01 MG/DL eGFR AMER. (test code 73 ML/MIN/1.73 = 19393) eGFR NON- AMER. (test 63 ML/MIN/1.73 code = 50357) CALC BUN/CREAT (test code = 19 RATIO 2235) SODIUM (test code = 2231) 141 MEQ/L POTASSIUM (test code = 2228) 3.8 MEQ/L CHLORIDE (test code = 2215) 101 MEQ/L CARBON DIOXIDE (test code = 24 MEQ/L 2206) CALCIUM (test code = 2209) 9.6 MG/DL PROTEIN, TOTAL (test code = 7.4 G/DL 2228) ALBUMIN (test code = 2201) 4.9 G/DL CALC GLOBULIN (test code = 2.5 G/DL 2240) CALC A/G RATIO (test code = 2.0 RATIO 2234) BILIRUBIN, TOTAL (test code = <0.2 MG/DL 220) ALKALINE PHOSPHATASE (test 83 U/L code = 2204) AST (test code = 2218) 48 U/L ALT (test code = 2219) 66 U/L COMPREHENSIVE METABOLIC [id number] 00:00:00 Test Item Value Reference Range Interpretation Comments GLUCOSE (test code = 2217) 218 MG/DL BUN (test code = 2208) 19 MG/DL CREATININE (test code = 2214) 1.01 MG/DL eGFR AMER. (test code 73 ML/MIN/1.73 = 74550) eGFR NON- AMER. (test 63 ML/MIN/1.73 code = 60233) CALC BUN/CREAT (test code = 19 RATIO 2235) SODIUM (test code = 2231) 141 MEQ/L POTASSIUM (test code = 2228) 3.8 MEQ/L CHLORIDE (test code = 2215) 101 MEQ/L CARBON DIOXIDE (test code = 24 MEQ/L 220) CALCIUM (test code = 2209) 9.6 MG/DL PROTEIN, TOTAL (test code = 7.4 G/DL 2228) ALBUMIN (test code = 2201) 4.9 G/DL CALC GLOBULIN (test code = 2.5 G/DL 2240) CALC A/G RATIO (test code = 2.0 RATIO 2234) BILIRUBIN, TOTAL (test code = <0.2 MG/DL 2206) ALKALINE PHOSPHATASE (test 83 U/L code = 2204) AST (test code = 2218) 48 U/L ALT (test code = 2219) 66 U/L [id number] 00:00:00 Test Item Value Reference Range Interpretation Comments MAGNESIUM (test code = 2226) 1.8 MG/DL [id number] 00:00:00 Test Item Value Reference Range Interpretation Comments MAGNESIUM (test code = 2226) 1.8 MG/DL [id number] 00:00:00 Test Item Value Reference Range Interpretation Comments MAGNESIUM (test code = 2226) 1.8 MG/DL URIC [id number] 00:00:00 Test Item Value Reference Range Interpretation Comments URIC ACID (test code = 2233) 3.4 MG/DL URIC [id number] 00:00:00 Test Item Value Reference Range Interpretation Comments URIC ACID (test code = 2233) 3.4 MG/DL CBC W/AUTO [id number] 00:00:00 Test Item Value Reference Range Interpretation Comments WBC (test code = 1001) 5.3 K/UL RBC (test code = 1002) 3.85 M/UL HEMOGLOBIN (test code = 1003) 11.0 G/DL HEMATOCRIT (test code = 1004) 31.9 % MCV (test code = 1005) 82.9 fL MCH (test code = 1006) 28.6 PG MCHC (test code = 1007) 34.5 G/DL RDW (test code = 1038) 14.2 % NEUTROPHILS (test code = 1008) 67.6 % LYMPHOCYTES (test code = 1010) 22.7 % MONOCYTES (test code = 1011) 4.9 % EOSINOPHILS (test code = 1012) 4.2 % BASOPHILS (test code = 1013) 0.6 % PLATELET COUNT (test code = 1015) 282 K/UL CBC W/AUTO [id number] 00:00:00 Test Item Value Reference Range Interpretation Comments WBC (test code = 1001) 5.3 K/UL RBC (test code = 1002) 3.85 M/UL HEMOGLOBIN (test code = 1003) 11.0 G/DL HEMATOCRIT (test code = 1004) 31.9 % MCV (test code = 1005) 82.9 fL MCH (test code = 1006) 28.6 PG MCHC (test code = 1007) 34.5 G/DL RDW (test code = 1038) 14.2 % NEUTROPHILS (test code = 1008) 67.6 % LYMPHOCYTES (test code = 1010) 22.7 % MONOCYTES (test code = 1011) 4.9 % EOSINOPHILS (test code = 1012) 4.2 % BASOPHILS (test code = 1013) 0.6 % PLATELET COUNT (test code = 1015) 282 K/UL IRON BINDING CAPACITY AND IRON AND % [id number] 00:00:00 Test Item Value Reference Range Interpretation Comments IRON, SERUM (test code = 2222) 62 UG/DL UNSATURATED IBC (test code = 56769) 284 UG/DL CALC TOTAL IBC (test code = 2076) 346 UG/DL CALC % IRON SAT (test code = 2078) 18 % [id number] 00:00:00 Test Item Value Reference Range Interpretation Comments FERRITIN (test code = 2074) 70 NG/ML VITAMIN [id number] 00:00:00 Test Item Value Reference Range Interpretation Comments VITAMIN B-12 (test code = 2840) 457 PG/ML VITAMIN [id number] 00:00:00 Test Item Value Reference Range Interpretation Comments VITAMIN B-12 (test code = 2840) 457 PG/ML FOLIC [id number] 00:00:00 Test Item Value Reference Range Interpretation Comments FOLIC ACID (test code = 2695) 6.5 UG/L HEMOGLOBIN [id number] 00:00:00 Test Item Value Reference Range Interpretation Comments HEMOGLOBIN A1c (test code = 69043) 6.6 % HEMOGLOBIN [id number] 00:00:00 Test Item Value Reference Range Interpretation Comments HEMOGLOBIN A1c (test code = 82130) 6.6 % IMMUNOGLOBULINS, IgA, IgG, [id number] 00:00:00 Test Item Value Reference Range Interpretation Comments IMMUNOGLOBULIN G (IgG) (test code 1060 MG/DL = 2573) IMMUNOGLOBULIN M (IgM) (test code 43 MG/DL = 2755) IMMUNOGLOBULIN A (IgA) (test code 141 MG/DL = 2753) COMPREHENSIVE METABOLIC [id number] 00:00:00 Test Item Value Reference Range Interpretation Comments GLUCOSE (test code = 2217) 218 MG/DL BUN (test code = 2208) 19 MG/DL CREATININE (test code = 2214) 1.01 MG/DL eGFR AMER. (test code 73 ML/MIN/1.73 = 88663) eGFR NON- AMER. (test 63 ML/MIN/1.73 code = 35157) CALC BUN/CREAT (test code = 19 RATIO 2235) SODIUM (test code = 2231) 141 MEQ/L POTASSIUM (test code = 2228) 3.8 MEQ/L CHLORIDE (test code = 2215) 101 MEQ/L CARBON DIOXIDE (test code = 24 MEQ/L 2206) CALCIUM (test code = 2209) 9.6 MG/DL PROTEIN, TOTAL (test code = 7.4 G/DL 2228) ALBUMIN (test code = 2201) 4.9 G/DL CALC GLOBULIN (test code = 2.5 G/DL 2239) CALC A/G RATIO (test code = 2.0 RATIO 4) BILIRUBIN, TOTAL (test code = <0.2 MG/DL 2206) ALKALINE PHOSPHATASE (test 83 U/L code = 2204) AST (test code = 2218) 48 U/L ALT (test code = 2219) 66 U/L [id number] 00:00:00 Test Item Value Reference Range Interpretation Comments MAGNESIUM (test code = 2226) 1.8 MG/DL [id number] 00:00:00 Test Item Value Reference Range Interpretation Comments MAGNESIUM (test code = 2226) 1.8 MG/DL URIC [id number] 00:00:00 Test Item Value Reference Range Interpretation Comments URIC ACID (test code = 2233) 3.4 MG/DL CBC W/AUTO [id number] 00:00:00 Test Item Value Reference Range Interpretation Comments WBC (test code = 1001) 5.3 K/UL RBC (test code = 1002) 3.85 M/UL HEMOGLOBIN (test code = 1003) 11.0 G/DL HEMATOCRIT (test code = 1004) 31.9 % MCV (test code = 1005) 82.9 fL MCH (test code = 1006) 28.6 PG MCHC (test code = 1007) 34.5 G/DL RDW (test code = 1038) 14.2 % NEUTROPHILS (test code = 1008) 67.6 % LYMPHOCYTES (test code = 1010) 22.7 % MONOCYTES (test code = 1011) 4.9 % EOSINOPHILS (test code = 1012) 4.2 % BASOPHILS (test code = 1013) 0.6 % PLATELET COUNT (test code = 1015) 282 K/UL CBC W/AUTO [id number] 00:00:00 Test Item Value Reference Range Interpretation Comments WBC (test code = 1001) 5.3 K/UL RBC (test code = 1002) 3.85 M/UL HEMOGLOBIN (test code = 1003) 11.0 G/DL HEMATOCRIT (test code = 1004) 31.9 % MCV (test code = 1005) 82.9 fL MCH (test code = 1006) 28.6 PG MCHC (test code = 1007) 34.5 G/DL RDW (test code = 1038) 14.2 % NEUTROPHILS (test code = 1008) 67.6 % LYMPHOCYTES (test code = 1010) 22.7 % MONOCYTES (test code = 1011) 4.9 % EOSINOPHILS (test code = 1012) 4.2 % BASOPHILS (test code = 1013) 0.6 % PLATELET COUNT (test code = 1015) 282 K/UL CBC W/AUTO [id number] 00:00:00 Test Item Value Reference Range Interpretation Comments WBC (test code = 1001) 5.3 K/UL RBC (test code = 1002) 3.85 M/UL HEMOGLOBIN (test code = 1003) 11.0 G/DL HEMATOCRIT (test code = 1004) 31.9 % MCV (test code = 1005) 82.9 fL MCH (test code = 1006) 28.6 PG MCHC (test code = 1007) 34.5 G/DL RDW (test code = 1038) 14.2 % NEUTROPHILS (test code = 1008) 67.6 % LYMPHOCYTES (test code = 1010) 22.7 % MONOCYTES (test code = 1011) 4.9 % EOSINOPHILS (test code = 1012) 4.2 % BASOPHILS (test code = 1013) 0.6 % PLATELET COUNT (test code = 1015) 282 K/UL IRON BINDING CAPACITY AND IRON AND % [id number] 00:00:00 Test Item Value Reference Range Interpretation Comments IRON, SERUM (test code = 2) 62 UG/DL UNSATURATED IBC (test code = 99845) 284 UG/DL CALC TOTAL IBC (test code = 7) 346 UG/DL CALC % IRON SAT (test code = 9) 18 % COMPREHENSIVE METABOLIC [id number] 00:00:00 Test Item Value Reference Range Interpretation Comments GLUCOSE (test code = 2217) 132 MG/DL BUN (test code = 2208) 18 MG/DL CREATININE (test code = 2214) 0.51 MG/DL eGFR AMER. (test code 126 ML/MIN/1.73 = 12245) eGFR NON- AMER. (test 109 ML/MIN/1.73 code = 97915) CALC BUN/CREAT (test code = 35 RATIO 2235) SODIUM (test code = 2231) 141 MEQ/L POTASSIUM (test code = 2228) 4.0 MEQ/L CHLORIDE (test code = 2215) 98 MEQ/L CARBON DIOXIDE (test code = 27 MEQ/L 2205) CALCIUM (test code = 2209) 9.6 MG/DL PROTEIN, TOTAL (test code = 7.4 G/DL 2228) ALBUMIN (test code = 2201) 4.2 G/DL CALC GLOBULIN (test code = 3.2 G/DL 2240) CALC A/G RATIO (test code = 1.3 RATIO 2234) BILIRUBIN, TOTAL (test code = 0.2 MG/DL 2206) ALKALINE PHOSPHATASE (test 129 U/L code = 2204) AST (test code = 2218) 35 U/L ALT (test code = 2219) 49 U/L COMPREHENSIVE METABOLIC [id number] 00:00:00 Test Item Value Reference Range Interpretation Comments GLUCOSE (test code = 2217) 132 MG/DL BUN (test code = 2208) 18 MG/DL CREATININE (test code = 2214) 0.51 MG/DL eGFR AMER. (test code 126 ML/MIN/1.73 = 04852) eGFR NON- AMER. (test 109 ML/MIN/1.73 code = 03583) CALC BUN/CREAT (test code = 35 RATIO 2235) SODIUM (test code = 2231) 141 MEQ/L POTASSIUM (test code = 2228) 4.0 MEQ/L CHLORIDE (test code = 2215) 98 MEQ/L CARBON DIOXIDE (test code = 27 MEQ/L 2205) CALCIUM (test code = 2209) 9.6 MG/DL PROTEIN, TOTAL (test code = 7.4 G/DL 2228) ALBUMIN (test code = 2201) 4.2 G/DL CALC GLOBULIN (test code = 3.2 G/DL 2240) CALC A/G RATIO (test code = 1.3 RATIO 2234) BILIRUBIN, TOTAL (test code = 0.2 MG/DL 2206) ALKALINE PHOSPHATASE (test 129 U/L code = 2204) AST (test code = 2218) 35 U/L ALT (test code = 2219) 49 U/L MICROALBUMIN/CREATININE, RANDOM AND [id number] 00:00:00 Test Item Value Reference Range Interpretation Comments CREATININE, URINE, CONC. (test 107.5 MG/DL code = 2072) ALBUMIN, URINE, RANDOM (test code 16.1 MG/DL = 96735) CALC ALBUMIN/CREAT, RND (test 150 MG/G code = 33315) MICROALBUMIN/CREATININE, RANDOM AND [id number] 00:00:00 Test Item Value Reference Range Interpretation Comments CREATININE, URINE, CONC. (test 107.5 MG/DL code = 2072) ALBUMIN, URINE, RANDOM (test code 16.1 MG/DL = 99490) CALC ALBUMIN/CREAT, RND (test 150 MG/G code = 53963) LIPID [id number] 00:00:00 Test Item Value Reference Range Interpretation Comments CHOLESTEROL (test code = 2210) 224 MG/DL TRIGLYCERIDES (test code = 2232) 558 MG/DL HDL CHOLESTEROL (test code = 40 MG/DL 2220) CALC LDL CHOL (test code = 2237) NOTE MG/DL RISK RATIO LDL/HDL (test code = (NOTE) RATIO 2238) LIPID [id number] 00:00:00 Test Item Value Reference Range Interpretation Comments CHOLESTEROL (test code = 2210) 224 MG/DL TRIGLYCERIDES (test code = 2232) 558 MG/DL HDL CHOLESTEROL (test code = 40 MG/DL 2220) CALC LDL CHOL (test code = 2237) NOTE MG/DL RISK RATIO LDL/HDL (test code = (NOTE) RATIO 2238) COMPREHENSIVE METABOLIC [id number] 00:00:00 Test Item Value Reference Range Interpretation Comments GLUCOSE (test code = 2217) 132 MG/DL BUN (test code = 2208) 18 MG/DL CREATININE (test code = 2214) 0.51 MG/DL eGFR AMER. (test code 126 ML/MIN/1.73 = 17366) eGFR NON- AMER. (test 109 ML/MIN/1.73 code = 14503) CALC BUN/CREAT (test code = 35 RATIO 2235) SODIUM (test code = 2231) 141 MEQ/L POTASSIUM (test code = 2228) 4.0 MEQ/L CHLORIDE (test code = 2215) 98 MEQ/L CARBON DIOXIDE (test code = 27 MEQ/L 2205) CALCIUM (test code = 2209) 9.6 MG/DL PROTEIN, TOTAL (test code = 7.4 G/DL 2228) ALBUMIN (test code = 2201) 4.2 G/DL CALC GLOBULIN (test code = 3.2 G/DL 2240) CALC A/G RATIO (test code = 1.3 RATIO 2234) BILIRUBIN, TOTAL (test code = 0.2 MG/DL 2206) ALKALINE PHOSPHATASE (test 129 U/L code = 2204) AST (test code = 2218) 35 U/L ALT (test code = 2219) 49 U/L COMPREHENSIVE METABOLIC [id number] 00:00:00 Test Item Value Reference Range Interpretation Comments GLUCOSE (test code = 2217) 132 MG/DL BUN (test code = 2208) 18 MG/DL CREATININE (test code = 2214) 0.51 MG/DL eGFR AMER. (test code 126 ML/MIN/1.73 = 76892) eGFR NON- AMER. (test 109 ML/MIN/1.73 code = 97703) CALC BUN/CREAT (test code = 35 RATIO 2235) SODIUM (test code = 2231) 141 MEQ/L POTASSIUM (test code = 2228) 4.0 MEQ/L CHLORIDE (test code = 2215) 98 MEQ/L CARBON DIOXIDE (test code = 27 MEQ/L 2206) CALCIUM (test code = 2209) 9.6 MG/DL PROTEIN, TOTAL (test code = 7.4 G/DL 2228) ALBUMIN (test code = 2201) 4.2 G/DL CALC GLOBULIN (test code = 3.2 G/DL 2240) CALC A/G RATIO (test code = 1.3 RATIO 2234) BILIRUBIN, TOTAL (test code = 0.2 MG/DL 7) ALKALINE PHOSPHATASE (test 129 U/L code = 2204) AST (test code = 2218) 35 U/L ALT (test code = 2219) 49 U/L MICROALBUMIN/CREATININE, RANDOM AND [id number] 00:00:00 Test Item Value Reference Range Interpretation Comments CREATININE, URINE, CONC. (test 107.5 MG/DL code = 2072) ALBUMIN, URINE, RANDOM (test code 16.1 MG/DL = 60578) CALC ALBUMIN/CREAT, RND (test 150 MG/G code = 48857) MICROALBUMIN/CREATININE, RANDOM AND [id number] 00:00:00 Test Item Value Reference Range Interpretation Comments CREATININE, URINE, CONC. (test 107.5 MG/DL code = 2072) ALBUMIN, URINE, RANDOM (test code 16.1 MG/DL = 06252) CALC ALBUMIN/CREAT, RND (test 150 MG/G code = 45684) LIPID [id number] 00:00:00 Test Item Value Reference Range Interpretation Comments CHOLESTEROL (test code = 2210) 224 MG/DL TRIGLYCERIDES (test code = 2232) 558 MG/DL HDL CHOLESTEROL (test code = 40 MG/DL 2220) CALC LDL CHOL (test code = 2237) NOTE MG/DL RISK RATIO LDL/HDL (test code = (NOTE) RATIO 2238) LIPID [id number] 00:00:00 Test Item Value Reference Range Interpretation Comments CHOLESTEROL (test code = 2210) 224 MG/DL TRIGLYCERIDES (test code = 2232) 558 MG/DL HDL CHOLESTEROL (test code = 40 MG/DL 2220) CALC LDL CHOL (test code = 2237) NOTE MG/DL RISK RATIO LDL/HDL (test code = (NOTE) RATIO 2238) COMPREHENSIVE METABOLIC [id number] 00:00:00 Test Item Value Reference Range Interpretation Comments GLUCOSE (test code = 2217) 132 MG/DL BUN (test code = 2208) 18 MG/DL CREATININE (test code = 2214) 0.51 MG/DL eGFR AMER. (test code 126 ML/MIN/1.73 = 89664) eGFR NON- AMER. (test 109 ML/MIN/1.73 code = 98429) CALC BUN/CREAT (test code = 35 RATIO 2235) SODIUM (test code = 2231) 141 MEQ/L POTASSIUM (test code = 2228) 4.0 MEQ/L CHLORIDE (test code = 2215) 98 MEQ/L CARBON DIOXIDE (test code = 27 MEQ/L 220) CALCIUM (test code = 2209) 9.6 MG/DL PROTEIN, TOTAL (test code = 7.4 G/DL 2228) ALBUMIN (test code = 2201) 4.2 G/DL CALC GLOBULIN (test code = 3.2 G/DL 2240) CALC A/G RATIO (test code = 1.3 RATIO 2234) BILIRUBIN, TOTAL (test code = 0.2 MG/DL 2206) ALKALINE PHOSPHATASE (test 129 U/L code = 2204) AST (test code = 2218) 35 U/L ALT (test code = 2219) 49 U/L COMPREHENSIVE METABOLIC [id number] 00:00:00 Test Item Value Reference Range Interpretation Comments GLUCOSE (test code = 2217) 132 MG/DL BUN (test code = 2208) 18 MG/DL CREATININE (test code = 2214) 0.51 MG/DL eGFR AMER. (test code 126 ML/MIN/1.73 = 90365) eGFR NON- AMER. (test 109 ML/MIN/1.73 code = 16395) CALC BUN/CREAT (test code = 35 RATIO 2235) SODIUM (test code = 2231) 141 MEQ/L POTASSIUM (test code = 2228) 4.0 MEQ/L CHLORIDE (test code = 2215) 98 MEQ/L CARBON DIOXIDE (test code = 27 MEQ/L 2205) CALCIUM (test code = 2209) 9.6 MG/DL PROTEIN, TOTAL (test code = 7.4 G/DL 2228) ALBUMIN (test code = 2201) 4.2 G/DL CALC GLOBULIN (test code = 3.2 G/DL 0) CALC A/G RATIO (test code = 1.3 RATIO 2233) BILIRUBIN, TOTAL (test code = 0.2 MG/DL 2206) ALKALINE PHOSPHATASE (test 129 U/L code = 2204) AST (test code = 2218) 35 U/L ALT (test code = 2219) 49 U/L MICROALBUMIN/CREATININE, RANDOM AND [id number] 00:00:00 Test Item Value Reference Range Interpretation Comments CREATININE, URINE, CONC. (test 107.5 MG/DL code = 2072) ALBUMIN, URINE, RANDOM (test code 16.1 MG/DL = 63815) CALC ALBUMIN/CREAT, RND (test 150 MG/G code = 81342) MICROALBUMIN/CREATININE, RANDOM AND [id number] 00:00:00 Test Item Value Reference Range Interpretation Comments CREATININE, URINE, CONC. (test 107.5 MG/DL code = 2072) ALBUMIN, URINE, RANDOM (test code 16.1 MG/DL = 44189) CALC ALBUMIN/CREAT, RND (test 150 MG/G code = 15241) LIPID [id number] 00:00:00 Test Item Value Reference Range Interpretation Comments CHOLESTEROL (test code = 2210) 224 MG/DL TRIGLYCERIDES (test code = 2232) 558 MG/DL HDL CHOLESTEROL (test code = 40 MG/DL 2220) CALC LDL CHOL (test code = 2237) NOTE MG/DL RISK RATIO LDL/HDL (test code = (NOTE) RATIO 2238) COMPREHENSIVE METABOLIC [id number] 00:00:00 Test Item Value Reference Range Interpretation Comments GLUCOSE (test code = 2217) 132 MG/DL BUN (test code = 2208) 18 MG/DL CREATININE (test code = 2214) 0.51 MG/DL eGFR AMER. (test code 126 ML/MIN/1.73 = 39075) eGFR NON- AMER. (test 109 ML/MIN/1.73 code = 97294) CALC BUN/CREAT (test code = 35 RATIO 2235) SODIUM (test code = 2231) 141 MEQ/L POTASSIUM (test code = 2228) 4.0 MEQ/L CHLORIDE (test code = 2215) 98 MEQ/L CARBON DIOXIDE (test code = 27 MEQ/L 2205) CALCIUM (test code = 2209) 9.6 MG/DL PROTEIN, TOTAL (test code = 7.4 G/DL 2228) ALBUMIN (test code = 2201) 4.2 G/DL CALC GLOBULIN (test code = 3.2 G/DL 2240) CALC A/G RATIO (test code = 1.3 RATIO 2234) BILIRUBIN, TOTAL (test code = 0.2 MG/DL 2206) ALKALINE PHOSPHATASE (test 129 U/L code = 2204) AST (test code = 2218) 35 U/L ALT (test code = 2219) 49 U/L MICROALBUMIN/CREATININE, RANDOM AND [id number] 00:00:00 Test Item Value Reference Range Interpretation Comments CREATININE, URINE, CONC. (test 107.5 MG/DL code = 2072) ALBUMIN, URINE, RANDOM (test code 16.1 MG/DL = 92437) CALC ALBUMIN/CREAT, RND (test 150 MG/G code = 69457) LIPID [id number] 00:00:00 Test Item Value Reference Range Interpretation Comments CHOLESTEROL (test code = 2210) 224 MG/DL TRIGLYCERIDES (test code = 2232) 558 MG/DL HDL CHOLESTEROL (test code = 40 MG/DL 2220) CALC LDL CHOL (test code = 2237) NOTE MG/DL RISK RATIO LDL/HDL (test code = (NOTE) RATIO 2238) LIPID [id number] 00:00:00 Test Item Value Reference Range Interpretation Comments CHOLESTEROL (test code = 2210) 224 MG/DL TRIGLYCERIDES (test code = 2232) 558 MG/DL HDL CHOLESTEROL (test code = 40 MG/DL 2220) CALC LDL CHOL (test code = 2237) NOTE MG/DL RISK RATIO LDL/HDL (test code = (NOTE) RATIO 2238) COMPREHENSIVE METABOLIC [id number] 00:00:00 Test Item Value Reference Range Interpretation Comments GLUCOSE (test code = 2217) 99 MG/DL BUN (test code = 2208) 13 MG/DL CREATININE (test code = 2214) 0.63 MG/DL eGFR AMER. (test code 119 ML/MIN/1.73 = 41647) eGFR NON- AMER. (test 102 ML/MIN/1.73 code = 82906) CALC BUN/CREAT (test code = 21 RATIO 2235) SODIUM (test code = 2231) 143 MEQ/L POTASSIUM (test code = 2228) 3.6 MEQ/L CHLORIDE (test code = 2215) 101 MEQ/L CARBON DIOXIDE (test code = 25 MEQ/L 2205) CALCIUM (test code = 2209) 9.4 MG/DL PROTEIN, TOTAL (test code = 7.5 G/DL 2228) ALBUMIN (test code = 2201) 4.7 G/DL CALC GLOBULIN (test code = 2.8 G/DL 224) CALC A/G RATIO (test code = 1.7 RATIO 2234) BILIRUBIN, TOTAL (test code = 0.2 MG/DL 2206) ALKALINE PHOSPHATASE (test 108 U/L code = 2204) AST (test code = 2218) 26 U/L ALT (test code = 2219) 22 U/L COMPREHENSIVE METABOLIC [id number] 00:00:00 Test Item Value Reference Range Interpretation Comments GLUCOSE (test code = 2217) 99 MG/DL BUN (test code = 2208) 13 MG/DL CREATININE (test code = 2214) 0.63 MG/DL eGFR AMER. (test code 119 ML/MIN/1.73 = 74307) eGFR NON- AMER. (test 102 ML/MIN/1.73 code = 51012) CALC BUN/CREAT (test code = 21 RATIO 2235) SODIUM (test code = 2231) 143 MEQ/L POTASSIUM (test code = 2228) 3.6 MEQ/L CHLORIDE (test code = 2215) 101 MEQ/L CARBON DIOXIDE (test code = 25 MEQ/L 2205) CALCIUM (test code = 2209) 9.4 MG/DL PROTEIN, TOTAL (test code = 7.5 G/DL 2228) ALBUMIN (test code = 2201) 4.7 G/DL CALC GLOBULIN (test code = 2.8 G/DL 2240) CALC A/G RATIO (test code = 1.7 RATIO 2234) BILIRUBIN, TOTAL (test code = 0.2 MG/DL 2206) ALKALINE PHOSPHATASE (test 108 U/L code = 2204) AST (test code = 2218) 26 U/L ALT (test code = 2219) 22 U/L COMPREHENSIVE METABOLIC [id number] 00:00:00 Test Item Value Reference Range Interpretation Comments GLUCOSE (test code = 2217) 99 MG/DL BUN (test code = 2208) 13 MG/DL CREATININE (test code = 2214) 0.63 MG/DL eGFR AMER. (test code 119 ML/MIN/1.73 = 84782) eGFR NON- AMER. (test 102 ML/MIN/1.73 code = 13259) CALC BUN/CREAT (test code = 21 RATIO 2235) SODIUM (test code = 2231) 143 MEQ/L POTASSIUM (test code = 2228) 3.6 MEQ/L CHLORIDE (test code = 2215) 101 MEQ/L CARBON DIOXIDE (test code = 25 MEQ/L 220) CALCIUM (test code = 2209) 9.4 MG/DL PROTEIN, TOTAL (test code = 7.5 G/DL 2228) ALBUMIN (test code = 2201) 4.7 G/DL CALC GLOBULIN (test code = 2.8 G/DL 2240) CALC A/G RATIO (test code = 1.7 RATIO 2234) BILIRUBIN, TOTAL (test code = 0.2 MG/DL 2206) ALKALINE PHOSPHATASE (test 108 U/L code = 2204) AST (test code = 2218) 26 U/L ALT (test code = 2219) 22 U/L COMPREHENSIVE METABOLIC [id number] 00:00:00 Test Item Value Reference Range Interpretation Comments GLUCOSE (test code = 2217) 99 MG/DL BUN (test code = 2208) 13 MG/DL CREATININE (test code = 2214) 0.63 MG/DL eGFR AMER. (test code 119 ML/MIN/1.73 = 27066) eGFR NON- AMER. (test 102 ML/MIN/1.73 code = 65441) CALC BUN/CREAT (test code = 21 RATIO 2235) SODIUM (test code = 2231) 143 MEQ/L POTASSIUM (test code = 2228) 3.6 MEQ/L CHLORIDE (test code = 2215) 101 MEQ/L CARBON DIOXIDE (test code = 25 MEQ/L 6) CALCIUM (test code = 2209) 9.4 MG/DL PROTEIN, TOTAL (test code = 7.5 G/DL 2228) ALBUMIN (test code = 2201) 4.7 G/DL CALC GLOBULIN (test code = 2.8 G/DL 2240) CALC A/G RATIO (test code = 1.7 RATIO 2234) BILIRUBIN, TOTAL (test code = 0.2 MG/DL 2206) ALKALINE PHOSPHATASE (test 108 U/L code = 2204) AST (test code = 2218) 26 U/L ALT (test code = 2219) 22 U/L COMPREHENSIVE METABOLIC [id number] 00:00:00 Test Item Value Reference Range Interpretation Comments GLUCOSE (test code = 2217) 99 MG/DL BUN (test code = 2208) 13 MG/DL CREATININE (test code = 2214) 0.63 MG/DL eGFR AMER. (test code 119 ML/MIN/1.73 = 98353) eGFR NON- AMER. (test 102 ML/MIN/1.73 code = 24667) CALC BUN/CREAT (test code = 21 RATIO 2235) SODIUM (test code = 2231) 143 MEQ/L POTASSIUM (test code = 2228) 3.6 MEQ/L CHLORIDE (test code = 2215) 101 MEQ/L CARBON DIOXIDE (test code = 25 MEQ/L 2206) CALCIUM (test code = 2209) 9.4 MG/DL PROTEIN, TOTAL (test code = 7.5 G/DL 2229) ALBUMIN (test code = 2201) 4.7 G/DL CALC GLOBULIN (test code = 2.8 G/DL 2240) CALC A/G RATIO (test code = 1.7 RATIO 2234) BILIRUBIN, TOTAL (test code = 0.2 MG/DL 220) ALKALINE PHOSPHATASE (test 108 U/L code = 2204) AST (test code = 2218) 26 U/L ALT (test code = 2219) 22 U/L COMPREHENSIVE METABOLIC [id number] 00:00:00 Test Item Value Reference Range Interpretation Comments GLUCOSE (test code = 2217) 99 MG/DL BUN (test code = 2208) 13 MG/DL CREATININE (test code = 2214) 0.63 MG/DL eGFR AMER. (test code 119 ML/MIN/1.73 = 54812) eGFR NON- AMER. (test 102 ML/MIN/1.73 code = 42224) CALC BUN/CREAT (test code = 21 RATIO 2235) SODIUM (test code = 2231) 143 MEQ/L POTASSIUM (test code = 2228) 3.6 MEQ/L CHLORIDE (test code = 2215) 101 MEQ/L CARBON DIOXIDE (test code = 25 MEQ/L 2205) CALCIUM (test code = 2209) 9.4 MG/DL PROTEIN, TOTAL (test code = 7.5 G/DL 2229) ALBUMIN (test code = 2201) 4.7 G/DL CALC GLOBULIN (test code = 2.8 G/DL 2240) CALC A/G RATIO (test code = 1.7 RATIO 2234) BILIRUBIN, TOTAL (test code = 0.2 MG/DL 7) ALKALINE PHOSPHATASE (test 108 U/L code = 2204) AST (test code = 2218) 26 U/L ALT (test code = 2219) 22 U/L COMPREHENSIVE METABOLIC [id number] 00:00:00 Test Item Value Reference Range Interpretation Comments GLUCOSE (test code = 2217) 99 MG/DL BUN (test code = 2208) 13 MG/DL CREATININE (test code = 2214) 0.63 MG/DL eGFR AMER. (test code 119 ML/MIN/1.73 = 12990) eGFR NON- AMER. (test 102 ML/MIN/1.73 code = 57922) CALC BUN/CREAT (test code = 21 RATIO 2235) SODIUM (test code = 2231) 143 MEQ/L POTASSIUM (test code = 2228) 3.6 MEQ/L CHLORIDE (test code = 2215) 101 MEQ/L CARBON DIOXIDE (test code = 25 MEQ/L 2205) CALCIUM (test code = 2209) 9.4 MG/DL PROTEIN, TOTAL (test code = 7.5 G/DL 2228) ALBUMIN (test code = 2201) 4.7 G/DL CALC GLOBULIN (test code = 2.8 G/DL 224) CALC A/G RATIO (test code = 1.7 RATIO 2233) BILIRUBIN, TOTAL (test code = 0.2 MG/DL 2206) ALKALINE PHOSPHATASE (test 108 U/L code = 220) AST (test code = 2218) 26 U/L ALT (test code = 2219) 22 U/L PROTEIN, 24 HOUR [id number] 00:00:00 Test Item Value Reference Range Interpretation Comments PROTEIN, URINE, CONC. (test 17 MG/DL code = 2104) PROTEIN, URINE 24 HR (test 136 MG/24HOURS code = 2060) TOTAL URINE VOLUME (test code 800 ML = 2056) PROTEIN, 24 HOUR [id number] 00:00:00 Test Item Value Reference Range Interpretation Comments PROTEIN, URINE, CONC. (test 17 MG/DL code = 2104) PROTEIN, URINE 24 HR (test 136 MG/24HOURS code = 2060) TOTAL URINE VOLUME (test code 800 ML = 2056) PROTEIN, 24 HOUR [id number] 00:00:00 Test Item Value Reference Range Interpretation Comments PROTEIN, URINE, CONC. (test 17 MG/DL code = 2104) PROTEIN, URINE 24 HR (test 136 MG/24HOURS code = 2060) TOTAL URINE VOLUME (test code 800 ML = 2056) PROTEIN, 24 HOUR [id number] 00:00:00 Test Item Value Reference Range Interpretation Comments PROTEIN, URINE, CONC. (test 17 MG/DL code = 2104) PROTEIN, URINE 24 HR (test 136 MG/24HOURS code = 2060) TOTAL URINE VOLUME (test code 800 ML = 2056) PROTEIN, 24 HOUR [id number] 00:00:00 Test Item Value Reference Range Interpretation Comments PROTEIN, URINE, CONC. (test 17 MG/DL code = 2104) PROTEIN, URINE 24 HR (test 136 MG/24HOURS code = 2060) TOTAL URINE VOLUME (test code 800 ML = 2056) PROTEIN, 24 HOUR [id number] 00:00:00 Test Item Value Reference Range Interpretation Comments PROTEIN, URINE, CONC. (test 17 MG/DL code = 2104) PROTEIN, URINE 24 HR (test 136 MG/24HOURS code = 2060) TOTAL URINE VOLUME (test code 800 ML = 2056) PROTEIN, 24 HOUR [id number] 00:00:00 Test Item Value Reference Range Interpretation Comments PROTEIN, URINE, CONC. (test 17 MG/DL code = 2104) PROTEIN, URINE 24 HR (test 136 MG/24HOURS code = 2060) TOTAL URINE VOLUME (test code 800 ML = 2056) LIPID [id number] 00:00:00 Test Item Value Reference Range Interpretation Comments CHOLESTEROL (test code = 2210) 143 MG/DL TRIGLYCERIDES (test code = 2232) 325 MG/DL HDL CHOLESTEROL (test code = 2220) 28 MG/DL CALC LDL CHOL (test code = 2237) 50 MG/DL RISK RATIO LDL/HDL (test code = 1.79 RATIO 2238) HEMOGLOBIN [id number] 00:00:00 Test Item Value Reference Range Interpretation Comments HEMOGLOBIN A1c (test code = 03785) 6.5 % HEMOGLOBIN [id number] 00:00:00 Test Item Value Reference Range Interpretation Comments HEMOGLOBIN A1c (test code = 21447) 6.5 % HEMOGLOBIN [id number] 00:00:00 Test Item Value Reference Range Interpretation Comments HEMOGLOBIN A1c (test code = 60034) 6.5 % LIPID [id number] 00:00:00 Test Item Value Reference Range Interpretation Comments CHOLESTEROL (test code = 2210) 143 MG/DL TRIGLYCERIDES (test code = 2232) 325 MG/DL HDL CHOLESTEROL (test code = 2220) 28 MG/DL CALC LDL CHOL (test code = 2237) 50 MG/DL RISK RATIO LDL/HDL (test code = 1.79 RATIO 2238) LIPID [id number] 00:00:00 Test Item Value Reference Range Interpretation Comments CHOLESTEROL (test code = 2210) 143 MG/DL TRIGLYCERIDES (test code = 2232) 325 MG/DL HDL CHOLESTEROL (test code = 2220) 28 MG/DL CALC LDL CHOL (test code = 2237) 50 MG/DL RISK RATIO LDL/HDL (test code = 1.79 RATIO 2238) HEMOGLOBIN [id number] 00:00:00 Test Item Value Reference Range Interpretation Comments HEMOGLOBIN A1c (test code = 63441) 6.5 % HEMOGLOBIN [id number] 00:00:00 Test Item Value Reference Range Interpretation Comments HEMOGLOBIN A1c (test code = 34070) 6.5 % HEMOGLOBIN [id number] 00:00:00 Test Item Value Reference Range Interpretation Comments HEMOGLOBIN A1c (test code = 06214) 6.5 % LIPID [id number] 00:00:00 Test Item Value Reference Range Interpretation Comments CHOLESTEROL (test code = 2210) 143 MG/DL TRIGLYCERIDES (test code = 2232) 325 MG/DL HDL CHOLESTEROL (test code = 2220) 28 MG/DL CALC LDL CHOL (test code = 2237) 50 MG/DL RISK RATIO LDL/HDL (test code = 1.79 RATIO 2238) LIPID [id number] 00:00:00 Test Item Value Reference Range Interpretation Comments CHOLESTEROL (test code = 2210) 143 MG/DL TRIGLYCERIDES (test code = 2232) 325 MG/DL HDL CHOLESTEROL (test code = 2220) 28 MG/DL CALC LDL CHOL (test code = 2237) 50 MG/DL RISK RATIO LDL/HDL (test code = 1.79 RATIO 2238) HEMOGLOBIN [id number] 00:00:00 Test Item Value Reference Range Interpretation Comments HEMOGLOBIN A1c (test code = 21430) 6.5 % HEMOGLOBIN [id number] 00:00:00 Test Item Value Reference Range Interpretation Comments HEMOGLOBIN A1c (test code = 88972) 6.5 % LIPID [id number] 00:00:00 Test Item Value Reference Range Interpretation Comments CHOLESTEROL (test code = 2210) 143 MG/DL TRIGLYCERIDES (test code = 2232) 325 MG/DL HDL CHOLESTEROL (test code = 2220) 28 MG/DL CALC LDL CHOL (test code = 2237) 50 MG/DL RISK RATIO LDL/HDL (test code = 1.79 RATIO 2238) HEMOGLOBIN [id number] 00:00:00 Test Item Value Reference Range Interpretation Comments HEMOGLOBIN A1c (test code = 68855) 6.5 % HEMOGLOBIN [id number] 00:00:00 Test Item Value Reference Range Interpretation Comments HEMOGLOBIN A1c (test code = 12366) 6.5 % HEMOGLOBIN [id number] 00:00:00 Test Item Value Reference Range Interpretation Comments HEMOGLOBIN A1c (test code = 71474) 6.5 % LIPID [id number] 00:00:00 Test Item Value Reference Range Interpretation Comments CHOLESTEROL (test code = 2210) 143 MG/DL TRIGLYCERIDES (test code = 2232) 325 MG/DL HDL CHOLESTEROL (test code = 2220) 28 MG/DL CALC LDL CHOL (test code = 2237) 50 MG/DL RISK RATIO LDL/HDL (test code = 1.79 RATIO 2238) COMPREHENSIVE METABOLIC [id number] 00:00:00 Test Item Value Reference Range Interpretation Comments GLUCOSE (test code = 2217) 112 MG/DL BUN (test code = 2208) 24 MG/DL CREATININE (test code = 2214) 0.83 MG/DL eGFR AMER. (test code 93 ML/MIN/1.73 = 97061) eGFR NON- AMER. (test 81 ML/MIN/1.73 code = 47828) CALC BUN/CREAT (test code = 29 RATIO 2235) SODIUM (test code = 2231) 141 MEQ/L POTASSIUM (test code = 2228) 4.5 MEQ/L CHLORIDE (test code = 2215) 97 MEQ/L CARBON DIOXIDE (test code = 25 MEQ/L 2205) CALCIUM (test code = 2209) 10.2 MG/DL PROTEIN, TOTAL (test code = 8.3 G/DL 2228) ALBUMIN (test code = 2201) 4.9 G/DL CALC GLOBULIN (test code = 3.4 G/DL 0) CALC A/G RATIO (test code = 1.4 RATIO 2234) BILIRUBIN, TOTAL (test code = 0.2 MG/DL 2206) ALKALINE PHOSPHATASE (test 129 U/L code = 2204) AST (test code = 2218) 42 U/L ALT (test code = 2219) 37 U/L COMPREHENSIVE METABOLIC [id number] 00:00:00 Test Item Value Reference Range Interpretation Comments GLUCOSE (test code = 2217) 112 MG/DL BUN (test code = 2208) 24 MG/DL CREATININE (test code = 2214) 0.83 MG/DL eGFR AMER. (test code 93 ML/MIN/1.73 = 90156) eGFR NON- AMER. (test 81 ML/MIN/1.73 code = 27742) CALC BUN/CREAT (test code = 29 RATIO 2235) SODIUM (test code = 2231) 141 MEQ/L POTASSIUM (test code = 2228) 4.5 MEQ/L CHLORIDE (test code = 2215) 97 MEQ/L CARBON DIOXIDE (test code = 25 MEQ/L 220) CALCIUM (test code = 2209) 10.2 MG/DL PROTEIN, TOTAL (test code = 8.3 G/DL 2228) ALBUMIN (test code = 2201) 4.9 G/DL CALC GLOBULIN (test code = 3.4 G/DL 2240) CALC A/G RATIO (test code = 1.4 RATIO 2234) BILIRUBIN, TOTAL (test code = 0.2 MG/DL 2206) ALKALINE PHOSPHATASE (test 129 U/L code = 2204) AST (test code = 2218) 42 U/L ALT (test code = 2219) 37 U/L MICROALBUMIN/CREATININE, RANDOM AND [id number] 00:00:00 Test Item Value Reference Range Interpretation Comments CREATININE, URINE, CONC. (test 176.5 MG/DL code = 2072) MICROALBUMIN, RANDOM (test code = 8.5 MG/DL 93755) CALC MICROALB/CREAT RND (test 48 MG/G code = 96248) MICROALBUMIN/CREATININE, RANDOM AND [id number] 00:00:00 Test Item Value Reference Range Interpretation Comments CREATININE, URINE, CONC. (test 176.5 MG/DL code = 2072) MICROALBUMIN, RANDOM (test code = 8.5 MG/DL 30538) CALC MICROALB/CREAT RND (test 48 MG/G code = 11653) COMPREHENSIVE METABOLIC [id number] 00:00:00 Test Item Value Reference Range Interpretation Comments GLUCOSE (test code = 2217) 112 MG/DL BUN (test code = 2208) 24 MG/DL CREATININE (test code = 2214) 0.83 MG/DL eGFR AMER. (test code 93 ML/MIN/1.73 = 14558) eGFR NON- AMER. (test 81 ML/MIN/1.73 code = 11816) CALC BUN/CREAT (test code = 29 RATIO 2235) SODIUM (test code = 2231) 141 MEQ/L POTASSIUM (test code = 2228) 4.5 MEQ/L CHLORIDE (test code = 2215) 97 MEQ/L CARBON DIOXIDE (test code = 25 MEQ/L 2206) CALCIUM (test code = 2209) 10.2 MG/DL PROTEIN, TOTAL (test code = 8.3 G/DL 2228) ALBUMIN (test code = 2201) 4.9 G/DL CALC GLOBULIN (test code = 3.4 G/DL 2240) CALC A/G RATIO (test code = 1.4 RATIO 2234) BILIRUBIN, TOTAL (test code = 0.2 MG/DL 2206) ALKALINE PHOSPHATASE (test 129 U/L code = 220) AST (test code = 2218) 42 U/L ALT (test code = 2219) 37 U/L COMPREHENSIVE METABOLIC [id number] 00:00:00 Test Item Value Reference Range Interpretation Comments GLUCOSE (test code = 2217) 112 MG/DL BUN (test code = 2208) 24 MG/DL CREATININE (test code = 2214) 0.83 MG/DL eGFR AMER. (test code 93 ML/MIN/1.73 = 49060) eGFR NON- AMER. (test 81 ML/MIN/1.73 code = 57093) CALC BUN/CREAT (test code = 29 RATIO 2235) SODIUM (test code = 2231) 141 MEQ/L POTASSIUM (test code = 2228) 4.5 MEQ/L CHLORIDE (test code = 2215) 97 MEQ/L CARBON DIOXIDE (test code = 25 MEQ/L 2206) CALCIUM (test code = 2209) 10.2 MG/DL PROTEIN, TOTAL (test code = 8.3 G/DL 2228) ALBUMIN (test code = 2201) 4.9 G/DL CALC GLOBULIN (test code = 3.4 G/DL 2240) CALC A/G RATIO (test code = 1.4 RATIO 2234) BILIRUBIN, TOTAL (test code = 0.2 MG/DL 2206) ALKALINE PHOSPHATASE (test 129 U/L code = 2204) AST (test code = 2218) 42 U/L ALT (test code = 2219) 37 U/L MICROALBUMIN/CREATININE, RANDOM AND [id number] 00:00:00 Test Item Value Reference Range Interpretation Comments CREATININE, URINE, CONC. (test 176.5 MG/DL code = 2072) MICROALBUMIN, RANDOM (test code = 8.5 MG/DL 82792) CALC MICROALB/CREAT RND (test 48 MG/G code = 87415) MICROALBUMIN/CREATININE, RANDOM AND [id number] 00:00:00 Test Item Value Reference Range Interpretation Comments CREATININE, URINE, CONC. (test 176.5 MG/DL code = 2072) MICROALBUMIN, RANDOM (test code = 8.5 MG/DL 87316) CALC MICROALB/CREAT RND (test 48 MG/G code = 21827) COMPREHENSIVE METABOLIC [id number] 00:00:00 Test Item Value Reference Range Interpretation Comments GLUCOSE (test code = 2217) 112 MG/DL BUN (test code = 2208) 24 MG/DL CREATININE (test code = 2214) 0.83 MG/DL eGFR AMER. (test code 93 ML/MIN/1.73 = 43064) eGFR NON- AMER. (test 81 ML/MIN/1.73 code = 90315) CALC BUN/CREAT (test code = 29 RATIO 2235) SODIUM (test code = 2231) 141 MEQ/L POTASSIUM (test code = 2228) 4.5 MEQ/L CHLORIDE (test code = 2215) 97 MEQ/L CARBON DIOXIDE (test code = 25 MEQ/L 2206) CALCIUM (test code = 2209) 10.2 MG/DL PROTEIN, TOTAL (test code = 8.3 G/DL 2228) ALBUMIN (test code = 2201) 4.9 G/DL CALC GLOBULIN (test code = 3.4 G/DL 2240) CALC A/G RATIO (test code = 1.4 RATIO 2234) BILIRUBIN, TOTAL (test code = 0.2 MG/DL 2206) ALKALINE PHOSPHATASE (test 129 U/L code = 2204) AST (test code = 2218) 42 U/L ALT (test code = 2219) 37 U/L MICROALBUMIN/CREATININE, RANDOM AND [id number] 00:00:00 Test Item Value Reference Range Interpretation Comments CREATININE, URINE, CONC. (test 176.5 MG/DL code = 2072) MICROALBUMIN, RANDOM (test code = 8.5 MG/DL 56081) CALC MICROALB/CREAT RND (test 48 MG/G code = 99927) COMPREHENSIVE METABOLIC [id number] 00:00:00 Test Item Value Reference Range Interpretation Comments GLUCOSE (test code = 2217) 112 MG/DL BUN (test code = 2208) 24 MG/DL CREATININE (test code = 2214) 0.83 MG/DL eGFR AMER. (test code 93 ML/MIN/1.73 = 19370) eGFR NON- AMER. (test 81 ML/MIN/1.73 code = 14318) CALC BUN/CREAT (test code = 29 RATIO 2235) SODIUM (test code = 2231) 141 MEQ/L POTASSIUM (test code = 2228) 4.5 MEQ/L CHLORIDE (test code = 2215) 97 MEQ/L CARBON DIOXIDE (test code = 25 MEQ/L 2205) CALCIUM (test code = 2209) 10.2 MG/DL PROTEIN, TOTAL (test code = 8.3 G/DL 2228) ALBUMIN (test code = 2201) 4.9 G/DL CALC GLOBULIN (test code = 3.4 G/DL 2240) CALC A/G RATIO (test code = 1.4 RATIO 4) BILIRUBIN, TOTAL (test code = 0.2 MG/DL 2206) ALKALINE PHOSPHATASE (test 129 U/L code = 2204) AST (test code = 2218) 42 U/L ALT (test code = 2219) 37 U/L COMPREHENSIVE METABOLIC [id number] 00:00:00 Test Item Value Reference Range Interpretation Comments GLUCOSE (test code = 2217) 112 MG/DL BUN (test code = 2208) 24 MG/DL CREATININE (test code = 2214) 0.83 MG/DL eGFR AMER. (test code 93 ML/MIN/1.73 = 30484) eGFR NON- AMER. (test 81 ML/MIN/1.73 code = 50345) CALC BUN/CREAT (test code = 29 RATIO 2235) SODIUM (test code = 2231) 141 MEQ/L POTASSIUM (test code = 2228) 4.5 MEQ/L CHLORIDE (test code = 2215) 97 MEQ/L CARBON DIOXIDE (test code = 25 MEQ/L 2205) CALCIUM (test code = 2209) 10.2 MG/DL PROTEIN, TOTAL (test code = 8.3 G/DL 2228) ALBUMIN (test code = 2201) 4.9 G/DL CALC GLOBULIN (test code = 3.4 G/DL 2239) CALC A/G RATIO (test code = 1.4 RATIO 2233) BILIRUBIN, TOTAL (test code = 0.2 MG/DL 2206) ALKALINE PHOSPHATASE (test 129 U/L code = 2204) AST (test code = 2218) 42 U/L ALT (test code = 2219) 37 U/L MICROALBUMIN/CREATININE, RANDOM AND [id number] 00:00:00 Test Item Value Reference Range Interpretation Comments CREATININE, URINE, CONC. (test 176.5 MG/DL code = 2072) MICROALBUMIN, RANDOM (test code = 8.5 MG/DL 92212) CALC MICROALB/CREAT RND (test 48 MG/G code = 95681) MICROALBUMIN/CREATININE, RANDOM AND [id number] 00:00:00 Test Item Value Reference Range Interpretation Comments CREATININE, URINE, CONC. (test 176.5 MG/DL code = 2072) MICROALBUMIN, RANDOM (test code = 8.5 MG/DL 40765) CALC MICROALB/CREAT RND (test 48 MG/G code = 66753) LIPID [id number] 00:00:00 Test Item Value Reference Range Interpretation Comments CHOLESTEROL (test code = 2210) 191 MG/DL TRIGLYCERIDES (test code = 2232) 696 MG/DL HDL CHOLESTEROL (test code = 30 MG/DL 0) CALC LDL CHOL (test code = 2237) NOTE MG/DL RISK RATIO LDL/HDL (test code = (NOTE) RATIO 2238) CBC W/AUTO [id number] 00:00:00 Test Item Value Reference Range Interpretation Comments WBC (test code = 1001) 7.2 K/UL RBC (test code = 1002) 4.66 M/UL HEMOGLOBIN (test code = 1003) 12.5 G/DL HEMATOCRIT (test code = 1004) 36.9 % MCV (test code = 1005) 79.2 fL MCH (test code = 1006) 26.8 PG MCHC (test code = 1007) 33.9 G/DL RDW (test code = 1038) 15.0 % NEUTROPHILS (test code = 1008) 69.8 % LYMPHOCYTES (test code = 1010) 20.7 % MONOCYTES (test code = 1011) 6.0 % EOSINOPHILS (test code = 1012) 3.2 % BASOPHILS (test code = 1013) 0.3 % PLATELET COUNT (test code = 1015) 277 K/UL CBC W/AUTO [id number] 00:00:00 Test Item Value Reference Range Interpretation Comments WBC (test code = 1001) 7.2 K/UL RBC (test code = 1002) 4.66 M/UL HEMOGLOBIN (test code = 1003) 12.5 G/DL HEMATOCRIT (test code = 1004) 36.9 % MCV (test code = 1005) 79.2 fL MCH (test code = 1006) 26.8 PG MCHC (test code = 1007) 33.9 G/DL RDW (test code = 1038) 15.0 % NEUTROPHILS (test code = 1008) 69.8 % LYMPHOCYTES (test code = 1010) 20.7 % MONOCYTES (test code = 1011) 6.0 % EOSINOPHILS (test code = 1012) 3.2 % BASOPHILS (test code = 1013) 0.3 % PLATELET COUNT (test code = 1015) 277 K/UL CBC W/AUTO [id number] 00:00:00 Test Item Value Reference Range Interpretation Comments WBC (test code = 1001) 7.2 K/UL RBC (test code = 1002) 4.66 M/UL HEMOGLOBIN (test code = 1003) 12.5 G/DL HEMATOCRIT (test code = 1004) 36.9 % MCV (test code = 1005) 79.2 fL MCH (test code = 1006) 26.8 PG MCHC (test code = 1007) 33.9 G/DL RDW (test code = 1038) 15.0 % NEUTROPHILS (test code = 1008) 69.8 % LYMPHOCYTES (test code = 1010) 20.7 % MONOCYTES (test code = 1011) 6.0 % EOSINOPHILS (test code = 1012) 3.2 % BASOPHILS (test code = 1013) 0.3 % PLATELET COUNT (test code = 1015) 277 K/UL HEMOGLOBIN [id number] 00:00:00 Test Item Value Reference Range Interpretation Comments HEMOGLOBIN A1c (test code = 49283) 5.4 % HEMOGLOBIN [id number] 00:00:00 Test Item Value Reference Range Interpretation Comments HEMOGLOBIN A1c (test code = 57758) 5.4 % HEMOGLOBIN [id number] 00:00:00 Test Item Value Reference Range Interpretation Comments HEMOGLOBIN A1c (test code = 01505) 5.4 % MICROALBUMIN/CREATININE, RANDOM AND [id number] 00:00:00 Test Item Value Reference Range Interpretation Comments CREATININE, URINE, CONC. (test 227.2 MG/DL code = 2072) MICROALBUMIN, RANDOM (test code = 7.4 MG/DL 26883) CALC MICROALB/CREAT RND (test 33 MG/G code = 66060) MICROALBUMIN/CREATININE, RANDOM AND [id number] 00:00:00 Test Item Value Reference Range Interpretation Comments CREATININE, URINE, CONC. (test 227.2 MG/DL code = 2072) MICROALBUMIN, RANDOM (test code = 7.4 MG/DL 01445) CALC MICROALB/CREAT RND (test 33 MG/G code = 52992) COMPREHENSIVE METABOLIC [id number] 00:00:00 Test Item Value Reference Range Interpretation Comments GLUCOSE (test code = 2217) 103 MG/DL BUN (test code = 2208) 14 MG/DL CREATININE (test code = 2214) 0.69 MG/DL eGFR AMER. (test code 115 ML/MIN/1.73 = 88519) eGFR NON- AMER. (test 99 ML/MIN/1.73 code = 51594) CALC BUN/CREAT (test code = 20 RATIO 2235) SODIUM (test code = 2231) 142 MEQ/L POTASSIUM (test code = 2228) 4.0 MEQ/L CHLORIDE (test code = 2215) 101 MEQ/L CARBON DIOXIDE (test code = 24 MEQ/L 220) CALCIUM (test code = 2209) 9.5 MG/DL PROTEIN, TOTAL (test code = 7.2 G/DL 2228) ALBUMIN (test code = 2201) 4.5 G/DL CALC GLOBULIN (test code = 2.7 G/DL 224) CALC A/G RATIO (test code = 1.7 RATIO 2234) BILIRUBIN, TOTAL (test code = 0.1 MG/DL 2206) ALKALINE PHOSPHATASE (test 108 U/L code = 2204) AST (test code = 2218) 22 U/L ALT (test code = 2219) 30 U/L COMPREHENSIVE METABOLIC [id number] 00:00:00 Test Item Value Reference Range Interpretation Comments GLUCOSE (test code = 2217) 103 MG/DL BUN (test code = 2208) 14 MG/DL CREATININE (test code = 2214) 0.69 MG/DL eGFR AMER. (test code 115 ML/MIN/1.73 = 18652) eGFR NON- AMER. (test 99 ML/MIN/1.73 code = 97217) CALC BUN/CREAT (test code = 20 RATIO 2235) SODIUM (test code = 2231) 142 MEQ/L POTASSIUM (test code = 2228) 4.0 MEQ/L CHLORIDE (test code = 2215) 101 MEQ/L CARBON DIOXIDE (test code = 24 MEQ/L 2205) CALCIUM (test code = 2209) 9.5 MG/DL PROTEIN, TOTAL (test code = 7.2 G/DL 2228) ALBUMIN (test code = 2201) 4.5 G/DL CALC GLOBULIN (test code = 2.7 G/DL 2240) CALC A/G RATIO (test code = 1.7 RATIO 4) BILIRUBIN, TOTAL (test code = 0.1 MG/DL 2206) ALKALINE PHOSPHATASE (test 108 U/L code = 2204) AST (test code = 2218) 22 U/L ALT (test code = 2219) 30 U/L LIPID [id number] 00:00:00 Test Item Value Reference Range Interpretation Comments CHOLESTEROL (test code = 2210) 191 MG/DL TRIGLYCERIDES (test code = 2232) 696 MG/DL HDL CHOLESTEROL (test code = 30 MG/DL 2220) CALC LDL CHOL (test code = 2237) NOTE MG/DL RISK RATIO LDL/HDL (test code = (NOTE) RATIO 2238) LIPID [id number] 00:00:00 Test Item Value Reference Range Interpretation Comments CHOLESTEROL (test code = 2210) 191 MG/DL TRIGLYCERIDES (test code = 2232) 696 MG/DL HDL CHOLESTEROL (test code = 30 MG/DL 2220) CALC LDL CHOL (test code = 2237) NOTE MG/DL RISK RATIO LDL/HDL (test code = (NOTE) RATIO 2238) CBC W/AUTO [id number] 00:00:00 Test Item Value Reference Range Interpretation Comments WBC (test code = 1001) 7.2 K/UL RBC (test code = 1002) 4.66 M/UL HEMOGLOBIN (test code = 1003) 12.5 G/DL HEMATOCRIT (test code = 1004) 36.9 % MCV (test code = 1005) 79.2 fL MCH (test code = 1006) 26.8 PG MCHC (test code = 1007) 33.9 G/DL RDW (test code = 1038) 15.0 % NEUTROPHILS (test code = 1008) 69.8 % LYMPHOCYTES (test code = 1010) 20.7 % MONOCYTES (test code = 1011) 6.0 % EOSINOPHILS (test code = 1012) 3.2 % BASOPHILS (test code = 1013) 0.3 % PLATELET COUNT (test code = 1015) 277 K/UL CBC W/AUTO [id number] 00:00:00 Test Item Value Reference Range Interpretation Comments WBC (test code = 1001) 7.2 K/UL RBC (test code = 1002) 4.66 M/UL HEMOGLOBIN (test code = 1003) 12.5 G/DL HEMATOCRIT (test code = 1004) 36.9 % MCV (test code = 1005) 79.2 fL MCH (test code = 1006) 26.8 PG MCHC (test code = 1007) 33.9 G/DL RDW (test code = 1038) 15.0 % NEUTROPHILS (test code = 1008) 69.8 % LYMPHOCYTES (test code = 1010) 20.7 % MONOCYTES (test code = 1011) 6.0 % EOSINOPHILS (test code = 1012) 3.2 % BASOPHILS (test code = 1013) 0.3 % PLATELET COUNT (test code = 1015) 277 K/UL CBC W/AUTO [id number] 00:00:00 Test Item Value Reference Range Interpretation Comments WBC (test code = 1001) 7.2 K/UL RBC (test code = 1002) 4.66 M/UL HEMOGLOBIN (test code = 1003) 12.5 G/DL HEMATOCRIT (test code = 1004) 36.9 % MCV (test code = 1005) 79.2 fL MCH (test code = 1006) 26.8 PG MCHC (test code = 1007) 33.9 G/DL RDW (test code = 1038) 15.0 % NEUTROPHILS (test code = 1008) 69.8 % LYMPHOCYTES (test code = 1010) 20.7 % MONOCYTES (test code = 1011) 6.0 % EOSINOPHILS (test code = 1012) 3.2 % BASOPHILS (test code = 1013) 0.3 % PLATELET COUNT (test code = 1015) 277 K/UL HEMOGLOBIN [id number] 00:00:00 Test Item Value Reference Range Interpretation Comments HEMOGLOBIN A1c (test code = 60713) 5.4 % HEMOGLOBIN [id number] 00:00:00 Test Item Value Reference Range Interpretation Comments HEMOGLOBIN A1c (test code = 90786) 5.4 % HEMOGLOBIN [id number] 00:00:00 Test Item Value Reference Range Interpretation Comments HEMOGLOBIN A1c (test code = 37252) 5.4 % MICROALBUMIN/CREATININE, RANDOM AND [id number] 00:00:00 Test Item Value Reference Range Interpretation Comments CREATININE, URINE, CONC. (test 227.2 MG/DL code = 2072) MICROALBUMIN, RANDOM (test code = 7.4 MG/DL 80589) CALC MICROALB/CREAT RND (test 33 MG/G code = 51199) MICROALBUMIN/CREATININE, RANDOM AND [id number] 00:00:00 Test Item Value Reference Range Interpretation Comments CREATININE, URINE, CONC. (test 227.2 MG/DL code = 2072) MICROALBUMIN, RANDOM (test code = 7.4 MG/DL 10652) CALC MICROALB/CREAT RND (test 33 MG/G code = 71510) COMPREHENSIVE METABOLIC [id number] 00:00:00 Test Item Value Reference Range Interpretation Comments GLUCOSE (test code = 2217) 103 MG/DL BUN (test code = 2208) 14 MG/DL CREATININE (test code = 2214) 0.69 MG/DL eGFR AMER. (test code 115 ML/MIN/1.73 = 35347) eGFR NON- AMER. (test 99 ML/MIN/1.73 code = 33153) CALC BUN/CREAT (test code = 20 RATIO 2235) SODIUM (test code = 2231) 142 MEQ/L POTASSIUM (test code = 2228) 4.0 MEQ/L CHLORIDE (test code = 2215) 101 MEQ/L CARBON DIOXIDE (test code = 24 MEQ/L 2205) CALCIUM (test code = 2209) 9.5 MG/DL PROTEIN, TOTAL (test code = 7.2 G/DL 2228) ALBUMIN (test code = 2201) 4.5 G/DL CALC GLOBULIN (test code = 2.7 G/DL 2240) CALC A/G RATIO (test code = 1.7 RATIO 2234) BILIRUBIN, TOTAL (test code = 0.1 MG/DL 2206) ALKALINE PHOSPHATASE (test 108 U/L code = 2204) AST (test code = 2218) 22 U/L ALT (test code = 2219) 30 U/L COMPREHENSIVE METABOLIC [id number] 00:00:00 Test Item Value Reference Range Interpretation Comments GLUCOSE (test code = 2217) 103 MG/DL BUN (test code = 2208) 14 MG/DL CREATININE (test code = 2214) 0.69 MG/DL eGFR AMER. (test code 115 ML/MIN/1.73 = 90183) eGFR NON- AMER. (test 99 ML/MIN/1.73 code = 14039) CALC BUN/CREAT (test code = 20 RATIO 2235) SODIUM (test code = 2231) 142 MEQ/L POTASSIUM (test code = 2228) 4.0 MEQ/L CHLORIDE (test code = 2215) 101 MEQ/L CARBON DIOXIDE (test code = 24 MEQ/L 2205) CALCIUM (test code = 2209) 9.5 MG/DL PROTEIN, TOTAL (test code = 7.2 G/DL 2228) ALBUMIN (test code = 2201) 4.5 G/DL CALC GLOBULIN (test code = 2.7 G/DL 2240) CALC A/G RATIO (test code = 1.7 RATIO 2234) BILIRUBIN, TOTAL (test code = 0.1 MG/DL 2206) ALKALINE PHOSPHATASE (test 108 U/L code = 2204) AST (test code = 2218) 22 U/L ALT (test code = 2219) 30 U/L LIPID [id number] 00:00:00 Test Item Value Reference Range Interpretation Comments CHOLESTEROL (test code = 2210) 191 MG/DL TRIGLYCERIDES (test code = 2232) 696 MG/DL HDL CHOLESTEROL (test code = 30 MG/DL 2220) CALC LDL CHOL (test code = 2237) NOTE MG/DL RISK RATIO LDL/HDL (test code = (NOTE) RATIO 2238) LIPID [id number] 00:00:00 Test Item Value Reference Range Interpretation Comments CHOLESTEROL (test code = 2210) 191 MG/DL TRIGLYCERIDES (test code = 2232) 696 MG/DL HDL CHOLESTEROL (test code = 30 MG/DL 2220) CALC LDL CHOL (test code = 2237) NOTE MG/DL RISK RATIO LDL/HDL (test code = (NOTE) RATIO 2238) CBC W/AUTO [id number] 00:00:00 Test Item Value Reference Range Interpretation Comments WBC (test code = 1001) 7.2 K/UL RBC (test code = 1002) 4.66 M/UL HEMOGLOBIN (test code = 1003) 12.5 G/DL HEMATOCRIT (test code = 1004) 36.9 % MCV (test code = 1005) 79.2 fL MCH (test code = 1006) 26.8 PG MCHC (test code = 1007) 33.9 G/DL RDW (test code = 1038) 15.0 % NEUTROPHILS (test code = 1008) 69.8 % LYMPHOCYTES (test code = 1010) 20.7 % MONOCYTES (test code = 1011) 6.0 % EOSINOPHILS (test code = 1012) 3.2 % BASOPHILS (test code = 1013) 0.3 % PLATELET COUNT (test code = 1015) 277 K/UL CBC W/AUTO [id number] 00:00:00 Test Item Value Reference Range Interpretation Comments WBC (test code = 1001) 7.2 K/UL RBC (test code = 1002) 4.66 M/UL HEMOGLOBIN (test code = 1003) 12.5 G/DL HEMATOCRIT (test code = 1004) 36.9 % MCV (test code = 1005) 79.2 fL MCH (test code = 1006) 26.8 PG MCHC (test code = 1007) 33.9 G/DL RDW (test code = 1038) 15.0 % NEUTROPHILS (test code = 1008) 69.8 % LYMPHOCYTES (test code = 1010) 20.7 % MONOCYTES (test code = 1011) 6.0 % EOSINOPHILS (test code = 1012) 3.2 % BASOPHILS (test code = 1013) 0.3 % PLATELET COUNT (test code = 1015) 277 K/UL CBC W/AUTO [id number] 00:00:00 Test Item Value Reference Range Interpretation Comments WBC (test code = 1001) 7.2 K/UL RBC (test code = 1002) 4.66 M/UL HEMOGLOBIN (test code = 1003) 12.5 G/DL HEMATOCRIT (test code = 1004) 36.9 % MCV (test code = 1005) 79.2 fL MCH (test code = 1006) 26.8 PG MCHC (test code = 1007) 33.9 G/DL RDW (test code = 1038) 15.0 % NEUTROPHILS (test code = 1008) 69.8 % LYMPHOCYTES (test code = 1010) 20.7 % MONOCYTES (test code = 1011) 6.0 % EOSINOPHILS (test code = 1012) 3.2 % BASOPHILS (test code = 1013) 0.3 % PLATELET COUNT (test code = 1015) 277 K/UL HEMOGLOBIN [id number] 00:00:00 Test Item Value Reference Range Interpretation Comments HEMOGLOBIN A1c (test code = 37867) 5.4 % HEMOGLOBIN [id number] 00:00:00 Test Item Value Reference Range Interpretation Comments HEMOGLOBIN A1c (test code = 54299) 5.4 % HEMOGLOBIN [id number] 00:00:00 Test Item Value Reference Range Interpretation Comments HEMOGLOBIN A1c (test code = 91786) 5.4 % MICROALBUMIN/CREATININE, RANDOM AND [id number] 00:00:00 Test Item Value Reference Range Interpretation Comments CREATININE, URINE, CONC. (test 227.2 MG/DL code = 2072) MICROALBUMIN, RANDOM (test code = 7.4 MG/DL 78086) CALC MICROALB/CREAT RND (test 33 MG/G code = 97684) MICROALBUMIN/CREATININE, RANDOM AND [id number] 00:00:00 Test Item Value Reference Range Interpretation Comments CREATININE, URINE, CONC. (test 227.2 MG/DL code = 2072) MICROALBUMIN, RANDOM (test code = 7.4 MG/DL 73807) CALC MICROALB/CREAT RND (test 33 MG/G code = 70629) COMPREHENSIVE METABOLIC [id number] 00:00:00 Test Item Value Reference Range Interpretation Comments GLUCOSE (test code = 2217) 103 MG/DL BUN (test code = 2208) 14 MG/DL CREATININE (test code = 2214) 0.69 MG/DL eGFR AMER. (test code 115 ML/MIN/1.73 = 57075) eGFR NON- AMER. (test 99 ML/MIN/1.73 code = 30197) CALC BUN/CREAT (test code = 20 RATIO 2235) SODIUM (test code = 2231) 142 MEQ/L POTASSIUM (test code = 2228) 4.0 MEQ/L CHLORIDE (test code = 2215) 101 MEQ/L CARBON DIOXIDE (test code = 24 MEQ/L 2205) CALCIUM (test code = 2209) 9.5 MG/DL PROTEIN, TOTAL (test code = 7.2 G/DL 2228) ALBUMIN (test code = 2201) 4.5 G/DL CALC GLOBULIN (test code = 2.7 G/DL 2239) CALC A/G RATIO (test code = 1.7 RATIO 2234) BILIRUBIN, TOTAL (test code = 0.1 MG/DL 2206) ALKALINE PHOSPHATASE (test 108 U/L code = 2204) AST (test code = 2218) 22 U/L ALT (test code = 2219) 30 U/L LIPID [id number] 00:00:00 Test Item Value Reference Range Interpretation Comments CHOLESTEROL (test code = 2210) 191 MG/DL TRIGLYCERIDES (test code = 2232) 696 MG/DL HDL CHOLESTEROL (test code = 30 MG/DL 0) CALC LDL CHOL (test code = 2237) NOTE MG/DL RISK RATIO LDL/HDL (test code = (NOTE) RATIO 2238) CBC W/AUTO [id number] 00:00:00 Test Item Value Reference Range Interpretation Comments WBC (test code = 1001) 7.2 K/UL RBC (test code = 1002) 4.66 M/UL HEMOGLOBIN (test code = 1003) 12.5 G/DL HEMATOCRIT (test code = 1004) 36.9 % MCV (test code = 1005) 79.2 fL MCH (test code = 1006) 26.8 PG MCHC (test code = 1007) 33.9 G/DL RDW (test code = 1038) 15.0 % NEUTROPHILS (test code = 1008) 69.8 % LYMPHOCYTES (test code = 1010) 20.7 % MONOCYTES (test code = 1011) 6.0 % EOSINOPHILS (test code = 1012) 3.2 % BASOPHILS (test code = 1013) 0.3 % PLATELET COUNT (test code = 1015) 277 K/UL CBC W/AUTO [id number] 00:00:00 Test Item Value Reference Range Interpretation Comments WBC (test code = 1001) 7.2 K/UL RBC (test code = 1002) 4.66 M/UL HEMOGLOBIN (test code = 1003) 12.5 G/DL HEMATOCRIT (test code = 1004) 36.9 % MCV (test code = 1005) 79.2 fL MCH (test code = 1006) 26.8 PG MCHC (test code = 1007) 33.9 G/DL RDW (test code = 1038) 15.0 % NEUTROPHILS (test code = 1008) 69.8 % LYMPHOCYTES (test code = 1010) 20.7 % MONOCYTES (test code = 1011) 6.0 % EOSINOPHILS (test code = 1012) 3.2 % BASOPHILS (test code = 1013) 0.3 % PLATELET COUNT (test code = 1015) 277 K/UL HEMOGLOBIN [id number] 00:00:00 Test Item Value Reference Range Interpretation Comments HEMOGLOBIN A1c (test code = 53727) 5.4 % HEMOGLOBIN [id number] 00:00:00 Test Item Value Reference Range Interpretation Comments HEMOGLOBIN A1c (test code = 25389) 5.4 % MICROALBUMIN/CREATININE, RANDOM AND [id number] 00:00:00 Test Item Value Reference Range Interpretation Comments CREATININE, URINE, CONC. (test 227.2 MG/DL code = 2072) MICROALBUMIN, RANDOM (test code = 7.4 MG/DL 74588) CALC MICROALB/CREAT RND (test 33 MG/G code = 58899) COMPREHENSIVE METABOLIC [id number] 00:00:00 Test Item Value Reference Range Interpretation Comments GLUCOSE (test code = 2217) 103 MG/DL BUN (test code = 2208) 14 MG/DL CREATININE (test code = 2214) 0.69 MG/DL eGFR AMER. (test code 115 ML/MIN/1.73 = 92839) eGFR NON- AMER. (test 99 ML/MIN/1.73 code = 20600) CALC BUN/CREAT (test code = 20 RATIO 2235) SODIUM (test code = 2231) 142 MEQ/L POTASSIUM (test code = 2228) 4.0 MEQ/L CHLORIDE (test code = 2215) 101 MEQ/L CARBON DIOXIDE (test code = 24 MEQ/L 220) CALCIUM (test code = 2209) 9.5 MG/DL PROTEIN, TOTAL (test code = 7.2 G/DL 2228) ALBUMIN (test code = 2201) 4.5 G/DL CALC GLOBULIN (test code = 2.7 G/DL 2240) CALC A/G RATIO (test code = 1.7 RATIO 2234) BILIRUBIN, TOTAL (test code = 0.1 MG/DL 2206) ALKALINE PHOSPHATASE (test 108 U/L code = 2204) AST (test code = 2218) 22 U/L ALT (test code = 2219) 30 U/L COMPREHENSIVE METABOLIC [id number] 00:00:00 Test Item Value Reference Range Interpretation Comments GLUCOSE (test code = 2217) 103 MG/DL BUN (test code = 2208) 14 MG/DL CREATININE (test code = 2214) 0.69 MG/DL eGFR AMER. (test code 115 ML/MIN/1.73 = 62849) eGFR NON- AMER. (test 99 ML/MIN/1.73 code = 73903) CALC BUN/CREAT (test code = 20 RATIO 2235) SODIUM (test code = 2231) 142 MEQ/L POTASSIUM (test code = 2228) 4.0 MEQ/L CHLORIDE (test code = 2215) 101 MEQ/L CARBON DIOXIDE (test code = 24 MEQ/L 220) CALCIUM (test code = 2209) 9.5 MG/DL PROTEIN, TOTAL (test code = 7.2 G/DL 2228) ALBUMIN (test code = 2201) 4.5 G/DL CALC GLOBULIN (test code = 2.7 G/DL 2240) CALC A/G RATIO (test code = 1.7 RATIO 2234) BILIRUBIN, TOTAL (test code = 0.1 MG/DL 2207) ALKALINE PHOSPHATASE (test 108 U/L code = 2204) AST (test code = 2218) 22 U/L ALT (test code = 2219) 30 U/L LIPID [id number] 00:00:00 Test Item Value Reference Range Interpretation Comments CHOLESTEROL (test code = 2210) 191 MG/DL TRIGLYCERIDES (test code = 2232) 696 MG/DL HDL CHOLESTEROL (test code = 30 MG/DL 2220) CALC LDL CHOL (test code = 2237) NOTE MG/DL RISK RATIO LDL/HDL (test code = (NOTE) RATIO 2238) LIPID [id number] 00:00:00 Test Item Value Reference Range Interpretation Comments CHOLESTEROL (test code = 2210) 186 MG/DL TRIGLYCERIDES (test code = 2232) 228 MG/DL HDL CHOLESTEROL (test code = 2220) 47 MG/DL CALC LDL CHOL (test code = 2237) 93 MG/DL RISK RATIO LDL/HDL (test code = 1.99 RATIO 2238) CBC W/AUTO [id number] 00:00:00 Test Item Value Reference Range Interpretation Comments WBC (test code = 1001) 6.6 K/UL RBC (test code = 1002) 4.97 M/UL HEMOGLOBIN (test code = 1003) 13.0 G/DL HEMATOCRIT (test code = 1004) 39.8 % MCV (test code = 1005) 80.1 fL MCH (test code = 1006) 26.2 PG MCHC (test code = 1007) 32.7 G/DL RDW (test code = 1038) 14.3 % NEUTROPHILS (test code = 1008) 62.6 % LYMPHOCYTES (test code = 1010) 27.5 % MONOCYTES (test code = 1011) 5.3 % EOSINOPHILS (test code = 1012) 4.1 % BASOPHILS (test code = 1013) 0.5 % PLATELET COUNT (test code = 1015) 271 K/UL CBC W/AUTO [id number] 00:00:00 Test Item Value Reference Range Interpretation Comments WBC (test code = 1001) 6.6 K/UL RBC (test code = 1002) 4.97 M/UL HEMOGLOBIN (test code = 1003) 13.0 G/DL HEMATOCRIT (test code = 1004) 39.8 % MCV (test code = 1005) 80.1 fL MCH (test code = 1006) 26.2 PG MCHC (test code = 1007) 32.7 G/DL RDW (test code = 1038) 14.3 % NEUTROPHILS (test code = 1008) 62.6 % LYMPHOCYTES (test code = 1010) 27.5 % MONOCYTES (test code = 1011) 5.3 % EOSINOPHILS (test code = 1012) 4.1 % BASOPHILS (test code = 1013) 0.5 % PLATELET COUNT (test code = 1015) 271 K/UL CBC W/AUTO [id number] 00:00:00 Test Item Value Reference Range Interpretation Comments WBC (test code = 1001) 6.6 K/UL RBC (test code = 1002) 4.97 M/UL HEMOGLOBIN (test code = 1003) 13.0 G/DL HEMATOCRIT (test code = 1004) 39.8 % MCV (test code = 1005) 80.1 fL MCH (test code = 1006) 26.2 PG MCHC (test code = 1007) 32.7 G/DL RDW (test code = 1038) 14.3 % NEUTROPHILS (test code = 1008) 62.6 % LYMPHOCYTES (test code = 1010) 27.5 % MONOCYTES (test code = 1011) 5.3 % EOSINOPHILS (test code = 1012) 4.1 % BASOPHILS (test code = 1013) 0.5 % PLATELET COUNT (test code = 1015) 271 K/UL HEMOGLOBIN [id number] 00:00:00 Test Item Value Reference Range Interpretation Comments HEMOGLOBIN A1c (test code = 20696) 5.7 % HEMOGLOBIN [id number] 00:00:00 Test Item Value Reference Range Interpretation Comments HEMOGLOBIN A1c (test code = 78467) 5.7 % HEMOGLOBIN [id number] 00:00:00 Test Item Value Reference Range Interpretation Comments HEMOGLOBIN A1c (test code = 04666) 5.7 % [id number] 00:00:00 Test Item Value Reference Range Interpretation Comments TSH (test code = 2821) 1.320 UIU/ML [id number] 00:00:00 Test Item Value Reference Range Interpretation Comments TSH (test code = 2821) 1.320 UIU/ML [id number] 00:00:00 Test Item Value Reference Range Interpretation Comments TSH (test code = 2821) 1.320 UIU/ML COMPREHENSIVE METABOLIC [id number] 00:00:00 Test Item Value Reference Range Interpretation Comments GLUCOSE (test code = 2217) 41 MG/DL BUN (test code = 2208) 19 MG/DL CREATININE (test code = 2214) 0.61 MG/DL eGFR AMER. (test code 120 ML/MIN/1.73 = 08538) eGFR NON- AMER. (test 104 ML/MIN/1.73 code = 30565) CALC BUN/CREAT (test code = 31 RATIO 2235) SODIUM (test code = 2231) 144 MEQ/L POTASSIUM (test code = 2228) 3.4 MEQ/L CHLORIDE (test code = 2215) 98 MEQ/L CARBON DIOXIDE (test code = 27 MEQ/L 2205) CALCIUM (test code = 2209) 9.4 MG/DL PROTEIN, TOTAL (test code = 7.8 G/DL 2228) ALBUMIN (test code = 2201) 4.8 G/DL CALC GLOBULIN (test code = 3.0 G/DL 2239) CALC A/G RATIO (test code = 1.6 RATIO 2234) BILIRUBIN, TOTAL (test code = 0.2 MG/DL 2206) ALKALINE PHOSPHATASE (test 115 U/L code = 2204) AST (test code = 2218) 26 U/L ALT (test code = 2219) 29 U/L COMPREHENSIVE METABOLIC [id number] 00:00:00 Test Item Value Reference Range Interpretation Comments GLUCOSE (test code = 2217) 41 MG/DL BUN (test code = 2208) 19 MG/DL CREATININE (test code = 2214) 0.61 MG/DL eGFR AMER. (test code 120 ML/MIN/1.73 = 32037) eGFR NON- AMER. (test 104 ML/MIN/1.73 code = 21415) CALC BUN/CREAT (test code = 31 RATIO 2235) SODIUM (test code = 2231) 144 MEQ/L POTASSIUM (test code = 2228) 3.4 MEQ/L CHLORIDE (test code = 2215) 98 MEQ/L CARBON DIOXIDE (test code = 27 MEQ/L 220) CALCIUM (test code = 2209) 9.4 MG/DL PROTEIN, TOTAL (test code = 7.8 G/DL 2229) ALBUMIN (test code = 2201) 4.8 G/DL CALC GLOBULIN (test code = 3.0 G/DL 2240) CALC A/G RATIO (test code = 1.6 RATIO 2234) BILIRUBIN, TOTAL (test code = 0.2 MG/DL 2206) ALKALINE PHOSPHATASE (test 115 U/L code = 2204) AST (test code = 2218) 26 U/L ALT (test code = 2219) 29 U/L MICROALBUMIN, [id number] 00:00:00 Test Item Value Reference Range Interpretation Comments MICROALBUMIN, RANDOM (test code = 4.1 MG/DL 56762) MICROALBUMIN, [id number] 00:00:00 Test Item Value Reference Range Interpretation Comments MICROALBUMIN, RANDOM (test code = 4.1 MG/DL 86972) LIPID [id number] 00:00:00 Test Item Value Reference Range Interpretation Comments CHOLESTEROL (test code = 2210) 186 MG/DL TRIGLYCERIDES (test code = 2232) 228 MG/DL HDL CHOLESTEROL (test code = 2220) 47 MG/DL CALC LDL CHOL (test code = 2237) 93 MG/DL RISK RATIO LDL/HDL (test code = 1.99 RATIO 2238) LIPID [id number] 00:00:00 Test Item Value Reference Range Interpretation Comments CHOLESTEROL (test code = 2210) 186 MG/DL TRIGLYCERIDES (test code = 2232) 228 MG/DL HDL CHOLESTEROL (test code = 2220) 47 MG/DL CALC LDL CHOL (test code = 2237) 93 MG/DL RISK RATIO LDL/HDL (test code = 1.99 RATIO 2238) CBC W/AUTO [id number] 00:00:00 Test Item Value Reference Range Interpretation Comments WBC (test code = 1001) 6.6 K/UL RBC (test code = 1002) 4.97 M/UL HEMOGLOBIN (test code = 1003) 13.0 G/DL HEMATOCRIT (test code = 1004) 39.8 % MCV (test code = 1005) 80.1 fL MCH (test code = 1006) 26.2 PG MCHC (test code = 1007) 32.7 G/DL RDW (test code = 1038) 14.3 % NEUTROPHILS (test code = 1008) 62.6 % LYMPHOCYTES (test code = 1010) 27.5 % MONOCYTES (test code = 1011) 5.3 % EOSINOPHILS (test code = 1012) 4.1 % BASOPHILS (test code = 1013) 0.5 % PLATELET COUNT (test code = 1015) 271 K/UL CBC W/AUTO [id number] 00:00:00 Test Item Value Reference Range Interpretation Comments WBC (test code = 1001) 6.6 K/UL RBC (test code = 1002) 4.97 M/UL HEMOGLOBIN (test code = 1003) 13.0 G/DL HEMATOCRIT (test code = 1004) 39.8 % MCV (test code = 1005) 80.1 fL MCH (test code = 1006) 26.2 PG MCHC (test code = 1007) 32.7 G/DL RDW (test code = 1038) 14.3 % NEUTROPHILS (test code = 1008) 62.6 % LYMPHOCYTES (test code = 1010) 27.5 % MONOCYTES (test code = 1011) 5.3 % EOSINOPHILS (test code = 1012) 4.1 % BASOPHILS (test code = 1013) 0.5 % PLATELET COUNT (test code = 1015) 271 K/UL CBC W/AUTO [id number] 00:00:00 Test Item Value Reference Range Interpretation Comments WBC (test code = 1001) 6.6 K/UL RBC (test code = 1002) 4.97 M/UL HEMOGLOBIN (test code = 1003) 13.0 G/DL HEMATOCRIT (test code = 1004) 39.8 % MCV (test code = 1005) 80.1 fL MCH (test code = 1006) 26.2 PG MCHC (test code = 1007) 32.7 G/DL RDW (test code = 1038) 14.3 % NEUTROPHILS (test code = 1008) 62.6 % LYMPHOCYTES (test code = 1010) 27.5 % MONOCYTES (test code = 1011) 5.3 % EOSINOPHILS (test code = 1012) 4.1 % BASOPHILS (test code = 1013) 0.5 % PLATELET COUNT (test code = 1015) 271 K/UL HEMOGLOBIN [id number] 00:00:00 Test Item Value Reference Range Interpretation Comments HEMOGLOBIN A1c (test code = 09019) 5.7 % HEMOGLOBIN [id number] 00:00:00 Test Item Value Reference Range Interpretation Comments HEMOGLOBIN A1c (test code = 59902) 5.7 % HEMOGLOBIN [id number] 00:00:00 Test Item Value Reference Range Interpretation Comments HEMOGLOBIN A1c (test code = 19276) 5.7 % [id number] 00:00:00 Test Item Value Reference Range Interpretation Comments TSH (test code = 2821) 1.320 UIU/ML [id number] 00:00:00 Test Item Value Reference Range Interpretation Comments TSH (test code = 2821) 1.320 UIU/ML [id number] 00:00:00 Test Item Value Reference Range Interpretation Comments TSH (test code = 2821) 1.320 UIU/ML COMPREHENSIVE METABOLIC [id number] 00:00:00 Test Item Value Reference Range Interpretation Comments GLUCOSE (test code = 2217) 41 MG/DL BUN (test code = 2208) 19 MG/DL CREATININE (test code = 2214) 0.61 MG/DL eGFR AMER. (test code 120 ML/MIN/1.73 = 64718) eGFR NON- AMER. (test 104 ML/MIN/1.73 code = 29658) CALC BUN/CREAT (test code = 31 RATIO 2235) SODIUM (test code = 2231) 144 MEQ/L POTASSIUM (test code = 2228) 3.4 MEQ/L CHLORIDE (test code = 2215) 98 MEQ/L CARBON DIOXIDE (test code = 27 MEQ/L 2205) CALCIUM (test code = 2209) 9.4 MG/DL PROTEIN, TOTAL (test code = 7.8 G/DL 2228) ALBUMIN (test code = 2201) 4.8 G/DL CALC GLOBULIN (test code = 3.0 G/DL 2240) CALC A/G RATIO (test code = 1.6 RATIO 2234) BILIRUBIN, TOTAL (test code = 0.2 MG/DL 2206) ALKALINE PHOSPHATASE (test 115 U/L code = 2204) AST (test code = 2218) 26 U/L ALT (test code = 2219) 29 U/L COMPREHENSIVE METABOLIC [id number] 00:00:00 Test Item Value Reference Range Interpretation Comments GLUCOSE (test code = 2217) 41 MG/DL BUN (test code = 2208) 19 MG/DL CREATININE (test code = 2214) 0.61 MG/DL eGFR AMER. (test code 120 ML/MIN/1.73 = 88928) eGFR NON- AMER. (test 104 ML/MIN/1.73 code = 37736) CALC BUN/CREAT (test code = 31 RATIO 2235) SODIUM (test code = 2231) 144 MEQ/L POTASSIUM (test code = 2228) 3.4 MEQ/L CHLORIDE (test code = 2215) 98 MEQ/L CARBON DIOXIDE (test code = 27 MEQ/L 2205) CALCIUM (test code = 2209) 9.4 MG/DL PROTEIN, TOTAL (test code = 7.8 G/DL 2228) ALBUMIN (test code = 2201) 4.8 G/DL CALC GLOBULIN (test code = 3.0 G/DL 2239) CALC A/G RATIO (test code = 1.6 RATIO 2233) BILIRUBIN, TOTAL (test code = 0.2 MG/DL 2206) ALKALINE PHOSPHATASE (test 115 U/L code = 2204) AST (test code = 2218) 26 U/L ALT (test code = 2219) 29 U/L MICROALBUMIN, [id number] 00:00:00 Test Item Value Reference Range Interpretation Comments MICROALBUMIN, RANDOM (test code = 4.1 MG/DL 08371) MICROALBUMIN, [id number] 00:00:00 Test Item Value Reference Range Interpretation Comments MICROALBUMIN, RANDOM (test code = 4.1 MG/DL 53929) LIPID [id number] 00:00:00 Test Item Value Reference Range Interpretation Comments CHOLESTEROL (test code = 2210) 186 MG/DL TRIGLYCERIDES (test code = 2232) 228 MG/DL HDL CHOLESTEROL (test code = 2220) 47 MG/DL CALC LDL CHOL (test code = 2237) 93 MG/DL RISK RATIO LDL/HDL (test code = 1.99 RATIO 2238) LIPID [id number] 00:00:00 Test Item Value Reference Range Interpretation Comments CHOLESTEROL (test code = 2210) 186 MG/DL TRIGLYCERIDES (test code = 2232) 228 MG/DL HDL CHOLESTEROL (test code = 2220) 47 MG/DL CALC LDL CHOL (test code = 2237) 93 MG/DL RISK RATIO LDL/HDL (test code = 1.99 RATIO 2238) CBC W/AUTO [id number] 00:00:00 Test Item Value Reference Range Interpretation Comments WBC (test code = 1001) 6.6 K/UL RBC (test code = 1002) 4.97 M/UL HEMOGLOBIN (test code = 1003) 13.0 G/DL HEMATOCRIT (test code = 1004) 39.8 % MCV (test code = 1005) 80.1 fL MCH (test code = 1006) 26.2 PG MCHC (test code = 1007) 32.7 G/DL RDW (test code = 1038) 14.3 % NEUTROPHILS (test code = 1008) 62.6 % LYMPHOCYTES (test code = 1010) 27.5 % MONOCYTES (test code = 1011) 5.3 % EOSINOPHILS (test code = 1012) 4.1 % BASOPHILS (test code = 1013) 0.5 % PLATELET COUNT (test code = 1015) 271 K/UL CBC W/AUTO [id number] 00:00:00 Test Item Value Reference Range Interpretation Comments WBC (test code = 1001) 6.6 K/UL RBC (test code = 1002) 4.97 M/UL HEMOGLOBIN (test code = 1003) 13.0 G/DL HEMATOCRIT (test code = 1004) 39.8 % MCV (test code = 1005) 80.1 fL MCH (test code = 1006) 26.2 PG MCHC (test code = 1007) 32.7 G/DL RDW (test code = 1038) 14.3 % NEUTROPHILS (test code = 1008) 62.6 % LYMPHOCYTES (test code = 1010) 27.5 % MONOCYTES (test code = 1011) 5.3 % EOSINOPHILS (test code = 1012) 4.1 % BASOPHILS (test code = 1013) 0.5 % PLATELET COUNT (test code = 1015) 271 K/UL CBC W/AUTO [id number] 00:00:00 Test Item Value Reference Range Interpretation Comments WBC (test code = 1001) 6.6 K/UL RBC (test code = 1002) 4.97 M/UL HEMOGLOBIN (test code = 1003) 13.0 G/DL HEMATOCRIT (test code = 1004) 39.8 % MCV (test code = 1005) 80.1 fL MCH (test code = 1006) 26.2 PG MCHC (test code = 1007) 32.7 G/DL RDW (test code = 1038) 14.3 % NEUTROPHILS (test code = 1008) 62.6 % LYMPHOCYTES (test code = 1010) 27.5 % MONOCYTES (test code = 1011) 5.3 % EOSINOPHILS (test code = 1012) 4.1 % BASOPHILS (test code = 1013) 0.5 % PLATELET COUNT (test code = 1015) 271 K/UL HEMOGLOBIN [id number] 00:00:00 Test Item Value Reference Range Interpretation Comments HEMOGLOBIN A1c (test code = 91809) 5.7 % HEMOGLOBIN [id number] 00:00:00 Test Item Value Reference Range Interpretation Comments HEMOGLOBIN A1c (test code = 60993) 5.7 % HEMOGLOBIN [id number] 00:00:00 Test Item Value Reference Range Interpretation Comments HEMOGLOBIN A1c (test code = 59431) 5.7 % [id number] 00:00:00 Test Item Value Reference Range Interpretation Comments TSH (test code = 2821) 1.320 UIU/ML [id number] 00:00:00 Test Item Value Reference Range Interpretation Comments TSH (test code = 2821) 1.320 UIU/ML [id number] 00:00:00 Test Item Value Reference Range Interpretation Comments TSH (test code = 2821) 1.320 UIU/ML COMPREHENSIVE METABOLIC [id number] 00:00:00 Test Item Value Reference Range Interpretation Comments GLUCOSE (test code = 2217) 41 MG/DL BUN (test code = 2208) 19 MG/DL CREATININE (test code = 2214) 0.61 MG/DL eGFR AMER. (test code 120 ML/MIN/1.73 = 14342) eGFR NON- AMER. (test 104 ML/MIN/1.73 code = 82603) CALC BUN/CREAT (test code = 31 RATIO 2235) SODIUM (test code = 2231) 144 MEQ/L POTASSIUM (test code = 2228) 3.4 MEQ/L CHLORIDE (test code = 2215) 98 MEQ/L CARBON DIOXIDE (test code = 27 MEQ/L 2206) CALCIUM (test code = 2209) 9.4 MG/DL PROTEIN, TOTAL (test code = 7.8 G/DL 2228) ALBUMIN (test code = 2201) 4.8 G/DL CALC GLOBULIN (test code = 3.0 G/DL 2240) CALC A/G RATIO (test code = 1.6 RATIO 2234) BILIRUBIN, TOTAL (test code = 0.2 MG/DL 2206) ALKALINE PHOSPHATASE (test 115 U/L code = 2204) AST (test code = 2218) 26 U/L ALT (test code = 2219) 29 U/L MICROALBUMIN, [id number] 00:00:00 Test Item Value Reference Range Interpretation Comments MICROALBUMIN, RANDOM (test code = 4.1 MG/DL 00377) LIPID [id number] 00:00:00 Test Item Value Reference Range Interpretation Comments CHOLESTEROL (test code = 2210) 186 MG/DL TRIGLYCERIDES (test code = 2232) 228 MG/DL HDL CHOLESTEROL (test code = 2220) 47 MG/DL CALC LDL CHOL (test code = 2237) 93 MG/DL RISK RATIO LDL/HDL (test code = 1.99 RATIO 2238) CBC W/AUTO [id number] 00:00:00 Test Item Value Reference Range Interpretation Comments WBC (test code = 1001) 6.6 K/UL RBC (test code = 1002) 4.97 M/UL HEMOGLOBIN (test code = 1003) 13.0 G/DL HEMATOCRIT (test code = 1004) 39.8 % MCV (test code = 1005) 80.1 fL MCH (test code = 1006) 26.2 PG MCHC (test code = 1007) 32.7 G/DL RDW (test code = 1038) 14.3 % NEUTROPHILS (test code = 1008) 62.6 % LYMPHOCYTES (test code = 1010) 27.5 % MONOCYTES (test code = 1011) 5.3 % EOSINOPHILS (test code = 1012) 4.1 % BASOPHILS (test code = 1013) 0.5 % PLATELET COUNT (test code = 1015) 271 K/UL CBC W/AUTO [id number] 00:00:00 Test Item Value Reference Range Interpretation Comments WBC (test code = 1001) 6.6 K/UL RBC (test code = 1002) 4.97 M/UL HEMOGLOBIN (test code = 1003) 13.0 G/DL HEMATOCRIT (test code = 1004) 39.8 % MCV (test code = 1005) 80.1 fL MCH (test code = 1006) 26.2 PG MCHC (test code = 1007) 32.7 G/DL RDW (test code = 1038) 14.3 % NEUTROPHILS (test code = 1008) 62.6 % LYMPHOCYTES (test code = 1010) 27.5 % MONOCYTES (test code = 1011) 5.3 % EOSINOPHILS (test code = 1012) 4.1 % BASOPHILS (test code = 1013) 0.5 % PLATELET COUNT (test code = 1015) 271 K/UL HEMOGLOBIN [id number] 00:00:00 Test Item Value Reference Range Interpretation Comments HEMOGLOBIN A1c (test code = 95313) 5.7 % HEMOGLOBIN [id number] 00:00:00 Test Item Value Reference Range Interpretation Comments HEMOGLOBIN A1c (test code = 67092) 5.7 % [id number] 00:00:00 Test Item Value Reference Range Interpretation Comments TSH (test code = 2821) 1.320 UIU/ML [id number] 00:00:00 Test Item Value Reference Range Interpretation Comments TSH (test code = 2821) 1.320 UIU/ML COMPREHENSIVE METABOLIC [id number] 00:00:00 Test Item Value Reference Range Interpretation Comments GLUCOSE (test code = 2217) 41 MG/DL BUN (test code = 2208) 19 MG/DL CREATININE (test code = 2214) 0.61 MG/DL eGFR AMER. (test code 120 ML/MIN/1.73 = 99578) eGFR NON- AMER. (test 104 ML/MIN/1.73 code = 98936) CALC BUN/CREAT (test code = 31 RATIO 2235) SODIUM (test code = 2231) 144 MEQ/L POTASSIUM (test code = 2228) 3.4 MEQ/L CHLORIDE (test code = 2215) 98 MEQ/L CARBON DIOXIDE (test code = 27 MEQ/L 220) CALCIUM (test code = 2209) 9.4 MG/DL PROTEIN, TOTAL (test code = 7.8 G/DL 2228) ALBUMIN (test code = 2201) 4.8 G/DL CALC GLOBULIN (test code = 3.0 G/DL 2240) CALC A/G RATIO (test code = 1.6 RATIO 2234) BILIRUBIN, TOTAL (test code = 0.2 MG/DL 2207) ALKALINE PHOSPHATASE (test 115 U/L code = 2204) AST (test code = 2218) 26 U/L ALT (test code = 2219) 29 U/L COMPREHENSIVE METABOLIC [id number] 00:00:00 Test Item Value Reference Range Interpretation Comments GLUCOSE (test code = 2217) 41 MG/DL BUN (test code = 2208) 19 MG/DL CREATININE (test code = 2214) 0.61 MG/DL eGFR AMER. (test code 120 ML/MIN/1.73 = 85255) eGFR NON- AMER. (test 104 ML/MIN/1.73 code = 23037) CALC BUN/CREAT (test code = 31 RATIO 2235) SODIUM (test code = 2231) 144 MEQ/L POTASSIUM (test code = 2228) 3.4 MEQ/L CHLORIDE (test code = 2215) 98 MEQ/L CARBON DIOXIDE (test code = 27 MEQ/L 220) CALCIUM (test code = 2209) 9.4 MG/DL PROTEIN, TOTAL (test code = 7.8 G/DL 2228) ALBUMIN (test code = 2201) 4.8 G/DL CALC GLOBULIN (test code = 3.0 G/DL 2240) CALC A/G RATIO (test code = 1.6 RATIO 2234) BILIRUBIN, TOTAL (test code = 0.2 MG/DL 2206) ALKALINE PHOSPHATASE (test 115 U/L code = 2204) AST (test code = 2218) 26 U/L ALT (test code = 2219) 29 U/L MICROALBUMIN, [id number] 00:00:00 Test Item Value Reference Range Interpretation Comments MICROALBUMIN, RANDOM (test code = 4.1 MG/DL 45185) MICROALBUMIN, [id number] 00:00:00 Test Item Value Reference Range Interpretation Comments MICROALBUMIN, RANDOM (test code = 4.1 MG/DL 51156) LIPID [id number] 00:00:00 Test Item Value Reference Range Interpretation Comments CHOLESTEROL (test code = 2210) 186 MG/DL TRIGLYCERIDES (test code = 2232) 228 MG/DL HDL CHOLESTEROL (test code = 2220) 47 MG/DL CALC LDL CHOL (test code = 2237) 93 MG/DL RISK RATIO LDL/HDL (test code = 1.99 RATIO 2238) LIPID [id number] 00:00:00 Test Item Value Reference Range Interpretation Comments CHOLESTEROL (test code = 2210) 164 MG/DL TRIGLYCERIDES (test code = 2232) 569 MG/DL HDL CHOLESTEROL (test code = 2220) 28 MG/DL CALC LDL CHOL (test code = 2237) NOTE MG/DL LIPID [id number] 00:00:00 Test Item Value Reference Range Interpretation Comments CHOLESTEROL (test code = 2210) 164 MG/DL TRIGLYCERIDES (test code = 2232) 569 MG/DL HDL CHOLESTEROL (test code = 2220) 28 MG/DL CALC LDL CHOL (test code = 2237) NOTE MG/DL CBC W/AUTO [id number] 00:00:00 Test Item Value Reference Range Interpretation Comments WBC (test code = 1001) 5.5 K/UL RBC (test code = 1002) 4.32 M/UL HEMOGLOBIN (test code = 1003) 11.7 G/DL HEMATOCRIT (test code = 1004) 34.8 % MCV (test code = 1005) 80.6 fL MCH (test code = 1006) 27.1 PG MCHC (test code = 1007) 33.6 G/DL RDW (test code = 1038) 14.9 % NEUTROPHILS (test code = 1008) 57.0 % LYMPHOCYTES (test code = 1010) 29.3 % MONOCYTES (test code = 1011) 7.9 % EOSINOPHILS (test code = 1012) 5.3 % BASOPHILS (test code = 1013) 0.5 % PLATELET COUNT (test code = 1015) 285 K/UL CBC W/AUTO [id number] 00:00:00 Test Item Value Reference Range Interpretation Comments WBC (test code = 1001) 5.5 K/UL RBC (test code = 1002) 4.32 M/UL HEMOGLOBIN (test code = 1003) 11.7 G/DL HEMATOCRIT (test code = 1004) 34.8 % MCV (test code = 1005) 80.6 fL MCH (test code = 1006) 27.1 PG MCHC (test code = 1007) 33.6 G/DL RDW (test code = 1038) 14.9 % NEUTROPHILS (test code = 1008) 57.0 % LYMPHOCYTES (test code = 1010) 29.3 % MONOCYTES (test code = 1011) 7.9 % EOSINOPHILS (test code = 1012) 5.3 % BASOPHILS (test code = 1013) 0.5 % PLATELET COUNT (test code = 1015) 285 K/UL CBC W/AUTO [id number] 00:00:00 Test Item Value Reference Range Interpretation Comments WBC (test code = 1001) 5.5 K/UL RBC (test code = 1002) 4.32 M/UL HEMOGLOBIN (test code = 1003) 11.7 G/DL HEMATOCRIT (test code = 1004) 34.8 % MCV (test code = 1005) 80.6 fL MCH (test code = 1006) 27.1 PG MCHC (test code = 1007) 33.6 G/DL RDW (test code = 1038) 14.9 % NEUTROPHILS (test code = 1008) 57.0 % LYMPHOCYTES (test code = 1010) 29.3 % MONOCYTES (test code = 1011) 7.9 % EOSINOPHILS (test code = 1012) 5.3 % BASOPHILS (test code = 1013) 0.5 % PLATELET COUNT (test code = 1015) 285 K/UL HEMOGLOBIN [id number] 00:00:00 Test Item Value Reference Range Interpretation Comments HEMOGLOBIN A1c (test code = 18667) 5.0 % HEMOGLOBIN [id number] 00:00:00 Test Item Value Reference Range Interpretation Comments HEMOGLOBIN A1c (test code = 68407) 5.0 % HEMOGLOBIN [id number] 00:00:00 Test Item Value Reference Range Interpretation Comments HEMOGLOBIN A1c (test code = 62194) 5.0 % [id number] 00:00:00 Test Item Value Reference Range Interpretation Comments TSH (test code = 2821) 3.4 UIU/ML [id number] 00:00:00 Test Item Value Reference Range Interpretation Comments TSH (test code = 2821) 3.4 UIU/ML [id number] 00:00:00 Test Item Value Reference Range Interpretation Comments TSH (test code = 2821) 3.4 UIU/ML COMPREHENSIVE METABOLIC [id number] 00:00:00 Test Item Value Reference Range Interpretation Comments GLUCOSE (test code = 2217) 74 MG/DL BUN (test code = 2208) 13 MG/DL CREATININE (test code = 2214) 0.47 MG/DL eGFR AMER. (test code 132 ML/MIN/1.73 = 10338) eGFR NON- AMER. (test 114 ML/MIN/1.73 code = 42094) CALC BUN/CREAT (test code = 28 RATIO 2235) SODIUM (test code = 2231) 144 MEQ/L POTASSIUM (test code = 2228) 3.5 MEQ/L CHLORIDE (test code = 2215) 100 MEQ/L CARBON DIOXIDE (test code = 27 MEQ/L 2206) CALCIUM (test code = 2209) 10.0 MG/DL PROTEIN, TOTAL (test code = 6.9 G/DL 2228) ALBUMIN (test code = 2201) 4.3 G/DL CALC GLOBULIN (test code = 2.6 G/DL 2240) CALC A/G RATIO (test code = 1.7 RATIO 2234) BILIRUBIN, TOTAL (test code = 0.2 MG/DL 2206) ALKALINE PHOSPHATASE (test 105 U/L code = 2204) AST (test code = 2218) 40 U/L ALT (test code = 2219) 49 U/L COMPREHENSIVE METABOLIC [id number] 00:00:00 Test Item Value Reference Range Interpretation Comments GLUCOSE (test code = 2217) 74 MG/DL BUN (test code = 2208) 13 MG/DL CREATININE (test code = 2214) 0.47 MG/DL eGFR AMER. (test code 132 ML/MIN/1.73 = 99247) eGFR NON- AMER. (test 114 ML/MIN/1.73 code = 72615) CALC BUN/CREAT (test code = 28 RATIO 2235) SODIUM (test code = 2231) 144 MEQ/L POTASSIUM (test code = 2228) 3.5 MEQ/L CHLORIDE (test code = 2215) 100 MEQ/L CARBON DIOXIDE (test code = 27 MEQ/L 2206) CALCIUM (test code = 2209) 10.0 MG/DL PROTEIN, TOTAL (test code = 6.9 G/DL 2228) ALBUMIN (test code = 2201) 4.3 G/DL CALC GLOBULIN (test code = 2.6 G/DL 2240) CALC A/G RATIO (test code = 1.7 RATIO 2234) BILIRUBIN, TOTAL (test code = 0.2 MG/DL 2206) ALKALINE PHOSPHATASE (test 105 U/L code = 2204) AST (test code = 2218) 40 U/L ALT (test code = 2219) 49 U/L LIPID [id number] 00:00:00 Test Item Value Reference Range Interpretation Comments CHOLESTEROL (test code = 2210) 164 MG/DL TRIGLYCERIDES (test code = 2232) 569 MG/DL HDL CHOLESTEROL (test code = 2220) 28 MG/DL CALC LDL CHOL (test code = 2237) NOTE MG/DL LIPID [id number] 00:00:00 Test Item Value Reference Range Interpretation Comments CHOLESTEROL (test code = 2210) 164 MG/DL TRIGLYCERIDES (test code = 2232) 569 MG/DL HDL CHOLESTEROL (test code = 2220) 28 MG/DL CALC LDL CHOL (test code = 2237) NOTE MG/DL CBC W/AUTO [id number] 00:00:00 Test Item Value Reference Range Interpretation Comments WBC (test code = 1001) 5.5 K/UL RBC (test code = 1002) 4.32 M/UL HEMOGLOBIN (test code = 1003) 11.7 G/DL HEMATOCRIT (test code = 1004) 34.8 % MCV (test code = 1005) 80.6 fL MCH (test code = 1006) 27.1 PG MCHC (test code = 1007) 33.6 G/DL RDW (test code = 1038) 14.9 % NEUTROPHILS (test code = 1008) 57.0 % LYMPHOCYTES (test code = 1010) 29.3 % MONOCYTES (test code = 1011) 7.9 % EOSINOPHILS (test code = 1012) 5.3 % BASOPHILS (test code = 1013) 0.5 % PLATELET COUNT (test code = 1015) 285 K/UL CBC W/AUTO [id number] 00:00:00 Test Item Value Reference Range Interpretation Comments WBC (test code = 1001) 5.5 K/UL RBC (test code = 1002) 4.32 M/UL HEMOGLOBIN (test code = 1003) 11.7 G/DL HEMATOCRIT (test code = 1004) 34.8 % MCV (test code = 1005) 80.6 fL MCH (test code = 1006) 27.1 PG MCHC (test code = 1007) 33.6 G/DL RDW (test code = 1038) 14.9 % NEUTROPHILS (test code = 1008) 57.0 % LYMPHOCYTES (test code = 1010) 29.3 % MONOCYTES (test code = 1011) 7.9 % EOSINOPHILS (test code = 1012) 5.3 % BASOPHILS (test code = 1013) 0.5 % PLATELET COUNT (test code = 1015) 285 K/UL CBC W/AUTO [id number] 00:00:00 Test Item Value Reference Range Interpretation Comments WBC (test code = 1001) 5.5 K/UL RBC (test code = 1002) 4.32 M/UL HEMOGLOBIN (test code = 1003) 11.7 G/DL HEMATOCRIT (test code = 1004) 34.8 % MCV (test code = 1005) 80.6 fL MCH (test code = 1006) 27.1 PG MCHC (test code = 1007) 33.6 G/DL RDW (test code = 1038) 14.9 % NEUTROPHILS (test code = 1008) 57.0 % LYMPHOCYTES (test code = 1010) 29.3 % MONOCYTES (test code = 1011) 7.9 % EOSINOPHILS (test code = 1012) 5.3 % BASOPHILS (test code = 1013) 0.5 % PLATELET COUNT (test code = 1015) 285 K/UL HEMOGLOBIN [id number] 00:00:00 Test Item Value Reference Range Interpretation Comments HEMOGLOBIN A1c (test code = 11696) 5.0 % HEMOGLOBIN [id number] 00:00:00 Test Item Value Reference Range Interpretation Comments HEMOGLOBIN A1c (test code = 22218) 5.0 % HEMOGLOBIN [id number] 00:00:00 Test Item Value Reference Range Interpretation Comments HEMOGLOBIN A1c (test code = 67519) 5.0 % [id number] 00:00:00 Test Item Value Reference Range Interpretation Comments TSH (test code = 2821) 3.4 UIU/ML [id number] 00:00:00 Test Item Value Reference Range Interpretation Comments TSH (test code = 2821) 3.4 UIU/ML [id number] 00:00:00 Test Item Value Reference Range Interpretation Comments TSH (test code = 2821) 3.4 UIU/ML COMPREHENSIVE METABOLIC [id number] 00:00:00 Test Item Value Reference Range Interpretation Comments GLUCOSE (test code = 2217) 74 MG/DL BUN (test code = 2208) 13 MG/DL CREATININE (test code = 2214) 0.47 MG/DL eGFR AMER. (test code 132 ML/MIN/1.73 = 85258) eGFR NON- AMER. (test 114 ML/MIN/1.73 code = 61799) CALC BUN/CREAT (test code = 28 RATIO 2235) SODIUM (test code = 2231) 144 MEQ/L POTASSIUM (test code = 2228) 3.5 MEQ/L CHLORIDE (test code = 2215) 100 MEQ/L CARBON DIOXIDE (test code = 27 MEQ/L 220) CALCIUM (test code = 2209) 10.0 MG/DL PROTEIN, TOTAL (test code = 6.9 G/DL 2228) ALBUMIN (test code = 2201) 4.3 G/DL CALC GLOBULIN (test code = 2.6 G/DL 2240) CALC A/G RATIO (test code = 1.7 RATIO 2234) BILIRUBIN, TOTAL (test code = 0.2 MG/DL 2206) ALKALINE PHOSPHATASE (test 105 U/L code = 2204) AST (test code = 2218) 40 U/L ALT (test code = 2219) 49 U/L COMPREHENSIVE METABOLIC [id number] 00:00:00 Test Item Value Reference Range Interpretation Comments GLUCOSE (test code = 2217) 74 MG/DL BUN (test code = 2208) 13 MG/DL CREATININE (test code = 2214) 0.47 MG/DL eGFR AMER. (test code 132 ML/MIN/1.73 = 53038) eGFR NON- AMER. (test 114 ML/MIN/1.73 code = 53441) CALC BUN/CREAT (test code = 28 RATIO 2235) SODIUM (test code = 2231) 144 MEQ/L POTASSIUM (test code = 2228) 3.5 MEQ/L CHLORIDE (test code = 2215) 100 MEQ/L CARBON DIOXIDE (test code = 27 MEQ/L 220) CALCIUM (test code = 2209) 10.0 MG/DL PROTEIN, TOTAL (test code = 6.9 G/DL 2228) ALBUMIN (test code = 2201) 4.3 G/DL CALC GLOBULIN (test code = 2.6 G/DL 2240) CALC A/G RATIO (test code = 1.7 RATIO 2234) BILIRUBIN, TOTAL (test code = 0.2 MG/DL 7) ALKALINE PHOSPHATASE (test 105 U/L code = 2204) AST (test code = 2218) 40 U/L ALT (test code = 2219) 49 U/L LIPID [id number] 00:00:00 Test Item Value Reference Range Interpretation Comments CHOLESTEROL (test code = 2210) 164 MG/DL TRIGLYCERIDES (test code = 2232) 569 MG/DL HDL CHOLESTEROL (test code = 2220) 28 MG/DL CALC LDL CHOL (test code = 2237) NOTE MG/DL LIPID [id number] 00:00:00 Test Item Value Reference Range Interpretation Comments CHOLESTEROL (test code = 2210) 164 MG/DL TRIGLYCERIDES (test code = 2232) 569 MG/DL HDL CHOLESTEROL (test code = 2220) 28 MG/DL CALC LDL CHOL (test code = 2237) NOTE MG/DL CBC W/AUTO [id number] 00:00:00 Test Item Value Reference Range Interpretation Comments WBC (test code = 1001) 5.5 K/UL RBC (test code = 1002) 4.32 M/UL HEMOGLOBIN (test code = 1003) 11.7 G/DL HEMATOCRIT (test code = 1004) 34.8 % MCV (test code = 1005) 80.6 fL MCH (test code = 1006) 27.1 PG MCHC (test code = 1007) 33.6 G/DL RDW (test code = 1038) 14.9 % NEUTROPHILS (test code = 1008) 57.0 % LYMPHOCYTES (test code = 1010) 29.3 % MONOCYTES (test code = 1011) 7.9 % EOSINOPHILS (test code = 1012) 5.3 % BASOPHILS (test code = 1013) 0.5 % PLATELET COUNT (test code = 1015) 285 K/UL CBC W/AUTO [id number] 00:00:00 Test Item Value Reference Range Interpretation Comments WBC (test code = 1001) 5.5 K/UL RBC (test code = 1002) 4.32 M/UL HEMOGLOBIN (test code = 1003) 11.7 G/DL HEMATOCRIT (test code = 1004) 34.8 % MCV (test code = 1005) 80.6 fL MCH (test code = 1006) 27.1 PG MCHC (test code = 1007) 33.6 G/DL RDW (test code = 1038) 14.9 % NEUTROPHILS (test code = 1008) 57.0 % LYMPHOCYTES (test code = 1010) 29.3 % MONOCYTES (test code = 1011) 7.9 % EOSINOPHILS (test code = 1012) 5.3 % BASOPHILS (test code = 1013) 0.5 % PLATELET COUNT (test code = 1015) 285 K/UL CBC W/AUTO [id number] 00:00:00 Test Item Value Reference Range Interpretation Comments WBC (test code = 1001) 5.5 K/UL RBC (test code = 1002) 4.32 M/UL HEMOGLOBIN (test code = 1003) 11.7 G/DL HEMATOCRIT (test code = 1004) 34.8 % MCV (test code = 1005) 80.6 fL MCH (test code = 1006) 27.1 PG MCHC (test code = 1007) 33.6 G/DL RDW (test code = 1038) 14.9 % NEUTROPHILS (test code = 1008) 57.0 % LYMPHOCYTES (test code = 1010) 29.3 % MONOCYTES (test code = 1011) 7.9 % EOSINOPHILS (test code = 1012) 5.3 % BASOPHILS (test code = 1013) 0.5 % PLATELET COUNT (test code = 1015) 285 K/UL HEMOGLOBIN [id number] 00:00:00 Test Item Value Reference Range Interpretation Comments HEMOGLOBIN A1c (test code = 61433) 5.0 % HEMOGLOBIN [id number] 00:00:00 Test Item Value Reference Range Interpretation Comments HEMOGLOBIN A1c (test code = 68795) 5.0 % HEMOGLOBIN [id number] 00:00:00 Test Item Value Reference Range Interpretation Comments HEMOGLOBIN A1c (test code = 02147) 5.0 % [id number] 00:00:00 Test Item Value Reference Range Interpretation Comments TSH (test code = 2821) 3.4 UIU/ML [id number] 00:00:00 Test Item Value Reference Range Interpretation Comments TSH (test code = 2821) 3.4 UIU/ML [id number] 00:00:00 Test Item Value Reference Range Interpretation Comments TSH (test code = 2821) 3.4 UIU/ML COMPREHENSIVE METABOLIC [id number] 00:00:00 Test Item Value Reference Range Interpretation Comments GLUCOSE (test code = 2217) 74 MG/DL BUN (test code = 2208) 13 MG/DL CREATININE (test code = 2214) 0.47 MG/DL eGFR AMER. (test code 132 ML/MIN/1.73 = 05337) eGFR NON- AMER. (test 114 ML/MIN/1.73 code = 79275) CALC BUN/CREAT (test code = 28 RATIO 2235) SODIUM (test code = 2231) 144 MEQ/L POTASSIUM (test code = 2228) 3.5 MEQ/L CHLORIDE (test code = 2215) 100 MEQ/L CARBON DIOXIDE (test code = 27 MEQ/L 2205) CALCIUM (test code = 2209) 10.0 MG/DL PROTEIN, TOTAL (test code = 6.9 G/DL 2228) ALBUMIN (test code = 2201) 4.3 G/DL CALC GLOBULIN (test code = 2.6 G/DL 2239) CALC A/G RATIO (test code = 1.7 RATIO 2233) BILIRUBIN, TOTAL (test code = 0.2 MG/DL 2206) ALKALINE PHOSPHATASE (test 105 U/L code = 2204) AST (test code = 2218) 40 U/L ALT (test code = 2219) 49 U/L LIPID [id number] 00:00:00 Test Item Value Reference Range Interpretation Comments CHOLESTEROL (test code = 2210) 164 MG/DL TRIGLYCERIDES (test code = 2232) 569 MG/DL HDL CHOLESTEROL (test code = 2220) 28 MG/DL CALC LDL CHOL (test code = 2237) NOTE MG/DL CBC W/AUTO [id number] 00:00:00 Test Item Value Reference Range Interpretation Comments WBC (test code = 1001) 5.5 K/UL RBC (test code = 1002) 4.32 M/UL HEMOGLOBIN (test code = 1003) 11.7 G/DL HEMATOCRIT (test code = 1004) 34.8 % MCV (test code = 1005) 80.6 fL MCH (test code = 1006) 27.1 PG MCHC (test code = 1007) 33.6 G/DL RDW (test code = 1038) 14.9 % NEUTROPHILS (test code = 1008) 57.0 % LYMPHOCYTES (test code = 1010) 29.3 % MONOCYTES (test code = 1011) 7.9 % EOSINOPHILS (test code = 1012) 5.3 % BASOPHILS (test code = 1013) 0.5 % PLATELET COUNT (test code = 1015) 285 K/UL CBC W/AUTO [id number] 00:00:00 Test Item Value Reference Range Interpretation Comments WBC (test code = 1001) 5.5 K/UL RBC (test code = 1002) 4.32 M/UL HEMOGLOBIN (test code = 1003) 11.7 G/DL HEMATOCRIT (test code = 1004) 34.8 % MCV (test code = 1005) 80.6 fL MCH (test code = 1006) 27.1 PG MCHC (test code = 1007) 33.6 G/DL RDW (test code = 1038) 14.9 % NEUTROPHILS (test code = 1008) 57.0 % LYMPHOCYTES (test code = 1010) 29.3 % MONOCYTES (test code = 1011) 7.9 % EOSINOPHILS (test code = 1012) 5.3 % BASOPHILS (test code = 1013) 0.5 % PLATELET COUNT (test code = 1015) 285 K/UL HEMOGLOBIN [id number] 00:00:00 Test Item Value Reference Range Interpretation Comments HEMOGLOBIN A1c (test code = 65336) 5.0 % HEMOGLOBIN [id number] 00:00:00 Test Item Value Reference Range Interpretation Comments HEMOGLOBIN A1c (test code = 97343) 5.0 % [id number] 00:00:00 Test Item Value Reference Range Interpretation Comments TSH (test code = 2821) 3.4 UIU/ML [id number] 00:00:00 Test Item Value Reference Range Interpretation Comments TSH (test code = 2821) 3.4 UIU/ML COMPREHENSIVE METABOLIC [id number] 00:00:00 Test Item Value Reference Range Interpretation Comments GLUCOSE (test code = 2217) 74 MG/DL BUN (test code = 2208) 13 MG/DL CREATININE (test code = 2214) 0.47 MG/DL eGFR AMER. (test code 132 ML/MIN/1.73 = 42816) eGFR NON- AMER. (test 114 ML/MIN/1.73 code = 00946) CALC BUN/CREAT (test code = 28 RATIO 2235) SODIUM (test code = 2231) 144 MEQ/L POTASSIUM (test code = 2228) 3.5 MEQ/L CHLORIDE (test code = 2215) 100 MEQ/L CARBON DIOXIDE (test code = 27 MEQ/L 220) CALCIUM (test code = 2209) 10.0 MG/DL PROTEIN, TOTAL (test code = 6.9 G/DL 222) ALBUMIN (test code = 2201) 4.3 G/DL CALC GLOBULIN (test code = 2.6 G/DL 2240) CALC A/G RATIO (test code = 1.7 RATIO 2234) BILIRUBIN, TOTAL (test code = 0.2 MG/DL 2206) ALKALINE PHOSPHATASE (test 105 U/L code = 2204) AST (test code = 2218) 40 U/L ALT (test code = 2219) 49 U/L COMPREHENSIVE METABOLIC [id number] 00:00:00 Test Item Value Reference Range Interpretation Comments GLUCOSE (test code = 2217) 74 MG/DL BUN (test code = 2208) 13 MG/DL CREATININE (test code = 2214) 0.47 MG/DL eGFR AMER. (test code 132 ML/MIN/1.73 = 37935) eGFR NON- AMER. (test 114 ML/MIN/1.73 code = 76757) CALC BUN/CREAT (test code = 28 RATIO 2235) SODIUM (test code = 2231) 144 MEQ/L POTASSIUM (test code = 2228) 3.5 MEQ/L CHLORIDE (test code = 2215) 100 MEQ/L CARBON DIOXIDE (test code = 27 MEQ/L 2205) CALCIUM (test code = 2209) 10.0 MG/DL PROTEIN, TOTAL (test code = 6.9 G/DL 2229) ALBUMIN (test code = 2201) 4.3 G/DL CALC GLOBULIN (test code = 2.6 G/DL 2240) CALC A/G RATIO (test code = 1.7 RATIO 2234) BILIRUBIN, TOTAL (test code = 0.2 MG/DL 2206) ALKALINE PHOSPHATASE (test 105 U/L code = 2204) AST (test code = 2218) 40 U/L ALT (test code = 2219) 49 U/L CBC W/AUTO [id number] 00:00:00 Test Item Value Reference Range Interpretation Comments WBC (test code = 1001) 7.0 K/UL RBC (test code = 1002) 4.87 M/UL HEMOGLOBIN (test code = 1003) 13.0 G/DL HEMATOCRIT (test code = 1004) 38.9 % MCV (test code = 1005) 79.9 fL MCH (test code = 1006) 26.7 PG MCHC (test code = 1007) 33.4 G/DL RDW (test code = 1038) 16.1 % NEUTROPHILS (test code = 1008) 66.4 % LYMPHOCYTES (test code = 1010) 25.2 % MONOCYTES (test code = 1011) 4.2 % EOSINOPHILS (test code = 1012) 3.9 % BASOPHILS (test code = 1013) 0.3 % PLATELET COUNT (test code = 1015) 302 K/UL CBC W/AUTO [id number] 00:00:00 Test Item Value Reference Range Interpretation Comments WBC (test code = 1001) 7.0 K/UL RBC (test code = 1002) 4.87 M/UL HEMOGLOBIN (test code = 1003) 13.0 G/DL HEMATOCRIT (test code = 1004) 38.9 % MCV (test code = 1005) 79.9 fL MCH (test code = 1006) 26.7 PG MCHC (test code = 1007) 33.4 G/DL RDW (test code = 1038) 16.1 % NEUTROPHILS (test code = 1008) 66.4 % LYMPHOCYTES (test code = 1010) 25.2 % MONOCYTES (test code = 1011) 4.2 % EOSINOPHILS (test code = 1012) 3.9 % BASOPHILS (test code = 1013) 0.3 % PLATELET COUNT (test code = 1015) 302 K/UL CBC W/AUTO [id number] 00:00:00 Test Item Value Reference Range Interpretation Comments WBC (test code = 1001) 7.0 K/UL RBC (test code = 1002) 4.87 M/UL HEMOGLOBIN (test code = 1003) 13.0 G/DL HEMATOCRIT (test code = 1004) 38.9 % MCV (test code = 1005) 79.9 fL MCH (test code = 1006) 26.7 PG MCHC (test code = 1007) 33.4 G/DL RDW (test code = 1038) 16.1 % NEUTROPHILS (test code = 1008) 66.4 % LYMPHOCYTES (test code = 1010) 25.2 % MONOCYTES (test code = 1011) 4.2 % EOSINOPHILS (test code = 1012) 3.9 % BASOPHILS (test code = 1013) 0.3 % PLATELET COUNT (test code = 1015) 302 K/UL COMPREHENSIVE METABOLIC [id number] 00:00:00 Test Item Value Reference Range Interpretation Comments GLUCOSE (test code = 2217) 81 MG/DL BUN (test code = 2208) 21 MG/DL CREATININE (test code = 2214) 0.71 MG/DL eGFR AMER. (test code 113 ML/MIN/1.73 = 41870) eGFR NON- AMER. (test 98 ML/MIN/1.73 code = 74711) CALC BUN/CREAT (test code = 30 RATIO 2235) SODIUM (test code = 2231) 143 MEQ/L POTASSIUM (test code = 2228) 4.4 MEQ/L CHLORIDE (test code = 2215) 100 MEQ/L CARBON DIOXIDE (test code = 24 MEQ/L 2206) CALCIUM (test code = 2209) 9.9 MG/DL PROTEIN, TOTAL (test code = 7.5 G/DL 2229) ALBUMIN (test code = 2201) 4.6 G/DL CALC GLOBULIN (test code = 2.9 G/DL 2240) CALC A/G RATIO (test code = 1.6 RATIO 2234) BILIRUBIN, TOTAL (test code = 0.2 MG/DL 2207) ALKALINE PHOSPHATASE (test 120 U/L code = 2204) AST (test code = 2218) 26 U/L ALT (test code = 2219) 26 U/L COMPREHENSIVE METABOLIC [id number] 00:00:00 Test Item Value Reference Range Interpretation Comments GLUCOSE (test code = 2217) 81 MG/DL BUN (test code = 2208) 21 MG/DL CREATININE (test code = 2214) 0.71 MG/DL eGFR AMER. (test code 113 ML/MIN/1.73 = 73352) eGFR NON- AMER. (test 98 ML/MIN/1.73 code = 79105) CALC BUN/CREAT (test code = 30 RATIO 2235) SODIUM (test code = 2231) 143 MEQ/L POTASSIUM (test code = 2228) 4.4 MEQ/L CHLORIDE (test code = 2215) 100 MEQ/L CARBON DIOXIDE (test code = 24 MEQ/L 2205) CALCIUM (test code = 2209) 9.9 MG/DL PROTEIN, TOTAL (test code = 7.5 G/DL 2228) ALBUMIN (test code = 2201) 4.6 G/DL CALC GLOBULIN (test code = 2.9 G/DL 2239) CALC A/G RATIO (test code = 1.6 RATIO 2234) BILIRUBIN, TOTAL (test code = 0.2 MG/DL 2206) ALKALINE PHOSPHATASE (test 120 U/L code = 2204) AST (test code = 2218) 26 U/L ALT (test code = 2219) 26 U/L LIPID [id number] 00:00:00 Test Item Value Reference Range Interpretation Comments CHOLESTEROL (test code = 2210) 247 MG/DL TRIGLYCERIDES (test code = 2232) 373 MG/DL HDL CHOLESTEROL (test code = 2220) 49 MG/DL CALC LDL CHOL (test code = 2237) 123 MG/DL RISK RATIO LDL/HDL (test code = 2.52 RATIO 2238) LIPID [id number] 00:00:00 Test Item Value Reference Range Interpretation Comments CHOLESTEROL (test code = 2210) 247 MG/DL TRIGLYCERIDES (test code = 2232) 373 MG/DL HDL CHOLESTEROL (test code = 2220) 49 MG/DL CALC LDL CHOL (test code = 2237) 123 MG/DL RISK RATIO LDL/HDL (test code = 2.52 RATIO 2238) THYROID II PROFILE (T3U, T4, T7, TSH)[id number] 00:00:00 Test Item Value Reference Range Interpretation Comments T3 UPTAKE (test code = 2817) 27.2 % T4 (THYROXINE) (test code = 2819) 6.4 UG/DL CALCULATED T7 (FTI) (test code = 1.74 2820) TSH (test code = 2821) 3.0 UIU/ML THYROID II PROFILE (T3U, T4, T7, TSH)2016-06-27 00:00:00 Test Item Value Reference Range Interpretation Comments T3 UPTAKE (test code = 2817) 27.2 % T4 (THYROXINE) (test code = 2819) 6.4 UG/DL CALCULATED T7 (FTI) (test code = 1.74 2820) TSH (test code = 2821) 3.0 UIU/ML HEMOGLOBIN [id number] 00:00:00 Test Item Value Reference Range Interpretation Comments HEMOGLOBIN A1c (test code = 63523) 7.8 % HEMOGLOBIN [id number] 00:00:00 Test Item Value Reference Range Interpretation Comments HEMOGLOBIN A1c (test code = 63197) 7.8 % HEMOGLOBIN [id number] 00:00:00 Test Item Value Reference Range Interpretation Comments HEMOGLOBIN A1c (test code = 98473) 7.8 % CBC W/AUTO [id number] 00:00:00 Test Item Value Reference Range Interpretation Comments WBC (test code = 1001) 7.0 K/UL RBC (test code = 1002) 4.87 M/UL HEMOGLOBIN (test code = 1003) 13.0 G/DL HEMATOCRIT (test code = 1004) 38.9 % MCV (test code = 1005) 79.9 fL MCH (test code = 1006) 26.7 PG MCHC (test code = 1007) 33.4 G/DL RDW (test code = 1038) 16.1 % NEUTROPHILS (test code = 1008) 66.4 % LYMPHOCYTES (test code = 1010) 25.2 % MONOCYTES (test code = 1011) 4.2 % EOSINOPHILS (test code = 1012) 3.9 % BASOPHILS (test code = 1013) 0.3 % PLATELET COUNT (test code = 1015) 302 K/UL CBC W/AUTO [id number] 00:00:00 Test Item Value Reference Range Interpretation Comments WBC (test code = 1001) 7.0 K/UL RBC (test code = 1002) 4.87 M/UL HEMOGLOBIN (test code = 1003) 13.0 G/DL HEMATOCRIT (test code = 1004) 38.9 % MCV (test code = 1005) 79.9 fL MCH (test code = 1006) 26.7 PG MCHC (test code = 1007) 33.4 G/DL RDW (test code = 1038) 16.1 % NEUTROPHILS (test code = 1008) 66.4 % LYMPHOCYTES (test code = 1010) 25.2 % MONOCYTES (test code = 1011) 4.2 % EOSINOPHILS (test code = 1012) 3.9 % BASOPHILS (test code = 1013) 0.3 % PLATELET COUNT (test code = 1015) 302 K/UL CBC W/AUTO [id number] 00:00:00 Test Item Value Reference Range Interpretation Comments WBC (test code = 1001) 7.0 K/UL RBC (test code = 1002) 4.87 M/UL HEMOGLOBIN (test code = 1003) 13.0 G/DL HEMATOCRIT (test code = 1004) 38.9 % MCV (test code = 1005) 79.9 fL MCH (test code = 1006) 26.7 PG MCHC (test code = 1007) 33.4 G/DL RDW (test code = 1038) 16.1 % NEUTROPHILS (test code = 1008) 66.4 % LYMPHOCYTES (test code = 1010) 25.2 % MONOCYTES (test code = 1011) 4.2 % EOSINOPHILS (test code = 1012) 3.9 % BASOPHILS (test code = 1013) 0.3 % PLATELET COUNT (test code = 1015) 302 K/UL COMPREHENSIVE METABOLIC [id number] 00:00:00 Test Item Value Reference Range Interpretation Comments GLUCOSE (test code = 2217) 81 MG/DL BUN (test code = 2208) 21 MG/DL CREATININE (test code = 2214) 0.71 MG/DL eGFR AMER. (test code 113 ML/MIN/1.73 = 31417) eGFR NON- AMER. (test 98 ML/MIN/1.73 code = 10447) CALC BUN/CREAT (test code = 30 RATIO 2235) SODIUM (test code = 2231) 143 MEQ/L POTASSIUM (test code = 2228) 4.4 MEQ/L CHLORIDE (test code = 2215) 100 MEQ/L CARBON DIOXIDE (test code = 24 MEQ/L 2206) CALCIUM (test code = 2209) 9.9 MG/DL PROTEIN, TOTAL (test code = 7.5 G/DL 2228) ALBUMIN (test code = 2201) 4.6 G/DL CALC GLOBULIN (test code = 2.9 G/DL 2239) CALC A/G RATIO (test code = 1.6 RATIO 2234) BILIRUBIN, TOTAL (test code = 0.2 MG/DL 2206) ALKALINE PHOSPHATASE (test 120 U/L code = 2204) AST (test code = 2218) 26 U/L ALT (test code = 2219) 26 U/L COMPREHENSIVE METABOLIC [id number] 00:00:00 Test Item Value Reference Range Interpretation Comments GLUCOSE (test code = 2217) 81 MG/DL BUN (test code = 2208) 21 MG/DL CREATININE (test code = 2214) 0.71 MG/DL eGFR AMER. (test code 113 ML/MIN/1.73 = 30077) eGFR NON- AMER. (test 98 ML/MIN/1.73 code = 25599) CALC BUN/CREAT (test code = 30 RATIO 2235) SODIUM (test code = 2231) 143 MEQ/L POTASSIUM (test code = 2228) 4.4 MEQ/L CHLORIDE (test code = 2215) 100 MEQ/L CARBON DIOXIDE (test code = 24 MEQ/L 2206) CALCIUM (test code = 2209) 9.9 MG/DL PROTEIN, TOTAL (test code = 7.5 G/DL 2228) ALBUMIN (test code = 2201) 4.6 G/DL CALC GLOBULIN (test code = 2.9 G/DL 2240) CALC A/G RATIO (test code = 1.6 RATIO 2234) BILIRUBIN, TOTAL (test code = 0.2 MG/DL 2206) ALKALINE PHOSPHATASE (test 120 U/L code = 2204) AST (test code = 2218) 26 U/L ALT (test code = 2219) 26 U/L LIPID [id number] 00:00:00 Test Item Value Reference Range Interpretation Comments CHOLESTEROL (test code = 2210) 247 MG/DL TRIGLYCERIDES (test code = 2232) 373 MG/DL HDL CHOLESTEROL (test code = 2220) 49 MG/DL CALC LDL CHOL (test code = 2237) 123 MG/DL RISK RATIO LDL/HDL (test code = 2.52 RATIO 2238) LIPID [id number] 00:00:00 Test Item Value Reference Range Interpretation Comments CHOLESTEROL (test code = 2210) 247 MG/DL TRIGLYCERIDES (test code = 2232) 373 MG/DL HDL CHOLESTEROL (test code = 2220) 49 MG/DL CALC LDL CHOL (test code = 2237) 123 MG/DL RISK RATIO LDL/HDL (test code = 2.52 RATIO 2238) THYROID II PROFILE (T3U, T4, T7, TSH)2016-06-27 00:00:00 Test Item Value Reference Range Interpretation Comments T3 UPTAKE (test code = 2817) 27.2 % T4 (THYROXINE) (test code = 2819) 6.4 UG/DL CALCULATED T7 (FTI) (test code = 1.74 2820) TSH (test code = 2821) 3.0 UIU/ML THYROID II PROFILE (T3U, T4, T7, TSH)2016-06-27 00:00:00 Test Item Value Reference Range Interpretation Comments T3 UPTAKE (test code = 2817) 27.2 % T4 (THYROXINE) (test code = 2819) 6.4 UG/DL CALCULATED T7 (FTI) (test code = 1.74 2820) TSH (test code = 2821) 3.0 UIU/ML HEMOGLOBIN [id number] 00:00:00 Test Item Value Reference Range Interpretation Comments HEMOGLOBIN A1c (test code = 39369) 7.8 % HEMOGLOBIN [id number] 00:00:00 Test Item Value Reference Range Interpretation Comments HEMOGLOBIN A1c (test code = 29899) 7.8 % HEMOGLOBIN [id number] 00:00:00 Test Item Value Reference Range Interpretation Comments HEMOGLOBIN A1c (test code = 46060) 7.8 % CBC W/AUTO [id number] 00:00:00 Test Item Value Reference Range Interpretation Comments WBC (test code = 1001) 7.0 K/UL RBC (test code = 1002) 4.87 M/UL HEMOGLOBIN (test code = 1003) 13.0 G/DL HEMATOCRIT (test code = 1004) 38.9 % MCV (test code = 1005) 79.9 fL MCH (test code = 1006) 26.7 PG MCHC (test code = 1007) 33.4 G/DL RDW (test code = 1038) 16.1 % NEUTROPHILS (test code = 1008) 66.4 % LYMPHOCYTES (test code = 1010) 25.2 % MONOCYTES (test code = 1011) 4.2 % EOSINOPHILS (test code = 1012) 3.9 % BASOPHILS (test code = 1013) 0.3 % PLATELET COUNT (test code = 1015) 302 K/UL CBC W/AUTO [id number] 00:00:00 Test Item Value Reference Range Interpretation Comments WBC (test code = 1001) 7.0 K/UL RBC (test code = 1002) 4.87 M/UL HEMOGLOBIN (test code = 1003) 13.0 G/DL HEMATOCRIT (test code = 1004) 38.9 % MCV (test code = 1005) 79.9 fL MCH (test code = 1006) 26.7 PG MCHC (test code = 1007) 33.4 G/DL RDW (test code = 1038) 16.1 % NEUTROPHILS (test code = 1008) 66.4 % LYMPHOCYTES (test code = 1010) 25.2 % MONOCYTES (test code = 1011) 4.2 % EOSINOPHILS (test code = 1012) 3.9 % BASOPHILS (test code = 1013) 0.3 % PLATELET COUNT (test code = 1015) 302 K/UL CBC W/AUTO [id number] 00:00:00 Test Item Value Reference Range Interpretation Comments WBC (test code = 1001) 7.0 K/UL RBC (test code = 1002) 4.87 M/UL HEMOGLOBIN (test code = 1003) 13.0 G/DL HEMATOCRIT (test code = 1004) 38.9 % MCV (test code = 1005) 79.9 fL MCH (test code = 1006) 26.7 PG MCHC (test code = 1007) 33.4 G/DL RDW (test code = 1038) 16.1 % NEUTROPHILS (test code = 1008) 66.4 % LYMPHOCYTES (test code = 1010) 25.2 % MONOCYTES (test code = 1011) 4.2 % EOSINOPHILS (test code = 1012) 3.9 % BASOPHILS (test code = 1013) 0.3 % PLATELET COUNT (test code = 1015) 302 K/UL COMPREHENSIVE METABOLIC [id number] 00:00:00 Test Item Value Reference Range Interpretation Comments GLUCOSE (test code = 2217) 81 MG/DL BUN (test code = 2208) 21 MG/DL CREATININE (test code = 2214) 0.71 MG/DL eGFR AMER. (test code 113 ML/MIN/1.73 = 81568) eGFR NON- AMER. (test 98 ML/MIN/1.73 code = 80212) CALC BUN/CREAT (test code = 30 RATIO 2235) SODIUM (test code = 2231) 143 MEQ/L POTASSIUM (test code = 2228) 4.4 MEQ/L CHLORIDE (test code = 2215) 100 MEQ/L CARBON DIOXIDE (test code = 24 MEQ/L 220) CALCIUM (test code = 2209) 9.9 MG/DL PROTEIN, TOTAL (test code = 7.5 G/DL 222) ALBUMIN (test code = 2201) 4.6 G/DL CALC GLOBULIN (test code = 2.9 G/DL 2240) CALC A/G RATIO (test code = 1.6 RATIO 2234) BILIRUBIN, TOTAL (test code = 0.2 MG/DL 2206) ALKALINE PHOSPHATASE (test 120 U/L code = 2204) AST (test code = 2218) 26 U/L ALT (test code = 2219) 26 U/L COMPREHENSIVE METABOLIC [id number] 00:00:00 Test Item Value Reference Range Interpretation Comments GLUCOSE (test code = 2217) 81 MG/DL BUN (test code = 2208) 21 MG/DL CREATININE (test code = 2214) 0.71 MG/DL eGFR AMER. (test code 113 ML/MIN/1.73 = 99567) eGFR NON- AMER. (test 98 ML/MIN/1.73 code = 52484) CALC BUN/CREAT (test code = 30 RATIO 2235) SODIUM (test code = 2231) 143 MEQ/L POTASSIUM (test code = 2228) 4.4 MEQ/L CHLORIDE (test code = 2215) 100 MEQ/L CARBON DIOXIDE (test code = 24 MEQ/L 2205) CALCIUM (test code = 2209) 9.9 MG/DL PROTEIN, TOTAL (test code = 7.5 G/DL 2228) ALBUMIN (test code = 2201) 4.6 G/DL CALC GLOBULIN (test code = 2.9 G/DL 2240) CALC A/G RATIO (test code = 1.6 RATIO 2234) BILIRUBIN, TOTAL (test code = 0.2 MG/DL 2206) ALKALINE PHOSPHATASE (test 120 U/L code = 2204) AST (test code = 2218) 26 U/L ALT (test code = 2219) 26 U/L LIPID [id number] 00:00:00 Test Item Value Reference Range Interpretation Comments CHOLESTEROL (test code = 2210) 247 MG/DL TRIGLYCERIDES (test code = 2232) 373 MG/DL HDL CHOLESTEROL (test code = 2220) 49 MG/DL CALC LDL CHOL (test code = 2237) 123 MG/DL RISK RATIO LDL/HDL (test code = 2.52 RATIO 2238) LIPID [id number] 00:00:00 Test Item Value Reference Range Interpretation Comments CHOLESTEROL (test code = 2210) 247 MG/DL TRIGLYCERIDES (test code = 2232) 373 MG/DL HDL CHOLESTEROL (test code = 2220) 49 MG/DL CALC LDL CHOL (test code = 2237) 123 MG/DL RISK RATIO LDL/HDL (test code = 2.52 RATIO 2238) THYROID II PROFILE (T3U, T4, T7, TSH)2016-06-27 00:00:00 Test Item Value Reference Range Interpretation Comments T3 UPTAKE (test code = 2817) 27.2 % T4 (THYROXINE) (test code = 2819) 6.4 UG/DL CALCULATED T7 (FTI) (test code = 1.74 2820) TSH (test code = 2821) 3.0 UIU/ML THYROID II PROFILE (T3U, T4, T7, TSH)2016-06-27 00:00:00 Test Item Value Reference Range Interpretation Comments T3 UPTAKE (test code = 2817) 27.2 % T4 (THYROXINE) (test code = 2819) 6.4 UG/DL CALCULATED T7 (FTI) (test code = 1.74 2820) TSH (test code = 2821) 3.0 UIU/ML HEMOGLOBIN [id number] 00:00:00 Test Item Value Reference Range Interpretation Comments HEMOGLOBIN A1c (test code = 13348) 7.8 % HEMOGLOBIN [id number] 00:00:00 Test Item Value Reference Range Interpretation Comments HEMOGLOBIN A1c (test code = 91981) 7.8 % CBC W/AUTO [id number] 00:00:00 Test Item Value Reference Range Interpretation Comments WBC (test code = 1001) 7.0 K/UL RBC (test code = 1002) 4.87 M/UL HEMOGLOBIN (test code = 1003) 13.0 G/DL HEMATOCRIT (test code = 1004) 38.9 % MCV (test code = 1005) 79.9 fL MCH (test code = 1006) 26.7 PG MCHC (test code = 1007) 33.4 G/DL RDW (test code = 1038) 16.1 % NEUTROPHILS (test code = 1008) 66.4 % LYMPHOCYTES (test code = 1010) 25.2 % MONOCYTES (test code = 1011) 4.2 % EOSINOPHILS (test code = 1012) 3.9 % BASOPHILS (test code = 1013) 0.3 % PLATELET COUNT (test code = 1015) 302 K/UL CBC W/AUTO [id number] 00:00:00 Test Item Value Reference Range Interpretation Comments WBC (test code = 1001) 7.0 K/UL RBC (test code = 1002) 4.87 M/UL HEMOGLOBIN (test code = 1003) 13.0 G/DL HEMATOCRIT (test code = 1004) 38.9 % MCV (test code = 1005) 79.9 fL MCH (test code = 1006) 26.7 PG MCHC (test code = 1007) 33.4 G/DL RDW (test code = 1038) 16.1 % NEUTROPHILS (test code = 1008) 66.4 % LYMPHOCYTES (test code = 1010) 25.2 % MONOCYTES (test code = 1011) 4.2 % EOSINOPHILS (test code = 1012) 3.9 % BASOPHILS (test code = 1013) 0.3 % PLATELET COUNT (test code = 1015) 302 K/UL COMPREHENSIVE METABOLIC [id number] 00:00:00 Test Item Value Reference Range Interpretation Comments GLUCOSE (test code = 2217) 81 MG/DL BUN (test code = 2208) 21 MG/DL CREATININE (test code = 2214) 0.71 MG/DL eGFR AMER. (test code 113 ML/MIN/1.73 = 30146) eGFR NON- AMER. (test 98 ML/MIN/1.73 code = 33809) CALC BUN/CREAT (test code = 30 RATIO 2235) SODIUM (test code = 2231) 143 MEQ/L POTASSIUM (test code = 2228) 4.4 MEQ/L CHLORIDE (test code = 2215) 100 MEQ/L CARBON DIOXIDE (test code = 24 MEQ/L 2206) CALCIUM (test code = 2209) 9.9 MG/DL PROTEIN, TOTAL (test code = 7.5 G/DL 2228) ALBUMIN (test code = 2201) 4.6 G/DL CALC GLOBULIN (test code = 2.9 G/DL 2239) CALC A/G RATIO (test code = 1.6 RATIO 2234) BILIRUBIN, TOTAL (test code = 0.2 MG/DL 2206) ALKALINE PHOSPHATASE (test 120 U/L code = 2204) AST (test code = 2218) 26 U/L ALT (test code = 2219) 26 U/L LIPID [id number] 00:00:00 Test Item Value Reference Range Interpretation Comments CHOLESTEROL (test code = 2210) 247 MG/DL TRIGLYCERIDES (test code = 2232) 373 MG/DL HDL CHOLESTEROL (test code = 2220) 49 MG/DL CALC LDL CHOL (test code = 2237) 123 MG/DL RISK RATIO LDL/HDL (test code = 2.52 RATIO 2238) THYROID II PROFILE (T3U, T4, T7, TSH)2016-06-27 00:00:00 Test Item Value Reference Range Interpretation Comments T3 UPTAKE (test code = 2817) 27.2 % T4 (THYROXINE) (test code = 2819) 6.4 UG/DL CALCULATED T7 (FTI) (test code = 1.74 6670) TSH (test code = 2821) 3.0 UIU/ML HEMOGLOBIN [id number] 00:00:00 Test Item Value Reference Range Interpretation Comments HEMOGLOBIN A1c (test code = 49724) 7.8 % HEMOGLOBIN [id number] 00:00:00 Test Item Value Reference Range Interpretation Comments HEMOGLOBIN A1c (test code = 14109) 7.8 % HEMOGLOBIN [id number] 00:00:00 Test Item Value Reference Range Interpretation Comments HEMOGLOBIN A1c (test code = 46724) 7.8 % MICROALBUMIN, [id number] 00:00:00 Test Item Value Reference Range Interpretation Comments MICROALBUMIN, RANDOM (test code = 30.7 MG/DL 28916) MICROALBUMIN, [id number] 00:00:00 Test Item Value Reference Range Interpretation Comments MICROALBUMIN, RANDOM (test code = 30.7 MG/DL 89454) MICROALBUMIN, [id number] 00:00:00 Test Item Value Reference Range Interpretation Comments MICROALBUMIN, RANDOM (test code = 30.7 MG/DL 21714) MICROALBUMIN, [id number] 00:00:00 Test Item Value Reference Range Interpretation Comments MICROALBUMIN, RANDOM (test code = 30.7 MG/DL 16357) MICROALBUMIN, [id number] 00:00:00 Test Item Value Reference Range Interpretation Comments MICROALBUMIN, RANDOM (test code = 30.7 MG/DL 73941) MICROALBUMIN, [id number] 00:00:00 Test Item Value Reference Range Interpretation Comments MICROALBUMIN, RANDOM (test code = 30.7 MG/DL 79797) MICROALBUMIN, [id number] 00:00:00 Test Item Value Reference Range Interpretation Comments MICROALBUMIN, RANDOM (test code = 30.7 MG/DL 34125) COMPREHENSIVE METABOLIC [id number] 00:00:00 Test Item Value Reference Range Interpretation Comments GLUCOSE (test code = 2217) 135 MG/DL BUN (test code = 2208) 15 MG/DL CREATININE (test code = 2214) 0.52 MG/DL eGFR AMER. (test code 128 ML/MIN/1.73 = 57900) eGFR NON- AMER. (test 111 ML/MIN/1.73 code = 94275) CALCULATED BUN/CREAT (test 29 RATIO code = 2235) SODIUM (test code = 2231) 138 MEQ/L POTASSIUM (test code = 2228) 4.5 MEQ/L CHLORIDE (test code = 2215) 101 MEQ/L CARBON DIOXIDE (test code = 23 MEQ/L 2205) CALCIUM (test code = 2209) 9.2 MG/DL PROTEIN, TOTAL (test code = 7.4 G/DL 2228) ALBUMIN (test code = 2201) 4.4 G/DL CALCULATED GLOBULIN (test 3.0 G/DL code = 2240) CALCULATED A/G RATIO (test 1.5 RATIO code = 2234) BILIRUBIN, TOTAL (test code = 0.3 MG/DL 2206) ALKALINE PHOSPHATASE (test 117 U/L code = 2204) SGOT (AST) (test code = 2218) 30 U/L SGPT (ALT) (test code = 2219) 41 U/L HEMOGLOBIN [id number] 00:00:00 Test Item Value Reference Range Interpretation Comments HEMOGLOBIN A1c (test code = 02802) 6.9 % HEMOGLOBIN [id number] 00:00:00 Test Item Value Reference Range Interpretation Comments HEMOGLOBIN A1c (test code = 56631) 6.9 % HEMOGLOBIN [id number] 00:00:00 Test Item Value Reference Range Interpretation Comments HEMOGLOBIN A1c (test code = 47674) 6.9 % COMPREHENSIVE METABOLIC [id number] 00:00:00 Test Item Value Reference Range Interpretation Comments GLUCOSE (test code = 2217) 135 MG/DL BUN (test code = 2208) 15 MG/DL CREATININE (test code = 2214) 0.52 MG/DL eGFR AMER. (test code 128 ML/MIN/1.73 = 19098) eGFR NON- AMER. (test 111 ML/MIN/1.73 code = 14500) CALCULATED BUN/CREAT (test 29 RATIO code = 2235) SODIUM (test code = 2231) 138 MEQ/L POTASSIUM (test code = 2228) 4.5 MEQ/L CHLORIDE (test code = 2215) 101 MEQ/L CARBON DIOXIDE (test code = 23 MEQ/L 220) CALCIUM (test code = 2209) 9.2 MG/DL PROTEIN, TOTAL (test code = 7.4 G/DL 2228) ALBUMIN (test code = 2201) 4.4 G/DL CALCULATED GLOBULIN (test 3.0 G/DL code = 2240) CALCULATED A/G RATIO (test 1.5 RATIO code = 2234) BILIRUBIN, TOTAL (test code = 0.3 MG/DL 2206) ALKALINE PHOSPHATASE (test 117 U/L code = 2204) SGOT (AST) (test code = 2218) 30 U/L SGPT (ALT) (test code = 2219) 41 U/L COMPREHENSIVE METABOLIC [id number] 00:00:00 Test Item Value Reference Range Interpretation Comments GLUCOSE (test code = 2217) 135 MG/DL BUN (test code = 2208) 15 MG/DL CREATININE (test code = 2214) 0.52 MG/DL eGFR AMER. (test code 128 ML/MIN/1.73 = 95962) eGFR NON- AMER. (test 111 ML/MIN/1.73 code = 64379) CALCULATED BUN/CREAT (test 29 RATIO code = 2235) SODIUM (test code = 2231) 138 MEQ/L POTASSIUM (test code = 2228) 4.5 MEQ/L CHLORIDE (test code = 2215) 101 MEQ/L CARBON DIOXIDE (test code = 23 MEQ/L 220) CALCIUM (test code = 2209) 9.2 MG/DL PROTEIN, TOTAL (test code = 7.4 G/DL 2228) ALBUMIN (test code = 2201) 4.4 G/DL CALCULATED GLOBULIN (test 3.0 G/DL code = 2240) CALCULATED A/G RATIO (test 1.5 RATIO code = 2234) BILIRUBIN, TOTAL (test code = 0.3 MG/DL 2206) ALKALINE PHOSPHATASE (test 117 U/L code = 2204) SGOT (AST) (test code = 2218) 30 U/L SGPT (ALT) (test code = 2219) 41 U/L HEMOGLOBIN [id number] 00:00:00 Test Item Value Reference Range Interpretation Comments HEMOGLOBIN A1c (test code = 50569) 6.9 % HEMOGLOBIN [id number] 00:00:00 Test Item Value Reference Range Interpretation Comments HEMOGLOBIN A1c (test code = 54946) 6.9 % HEMOGLOBIN [id number] 00:00:00 Test Item Value Reference Range Interpretation Comments HEMOGLOBIN A1c (test code = 49356) 6.9 % COMPREHENSIVE METABOLIC [id number] 00:00:00 Test Item Value Reference Range Interpretation Comments GLUCOSE (test code = 2217) 135 MG/DL BUN (test code = 2208) 15 MG/DL CREATININE (test code = 2214) 0.52 MG/DL eGFR AMER. (test code 128 ML/MIN/1.73 = 91762) eGFR NON- AMER. (test 111 ML/MIN/1.73 code = 31314) CALCULATED BUN/CREAT (test 29 RATIO code = 2235) SODIUM (test code = 2231) 138 MEQ/L POTASSIUM (test code = 2228) 4.5 MEQ/L CHLORIDE (test code = 2215) 101 MEQ/L CARBON DIOXIDE (test code = 23 MEQ/L 2205) CALCIUM (test code = 2209) 9.2 MG/DL PROTEIN, TOTAL (test code = 7.4 G/DL 2228) ALBUMIN (test code = 2201) 4.4 G/DL CALCULATED GLOBULIN (test 3.0 G/DL code = 2240) CALCULATED A/G RATIO (test 1.5 RATIO code = 2234) BILIRUBIN, TOTAL (test code = 0.3 MG/DL 2206) ALKALINE PHOSPHATASE (test 117 U/L code = 2204) SGOT (AST) (test code = 2218) 30 U/L SGPT (ALT) (test code = 2219) 41 U/L COMPREHENSIVE METABOLIC [id number] 00:00:00 Test Item Value Reference Range Interpretation Comments GLUCOSE (test code = 2217) 135 MG/DL BUN (test code = 2208) 15 MG/DL CREATININE (test code = 2214) 0.52 MG/DL eGFR AMER. (test code 128 ML/MIN/1.73 = 32123) eGFR NON- AMER. (test 111 ML/MIN/1.73 code = 39442) CALCULATED BUN/CREAT (test 29 RATIO code = 2235) SODIUM (test code = 2231) 138 MEQ/L POTASSIUM (test code = 2228) 4.5 MEQ/L CHLORIDE (test code = 2215) 101 MEQ/L CARBON DIOXIDE (test code = 23 MEQ/L 2205) CALCIUM (test code = 2209) 9.2 MG/DL PROTEIN, TOTAL (test code = 7.4 G/DL 2228) ALBUMIN (test code = 2201) 4.4 G/DL CALCULATED GLOBULIN (test 3.0 G/DL code = 2240) CALCULATED A/G RATIO (test 1.5 RATIO code = 2234) BILIRUBIN, TOTAL (test code = 0.3 MG/DL 2206) ALKALINE PHOSPHATASE (test 117 U/L code = 2204) SGOT (AST) (test code = 2218) 30 U/L SGPT (ALT) (test code = 2219) 41 U/L HEMOGLOBIN [id number] 00:00:00 Test Item Value Reference Range Interpretation Comments HEMOGLOBIN A1c (test code = 78166) 6.9 % HEMOGLOBIN [id number] 00:00:00 Test Item Value Reference Range Interpretation Comments HEMOGLOBIN A1c (test code = 83971) 6.9 % COMPREHENSIVE METABOLIC [id number] 00:00:00 Test Item Value Reference Range Interpretation Comments GLUCOSE (test code = 2217) 135 MG/DL BUN (test code = 2208) 15 MG/DL CREATININE (test code = 2214) 0.52 MG/DL eGFR AMER. (test code 128 ML/MIN/1.73 = 69576) eGFR NON- AMER. (test 111 ML/MIN/1.73 code = 90191) CALCULATED BUN/CREAT (test 29 RATIO code = 2235) SODIUM (test code = 2231) 138 MEQ/L POTASSIUM (test code = 2228) 4.5 MEQ/L CHLORIDE (test code = 2215) 101 MEQ/L CARBON DIOXIDE (test code = 23 MEQ/L 2205) CALCIUM (test code = 2209) 9.2 MG/DL PROTEIN, TOTAL (test code = 7.4 G/DL 2228) ALBUMIN (test code = 2201) 4.4 G/DL CALCULATED GLOBULIN (test 3.0 G/DL code = 2240) CALCULATED A/G RATIO (test 1.5 RATIO code = 2234) BILIRUBIN, TOTAL (test code = 0.3 MG/DL 2206) ALKALINE PHOSPHATASE (test 117 U/L code = 220) SGOT (AST) (test code = 221) 30 U/L SGPT (ALT) (test code = 2219) 41 U/L HEMOGLOBIN [id number] 00:00:00 Test Item Value Reference Range Interpretation Comments HEMOGLOBIN A1c (test code = 60520) 6.9 % HEMOGLOBIN [id number] 00:00:00 Test Item Value Reference Range Interpretation Comments HEMOGLOBIN A1c (test code = 60653) 6.9 % HEMOGLOBIN [id number] 00:00:00 Test Item Value Reference Range Interpretation Comments HEMOGLOBIN A1c (test code = 44574) 6.9 % COMPREHENSIVE METABOLIC [id number] 00:00:00 Test Item Value Reference Range Interpretation Comments GLUCOSE (test code = 2217) 135 MG/DL BUN (test code = 2208) 15 MG/DL CREATININE (test code = 2214) 0.52 MG/DL eGFR AMER. (test code 128 ML/MIN/1.73 = 07467) eGFR NON- AMER. (test 111 ML/MIN/1.73 code = 90060) CALCULATED BUN/CREAT (test 29 RATIO code = 2235) SODIUM (test code = 2231) 138 MEQ/L POTASSIUM (test code = 2228) 4.5 MEQ/L CHLORIDE (test code = 2215) 101 MEQ/L CARBON DIOXIDE (test code = 23 MEQ/L 2205) CALCIUM (test code = 2209) 9.2 MG/DL PROTEIN, TOTAL (test code = 7.4 G/DL 2228) ALBUMIN (test code = 2201) 4.4 G/DL CALCULATED GLOBULIN (test 3.0 G/DL code = 2240) CALCULATED A/G RATIO (test 1.5 RATIO code = 2234) BILIRUBIN, TOTAL (test code = 0.3 MG/DL 2206) ALKALINE PHOSPHATASE (test 117 U/L code = 2204) SGOT (AST) (test code = 2218) 30 U/L SGPT (ALT) (test code = 2219) 41 U/L FSH + LH [id number] 00:00:00 Test Item Value Reference Range Interpretation Comments FOLLICLE STIM HORMONE (test code 31.4 MIU/ML = 2700) FSH INTERPRETATION: (test code = (NOTE) 04901) LUTEINIZING HORMONE (test code = 18.8 MIU/ML 2776) LH INTERPRETATION: (test code = (NOTE) 48762) FSH + LH [id number] 00:00:00 Test Item Value Reference Range Interpretation Comments FOLLICLE STIM HORMONE (test code 31.4 MIU/ML = 2700) FSH INTERPRETATION: (test code = (NOTE) 22469) LUTEINIZING HORMONE (test code = 18.8 MIU/ML 2776) LH INTERPRETATION: (test code = (NOTE) 66523) THYROID II PROFILE (T3U, T4, T7, TSH)2015-12-15 00:00:00 Test Item Value Reference Range Interpretation Comments T3 UPTAKE (test code = 2817) 25.9 % T4 (THYROXINE) (test code = 2819) 6.1 UG/DL CALCULATED T7 (FTI) (test code = 1.58 2820) TSH (test code = 2821) 1.5 UIU/ML THYROID II PROFILE (T3U, T4, T7, TSH)2015-12-15 00:00:00 Test Item Value Reference Range Interpretation Comments T3 UPTAKE (test code = 2817) 25.9 % T4 (THYROXINE) (test code = 2819) 6.1 UG/DL CALCULATED T7 (FTI) (test code = 1.58 2820) TSH (test code = 2821) 1.5 UIU/ML FSH + LH [id number] 00:00:00 Test Item Value Reference Range Interpretation Comments FOLLICLE STIM HORMONE (test code 31.4 MIU/ML = 2700) FSH INTERPRETATION: (test code = (NOTE) 64606) LUTEINIZING HORMONE (test code = 18.8 MIU/ML 2776) LH INTERPRETATION: (test code = (NOTE) 76620) FSH + LH [id number] 00:00:00 Test Item Value Reference Range Interpretation Comments FOLLICLE STIM HORMONE (test code 31.4 MIU/ML = 2700) FSH INTERPRETATION: (test code = (NOTE) 41246) LUTEINIZING HORMONE (test code = 18.8 MIU/ML 2776) LH INTERPRETATION: (test code = (NOTE) 44621) THYROID II PROFILE (T3U, T4, T7, TSH)2015-12-15 00:00:00 Test Item Value Reference Range Interpretation Comments T3 UPTAKE (test code = 2817) 25.9 % T4 (THYROXINE) (test code = 2819) 6.1 UG/DL CALCULATED T7 (FTI) (test code = 1.58 2820) TSH (test code = 2821) 1.5 UIU/ML THYROID II PROFILE (T3U, T4, T7, TSH)2015-12-15 00:00:00 Test Item Value Reference Range Interpretation Comments T3 UPTAKE (test code = 2817) 25.9 % T4 (THYROXINE) (test code = 2819) 6.1 UG/DL CALCULATED T7 (FTI) (test code = 1.58 2820) TSH (test code = 2821) 1.5 UIU/ML FSH + LH [id number] 00:00:00 Test Item Value Reference Range Interpretation Comments FOLLICLE STIM HORMONE (test code 31.4 MIU/ML = 2700) FSH INTERPRETATION: (test code = (NOTE) 36953) LUTEINIZING HORMONE (test code = 18.8 MIU/ML 2776) LH INTERPRETATION: (test code = (NOTE) 00193) THYROID II PROFILE (T3U, T4, T7, TSH)2015-12-15 00:00:00 Test Item Value Reference Range Interpretation Comments T3 UPTAKE (test code = 2817) 25.9 % T4 (THYROXINE) (test code = 2819) 6.1 UG/DL CALCULATED T7 (FTI) (test code = 1.58 2820) TSH (test code = 2821) 1.5 UIU/ML FSH + LH [id number] 00:00:00 Test Item Value Reference Range Interpretation Comments FOLLICLE STIM HORMONE (test code 31.4 MIU/ML = 2700) FSH INTERPRETATION: (test code = (NOTE) 22236) LUTEINIZING HORMONE (test code = 18.8 MIU/ML 2776) LH INTERPRETATION: (test code = (NOTE) 48221) FSH + LH [id number] 00:00:00 Test Item Value Reference Range Interpretation Comments FOLLICLE STIM HORMONE (test code 31.4 MIU/ML = 2700) FSH INTERPRETATION: (test code = (NOTE) 98387) LUTEINIZING HORMONE (test code = 18.8 MIU/ML 2776) LH INTERPRETATION: (test code = (NOTE) 85952) THYROID II PROFILE (T3U, T4, T7, TSH)2015-12-15 00:00:00 Test Item Value Reference Range Interpretation Comments T3 UPTAKE (test code = 2817) 25.9 % T4 (THYROXINE) (test code = 2819) 6.1 UG/DL CALCULATED T7 (FTI) (test code = 1.58 2820) TSH (test code = 2821) 1.5 UIU/ML THYROID II PROFILE (T3U, T4, T7, TSH)2015-12-15 00:00:00 Test Item Value Reference Range Interpretation Comments T3 UPTAKE (test code = 2817) 25.9 % T4 (THYROXINE) (test code = 2819) 6.1 UG/DL CALCULATED T7 (FTI) (test code = 1.58 2820) TSH (test code = 2821) 1.5 UIU/ML PAP TEST, THINPREP, [id number] 00:00:00 Test Item Value Reference Range Interpretation Comments SOURCE: (test code = A) Cervical 8001) SLIDES: (test code = 1 8011) LMP: (test code = 8021) SPECIMEN ADEQUACY: (NOTE) (test code = 16850) INTERPRETATION: (test NO EPITHELIAL code = 27447) ABNORMALITY SEE BELOW CENTRAL SUPPLY TECHNICIAN SUPERVISOR: FELISA Ames(ASCP)IAC (test code = 8101) QC TECHNOLOGIST: Shahid (test code = 8111) NYDIA Rasmussen(ASCP),IAC LOCATION: (test code (NOTE) = 88180) CPT: (test code = (NOTE) 8140) PAP TEST, THINPREP, [id number] 00:00:00 Test Item Value Reference Range Interpretation Comments SOURCE: (test code = A) Cervical 8001) SLIDES: (test code = 1 8011) LMP: (test code = 8021) SPECIMEN ADEQUACY: (NOTE) (test code = 07344) INTERPRETATION: (test NO EPITHELIAL code = 88960) ABNORMALITY SEE BELOW CENTRAL SUPPLY TECHNICIAN SUPERVISOR: FELISA Ames(ASCP)IAC (test code = 8101) QC TECHNOLOGIST: Shahid (test code = 8111) Euperio,SCT(ASCP),IAC LOCATION: (test code (NOTE) = 56126) CPT: (test code = (NOTE) 8140) PAP TEST, THINPREP, [id number] 00:00:00 Test Item Value Reference Range Interpretation Comments SOURCE: (test code = A) Cervical 8001) SLIDES: (test code = 1 8011) LMP: (test code = 80) SPECIMEN ADEQUACY: (NOTE) (test code = 36911) INTERPRETATION: (test NO EPITHELIAL code = 71333) ABNORMALITY SEE BELOW CENTRAL SUPPLY TECHNICIAN SUPERVISOR: FELISA Ames(ASCP)IAC (test code = 8101) QC TECHNOLOGIST: Shahid (test code = 8111) Euperhaylie,SCT(ASCP),IAC LOCATION: (test code (NOTE) = 49357) CPT: (test code = (NOTE) 8140) PAP TEST, THINPREP, [id number] 00:00:00 Test Item Value Reference Range Interpretation Comments SOURCE: (test code = A) Cervical 8001) SLIDES: (test code = 1 8011) LMP: (test code = 80) SPECIMEN ADEQUACY: (NOTE) (test code = 80573) INTERPRETATION: (test NO EPITHELIAL code = 66555) ABNORMALITY SEE BELOW CENTRAL SUPPLY TECHNICIAN SUPERVISOR: FELISA Ames(ASCP)IAC (test code = 8101) QC TECHNOLOGIST: Shahid (test code = 8111) Euperhaylie,SCT(ASCP),IAC LOCATION: (test code (NOTE) = 68410) CPT: (test code = (NOTE) 8140) PAP TEST, THINPREP, [id number] 00:00:00 Test Item Value Reference Range Interpretation Comments SOURCE: (test code = A) Cervical 8001) SLIDES: (test code = 1 8011) LMP: (test code = 8021) SPECIMEN ADEQUACY: (NOTE) (test code = 08673) INTERPRETATION: (test NO EPITHELIAL code = 24795) ABNORMALITY SEE BELOW CENTRAL SUPPLY TECHNICIAN SUPERVISOR: FELISA Ames(ASCP)IAC (test code = 8101) QC TECHNOLOGIST: Shahid (test code = 8111) Euperhaylie,SCT(ASCP),IAC LOCATION: (test code (NOTE) = 75907) CPT: (test code = (NOTE) 8140) PAP TEST, THINPREP, [id number] 00:00:00 Test Item Value Reference Range Interpretation Comments SOURCE: (test code = A) Cervical 8001) SLIDES: (test code = 1 8011) LMP: (test code = 8021) SPECIMEN ADEQUACY: (NOTE) (test code = 78707) INTERPRETATION: (test NO EPITHELIAL code = 34635) ABNORMALITY SEE BELOW CENTRAL SUPPLY TECHNICIAN SUPERVISOR: FELISA Ames(ASCP)IAC (test code = 8101) QC TECHNOLOGIST: Shahid (test code = 8111) ValerySCT(ASCP),IAC LOCATION: (test code (NOTE) = 47012) CPT: (test code = (NOTE) 8140) PAP TEST, THINPREP, [id number] 00:00:00 Test Item Value Reference Range Interpretation Comments SOURCE: (test code = A) Cervical 8001) SLIDES: (test code = 1 8011) LMP: (test code = 8021) SPECIMEN ADEQUACY: (NOTE) (test code = 01940) INTERPRETATION: (test NO EPITHELIAL code = 90188) ABNORMALITY SEE BELOW CENTRAL SUPPLY TECHNICIAN SUPERVISOR: FELISA Ames(ASCP)IAC (test code = 8101) QC TECHNOLOGIST: Shahid (test code = 8111) ValerySCT(ASCP),IAC LOCATION: (test code (NOTE) = 62826) CPT: (test code = (NOTE) 8140) HPV HIGH RISK WITH GENOTYPE, [id number] 00:00:00 Test Item Value Reference Range Interpretation Comments HPV HIGH RISK INTERP (test code = NEGATIVE 39021) HPV 16 (test code = 55214) NEGATIVE HPV 18 (test code = 62815) NEGATIVE HPV, HR, OTHER GENOTYPES (test code NEGATIVE = 35588) HPV HIGH RISK WITH GENOTYPE, [id number] 00:00:00 Test Item Value Reference Range Interpretation Comments HPV HIGH RISK INTERP (test code = NEGATIVE 89182) HPV 16 (test code = 16186) NEGATIVE HPV 18 (test code = 97879) NEGATIVE HPV, HR, OTHER GENOTYPES (test code NEGATIVE = 10605) HPV HIGH RISK WITH GENOTYPE, [id number] 00:00:00 Test Item Value Reference Range Interpretation Comments HPV HIGH RISK INTERP (test code = NEGATIVE 79298) HPV 16 (test code = 75782) NEGATIVE HPV 18 (test code = 29177) NEGATIVE HPV, HR, OTHER GENOTYPES (test code NEGATIVE = 62880) HPV HIGH RISK WITH GENOTYPE, [id number] 00:00:00 Test Item Value Reference Range Interpretation Comments HPV HIGH RISK INTERP (test code = NEGATIVE 06376) HPV 16 (test code = 67189) NEGATIVE HPV 18 (test code = 13153) NEGATIVE HPV, HR, OTHER GENOTYPES (test code NEGATIVE = 09775) HPV HIGH RISK WITH GENOTYPE, [id number] 00:00:00 Test Item Value Reference Range Interpretation Comments HPV HIGH RISK INTERP (test code = NEGATIVE 87231) HPV 16 (test code = 19234) NEGATIVE HPV 18 (test code = 45107) NEGATIVE HPV, HR, OTHER GENOTYPES (test code NEGATIVE = 54001) HPV HIGH RISK WITH GENOTYPE, [id number] 00:00:00 Test Item Value Reference Range Interpretation Comments HPV HIGH RISK INTERP (test code = NEGATIVE 47363) HPV 16 (test code = 32192) NEGATIVE HPV 18 (test code = 61038) NEGATIVE HPV, HR, OTHER GENOTYPES (test code NEGATIVE = 32292) HPV HIGH RISK WITH GENOTYPE, [id number] 00:00:00 Test Item Value Reference Range Interpretation Comments HPV HIGH RISK INTERP (test code = NEGATIVE 49725) HPV 16 (test code = 90939) NEGATIVE HPV 18 (test code = 70716) NEGATIVE HPV, HR, OTHER GENOTYPES (test code NEGATIVE = 67467)
--- NOTE | 2022-08-18 21:51 | EDPHYS ---
Physician Documentation [facility] Name: Mary Jane Jacobsen Age: 57 yrs Sex: Female : 1965 Arrival Date: 08/18/2022 Time: 21:05 Bed 24 Private MD: ED Physician Miles Rodriguez HPI: 08/18 21:44 This 57 yrs old Female presents to ER via Ambulatory with complaints of PAIN sherri IN CENTER OF CHEST. 21:44 The patient or guardian reports chest pain that is located primarily in the substernal sherri area. Onset: 30 day(s) ago. The pain does not radiate. Associated signs and symptoms: Pertinent positives: nausea. The chest pain is described as a pressure, sharp. Duration: The patient or guardian reports multiple episodes, that wax and wane. Modifying factors: The symptoms are alleviated by nothing. the symptoms are aggravated by activity. Severity of pain: At its worst the pain was mild moderate in the emergency department the pain has improved markedly. The patient has experienced similar episodes in the past, multiple times. Historical: - Allergies: 21:15 NKDA; as6 - PMHx: 21:15 Bipolar disorder; Diabetes - NIDDM; High Cholesterol; Hypertension; Schizophrenia; as6 Seizures; - PSHx: 21:15 None; as6 - Immunization history:: Client reports receiving the 2nd dose of the Covid vaccine, moderna. - Social history:: Smoking status: Patient denies any tobacco usage or history of. - Family history:: not pertinent. ROS: 21:44 Constitutional: Negative for fever, chills, and weight loss, Eyes: Negative for injury, sherri pain, redness, and discharge, ENT: Negative for injury, pain, and discharge, Neck: Negative for injury, pain, and swelling, Respiratory: Negative for shortness of breath, cough, wheezing, and pleuritic chest pain, Abdomen/GI: Negative for abdominal pain, nausea, vomiting, diarrhea, and constipation, Back: Negative for injury and pain, : Negative for injury, bleeding, discharge, and swelling, MS/Extremity: Negative for injury and deformity, Skin: Negative for injury, rash, and discoloration, Neuro: Negative for headache, weakness, numbness, tingling, and seizure, Psych: Negative for depression, anxiety, suicide ideation, homicidal ideation, and hallucinations, Allergy/Immunology: Negative for hives, rash, and allergies, Endocrine: Negative for neck swelling, polydipsia, polyuria, polyphagia, and marked weight changes, Hematologic/Lymphatic: Negative for swollen nodes, abnormal bleeding, and unusual bruising. 21:44 Cardiovascular: Positive for chest pain, of the anterior aspect of right upper chest, anterior aspect of left upper chest and mid-sternal area. Exam: 21:44 Constitutional: This is a well developed, well nourished patient who is awake, alert, sherri and in no acute distress. Head/Face: Normocephalic, atraumatic. Eyes: Pupils equal round and reactive to light, extra-ocular motions intact. Lids and lashes normal. Conjunctiva and sclera are non-icteric and not injected. Cornea within normal limits. Periorbital areas with no swelling, redness, or edema. ENT: Nares patent. No nasal discharge, no septal abnormalities noted. Tympanic membranes are normal and external auditory canals are clear. Oropharynx with no redness, swelling, or masses, exudates, or evidence of obstruction, uvula midline. Mucous membranes moist. Neck: Trachea midline, no thyromegaly or masses palpated, and no cervical lymphadenopathy. Supple, full range of motion without nuchal rigidity, or vertebral point tenderness. No Meningismus. Chest/axilla: Normal chest wall appearance and motion. Nontender with no deformity. No lesions are appreciated. Cardiovascular: Regular rate and rhythm with a normal S1 and S2. No gallops, murmurs, or rubs. Normal PMI, no JVD. No pulse deficits. Respiratory: Lungs have equal breath sounds bilaterally, clear to auscultation and percussion. No rales, rhonchi or wheezes noted. No increased work of breathing, no retractions or nasal flaring. Abdomen/GI: Soft, non-tender, with normal bowel sounds. No distension or tympany. No guarding or rebound. No evidence of tenderness throughout. Back: No spinal tenderness. No costovertebral tenderness. Full range of motion. Skin: Warm, dry with normal turgor. Normal color with no rashes, no lesions, and no evidence of cellulitis. MS/ Extremity: Pulses equal, no cyanosis. Neurovascular intact. Full, normal range of motion. Neuro: Awake and alert, GCS 15, oriented to person, place, time, and situation. Cranial nerves II-XII grossly intact. Motor strength 5/5 in all extremities. Sensory grossly intact. Cerebellar exam normal. Normal gait. Psych: Awake, alert, with orientation to person, place and time. Behavior, mood, and affect are within normal limits. 21:44 ECG was reviewed by the Attending Physician. Vital Signs: 21:11 BP 171 / 105; Pulse 108; Resp 18 S; Temp 99.4(O); Pulse Ox 97% on R/A; Weight 83.91 kg as6 (R); Height 5 ft. 5 in. (165.10 cm) (R); Pain 0/10; 21:21 BP 171 / 105; Pulse 108; Resp 18; Pulse Ox 97% on R/A; ha1 22:20 BP 143 / 94; Pulse 105; Resp 18; Pulse Ox 98% on R/A; ha1 21:11 Body Mass Index 30.79 (83.91 kg, 165.10 cm) as6 MDM: 21:23 Patient medically screened. sherri 21:46 Differential diagnosis: abnormal EKG, acute myocardial infarction, acute pericarditis, sherri anxiety, coronary artery disease chest wall pain, Cholelithiasis esophagitis, pancreatitis, peptic ulcer disease, pneumonia, pulmonary embolus, stable angina, unstable angina. HEART Score: History: Moderately Suspicious (1), ECG: Non specific repolarization disturbance / LBTB / PM (1), Age: > 45 and < 65 years (1), Risk Factors: > or = 3 Risk factors for atherosclerotic disease (2), [Hypercholesterolemia] [Hypertension] [DM] [+ Family HX] [Obesity] Troponin: < or = 1 x Normal Limit (0). The patient was given aspirin in the Emergency Department. The patient's deep vein thrombosis risk score was calculated as follows: Total Score: 0. This patient was found to be at low risk for a deep vein thrombosis by using the Well's assessment criteria. The patient's pulmonary embolism risk score was calculated as follows: Total Score: 0-2 points. This patient was found to be at low risk for a pulmonary embolism by using the Well's assessment criteria. GUERLINE Risk Score: 1 - Three or more CAD risk factors, TOTAL SCORE = 1. Data reviewed: vital signs, nurses notes, lab test result(s), EKG, radiologic studies, CT scan, plain films. Data interpreted: alarm security or surveillance monitor: rate is 108 beats/min, rhythm is regular, Pulse oximetry: on room air is 97 %. Test interpretation: by ED physician or midlevel provider: ECG, plain radiologic studies. Counseling: I had a detailed discussion with the patient and/or guardian regarding: the historical points, exam findings, and any diagnostic results supporting the discharge/admit diagnosis, lab results, radiology results, the need for further work-up and treatment in the hospital. 08/18 21:43 Order name: Basic Metabolic Panel [facility] 08/18 21:43 Order name: CBC with Diff [facility] 08/18 21:43 Order name: LFT's [facility] 08/18 21:43 Order name: Magnesium [facility] 08/18 21:43 Order name: NT PRO-BNP [facility] 08/18 21:43 Order name: PT-INR [facility] 08/18 21:43 Order name: Troponin HS [facility] 08/18 21:43 Order name: Lipase [facility] 08/18 21:43 Order name: SARS RAPID [facility] 08/18 22:34 Order name: CBC with Automated Diff; Complete Time: 22:34 EDMS 08/18 22:35 Order name: SARS-COV-2 Antigen Rapid; Complete Time: 22:57 EDMS 08/18 22:52 Order name: Protime (+INR); Complete Time: 22:57 EDMS 08/18 23:01 Order name: Basic Metabolic Panel; Complete Time: 02:00 EDMS 08/18 23:01 Order name: Liver (Hepatic) Function; Complete Time: 02:00 EDMS 08/18 23:01 Order name: Troponin High Sensitivity; Complete Time: 02:00 EDMS 08/18 23:01 Order name: NT PRO-BNP; Complete Time: 02:00 EDMS 08/18 23:01 Order name: Magnesium; Complete Time: 02:00 EDMS 08/18 23:01 Order name: Lipase; Complete Time: 02:00 EDMS 08/18 23:08 Order name: Lipid Profile [facility] 08/18 23:38 Order name: Lipid Profile; Complete Time: 02:00 EDMS 08/19 00:29 Order name: LDL, Direct; Complete Time: 02:00 EDMS 08/19 05:50 Order name: CBC with Automated Diff [facility] 08/19 06:24 Order name: Hemoglobin A1c [facility] 08/19 06:24 Order name: Comprehensive Metabolic Panel [facility] 08/19 06:25 Order name: Phosphorus [facility] 08/19 06:26 Order name: Troponin High Sensitivity [facility] 08/19 06:26 Order name: Triglycerides Level [facility] 08/19 06:26 Order name: Magnesium [facility] 08/19 06:26 Order name: Lipase [facility] 08/19 06:42 Order name: LDL, Direct [facility] 08/18 21:43 Order name: XRAY Chest (1 view) [facility] 08/18 21:43 Order name: EKG; Complete Time: 21:43 [facility] 08/18 21:43 Order name: Cardiac monitoring; Complete Time: 02:39 [facility] 08/18 21:43 Order name: EKG - Nurse/Tech; Complete Time: 02:39 [facility] 08/18 21:43 Order name: IV Saline Lock; Complete Time: 02:39 [facility] 08/18 21:43 Order name: Labs collected and sent; Complete Time: 02:39 [facility] 08/18 21:43 Order name: O2 Per Protocol; Complete Time: 02:39 [facility] 08/18 21:43 Order name: O2 Sat Monitoring; Complete Time: 02:39 [facility] 08/18 21:43 Order name: US Abdomen Limited [facility] 08/18 21:43 Order name: CT Chest For PE Angio [facility] 08/18 22:36 Order name: RAD; Complete Time: 22:57 [facility] 08/18 23:07 Order name: CT Abd/Pelvis - IV Contrast Only [facility] 08/19 07:54 Order name: Glucose, Ancillary Testing [facility] 08/19 08:14 Order name: US [facility] EC:44 Rate is 113 beats/min. Rhythm is regular. QRS [place] is Normal. [place] interval is normal. [facility] QRS interval is normal. QT interval is normal. No Q waves. T waves are Normal. Clinical impression: Sinus tachycardia and No evidence of ischemia. Interpreted by me. Reviewed by me. Administered Medications: 22:18 Drug: Aspirin Chewable Tablet 324 mg Route: PO; [facility] 08/19 00:01 Follow up: Response: No adverse reaction [facility] 08/18 22:18 Drug: Lopressor (metoprolol TARTRATE) 50 mg Route: PO; 1 08/19 00:00 Follow up: Response: No adverse reaction [facility] 08/18 22:30 Drug: NS 0.9% 500 ml Route: IV; Rate: bolus; Site: right forearm; kb3 23:45 Follow up: Response: No adverse reaction; IV Status: Completed infusion; IV Intake: kb3 500ml 23:08 Drug: morphine 2 mg Route: IVP; Infused Over: 4 mins; Site: right forearm; ha1 08/19 00:00 Follow up: Response: No adverse reaction; Pain is decreased kb3 08/18 23:08 Drug: Zofran (Ondansetron) 4 mg Route: IVP; Site: right forearm; ha1 23:59 Follow up: Response: No adverse reaction; Nausea is decreased kb3 23:08 Drug: Lovenox (enoxaparin) 80 mg Route: Sub-Q; Site: right lower abdomen; ha1 23:59 Follow up: Response: No adverse reaction kb3 23:09 Drug: Pepcid (famotidine) 20 mg Route: IVP; Site: left forearm; ha1 08/19 00:01 Follow up: Response: No adverse reaction 3 08/18 23:45 Drug: NS 0.9% 1000 ml Route: IV; Rate: 125 ml/hr; Site: right forearm; kb3 23:56 Drug: Insulin Regular Human 5 units {Co-Signature: alexa (Chyna Conner RN).} Route: Sub-Q; kd3 Site: abdomen; 23:57 Drug: Insulin Regular Human 7 units {Co-Signature: alexa (Chyna Conner RN).} Route: IVP; kb3 Site: right antecubital; 23:58 Drug: NS 0.9% 1000 ml Route: IV; Rate: 1 bolus; Site: right wrist; kb3 Disposition Summary: 08/18/22 21:50 Hospitalization Ordered Provider: Thor Causey sherri Condition: Fair sherri Problem: new sherri Symptoms: have improved sherri Bed/Room Type: Standard sherri Hospitalization Status: Inpatient Admission(08/18/22 23:10) sherri Location: Telemetry/MedSurg (Inpatient)(08/19/22 08:03) bd Room Assignment: 205(08/19/22 08:03) bd Diagnosis - Chest pain, unspecified sherri - Essential (primary) hypertension sherri - Type 2 diabetes mellitus with hyperglycemia - uncontrolled(08/18/22 23:10) sherri - Acute kidney failure, unspecified sherri - Other hyperlipidemia - hypertriglyceridemia sherri Forms: - Medication Reconciliation Form sherri - SBAR form sherri Signatures: Dispatcher [employer] EDKarla Valenzuela Corey, MD MD cha Garcia, Cindy RN Leonel Casey, RN RN as6 Julita Meléndez, RN RN kd3 Chyna Conner RN RN ha1 Ely Manzo RN RN juan [email or web address] Leanne Floyd PA-C PA-C sb4 Chyna Conner RN ha1 Corrections: (The following items were deleted from the chart) 23:10 21:50 Observation sherri sherri 23:10 21:50 Telemetry/MedSurg (observation) sherri sherri 23:10 21:50 sherri sherri 23:10 21:50 Type 2 diabetes mellitus with hyperglycemia sherri sherri 08/19 00:43 08/18 23:10 Telemetry/MedSurg (Inpatient) sherri cg 08/19 00:43 10 23:10 sherri cg 08/19 08:03 00:43 [facility] ER HOLD cg bd 08: 00:43 ERHOLD- cg bd
--- NOTE | 2022-08-18 21:51 | ER ---
Nurse's Notes [facility] Name: Mary Jane Jacobsen Age: 57 yrs Sex: Female : 1965 Arrival Date: 08/18/2022 Time: 21:05 Bed 24 Private MD: Diagnosis: Chest pain, unspecified;Essential (primary) hypertension;Type 2 diabetes mellitus with hyperglycemia-uncontrolled;Acute kidney failure, unspecified;Other hyperlipidemia-hypertriglyceridemia Presentation: 08/18 21:11 Chief complaint: Patient states: "I have a severe chest pain in the center of my chest. as6 it's been going on for about a month but the last few days it has gotten worse. the pain comes and goes". Coronavirus screen: At this time, the client does not indicate any symptoms associated with coronavirus-19. Ebola Screen: No symptoms or risks identified at this time. Initial Sepsis Screen: Does the patient meet any 2 criteria? No. Patient's initial sepsis screen is negative. Does the patient have a suspected source of infection? No. Patient's initial sepsis screen is negative. Risk Assessment: Do you want to hurt yourself or someone else? Patient reports no desire to harm self or others. Onset of symptoms was July 17, 2022. 21:11 Method Of Arrival: Ambulatory as6 21:11 Acuity: MILLY 3 as6 Triage Assessment: 21:16 General: Appears in no apparent distress. Behavior is calm, cooperative. Pain: Denies as6 pain. Historical: - Allergies: 21:15 NKDA; as6 - PMHx: 21:15 Bipolar disorder; Diabetes - NIDDM; High Cholesterol; Hypertension; Schizophrenia; as6 Seizures; - PSHx: 21:15 None; as6 - Immunization history:: Client reports receiving the 2nd dose of the Covid vaccine, moderna. - Social history:: Smoking status: Patient denies any tobacco usage or history of. - Family history:: not pertinent. Assessment: 21:21 General: Appears in no apparent distress. Behavior is calm, cooperative. Pain: ha1 Complains of pain in chest Pain does not radiate. Pain at worst was 9 out of 10 on a pain scale. Is intermittent. 21:21 Neuro: Level of Consciousness is awake, alert, obeys commands, Oriented to person, ha1 place, time, situation. Cardiovascular: Patient's skin is warm and dry. Rhythm is sinus tachycardia Chest pain. Respiratory: Airway is patent Trachea midline Respiratory effort is even, unlabored, Respiratory pattern is regular, symmetrical. Musculoskeletal: Circulation, motion, and sensation intact. Range of motion: intact in all extremities, limited in all extremities. 22:29 Reassessment: Patient and/or family updated on plan of care and expected duration. Pain ha1 level reassessed. Patient is alert, oriented x 3, equal unlabored respirations, skin warm/dry/pink. 08/19 00:03 General: Received care of pt from Chyna ALONSO. PT is AAO x4, self-transferred from [facility] stretcher to bed in room 24 without difficulty. Pt reports feeling better than when she arrived. Reports pain in the epigastric area/lower chest x1 month. Reports "it feels like food gets stuck every time I eat,". Vital Signs: 08/18 21:11 BP 171 / 105; Pulse 108; Resp 18 S; Temp 99.4(O); Pulse Ox 97% on R/A; Weight 83.91 kg as6 (R); Height 5 ft. 5 in. (165.10 cm) (R); Pain 0/10; 21:21 BP 171 / 105; Pulse 108; Resp 18; Pulse Ox 97% on R/A; ha1 22:20 BP 143 / 94; Pulse 105; Resp 18; Pulse Ox 98% on R/A; ha1 21:11 Body Mass Index 30.79 (83.91 kg, 165.10 cm) as6 ED Course: 21:05 Patient arrived in ED. dt4 21:15 Triage completed. as6 21:16 Arm band placed on. as6 21:21 EKG completed in triage. Results shown to MD. as6 21:23 Milse Rodriguez MD is Attending Physician. sherri 21:48 Chyna Conner, GAVIN is Primary Nurse. ha1 21:49 Thor Causey MD is Hospitalizing Provider. sherri 22:46 Inserted saline lock: 18 gauge in right forearm, using aseptic technique. [email or web address] Administered Medications: 22:18 Drug: Aspirin Chewable Tablet 324 mg Route: PO; 1 08/19 00:01 Follow up: Response: No adverse reaction [facility] 08/18 22:18 Drug: Lopressor (metoprolol TARTRATE) 50 mg Route: PO; 1 08/19 00:00 Follow up: Response: No adverse reaction 3 08/18 22:30 Drug: NS 0.9% 500 ml Route: IV; Rate: bolus; Site: right forearm; kb3 23:45 Follow up: Response: No adverse reaction; IV Status: Completed infusion; IV Intake: kb3 500ml 23:08 Drug: morphine 2 mg Route: IVP; Infused Over: 4 mins; Site: right forearm; 1 08/19 00:00 Follow up: Response: No adverse reaction; Pain is decreased 3 08/18 23:08 Drug: Zofran (Ondansetron) 4 mg Route: IVP; Site: right forearm; 1 23:59 Follow up: Response: No adverse reaction; Nausea is decreased 3 23:08 Drug: Lovenox (enoxaparin) 80 mg Route: Sub-Q; Site: right lower abdomen; 1 23:59 Follow up: Response: No adverse reaction 3 23:09 Drug: Pepcid (famotidine) 20 mg Route: IVP; Site: left forearm; 1 08/19 00:01 Follow up: Response: No adverse reaction 3 08/18 23:45 Drug: NS 0.9% 1000 ml Route: IV; Rate: 125 ml/hr; Site: right forearm; kb3 23:56 Drug: Insulin Regular Human 5 units {Co-Signature: alexa (Chyna Conner RN).} Route: Sub-Q; kd3 Site: abdomen; 23:57 Drug: Insulin Regular Human 7 units {Co-Signature: alexa (Chyna Conner RN).} Route: IVP; kb3 Site: right antecubital; 23:58 Drug: NS 0.9% 1000 ml Route: IV; Rate: 1 bolus; Site: right wrist; kb3 Intake: 23:45 IV: 500ml; Total: 500ml. kb3 Outcome: 21:50 Decision to Hospitalize by Provider. [facility] 08/19 10:30 Patient left the ED. ss Signatures: Miles Rodriguez MD MD cha Smirch, Shelby, RN RN ss Colin Álvarez RN RN jb4 Leonel Earl RN RN as6 Julita Meléndez RN RN kd3 Chyna Conner, RN RN ha1 Ely Manzo, RN RN kb3 Arielle Funes dt4 Chyna Conner RN ha1
[2022-08-18] MEDS ORDERED: METOPROLOL TAR 25 MG TAB ONE (21:53)
[2022-08-18] MEDS ORDERED: ASPIRIN 81 MG CHEWABLE TABLET ONE (21:53)
[2022-08-18] MEDS ORDERED: FAMOTIDINE 20 MG/2 ML VIAL IV ONE (21:54)
[2022-08-18] MEDS ORDERED: NA CHLORIDE 0.9% 1,000 ML ONE ×2 (21:54→23:42)
[2022-08-18] MEDS ORDERED: NA CHLORIDE 0.9% 500 ML ONE (21:54)
[2022-08-18 22:32] LABS: Absolute Lymphocytes (CBC) 1.4 K/uL (0.7-4.9); Hematocrit 36.5 % (36.0-45.0); Lymphocytes % 19.7 % (15.3-44.8); MCV 82.7 fL (80-100); MPV 6.3 fL (7.6-11.3); RBC Red Blood Cell Count 4.41 M/uL (3.86-4.86)
--- NOTE | 2022-08-18 22:34 | RAD REPORT ---
EXAM DESCRIPTION: RAD - Chest Single View - 08/18/2022 9:52 pm CLINICAL HISTORY: CHEST PAIN COMPARISON: Portable 08/20/2021 TECHNIQUE: AP portable chest image was obtained 08/18/2022 9:52 pm . FINDINGS: Lungs are clear. Interstitial pattern matches comparison. Heart and vasculature are normal . No measurable pleural effusion and no pneumothorax. No acute bony abnormality seen. No acute aortic findings suspected. IMPRESSION: No acute cardiopulmonary process. No significant change from comparison study.
[2022-08-18 22:35] LABS: SARS-CoV-2 Antigen Rapid Res Negative (Negative)
[2022-08-18] MEDS ORDERED: MORPHINE 2 MG/ML SYR ONE (22:50)
[2022-08-18 22:51] LABS: Protime INR 0.89
[2022-08-18] MEDS ORDERED: ENOXAPARIN 80 MG/0.8 ML SQ ONE (22:51)
[2022-08-18] MEDS ORDERED: ONDANSETRON 4 MG/2 ML VIAL ONE (22:51)
[2022-08-18 22:58] LABS: BUN Blood Urea Nitrogen 29 mg/dL (7-18); Bicarbonate 26 mmol/L (21-32); Glucose Level 396 mg/dL (74-106); Sodium Level 131 mmol/L (136-145)
[2022-08-18 22:59] LABS: ALT/SGPT 31 U/L (12-78); Albumin 3.6 g/dL (3.4-5.0); Alkaline Phosphatase 127 U/L (45-117); Bilirubin Total 0.4 mg/dL (0.2-1.0); Glomerular Filtration Rate 37 ml/min (=/>90); Lipase 1664 U/L (73-393); NT PRO-BNP 20 pg/mL (<125); Protein, Total 7.5 g/dL (6.4-8.2); Troponin High Sensitivity 7.5 pg/mL (<58.9)
[2022-08-18 23:01] LABS: AST/SGOT 20 U/L (15-37); Bilirubin Direct < 0.1 mg/dL (0-0.2); Potassium 3.7 mmol/L (3.5-5.1)
[2022-08-18 23:36] LABS: HDL Cholesterol 32 mg/dL (40-60)
[2022-08-18] MEDS ORDERED: INSULIN -REGULAR HUMAN 50 UNIT/0.5 ML ML ONE (23:45)
[2022-08-19 00:28] LABS: LDL, Direct 37 mg/dL (100-129)
--- NOTE | 2022-08-19 01:55 | P.HP ---
Certification for Inpatient Patient admitted to: Inpatient With expected LOS: <2 Midnights Patient will require the following post-hospital care: None Practitioner: I am a practitioner with admitting privileges, knowledge of patient current condition, hospital course, and medical plan of care. Services: Services provided to patient in accordance with Admission requirements found in Title 42 Section 412.3 of the Code of Federal Regulations Patient History Date of Service: 08/19/22 Reason for admission: Chest Pain History of Present Illness: Patient is a 57 year old female with history of IDDM, hypertension, HLD, and schizophrenia who presented to the ED with complaints of chest pain. Patient reports that she has had chest pain on and off for 1 month now, but it has been worse the past couple of days. She says it is in the middle of her chest and is associated with nausea. She was hypertensive in the ED. Her labs are significant for glucose 396, BUN 29, Cr 1.6, lipase 1664, triglycerides 1959. CT chest abd pelv negative. Abdominal US pending. She was given morphine, IVF, pepcid, metoprolol, subcutaenous and IV insulin. Her blood pressure and chest pain have improved. She is admitted for further management. Allergies No Known Allergies Allergy (Verified 10/22/17 12:09) Home Medications: Amitriptyline [Elavil*] 50 mg PO BEDTIME 11/06/16 Insulin NPH Human [Novolin N (Humulin N)*] 30 units SQ BID 11/06/16 Lisinopril/Hydrochlorothiazide [Lisinopril-Hctz 20-12.5 mg Tab] 1 each PO DAILY 11/06/16 Metformin HCl [Metformin ER Osmotic] 1,000 mg PO BID 11/06/16 Metoprolol Tartrate [Lopressor*] 25 mg PO BID 11/06/16 Benztropine Mesylate [Cogentin] 2 mg PO TID 10/22/17 Gabapentin [Neurontin*] 100 mg PO QID 10/22/17 carBAMazepine [Tegretol*] 200 mg PO DAILY 10/22/17 carBAMazepine [Tegretol*] 400 mg PO BEDTIME 10/22/17 Levofloxacin [Levaquin] 500 mg PO DAILY #8 tablet 10/25/17 Nitrofurantoin Monohyd/M-Cryst [Macrobid 100 mg Capsule] 100 mg PO BID #12 capsule 10/25/17 metroNIDAZOLE [Flagyl] 500 mg PO Q8H #24 tablet 10/25/17 - Past Medical/Surgical History Diabetic: Yes -: HTN -: Diabetes-IDDM -: bipolar disorder -: schizophrenia Past Surgical History: Patient denies surgical history Psychosocial/ Personal History: Patient lives at home. - Family History Mother -: Hypertension, Diabetes Maternal Grandmother -: Cancer - Social History Smoking Status: Never smoker Alcohol use: No CD- Drugs: No Caffeine use: Yes Place of Residence: Home Review of Systems Cardiovascular: Chest Pain Gastrointestinal: Nausea Physical Examination - Physical Exam General: Alert, In no apparent distress HEENT: Atraumatic, PERRLA, EOMI, Sclerae nonicteric Neck: Supple, 2+ carotid pulse no bruit, No LAD, Without JVD or thyroid abnormality Respiratory: Clear to auscultation bilaterally, Normal air movement Cardiovascular: Regular rate/rhythm, Normal S1 S2 Gastrointestinal: Normal bowel sounds, No tenderness Musculoskeletal: No tenderness Integumentary: No rashes Neurological: Normal speech, Normal strength at 5/5 x4 extr, Normal tone, Normal affect - Studies Laboratory Data (last 24 hrs) 08/18/22 23:08: Triglycerides Cancelled, Cholesterol Cancelled, HDL Cholesterol Cancelled, Cholesterol/HDL Ratio Cancelled 08/18/22 22:15: PT 9.8, INR 0.89 08/18/22 22:15: WBC 7.40, Hgb 13.3, Hct 36.5, Plt Count 287 08/18/22 22:15: Sodium 131 L, Potassium 3.7, BUN 29 H, Creatinine 1.60 H, Glucose 396 H, Magnesium 2.0, Total Bilirubin 0.4, AST 20, ALT 31, Alkaline Phosphatase 127 H, Triglycerides 1959 H, Cholesterol 193, LDL Cholesterol Direct 37 L, HDL Cholesterol 32 L, Cholesterol/HDL Ratio 6.03, Lipase 1664 H Assessment and Plan - Problems (Diagnosis) (1) Chest pain Current Visit: Yes Status: Acute Qualifiers: Chest pain type: unspecified Qualified Code(s): R07.9 - Chest pain, unspecified (2) Hypertriglyceridemia Current Visit: Yes Status: Acute (3) Elevated lipase Current Visit: Yes Status: Acute (4) Type 2 diabetes mellitus Current Visit: Yes Status: Chronic Qualifiers: Diabetes mellitus inhalation therapy aide insulin use: with fci use Diabetes mellitus complication status: with hyperglycemia Qualified Code(s): E11.65 - Type 2 diabetes mellitus with hyperglycemia; Z79.4 - half-way (current) use of insulin (5) Acute kidney injury superimposed on CKD Current Visit: Yes Status: Acute - Plan -Continue IV fluids -Aggressive sliding scale insulin -Daily triglyceride and lipase level -A1c pending -Cardiology consult and echo ordered. Monitor on telemetry -Initial troponin negative. Will trend -Aspirin and atorvastatin daily -Monitor and replete electrolytes per protocol -Reconcile and continue home medications -Lovenox for VTE ppx -Full code Discharge Plan: Home Plan to discharge in: 48 Hours - Advance Directives Does patient have a Living Will: No Does patient have a Durable POA for Healthcare: No - Code Status/Comfort Care Code Status Assessed: Yes (Full) Critical Care: No Time Spent Managing Pts Care (In Minutes): 50
[2022-08-19] MEDS ORDERED: ONDANSETRON 4 MG/2 ML VIAL IV PRN (05:02)
[2022-08-19] MEDS: NA CHLORIDE 0.9% 1,000 ML IV SCH ×2 (05:02→09:59)
[2022-08-19] MEDS ORDERED: MORPHINE 2 MG/ML SYR IV PRN (05:02)
[2022-08-19] MEDS ORDERED: ACETAMINOPHEN 500 MG TAB PO PRN (05:02)
[2022-08-19 05:19] VITALS: BMI 30.7
[2022-08-19 05:47] LABS: Absolute Lymphocytes (CBC) 1.5 K/uL (0.7-4.9); Hematocrit 33.5 % (36.0-45.0); Lymphocytes % 26.8 % (15.3-44.8); MCV 83.2 fL (80-100); MPV 6.3 fL (7.6-11.3); RBC Red Blood Cell Count 4.02 M/uL (3.86-4.86)
[2022-08-19 06:24] LABS: Bilirubin Total 0.2 mg/dL (0.2-1.0); Potassium 3.7 mmol/L (3.5-5.1)
[2022-08-19 06:25] LABS: Albumin 2.9 g/dL (3.4-5.0); Magnesium 1.8; Protein, Total 6.3 g/dL (6.4-8.2); Troponin High Sensitivity 9.9 (<58.9)
[2022-08-19] MEDS: INSULIN -REGULAR HUMAN 50 UNIT/0.5 ML ML SQ SCH ×2 (07:30→12:03)
[2022-08-19] MEDS ORDERED: INFLUENZA VACCINE (for 6+ mo) 0.5 ML DOSE IMVAC ONE (08:00)
--- NOTE | 2022-08-19 08:14 | RAD REPORT ---
EXAM DESCRIPTION: US - Abdomen Exam Limited - 08/18/2022 10:33 pm CLINICAL HISTORY: Abdominal pain. COMPARISON: 2013 FINDINGS: The gallbladder wall is not thickened. A gallstone is not seen. Mildly contracted gallbla dder. The biliary tree is normal caliber. IMPRESSION: Mildly contracted gallbladder. Otherwise unremarkable exam
[2022-08-19] MEDS ORDERED: REGADENOSON 0.4 MG/5 ML SYR IV ONE (08:18)
[2022-08-19] MEDS ORDERED: ASPIRIN EC 81 MG TAB PO SCH (09:00)
[2022-08-19] MEDS: ENOXAPARIN 40 MG/0.4 ML SQ SCH ×2 (09:00→11:51)
[2022-08-19] MEDS ORDERED: NA CHLORIDE 0.9% 1,000 ML ONE (09:55)
[2022-08-19 10:48] VITALS: O2SAT 98
--- NOTE | 2022-08-19 11:04 | CON ---
Date of Consultation: 08/19/2022 Reason For Consultation: Chest pain. History Of Present Illness: Ms. Jacobsen is 57. No previous cardiac history, although she had many cardiac risk factors. She has hypertension, diabetes, dyslipidemia, history of bipolar disorder, and schizophrenia. She came in with midsternal chest pain, sharp, stabbing, worse with breathing, not e xertional, nonradiating. No nausea, vomiting, diaphoresis, PND, orthopnea, pedal edema, palpitation, or syncope. CT has been ruled out already. EKG is unremarkable. Chest x-ray is unremarkable. Den ied PND, orthopnea, pedal edema, palpitation, syncope, fever, or chills. Past Medical History: As stated above. Allergies: NONE. Review of Systems: Negative. Social History: Negative. Family History: Negative. Medications: Include Elavil, Cogentin, Neurontin, insulin, Levaquin, metformin, Tegretol, Flagyl, me toprolol, and lisinopril with hydrochlorothiazide. Physical Examination: Vital Signs: Stable, afebrile. HEENT: Negative. Neck: Supple with no bruit. Chest: Clear. Cardiac: Revealed a regular rhythm and rate. No murmurs, gallops, or rubs. Abdomen: Benign. Extremities: Revealed no clubbing, cyanosis, or edema. Diagnostic Data: Her EKG is negative. Chest x-ray is negative. Troponin is negative. Triglyceride is 1348. Lipase is 815. Glucose is 253. Impression And Plan: 1.Atypical chest pain, does not sound cardiac. Normal EKG and normal troponin. Many risk factors f or heart disease. Echocardiogram is pending. Stress test is pending. 2.Dyslipidemia, severe. The patient needs to be on Tricor in addition to which she is taking. 3.Elevated lipase, may be secondary to the hypertriglyceridemia and fatty liver or possibly pancreat itis, although her abdomen may be reasonable. 4.Diabetes, poorly controlled. 5.Hypertension, well controlled. 6.Bipolar disorder. 7.Schizophrenia. Again, continue present regimen, add Tricor, consider an abdominal ultrasound, obt ain an echocardiogram and a stress test. We will continue to follow. SHIVANI/MICHELLE Voice ID: [id number] Report ID: [id number]
--- NOTE | 2022-08-19 11:51 | RAD REPORT ---
EXAM DESCRIPTION: NM - Rest Stress Cardiac Imaging - 08/19/2022 11:38 am CLINICAL HISTORY: Chest pain. COMPARISON: 2012 TECHNIQUE: The patient was administered 10.6 mCi of Tc 99m Sestamibi prior to resting SPECT imaging of the heart. The patient was then administered 30.7 mCi of Tc 99m Sestamibi following exercise or ph armacologic stress. Multiplanar SPECT images were reviewed. FINDINGS: A small to moderate area of diminished radiotracer activity involves the apical left ventr icular myocardium on rest and stress sequences. The left ventricular ejection fraction equals 65% IMPRESSION: Small to moderate apparent fixed perfusion defect involving the apical left ventricular myocardium may indicate an infarct or be physiologic apical thinning. No evidence of stress-induced ischemia
[2022-08-19 12:01] VITALS: BP 152/90; TEMP 97.1
--- NOTE | 2022-08-19 14:05 | P.DS ---
Admission Date: 08/19/22 Discharge Date: 08/19/22 Disposition: ROUTINE DISCHARGE Discharge Condition: FAIR Reason for Admission: Chest Pain - Problems (1) Acute pancreatitis Current Visit: Yes Status: Acute (2) Chest pain Current Visit: Yes Status: Acute Qualifiers: Chest pain type: unspecified Qualified Code(s): R07.9 - Chest pain, unspecified (3) Hypertriglyceridemia Current Visit: Yes Status: Acute (4) Colitis Onset Date: 11/06/16 Current Visit: No Status: Acute Brief History of Present Illness: Patient is a 57 year old female with history of IDDM, hypertension, HLD, and schizophrenia who presented to the ED with complaints of chest pain. Patient rep orted that she has had chest pain on and off for 1 month now, but it has been worse the past couple of days. Chest pain associated with nausea. She was hypertensive in the ED. Her labs are significant for glucose 396, BUN 29, Cr 1.6, lipase 1664, triglycerides 1959. CT chest abd/pelvis negative. She was given morphine, IVF, pepcid, metoprolol, subcutaenous and IV insulin. Her blood pressure and chest pain improved. Patient placed on observation for further management. Hospital Course: Troponin trended was negative. Patient seen in consultation by cardiology-Dr. Beal recommended nuclear stress test given her risk factors. Nuclear stress test showed fixed defect, no stress-induced ischemia. ACS ruled out. Lipid profile demonstrated markedly elevated triglyceride level, lipase level also elevated. Abdominal ultrasound unremarkable. Patient is currently asymptomatic and requests to go home. She is prescribed Tricor for hypertriglyceridemia. Her blood sugar readings were elevated. Patient mentioned her PCP changed her diabetes medications to Invokana and Ozempic. I suggested to patient she will need insulin therapy in addition to her new antidiabetics. Patient stated she would like to discuss this recommendation with her PCP. Vital Signs/Physical Exam: Temp Pulse Resp BP Pulse Ox 97.1 F 94 H 18 152/90 H 98 08/19/22 12:00 08/19/22 12:00 08/19/22 12:00 08/19/22 12:00 08/19/22 12:00 General: Alert, In no apparent distress, Oriented x3, Obese HEENT: Mucous membr. moist/pink Neck: Supple, JVD not distended Respiratory: Clear to auscultation bilaterally, Normal air movement Cardiovascular: No edema, Regular rate/rhythm, Normal S1 S2, No murmurs Gastrointestinal: Normal bowel sounds, Soft and benign, Non-distended, No tenderness Musculoskeletal: No swelling Integumentary: No rashes Neurological: Normal strength at 5/5 x4 extr, Cranial nerves 3-12 intact Lymphatics: No axilla or inguinal lymphadenopathy Laboratory Data at Discharge: WBC 5.60 K/uL (4.3-10.9) 08/19/22 05:28 Hgb 12.0 g/dL (12.0-15.0) D 08/19/22 05:28 Hct 33.5 % (36.0-45.0) L 08/19/22 05:28 Plt Count 238 K/uL (152-406) 08/19/22 05:28 PT 9.8 SECONDS (9.5-12.5) 08/18/22 22:15 INR 0.89 08/18/22 22:15 Sodium 137 mmol/L (136-145) D 08/19/22 05:28 Potassium 3.7 mmol/L (3.5-5.1) 08/19/22 05:28 BUN 22 mg/dL (7-18) H 08/19/22 05:28 Creatinine 0.98 mg/dL (0.55-1.3) 08/19/22 05:28 Glucose 253 mg/dL (74-106) H 08/19/22 05:28 Phosphorus 3.0 mg/dL (2.5-4.9) 08/19/22 05:28 Magnesium 1.8 08/19/22 05:28 Total Bilirubin 0.2 mg/dL (0.2-1.0) 08/19/22 05:28 AST 15 U/L (15-37) 08/19/22 05:28 ALT 29 U/L (12-78) 08/19/22 05:28 Alkaline Phosphatase 108 U/L (45-117) 08/19/22 05:28 Triglycerides 1348 mg/dL (<150) H 08/19/22 05:28 Cholesterol Cancelled 08/18/22 23:08 LDL Cholesterol Direct 40 mg/dL (100-129) L 08/19/22 05:28 HDL Cholesterol Cancelled 08/18/22 23:08 Cholesterol/HDL Ratio Cancelled 08/18/22 23:08 Lipase 815 U/L (73-393) H 08/19/22 05:28 Home Medications: Amitriptyline [Elavil*] 50 mg PO BEDTIME 11/06/16 Insulin NPH Human [Novolin N (Humulin N)*] 30 units SQ BID 11/06/16 Lisinopril/Hydrochlorothiazide [Lisinopril-Hctz 20-12.5 mg Tab] 1 each PO DAILY 11/06/16 Metformin HCl [Metformin ER Osmotic] 1,000 mg PO BID 11/06/16 Metoprolol Tartrate [Lopressor*] 25 mg PO BID 11/06/16 Benztropine Mesylate [Cogentin] 2 mg PO TID 10/22/17 Gabapentin [Neurontin*] 100 mg PO QID 10/22/17 carBAMazepine [Tegretol*] 200 mg PO DAILY 10/22/17 carBAMazepine [Tegretol*] 400 mg PO BEDTIME 10/22/17 Aspirin [Aspirin EC 81 MG] 81 mg PO DAILY #30 tab 08/19/22 Atorvastatin Calcium [Lipitor] 40 mg PO BEDTIME #30 tab 08/19/22 Fenofibrate [Tricor] 145 mg PO DAILY #30 tab 08/19/22 New Medications: Aspirin [Aspirin EC 81 MG] 81 mg PO DAILY #30 tab Atorvastatin Calcium [Lipitor] 40 mg PO BEDTIME #30 tab Fenofibrate [Tricor] 145 mg PO DAILY #30 tab Diet: ADA Activity: Ad melania Followup: Bryanna Lawrence PA [Primary Care Provider] - 1 Week
--- NOTE | 2022-08-19 18:10 | RAD REPORT ---
EXAM DESCRIPTION: CT - Chest Abd Pelvis Wo Con - 08/18/2022 11:39 pm CLINICAL HISTORY: 57 years Female chest pain COMPARISON: CT abdomen and pelvis dated November 06, 2021 TECHNIQUE: Images were obtained and axial, sagittal, and coronal planes. No intravenous or oral cont rast was administered. This exam was performed according to our departmental dose-optimization program which includes use of Automated Exposure Control, adjustment of the mA and/or kV according to patient size and/or use of i terative reconstruction technique. FINDINGS: CT chest: No dilatation aortic root. No pleural effusions bilaterally. Trace pericardial e ffusion anteriorly. No adenopathy. No lung parenchymal infiltrates or nodules seen. No pneumothorax. No acute osseous abnormality. CT abdomen and pelvis: No abnormality involving the liver, mass lesion, pancreas, gallbladder, or adr enal glands bilaterally. Accessory splenic tissue. No obstructing renal or ureteral calculi bilateral ly. No hydronephrosis bilaterally. Moderate to marked bladder distention. Appendix within normal limi ts. No bowel obstruction, perforation, or inflammation. No acute osseous abnormality. Surgical clips right retroperitoneum. IMPRESSION: No acute intrathoracic abnormality. No acute intra-abdominal abnormality. Electronically signed by: Yi Cervantes MD 08/19/2022 1:35 AM CDT Due to temporary technical issues with the PACS/Fluency reporting system, reports are being signed by the in house radiologists without review as a courtesy to insure prompt reporting. The interpreting radiologist is fully responsible for the content of the report.
[2022-08-19] MEDS ORDERED: ATORVASTATIN 40 MG TAB PO SCH (21:00)
--- NOTE | 2022-08-20 07:31 | ECHO ---
HEIGHT: 5 ft 5 in WEIGHT: 184 lb 15.838 oz DATE OF STUDY: 08/19/[address]: Leanne Floyd 2-DIMENSIONAL: YES M.MODE: YES DOPPLER: YES COLOR FLOW: YES TDS: NO PORTABLE: YES DEFINITY: NO BUBBLE STUDY: NO DIAGNOSIS: CHEST PAIN CARDIAC HISTORY: CATHERIZATION: SURGERY: PROSTHETIC VALVE: PACEMAKER: MEASUREMENTS (cm) DIASTOLIC (NORMALS) SYSTOLIC (NORMALS) IVSd 1.1 (0.6-1.2) LA Diam (1.9-4.0) LVEF 69% LVIDd 3.6 (3.5-5.7) LVIDs 2.3 (2.0-3.5) %FS 38% LVPWd 1.2 (0.6-1.2) Ao Diam 2.9 (2.0-3.7) 2 DIMENSIONAL ASSESSMENT: RIGHT ATRIUM: NORMAL LEFT ATRIUM: NORMAL RIGHT VENTRICLE: NORMAL LEFT VENTRICLE: NORMAL TRICUSPID VALVE: NORMAL MITRAL VALVE: NORMAL PULMONIC VALVE: NORMAL AORTIC VALVE: NORMAL PERICARDIAL EFFUSION: NONE AORTIC ROOT: NORMAL LEFT VENTRICULAR WALL MOTION: NORMAL DOPPLER/COLOR FLOW: NORMAL COMMENTS: NORMAL LEFT VENTRICULAR EJECTION FRACTION 60-65%. NORMAL WALL MOTION. NORMAL STUDY. TECHNOLOGIST: Brain EDUARDO
--- NOTE | 2022-08-20 07:35 | TREADPHA ---
DX: CHEST PAIN Date of Study: 08/19/2022 Ht: 5' 5 " Wt: 184 lb 15.838 oz Consulting Physician: KEON MEDICATIONS: ASPIRIN, LIPITOR, LOVENOX, NOVOLIN-R, ZOFRAN HISTORY: 57 YEAR OLD FEMALE WITH COMPLAINTS OF CHEST PAIN. HISTORY OF HYPERTENSION, DIABETES MELLITUS, HIGH CHOLESTROL, BIPOLAR, NON SMOKER, NON DRINKER. PHYSICIAL EXAMINATION: RESTING B.P.: 146/92 RESTING H.R.: 94 RESTING EKG: WITHIN NORMAL LIMITS PROTOCOL: LEXISCAN EXERCISE TIME: 3:30 B.P. AT PEAK STRESS: 120/66 IMPRESSION: LEXISCAN INJECTED FOLLOWED BY CARDIOLITE PER PROTOCOL. SEE NUCLEAR REPORT. NO SUPRAVENTRICULAR OR VENTRICULAR TACHYCARDIA. NO PREMATURE VENTRICULAR COMPLEXES. NO PREMATURE ATRIAL COMPLEXES. PATIENTS REPORTS NO CHEST PAIN. NO EKG CHANGES WITH LEXISCAN.
--- NOTE | 2022-08-20 07:53 | EKG ---
Test Date: 2022-08-18 Test Time: 21:23:55 [employer] Supervisor: JAMES MEASUREMENT RESULTS: Intervals: Rate: 113 SD: 168 QRSD: 100 QT: 340 QTc: 466 [place]: P: 51 SD: 168 QRS: -55 T: 38 INTERPRETIVE STATEMENTS: Sinus tachycardia Left anterior fascicular block Minimal voltage criteria for LVH, may be normal variant Possible Anterior infarct, age undetermined Abnormal ECG Compared to ECG 11/11/2018 16:54:19 No significant changes Electronically Signed On 08-20-22 07:48:33 CDT by Anthony Beal
== END 2022-08-19 15:30 | disposition home or self-care (01) ==
LOC: ER 21:02 → ERHOLD 08-19 01:48 → INTOOBSV 08-19 01:48 → 2ND 08-19 09:53
PROVIDERS: ADMIT Internal Medicine; ATTEND Internal Medicine
DX: R07.9 Chest pain, unspecified (principal); E11.9 Type 2 diabetes mellitus without complications; I10 Essential (primary) hypertension; R74.8 Abnormal levels of other serum enzymes; E78.5 Hyperlipidemia, unspecified; F31.9 Bipolar disorder, unspecified; F20.9 Schizophrenia, unspecified; E78.1 Pure hyperglyceridemia; E11.65 Type 2 diabetes mellitus with hyperglycemia; N17.9 Acute kidney failure, unspecified; Z79.4 Long term (current) use of insulin; Z20.822 Contact with and (suspected) exposure to COVID-19
CPT/HCPCS: 93005; 93017; 93306; 85025 ×2; 80048; 36415; 83721 ×2; 83735 ×2; 84478; 84100; 85610; 80061; 82947 ×2; 80076; 83036; 84484 ×2; 83690 ×2; 80053; 83880; 71250; 74176; 71045; 76705; 78452; 96372; 99284; 87811; J1815 ×2; J2270; J2785; J7040; J7030 ×3; J2405; A9500; G0378 ×2; J1650